=== PATIENT | female | born 1940 | race Caucasian/White ===

== ENCOUNTER 2019-07-27 15:22 | Outpatient (CLI) | payer MEDICARE, SELFPAY ==
--- NOTE | ~2019-07-27 | XR_ITS ---
XR chest 2V 07/27/2019 15:41 Indication: Cough with shortness of breath Procedure: PA and lateral views of the chest Comparison: Comparison to multiple prior studies sequentially, with oldest reviewed study dated 08/22. Findings: Cardiomegaly. Improving right basilar airspace disease, consistent with resolving pneumonia . Left lung clear. No pleural effusion or pneumothorax. Impression: 1: Improving right basilar airspace disease, consistent with resolving pneumonia. Reviewed, dictated and finalized at location A. UATOR TRANSFER STUDENTS Impression: 1: Improving right basilar airspace disease, consistent with resolving pneumoni a.
== END 2019-07-27 15:23 | disposition home or self-care (01) ==
PROVIDERS: PCP Physician Assistant; Visit Provider Physician Assistant
DX: R93.89 Abnormal findings on diagnostic imaging of other specified body structures (principal)
CPT/HCPCS: 71046

== ENCOUNTER 2019-08-10 12:40 | Outpatient (CLI) | payer MEDICARE, SELFPAY ==
--- NOTE | ~2019-08-10 | MR_ITS ---
EXAMINATION: MR brain/brain stem wo con DATE: 08/10/2019 14:08 INDICATION: Abnormal gait. TECHNIQUE: Magnetic resonance imaging (MRI) of the brain and brainstem was performed without intraven ous contrast. Sequences included sagittal and axial T1-weighted FSE, axial diffusion-weighted FS EPI, axial T2*-weighted GRE, axial T2-weighted FLAIR Propeller, and axial T2-weighted Propeller. Apparent diffusion coefficient (ADC) maps were created. COMPARISON: Brain MRI 09/09/2006 FINDINGS: There are scattered areas of nonspecific increased T2-weighted signal intensity in the cere bral white matter and natalie. There is no intracranial hemorrhage, acute infarction, or abnormal intrac ranial mass lesion. The ventricles are normal in size. There is a trace right mastoid effusion. There are likely changes of ocular lens replacement surgeries. The paranasal sinuses are clear. IMPRESSION: 1. Moderate nonspecific cerebral white matter disease and pontine disease, which likely represents ch ronic small vessel ischemic disease, worsened from 09/09/2006. Reviewed, dictated and finalized at location A. GER FURNITURE IMPRESSION: 1. Moderate nonspecific cerebral white matter disease and pontine disease, whic h likely represents chronic small vessel ischemic disease, worsened from 09/10/19 07.
== END 2019-08-10 12:41 | disposition home or self-care (01) ==
LOC: ANHIMG 12:48
PROVIDERS: PCP Physician Assistant; Visit Provider Physician Assistant
DX: R26.89 Other abnormalities of gait and mobility (principal); R27.8 Other lack of coordination; R93.0 Abnormal findings on diagnostic imaging of skull and head, not elsewhere classified
CPT/HCPCS: 70551

== ENCOUNTER 2019-12-23 12:08 | Outpatient (CLI) | payer MEDICARE, SELFPAY ==
--- NOTE | ~2019-12-23 | MR_ITS ---
EXAMINATION: MR cervical spine wo con DATE: 12/23/2019 13:05 INDICATION: Ataxia. TECHNIQUE: Magnetic resonance imaging (MRI) of the cervical spine was performed without intravenous c ontrast. Sequences included sagittal T2-weighted FSE, sagittal T2-weighted FS FSE, sagittal T1-weight ed FSE, axial MERGE, and axial T2-weighted FSE. COMPARISON: None FINDINGS: There is 8 degrees levocurvature of cervical spine. Vertebral body heights are normal. Ther e is severely decreased disc height at C3-C4 and C4-C5 and mildly decreased disc height at C5-C6. The spinal cord signal intensity is normal. The following disc levels are specifically discussed: C2-C3: The disc does not extend beyond the endplate margin. There is no uncovertebral joint osteoarth ritis. There is mild bilateral facet joint osteoarthritis. There is no neural foraminal stenosis. The re is no central canal stenosis. C3-C4: The disc is bulging. There is mild right and moderate left uncovertebral joint osteoarthritis. There is no facet joint osteoarthritis. There is mild left neural foraminal stenosis. There is mild central canal stenosis. C4-C5: The disc is bulging. There is moderate bilateral uncovertebral joint osteoarthritis. There is no facet joint osteoarthritis. There is no neural foraminal stenosis. There is mild central canal wisam nosis. C5-C6: The disc is bulging. There is moderate right and mild left uncovertebral joint osteoarthritis. There is mild right facet joint osteoarthritis. There is mild right neural foraminal stenosis. There is mild central canal stenosis. C6-C7: The disc does not extend beyond the endplate margin. There is no uncovertebral joint osteoarth ritis. There is mild right facet joint osteoarthritis. There is no neural foraminal stenosis. There i s no central canal stenosis. C7-T1: The disc does not extend beyond the endplate margin. There is no uncovertebral joint osteoarth ritis. There is severe right and mild left facet joint osteoarthritis. There is mild right neural for aminal stenosis. There is no central canal stenosis. IMPRESSION: 1. Severe cervical spondylosis. Reviewed, dictated and finalized at location A.
== END 2019-12-23 12:09 | disposition home or self-care (01) ==
PROVIDERS: PCP Internal Medicine; Visit Provider Psychiatry & Neurology Neurology
DX: R27.0 Ataxia, unspecified (principal); M47.892 Other spondylosis, cervical region
CPT/HCPCS: 72141

== ENCOUNTER 2020-03-19 17:32 | Emergency (ER) | payer MEDICARE, SELFPAY ==
--- NOTE | ~2020-03-19 | CT_ITS ---
EXAMINATION: CT abdomen pelvis wo con EXAM DATE: 03/19/2020 19:57 INDICATION: Abdominal pain for several days. TECHNIQUE: Spiral CT of the abdomen and pelvis was performed without contrast. Axial, coronal and s agittal images were reviewed. The dose-length product (DLP) for this examination was 910.42 mGy-cm. The exposure was tailored according to patient size (auto mA exposure control), and iterative recons truction (ASIR) was used as additional dose reduction technique. Comparison is made to prior examinat ion from 05/09/2018. FINDINGS: Numerous mesenteric calcifications, along the root of the mesentery are again noted, with m ild increase in density. Can't really appreciate any noncalcified soft tissue component. Could be kitty or granulomatous process, carcinoid or treated malignancy. Nodular cirrhotic appearing liver. Spleen, adrenal glands, pancreas are unremarkable. There are chol ecystectomy clips. There is no nephrolithiasis or hydronephrosis. The uterus is not identified and has likely been surgically resected. The bladder is unremarkable. There is no retroperitoneal or p elvic lymphadenopathy. There is moderate scattered arteriosclerotic disease. Small umbilical, moder ate-sized infraumbilical fat-containing hernias. The appendix is normal. The stomach and small bowel are unremarkable. There is expected amount of c olonic stool. No free intraperitoneal gas. There is cardiomegaly and mild basilar bronchiectasis. The lung bases are unremarkable. There are no osteoblastic or osteolytic lesions identified. IMPRESSION: 1. Mild interval progression in amount of mesenteric root scattered calcifications, differential lawanda gnosis including prior granulomatous process, carcinoid, treated malignancy. 2. Small umbilical, moderate infraumbilical fat-containing hernias. 3. Cirrhosis. 4. Cardiomegaly. 5. Bronchiectasis. 6. No acute intra-abdominal findings. Reviewed, dictated and finalized at location A. IMPRESSION: 1. Mild interval progression in amount of mesenteric root scattered calcificat ions, differential diagnosis including prior granulomatous process, carcinoid, treated malignancy. 2. Small umbilical, moderate infraumbilical fat-containing hernias. 3. Cirrhosis. 4. Cardiomegaly. 5. Bronchiectasis. 6. No acute intra-abdominal findings.
[2020-03-19 18:47] VITALS: BP 151/74; PULSE 55; RESP 16; TEMP 36.1; O2SAT 100
[2020-03-19 19:09] LABS: Basophils Percent Auto 0.5 % (0.2-1.2); Eosinophils Absolute Auto 0.3 K/mm3 (0-0.3); Eosinophils Percent Auto 3.2 % (0-4.4); Hematocrit 39.6 % (37.0-47.0); Hemoglobin 12.8 g/dL (12.0-15.0); Immature Granulocyte Absolute 0.03 K/mm3 (0.00-0.031); Immature Granulocyte Percent A 0.4 % (0-0.5); Lymphocytes Absolute Auto 0.53 K/mm3 (0.9-3.2); Lymphocytes Percent Auto 6.3 % (18.3-44.2); Mean Corpuscular HGB Conc 32.3 g/dl (32-36); Mean Corpuscular Volume 92.7 fl (80-100); Mean Platelet Volume 9.8 fl (7.4-10.4); Monocytes Absolute Auto 0.6 K/mm3 (0.1-0.6); Monocytes Percent Auto 7.3 % (2.6-8.5); Neutrophils Percent Auto 82.3 % (45.5-73.1); Platelet Count Result 238 k/mm3 (150-375); Red Blood Count 4.27 M/mm3 (4.2-5.4); Red Cell Distribution Width 13.5 % (11.5-14.5); White Blood Count 8.5 K/mm3 (4.5-10.0)
[2020-03-19 19:15] LABS: Alanine Aminotransferase 26 U/L (4-35); Albumin Level 3.5 g/dL (3.5-5.1); Alkaline Phosphatase 212 U/L (38-126); Anion Gap 4 mmol/L (8-16); Aspartate Amino Transferase 42 U/L (14-36); Bilirubin,Total 0.5 mg/dL (0.2-1.3); Blood Urea Nitrogen 18 mg/dL (7-17); Calcium 9.1 mg/dL (8.4-10.2); Carbon Dioxide 32 mmol/L (22-30); Chloride 102 mmol/L (98-107); Estimated CRCL calculation 48 ml/min; Estimated Glomerular Filt Rate > 60; Glucose 97 mg/dL (65-105); Lipase 62 U/L (23-300); Potassium 3.8 mmol/L (3.4-5.0); Sodium 138 mmol/L (137-145)
[2020-03-19] MEDS: FAMOTIDINE 20 MG/2 ML VIAL IV PUSH (19:34)
[2020-03-19] MEDS: SODIUM CHLORIDE 0.9% IV 1,000 ML 999 ML IV CONT (19:36)
--- NOTE | 2020-03-19 19:42 | ED.ABDPAIN ---
HPI - Abdominal Pain General Chief Complaint: Abdominal Pain Stated Complaint: ABD PAIN INT X2D VIA EMS Time Seen by Provider: 03/19/20 19:26 Source: patient Mode of arrival: ambulatory Limitations: no limitations History of Present Illness HPI narrative: Patient is a 79-year-old female who presents to emergency department for evaluation of pain to the right side of the abdomen that has been intermittent for months has had intermittent episodes since yesterday patient currently does not have pain denies any fever chills nausea vomiting urinary or bowel issues presents in no distress has taken [id number] medication with minimal improvement has not been seen for this complaint Related Data Home Medications Medication Instructions Recorded Confirmed vilazodone [Viibryd] 10 mg PO DAILY 06/14/19 02/25/20 Allergies Allergy/AdvReac Type Severity Reaction Status Date / Time Gadolinium-Containing Allergy Severe Chest Pain Verified 02/19/20 14:44 Contrast Medi wheat Allergy Mild runny nose Verified 02/19/20 14:44 ioversol Allergy Unknown Other Verified 02/19/20 14:44 morphine Allergy Unknown Liver Verified 02/19/20 14:44 function tests abnormal acetaminophen AdvReac Severe kidney Verified 02/19/20 14:44 stop working tramadol AdvReac Severe Other Verified 02/19/20 14:44 benzonatate AdvReac Unknown Headache Verified 02/19/20 14:44 codeine AdvReac Unknown Headache Verified 02/19/20 14:44 Review of Systems Review of Systems: All systems reviewed & are unremarkable except as noted in HPI and below PMFSH Past Medical History Medical History (Updated 03/19/20 @ 20:26 by Zi Brown PA-C) Depression Irregular heart beat Loss of balance Thyroid disease Surgical History Surgical History H/O: hysterectomy 1974 History of cholecystectomy 1997 History of knee replacement - 1997, 1998, 1999, 2001 History of tubal ligation 1973 Family History Family History Father Hypertension Cerebrovascular accident, Onset Age: 70 Patient's father is Mother Hypertension Family history of aortic aneurysm, Onset Age: 81 Sibling Hypertension Family history of diabetes mellitus in first degree relative Family history of coronary artery disease Family history of premature coronary heart disease Patient's brother is Family history of malignant neoplasm of brain Family history of type 2 diabetes mellitus Social History Social History Smoking status: Never smoker Second hand tobacco smoke exposure: No Alcohol intake: never Substance use type: marijuana Exam Narrative: Exam Narrative: GENERAL: Well-appearing, obese, and in no acute distress. HEAD: Normocephalic, atraumatic. EYES: PERRLA and EOMI. ENT: Nares clear, no rhinorrhea or epistaxis. Mucous membranes moist. Oropharynx without tonsillar hypertrophy exudate or other lesions. NECK: Supple. No adenopathy or masses. CHEST: Clear to auscultation. No respiratory distress. No wheezes rales or rhonchi HEART: Regular rate and rhythm. No murmur heard. Normal peripheral pulses. ABDOMEN: Soft, right-sided abdominal tenderness without rebound or guarding, nondistended, normal active bowel sounds. EXTREMITIES: Normal range of motion. No edema. SKIN: Warm, dry, no rash. NEURO: No focal deficits. Alert and oriented x3. PSYCH: Normal mood and affect. Course Course Emergency Course: Patient in the room at this time aware of case findings treatment plan diagnosis agreeing to follow-up as directed or to return if symptoms worsen or concerns. Patient without high risk changes in the imaging and blood work will be referred back to primary care and GI for further evaluation of her long-term abdominal pain Vital Signs Radha
[2020-03-19 20:27] VITALS: BP 205/56; PULSE 57; RESP 15; O2SAT 100
[2020-03-19 20:39] LABS: Add Urine Microscopic? YES; Appearance Urine Clear (Clear); Bilirubin Urine Negative (Negative); Blood Urine Negative (Negative); Color Urine Yellow (Yellow); Glucose Urine UA Negative (Negative); Ketones Urine Negative (Negative); Leukocyte Esterase Ur Trace LEU/UL (Negative); Nitrate Urine Negative (Negative); Protein Urine Negative (Negative); RBC Urine 0-2 /hpf (0-2); Specific Grav Ur 1.008 (1.001-1.035); Squamous Epithelial Cell Urine Rare /hpf (Few); Urobilinogen Urine Negative mg/dL (<2.0)
== END 2020-03-19 21:17 | disposition home or self-care (01) ==
PROVIDERS: Emergency Provider Emergency Medicine; PCP Internal Medicine
DX: R10.9 Unspecified abdominal pain (principal); F32.9 Major depressive disorder, single episode, unspecified
CPT/HCPCS: 36415; 74176; 80053; 81001; 83690; 85025; 96361; 96374; 99284; J7030

== ENCOUNTER 2020-04-17 12:45 | Outpatient (CLI) | payer MEDICARE, SELFPAY ==
--- NOTE | 2020-04-17 14:30 | NEURO_ITS ---
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 # Fairly normal and symmetrical nerve conduction study in upper extremities. # Decreased responses in lower extremities. # Needle/EMG exam revealed neurogenic changes in lower extremities but no fibs or myotonia. # Findings compatible with neuropathy. Nerve Conduction Studies Anti Sensory Summary Table Stim Site NR Peak (ms) P-T Amp (?V) Site1 Site2 Delta-P (ms) Dist (cm) Abhi (m/s) Left Median Anti Sensory (2-3nd Digit) Wrist 3.5 31.4 Wrist 2-3nd Digit 3.5 14.0 40 Wrist 3.7 58.2 Wrist 2-3nd Digit 3.5 14.0 40 Right Median Anti Sensory (2-3nd Digit) Wrist 3.3 59.1 Wrist 2-3nd Digit 3.3 14.0 42 Wrist 3.2 31.4 Wrist 2-3nd Digit 3.3 14.0 42 Left Radial Anti Sensory (Base 1st Digit) Wrist 2.4 9.9 Wrist Base 1st Digit 2.4 0.0 Right Radial Anti Sensory (Base 1st Digit) Wrist 2.6 8.6 Wrist Base 1st Digit 2.6 0.0 Left Sup Fibular Anti Sensory (Ant Lat Mall) 14 cm 4.3 6.8 14 cm Ant Lat Mall 4.3 16.0 37 Right Sup Fibular Anti Sensory (Ant Lat Mall) NO RESPONSE 14 cm NR 14 cm Ant Lat Mall 16.0 Left Sural Anti Sensory (Lat Mall) Calf 4.2 8.4 Calf Lat Mall 4.2 16.0 38 Right Sural Anti Sensory (Lat Mall) Calf 3.4 9.7 Calf Lat Mall 3.4 16.0 47 Left Ulnar Anti Sensory (5th Digit) Wrist 2.6 58.3 Wrist 5th Digit 2.6 14.0 54 Right Ulnar Anti Sensory (5th Digit) Wrist 2.5 46.7 Wrist 5th Digit 2.5 14.0 56 Motor Summary Table Stim Site NR Onset (ms) O-P Amp (mV) Site1 Site2 Delta-0 (ms) Dist (cm) Abhi (m/s) Left Median Motor (Abd Poll Brev) Wrist 3.7 2.1 Elbow Wrist 5.1 30.0 59 Elbow 8.8 0.4 Right Median Motor (Abd Poll Brev) Wrist 3.0 6.2 Elbow Wrist 4.6 28.0 61 Elbow 7.6 3.4 Left Peroneal Motor (Vastus Med) Ankle 4.1 0.9 Popit Ankle 9.4 40.0 43 Popit 13.5 0.7 Right Peroneal Motor (Vastus Med) Ankle 4.8 0.2 Popit Ankle 9.0 39.0 43 Popit 13.8 0.9 Left Tibial Motor (Abd Wilson Brev) Ankle 4.5 0.4 Knee Ankle 10.6 43.0 41 Knee 15.1 3.1 Right Tibial Motor (Abd Wilson Brev) Ankle 4.9 1.6 Knee Ankle 9.9 42.0 42 Knee 14.8 1.1 Left Ulnar Motor (Abd Dig Minimi) Wrist 3.0 4.8 A Elbow Wrist 4.8 30.0 63 A Elbow 7.8 4.3 Right Ulnar Motor (Abd Dig Minimi) Wrist 2.9 4.5 A Elbow Wrist 5.0 29.0 58 A Elbow 7.9 3.1 F Wave Studies NR F-Lat (ms) L-R F-Lat (ms) Left Median (Mrkrs) (Abd Poll Brev) 29.87 1.66 Right Median (Mrkrs) (Abd Poll Brev) 28.20 1.66 Left Peroneal (Mrkrs) (EDB) 57.10 0.12 Right Peroneal (Mrkrs) (EDB) 57.21 0.12 Left Tibial (Mrkrs) (Abd Hallucis) 55.91 0.82 Right Tibial (Mrkrs) (Abd Hallucis) 56.73 0.82 Left Ulnar (Mrkrs) (Abd Dig Min) 28.38 1.29 Right Ulnar (Mrkrs) (Abd Dig Min) 29.68 1.29 EMG Side Muscle Nerve Root Ins Act Fibs Amp Dur Recrt Comment Right 1stDorInt Ulnar C8-T1 Nml Nml Nml Nml Nml Right Ext Indicis Radial (Post Int) C7-8 Nml Nml Nml Nml Nml Right Ext Digitorum Radial (Post Int) C7-8 Nml Nml Nml Nml Nml Right BrachioRad Radial C5-6 Nml Nml Nml Nml Nml Right PronatorTeres Median C6-7 Nml Nml Nml Nml Nml
== END 2020-04-17 12:46 | disposition home or self-care (01) ==
PROVIDERS: PCP Physician Assistant; Visit Provider Psychiatry & Neurology Neurology
DX: G62.9 Polyneuropathy, unspecified (principal)
CPT/HCPCS: 95886; 95913

== ENCOUNTER 2020-05-05 12:41 | Outpatient (NON) | payer MEDICARE, SELFPAY ==
[2020-05-07 13:30] LABS: SARS-CoV-2 RNA PCR Negative
== END 2020-05-05 12:42 ==
LOC: ANHCOVIDDT 12:43
PROVIDERS: PCP Physician Assistant; Visit Provider Physician Assistant
DX: R68.89 Other general symptoms and signs (principal); Z20.828 Contact with and (suspected) exposure to other viral communicable diseases
CPT/HCPCS: 87635; C9803; U0003

== ENCOUNTER 2020-09-09 12:31 | Outpatient (CLI) | payer MEDICARE, SELFPAY ==
--- NOTE | 2020-09-09 13:02 | ECHO_ITS ---
Patient Info Name: Jenniffer Cm Age: 80 years : 1940 Gender: Female Ht: 65 in Wt: 175 lbs BSA: 1.93 m2 HR: 63 bpm BP: 182 / 84 mmHg Heart Rhythm: Atrial Fibrillation Exam Date: 09/09/2020 1:18 PM Exam Location: [facility] Patient Status: Outpatient Admit Date: 09/09/2020 Staff Ordering Physician: Kirby Rodarte PA-C Braille Translator: Lucita Dang RDCS Attending Provider: Kirby Rodarte PA-C Referring Physician: Aster COOK; Exam Type: CA echo doppler color flow Study Info Indications R01.1 - Cardiac murmur, unspecified Complete two-dimensional, color flow and Doppler transthoracic echocardiogram is performed. Summary 1. Complete two-dimensional, color flow and Doppler transthoracic echocardiogram is performed. 2. Left ventricular chamber dimension is normal. 3. Ventricular septum is moderately to severely sigmoid shaped suggestive of hypertrophic cardiomyopathy. No LVOT obstruction. 4. Left ventricular systolic function is normal, estimated at 60-65%. 5. The left ventricular diastolic function is grade I diastolic dysfunction. 6. E/e' 17 is elevated. 7. Left atrial chamber dimension is mildly enlarged. 8. There is mild aortic valve sclerosis. 9. There is mild tricuspid valve regurgitation. 10. No pulmonary hypertension, estimated pulmonary arterial systolic pressure is 35 mmHg. Left Ventricle E/e' 17 is elevated. Ventricular septum is moderately to severely sigmoid shaped suggestive of hypertrophic cardiomyopathy. No LVOT obstruction. Left ventricular chamber dimension is normal. Left ventricular systolic function is normal, estimated at 60-65%. The left ventricular diastolic function is grade I diastolic dysfunction. Right Ventricle Right ventricular chamber dimension is normal. Right ventricular systolic function is normal. Left Atria Left atrial chamber dimension is mildly enlarged. Right Atria Right atrial chamber dimension is normal. Aortic Valve The aortic valve is trileaflet. There is mild aortic valve sclerosis. There is no aortic valve stenosis. There is no aortic valve regurgitation. Pulmonic Valve There is no pulmonic regurgitation. Mitral Valve There is no mitral valve stenosis. There is no mitral valve regurgitation. Tricuspid Valve There is mild tricuspid valve regurgitation. No pulmonary hypertension, estimated pulmonary arterial systolic pressure is 35 mmHg. Pericardium/Pleural There is no pericardial effusion. Inferior Vena Cava Normal inferior vena cava with >50% collapse upon inspiration consistent with normal right atrial pressure, 5 mmHg. Aorta The aortic root size at the sinus of Valsalva is normal. Left Ventricular Outflow Tract Name Value Normal LVOT 2D LVOT Diameter 1.8 cm LVOT Doppler LVOT Peak Gradient 4 mmHg LVOT Mean Gradient 2 mmHg LVOT VTI 24 cm LVOT VTI/AV VTI Ratio 0.5 LVOT Stroke Volume 62 ml LVOT CO 3.3 l/min
== END 2020-09-09 12:32 | disposition home or self-care (01) ==
LOC: ANHCARD 12:32
PROVIDERS: PCP Physician Assistant; Visit Provider Physician Assistant
DX: R01.1 Cardiac murmur, unspecified (principal); I36.1 Nonrheumatic tricuspid (valve) insufficiency; I35.8 Other nonrheumatic aortic valve disorders
CPT/HCPCS: 93306

== ENCOUNTER 2020-10-13 15:46 | Outpatient (CLI) | payer MEDICARE, SELFPAY ==
--- NOTE | ~2020-10-13 | XR_ITS ---
EXAMINATION: XR hip RT 2V w AP pelvis EXAM DATE: 10/13/2020 16:11 INDICATION: M25.551 - Pain in right hip; lat pain, fall months ago. TECHNIQUE: Right hip frontal, 'frog leg' projections for interpretation. Frontal projection pelvis. There is no prior study for comparison. FINDINGS: Smooth right hip femoral head contour, no radiographic evidence of avascular necrosis. 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 There is mild to moderate symmetric bilateral hip primary osteoarthritis. There are no acute or subacute pelvic or right hip fractures or dislocations identified. There is no subcu taneous gas. Amorphous calcifications corresponding to the mesenteric calcifications described on prior CT reports . There are no radiopaque foreign bodies. IMPRESSION: Chronic findings as above. Reviewed, dictated and finalized at location A. IMPRESSION: Chronic findings as above.
== END 2020-10-13 15:47 | disposition home or self-care (01) ==
PROVIDERS: PCP Physician Assistant; Visit Provider Physician Assistant
DX: M25.551 Pain in right hip (principal)
CPT/HCPCS: 73502

== ENCOUNTER → 2020-10-21 06:40 | Outpatient (CLI) | payer MEDICARE, SELFPAY ==
[2020-10-21 20:06] LABS: SARS-CoV-2 RNA PCR Negative
== END ==
PROVIDERS: PCP Physician Assistant; Visit Provider Physician Assistant
DX: R09.89 Other specified symptoms and signs involving the circulatory and respiratory systems (principal); Z20.822 Contact with and (suspected) exposure to COVID-19
CPT/HCPCS: C9803; U0003; U0005

== ENCOUNTER → 2021-02-12 02:44 | Outpatient (CLI) | payer MEDICARE, SELFPAY ==
[2021-02-12 20:44] LABS: SARS-CoV-2 RNA PCR Negative
== END ==
PROVIDERS: PCP Physician Assistant; Visit Provider Physician Assistant
DX: Z20.822 Contact with and (suspected) exposure to COVID-19 (principal)
CPT/HCPCS: C9803; U0003; U0005

== ENCOUNTER 2021-03-26 10:18 | Outpatient (CLI) | payer MEDICARE, SELFPAY ==
[2021-03-26 10:52] LABS: Add Urine Microscopic? NO; Appearance Urine Clear (Clear); Bilirubin Urine Negative (Negative); Blood Urine Negative (Negative); Color Urine Straw (Yellow); Glucose Urine UA Negative (Negative); Ketones Urine Negative (Negative); Leukocyte Esterase Ur Negative LEU/UL (NEGATIVE); Nitrate Urine Negative (Negative); Protein Urine Negative (Negative); Urobilinogen Urine Negative mg/dL (<2.0)
[2021-03-26 12:00] LABS: Specific Grav Ur 1.004 (1.001-1.035)
== END 2021-03-26 10:19 | disposition home or self-care (01) ==
LOC: ANHLAB 10:21
PROVIDERS: PCP Physician Assistant; Visit Provider Physician Assistant
DX: R30.0 Dysuria (principal)
CPT/HCPCS: 81003; 87086

== ENCOUNTER 2021-04-15 15:00 | Outpatient (CLI) | payer MEDICARE, SELFPAY ==
--- NOTE | ~2021-04-15 | US_ITS ---
EXAMINATION:US venous doppler LE BI INDICATION:Leg edema TECHNIQUE: Multiple grayscale, color flow and Doppler images of the right and left lower extremity de ep venous systems were obtained and reviewed. COMPARISON:01/02/2019 FINDINGS: The common femoral, superficial femoral and popliteal veins demonstrate normal respiratory variation, augmentation and compressibility. Color flow is also seen within the posterior tibial, pe roneal, greater saphenous and profunda veins. IMPRESSION: 1: No lower extremity deep venous thrombosis. Reviewed, dictated and finalized at location A. ERN VAULT CLERK
== END 2021-04-15 15:01 | disposition home or self-care (01) ==
PROVIDERS: PCP Physician Assistant; Visit Provider Internal Medicine Cardiovascular Disease
DX: R60.9 Edema, unspecified (principal)
CPT/HCPCS: 93970

== ENCOUNTER 2021-05-25 09:18 | Outpatient (CLI) | payer MEDICARE, SELFPAY ==
--- NOTE | ~2021-05-25 | US_ITS ---
US abdomen limited INDICATION: Liver nodule PROCEDURE: Realtime right upper abdominal ultrasound. COMPARISON: No prior studies for comparison. FINDINGS: The pancreas is normal without focal mass or pancreatic ductal dilation. Liver echotexture is heterogeneous. No discrete mass identified. There is normal directional flow in the portal vein. Gallbladder is surgically absent. Common bile duct measures 5 mm. No sonographic Redman's sign. IMPRESSION: 1: Coarse heterogeneous liver echotexture without discrete mass. 2: Status post cholecystectomy. Reviewed, dictated and finalized at location A. TANNER
== END 2021-05-25 09:19 | disposition home or self-care (01) ==
LOC: ANHIMG 09:27
PROVIDERS: PCP Physician Assistant
DX: K76.9 Liver disease, unspecified (principal); Z90.49 Acquired absence of other specified parts of digestive tract
CPT/HCPCS: 76705

== ENCOUNTER 2021-11-13 12:23 | Outpatient (CLI) | payer MEDICARE, SELFPAY ==
--- NOTE | 2021-11-13 12:37 | ECHO_ITS ---
Patient Info Name: Jenniffer Cm Age: 81 years : 1940 Gender: Female Ht: 65 in Wt: 180 lbs BSA: 1.96 m2 HR: 58 bpm BP: 152 / 72 mmHg Heart Rhythm: Bradycardia Technical Quality: Fair Exam Date: 11/13/2021 12:49 PM Exam Location: [facility] Patient Status: Outpatient Admit Date: 11/13/2021 Staff Ordering Physician: Donte Esqueda DO Etymology Teacher: Lucita Dang RDCS Attending Provider: Donte Esqueda DO Exam Type: CA echo doppler color flow Study Info Complete two-dimensional, color flow and Doppler transthoracic echocardiogram is performed. Summary 1. Complete two-dimensional, color flow and Doppler transthoracic echocardiogram is performed. 2. Left ventricular chamber dimension is normal. 3. Ventricular septum is sigmoid shaped. No LVOT obstruction. 4. Left ventricular systolic function is normal, estimated at 55-60%. 5. The left ventricular diastolic function is abnormal. 6. E/e' 18 is elevated. 7. Left atrial chamber dimension is moderately enlarged. 8. Right atrial chamber dimension is mildly enlarged. 9. There is mild aortic valve sclerosis. 10. There is mild tricuspid valve regurgitation. 11. Mild pulmonary hypertension, estimated pulmonary arterial systolic pressure is 44 mmHg. Left Ventricle E/e' 18 is elevated. Ventricular septum is sigmoid shaped. No LVOT obstruction. Left ventricular chamber dimension is normal. Left ventricular systolic function is normal, estimated at 55-60%. The left ventricular diastolic function is abnormal. Right Ventricle Right ventricular systolic function is normal and with normal TAPSE 1.8 cm. Right ventricular chamber dimension is normal. Left Atria Left atrial chamber dimension is moderately enlarged. Right Atria Right atrial chamber dimension is mildly enlarged. Aortic Valve The aortic valve is trileaflet. There is mild aortic valve sclerosis. There is no aortic valve stenosis. There is no aortic valve regurgitation. Pulmonic Valve There is no pulmonic regurgitation. Mitral Valve There is no mitral valve stenosis. There is no mitral valve regurgitation. Tricuspid Valve There is mild tricuspid valve regurgitation. Mild pulmonary hypertension, estimated pulmonary arterial systolic pressure is 44 mmHg. Pericardium/Pleural There is no pericardial effusion. Inferior Vena Cava Normal inferior vena cava with >50% collapse upon inspiration consistent with normal right atrial pressure, 5 mmHg. Aorta The aortic root size at the sinus of Valsalva is normal. Left Ventricular Outflow Tract Name Value Normal LVOT 2D LVOT Diameter 1.8 cm LVOT Doppler LVOT Peak Gradient 3 mmHg LVOT Mean Gradient 2 mmHg LVOT VTI 23 cm LVOT VTI/AV VTI Ratio 0.5 LVOT Stroke Volume 60 ml LVOT CO 3.2 l/min LVOT CI 1.6 l/min/m2 Pulmonic Valve Name
== END 2021-11-13 12:24 | disposition home or self-care (01) ==
LOC: ANHCARD 12:26
PROVIDERS: PCP Physician Assistant; Visit Provider Internal Medicine Cardiovascular Disease
DX: I42.1 Obstructive hypertrophic cardiomyopathy (principal); I27.20 Pulmonary hypertension, unspecified; I51.7 Cardiomegaly
CPT/HCPCS: 93306

== ENCOUNTER 2021-12-16 15:17 | Outpatient (CLI) | payer MEDICARE, SELFPAY ==
--- NOTE | ~2021-12-16 | XR_ITS ---
XR shoulder RT min 2V 12/16/2021 16:07 Indication: Right shoulder pain. History of arthritis. Procedure: 4 views right shoulder Comparison: 03/30/2016 Findings: Chronic healed right humeral neck fracture. Moderate glenohumeral joint osteoarthritis. No acute fracture or traumatic malalignment. Surrounding osseous structures and soft tissues are unremar kable. Impression: 1: No acute fracture. 2: Moderate right glenohumeral joint osteoarthritis. Reviewed, dictated and finalized at location A. Impression: 1: No acute fracture. 2: Moderate right glenohumeral joint osteoarthritis.
--- NOTE | ~2021-12-16 | XR_ITS ---
XR shoulder LT min 2V DATE: 12/16/2021 16:07 INDICATION: Pain and clicking of left shoulder TECHNIQUE: 4 views COMPARISON: None FINDINGS: There is diffuse osteopenia. There is severe left glenohumeral joint space narrowing and prominent periarticular spurring, compati ble with severe osteoarthritis. No fracture or dislocation, periosteal reaction or bone destruction is detected. No abnormal left ede ulder soft tissue calcification. IMPRESSION: Severe left glenohumeral osteoarthritis Osteopenia Reviewed, dictated and finalized at location A.
--- NOTE | ~2021-12-16 | XR_ITS ---
XR lumbar spine 6V w bending 12/16/2021 16:07 Indication: Low back pain Procedure: 7 views of the lumbar spine including flexion and extension views. Comparison: 01/07/2004 Findings: There is mild disc narrowing at all lumbar levels. There is grade 1 degenerative spondyloli sthesis at L4-5. No fracture, subluxation or dislocation. No significant alteration of alignment with flexion/extension. There is levoscoliosis. Amorphous calcifications are identified, likely mesenteri c calcifications. There are cholecystectomy clips. Impression: 1: Moderate lumbar spondylosis with levoscoliosis and grade 1 degenerative spondylolisthesis at L4-5. Reviewed, dictated and finalized at location A. Impression: 1: Moderate lumbar spondylosis with levoscoliosis and grade 1 degenerative spon dylolisthesis at L4-5.
--- NOTE | ~2021-12-16 | XR_ITS ---
XR hip BI 2V w AP pelvis 12/16/2021 16:06 Indication: Bilateral hip pain Procedure: 5 views of the hips including AP pelvis Comparison: 10/13/2020 Findings: Pelvic rings are intact. No fracture or traumatic malalignment. Sacral foramen are symmetri c. No significant joint space narrowing. No focal soft tissue abnormality. There is lower lumbar spon dylosis. Amorphous calcifications are identified overlying the sacrum, consistent with previously rachel ntified mesenteric calcifications. Impression: 1: No significant bone or joint abnormality. Reviewed, dictated and finalized at location A. Impression: 1: No significant bone or joint abnormality.
== END 2021-12-16 15:18 | disposition home or self-care (01) ==
PROVIDERS: PCP Physician Assistant; Visit Provider Physician Assistant
DX: M19.011 Primary osteoarthritis, right shoulder (principal); M25.552 Pain in left hip; M25.551 Pain in right hip; M19.012 Primary osteoarthritis, left shoulder; M43.16 Spondylolisthesis, lumbar region
CPT/HCPCS: 72114; 73030; 73521

== ENCOUNTER 2022-04-12 15:56 | Outpatient (CLI) | payer MEDICARE, SELFPAY ==
--- NOTE | ~2022-04-12 | XR_ITS ---
EXAMINATION: XR chest 2V DATE: 04/12/2022 16:27 INDICATION: Cough TECHNIQUE: Frontal and lateral views of the chest are obtained COMPARISON: 07/27/2019 FINDINGS: The lungs are free of acute opacities. No pleural effusion or pneumothorax. The cardiomedia stinal silhouette is normal. There is moderate thoracic spondylosis. IMPRESSION: 1. No acute cardiopulmonary abnormality. Reviewed, dictated and finalized at location B. 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
== END 2022-04-12 15:57 | disposition home or self-care (01) ==
PROVIDERS: PCP Physician Assistant; Visit Provider Internal Medicine
DX: R05.9 Cough, unspecified (principal)
CPT/HCPCS: 71046

== ENCOUNTER → 2022-05-17 14:44 | Outpatient (CLI) | payer MEDICARE, SELFPAY ==
--- NOTE | ~2022-05-17 | CT_ITS ---
Non-contrast CT scan of the Abdomen and Pelvis Clinical indication: Incisional hernia Technique: 5 mm axial scans were obtained through the abdomen and pelvis without intravenous or oral contrast. Dose reduction technique was used on this scan by utilizing automated exposure control and iterative reconstruction technique. The dose-length product (DLP) was 926.84 mGy-cm. COMPARISON: 03/19/2020 Findings: Images through the lung bases reveal minimal patchy groundglass opacities, which appear ne w from prior exam. There is mild subpleural reticulation and minimal interstitial thickening at the l cristhian bases. The liver, spleen, pancreas, kidneys, and adrenals appear normal. Cholecystectomy clips noted. There is no aortic aneurysm. There is no evidence of bowel obstruction. There are 2 separate, ventral, fat-containing hernias, ess entially stable from prior exam, both essentially the midline, near the level of the umbilicus. These can be best visualized on sagittal images 92-103. Coarse calcifications of the mesenteric root are s imilar to prior exam. Images through the pelvis were performed. There is no evidence of ascites or lymphadenopathy. Urinary bladder unremarkable. Patient appears to be posthysterectomy. No pelvic mass identified. Impression: 2 fat-containing ventral hernias, as detailed above, essentially stable from prior exam. Coarse calcifications the mesenteric root are unchanged. Differential diagnosis again includes granul omatous disease, carcinoid, or other treated malignancy. Minimal groundglass opacities the lung bases. Correlate for atelectatic change or atypical infection. Probable underlying minimal bibasilar chronic interstitial pulmonary disease. Reviewed, dictated and finalized at location [] SAWYER Impression: 2 fat-containing ventral hernias, as detailed above, essentially stable from pr ior exam. Coarse calcifications the mesenteric root are unchanged. Differential diagnosis again includes granulomatous disease, carcinoid, or other treated malignancy. Minimal groundglass opacities the lung bases. Correlate for atelectatic change or atypical infection. Probable underlying minimal bibasilar chronic interstiti al pulmonary disease.
== END ==
PROVIDERS: PCP Physician Assistant; Visit Provider Surgery
DX: K40.90 Unilateral inguinal hernia, without obstruction or gangrene, not specified as recurrent (principal); K43.2 Incisional hernia without obstruction or gangrene; K43.9 Ventral hernia without obstruction or gangrene
CPT/HCPCS: 74176

== ENCOUNTER 2022-07-12 13:31 | Inpatient (IN) | payer MEDICARE, SELFPAY ==
[2022-07-12] VITALS (17 sets, daily range): BP systolic 124–148; BP diastolic 70–90; PULSE 70–96; RESP 15–24; TEMP 36.6–36.9; O2SAT 92–100; BMI 30.4
--- NOTE | ~2022-07-12 | XR_ITS ---
EXAMINATION: XR chest 1V portable DATE: 07/12/2022 17:13 INDICATION: Cough TECHNIQUE: frontal view of the chest was obtained. COMPARISON: Chest radiograph dated 04/12/2022 FINDINGS: Mild reticular opacities with bronchial wall thickening the bilateral mid and lower lung zones. No fo vince airspace consolidation, pleural effusion or pneumothorax. The cardiomediastinal silhouette is nor mal. IMPRESSION: 1. Bronchial wall thickening and mild reticular opacities without associated airspace consolidation i n the bilateral mid and lower lung zones which could represent bronchitis, reactive airway disease/as thma, mild pulmonary edema or or atypical/viral pneumonia. Reviewed, dictated and finalized at location A. 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 Bronchial wall thickening and mild reticular opacities without associated ai rspace consolidation in the bilateral mid and lower lung zones which could repr esent bronchitis, reactive airway disease/asthma, mild pulmonary edema or or at ypical/viral pneumonia.
--- NOTE | ~2022-07-12 | CT_ITS ---
EXAMINATION: CT abdomen pelvis wo con DATE: 07/12/2022 18:57 INDICATION: Abdominal pain TECHNIQUE: Computed tomography (CT) of the abdomen and pelvis was performed without intravenous contr ast. Automated exposure control and iterative reconstruction technique were employed. The dose-length product was 744.56 mGy-cm. COMPARISON: 05/17/2022 and 03/19/2020 FINDINGS: There is been some interval progression in mild patchy consolidation groundglass opacities at the dmitry ateral lung bases with associated bronchiectatic changes which suggests acute on chronic pneumonia. S table appearance of a lenticular region of pleural thickening consistent with round atelectasis/scarr ing at the posterior medial right lower lobe which is unchanged since 03/19/2020 . Mild cardiomegaly. Atherosclerotic coronary artery calcification. No pericardial or pleural effusion. Cholecystectomy c lips the gallbladder fossa. Subtle nodular liver surface suspicious for cirrhosis. Spleen, pancreas, left kidney and bilateral adrenal glands are normal. Possible 1 cm right renal cyst. Small fat-contai keysha umbilical hernia and moderate-sized fat-containing infraumbilical ventral hernia. Small amount o f fluid scattered throughout the small bowel and colon consistent with diarrhea. No bowel obstruction . A few scattered colonic diverticula without adjacent inflammatory stranding to suggest diverticulit is. The appendix is not visualized. No pericecal inflammatory change to suggest acute appendicitis.. Stable appearance of chronic chunky coarse calcifications centered at the root of the mesentery with out appreciable associated soft tissue mass. Bladder is normal. The uterus is not identified and has likely been surgically resected. No free intraperitoneal gas or fluid. No pathologically enlarged abd ominal or pelvic lymphadenopathy. There is calcified atherosclerosis of the aorta and many of the ot er arteries. Mild lumbar levoscoliosis with severe spondylosis. IMPRESSION: 1. Small amount of fluid scattered throughout the large and small bowel consistent with diarrhea. Cor relate clinically for enteritis. No other evident acute intra-abdominal/pelvic process. 2. Increase in patchy lung disease with associated chronic bronchiectasis at the bilateral lung bases consistent with acute on chronic pneumonia. 3. Cirrhosis. 4. Unchanged small fat-containing umbilical and moderate-sized fat-containing infraumbilical ventral hernias. 5. Chronic coarse calcification is at the root of mesentery without evident soft tissue component. Di fferential includes granulomatous disease, sclerosing mesenteritis, carcinoid tumor or treated lympho ma. 6. Mild cardiomegaly. Reviewed, dictated and finalized at location A. 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 Small amount of fluid scattered throughout the large and small bowel consist ent with diarrhea. Correlate clinically for enteritis. No other evident acute i ntra-abdominal/pelvic process. 2. Increase in patchy lung disease with associated chronic bronchiectasis at th e bilateral lung bases consistent with acute on chronic pneumonia. 3. Cirrhosis. 4. Unchanged small fat-containing umbilical and moderate-sized fat-containing i nfraumbilical ventral hernias. 5. Chronic coarse calcification is at the root of mesentery without evident sof t tissue component. Differential includes granulomatous disease, sclerosing mes enteritis, carcinoid tumor or treated lymphoma. 6. Mild cardiomegaly.
--- NOTE | 2022-07-12 13:51 | ECG_ITS ---
Measurements Intervals [place] Rate: 71 P: 1 IL: 202 QRS: -41 QRSD: 116 T: 71 QT: 387 QTc: 423 Interpretive Statements SINUS RHYTHM WITH OCCASIONAL SUPRAVENTRICULAR PREMATURE COMPLEXES LEFT AXIS DEVIATION INCOMPLETE RIGHT BUNDLE BRANCH BLOCK LEFT VENTRICULAR HYPERTROPHY AND ST-T CHANGE ABNORMAL ECG COMPARED TO ECG 01/01/2019 14:53:51 INCOMPLETE RIGHT BUNDLE-BRANCH BLOCK NOW PRESENT Electronically Signed On 07-12-2022 16:24:35 HOSE TURNER by Omid Puckett M.D.
[2022-07-12 14:30] LABS: Basophils Percent Auto 0.5 % (0.2-1.2); Eosinophils Absolute Auto 0.1 K/mm3 (0-0.3); Eosinophils Percent Auto 2.2 % (0-4.4); Hemoglobin 12.9 g/dL (12.0-15.0); Immature Granulocyte Absolute 0.02 K/mm3 (0.00-0.031); Immature Granulocyte Percent A 0.3 % (0-0.5); Lymphocytes Percent Auto 6.7 % (18.3-44.2); Mean Corpuscular HGB Conc 31.5 g/dl (32-36); Mean Corpuscular Hemoglobin 29.9 pg (26-34); Mean Corpuscular Volume 94.9 fl (80-100); Mean Platelet Volume 9.6 fl (7.4-10.4); Monocytes Absolute Auto 0.8 K/mm3 (0.1-0.6); Neutrophils Absolute Auto 4.6 K/mm3 (1.3-6.7); Neutrophils Percent Auto 77.3 % (45.5-73.1); Platelet Count Result 218 k/mm3 (150-375); Red Blood Count 4.32 M/mm3 (4.2-5.4); Red Cell Distribution Width 13.5 % (11.5-14.5); White Blood Count 5.9 K/mm3 (4.5-10.0)
[2022-07-12 14:37] LABS: Alanine Aminotransferase 20 U/L (6-35); Albumin Level 3.4 g/dL (3.5-5.1); Alkaline Phosphatase 238 U/L (38-126); Anion Gap 4 mmol/L (8-16); Aspartate Amino Transferase 31 U/L (14-36); Bilirubin,Total 0.5 mg/dL (0.2-1.3); Blood Urea Nitrogen 23 mg/dL (7-17); Calcium 8.2 mg/dL (8.4-10.2); Carbon Dioxide 32 mmol/L (22-30); Chloride 104 mmol/L (98-107); Estimated CRCL calculation 39 ml/min; Estimated Glomerular Filt Rate 48; Glucose 108 mg/dL (65-110); Potassium 3.8 mmol/L (3.4-5.0); Sodium 140 mmol/L (137-145)
[2022-07-12 14:56] LABS: Influenza A QL RT-PCR Negative (Negative); Influenza B QL RT-PCR Negative (Negative); SARS-CoV-2 RNA PCR Negative
[2022-07-12 17:40] LABS: Appearance Urine Slightly Cloudy (Clear); Bilirubin Urine Negative (Negative); Blood Urine Negative (Negative); Color Urine Yellow (Yellow); Glucose Urine UA Negative (Negative); Ketones Urine Negative (Negative); Leukocyte Esterase Ur Negative LEU/UL (Negative); Nitrate Urine Negative (Negative); Protein Urine Negative (Negative); Urobilinogen Urine 0.2 mg/dL (<2.0); pH Urine 5.5 (5.0-9.0)
[2022-07-12 17:47] LABS: Mucus Urine Rare /lpf; RBC Urine 0-2 /hpf (0-2); Squamous Epithelial Cell Urine Occasional /hpf (Few); WBC Urine 0-3 /hpf
[2022-07-12 17:50] LABS: Add Urine Microscopic? YES
[2022-07-12] MEDS: ALBUTEROL SULFATE NEB 2.5 MG/3 ML INH INHALATION ×2 (17:56→20:02)
[2022-07-12] MEDS: IPRATROPIUM BR 0.02% INH SOLN 0.5 MG/2.5 ML VIAL INHALATION ×2 (17:56→20:02)
--- NOTE | 2022-07-12 18:17 | ED.GENADULT ---
HPI - General Adult General Chief complaint: Weakness Stated complaint: weakness Time Seen by Provider: 07/12/22 17:02 Source: RN notes reviewed History of Present Illness HPI narrative: Patient presents emergency department from home for weakness. Patient states she began to feel ill approximately 5 days ago. States she had a cough that has been nonproductive she states that with that she has been having some mild feelings of shortness of breath as well as generalized weakness and diarrhea. States she initially started taking Robitussin for cough that helped initially but does not seem to be helping any further she states that she has several episodes of diarrhea today she denies any measured fevers but states she has been feeling hot at home she denies chills denies chest pain or vomiting. He states he does have abdominal pain described as cramping with her diarrhea Related Data Allergies Allergy/AdvReac Type Severity Reaction Status Date / Time Gadolinium-Containing Allergy Severe Chest Pain Verified 05/17/22 11:07 Contrast Medi wheat Allergy Mild runny nose Verified 05/17/22 11:07 ioversol Allergy Unknown Other Verified 05/17/22 11:07 morphine Allergy Unknown Liver Verified 05/17/22 11:07 function tests abnormal acetaminophen AdvReac Severe kidney Verified 05/17/22 11:07 stop working tramadol AdvReac Severe Other Verified 05/17/22 11:07 benzonatate AdvReac Unknown Headache Verified 05/17/22 11:07 codeine AdvReac Unknown Headache Verified 05/17/22 11:07 Review of Systems Review of Systems: Gen. reports subjective fevers denies chills ENT: Denies congestion Respiratory: Reports cough and shortness of breath CV: Denies chest pain or palpitations GI: Denies abdominal pain nausea, emesis reports diarrhea Musculoskeletal: Denies back pain or muscle pain Neuro: Reports weakness Skin: Denies rash Except as documented, all other systems reviewed and negative [facility] Past Medical History Medical History Depression Elevated alkaline phosphatase level Irregular heart beat Loss of balance Thyroid disease Surgical History Surgical History H/O: hysterectomy 1974 History of cholecystectomy 1996 History of knee replacement - 1997, 1998, 1999, 2001 History of tubal ligation 1973 Family History Family History Father Hypertension Cerebrovascular accident, Onset Age: 70 Patient's father is Mother Hypertension Family history of aortic aneurysm, Onset Age: 81 Sibling Hypertension Family history of diabetes mellitus in first degree relative Family history of coronary artery disease Family history of premature coronary heart disease Patient's brother is Family history of malignant neoplasm of brain Family history of type 2 diabetes mellitus Social History Social History Smoking status: Never smoker Second hand tobacco smoke exposure: No Alcohol intake: never Substance use type: marijuana Lack of Transportation: No Lack of Food: Never True Current Housing: I Have Housing Concerned About Future Housing: No Difficulty Paying Gas/Electric Bills: No Difficulty Paying for Meds: No Currently Unemployed: No Education: High School Diploma/GED Difficulty w/ Childcare or Family Care: No Exam Narrative: APPEARANCE: No acute distress, nontoxic, resting in bed EYES: EOMI HEENT: Normocephalic, atraumatic, OMM RESPIRATORY: No respiratory distress. Wheezing throughout the bilateral upper lung zhou with coughing only no rhonchi or rales CARDIOVASCULAR: Regular rate and rhythm without murmurs rubs or gallops. ABDOMINAL: Soft, nondistended tender to palpation diffusely throughout the abdomen no rebound or guard
[2022-07-12 18:27] LABS: Lactic Acid Reflex 0.9 mmol/L (0.7-2.0)
[2022-07-12 18:39] LABS: NT Pro B Type Natriuretic Pept 1030 pg/mL (19.9-100); Troponin I < 0.012 ng/mL (0.000-0.034)
--- NOTE | 2022-07-12 18:52 | PC.NURSE ---
Patient in CT.
[2022-07-12] MEDS: methylPREDNISolone SOD SUCC 125 MG VIAL IV PUSH (19:02)
--- NOTE | 2022-07-12 20:01 | PM.IMHP ---
H&P: HPI History of Present Illness Date/Time: 07/12/22 20:01 Chief Complaint: Cough Narrative: This is an 82-year-old female with past medical history significant for HOCM, hypothyroidism. Patient presents to the emergency room due to persistent cough for the last 3 days or so which is productive of cough feels thick green secretions, has had some chills, rigors, generalized malaise, body aches and pains, generalized weakness, shortness of breath at exertion, denies palpitations, lightheadedness, syncope or near syncope, no chest pain. Preliminary workup was significant for: Chest x-ray was reported as: FINDINGS: Mild reticular opacities with bronchial wall thickening the bilateral mid and lower lung zones. No focal airspace consolidation, pleural effusion or pneumothorax. The cardiomediastinal silhouette is normal. IMPRESSION: 1. Bronchial wall thickening and mild reticular opacities without associated airspace consolidation in the bilateral mid and lower lung zones which could represent bronchitis, reactive airway disease/asthma, mild pulmonary edema or or atypical/viral pneumonia. CT of abdomen and pelvis was reported as; IMPRESSION: 1. Small amount of fluid scattered throughout the large and small bowel consistent with diarrhea. Correlate clinically for enteritis. No other evident acute intra-abdominal/pelvic process. 2. Increase in patchy lung disease with associated chronic bronchiectasis at the bilateral lung bases consistent with acute on chronic pneumonia. 3. Cirrhosis. 4. Unchanged small fat-containing umbilical and moderate-sized fat-containing infraumbilical ventral hernias. 5. Chronic coarse calcification is at the root of mesentery without evident soft tissue component. Differential includes granulomatous disease, sclerosing mesenteritis, carcinoid tumor or treated lymphoma. 6. Mild cardiomegaly. Review of Systems Review of Systems: Cough productive of greenish sputum, chills, rigors, shortness of breath, generalized malaise, body aches and pains, muscle weakness. Constitutional: Constitutional: Reports chills, Reports fatigue, Reports fever(s), Reports lethargy, Reports malaise, Reports poor appetite and Reports weakness Eyes: Eyes: Denies change in vision ENT: Denies dysphagia, Denies vertigo, Denies dizziness and Denies odynophagia Cardiovascular: Cardiovascular: Denies chest pain, Denies syncope, Denies lightheadedness and Denies palpitations Respiratory: Respiratory: Reports change in phlegm color, Reports chest congestion, Reports cough, Reports excessive phlegm production, Reports dyspnea and Reports dyspnea on exertion Gastrointestinal: Gastrointestinal: Denies abdominal pain, Denies dyspepsia, Denies heartburn, Denies diarrhea, Denies nausea and Denies vomiting Genitourinary: Genitourinary: Denies dysuria Musculoskeletal: Musculoskeletal: Reports muscle weakness Integumentary/Breasts: Skin/Breast: Denies rash Neurologic: Denies syncope, Denies focal weakness and Denies Sensory deficit (Neuro) Psychiatric: Psychiatric: Reports no additional psychiatric complaints and Reports as per HPI Endocrine: Endocrine: Denies cold intolerance, Denies flushing, Denies heat intolerance, Denies polyphagia, Denies polydipsia and Denies palpitations Hematologic/Lymphatic: Hematologic/Lymphatic: Reports no additional hematologic/lymphatic complaints and Reports as per HPI Allergic/Immunologic: Allergic/Immunologic: Reports no additional allergic/immunologic complaints and Reports as per HPI PMFSH Past Medical History Medical History Depression Elevated alkaline phosphatase level Irregular heart beat Loss of balance Thyroid disease Surgical History Surgical History H/O: hysterectomy 1974 History of cholecystectomy 1996 History of knee replacement - 1997, 1998, 1999, 2001 History of tubal ligation
--- NOTE | 2022-07-12 23:51 | ADMGEN ---
This patient, Jenniffer Cm, was admitted to 3 [facility] Surg Room 307-01 [id number]. Patient/family oriented to hospital policies and general routines including ID bracelet, bed and alarms, visiting hours, pain management, procedures, bathroom and other care routines, personal items, smoking policy, room service/diet, and visiting hours. Information on how to activate the Rapid Response Team has been discussed. Patient/Family are encouraged to report perceived risks to care and to ask questions if they do not understand what they are told or what they should do.
[2022-07-13] VITALS (13 sets, daily range): BP systolic 125–140; BP diastolic 51–71; PULSE 65–79; RESP 18–22; TEMP 36.1–36.5; O2SAT 96–97
--- NOTE | 2022-07-13 | ECHO_ITS ---
Patient Info Name: Jenniffer Cm Age: 82 years : 1940 Gender: Female Ht: 65 in Wt: 183 lbs BSA: 1.98 m2 HR: 72 bpm BP: 140 / 68 mmHg Technical Quality: Fair Exam Date: 07/13/2022 11:15 AM Exam Location: [facility] Pulmonary Patient Status: Inpatient Admit Date: 07/12/2022 Staff Ordering Physician: Noemy Frost MD Tax Assessor: Marli Srinivasan RDCS Attending Provider: Anastasia Alaniz MD Exam Type: CA echo doppler color flow Study Info Indications R06.02 - Shortness of breath Complete two-dimensional, color flow and Doppler transthoracic echocardiogram is performed. Summary 1. Complete two-dimensional, color flow and Doppler transthoracic echocardiogram is performed. 2. Left ventricular chamber dimension is normal. 3. Ventricular septum is sigmoid shaped. No LVOT obstruction. 4. Left ventricular systolic function is normal, estimated at 65-70%. 5. There is moderately increased left ventricular wall thickness. 6. The left ventricular diastolic function is grade II diastolic dysfunction. 7. E/e' 11 is mildly elevated. 8. Left atrial chamber dimension is mildly enlarged. 9. The aortic valve is not well visualized. Cannot determine number of aortic valve leaflets. 10. There is mild aortic valve sclerosis. 11. The mitral valve has mildly calcified annulus. 12. There is mild tricuspid valve regurgitation. 13. Mild pulmonary hypertension, estimated pulmonary arterial systolic pressure is 41 mmHg. Left Ventricle E/e' 11 is mildly elevated. Ventricular septum is sigmoid shaped. No LVOT obstruction. Left ventricular chamber dimension is normal. Left ventricular systolic function is normal, estimated at 65-70%. There is moderately increased left ventricular wall thickness. The left ventricular diastolic function is grade II diastolic dysfunction. Right Ventricle Right ventricular chamber dimension is normal. Right ventricular systolic function is normal. Left Atria Left atrial chamber dimension is mildly enlarged. Right Atria Right atrial chamber dimension is normal. Aortic Valve The aortic valve is not well visualized. Cannot determine number of aortic valve leaflets. There is mild aortic valve sclerosis. There is no aortic valve stenosis. There is no aortic valve regurgitation. Pulmonic Valve There is no pulmonic regurgitation. Mitral Valve The mitral valve has mildly calcified annulus. There is no mitral valve stenosis. There is mild mitral valve regurgitation. Tricuspid Valve There is mild tricuspid valve regurgitation. Mild pulmonary hypertension, estimated pulmonary arterial systolic pressure is 41 mmHg. Pericardium/Pleural There is no pericardial effusion. Inferior Vena Cava Normal inferior vena cava with >50% collapse upon inspiration consistent with normal right atrial pressure, 5 mmHg. Aorta The aortic root size at the sinus of Valsalva is normal. Left Ventricular Outflow Tract Name Value Normal LVOT 2D LVOT Diameter 2.0 cm LVOT Doppler LVOT Peak Gradient 6 mmHg LVOT Mean Gradient 4 mmHg LVOT VTI
[2022-07-13] MEDS: traZODone HCL 50 MG TABLET 100 MG PO ×2 (02:32→20:44)
[2022-07-13] MEDS: LEVOTHYROXINE SODIUM 100 MCG TABLET 200 MCG PO (05:54)
[2022-07-13 06:50] LABS: Basophils Percent Auto 0.3 % (0.2-1.2); Hematocrit 38.4 % (37.0-47.0); Hemoglobin 12.4 g/dL (12.0-15.0); Immature Granulocyte Absolute 0.02 K/mm3 (0.00-0.031); Immature Granulocyte Percent A 0.5 % (0-0.5); Lymphocytes Absolute Auto 0.34 K/mm3 (0.9-3.2); Lymphocytes Percent Auto 9.2 % (18.3-44.2); Mean Corpuscular HGB Conc 32.3 g/dl (32-36); Mean Corpuscular Hemoglobin 30.1 pg (26-34); Mean Corpuscular Volume 93.2 fl (80-100); Mean Platelet Volume 9.5 fl (7.4-10.4); Monocytes Absolute Auto 0.2 K/mm3 (0.1-0.6); Monocytes Percent Auto 4.1 % (2.6-8.5); Neutrophils Absolute Auto 3.2 K/mm3 (1.3-6.7); Neutrophils Percent Auto 85.9 % (45.5-73.1); Platelet Count Result 188 k/mm3 (150-375); Red Blood Count 4.12 M/mm3 (4.2-5.4); Red Cell Distribution Width 13.2 % (11.5-14.5); White Blood Count 3.7 K/mm3 (4.5-10.0)
[2022-07-13 06:59] LABS: Alanine Aminotransferase 21 U/L (6-35); Albumin Level 3.6 g/dL (3.5-5.1); Alkaline Phosphatase 219 U/L (38-126); Anion Gap 6 mmol/L (8-16); Aspartate Amino Transferase 31 U/L (14-36); Bilirubin,Total 0.5 mg/dL (0.2-1.3); Blood Urea Nitrogen 21 mg/dL (7-17); Calcium 8.4 mg/dL (8.4-10.2); Carbon Dioxide 28 mmol/L (22-30); Chloride 99 mmol/L (98-107); Estimated CRCL calculation 47 ml/min; Estimated Glomerular Filt Rate 60; Glucose 157 mg/dL (65-110); Potassium 4.1 mmol/L (3.4-5.0); Sodium 133 mmol/L (137-145)
[2022-07-13] MEDS: ALBUTEROL SULFATE NEB 2.5 MG/3 ML INH INHALATION ×4 (07:40→21:15)
[2022-07-13] MEDS: IPRATROPIUM BR 0.02% INH SOLN 0.5 MG/2.5 ML VIAL INHALATION ×4 (07:40→21:15)
[2022-07-13] MEDS: ursodioL 300 MG CAPSULE PO ×2 (09:56→20:44)
[2022-07-13] MEDS: METOPROLOL SUCCINATE EXT REL 50 MG TABCR PO ×2 (09:56→20:43)
[2022-07-13] MEDS: ENOXAPARIN 40 MG/0.4 ML SYRINGE SUB-Q (10:00)
--- NOTE | 2022-07-13 13:13 | PM.IMPN ---
Progress Note: A&P Assessment and Plan (1) Diarrhea: Code(s): R19.7 - Diarrhea, unspecified Status: Acute (2) Weakness: Code(s): R53.1 - Weakness Status: Acute (3) Acute renal insufficiency: Code(s): N28.9 - Disorder of kidney and ureter, unspecified Status: Acute (4) Hypertension: Qualifiers: Hypertension type: primary hypertension Qualified Code(s): I10 - Essential (primary) hypertension Code(s): I10 - Essential (primary) hypertension Status: Acute Plan ?82-year-old female with past medical history significant for HOCM, hypothyroidism presented with cough, secretions, chills, bodyache and diarrhea. Work up s/o ?bronchitis/viral illness along with enteritis. 1)Acute Viral Illness: Causing her reps and Abdominal symptoms CXR negative for predominant consolidation D/c ceftriaxone c/w Azithromycin for 5 days Albuterol Add Mucinex Currently on RA 2)Diarrhea: Imaging s/o enteritis Await cdiff Hold off any abx for now 3)MANDY: Had mild MANDY upon presentation Resolved Avoid nephrotoxins Recheck BMP in AM Hold lasix for now BG slightly elevated in AM Obtain HBA1C in AM 4)H/o HTN C/w Metoprolol 5)DVT ppx:Hep SQ 6)code:DNR 7)PT/OT 8)Dispo:Anticipate discharge in 1-2 days if stable Time Spent With Patient Time with patient: 25 - 35 minutes Subjective Date/time seen: 07/13/22 13:13 Interval history: c/o diarrhea No SOB Feeling overall better as compared to when she came in Review of Systems Review of Systems: All systems reviewed & are unremarkable except as noted in HPI and below Constitutional: Constitutional: Reports fatigue Eyes: Eyes: Reports no additional eye complaints ENT: Reports system reviewed and no additional complaints, except as documented Cardiovascular: Cardiovascular: Reports no additional cardiovascular complaints Respiratory: Respiratory: Reports cough and Reports dyspnea on exertion Gastrointestinal: Gastrointestinal: Reports no additional gastrointestinal complaints and Reports diarrhea Musculoskeletal: Musculoskeletal: Reports no additional musculoskeletal complaints Neurologic: Reports system reviewed and no additional complaints, except as documented Exam Const: General: comfortable and no acute distress HENMT: Mouth: Yes moist mucous membranes Eyes: Sclera: sclerae normal Pupils: Equal, round and reactive pupils present Neck: Neck: supple Resp: Effort & Inspection: normal respiratory effort Auscultation: diminished lung sounds Other: coarse breath sounds B/L Cardio: Rate: regular rate Rhythm: regular rhythm GI: GI Palp: Yes Soft to palpation Auscultation: normal bowel sounds Skin: General skin exam: normal color Neuro: Speech: normal speech Extrem: General: normal to inspection Psych: Mental Status: mental status grossly normal Objective Data Vital Signs Vital Signs: Vital Signs - 24 hr 07/12/22 14:04 07/12/22 17:57 07/12/22 18:11 Temperature 98.4 F Pulse Rate 96 73 70 Respiratory Rate 16 24 H 15 Blood Pressure 126/76 Pulse Oximetry 95 Oxygen Delivery 07/12/22 18:14 07/12/22 18:17 07/12/22 18:20 Temperature 98 F Pulse Rate 72 73 Respiratory Rate 18 Blood Pressure 141/71 H Pulse Oximetry 100 97 Oxygen Delivery Room Air Room Air 07/12/22 19:30 07/12/22 19:39 07/12/22 20:04 Temperature Pulse Rate 76 73 Respiratory Rate 19 16 Blood Pressure 145/70 H Pulse Oximetry 97 96 Oxygen Delivery Room Air 07/12/22 20:12 07/12/22 21:59 07/12/22 21:34 Temperature Pulse Rate 74 82 74 Respiratory Rate 18 20 20 Blood Pressure 124/75 Pulse Oximetry 95 94 Oxygen Delivery 07/12/22 21:45 07/12/22 22:12 07/12/22 22:24 Temperature Pulse Rate 78 74 72 Respiratory Rate 23 H 21 H 24 H Blood Pressure 148/90 H Pulse Oximetry 92 95 94 Oxygen Delivery 07/12/22 22:30 07/12/22 23:00 07/13/22 05:58 Temperature
[2022-07-13 13:15] LABS: Toxigenic C. Diff NEGATIVE (NEGATIVE)
[2022-07-13] MEDS: guaiFENesin 600 MG/DEXTROMETHORPHAN 30 MG SR TAB 12 HR 1 TAB PO (20:43)
[2022-07-14] VITALS (12 sets, daily range): BP systolic 119–134; BP diastolic 63–78; PULSE 64–77; RESP 16–18; TEMP 36.2–36.5; O2SAT 97–98
--- NOTE | 2022-07-14 03:24 | PCRCNOTE ---
Window of time for administration has passed. See next scheduled administration.
[2022-07-14] MEDS: LEVOTHYROXINE SODIUM 100 MCG TABLET 200 MCG PO (05:27)
[2022-07-14 06:02] LABS: Basophils Percent Auto 0.5 % (0.2-1.2); Eosinophils Absolute Auto 0.1 K/mm3 (0-0.3); Eosinophils Percent Auto 2.1 % (0-4.4); Hematocrit 36.6 % (37.0-47.0); Hemoglobin 11.8 g/dL (12.0-15.0); Immature Granulocyte Absolute 0.03 K/mm3 (0.00-0.031); Immature Granulocyte Percent A 0.5 % (0-0.5); Lymphocytes Absolute Auto 0.74 K/mm3 (0.9-3.2); Lymphocytes Percent Auto 11.7 % (18.3-44.2); Mean Corpuscular HGB Conc 32.2 g/dl (32-36); Mean Corpuscular Hemoglobin 30.7 pg (26-34); Mean Corpuscular Volume 95.3 fl (80-100); Mean Platelet Volume 9.4 fl (7.4-10.4); Monocytes Absolute Auto 0.6 K/mm3 (0.1-0.6); Monocytes Percent Auto 10.1 % (2.6-8.5); Neutrophils Absolute Auto 4.7 K/mm3 (1.3-6.7); Neutrophils Percent Auto 75.1 % (45.5-73.1); Platelet Count Result 198 k/mm3 (150-375); Red Blood Count 3.84 M/mm3 (4.2-5.4); Red Cell Distribution Width 13.4 % (11.5-14.5); White Blood Count 6.3 K/mm3 (4.5-10.0)
[2022-07-14 06:12] LABS: Anion Gap 2 mmol/L (8-16); Blood Urea Nitrogen 25 mg/dL (7-17); Calcium 8.1 mg/dL (8.4-10.2); Carbon Dioxide 30 mmol/L (22-30); Chloride 100 mmol/L (98-107); Estimated CRCL calculation 47 ml/min; Estimated Glomerular Filt Rate 60; Glucose 97 mg/dL (65-110); Potassium 3.7 mmol/L (3.4-5.0); Sodium 132 mmol/L (137-145)
[2022-07-14 06:30] LABS: Hemoglobin A1C 5.1 % (<5.7)
[2022-07-14] MEDS: METOPROLOL SUCCINATE EXT REL 50 MG TABCR PO ×2 (07:59→20:23)
[2022-07-14] MEDS: ENOXAPARIN 40 MG/0.4 ML SYRINGE SUB-Q (07:59)
[2022-07-14] MEDS: ursodioL 300 MG CAPSULE PO ×2 (07:59→20:23)
[2022-07-14] MEDS: guaiFENesin 600 MG/DEXTROMETHORPHAN 30 MG SR TAB 12 HR 1 TAB PO ×2 (08:00→20:23)
[2022-07-14] MEDS: ALBUTEROL SULFATE NEB 2.5 MG/3 ML INH INHALATION ×3 (08:17→20:14)
[2022-07-14] MEDS: IPRATROPIUM BR 0.02% INH SOLN 0.5 MG/2.5 ML VIAL INHALATION ×3 (08:17→20:14)
[2022-07-14] MEDS: LOPERAMIDE HCL 2 MG CAPSULE PO (15:01)
--- NOTE | 2022-07-14 15:57 | PM.IMPN ---
Progress Note: A&P Assessment and Plan (1) Diarrhea: Code(s): R19.7 - Diarrhea, unspecified Status: Acute (2) Weakness: Code(s): R53.1 - Weakness Status: Acute (3) Acute renal insufficiency: Code(s): N28.9 - Disorder of kidney and ureter, unspecified Status: Acute (4) Hypertension: Qualifiers: Hypertension type: primary hypertension Qualified Code(s): I10 - Essential (primary) hypertension Code(s): I10 - Essential (primary) hypertension Status: Acute Plan ?82-year-old female with past medical history significant for HOCM, hypothyroidism presented with cough, secretions, chills, bodyache and diarrhea. Work up s/o ?bronchitis/viral illness along with enteritis. # Acute bronchitis: Causing her reps and Abdominal symptoms CXR negative for predominant consolidation D/c ceftriaxone c/w Azithromycin for 5 days Albuterol Add Mucinex Currently on RA # Diarrhea: Imaging s/o enteritis C diff negative Imodium p.r.n. # MANDY: Had mild MANDY upon presentation Resolved Avoid nephrotoxins Hold lasix for now # hyperglycemia: BG slightly elevated in AM A1c normal # H/o HTN C/w Metoprolol 07/13/2022: EF 67% grade 2 diastolic dysfunction aortic valve not visualized mild pulmonary hypertension # history of SVT ablation at [facility] in 211 # HOCM # DVT ppx: Lovenox # code:DNR # PT/OT # Dispo:Anticipate discharge in 1-2 days if stable Subjective Date/time seen: 07/14/22 15:57 Interval history: Patient continues to complain of diarrhea loose stools. Overall feeling better. C diff came back negative. Review of Systems Review of Systems: All systems reviewed & are unremarkable except as noted in HPI and below Exam Narrative: APPEARANCE:? No acute distress, nontoxic, resting in bed EYES: EOMI HEENT: Normocephalic, atraumatic, OMM RESPIRATORY: No respiratory distress.? Diminished breath sound bilateral CARDIOVASCULAR: Regular rate and rhythm without murmurs rubs or gallops. ABDOMINAL: Soft, nondistended mildly tender to palpation diffusely throughout the abdomen no rebound or guarding MUSCULOSKELETAl: Moves all extremities. No clubbing, cyanosis trace edema NEURO: Awake and alert. Following commands, speech normal, no focal deficits SKIN:: Warm, dry. No rashes lesions or abrasions PSYCHIATRIC: Normal affect/mood, Objective Data Vital Signs Vital Signs: Vital Signs - 24 hr 07/13/22 20:43 07/13/22 20:00 07/13/22 21:16 Temperature Pulse Rate 72 79 Respiratory Rate 18 Blood Pressure Pulse Oximetry Oxygen Delivery Room Air 07/13/22 21:24 07/13/22 21:26 07/13/22 22:00 Temperature 96.9 F L Pulse Rate 77 72 Respiratory Rate 18 18 Blood Pressure 125/51 L Pulse Oximetry 96 97 Oxygen Delivery Room Air 07/14/22 06:00 07/14/22 07:59 07/14/22 08:17 Temperature 97.2 F L Pulse Rate 67 68 Respiratory Rate 18 Blood Pressure 134/66 Pulse Oximetry 98 98 Oxygen Delivery Room Air 07/14/22 08:17 07/14/22 08:34 07/14/22 14:00 Temperature 97.7 F Pulse Rate 64 72 70 Respiratory Rate 18 18 16 Blood Pressure 128/63 Pulse Oximetry 98 Oxygen Delivery 07/14/22 14:11 07/14/22 14:29 Temperature Pulse Rate 68 72 Respiratory Rate 18 18 Blood Pressure Pulse Oximetry Oxygen Delivery Intake/Output Intake/Output: Intake & Output 07/11/22 07/12/22 07/13/22 07/14/22 23:59 23:59 23:59 23:59 Intake Total 300 2360 240 Output Total 200 Balance 300 2160 240 Meds/Results Medications: Active Medications Generic Name Dose Route Start Last Admin Trade Name Freq PRN Reason Stop Dose Admin Albuterol 2.5 mg 07/12/22 20:00 07/14/22 14:11 Albuterol Sulfate Neb 2.5 Mg/3 Ml Inh INHALATION 2.5 mg Q6HRT HOWIE Administration Enoxaparin Sodium 40 mg 07/13/22 09:00 07/14/22 07:59 Enoxaparin 40 Mg/0.4 Ml Syringe SUB-Q 40 mg DAILY HOWIE Administration Guaifenesin/Dextr
[2022-07-14] MEDS: traZODone HCL 50 MG TABLET 100 MG PO (20:22)
[2022-07-15] VITALS (9 sets, daily range): BP systolic 109–134; BP diastolic 59–85; PULSE 67–82; RESP 14–18; TEMP 36.3–36.4; O2SAT 95–96
[2022-07-15] MEDS: ALBUTEROL SULFATE NEB 2.5 MG/3 ML INH INHALATION ×3 (03:09→13:15)
[2022-07-15] MEDS: IPRATROPIUM BR 0.02% INH SOLN 0.5 MG/2.5 ML VIAL INHALATION ×3 (03:09→13:15)
[2022-07-15] MEDS: LEVOTHYROXINE SODIUM 100 MCG TABLET 200 MCG PO (05:29)
[2022-07-15 06:16] LABS: Basophils Percent Auto 0.3 % (0.2-1.2); Eosinophils Absolute Auto 0.3 K/mm3 (0-0.3); Eosinophils Percent Auto 4.4 % (0-4.4); Hematocrit 37.1 % (37.0-47.0); Immature Granulocyte Absolute 0.02 K/mm3 (0.00-0.031); Immature Granulocyte Percent A 0.3 % (0-0.5); Lymphocytes Absolute Auto 0.52 K/mm3 (0.9-3.2); Lymphocytes Percent Auto 8.9 % (18.3-44.2); Mean Corpuscular HGB Conc 32.3 g/dl (32-36); Mean Corpuscular Hemoglobin 31.2 pg (26-34); Mean Corpuscular Volume 96.4 fl (80-100); Mean Platelet Volume 9.3 fl (7.4-10.4); Monocytes Absolute Auto 0.6 K/mm3 (0.1-0.6); Monocytes Percent Auto 10.9 % (2.6-8.5); Neutrophils Absolute Auto 4.4 K/mm3 (1.3-6.7); Neutrophils Percent Auto 75.2 % (45.5-73.1); Platelet Count Result 198 k/mm3 (150-375); Red Blood Count 3.85 M/mm3 (4.2-5.4); Red Cell Distribution Width 13.3 % (11.5-14.5); White Blood Count 5.9 K/mm3 (4.5-10.0)
[2022-07-15 06:38] LABS: Alanine Aminotransferase 21 U/L (6-35); Albumin Level 3.2 g/dL (3.5-5.1); Alkaline Phosphatase 170 U/L (38-126); Anion Gap 4 mmol/L (8-16); Aspartate Amino Transferase 31 U/L (14-36); Bilirubin,Total 0.5 mg/dL (0.2-1.3); Blood Urea Nitrogen 18 mg/dL (7-17); Carbon Dioxide 28 mmol/L (22-30); Chloride 103 mmol/L (98-107); Estimated CRCL calculation 47 ml/min; Estimated Glomerular Filt Rate 60; Glucose 98 mg/dL (65-110); Magnesium 2.1 mg/dL (1.6-2.3); Potassium 3.7 mmol/L (3.4-5.0); Sodium 135 mmol/L (137-145)
[2022-07-15] MEDS: ENOXAPARIN 40 MG/0.4 ML SYRINGE SUB-Q (08:18)
[2022-07-15] MEDS: METOPROLOL SUCCINATE EXT REL 50 MG TABCR PO (08:18)
[2022-07-15] MEDS: guaiFENesin 600 MG/DEXTROMETHORPHAN 30 MG SR TAB 12 HR 1 TAB PO (08:19)
[2022-07-15] MEDS: ursodioL 300 MG CAPSULE PO (08:19)
--- NOTE | 2022-07-15 14:06 | PM.DS ---
DS: Admitting Diagnosis Discharge Date 07/15/2022 Admitting Diagnosis Shortness of breath DS: Discharge Diagnosis Discharge Diagnosis (1) Diarrhea: Code(s): R19.7 - Diarrhea, unspecified Status: Acute (2) Weakness: Code(s): R53.1 - Weakness Status: Acute (3) Acute renal insufficiency: Code(s): N28.9 - Disorder of kidney and ureter, unspecified Status: Acute (4) Hypertension: Qualifiers: Hypertension type: primary hypertension Qualified Code(s): I10 - Essential (primary) hypertension Code(s): I10 - Essential (primary) hypertension Status: Acute (5) Community acquired pneumonia: Code(s): J18.9 - Pneumonia, unspecified organism Status: Acute DS: Summary Hospital Course Hospital Course: 82-year-old female with past medical history significant for HOCM, hypothyroidism presented with cough, secretions, chills, bodyache and diarrhea. Work up s/o ?bronchitis/viral illness along with enteritis. # Acute bronchitis: Causing her reps and Abdominal symptoms CXR negative for predominant consolidation D/c ceftriaxone c/w Azithromycin for 5 days Albuterol Add Mucinex Currently on RA # Diarrhea: Imaging s/o enteritis C diff negative Imodium p.r.n. # MANDY: Had mild MANDY upon presentation Resolved Avoid nephrotoxins # hyperglycemia:? BG slightly elevated in AM A1c normal # H/o HTN C/w Metoprolol 07/13/2022:? EF 67% grade 2 diastolic dysfunction aortic valve not visualized mild pulmonary hypertension # history of SVT ablation at [facility] in 211 # HOCM # DVT ppx:? Lovenox # code:DNR # PT/OT # Dispo:Anticipate discharge in 1-2 days if stable Time Spent with Patient Time attestation: Total time spent providing and/or coordinating discharge services: 45 minutes Exam Narrative: APPEARANCE:? No acute distress, nontoxic, resting in bed EYES: EOMI HEENT: Normocephalic, atraumatic, OMM RESPIRATORY: No respiratory distress.? Diminished breath sound bilateral CARDIOVASCULAR: Regular rate and rhythm without murmurs rubs or gallops. ABDOMINAL: Soft, nondistended mildly tender to palpation diffusely throughout the abdomen no rebound or guarding MUSCULOSKELETAl: Moves all extremities. No clubbing, cyanosis trace edema NEURO: Awake and alert. Following commands, speech normal, no focal deficits SKIN:: Warm, dry. No rashes lesions or abrasions PSYCHIATRIC: Normal affect/mood, DS: Data Data Completed and Pending Completed studies during hospitalization: Exam Type: ? ? CA echo doppler color flow Study Info Indications ? ? R06.02 - Shortness of breath Complete two-dimensional, color flow and Doppler transthoracic echocardiogram is performed. Account #: ? ? [id number] Summary ? 1. Complete two-dimensional, color flow and Doppler transthoracic echocardiogram is performed. ? 2. Left ventricular chamber dimension is normal. ? 3. Ventricular septum is sigmoid shaped. No LVOT obstruction. ? 4. Left ventricular systolic function is normal, estimated at 65-70%. ? 5. There is moderately increased left ventricular wall thickness. ? 6. The left ventricular diastolic function is grade II diastolic dysfunction. ? 7. E/e' 11 is mildly elevated. ? 8. Left atrial chamber dimension is mildly enlarged. ? 9. The aortic valve is not well visualized. Cannot determine number of aortic valve leaflets. ? 10. There is mild aortic valve sclerosis. ? 11. The mitral valve has mildly calcified annulus. ? 12. There is mild tricuspid valve regurgitation. ? 13. Mild pulmonary hypertension, estimated pulmonary arterial systolic pressure is 41 mmHg. Left Ventricle ? E/e' 11 is mildly elevated. ? Ventricular septum is sigmoid shaped. No LVOT obstruction. ? Left ventricular chamber dimension is normal. ? Left ventricular systolic function is normal, estimated at 65-70%. ? There is moderately increased left ventricular wall thickness. ? The left ventricular diastolic fun
[2022-07-15 15:34] LABS: EDCOVIDSCREEN Negative (Negative)
[2022-07-17 16:46] LABS: Mycoplasma IgM Antibody Titer 115 U/mL (<770)
[2022-07-17 23:55] LABS: Pneumococcal Antigen Urine Not Detected (Not Detected)
[2022-07-19 15:48] LABS: Legionella pneumophila Ag Ur Not Detected (Not Detected)
== END 2022-07-15 16:15 | DRG 194 ==
LOC: ANHED 19:52 → ANH3MEDSUR 22:44
PROVIDERS: Internal Medicine; Admitting Provider Internal Medicine; Emergency Provider Emergency Medicine; PCP Physician Assistant; Visit Provider Internal Medicine
DX: J18.9 Pneumonia, unspecified organism (principal); I42.1 Obstructive hypertrophic cardiomyopathy; N17.9 Acute kidney failure, unspecified; J20.9 Acute bronchitis, unspecified; E03.9 Hypothyroidism, unspecified; I12.9 Hypertensive chronic kidney disease with stage 1 through stage 4 chronic kidney disease, or unspecified chronic kidney disease; N18.9 Chronic kidney disease, unspecified; R19.7 Diarrhea, unspecified; R73.9 Hyperglycemia, unspecified; Z66 Do not resuscitate; Z20.822 Contact with and (suspected) exposure to COVID-19; Z28.21 Immunization not carried out because of patient refusal; Z90.710 Acquired absence of both cervix and uterus; Z90.49 Acquired absence of other specified parts of digestive tract; Z96.659 Presence of unspecified artificial knee joint
CPT/HCPCS: 36415; 71045; 74176; 80048; 80053; 81001; 83036; 83605; 83735; 83880; 84484; 85025; 86738; 87040; 87426; 87449; 87493; 87636; 87899; 93005; 93306; 94640; 96365; 96372; 96375; 97161; 97165; 99285; A9270; C9803; G0378; J0456; J0696; J1650; J2930

== ENCOUNTER 2022-08-09 13:47 | Outpatient (CLI) | payer MEDICARE, SELFPAY ==
[2022-08-09 14:53] LABS: Influenza A QL RT-PCR Negative (Negative); Influenza B QL RT-PCR Negative (Negative); RSV RNA, RT-PCR Positive (Negative); SARS-CoV-2 RNA PCR Negative
== END 2022-08-09 13:48 | disposition home or self-care (01) ==
LOC: ANHLAB 13:50
PROVIDERS: PCP Physician Assistant; Visit Provider Internal Medicine
DX: J18.9 Pneumonia, unspecified organism (principal); R50.9 Fever, unspecified; Z20.822 Contact with and (suspected) exposure to COVID-19
CPT/HCPCS: 87637

== ENCOUNTER 2022-09-24 17:35 | Emergency (ER) | payer MEDICARE, SELFPAY ==
--- NOTE | ~2022-09-24 | XR_ITS ---
AP view of the pelvis and AP and lateral views of the right hip Clinical history: Pain Findings: No acute fracture or dislocation is seen. Osseous alignment is anatomic. Bilateral hip and SI joint spaces are preserved. Soft tissues are unremarkable. Impression: No significant abnormality is seen. Reviewed, dictated and finalized at [facility]. Impression: No significant abnormality is seen.
--- NOTE | ~2022-09-24 | CT_ITS ---
CT head without contrast Indication: Head trauma Technique: Serial scans were obtained through the brain without the administration of contrast. Dose reduction technique was used on this scan by utilizing automated exposure control and iterative recon struction technique. The dose-length product (DLP) was 605.33 mGy-cm. Findings: There is no evidence of intracranial hemorrhage, mass lesion, or acute infarct. The ventri cles and subarachnoid spaces are dilated, consistent with mild atrophy. Low attenuation regions are seen within the periventricular white matter bilaterally, likely representing changes from chronic mi crovascular ischemic disease. There is no evidence of edema, mass effect or midline shift. The visu alized paranasal sinuses and mastoid air cells are clear. Impression: No intracranial hemorrhage, mass, or acute infarct. Atrophy and chronic white matter changes, as above. Reviewed, dictated and finalized at location . Impression: No intracranial hemorrhage, mass, or acute infarct. Atrophy and chronic white matter changes, as above.
--- NOTE | ~2022-09-24 | XR_ITS ---
Right Knee Technique: AP, lateral, and oblique views were obtained. Clinical History: Pain COMPARISON: 03/30/2016 Findings: No fracture or dislocation is seen. Total knee arthroplasty hardware is present, similar to prior exam. No hardware convocation identified. Soft tissues are unremarkable. No joint effusion is seen. Impression: No acute abnormality. Stable knee arthroplasty hardware. Reviewed, dictated and finalized at location . Impression: No acute abnormality. Stable knee arthroplasty hardware.
--- NOTE | ~2022-09-24 | CT_ITS ---
Noncontrast CT scan of the cervical spine Technique: Multiple contiguous axial [address] images of the cervical spine were obtained and rec onstructed in 2D sagittal and coronal planes on the acquisition scanner. Dose reduction technique was used on this scan by utilizing automated exposure control, adjustment of the mA and/or kV according to patient size. Clinical History: Pain Findings: No fractures or dislocations. There is advanced degenerative disc narrowing at C3-C4 and C 4-C5, with mild degenerative disc narrowing at C5-C6. There is associated uncovertebral degenerative changes at these levels. There is advanced degenerative change at the reticulation the odontoid proce ss with the anterior arch of C1. No prevertebral soft tissue swelling. Impression: No fracture or subluxation of the cervical spine. Degenerative changes, as above. Reviewed, dictated and finalized at [facility]. Impression: No fracture or subluxation of the cervical spine. Degenerative changes, as above.
[2022-09-24 17:35] VITALS: BP 164/70; PULSE 70; RESP 22; TEMP 36.6; O2SAT 97
--- NOTE | 2022-09-24 17:36 | ECG_ITS ---
Measurements Intervals [place] Rate: 68 P: 73 [place]: 268 QRS: -45 QRSD: 118 T: 48 QT: 375 QTc: 400 Interpretive Statements SINUS RHYTHM WITH FIRST DEGREE AV BLOCK WITH OCCASIONAL SUPRAVENTRICULAR PREMATURE COMPLEXES LEFT ANTERIOR SUPERIOR HEMIBLOCK MODERATE VOLTAGE CRITERIA FOR LVH, CONSIDER NORMAL VARIANT [MEETS CRITERIA IN ONE OF: R(aVL), S(V1), R(V5), R(V5/V6)+S(V1)] ABNORMAL ECG COMPARED WITH 07/12/2022 NO DIFFERENCE Electronically Signed On 09-25-2022 7:21:45 CDT by Filipe Jackson M.D.
--- NOTE | 2022-09-24 17:54 | ED.FALL ---
HPI - Fall General Chief Complaint: Fall Stated Complaint: FALL Time Seen by Provider: 09/24/22 17:47 History of Present Illness HPI Narrative: Patient presents here after fall at her facility, she had tripped and hit the top of her head against the wall, denies any loss of consciousness, she is on Eliquis. She states that she landed on her right hip and that is what is hurting the most as well as her knee. Related Data Allergies Allergy/AdvReac Type Severity Reaction Status Date / Time Gadolinium-Containing Allergy Severe Chest Pain Verified 09/24/22 17:44 Contrast Medi ioversol Allergy Unknown Other Verified 09/24/22 17:44 morphine Allergy Unknown Liver Verified 09/24/22 17:44 function tests abnormal acetaminophen AdvReac Severe kidney Verified 09/24/22 17:44 stop working tramadol AdvReac Severe Other Verified 09/24/22 17:44 benzonatate AdvReac Unknown Headache Verified 09/24/22 17:44 codeine AdvReac Unknown Headache Verified 09/24/22 17:44 Review of Systems Review of Systems: CONST: No fever. HEENT: Minimal tenderness top of her head C/V: No chest pain RESP: No cough GI: No nausea or vomiting : No dysuria. M/S: Right hip and knee pain SKIN: No rash. NEURO: [No headache or focal numbness or weakness] PSYCH: [No depression] [facility] Past Medical History Medical History Depression Elevated alkaline phosphatase level Irregular heart beat Loss of balance Thyroid disease Surgical History Surgical History H/O: hysterectomy 1974 History of cholecystectomy 1996 History of knee replacement - 1997, 1998, 1999, 2001 History of tubal ligation 1973 Family History Family History Father Hypertension Cerebrovascular accident, Onset Age: 70 Patient's father is Mother Hypertension Family history of aortic aneurysm, Onset Age: 81 Sibling Hypertension Family history of diabetes mellitus in first degree relative Family history of coronary artery disease Family history of premature coronary heart disease Patient's brother is Family history of malignant neoplasm of brain Family history of type 2 diabetes mellitus Social History Social History Smoking status: Never smoker Second hand tobacco smoke exposure: No Alcohol intake: never Substance use: never Substance use type: marijuana Lack of Transportation: No Lack of Food: Never True Current Housing: I Have Housing Concerned About Future Housing: No Difficulty Paying Gas/Electric Bills: No Difficulty Paying for Meds: No Currently Unemployed: No Education: High School Diploma/GED Difficulty w/ Childcare or Family Care: No Spiritual care concerns: No Exam Narrative: EXAMINATION OF ORGAN SYSTEMS/BODY AREAS: Constitutional: Vital signs per nursing GENERAL:[No acute distress, non-toxic appearing.] HEAD: Normal with no signs of head trauma. EYES: EOMI, conjunctiva normal ENT: Hearing grossly intact LUNGS: Nonlabored breathing. HEART: [Regular rate and rhythm] ABD: [Soft], [nontender to palpation] EXT: Normal range of motion, some tenderness palpation bilateral knees and right hip SKIN: [No rashes or lesions.] NEURO: [Alert and oriented x 3. No gross focal sensory or strength deficits.] PSYCH: Normal affect Course Vital Signs Vital signs: Vital Signs Temperature 97.8 F 09/24/22 17:35 Pulse Rate 70 09/24/22 17:35 Respiratory Rate 22 H 09/24/22 17:35 Blood Pressure 164/70 H 09/24/22 17:35 Pulse Oximetry 97 09/24/22 17:35 Oxygen Delivery Room Air 09/24/22 17:35 Temperature 97.8 F 09/24/22 17:35 Pulse Rate 71 09/24/22 18:35 Respiratory Rate 20 09/24/22 18:35 Blood Pressure 158/67 H 09/24/22 18:35 Pulse Oximetry
[2022-09-24 18:35] VITALS: BP 158/67; PULSE 71; RESP 20; O2SAT 98
[2022-09-24 19:05] VITALS: BP 158/71; PULSE 71; RESP 12; O2SAT 98
[2022-09-24 19:45] VITALS: BP 152/72; PULSE 72; RESP 18; O2SAT 96
== END 2022-09-24 19:50 | disposition home or self-care (01) ==
PROVIDERS: Emergency Provider Emergency Medicine; PCP Physician Assistant
DX: S09.90XA Unspecified injury of head, initial encounter (principal); S79.911A Unspecified injury of right hip, initial encounter; S89.91XA Unspecified injury of right lower leg, initial encounter; Z79.01 Long term (current) use of anticoagulants; E07.9 Disorder of thyroid, unspecified; Z96.659 Presence of unspecified artificial knee joint; Z90.49 Acquired absence of other specified parts of digestive tract; Z90.710 Acquired absence of both cervix and uterus; I44.0 Atrioventricular block, first degree; I44.4 Left anterior fascicular block; R94.31 Abnormal electrocardiogram [ECG] [EKG]; W01.198A Fall on same level from slipping, tripping and stumbling with subsequent striking against other object, initial encounter
CPT/HCPCS: 70450; 72125; 73502; 73562; 93005; 99284

== ENCOUNTER → 2022-10-07 16:09 | Outpatient (CLI) | payer MEDICARE, SELFPAY ==
--- NOTE | ~2022-10-07 | XR_ITS ---
EXAMINATION: XR chest 2V Exam Date/Time: 10/07/2022 16:14 CDT HISTORY: R05.9 - Cough, unspecified Comparison: 07/12/2022 04/12/2022. RESULT: Lines, tubes, and devices: None. Lungs and pleura: Diffuse reticular opacities, slightly increased since the prior study. Calcified g ranulomas. No focal consolidation, pneumothorax, or large effusion. Cardiomediastinal silhouette: Stable. Other: No acute osseous or upper abdominal finding. IMPRESSION: Mild interstitial edema versus respiratory bronchiolitis. Reviewed, dictated and finalized at location [facility].
== END ==
PROVIDERS: PCP Physician Assistant; Visit Provider Physician Assistant
DX: R05.9 Cough, unspecified (principal); R91.8 Other nonspecific abnormal finding of lung field
CPT/HCPCS: 71046

== ENCOUNTER 2022-11-12 11:43 | Emergency (ER) | payer MEDICARE, SELFPAY ==
[2022-11-12] VITALS (12 sets, daily range): BP systolic 166–186; BP diastolic 67–88; PULSE 61–91; RESP 12–26; TEMP 36.8; O2SAT 94–100
--- NOTE | ~2022-11-12 | CT_ITS ---
EXAMINATION: CT brain wo con DATE: 11/12/2022 16:24 INDICATION: Dizziness TECHNIQUE: Computed tomography (CT) of the head was performed without intravenous contrast. The mA wa s adjusted according to patient size. Iterative reconstruction technique was employed. Exam dose: 60 5.33 mGy-cm total exam DLP. COMPARISON: September 24, 2022 CT brain FINDINGS: Right vertebral artery and more prominent dominant left vertebral artery calcification and prominent bilateral carotid siphon and supraclinoid internal carotid artery calcifications are noted. There is nonspecific diminished attenuation of the cerebral white matter, likely due to chronic smal l vessel ischemic changes. No intracranial mass lesion or hemorrhage or cerebrovascular accident is noted. No midline shift or m ass effect. There is moderate central and cortical cerebral and cerebellar volume loss consistent with patient ag e. No subdural or epidural hematoma is detected. The mastoid air cells and included paranasal sinuses are normally developed and aerated. No fracture or bone destruction of the cranial vault. 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 Reviewed, dictated and finalized at location [] IMPRESSION: Pseudoarthrosis and chronic small vessel ischemic changes of cereb ral white matter No acute intracranial finding or significant change since 09/24/2022
--- NOTE | ~2022-11-12 | XR_ITS ---
XR chest 2V DATE: 11/12/2022 13:27 INDICATION: Shortness of breath. Feeling of irregular heartbeat. TECHNIQUE: PA and lateral views COMPARISON: 10/2022 2 view chest FINDINGS: Cardiomegaly. Aortic calcification, ectasia and tortuosity. No hilar or mediastinal enlarge ment. No pulmonary infiltrate or consolidation or pulmonary vascular congestion or pneumothorax is evident. Chronic slight blunting of the costophrenic angles, stable since 10/2022. Osteopenia. Dextroscoliosis of the thoracic spine. Surgical clips, right upper quadrant, likely due to cholecystectomy. IMPRESSION: Cardiomegaly, aortic atherosclerosis Reviewed, dictated and finalized at location []
--- NOTE | 2022-11-12 11:58 | ECG_ITS ---
Measurements Intervals [place] Rate: 62 P: [place]: 0 QRS: -44 QRSD: 126 T: -9 QT: 430 QTc: 437 Interpretive Statements SINUS RHYTHM WITH FIRST-DEGREE AV BLOCK AND SINUS ARRHYTHMIA MARKED LEFT AXIS DEVIATION [QRS AXIS < -30] MODERATE INTRAVENTRICULAR CONDUCTION DELAY [110+ ms QRS DURATION] VOLTAGE CRITERIA FOR LVH [MEETS CRITERIA IN ONE OF: R(aVL), S(V1), R(V5), R(V5/V6)+S(V1)] COMPARED TO ECG 09/24/2022 17:42:07 NO SIGNIFICANT DIFFERENCE Electronically Signed On 11-12-2022 12:55:43 CDT by Filipe Jackson M.D.
--- NOTE | 2022-11-12 12:16 | ED.SOB ---
HPI - SOB/Dyspnea General Chief Complaint: Shortness of Breath/Dyspnea Stated Complaint: weakness, dyspnea Time Seen by Provider: 11/12/22 12:15 Source: patient, family and EMS Limitations: no limitations History of Present Illness HPI Narrative: PATIENT IS 82 YEARS OLD WHITE FEMALE PRESENTS TO THE ED WITH FOR INTERMITTENT FLUTTERING FEELING WHICH BEEN GOING FOR 2 WEEKS ABOUT THE SWELLING WAS WORST, ASSOCIATED WITH SHAKING, WEAKNESS AND NAUSEA. CURRENTLY PATIENT DOES NOT FEEL WELL, AND STILL FEEL WEAK. HISTORY OF ANXIETY AND DEPRESSION. CONSTIPATION ON ALLERGY MEDICATION. PATIENT DENIES ANY CHEST PAIN OR SHORTNESS OF BREATH. Related Data Allergies Allergy/AdvReac Type Severity Reaction Status Date / Time Gadolinium-Containing Allergy Severe Chest Pain Verified 11/12/22 11:50 Contrast Medi ioversol Allergy Unknown Other Verified 11/12/22 11:50 morphine Allergy Unknown Liver Verified 11/12/22 11:50 function tests abnormal acetaminophen AdvReac Severe kidney Verified 11/12/22 11:50 stop working tramadol AdvReac Severe Other Verified 11/12/22 11:50 benzonatate AdvReac Unknown Headache Verified 11/12/22 11:50 codeine AdvReac Unknown Headache Verified 11/12/22 11:50 Review of Systems Review of Systems: All systems reviewed & are unremarkable except as noted in HPI and below PMFSH Past Medical History Medical History Depression Elevated alkaline phosphatase level Irregular heart beat Loss of balance Thyroid disease Surgical History Surgical History H/O: hysterectomy 1974 History of cholecystectomy 1996 History of knee replacement - 1997, 1998, 1999, 2001 History of tubal ligation 1973 Family History Family History Father Hypertension Cerebrovascular accident, Onset Age: 70 Patient's father is Mother Hypertension Family history of aortic aneurysm, Onset Age: 81 Sibling Hypertension Family history of diabetes mellitus in first degree relative Family history of coronary artery disease Family history of premature coronary heart disease Patient's brother is Family history of malignant neoplasm of brain Family history of type 2 diabetes mellitus Social History Social History Social History: Caffeine-daily Smoking status: Never smoker Second hand tobacco smoke exposure: No Alcohol intake: never Substance use: never Substance use type: marijuana Lack of Transportation: No Lack of Food: Never True Current Housing: I Have Housing Concerned About Future Housing: No Difficulty Paying Gas/Electric Bills: No Difficulty Paying for Meds: No Currently Unemployed: No Education: High School Diploma/GED Difficulty w/ Childcare or Family Care: No Spiritual care concerns: No Exam Narrative: GENERAL APPEARANCE: WELL-DEVELOPED, WELL-NOURISHED, LOOKS ANXIOUS SKIN: NORMAL COLOR HEAD: NORMOCEPHALIC, NONTRAUMATIC EYES: CLEAR CONJUNCTIVA ENT: OROPHARYNX NORMAL, EARS NORMAL, NOSE NORMAL NECK: SUPPLE, NONTENDER CHEST AND RESPIRATORY: AIRWAY PATENT, NO RESPIRATORY DISTRESS, NO ACCESSORY MUSCLE USE HEART: REGULAR RATE/RHYTHM ABDOMEN: SOFT, NONTENDER, NO ORGANOMEGALY, QUIET BOWEL SOUNDS VASCULAR: NORMAL PERIPHERAL PULSES, NORMAL CAPILLARY REFILL. MUSCULOSKELETAL: NORMAL RANGE OF MOTION, NONTENDER BACK NEUROLOGIC: ALERT AND ORIENTED ?3, MATHEMATICIAN RESEARCH IS NORMAL TESTED, NO GROSS MOTOR DEFICIT Course Reevaluation(s) Reevaluation #1:
[2022-11-12 12:35] LABS: Basophils Percent Auto 0.7 % (0.2-1.2); Eosinophils Absolute Auto 0.3 K/mm3 (0-0.3); Eosinophils Percent Auto 4.6 % (0-4.4); Hematocrit 40.2 % (37.0-47.0); Hemoglobin 12.9 g/dL (12.0-15.0); Immature Granulocyte Absolute 0.01 K/mm3 (0.00-0.031); Immature Granulocyte Percent A 0.2 % (0-0.5); Lymphocytes Absolute Auto 0.43 K/mm3 (0.9-3.2); Lymphocytes Percent Auto 7.7 % (18.3-44.2); Mean Corpuscular HGB Conc 32.1 g/dl (32-36); Mean Corpuscular Hemoglobin 30.1 pg (26-34); Mean Corpuscular Volume 93.9 fl (80-100); Mean Platelet Volume 9.2 fl (7.4-10.4); Monocytes Absolute Auto 0.7 K/mm3 (0.1-0.6); Monocytes Percent Auto 12.5 % (2.6-8.5); Neutrophils Absolute Auto 4.2 K/mm3 (1.3-6.7); Neutrophils Percent Auto 74.3 % (45.5-73.1); Platelet Count Result 241 k/mm3 (150-375); Red Blood Count 4.28 M/mm3 (4.2-5.4); Red Cell Distribution Width 14.6 % (11.5-14.5); White Blood Count 5.6 K/mm3 (4.5-10.0)
--- NOTE | 2022-11-12 12:45 | PCRCNOTE ---
ATTEMPTED ABG X 2. UNABLE TO OBTAIN; PT. REFUSES TO BE STUCK AGAIN. DR. HARPER NOTIFIED OF THE REFUSAL.
[2022-11-12 13:10] LABS: Alanine Aminotransferase 25 U/L (6-35); Albumin Level 3.7 g/dL (3.5-5.1); Alkaline Phosphatase 236 U/L (38-126); Anion Gap 3 mmol/L (8-16); Aspartate Amino Transferase 38 U/L (14-36); Bilirubin,Total 0.5 mg/dL (0.2-1.3); Blood Urea Nitrogen 19 mg/dL (7-17); Calcium 8.6 mg/dL (8.4-10.2); Carbon Dioxide 31 mmol/L (22-30); Chloride 105 mmol/L (98-107); Estimated CRCL calculation 47 ml/min; Estimated Glomerular Filt Rate 60; Glucose 100 mg/dL (65-110); Potassium 4.2 mmol/L (3.4-5.0); Sodium 139 mmol/L (137-145)
--- NOTE | 2022-11-12 13:13 | PC.NURSE ---
called lab at this time to add on BNP and troponin
[2022-11-12 13:47] LABS: Prothrombin Time 13.1 Seconds (11.1-14.7)
[2022-11-12 13:48] LABS: Partial Thromboplastin Time 28.5 SECONDS (22.3-36.8)
[2022-11-12 13:52] LABS: D Dimer 0.65 ug/mL (<0.48)
[2022-11-12 13:56] LABS: NT Pro B Type Natriuretic Pept 1000 pg/mL (19.9-100); Troponin I < 0.012 ng/mL (0.000-0.034)
[2022-11-12 15:24] LABS: Appearance Urine Clear (Clear); Bilirubin Urine Negative (Negative); Blood Urine Negative (Negative); Color Urine Yellow (Yellow); Glucose Urine UA Negative (Negative); Ketones Urine Negative (Negative); Leukocyte Esterase Ur Negative LEU/UL (Negative); Nitrate Urine Negative (Negative); Protein Urine Negative (Negative); Specific Grav Ur 1.005 (1.001-1.035); Urobilinogen Urine 0.2 mg/dL (<2.0); pH Urine 5.5 (5.0-9.0)
[2022-11-12 15:29] LABS: Add Urine Microscopic? NO
[2022-11-12 15:59] LABS: Troponin I < 0.012 ng/mL (0.000-0.034)
== END 2022-11-12 17:24 ==
PROVIDERS: Emergency Medicine; Emergency Provider Emergency Medicine; PCP Physician Assistant
DX: R00.2 Palpitations (principal); R53.1 Weakness; F32.A Depression, unspecified
CPT/HCPCS: 36415; 36600; 70450; 71046; 80053; 81003; 83880; 84484; 85025; 85380; 85610; 85730; 93005; 99284

== ENCOUNTER 2023-02-20 13:46 | Emergency (ER) | payer MEDICARE, SELFPAY ==
--- NOTE | ~2023-02-20 | XR_ITS ---
XR chest 2V DATE: 02/20/2023 14:08 INDICATION: Shortness of breath and cough. TECHNIQUE: 2 views COMPARISON: 11/12/2022 PA and lateral chest FINDINGS: Cardiomegaly. Aortic calcification, ectasia and tortuosity. No pulmonary infiltrate or consolidation, pleural effusion or pulmonary vascular congestion or pneumo thorax is detected. Diffuse osteopenia. Kyphodextroscoliosis of the thoracic spine. Status post cholecystectomy. IMPRESSION: Cardiomegaly, aortic atherosclerosis No active pulmonary disease Reviewed, dictated and finalized at location [facility].
[2023-02-20 13:52] VITALS: BP 150/85; PULSE 95; RESP 14; TEMP 37; O2SAT 99
--- NOTE | 2023-02-20 14:11 | ED.URI ---
HPI - URI/Sore Throat General Chief Complaint: Upper Respiratory Infection Stated Complaint: Cough/Runny Nose/Shortness of Breath History of Present Illness HPI Narrative: patient presents with cough productive at times and feeling as if she may have pneumonia once again. no shortness of breath and no chest pain . patient is taking Robitussin for cough. Related Data Home Medications Medication Instructions Recorded Confirmed ursodiol 500 mg tablet 500 mg PO BID 02/20/23 02/20/23 vilazodone 20 mg tablet 20 mg PO DAILY 02/20/23 02/20/23 Allergies Allergy/AdvReac Type Severity Reaction Status Date / Time Gadolinium-Containing Allergy Severe Chest Pain Verified 02/20/23 14:03 Contrast Medi ioversol Allergy Unknown Other Verified 02/20/23 14:03 morphine Allergy Unknown Liver Verified 02/20/23 14:03 function tests abnormal acetaminophen AdvReac Severe kidney Verified 02/20/23 14:03 stop working tramadol AdvReac Severe Other Verified 02/20/23 14:03 benzonatate AdvReac Unknown Headache Verified 02/20/23 14:03 codeine AdvReac Unknown Headache Verified 02/20/23 14:03 Review of Systems Review of Systems: CONSTITUTIONAL: Denies fever, chills, or sweats. EYES: Denies visual changes, redness, or discharge. ENT: Denies rhinorrhea, congestion, sore throat, or otalgia. CARDIOVASCULAR: Denies chest pain, palpitations, or edema. RESPIRATORY: Denies cough or dyspnea. GASTROINTESTINAL: Denies abdominal pain, nausea, vomiting, or diarrhea. GENITOURINARY: Denies dysuria or hematuria. SKIN: Denies rash or itching. MUSCULOSKELETAL: Denies back pain, joint pain, or myalgia. NEUROLOGIC: Denies headache, numbness, or weakness. PSYCHIATRIC: Denies anxiety or depression. [facility] Past Medical History Medical History Depression Elevated alkaline phosphatase level Irregular heart beat Loss of balance Thyroid disease Surgical History Surgical History H/O: hysterectomy 1974 History of cholecystectomy 1996 History of knee replacement - 1997, 1998, 1999, 2001 History of tubal ligation 1973 Family History Family History Father Hypertension Cerebrovascular accident, Onset Age: 70 Patient's father is Mother Hypertension Family history of aortic aneurysm, Onset Age: 81 Sibling Hypertension Family history of diabetes mellitus in first degree relative Family history of coronary artery disease Family history of premature coronary heart disease Patient's brother is Family history of malignant neoplasm of brain Family history of type 2 diabetes mellitus Social History Social History Social History: Caffeine-daily Smoking status: Never smoker Second hand tobacco smoke exposure: No Alcohol intake: never Substance use: current Other substance usage details: CBD oil Lack of Transportation: No Lack of Food: Never True Current Housing: I Have Housing Concerned About Future Housing: No Difficulty Paying Gas/Electric Bills: No Difficulty Paying for Meds: No Currently Unemployed: No Education: High School Diploma/GED Difficulty w/ Childcare or Family Care: No Spiritual care concerns: No Comments At time of signature, agree with nursing past medical, surgical, social and family history. There is no relevant family history pertinent to the presenting complaint Exam Narrative: GENERAL: Well-appearing, well-nourished, and in no acute distress. HEAD: Normocephalic, atraumatic. EYES: PERRLA and EOMI. ENT: Nares clear, no rhinorrhea or epistaxis. Mucous membranes moist. NECK: Supple. CHEST: Clear to auscultation. No respiratory distress. HEART: Regular rate and rhythm. No murmur heard. Norm
== END 2023-02-20 14:23 | disposition home or self-care (01) ==
PROVIDERS: Emergency Provider Nurse Practitioner Family; PCP Physician Assistant
DX: J06.9 Acute upper respiratory infection, unspecified (principal); J40 Bronchitis, not specified as acute or chronic; H10.32 Unspecified acute conjunctivitis, left eye; F32.A Depression, unspecified; E03.9 Hypothyroidism, unspecified
CPT/HCPCS: 71046; 99213; G0463

== ENCOUNTER → 2023-08-05 13:55 | Outpatient (CLI) | payer MEDICARE, SELFPAY ==
--- NOTE | ~2023-08-05 | MR_ITS ---
EXAMINATION: MR hip RT wo con DATE: 08/05/2023 15:10 INDICATION: Right hip pain TECHNIQUE: Magnetic resonance imaging (MRI) of the right hip was performed without intravenous contr ast. Sequences included full-field axial PD-weighted FS FSE and T1-weighted FSE, coronal of the pelvi s with PD-weighted FS FSE, T2-weighted FS FSE and T1-weighted FSE, small field of view of the right hip with axial PD-weighted FS FSE, sagittal PD-weighted FS FSE, coronal T2-weighted FS FSE and mack l PD weighted FS FSE. Additional radial T1-weighted FGR oriented orthogonal to the acetabular rim wer e obtained for evaluation of the labrum. COMPARISON: None FINDINGS: Bones/labrum/cartilage: Mild lumbar levoscoliosis with severe spondylosis. Alignment is otherwise normal. No fracture, avascular necrosis or pathologic marrow replacing process. Mild osteoarthritis at the ri ght hip with partial thickness cartilage loss resulting in mild nonuniform joint space narrowing at t he posterior and anterosuperior aspect of the joint space. Diffuse degenerative tearing of the [place] superior to the posterior right acetabular labrum. Fluid: Symmetric physiologic amount of fluid within both hip joints. Soft tissues: Symmetric likely age-related fatty atrophy of the musculature of the lower abdomen, pelvis and proxim al thighs. The bilateral iliopsoas, gluteal and proximal hamstring tendons are normal. Several divert icula along the sigmoid colon without adjacent inflammation presenting to suggest diverticular coliti s. The uterus is not identified and has likely been surgically resected. Bladder is normal. Small fat -containing umbilical hernia measuring 4.0 x 3.3 x 2.8 cm and larger 7.0 x 6.2 x 4.5 cm fat-containin g infraumbilical ventral hernia. No pathologically enlarged pelvic/inguinal lymphadenopathy. IMPRESSION: 1. Mild right hip osteoarthritis with diffuse labral degeneration. No acute osseous abnormality. 2. Fat-containing umbilical and infraumbilical ventral hernias. 3. Diverticulosis. Reviewed, dictated and finalized at location [facility]. [facility] IMPRESSION: 1. Mild right hip osteoarthritis with diffuse labral degeneration. No acute oss eous abnormality. 2. Fat-containing umbilical and infraumbilical ventral hernias. 3. Diverticulosis.
== END ==
PROVIDERS: PCP Physician Assistant; Visit Provider Physician Assistant
DX: M25.551 Pain in right hip (principal); M16.11 Unilateral primary osteoarthritis, right hip; K42.9 Umbilical hernia without obstruction or gangrene; K57.90 Diverticulosis of intestine, part unspecified, without perforation or abscess without bleeding
CPT/HCPCS: 73721

== ENCOUNTER 2023-08-14 16:14 | Emergency (ER) | payer MEDICARE, SELFPAY ==
[2023-08-14 16:22] VITALS: BP 148/80; PULSE 77; RESP 20; TEMP 36.8; O2SAT 96
[2023-08-14 16:32] VITALS: BP 148/80; PULSE 77; RESP 20; TEMP 36.8; O2SAT 96
--- NOTE | 2023-08-14 16:36 | ED.GENADULT ---
HPI - General Adult General Chief complaint: Upper Respiratory Infection Stated complaint: sinus infection/thrush/uti Time Seen by Provider: 08/14/23 16:36 Source: patient, RN notes reviewed and old records reviewed Mode of arrival: ambulatory Limitations: no limitations History of Present Illness HPI narrative: 83 year old female who presents to [facility] care with complaints of increased sinus congestion and drainage noted today, 2 day history of mouth sores is concerned for thrush. 2 day history of urinary frequency urgency and incontinency with perineal pressure,. Patient reports that she was diagnosed with COVID on 08/08/2023 and she completed Paxlovid and reports COVID symptoms resolved. Patient reports no fevers, chills or sweats, denies any nausea or vomiting. MD complaint: urinary tract infection, mouth sores sinus congestion and drainage. Onset (ago): day(s) (2) Severity: mild Quality: aching Treatments prior to arrival: none Related Data Home Medications Medication Instructions Recorded Confirmed vilazodone 20 mg tablet 20 mg PO DAILY 02/20/23 08/14/23 Allergies Allergy/AdvReac Type Severity Reaction Status Date / Time Gadolinium-Containing Allergy Severe Chest Pain Verified 08/14/23 16:25 Contrast Medi ioversol Allergy Unknown Other Verified 08/14/23 16:25 morphine Allergy Unknown Liver Verified 08/14/23 16:25 function tests abnormal acetaminophen AdvReac Severe kidney Verified 08/14/23 16:25 stop working tramadol AdvReac Severe Other Verified 08/14/23 16:25 benzonatate AdvReac Unknown Headache Verified 08/14/23 16:25 codeine AdvReac Unknown Headache Verified 08/14/23 16:25 Review of Systems Review of Systems: CONSTITUTIONAL: Denies fever, chills, or sweats. EYES: Denies visual changes, redness, or discharge. ENT: reports rhinorrhea, congestion, no sore throat, no otalgia.reports red sores roof of mouth CARDIOVASCULAR: Denies chest pain, palpitations, or edema. RESPIRATORY: Reports cough no dyspnea. GASTROINTESTINAL: Denies abdominal pain, nausea, vomiting, or diarrhea. GENITOURINARY:Reports perineal dysuria urgency frequency with urination, incontency,no visible hematuria, no CVA tnderness SKIN: Denies rash or itching. MUSCULOSKELETAL: Denies back pain, joint pain, or myalgia. NEUROLOGIC: Denies headache, numbness, or weakness. PSYCHIATRIC: Denies anxiety or depression. All systems reviewed & are unremarkable except as noted in HPI and below PMFSH Past Medical History Medical History (Updated 08/15/23 @ 15:48 by Galilea Jaffe NP) Depression Elevated alkaline phosphatase level Irregular heart beat Loss of balance Primary biliary cirrhosis Thyroid disease Surgical History Surgical History H/O: hysterectomy 1973 History of cholecystectomy 1996 History of knee replacement - 1997, 1998, 1999, 2001 History of tubal ligation 1973 Family History Family History Father Hypertension Cerebrovascular accident, Onset Age: 70 Patient's father is Mother Hypertension Family history of aortic aneurysm, Onset Age: 81 Sibling Hypertension Family history of diabetes mellitus in first degree relative Family history of coronary artery disease Family history of premature coronary heart disease Patient's brother is Family history of malignant neoplasm of brain Family history of type 2 diabetes mellitus Social History Social History Social History: Caffeine-daily Smoking status: Never smoker Second hand tobacco smoke exposure: No Alcohol intake: never Substance use: current Other substance usage details: CBD oil Lack of Transportation: No Lack of Food: Never True Current Housing: I Have Housing Concerned About Future Housing: No Di
== END 2023-08-14 17:05 | disposition home or self-care (01) ==
PROVIDERS: Emergency Provider Registered Nurse; PCP Physician Assistant
DX: J06.9 Acute upper respiratory infection, unspecified (principal); K13.79 Other lesions of oral mucosa; N39.0 Urinary tract infection, site not specified; B96.20 Unspecified Escherichia coli [E. coli] as the cause of diseases classified elsewhere; F32.A Depression, unspecified; K74.3 Primary biliary cirrhosis; E07.9 Disorder of thyroid, unspecified
CPT/HCPCS: 81003; 87077; 87086; 87088; 87186; 99213; G0463

== ENCOUNTER 2023-10-14 13:18 | Outpatient (CLI) | payer MEDICARE, SELFPAY ==
--- NOTE | ~2023-10-14 | XR_ITS ---
Clinical Indication: Shortness of breath PA and lateral views of the chest: Comparison: 02/20/2023 Findings: The lungs are clear, without evidence of focal consolidation or pleural effusion. Cardiome diastinal silhouette is stable. Bones and soft tissues are unremarkable. Impression: Clear lungs. Reviewed, dictated and finalized at location . Impression: Clear lungs.
[2023-10-14 14:00] LABS: Basophils Percent Auto 0.5 % (0.2-1.2); Eosinophils Absolute Auto 0.2 K/mm3 (0-0.3); Eosinophils Percent Auto 3.1 % (0-4.4); Hematocrit 39.9 % (37.0-47.0); Hemoglobin 12.7 g/dL (12.0-15.0); Immature Granulocyte Absolute 0.04 K/mm3 (0.00-0.031); Immature Granulocyte Percent A 0.5 % (0-0.5); Lymphocytes Absolute Auto 0.43 K/mm3 (0.9-3.2); Lymphocytes Percent Auto 5.8 % (18.3-44.2); Mean Corpuscular HGB Conc 31.8 g/dl (32-36); Mean Corpuscular Hemoglobin 30.8 pg (26-34); Mean Corpuscular Volume 96.6 fl (80-100); Mean Platelet Volume 9.5 fl (7.4-10.4); Monocytes Absolute Auto 0.8 K/mm3 (0.1-0.6); Monocytes Percent Auto 10.9 % (2.6-8.5); Neutrophils Absolute Auto 5.9 K/mm3 (1.3-6.7); Neutrophils Percent Auto 79.2 % (45.5-73.1); Platelet Count Result 266 k/mm3 (150-375); Red Blood Count 4.13 M/mm3 (4.2-5.4); Red Cell Distribution Width 13.9 % (11.5-14.5); White Blood Count 7.4 K/mm3 (4.5-10.0)
[2023-10-14 14:04] LABS: Alanine Aminotransferase 18 U/L (6-35); Albumin Level 3.6 g/dL (3.5-5.1); Alkaline Phosphatase 206 U/L (38-126); Anion Gap 2 mmol/L (4-12); Aspartate Amino Transferase 31 U/L (14-36); Bilirubin,Total 0.5 mg/dL (0.2-1.3); Blood Urea Nitrogen 20 mg/dL (7-17); Calcium 8.6 mg/dL (8.4-10.2); Carbon Dioxide 30 mmol/L (22-30); Chloride 104 mmol/L (98-107); Estimated Glomerular Filt Rate 60; Glucose 113 mg/dL (65-110); Potassium 3.9 mmol/L (3.4-5.0); Sodium 136 mmol/L (137-145)
[2023-10-14 14:14] LABS: NT Pro B Type Natriuretic Pept 729 pg/mL (19.9-100)
== END 2023-10-14 13:19 | disposition home or self-care (01) ==
LOC: ANHLAB 13:24
PROVIDERS: PCP Physician Assistant; Visit Provider Internal Medicine
DX: R06.09 Other forms of dyspnea (principal)
CPT/HCPCS: 36415; 71046; 80053; 83880; 84443; 85025

== ENCOUNTER 2023-10-19 13:03 | Emergency (ER) | payer MEDICARE, SELFPAY ==
[2023-10-19 13:15] VITALS: BP 152/69; PULSE 79; RESP 20; TEMP 37.4; O2SAT 96
--- NOTE | 2023-10-19 13:31 | ED.GENADULT ---
HPI - General Adult General Chief complaint: Weakness Stated complaint: Fatigue Time Seen by Provider: 10/19/23 13:31 Source: patient Mode of arrival: ambulatory Limitations: no limitations History of Present Illness HPI narrative: 83-year-old female presented for complaint of weakness and fatigue x3 weeks. States she has felt similar symptoms since August when she had covid, but the past few weeks the fatigue is worse. She uses cane/walker to get to the cafeteria at her assisted living facility, which is not unusual. patient was seen by her PCP on 10/13, however she did not discuss this complaint. She was told her lab work and CXR were normal, has a pending CHRIS on 10/26. Patient endorses chronic intermittent palpitations, she denies shortness of breath, wheezing, nausea, vomiting, decreased appetite, swelling, dizziness or fever. hx Sjogren's syndrome, CHF, paroxysmal afib Related Data Home Medications Medication Instructions Recorded Confirmed vilazodone 20 mg tablet 20 mg PO DAILY 02/20/23 10/19/23 ursodiol 500 mg tablet 500 mg PO BID 10/19/23 10/19/23 Allergies Allergy/AdvReac Type Severity Reaction Status Date / Time Gadolinium-Containing Allergy Severe Chest Pain Verified 10/19/23 13:11 Contrast Medi adhesive tape Allergy Mild Rash Verified 10/19/23 13:27 ioversol Allergy Unknown Other Verified 10/19/23 13:11 morphine Allergy Unknown Liver Verified 10/19/23 13:11 function tests abnormal acetaminophen AdvReac Severe kidney Verified 10/19/23 13:11 stop working tramadol AdvReac Severe Other Verified 10/19/23 13:11 benzonatate AdvReac Unknown Headache Verified 10/19/23 13:11 codeine AdvReac Unknown Headache Verified 10/19/23 13:11 Review of Systems Review of Systems: CONSTITUTIONAL: Reports fatigue/weakness Denies body aches, fever, chills, or sweats. EYES: Denies visual changes, redness, or discharge. ENT: Denies rhinorrhea, congestion, sore throat, or otalgia. CARDIOVASCULAR: Denies chest pain, palpitations, or edema. RESPIRATORY: Denies cough or increased dyspnea. GASTROINTESTINAL: Denies abdominal pain, nausea, vomiting, or diarrhea. GENITOURINARY: Denies dysuria or hematuria. SKIN: Denies rash, itching, or wounds. MUSCULOSKELETAL: Denies new back pain, reports chronic joint pain NEUROLOGIC: Denies headache, numbness, tingling, or weakness. All systems reviewed & are unremarkable except as noted in HPI and below PMFSH Past Medical History Medical History Depression Elevated alkaline phosphatase level Irregular heart beat Loss of balance Primary biliary cirrhosis Thyroid disease Surgical History Surgical History H/O: hysterectomy 1974 History of cholecystectomy 1996 History of knee replacement - 1997, 1998, 1999, 2001 History of tubal ligation 1973 Family History Family History Father Hypertension Cerebrovascular accident, Onset Age: 70 Patient's father is Mother Hypertension Family history of aortic aneurysm, Onset Age: 81 Sibling Hypertension Family history of diabetes mellitus in first degree relative Family history of coronary artery disease Family history of premature coronary heart disease Patient's brother is Family history of malignant neoplasm of brain Family history of type 2 diabetes mellitus Social History Social History Social History: Caffeine-daily Smoking status: Never smoker Second hand tobacco smoke exposure: No Alcohol intake: never Substance use: current Other substance usage details: CBD oil Lack of Transportation: No Lack of Food: Never True Current Housing: I Have Housing Concerned About Future Housing: No Difficulty Paying Gas/Electric
--- NOTE | 2023-10-19 13:42 | ECG_ITS ---
SEE SCANNED COPY FOR CONFIRMED REPORT MTDD
== END 2023-10-19 14:18 | disposition short-term general hospital (02) ==
PROVIDERS: Emergency Provider Nurse Practitioner Family; PCP Physician Assistant
DX: R53.83 Other fatigue (principal); F32.A Depression, unspecified
CPT/HCPCS: 81003; 93005; 99213; G0463

== ENCOUNTER 2023-10-19 15:42 | Emergency (ER) | payer MEDICARE, SELFPAY ==
--- NOTE | ~2023-10-19 | CT_ITS ---
EXAMINATION:CT diagnostic chest wo con DATE: 10/19/2023 18:38 INDICATION: Shortness of breath. TECHNIQUE: Computed tomography (CT) of the chest was performed without intravenous contrast. Automate d exposure control and iterative reconstruction technique were employed. The dose-length product (DLP ) was 400.38 mGy-cm. COMPARISON: CT abdomen and pelvis 07/12/2022 FINDINGS: There is mild bronchiectasis in the lungs with a lower lung predominance. There is honeycom medardo in right middle lobe. There is septal thickening in the lungs with a lower lung predominance. No pleural effusion. Cardiomegaly is noted. There are coronary artery calcifications. No pericardial ef fusion. There is mild mediastinal and bilateral hilar lymphadenopathy. There are changes of cholecyst ectomy. There is liver surface nodularity, consistent with cirrhosis. There is thoracic kyphosis and severe spondylosis. IMPRESSION: 1. Chronic interstitial lung disease in pattern of usual interstitial pneumonia (UIP). 2. Mild mediastinal and bilateral hilar lymphadenopathy, likely reactive. 3. Cirrhosis of the liver. Reviewed, dictated and finalized at location E.
--- NOTE | ~2023-10-19 | XR_ITS ---
EXAMINATION: XR chest 1V portable DATE: 10/19/2023 17:14 INDICATION: Shortness of breath. TECHNIQUE: A single frontal view of the chest was obtained. COMPARISON: Chest 2 views 10/14/2023 FINDINGS: There is no pneumonia, pleural effusion, or pneumothorax. Cardiomegaly is noted. IMPRESSION: 1. Cardiomegaly. Reviewed, dictated and finalized at location E. IMPRESSION: 1. Cardiomegaly.
[2023-10-19 15:57] VITALS: BP 161/71; PULSE 67; RESP 18; TEMP 36.4; O2SAT 97
[2023-10-19 17:21] LABS: Basophils Absolute Auto 0.1 K/mm3 (0.0-0.1); Basophils Percent Auto 0.6 % (0.2-1.2); Eosinophils Absolute Auto 0.3 K/mm3 (0-0.3); Eosinophils Percent Auto 3.3 % (0-4.4); Hematocrit 40.1 % (37.0-47.0); Immature Granulocyte Absolute 0.03 K/mm3 (0.00-0.031); Immature Granulocyte Percent A 0.4 % (0-0.5); Lymphocytes Percent Auto 6.2 % (18.3-44.2); Mean Corpuscular HGB Conc 32.4 g/dl (32-36); Mean Corpuscular Hemoglobin 30.5 pg (26-34); Mean Corpuscular Volume 94.1 fl (80-100); Mean Platelet Volume 9.5 fl (7.4-10.4); Monocytes Absolute Auto 0.9 K/mm3 (0.1-0.6); Monocytes Percent Auto 10.9 % (2.6-8.5); Neutrophils Absolute Auto 6.4 K/mm3 (1.3-6.7); Neutrophils Percent Auto 78.6 % (45.5-73.1); Platelet Count Result 302 k/mm3 (150-375); Red Blood Count 4.26 M/mm3 (4.2-5.4); White Blood Count 8.1 K/mm3 (4.5-10.0)
[2023-10-19 17:32] LABS: Partial Thromboplastin Time 32.6 Seconds (22.3-36.8); Prothrombin Time 13.6 Seconds (11.1-14.7)
[2023-10-19 17:35] LABS: Alanine Aminotransferase 21 U/L (6-35); Albumin Level 3.8 g/dL (3.5-5.1); Alkaline Phosphatase 229 U/L (38-126); Anion Gap 4 mmol/L (4-12); Aspartate Amino Transferase 37 U/L (14-36); Bilirubin,Total 0.7 mg/dL (0.2-1.3); Blood Urea Nitrogen 20 mg/dL (7-17); Carbon Dioxide 28 mmol/L (22-30); Chloride 105 mmol/L (98-107); Estimated CRCL calculation 47 ml/min; Estimated Glomerular Filt Rate 60; Glucose 95 mg/dL (65-110); Potassium 3.9 mmol/L (3.4-5.0); Sodium 137 mmol/L (137-145)
[2023-10-19 17:42] LABS: NT Pro B Type Natriuretic Pept 1060 pg/mL (19.9-100)
--- NOTE | 2023-10-19 17:42 | ED.GENADULT ---
HPI - General Adult General Chief complaint: Weakness Stated complaint: fatigue, weakness Time Seen by Provider: 10/19/23 16:01 History of Present Illness HPI narrative: 83-year-old female presented to the emergency department for evaluation of worsening exertional shortness of breath since the patient had COVID back in August. Patient states since August she has had some physical deconditioning and worsening exertional shortness of breath. Patient denies any chest pain with this exertional shortness of breath. Patient did have follow-up with Cardiology and is scheduled for an outpatient echocardiogram. Patient denies any increase in her lower extremity swelling. Related Data Home Medications Medication Instructions Recorded Confirmed vilazodone 20 mg tablet 20 mg PO DAILY 02/20/23 10/19/23 ursodiol 500 mg tablet 500 mg PO BID 10/19/23 10/19/23 Allergies Allergy/AdvReac Type Severity Reaction Status Date / Time Gadolinium-Containing Allergy Severe Chest Pain Verified 10/19/23 13:11 Contrast Medi adhesive tape Allergy Mild Rash Verified 10/19/23 13:27 ioversol Allergy Unknown Other Verified 10/19/23 13:11 morphine Allergy Unknown Liver Verified 10/19/23 13:11 function tests abnormal acetaminophen AdvReac Severe kidney Verified 10/19/23 13:11 stop working tramadol AdvReac Severe Other Verified 10/19/23 13:11 benzonatate AdvReac Unknown Headache Verified 10/19/23 13:11 codeine AdvReac Unknown Headache Verified 10/19/23 13:11 Review of Systems Review of Systems: All systems reviewed & are unremarkable except as noted in HPI and below PMFSH Past Medical History Medical History Depression Elevated alkaline phosphatase level Irregular heart beat Loss of balance Primary biliary cirrhosis Thyroid disease Surgical History Surgical History H/O: hysterectomy 1974 History of cholecystectomy 1996 History of knee replacement - 1997, 1998, 1999, 2001 History of tubal ligation 1973 Family History Family History Father Hypertension Cerebrovascular accident, Onset Age: 70 Patient's father is Mother Hypertension Family history of aortic aneurysm, Onset Age: 81 Sibling Hypertension Family history of diabetes mellitus in first degree relative Family history of coronary artery disease Family history of premature coronary heart disease Patient's brother is Family history of malignant neoplasm of brain Family history of type 2 diabetes mellitus Social History Social History Social History: Caffeine-daily Smoking status: Never smoker Second hand tobacco smoke exposure: No Alcohol intake: never Substance use: current Other substance usage details: CBD oil Lack of Transportation: No Lack of Food: Never True Current Housing: I Have Housing Concerned About Future Housing: No Difficulty Paying Gas/Electric Bills: No Difficulty Paying for Meds: No Currently Unemployed: No Education: High School Diploma/GED Difficulty w/ Childcare or Family Care: No Spiritual care concerns: No Exam Narrative: APPEARANCE: Well appearing, no pain, no distress, well-nourished. HEAD: normocephalic, atraumatic. EYES: PERRLA/EOMI, conjunctivae clear. NOSE: Normal no drainage EARS:TMS clear with good light reflex. THROAT: Pharynx clear, no exudate. NECK: Supple. No adenopathy, no masses. RESPIRATORY: Airway patent, respirations nonlabored. Clear to auscultation bilaterally, no rales, rhonchi, wheezing. CARDIOVASCULAR: Regular rate and rhythm without murmurs rubs or gallops. ABDOMINAL: Soft, nontender, nondistended, normal bowel sounds MUSCULOSKELETAL: Moves all extremities. Plus one pitting edema bilaterally
[2023-10-19 17:57] LABS: D Dimer 0.74 ug/mL (<0.48)
[2023-10-19 18:08] VITALS: BP 181/81; PULSE 68; RESP 19; O2SAT 97
[2023-10-19 19:19] VITALS: BP 171/88; PULSE 81; RESP 17; O2SAT 94
== END 2023-10-19 19:20 | disposition home or self-care (01) ==
PROVIDERS: Emergency Provider Emergency Medicine; PCP Physician Assistant
DX: R06.00 Dyspnea, unspecified (principal)
CPT/HCPCS: 36415; 71045; 71250; 80053; 81003; 83880; 85025; 85380; 85610; 85730; 93005; 99284

== ENCOUNTER 2023-11-04 13:16 | Emergency (ER) | payer MEDICARE, SELFPAY ==
[2023-11-04 13:23] VITALS: BP 145/56; PULSE 60; RESP 18; TEMP 37; O2SAT 97
--- NOTE | 2023-11-04 13:50 | ED.URI ---
HPI - URI/Sore Throat General Chief Complaint: Upper Respiratory Infection Stated Complaint: Shortness of Breath/Cough Time Seen by Provider: 11/04/23 13:50 Source: patient Mode of arrival: ambulatory Limitations: no limitations History of Present Illness HPI Narrative: 83-year-old female presents with complaint of continued cough, intermittent shortness of breath with exertion. Patient states that she has been seen by her primary care physician for this complaint and was also seen at the ER. Patient states that she has had normal chest x-rays. Chest CT showed no pneumonia. Recently had a heart echo that was normal. Patient states the local sales manager doing the echo called her primary care physician and told him that he thought he saw pneumonia on the echo. Patient was then given antibiotics. Has been on antibiotics for 48 hours and reports no change to cough. Patient states she wants to know if she ?really has pneumonia or not ?. Afebrile. All systems reviewed and negative except as noted above. Related Data Home Medications Medication Instructions Recorded Confirmed vilazodone 20 mg tablet 20 mg PO DAILY 02/20/23 10/19/23 ursodiol 500 mg tablet 500 mg PO BID 10/19/23 11/04/23 Allergies Allergy/AdvReac Type Severity Reaction Status Date / Time Gadolinium-Containing Allergy Severe Chest Pain Verified 10/19/23 13:11 Contrast Medi adhesive tape Allergy Mild Rash Verified 10/19/23 13:27 ioversol Allergy Unknown Other Verified 10/19/23 13:11 morphine Allergy Unknown Liver Verified 10/19/23 13:11 function tests abnormal acetaminophen AdvReac Severe kidney Verified 10/19/23 13:11 stop working tramadol AdvReac Severe Other Verified 10/19/23 13:11 benzonatate AdvReac Unknown Headache Verified 10/19/23 13:11 codeine AdvReac Unknown Headache Verified 10/19/23 13:11 Review of Systems Review of Systems: CONSTITUTIONAL: Denies fever, chills, or sweats. Reports fatigue. EYES: Denies visual changes, redness, or discharge. ENT: Denies rhinorrhea, congestion, sore throat, or otalgia. CARDIOVASCULAR: Denies chest pain, palpitations, or edema. RESPIRATORY: Reports cough and dyspnea with exertion. GASTROINTESTINAL: Denies abdominal pain, nausea, vomiting, or diarrhea. GENITOURINARY: Denies dysuria or hematuria. SKIN: Denies rash or itching. MUSCULOSKELETAL: Denies back pain, joint pain, or myalgia. NEUROLOGIC: Denies headache, numbness, or weakness. PSYCHIATRIC: Denies anxiety or depression. All other systems reviewed are negative, except as documented in HPI. [facility] Past Medical History Medical History Depression Elevated alkaline phosphatase level Irregular heart beat Loss of balance Primary biliary cirrhosis Thyroid disease Surgical History Surgical History H/O: hysterectomy 1974 History of cholecystectomy 1996 History of knee replacement - 1997, 1998, 1999, 2001 History of tubal ligation 1973 Family History Family History Father Hypertension Cerebrovascular accident, Onset Age: 70 Patient's father is Mother Hypertension Family history of aortic aneurysm, Onset Age: 81 Sibling Hypertension Family history of diabetes mellitus in first degree relative Family history of coronary artery disease Family history of premature coronary heart disease Patient's brother is Family history of malignant neoplasm of brain Family history of type 2 diabetes mellitus Social History Social History Social History: Caffeine-daily Smoking status: Never smoker Second hand tobacco smoke exposure: No Alcohol intake: never Substance use: current Other substance usage details: CBD oil Lack of Transportation: No Lack of F
== END 2023-11-04 14:26 | disposition home or self-care (01) ==
PROVIDERS: Emergency Provider Nurse Practitioner Family
DX: J20.9 Acute bronchitis, unspecified (principal); F32.A Depression, unspecified
CPT/HCPCS: 99211; G0463

== ENCOUNTER 2024-01-01 13:19 | Emergency (ER) | payer MEDICARE, SELFPAY ==
--- NOTE | ~2024-01-01 | CT_ITS ---
CT abdomen pelvis wo con Ordering provider: Niki Martínez MD History: 83 years Female with . left flank pain . Comparison: July 12, 2022 Technique: CT abdomen and pelvis with IV and without oral contrast. Automated exposure control and it erative reconstruction technique were employed. The dose-length product was 967.67 mGy-cm. Findings: VISUALIZED LOWER CHEST: Cardiomegaly. Minimal fibrotic changes in the lung bases. UPPER ABDOMINAL ORGANS: Liver: Slight lobulation of the outline of the liver which may indicate cirrhosis. Clinical correlati on advised. Gallbladder: Status post cholecystectomy. Spleen: Normal. Stomach/duodenum: Small sliding hiatus hernia. Pancreas: Normal. Adrenals: Normal. Kidneys: Normal. PELVIC ORGANS: The bladder is normal. BOWEL AND MESENTERY: Colon: Diverticulitis is seen in the proximal descending colon near to the hepatic flexure with surro unding fat stranding. No evidence of free air or collection seen. Follow-up advised.. The appendix is not demonstrated. No evidence of diverticulitis seen. Small Bowel: Normal. No obstruction. Peritoneum/mesentery: No free air or free fluid. No mesenteric lymphadenopathy. Mesenteric calcificat ions are seen in the mid abdomen. RETROPERITONEUM: Mild atheromatous disease of the abdominal aorta. No retroperitoneal lymphadenopat hy. MUSCULOSKELETAL: Superficial soft tissues: A fat-containing umbilical hernia. Another fat-containing hernia is seen ju st inferior to the umbilicus. Otherwise, The superficial soft tissues are normal. Bones: Age appropriate degenerative changes of the spine. Levoscoliosis. IMPRESSION: 1. Diverticulitis in the descending colon. 2. Mesenteric root calcification unchanged from previous examination. 3. Fat containing umbilical and paraumbilical hernias. 4. Possible liver cirrhosis. Reviewed, dictated and finalized at location A.
[2024-01-01 13:23] VITALS: BP 156/81; PULSE 96; RESP 17; TEMP 36.9; O2SAT 98
[2024-01-01 14:09] LABS: Basophils Percent Auto 0.3 % (0.2-1.2); Eosinophils Absolute Auto 0.2 K/mm3 (0-0.3); Eosinophils Percent Auto 1.2 % (0-4.4); Hematocrit 39.8 % (37.0-47.0); Hemoglobin 12.9 g/dL (12.0-15.0); Immature Granulocyte Absolute 0.06 K/mm3 (0.00-0.031); Immature Granulocyte Percent A 0.5 % (0-0.5); Lymphocytes Percent Auto 2.4 % (18.3-44.2); Mean Corpuscular HGB Conc 32.4 g/dl (32-36); Mean Corpuscular Hemoglobin 30.9 pg (26-34); Mean Corpuscular Volume 95.2 fl (80-100); Mean Platelet Volume 9.5 fl (7.4-10.4); Monocytes Absolute Auto 0.9 K/mm3 (0.1-0.6); Monocytes Percent Auto 7.1 % (2.6-8.5); Neutrophils Absolute Auto 11.3 K/mm3 (1.3-6.7); Neutrophils Percent Auto 88.5 % (45.5-73.1); Platelet Count Result 243 k/mm3 (150-375); Red Blood Count 4.18 M/mm3 (4.2-5.4); Red Cell Distribution Width 14.2 % (11.5-14.5); White Blood Count 12.7 K/mm3 (4.5-10.0)
[2024-01-01 14:15] LABS: Appearance Urine Clear (Clear); Bacteria Urine None Seen /hpf; Bilirubin Urine Negative (Negative); Blood Urine Negative (Negative); Color Urine Yellow (Yellow); Glucose Urine UA Negative (Negative); Ketones Urine Negative (Negative); Leukocyte Esterase Ur 3+ LEU/UL (Negative); Nitrate Urine Negative (Negative); Non Pathogenic Casts 0-2; Protein Urine Negative (Negative); RBC Urine 0-2 /hpf (0-2); Squamous Epithelial Cell Urine None Seen /hpf (Few); Urobilinogen Urine 0.2 mg/dL (<2.0); WBC Urine >100 /hpf (0-3); pH Urine 7.5 (5.0-9.0)
[2024-01-01 14:17] LABS: Add Urine Microscopic? YES; Lipase 61 U/L (23-300)
[2024-01-01 14:23] LABS: Alanine Aminotransferase 22 U/L (6-35); Albumin Level 3.7 g/dL (3.5-5.1); Alkaline Phosphatase 215 U/L (38-126); Anion Gap 6 mmol/L (4-12); Aspartate Amino Transferase 35 U/L (14-36); Bilirubin,Total 0.8 mg/dL (0.2-1.3); Blood Urea Nitrogen 17 mg/dL (7-17); Calcium 8.7 mg/dL (8.4-10.2); Carbon Dioxide 30 mmol/L (22-30); Chloride 102 mmol/L (98-107); Estimated CRCL calculation 42 ml/min; Estimated Glomerular Filt Rate 53; Glucose 109 mg/dL (65-110); Potassium 3.7 mmol/L (3.4-5.0); Sodium 138 mmol/L (137-145)
--- NOTE | 2024-01-01 15:16 | ED.FEMALEGU ---
HPI - Female Genitourinary General Chief complaint: Urogenital-Female Stated complaint: uti Time Seen by Provider: 01/01/24 13:34 Source: patient, RN notes reviewed and old records reviewed Mode of arrival: wheelchair Limitations: no limitations History of Present Illness HPI Narrative: This is an 83 year old female who presents for evaluation of left flank pain . PAtient states she developed left flank pain on Tuesday. She also reports having intermittent urinary hesitancy and dysuria. She denies nausea, vomiting or fever. She has continued to have intermittent left flank pain. She states she had pain radiating to her lower abdomen but that has resolved. She reports history of UTIs and her last one was 1 month ago. She reports her pain is 4/10. Related Data Home Medications Medication Instructions Recorded Confirmed vilazodone 20 mg tablet 20 mg PO DAILY 02/20/23 10/19/23 ursodiol 500 mg tablet 500 mg PO BID 10/19/23 11/04/23 Allergies Allergy/AdvReac Type Severity Reaction Status Date / Time Gadolinium-Containing Allergy Severe Chest Pain Verified 01/01/24 13:25 Contrast Medi adhesive tape Allergy Mild Rash Verified 01/01/24 13:25 ioversol Allergy Unknown Other Verified 01/01/24 13:25 morphine Allergy Unknown Liver Verified 01/01/24 13:25 function tests abnormal acetaminophen AdvReac Severe kidney Verified 01/01/24 13:25 stop working tramadol AdvReac Severe Other Verified 01/01/24 13:25 benzonatate AdvReac Unknown Headache Verified 01/01/24 13:25 codeine AdvReac Unknown Headache Verified 01/01/24 13:25 Review of Systems Constitutional: Constitutional: Denies weakness Cardiovascular: Cardiovascular: Denies syncope, Denies rapid heart rate, Denies irregular heart rhythm, Denies leg edema and Denies dyspnea Respiratory: Respiratory: Denies chest congestion, Denies hemoptysis, Denies excessive phlegm production and Denies dyspnea Gastrointestinal: Gastrointestinal: Reports abdominal pain, Denies hematochezia, Denies diarrhea and Denies vomiting Genitourinary: Genitourinary: Denies hematuria, Reports dysuria and Reports flank pain Musculoskeletal: Musculoskeletal: Reports back pain, Denies joint swelling, Denies loss of height and Denies muscle weakness Neurologic: Denies syncope, Denies focal weakness and Denies weakness PMFSH Past Medical History Medical History Depression Elevated alkaline phosphatase level Irregular heart beat Loss of balance Primary biliary cirrhosis Thyroid disease Surgical History Surgical History H/O: hysterectomy 1974 History of cholecystectomy 1996 History of knee replacement - 1997, 1998, 1999, 2001 History of tubal ligation 1973 Family History Family History Father Hypertension Cerebrovascular accident, Onset Age: 70 Patient's father is Mother Hypertension Family history of aortic aneurysm, Onset Age: 81 Sibling Hypertension Family history of diabetes mellitus in first degree relative Family history of coronary artery disease Family history of premature coronary heart disease Patient's brother is Family history of malignant neoplasm of brain Family history of type 2 diabetes mellitus Social History Social History Social History: Caffeine-daily Smoking status: Never smoker Second hand tobacco smoke exposure: No Alcohol intake: never Substance use: current Other substance usage details: CBD oil Lack of Transportation: No Lack of Food: Never True Current Housing: I Have Housing Concerned About Future Housing: No Difficulty Paying Gas/Electric Bills: No Difficulty Paying for Meds: No Currently Unemployed: No Education: High School Diploma
[2024-01-01 15:23] VITALS: BP 175/99; PULSE 75; RESP 18; TEMP 36.6; O2SAT 98
[2024-01-01] MEDS: metroNIDAZOLE 500 MG TABLET PO (16:24)
[2024-01-01] MEDS: CIPROFLOXACIN 500 MG TAB PO (16:24)
== END 2024-01-01 17:12 | disposition home or self-care (01) ==
PROVIDERS: Emergency Provider General Practice; PCP Internal Medicine
DX: K57.92 Diverticulitis of intestine, part unspecified, without perforation or abscess without bleeding (principal); N39.0 Urinary tract infection, site not specified; K42.9 Umbilical hernia without obstruction or gangrene; F32.A Depression, unspecified
CPT/HCPCS: 36415; 74176; 80053; 81001; 83690; 85025; 87086; 99284; A9270

== ENCOUNTER 2024-01-05 09:56 | Emergency (ER) | payer MEDICARE, SELFPAY ==
[2024-01-05] VITALS (13 sets, daily range): BP systolic 104–153; BP diastolic 61–78; PULSE 74–85; RESP 16–20; TEMP 36.6; O2SAT 96–100
--- NOTE | ~2024-01-05 | CT_ITS ---
EXAMINATION: CT abdomen pelvis wo con DATE: 01/05/2024 10:28 INDICATION: Urinary retention. TECHNIQUE: Computed tomography (CT) of the abdomen and pelvis was performed without intravenous contr ast. Automated exposure control and iterative reconstruction technique were employed. The dose-length product was 936.07 mGy-cm. COMPARISON: CT abdomen and pelvis 01/01/2024 FINDINGS: The visualized portions of the lung bases demonstrate chronic septal thickening and mild br onchiectasis. No pleural effusion. There is right-sided pleural thickening. Cardiomegaly is noted. No pericardial effusion. There are coronary artery calcifications. The liver demonstrates surface nodul arity, consistent with cirrhosis. There are changes of cholecystectomy. The spleen, pancreas, and adr enal glands are normal. There is cortical thinning of the kidneys. There are umbilical and infraumbil ical ventral hernias containing fat. There is diverticulosis of the colon without evidence of diverti culitis. The appendix is not visualized. There is infiltrating soft tissue with calcifications at the root of the small bowel mesentery measuring up to 5.7 cm. There is calcified atherosclerosis of the aorta and many of the other arteries. There are no pathologically enlarged lymph nodes. There is no f ree intraperitoneal fluid. There is severe thoracic and lumbar spondylosis. IMPRESSION: 1. Chronic interstitial lung disease. 2. Cirrhosis of the liver. 3. Umbilical and infraumbilical ventral hernias containing fat. 4. Chronic infiltrating calcified mass at the root of the small bowel mesentery. The differential lawanda gnosis includes sclerosing mesenteritis and carcinoid. Reviewed, dictated and finalized at location A. IMPRESSION: 1. Chronic interstitial lung disease. 2. Cirrhosis of the liver. 3. Umbilical and infraumbilical ventral hernias containing fat. 4. Chronic infiltrating calcified mass at the root of the small bowel mesentery . The differential diagnosis includes sclerosing mesenteritis and carcinoid.
--- NOTE | 2024-01-05 10:16 | ED.FEMALEGU ---
HPI - Female Genitourinary General Chief complaint: Urogenital-Female Stated complaint: URINARY RETENTION, HX UTI Time Seen by Provider: 01/05/24 10:01 History of Present Illness HPI Narrative: 83-year-old female with history of CKD, PVT, PAF, hypothyroidism, hypertension, who come presents to the emergency department for urinary retention since 02:30 this morning. Patient states she last urinated at 2:30 a.m.. States it was a small amount that she did not feel like she empties her bladder. She has not urinated since. States this is never happened before. She denies abdominal pain or suprapubic pain. She does endorse nausea but no emesis. She was seen in our emergency department on 12/24/2023 for left flank pain. She had a CT performed was found to have diverticulitis and UTI. She was started on Cipro and Flagyl which she states she has been taking. She is unsure she has missed any doses. She states she was having dysuria which she was seen in the ED without has since resolved. She also endorses that she has had intermittent fevers at home but cannot identify when the see bruise were. States her T-max was 101?. She has not taken any antipyretics at home. She does endorse a history of kidney stone when she was a teenager. Related Data Home Medications Medication Instructions Recorded Confirmed vilazodone 20 mg tablet 20 mg PO DAILY 02/20/23 10/19/23 ursodiol 500 mg tablet 500 mg PO BID 10/19/23 11/04/23 Allergies Allergy/AdvReac Type Severity Reaction Status Date / Time Gadolinium-Containing Allergy Severe Chest Pain Verified 01/05/24 10:11 Contrast Medi adhesive tape Allergy Mild Rash Verified 01/05/24 10:11 ioversol Allergy Unknown Other Verified 01/05/24 10:11 morphine Allergy Unknown Liver Verified 01/05/24 10:11 function tests abnormal acetaminophen AdvReac Severe kidney Verified 01/05/24 10:11 stop working tramadol AdvReac Severe Other Verified 01/05/24 10:11 benzonatate AdvReac Unknown Headache Verified 01/05/24 10:11 codeine AdvReac Unknown Headache Verified 01/05/24 10:11 Review of Systems Review of Systems: All systems reviewed & are unremarkable except as noted in HPI and below PMFSH Past Medical History Medical History Depression Elevated alkaline phosphatase level Irregular heart beat Loss of balance Primary biliary cirrhosis Thyroid disease Surgical History Surgical History H/O: hysterectomy 1974 History of cholecystectomy 1996 History of knee replacement - 1997, 1998, 1999, 2001 History of tubal ligation 1973 Family History Family History Father Hypertension Cerebrovascular accident, Onset Age: 70 Patient's father is Mother Hypertension Family history of aortic aneurysm, Onset Age: 81 Sibling Hypertension Family history of diabetes mellitus in first degree relative Family history of coronary artery disease Family history of premature coronary heart disease Patient's brother is Family history of malignant neoplasm of brain Family history of type 2 diabetes mellitus Social History Social History Social History: Caffeine-daily Smoking status: Never smoker Second hand tobacco smoke exposure: No Alcohol intake: never Substance use: current Other substance usage details: CBD oil Lack of Transportation: No Lack of Food: Never True Current Housing: I Have Housing Concerned About Future Housing: No Difficulty Paying Gas/Electric Bills: No Difficulty Paying for Meds: No Currently Unemployed: No Education: High School Diploma/GED Difficulty w/ Childcare or Family Care: No Spiritual care concerns: No Exam Narrative: GENERAL: Well-appe
[2024-01-05 11:44] LABS: Basophils Percent Auto 0.3 % (0.2-1.2); Eosinophils Absolute Auto 0.3 K/mm3 (0-0.3); Eosinophils Percent Auto 4.8 % (0-4.4); Hematocrit 38.8 % (37.0-47.0); Hemoglobin 12.3 g/dL (12.0-15.0); Immature Granulocyte Absolute 0.04 K/mm3 (0.00-0.031); Immature Granulocyte Percent A 0.6 % (0-0.5); Lymphocytes Absolute Auto 0.26 K/mm3 (0.9-3.2); Lymphocytes Percent Auto 3.8 % (18.3-44.2); Mean Corpuscular HGB Conc 31.7 g/dl (32-36); Mean Corpuscular Hemoglobin 30.1 pg (26-34); Mean Corpuscular Volume 95.1 fl (80-100); Mean Platelet Volume 9.4 fl (7.4-10.4); Monocytes Absolute Auto 0.6 K/mm3 (0.1-0.6); Monocytes Percent Auto 9.1 % (2.6-8.5); Neutrophils Absolute Auto 5.5 K/mm3 (1.3-6.7); Neutrophils Percent Auto 81.4 % (45.5-73.1); Platelet Count Result 223 k/mm3 (150-375); Red Blood Count 4.08 M/mm3 (4.2-5.4); Red Cell Distribution Width 14.5 % (11.5-14.5); White Blood Count 6.8 K/mm3 (4.5-10.0)
[2024-01-05 11:59] LABS: Alanine Aminotransferase 20 U/L (6-35); Albumin Level 2.9 g/dL (3.5-5.1); Alkaline Phosphatase 170 U/L (38-126); Anion Gap 7 mmol/L (4-12); Aspartate Amino Transferase 35 U/L (14-36); Bilirubin,Total 0.3 mg/dL (0.2-1.3); Blood Urea Nitrogen 14 mg/dL (7-17); Calcium 8.2 mg/dL (8.4-10.2); Carbon Dioxide 25 mmol/L (22-30); Chloride 101 mmol/L (98-107); Estimated CRCL calculation 42 ml/min; Estimated Glomerular Filt Rate 53; Glucose 100 mg/dL (65-110); Sodium 133 mmol/L (137-145)
[2024-01-05 12:04] LABS: Add Urine Microscopic? NO; Appearance Urine Clear (Clear); Bilirubin Urine Negative (Negative); Blood Urine Negative (Negative); Color Urine Yellow (Yellow); Glucose Urine UA Negative (Negative); Ketones Urine Negative (Negative); Leukocyte Esterase Ur Negative LEU/UL (Negative); Nitrate Urine Negative (Negative); Protein Urine Negative (Negative); Specific Grav Ur 1.007 (1.001-1.035); Urobilinogen Urine 0.2 mg/dL (<2.0)
[2024-01-05] MEDS: SODIUM CHLORIDE 0.9% IV 1,000 ML 999 ML IV CONT (12:10)
--- NOTE | 2024-01-24 10:39 | PC.NURSE ---
LATE ENTRY This note is being entered to document information to the patient's record. The following information was omitted on [01/05/24], by [Amy Linn RN]. IV Fluids stopped at 1230
== END 2024-01-05 12:54 | disposition home or self-care (01) ==
PROVIDERS: Emergency Provider Physician Assistant; PCP Internal Medicine
DX: K63.89 Other specified diseases of intestine (principal); I12.9 Hypertensive chronic kidney disease with stage 1 through stage 4 chronic kidney disease, or unspecified chronic kidney disease; N18.9 Chronic kidney disease, unspecified; I48.0 Paroxysmal atrial fibrillation; E03.9 Hypothyroidism, unspecified; K74.60 Unspecified cirrhosis of liver; J84.9 Interstitial pulmonary disease, unspecified; K42.9 Umbilical hernia without obstruction or gangrene; Z96.659 Presence of unspecified artificial knee joint; Z87.442 Personal history of urinary calculi; Z90.49 Acquired absence of other specified parts of digestive tract; Z90.710 Acquired absence of both cervix and uterus
CPT/HCPCS: 36415; 74176; 80053; 81003; 85025; 96360; 99284; J7030

== ENCOUNTER 2024-01-08 11:52 | Emergency (ER) | payer MEDICARE, SELFPAY ==
[2024-01-08] VITALS (21 sets, daily range): BP systolic 118–149; BP diastolic 61–78; PULSE 62–94; RESP 14–31; TEMP 36.6–37.1; O2SAT 95–100
--- NOTE | ~2024-01-08 | XR_ITS ---
Clinical Indication: Weakness, shortness of breath AP and lateral views of the chest: Comparison: 10/19/2023 Findings: The lungs are clear, without evidence of focal consolidation or pleural effusion. Cardiome diastinal silhouette is stable. Bones and soft tissues are unremarkable. Impression: Clear lungs. Stable cardiomegaly. Reviewed, dictated and finalized at location . Impression: Clear lungs. Stable cardiomegaly.
--- NOTE | ~2024-01-08 | US_ITS ---
Duplex Sonography of the bilateral lower extremities: Indication: Swelling Sagittal and transverse B-mode images as well as color-flow imaging were performed on the right and l eft femoral and popliteal veins. B-mode examination was done without and with compression in the tra nsverse plane. There is good visualization of the bilateral common femoral, proximal profunda femora l, superficial femoral, greater saphenous, and popliteal veins. Normal flow was seen on color-flow im aging. Normal compressibility was demonstrated. Impression: No evidence of deep vein thrombosis involving either lower extremity. Reviewed, dictated and finalized at location M. Impression: No evidence of deep vein thrombosis involving either lower extremit y.
--- NOTE | 2024-01-08 11:57 | ECG_ITS ---
Test Date: 2024-01-08 13:01:11 Measurements Intervals Bliss Rate: 64 P: 0 WV: 0 QRS: -37 QRSD: 113 T: 74 QT: 431 QTc: 445 Interpretive Statements ATRIAL FIBRILLATION WITH ABERRANT CONDUCTION OR VENTRICULAR PREMATURE COMPLEXES MARKED LEFT AXIS DEVIATION [QRS AXIS < -30] INTRAVENTRICULAR CONDUCTION DELAY POSSIBLE LEFT VENTRICULAR HYPERTROPHY [VOLTAGE CRITERIA PLUS LAE OR QRS WIDENING] NONSPECIFIC ST & T-WAVE ABNORMALITY ABNORMAL ECG No previous ECG available for comparison Electronically Signed On 01-09-2024 15:24:42 CDT by Filipe Jackson M.D.
[2024-01-08 12:43] LABS: Basophils Percent Auto 0.5 % (0.2-1.2); Eosinophils Absolute Auto 0.3 K/mm3 (0-0.3); Eosinophils Percent Auto 4.3 % (0-4.4); Hematocrit 40.1 % (37.0-47.0); Hemoglobin 12.7 g/dL (12.0-15.0); Immature Granulocyte Absolute 0.04 K/mm3 (0.00-0.031); Immature Granulocyte Percent A 0.5 % (0-0.5); Lymphocytes Absolute Auto 0.43 K/mm3 (0.9-3.2); Lymphocytes Percent Auto 5.7 % (18.3-44.2); Mean Corpuscular HGB Conc 31.7 g/dl (32-36); Mean Corpuscular Volume 94.6 fl (80-100); Mean Platelet Volume 9.4 fl (7.4-10.4); Monocytes Absolute Auto 0.8 K/mm3 (0.1-0.6); Neutrophils Absolute Auto 5.9 K/mm3 (1.3-6.7); Platelet Count Result 297 k/mm3 (150-375); Red Blood Count 4.24 M/mm3 (4.2-5.4); Red Cell Distribution Width 14.7 % (11.5-14.5); White Blood Count 7.5 K/mm3 (4.5-10.0)
[2024-01-08 12:44] LABS: Add Urine Microscopic? NO; Appearance Urine Clear (Clear); Bilirubin Urine Negative (Negative); Blood Urine Negative (Negative); Color Urine Yellow (Yellow); Glucose Urine UA Negative (Negative); Ketones Urine Negative (Negative); Leukocyte Esterase Ur Negative LEU/UL (Negative); Nitrate Urine Negative (Negative); Protein Urine Negative (Negative); Urobilinogen Urine 0.2 mg/dL (<2.0); pH Urine 6.5 (5.0-9.0)
[2024-01-08 13:08] LABS: Alanine Aminotransferase 22 U/L (6-35); Albumin Level 3.2 g/dL (3.5-5.1); Alkaline Phosphatase 152 U/L (38-126); Anion Gap 6 mmol/L (4-12); Aspartate Amino Transferase 36 U/L (14-36); Bilirubin,Total 0.4 mg/dL (0.2-1.3); Blood Urea Nitrogen 13 mg/dL (7-17); Calcium 8.3 mg/dL (8.4-10.2); Carbon Dioxide 27 mmol/L (22-30); Chloride 103 mmol/L (98-107); Estimated CRCL calculation 47 ml/min; Estimated Glomerular Filt Rate 60; Glucose 104 mg/dL (65-110); Potassium 3.9 mmol/L (3.4-5.0); Sodium 136 mmol/L (137-145)
[2024-01-08 13:16] LABS: NT Pro B Type Natriuretic Pept 3090 pg/mL (19.9-100)
--- NOTE | 2024-01-08 14:38 | ED.WEAKNESS ---
HPI - Weakness General Chief complaint: Weakness Stated complaint: abdominal pain Time Seen by Provider: 01/08/24 12:42 History of Present Illness HPI Narrative: Patient is an 83-year-old female who presents ER with reports of leg swelling. Ongoing over last couple of days. Better if she raises her legs. Also improves she takes her Lasix. Recently had her Lasix changed to 20 mg twice a day from 40 mg twice a day. No chest pain or shortness of breath. She is on antibiotics for UTI and diverticulitis. She is unsure which she is taking. She has no fevers or chills. Mild fatigue. Denies orthopnea. Related Data Home Medications Medication Instructions Recorded Confirmed vilazodone 20 mg tablet 20 mg PO DAILY 02/20/23 10/19/23 ursodiol 500 mg tablet 500 mg PO BID 10/19/23 11/04/23 Allergies Allergy/AdvReac Type Severity Reaction Status Date / Time Gadolinium-Containing Allergy Severe Chest Pain Verified 01/08/24 11:53 Contrast Medi adhesive tape Allergy Mild Rash Verified 01/08/24 11:53 ioversol Allergy Unknown Other Verified 01/08/24 11:53 morphine Allergy Unknown Liver Verified 01/08/24 11:53 function tests abnormal acetaminophen AdvReac Severe kidney Verified 01/08/24 11:53 stop working tramadol AdvReac Severe Other Verified 01/08/24 11:53 benzonatate AdvReac Unknown Headache Verified 01/08/24 11:53 codeine AdvReac Unknown Headache Verified 01/08/24 11:53 Review of Systems Review of Systems: All systems reviewed & are unremarkable except as noted in HPI and below Constitutional: Constitutional: Reports no additional constitutional complaints ENT: Reports system reviewed and no additional complaints, except as documented Cardiovascular: Cardiovascular: Reports no additional cardiovascular complaints Respiratory: Respiratory: Reports no additional respiratory complaints Gastrointestinal: Gastrointestinal: Reports no additional gastrointestinal complaints [facility] Past Medical History Medical History Depression Elevated alkaline phosphatase level Irregular heart beat Loss of balance Primary biliary cirrhosis Thyroid disease Surgical History Surgical History H/O: hysterectomy 1974 History of cholecystectomy 1996 History of knee replacement - 1997, 1998, 1999, 2001 History of tubal ligation 1973 Family History Family History Father Hypertension Cerebrovascular accident, Onset Age: 70 Patient's father is Mother Hypertension Family history of aortic aneurysm, Onset Age: 81 Sibling Hypertension Family history of diabetes mellitus in first degree relative Family history of coronary artery disease Family history of premature coronary heart disease Patient's brother is Family history of malignant neoplasm of brain Family history of type 2 diabetes mellitus Social History Social History Social History: Caffeine-daily Smoking status: Never smoker Second hand tobacco smoke exposure: No Alcohol intake: never Substance use: current Other substance usage details: CBD oil Lack of Transportation: No Lack of Food: Never True Current Housing: I Have Housing Concerned About Future Housing: No Difficulty Paying Gas/Electric Bills: No Difficulty Paying for Meds: No Currently Unemployed: No Education: High School Diploma/GED Difficulty w/ Childcare or Family Care: No Spiritual care concerns: No Exam Narrative: GENERAL: Well-appearing, well-nourished, and in no acute distress. HEAD: Normocephalic, atraumatic. EYES: PERRL and EOMI. ENT: Mucous membranes moist. CHEST: Clear to auscultation. No respiratory distress. HEART: Irregularly irregular rate rhythm. N
[2024-01-08] MEDS: FUROSEMIDE INJ 40 MG/4 ML VIAL IV PUSH (14:47)
--- NOTE | 2024-01-10 10:53 | PC.NURSE ---
Phone call was made to [facility] to ensure patients IV was removed, they would not discuss a resident with this RN even after explaining the situation and that the individual was a patient of the ER moments prior. [facility] contacted to welfare check the patient to ensure IV was no longer intact after patient discharge. reported that patient no longer had an iv intact.
== END 2024-01-08 15:24 | disposition home or self-care (01) ==
PROVIDERS: Emergency Provider Emergency Medicine; PCP Internal Medicine
DX: I50.9 Heart failure, unspecified (principal); R60.9 Edema, unspecified
CPT/HCPCS: 36415; 71046; 80053; 81003; 83880; 85025; 93005; 93970; 96374; 99284; J1940

== ENCOUNTER 2024-01-14 13:32 | Emergency (ER) | payer MEDICARE, SELFPAY ==
--- NOTE | ~2024-01-14 | XR_ITS ---
EXAMINATION: XR chest 2V DATE: 01/14/2024 16:57 INDICATION: Congestive heart failure. TECHNIQUE: Frontal and lateral views of the chest were obtained. COMPARISON: Chest 2 views 01/08/2024 FINDINGS: There is a diffuse interstitial pattern, consistent with mild pulmonary edema. No pleural e ffusion or pneumothorax. Cardiomegaly is noted. There is an old healed fracture of proximal right hum erus. IMPRESSION: 1. Mild pulmonary edema. 2. Cardiomegaly. Reviewed, dictated and finalized at location E.
[2024-01-14 13:53] VITALS: BP 145/61; PULSE 61; RESP 18; TEMP 36.7; O2SAT 96
--- NOTE | 2024-01-14 16:19 | ECG_ITS ---
Test Date: 2024-01-14 16:45:18 Measurements Intervals [place] Rate: 61 P: 0 CA: 0 QRS: -38 QRSD: 118 T: 42 QT: 426 QTc: 432 Interpretive Statements ATRIAL FIBRILLATION MARKED LEFT AXIS DEVIATION [QRS AXIS < -30] POSSIBLE LEFT VENTRICULAR HYPERTROPHY [VOLTAGE CRITERIA PLUS LAE OR QRS WIDENING] Compared to ECG 01/08/2024 13:01:11 Ventricular premature complex(es) no longer present T-wave abnormality no longer present Electronically Signed On 01-15-2024 13:40:00 CDT by Efren Serra M.D.
--- NOTE | 2024-01-14 16:19 | ED.SOB ---
HPI - SOB/Dyspnea General Chief Complaint: Shortness of Breath/Dyspnea Stated Complaint: SOB Time Seen by Provider: 01/14/24 15:31 History of Present Illness HPI Narrative: 83-year-old female with a history of interstitial pulmonary fibrosis, CKD, PAF, hyperlipidemia, hypertension, Hypertrophic cardiomyopathy, CHF presents emergency department for CHF exacerbation. patient states today her shortness of breath has worsened, especially on exertion. States she feels extremely short of breath walking to and from the bathroom. She also reports increased lower extremity edema today. She reports a dry cough denies fever, congestion, chest pain, abdominal pain, nausea, vomiting, diarrhea. She takes 20 mg of Lasix in the morning and 40 mg at night. States she has been taking these as directed. Her appeals analyst is at [place]. Per chart review last echo was 10/27/2023 which showed moderate concentric left ventricular hypertrophy, EF at 64%, aortic cusps appear mildly sclerotic, and grade 2 diastolic dysfunction. Related Data Home Medications Medication Instructions Recorded Confirmed vilazodone 20 mg tablet 20 mg PO DAILY 02/20/23 01/12/24 ursodiol 500 mg tablet 500 mg PO BID 10/19/23 01/12/24 Allergies Allergy/AdvReac Type Severity Reaction Status Date / Time Gadolinium-Containing Allergy Severe Chest Pain Verified 01/14/24 13:57 Contrast Medi adhesive tape Allergy Mild Rash Verified 01/14/24 13:57 ioversol Allergy Unknown Other Verified 01/14/24 13:57 morphine Allergy Unknown Liver Verified 01/14/24 13:57 function tests abnormal acetaminophen AdvReac Severe kidney Verified 01/14/24 13:57 stop working tramadol AdvReac Severe Other Verified 01/14/24 13:57 benzonatate AdvReac Unknown Headache Verified 01/14/24 13:57 codeine AdvReac Unknown Headache Verified 01/14/24 13:57 Review of Systems Review of Systems: All systems reviewed & are unremarkable except as noted in HPI and below PMFSH Past Medical History Medical History Depression Elevated alkaline phosphatase level Irregular heart beat Loss of balance Primary biliary cirrhosis Thyroid disease Surgical History Surgical History H/O: hysterectomy 1974 History of cholecystectomy 1996 History of knee replacement 4- 1997, 1998, 1999, 2001 History of tubal ligation 1973 Family History Family History Father Hypertension Cerebrovascular accident, Onset Age: 70 Patient's father is Mother Hypertension Family history of aortic aneurysm, Onset Age: 81 Sibling Hypertension Family history of diabetes mellitus in first degree relative Family history of coronary artery disease Family history of premature coronary heart disease Patient's brother is Family history of malignant neoplasm of brain Family history of type 2 diabetes mellitus Social History Social History Social History: Caffeine-daily Smoking status: Never smoker Second hand tobacco smoke exposure: No Alcohol intake: never Substance use: current Other substance usage details: CBD oil Lack of Transportation: No Lack of Food: Never True Current Housing: I Have Housing Concerned About Future Housing: No Difficulty Paying Gas/Electric Bills: No Difficulty Paying for Meds: No Currently Unemployed: No Education: High School Diploma/GED Difficulty w/ Childcare or Family Care: No Spiritual care concerns: No Exam Narrative: GENERAL: Well-appearing, well-nourished, and in no acute distress. HEAD: Normocephalic, atraumatic. EYES: PERRLA and EOMI. ENT: Nares clear, no rhinorrhea or epistaxis. Mucous membranes moist. NECK: Supple. CHEST: Clear to auscultatio
--- NOTE | 2024-01-14 16:32 | PCRCNOTE ---
Pt. refused ABG, provider aware.
[2024-01-14 16:34] VITALS: BP 172/94; PULSE 61; RESP 19; O2SAT 98
[2024-01-14 16:45] LABS: Basophils Absolute Auto 0.1 K/mm3 (0.0-0.1); Basophils Percent Auto 1.1 % (0.2-1.2); Eosinophils Absolute Auto 0.3 K/mm3 (0-0.3); Eosinophils Percent Auto 3.6 % (0-4.4); Hematocrit 43.7 % (37.0-47.0); Hemoglobin 14.1 g/dL (12.0-15.0); Immature Granulocyte Absolute 0.02 K/mm3 (0.00-0.031); Immature Granulocyte Percent A 0.3 % (0-0.5); Lymphocytes Absolute Auto 0.62 K/mm3 (0.9-3.2); Lymphocytes Percent Auto 8.2 % (18.3-44.2); Mean Corpuscular HGB Conc 32.3 g/dl (32-36); Mean Corpuscular Hemoglobin 30.3 pg (26-34); Mean Corpuscular Volume 93.8 fl (80-100); Mean Platelet Volume 9.1 fl (7.4-10.4); Monocytes Absolute Auto 0.7 K/mm3 (0.1-0.6); Neutrophils Absolute Auto 5.9 K/mm3 (1.3-6.7); Neutrophils Percent Auto 77.8 % (45.5-73.1); Platelet Count Result 347 k/mm3 (150-375); Red Blood Count 4.66 M/mm3 (4.2-5.4); Red Cell Distribution Width 15.1 % (11.5-14.5); White Blood Count 7.6 K/mm3 (4.5-10.0)
[2024-01-14 16:48] VITALS: O2SAT 98
[2024-01-14 16:55] LABS: Alanine Aminotransferase 14 U/L (6-35); Albumin Level 3.3 g/dL (3.5-5.1); Alkaline Phosphatase 129 U/L (38-126); Anion Gap 7 mmol/L (4-12); Aspartate Amino Transferase 36 U/L (14-36); Bilirubin,Total 0.5 mg/dL (0.2-1.3); Blood Urea Nitrogen 11 mg/dL (7-17); Carbon Dioxide 27 mmol/L (22-30); Chloride 102 mmol/L (98-107); Estimated CRCL calculation 42 ml/min; Estimated Glomerular Filt Rate 53; Glucose 97 mg/dL (65-110); Magnesium 2.3 mg/dL (1.6-2.3); Potassium 4.2 mmol/L (3.4-5.0); Sodium 136 mmol/L (137-145)
[2024-01-14 17:01] VITALS: BP 157/74; PULSE 59; RESP 19; O2SAT 99
[2024-01-14 17:03] LABS: INR 1.1; Prothrombin Time 14.2 Seconds (11.1-14.7)
[2024-01-14 17:04] LABS: Partial Thromboplastin Time 26.5 Seconds (22.3-36.8)
[2024-01-14 17:06] LABS: NT Pro B Type Natriuretic Pept 3040 pg/mL (19.9-100); Troponin I < 0.012 ng/mL (0.000-0.034)
[2024-01-14 17:52] LABS: Influenza A QL RT-PCR Negative (Negative); Influenza B QL RT-PCR Negative (Negative); RSV RNA, RT-PCR Negative (Negative); SARS-CoV-2 RNA PCR Negative (Negative)
[2024-01-14 17:57] VITALS: O2SAT 92
[2024-01-14 18:00] VITALS: O2SAT 100
== END 2024-01-14 18:43 | disposition home or self-care (01) ==
PROVIDERS: Emergency Provider Physician Assistant; PCP Internal Medicine
DX: R06.09 Other forms of dyspnea (principal); I13.0 Hypertensive heart and chronic kidney disease with heart failure and stage 1 through stage 4 chronic kidney disease, or unspecified chronic kidney disease; N18.9 Chronic kidney disease, unspecified; I50.33 Acute on chronic diastolic (congestive) heart failure; Z20.822 Contact with and (suspected) exposure to COVID-19
CPT/HCPCS: 36415; 36600; 71046; 80053; 83735; 83880; 84484; 85025; 85610; 85730; 87637; 93005; 99284

== ENCOUNTER 2024-02-18 14:31 | Emergency (ER) | payer MEDICARE, SELFPAY ==
[2024-02-18 14:33] VITALS: BP 158/95; PULSE 79; RESP 18; TEMP 36.6; O2SAT 99
--- NOTE | 2024-02-18 14:56 | ED.GENADULT ---
HPI - General Adult General Chief complaint: Skin/Abscess/Foreign Body Stated complaint: skin tear Time Seen by Provider: 02/18/24 14:37 History of Present Illness HPI narrative: Patient is an 83-year-old female who presents ER for skin tear to left forearm. Last night DESTINEY toledo fell striking her arm causing a skin tear. There was a flap but she approximated herself. She came in today because she cannot get a ride last night. Tetanus shot up-to-date. No other additional injuries. She would like skin glue to the skin tear. Related Data Home Medications Medication Instructions Recorded Confirmed vilazodone 20 mg tablet 20 mg PO DAILY 02/20/23 01/12/24 Allergies Allergy/AdvReac Type Severity Reaction Status Date / Time Gadolinium-Containing Allergy Severe Chest Pain Verified 01/14/24 13:57 Contrast Medi adhesive tape Allergy Mild Rash Verified 01/14/24 13:57 ioversol Allergy Unknown Other Verified 01/14/24 13:57 morphine Allergy Unknown Liver Verified 01/14/24 13:57 function tests abnormal acetaminophen AdvReac Severe kidney Verified 01/14/24 13:57 stop working tramadol AdvReac Severe Other Verified 01/14/24 13:57 benzonatate AdvReac Unknown Headache Verified 01/14/24 13:57 codeine AdvReac Unknown Headache Verified 01/14/24 13:57 Review of Systems Constitutional: Constitutional: Reports no additional constitutional complaints Integumentary/Breasts: Skin/Breast: Denies pruritus, Denies erythema, Denies rash and Denies skin ulcer PMFSH Past Medical History Medical History Depression Elevated alkaline phosphatase level Irregular heart beat Loss of balance Primary biliary cirrhosis Thyroid disease Surgical History Surgical History H/O: hysterectomy 1974 History of cholecystectomy 1996 History of knee replacement - 1997, 1998, 1999, 2001 History of tubal ligation 1973 Family History Family History Father Hypertension Cerebrovascular accident, Onset Age: 70 Patient's father is Mother Hypertension Family history of aortic aneurysm, Onset Age: 81 Sibling Hypertension Family history of diabetes mellitus in first degree relative Family history of coronary artery disease Family history of premature coronary heart disease Patient's brother is Family history of malignant neoplasm of brain Family history of type 2 diabetes mellitus Social History Social History Social History: Caffeine-daily Smoking status: Never smoker Second hand tobacco smoke exposure: No Alcohol intake: never Substance use: current Other substance usage details: CBD oil Lack of Transportation: No Lack of Food: Never True Current Housing: I Have Housing Concerned About Future Housing: No Difficulty Paying Gas/Electric Bills: No Difficulty Paying for Meds: No Currently Unemployed: No Education: High School Diploma/GED Difficulty w/ Childcare or Family Care: No Spiritual care concerns: No Exam Narrative: GENERAL: Well-appearing, well-nourished, and in no acute distress. HEAD: Normocephalic, atraumatic. EXTREMITIES: Normal range of motion. No edema. SKIN: Warm, dry, no rash. Left forearm with a 4 cm flap. Well-approximated along the medial margin NEURO: No focal deficits. Alert and oriented x3. PSYCH: Normal mood and affect. Course Course Emergency Course: Skin glue applied to 50% the wound at patient request. The other half the wound was not approximated enough to apply the adhesive material. 4x4s and Coban applied to form. Discharge home. Vital Signs Vital signs: Vital Signs Temperature 97.8 F 02/18/24 14:33 Pulse Rate 79 02/18/24 14:33 Respiratory Rate 18
== END 2024-02-18 15:32 | disposition home or self-care (01) ==
PROVIDERS: Emergency Provider Emergency Medicine; PCP Internal Medicine
DX: S51.812A Laceration without foreign body of left forearm, initial encounter (principal); W45.8XXA Other foreign body or object entering through skin, initial encounter
CPT/HCPCS: 12001; 99282

== ENCOUNTER 2024-03-14 14:18 | Outpatient (CLI) | payer MEDICARE, SELFPAY ==
--- NOTE | ~2024-03-14 | XR_ITS ---
Left foot Technique: AP, oblique, and lateral views were obtained. Clinical History: Pain Findings: Question nondisplaced fracture at the base of the fourth proximal phalanx.. Joint spaces ar e preserved without erosive or degenerative change. Soft tissues are unremarkable. Impression: Questionable nondisplaced intra-articular fracture at the base of the fourth proximal phalanx. Correl ate for point tenderness. Reviewed, dictated and finalized at location . Impression: Questionable nondisplaced intra-articular fracture at the base of the fourth pr oximal phalanx. Correlate for point tenderness.
--- NOTE | ~2024-03-14 | XR_ITS ---
Right ankle Technique: AP, oblique, and lateral views were obtained. Clinical History: Pain Findings: No acute fracture or dislocation is seen. Osseous alignment is anatomic. Ankle mortise and other visualized joint spaces are preserved. Diffuse soft tissue Present, especially medially. Impression: No osseous or articular abnormality. Diffuse soft tissue edema, nonspecific. Reviewed, dictated and finalized at location . Impression: No osseous or articular abnormality. Diffuse soft tissue edema, nonspecific.
--- NOTE | ~2024-03-14 | XR_ITS ---
Left ankle Technique: AP, oblique, and lateral views were obtained. Clinical History: Pain Findings: No acute fracture or dislocation is seen. Osseous alignment is anatomic. Ankle mortise and other visualized joint spaces are preserved. Diffuse soft tissue edema present. Impression: Diffuse soft tissue edema. No acute osseous or articular abnormality. Reviewed, dictated and finalized at [facility]. Impression: Diffuse soft tissue edema. No acute osseous or articular abnormality.
== END 2024-03-14 14:19 | disposition home or self-care (01) ==
LOC: ANHIMG 14:29
PROVIDERS: PCP Internal Medicine; Visit Provider Podiatrist Foot & Ankle Surgery
DX: M25.472 Effusion, left ankle (principal); M25.471 Effusion, right ankle; M79.672 Pain in left foot; M79.671 Pain in right foot
CPT/HCPCS: 73610; 73630

== ENCOUNTER 2024-04-02 14:36 | Emergency (ER) | payer MEDICARE, SELFPAY ==
[2024-04-02 14:48] VITALS: BP 140/88; PULSE 82; RESP 20; TEMP 36.7; O2SAT 98
[2024-04-02 15:09] VITALS: PULSE 82; RESP 20; TEMP 36.7; O2SAT 98
--- NOTE | 2024-04-02 15:38 | ED_ITS ---
HPI - Female Genitourinary General Chief complaint: Urogenital-Female Stated complaint: Urinary Problem Time Seen by Provider: 04/02/24 15:10 Source: patient, RN notes reviewed and old records reviewed Mode of arrival: ambulatory Limitations: no limitations History of Present Illness HPI Narrative: 83 year old female who presents to [facility] care with complaints of 3 days of perineal pain and pain at start of urine stream with urgency and some dribbling of urine with past history of UTI with similar symptoms. Patient reports no known fevers chills or sweats, denies any nausea or vomiting, denies any back pain or any CVA tenderness.Patient does wear depends. MD elicited complaint: dysuria and UTI Pertinent past history: other (past UTI) Onset (ago): day(s) (3) Location of symptoms: perineum and urethra Severity: moderate Severity scale (1-10): 3 Quality of pain: burning Vaginal discharge: none Related Data Home Medications Medication Instructions Recorded Confirmed vilazodone 20 mg tablet 20 mg PO DAILY 02/20/23 04/02/24 empagliflozin 10 mg tablet 10 mg PO DAILY 04/02/24 04/02/24 (Jardiance) sacubitril 49 mg-valsartan 51 mg See Rx Instructions .Route .COMPLEX 04/02/24 04/02/24 tablet (Entresto) Allergies Allergy/AdvReac Type Severity Reaction Status Date / Time Gadolinium-Containing Allergy Severe Chest Pain Verified 04/02/24 14:53 Contrast Medi adhesive tape Allergy Mild Rash Verified 04/02/24 14:53 ioversol Allergy Unknown Other Verified 04/02/24 14:53 morphine Allergy Unknown Liver Verified 04/02/24 14:53 function tests abnormal acetaminophen AdvReac Severe kidney Verified 04/02/24 14:53 stop working tramadol AdvReac Severe Other Verified 04/02/24 14:53 benzonatate AdvReac Unknown Headache Verified 04/02/24 14:53 codeine AdvReac Unknown Headache Verified 04/02/24 14:53 Review of Systems Review of Systems: CONSTITUTIONAL: Denies fever, chills, or sweats. CARDIOVASCULAR: Denies chest pain, palpitations, or edema. RESPIRATORY: Denies cough or dyspnea. GASTROINTESTINAL: Denies abdominal pain, nausea, vomiting, or diarrhea. GENITOURINARY: Reports dysuria, frequency, urgency dribbling. Denies flank pain or hematuria. SKIN: Denies rash or itching. MUSCULOSKELETAL: Denies back pain or myalgia. Denies CVA tenderness NEUROLOGIC: Denies headache All systems reviewed & are unremarkable except as noted in HPI and below PMFSH Past Medical History Medical History Depression Elevated alkaline phosphatase level Irregular heart beat Loss of balance Primary biliary cirrhosis Thyroid disease Surgical History Surgical History H/O: hysterectomy 1974 History of cholecystectomy 1996 History of knee replacement - 1997, 1998, 1999, 2001 History of tubal ligation 1973 Family History Family History Father Hypertension Cerebrovascular accident, Onset Age: 70 Patient's father is Mother Hypertension Family history of aortic aneurysm, Onset Age: 81 Sibling Hypertension Family history of diabetes mellitus in first degree relative Family history of coronary artery disease Family history of premature coronary heart disease Patient's brother is Family history of malignant neoplasm of brain Family history of type 2 diabetes mellitus Social History Social History Social History: Caffeine-daily Smoking status: Never smoker Second hand tobacco smoke exposure: No Alcohol intake: never Substance use: current Other substance usage details: CBD oil Lack of Transportation: No Lack of Food: Never True Current Housing: I Have Housing Concerned About Future Housing: No Difficulty Paying Gas/Electric Bills: No Difficulty Paying for Meds: No Currently Unemployed: No Education: High School Diploma/GED Difficulty w/ Childcare or Family Care: No Spiritual care concerns: No Comments At time of signature, agree with nursing past medical, surgical, social and family history. There is no relevant family history pertinent to the presenting complaint Exam Narrative: GENERAL: Well-appearing, well-nourished, and in no acute distress. HEAD: Normocephalic, atraumatic. NECK: Supple.no lymphadenopathy CHEST: Clear to auscultation. No respiratory distress.SAO2 98% on room air HEART: Regular rate and rhythm. No murmur heard. Normal peripheral pulses. ABDOMEN: Soft, nontender, nondistended, normal active bowel sounds. No CVA tenderness,urgency, dribbling, pain at start of stream, perineal pressure discomfort. EXTREMITIES: Normal range of motion. No edema. SKIN: Warm, dry, no rash. NEURO: No focal deficits. Alert and oriented x3. Course Course Emergency Course: Patient is aware of diagnosis, understands and agrees to treatment plan.? Anticipatory guidance given.? Patient agrees to follow-up as directed and is aware of reasons to seek care at the emergency department. Portions of this record may have been created with voice recognition software Level of Care: Express Care Visit Vital Signs Vital signs: Vital Signs Temperature 36.7 C 04/02/24 14:48 Pulse Rate 82 04/02/24 14:48 Respiratory Rate 20 04/02/24 14:48 Blood Pressure 140/88 04/02/24 14:48 Pulse Oximetry 98 04/02/24 14:48 Oxygen Delivery Room Air 04/02/24 14:48 Temperature 36.7 C 04/02/24 15:09 Pulse Rate 82 04/02/24 15:09 Respiratory Rate 20 04/02/24 15:09 Blood Pressure 140/88 04/02/24 14:48 Pulse Oximetry 98 04/02/24 15:09 Oxygen Delivery Room Air 04/02/24 15:09 MDM - Female Genitourinary MDM Narrative Medical decision making narrative: Exam findings and UA show no acute concerns or changes; patient is non-toxic appearing and is in no distress.? Patient is appropriate for outpatient treatment and follow-up. Differential Diagnosis Differential diagnosis: Likely urinary tract infection, cystitis and other (dysuria) Medical Records Attestation: I reviewed the patient's medical records. Lab Data Attestation: I reviewed the patient's lab results. Lab results narrative: see urine dip reviewed: urine cloudy blood 1+, nitrate positive, Leukocytes 3+ Labs: Lab Results 04/02/24 Range/Units 15:00 POC Urine Color Yellow POC Urine Clarity Cloudy POC Urine pH 7.0 POC Ur Specif [place] 1.020 POC Urine Protein 2+ (Negative) POC Ur Glucose (UA) Negative (Negative) POC Urine Ketones Negative (Negative) POC Urine Blood 1+ (Negative) POC Urine Nitrite Positive (Negative) POC Urine Bilirubin Negative (Negative) POC Urine Urobilinogen 0.2 POC U Leukocyte Esteras 3+ (Negative) reviewed Critical Care Time Critical Care Time Critical Care Time: No Discharge Plan Discharge Clinical Impression: UTI (urinary tract infection) Patient Disposition: Home, Self-Care Condition: Stable Instructions: Antibiotic Form, Urinary Tract Infection in Women (ED) Additional Instructions: Increase fluids especially cranberry juice and water Avoid caffeine and carbonated beverages Antibiotic as directed Medicine as directed--cautioned it will cause your urine to be bright orange Tylenol/ibuprofen for pain or fever Follow-up with her primary care provider if further problems or concerns Recheck if you have fever over 101, nausea and vomiting. If your symptoms persist, change or worsen significantly before you can contact your personal physician then please, without delay, go to the emergency department for further evaluation. Follow-up with PCP in 7-10 days or sooner if needed Follow up with PCP soon in regards to your blood pressure which is elevated above threshold for referral. Blood pressure above 120/80 may indicate pre- hypertension.140/88 Prescriptions: New cefuroxime axetil 250 mg tablet 250 mg PO Q12H Qty: 20 0RF No Action vilazodone 20 mg Tablet 20 mg PO DAILY Rx Instructions: must administer with a meal/food Jardiance 10 mg tablet 10 mg PO DAILY Entresto 49-51 mg tablet See Rx Instructions .ROUTE .COMPLEX Rx Instructions: as prescribed furosemide 40 mg tablet 40 mg PO .COMPLEX Qty: 180 1RF Rx Instructions: 1/2 in AM; one in PM diphenoxylate-atropine [Lomotil] 2.5-0.025 mg tablet 1 tablet PO QID PRN (Reason: diarrhea) Qty: 20 1RF potassium chloride 20 mEq tablet extended release 40 meq PO DAILY Qty: 180 1RF trazodone 100 mg tablet 100 mg PO QHS Qty: 90 1RF ursodiol 500 mg tablet 500 mg PO BID Qty: 180 2RF levothyroxine 175 mcg tablet 175 mcg PO DAILY Qty: 90 2RF albuterol sulfate 90 mcg/actuation HFA aerosol inhaler 2 puff inhalation Q4-6H PRN (Reason: shortness of breath or wheezing) Qty: 8.5 3RF metoprolol succinate 50 mg tablet extended release 24 hr 50 mg PO BID Qty: 180 2RF Follow-up/Referrals: Andrei Regan APRN [Primary Care Provider] - Time of Disposition: 15:54 Quality Anjali Coma Scale Eyes: Open Verbal: Oriented and Alert Motor: Follows Commands Anjali Coma Total Score: 15
[2024-04-02 16:02] LABS: EDUAAPPEAR Cloudy; EDUABILI Negative (Negative); EDUABLOOD 1+ (Negative); EDUACOLOR1 Yellow; EDUAGLUCOSE Negative (Negative); EDUAKETONE Negative (Negative); EDUALEUKO 3+ (Negative); EDUANITRATE Positive (Negative); EDUAPROTEIN 2+ (Negative); EDUAUROBILI 0.2
== END 2024-04-02 16:00 | disposition home or self-care (01) ==
PROVIDERS: Emergency Provider Registered Nurse; PCP Nurse Practitioner
DX: N39.0 Urinary tract infection, site not specified (principal); B96.89 Other specified bacterial agents as the cause of diseases classified elsewhere; F32.A Depression, unspecified
CPT/HCPCS: 81003; 87086; 87186; 99213; G0463

== ENCOUNTER 2024-04-10 12:02 | Emergency (ER) | payer MEDICARE, SELFPAY ==
--- NOTE | ~2024-04-10 | CT_ITS ---
EXAMINATION: CT abdomen pelvis wo con DATE: 04/10/2024 13:02 INDICATION: Dysuria. TECHNIQUE: Computed tomography (CT) of the abdomen and pelvis was performed without intravenous contr ast. Automated exposure control and iterative reconstruction technique were employed. The dose-length product was 773.98 mGy-cm. COMPARISON: CT abdomen and pelvis 01/05/2024 FINDINGS: The visualized portions of the lung bases demonstrate chronic septal thickening and bronchi ectasis. There are small pleural effusions. Cardiomegaly is noted. There are coronary artery calcific ations. No pericardial effusion. The liver demonstrates surface nodularity, consistent with cirrhosis . There are changes of cholecystectomy. The spleen, pancreas, and adrenal glands are normal. There ar e cysts in the kidneys measuring up to 12 mm on the right. There is no urolithiasis. There is an umbi lical hernia containing fat. There is an infraumbilical ventral hernia containing fat. There is diver ticulosis of the colon without evidence of diverticulitis. There are no dilated loops of bowel. The a ppendix is not visualized. There is calcified atherosclerosis of the aorta and many of the other magali josephine. There is an infiltrative calcified mass at the root of the small bowel mesentery measuring up t o 5.3 cm. There is severe thoracic and lumbar spondylosis. Lumbar levoscoliosis is noted. IMPRESSION: 1. No urolithiasis. 2. Chronic interstitial lung disease. 3. Small pleural effusions. 4. Cirrhosis of the liver. 5. Umbilical hernia and infraumbilical ventral hernia containing fat. 6. 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 Reviewed, dictated and finalized at location [facility] IMPRESSION: 1. No urolithiasis. 2. Chronic interstitial lung disease. 3. Small pleural effusions. 4. Cirrhosis of the liver. 5. Umbilical hernia and infraumbilical ventral hernia containing fat. 6. 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
[2024-04-10 12:05] VITALS: BP 186/90; PULSE 75; RESP 16; TEMP 36.6; O2SAT 96
[2024-04-10 12:11] VITALS: TEMP 36.9
--- NOTE | 2024-04-10 12:24 | ED.FEMALEGU ---
HPI - Female Genitourinary General Chief complaint: Urogenital-Female Stated complaint: UTI Time Seen by Provider: 04/10/24 12:10 History of Present Illness HPI Narrative: Patient was seen about a week ago and was started on antibiotics for UTI, since then she has continued to have persistent symptoms that have not improved. Related Data Home Medications Medication Instructions Recorded Confirmed vilazodone 20 mg tablet 20 mg PO DAILY 02/20/23 04/02/24 empagliflozin 10 mg tablet 10 mg PO DAILY 04/02/24 04/02/24 (Jardiance) sacubitril 49 mg-valsartan 51 mg See Rx Instructions .Route .COMPLEX 04/02/24 04/02/24 tablet (Entresto) Allergies Allergy/AdvReac Type Severity Reaction Status Date / Time Gadolinium-Containing Allergy Severe Chest Pain Verified 04/02/24 14:53 Contrast Medi adhesive tape Allergy Mild Rash Verified 04/02/24 14:53 ioversol Allergy Unknown Other Verified 04/02/24 14:53 morphine Allergy Unknown Liver Verified 04/02/24 14:53 function tests abnormal acetaminophen AdvReac Severe kidney Verified 04/02/24 14:53 stop working tramadol AdvReac Severe Other Verified 04/02/24 14:53 benzonatate AdvReac Unknown Headache Verified 04/02/24 14:53 codeine AdvReac Unknown Headache Verified 04/02/24 14:53 Review of Systems Review of Systems: All systems reviewed & are unremarkable except as noted in HPI and below PMFSH Past Medical History Medical History Depression Elevated alkaline phosphatase level Irregular heart beat Loss of balance Primary biliary cirrhosis Thyroid disease Surgical History Surgical History H/O: hysterectomy 1974 History of cholecystectomy 1997 History of knee replacement - 1997, 1998, 1999, 2001 History of tubal ligation 1973 Family History Family History Father Hypertension Cerebrovascular accident, Onset Age: 70 Patient's father is Mother Hypertension Family history of aortic aneurysm, Onset Age: 81 Sibling Hypertension Family history of diabetes mellitus in first degree relative Family history of coronary artery disease Family history of premature coronary heart disease Patient's brother is Family history of malignant neoplasm of brain Family history of type 2 diabetes mellitus Social History Social History Social History: Caffeine-daily Smoking status: Never smoker Second hand tobacco smoke exposure: No Alcohol intake: never Substance use: current Other substance usage details: CBD oil Lack of Transportation: No Lack of Food: Never True Current Housing: I Have Housing Concerned About Future Housing: No Difficulty Paying Gas/Electric Bills: No Difficulty Paying for Meds: No Currently Unemployed: No Education: High School Diploma/GED Difficulty w/ Childcare or Family Care: No Spiritual care concerns: No Course Course Emergency Course: EXAMINATION OF ORGAN SYSTEMS/BODY AREAS: Constitutional: Vital signs per nursing GENERAL:[No acute distress, non-toxic appearing.] HEAD: Normal with no signs of head trauma. EYES: EOMI, conjunctiva normal ENT: Hearing grossly intact LUNGS: Nonlabored breathing. HEART: [Regular rate and rhythm] ABD: [Soft], [nontender to palpation] EXT: Normal range of motion SKIN: [No rashes or lesions.] NEURO: [Alert and oriented x 3. No gross focal sensory or strength deficits.] PSYCH: Normal affect Vital Signs Vital signs: Vital Signs Temperature 97.8 F 04/10/24 12:05 Pulse Rate 75 04/10/24 12:05 Respiratory Rate 16 04/10/24 12:05 Blood Pressure 186/90 H 04/10/24 12:05 Pulse Oximetry 96 04/10/24 12:05 Oxygen Delivery Room Air 04/10/24 12:05 Temperature 98.4 F 04/10/24 12:11 Pulse Rate 64 04/10/24 13:34 Respiratory Rate 18 04/10/24 13:34 Blood Pressure 172/91 H 04/10/24 13:34 Pulse Oximetry 100 04/10/24 13:34 Oxygen Delivery Room Air 04/10/24 12:05 MDM - Female Genitourinary MDM Narrative Medical decision making narrative: patient presents with persistent dysuria, has taken cefuroxime without improvement despite taking it for 8 days. Was supposed to have CT done today but cannot make the appointment. I did review the urine culture, noted susceptibilities, when give her a dose of ceftriaxone here. Will obtain labs and a CT to rule out infected stone or something that is preventing effectiveness of her antibiotic. Labs and CT thankfully normal, I did discuss with patient who would like to be switched to a different antibiotic, I did notice that ciprofloxacin should be sensitive so she will be started on this with follow-up to her primary care doctor to make sure her symptoms clear. Patient was return precautions discussed Lab Data 04/10/24 12:28 04/10/24 12:28 Labs: Lab Results 04/10/24 04/10/24 Range/Units 12: 13:28 WBC 8.3 (4.5-10.0) K/mm3 RBC 4.26 (4.2-5.4) M/mm3 Hgb 13.0 (12.0-15.0) g/dL Hct 40.7 (37.0-47.0) % MCV 95.5 (80-100) fl MCH 30.5 (26-34) pg MCHC 31.9 L (32-36) g/dl RDW 15.3 H (11.5-14.5) % Plt Count 274 (150-375) k/mm3 MPV 9.3 (7.4-10.4) fl Immature Gran % (Auto) 0.6 H (0-0.5) % Neut % (Auto) 82.0 H (45.5-73.1) % Lymph % (Auto) 5.3 L (18.3-44.2) % [place] % (Auto) 8.5 (2.6-8.5) % Eos % (Auto) 3.0 (0-4.4) % Baso % (Auto) 0.6 (0.2-1.2) % Lymph # (Auto) 0.44 L (0.9-3.2) K/mm3 [place] # (Auto) 0.7 H (0.1-0.6) K/mm3 Eos # (Auto) 0.3 (0-0.3) K/mm3 Baso # (Auto) 0.1 (0.0-0.1) K/mm3 Abs Immat Gran (auto) 0.05 H (0.00-0.031) K/mm3 Absolute Neuts (auto) 6.8 H (1.3-6.7) K/mm3 Absolute Nucleated RBC 0.000 (0.0-0.012) K/mm3 Nucleated RBC % 0.0 (0.0-0.2) % Sodium 137 (137-145) mmol/L Potassium 4.1 (3.4-5.0) mmol/L Chloride 105 (98-107) mmol/L Carbon Dioxide 28 (22-30) mmol/L Anion Gap 4 (4-12) mmol/L BUN 12 (7-17) mg/dL Creatinine 0.80 (0.7-1.0) mg/dL Estim Creat Clear Calc Not Reportable Estimated GFR > 60 (59 - ) Glucose 95 (65-110) mg/dL Calcium 8.8 (8.4-10.2) mg/dL Urine Color Pending Urine Appearance Pending Urine pH Pending Ur Specific [place] Pending Urine Protein Pending Urine Glucose (UA) Pending Urine Ketones Pending Ur Blood (Man) Pending Urine Nitrate Pending Urine Bilirubin Pending Urine Urobilinogen Pending Leukocyte Esterase Rfl Pending Discharge Plan Discharge Clinical Impression: Acute UTI Patient Disposition: Home, Self-Care Condition: Stable Instructions: Antibiotic Form, Dysuria (ED) Additional Instructions: Please follow up with your doctor; you can always return for any further issues. Prescriptions: New ciprofloxacin HCl [Cipro] 500 mg tablet 500 mg PO Q12H Qty: 10 0RF No Action vilazodone 20 mg Tablet 20 mg PO DAILY Rx Instructions: must administer with a meal/food Jardiance 10 mg tablet 10 mg PO DAILY Entresto 49-51 mg tablet See Rx Instructions .ROUTE .COMPLEX Rx Instructions: as prescribed cefuroxime axetil 250 mg tablet 250 mg PO Q12H Qty: 20 0RF furosemide 40 mg tablet 40 mg PO .COMPLEX Qty: 180 1RF Rx Instructions: 1/2 in AM; one in PM diphenoxylate-atropine [Lomotil] 2.5-0.025 mg tablet 1 tablet PO QID PRN (Reason: diarrhea) Qty: 20 1RF potassium chloride 20 mEq tablet extended release 40 meq PO DAILY Qty: 180 1RF trazodone 100 mg tablet 100 mg PO QHS Qty: 90 1RF ursodiol 500 mg tablet 500 mg PO BID Qty: 180 2RF levothyroxine 175 mcg tablet 175 mcg PO DAILY Qty: 90 2RF albuterol sulfate 90 mcg/actuation HFA aerosol inhaler 2 puff inhalation Q4-6H PRN (Reason: shortness of breath or wheezing) Qty: 8.5 3RF metoprolol succinate 50 mg tablet extended release 24 hr 50 mg PO BID Qty: 180 2RF Follow-up/Referrals: Andrei Regan APRN [Primary Care Provider] - 2 Days
[2024-04-10] MEDS: cefTRIAXone 2 GM/NS 100 ML 2 GM/100 ML BAG IVPB (12:27)
[2024-04-10 12:34] LABS: Basophils Absolute Auto 0.1 K/mm3 (0.0-0.1); Basophils Percent Auto 0.6 % (0.2-1.2); Eosinophils Absolute Auto 0.3 K/mm3 (0-0.3); Hematocrit 40.7 % (37.0-47.0); Immature Granulocyte Absolute 0.05 K/mm3 (0.00-0.031); Immature Granulocyte Percent A 0.6 % (0-0.5); Lymphocytes Absolute Auto 0.44 K/mm3 (0.9-3.2); Lymphocytes Percent Auto 5.3 % (18.3-44.2); Mean Corpuscular HGB Conc 31.9 g/dl (32-36); Mean Corpuscular Hemoglobin 30.5 pg (26-34); Mean Corpuscular Volume 95.5 fl (80-100); Mean Platelet Volume 9.3 fl (7.4-10.4); Monocytes Absolute Auto 0.7 K/mm3 (0.1-0.6); Monocytes Percent Auto 8.5 % (2.6-8.5); Neutrophils Absolute Auto 6.8 K/mm3 (1.3-6.7); Platelet Count Result 274 k/mm3 (150-375); Red Blood Count 4.26 M/mm3 (4.2-5.4); Red Cell Distribution Width 15.3 % (11.5-14.5); White Blood Count 8.3 K/mm3 (4.5-10.0)
[2024-04-10 12:44] LABS: Anion Gap 4 mmol/L (4-12); Blood Urea Nitrogen 12 mg/dL (7-17); Calcium 8.8 mg/dL (8.4-10.2); Carbon Dioxide 28 mmol/L (22-30); Chloride 105 mmol/L (98-107); Estimated Glomerular Filt Rate > 60; Glucose 95 mg/dL (65-110); Potassium 4.1 mmol/L (3.4-5.0); Sodium 137 mmol/L (137-145)
[2024-04-10 13:34] VITALS: BP 172/91; PULSE 64; RESP 18; O2SAT 100
[2024-04-10 13:39] LABS: Add Urine Microscopic? YES; Appearance Urine Clear (Clear); Bacteria Urine None Seen /hpf; Bilirubin Urine Negative (Negative); Blood Urine Negative (Negative); Color Urine Yellow (Yellow); Glucose Urine UA Negative (Negative); Ketones Urine Negative (Negative); Leukocyte Esterase Ur 2+ LEU/UL (Negative); Nitrate Urine Negative (Negative); Non Pathogenic Casts 0-2; Protein Urine Negative (Negative); RBC Urine 0-2 /hpf (0-2); Specific Grav Ur 1.008 (1.001-1.035); Squamous Epithelial Cell Urine None Seen /hpf (Few); Urobilinogen Urine 0.2 mg/dL (<2.0); WBC Urine 51-100 /hpf (0-3); pH Urine 6.5 (5.0-9.0)
== END 2024-04-10 13:36 | disposition home or self-care (01) ==
PROVIDERS: Emergency Provider Emergency Medicine; PCP Nurse Practitioner
DX: N39.0 Urinary tract infection, site not specified (principal); E07.9 Disorder of thyroid, unspecified; K74.3 Primary biliary cirrhosis; F32.A Depression, unspecified; Z96.659 Presence of unspecified artificial knee joint; Z90.710 Acquired absence of both cervix and uterus; Z90.49 Acquired absence of other specified parts of digestive tract; Z79.84 Long term (current) use of oral hypoglycemic drugs; Z79.899 Other long term (current) drug therapy; J84.9 Interstitial pulmonary disease, unspecified; K42.9 Umbilical hernia without obstruction or gangrene; K43.9 Ventral hernia without obstruction or gangrene; K63.9 Disease of intestine, unspecified
CPT/HCPCS: 36415; 74176; 80048; 81001; 85025; 87086; 96365; 99284; J0696

== ENCOUNTER 2024-04-18 09:39 | Inpatient (IN) | payer MEDICARE, SELFPAY ==
--- NOTE | ~2024-04-18 | XR_ITS ---
XR chest 2V Ordering provider: Evy Chin PA-C History: 84 years Female with . CHEST PAIN AND RAPID HEART RATE TODAY, HX OF AFIB . Comparison: None. FINDINGS: MEDIASTINUM: The cardiac silhouette is moderately enlarged. Congestive kim. LUNGS: No infiltrates, effusions or pneumothorax. OTHER: No free air under the diaphragm. Degenerative changes of the spine. IMPRESSION: No acute cardiopulmonary pathology. Reviewed, dictated and finalized at location A. BOSCOPE OPERATOR
--- NOTE | ~2024-04-18 | XR_ITS ---
EXAMINATION: XR chest 1V portable DATE: 04/20/2024 07:52 INDICATION: Shortness of breath. TECHNIQUE: A single frontal view of the chest was obtained. COMPARISON: Chest 2 views 04/18/2024, CT abdomen and pelvis 04/10/2024 FINDINGS: There are small pleural effusions. No pneumonia or pneumothorax. Cardiomegaly is noted. IMPRESSION: 1. Small pleural effusions. 2. Cardiomegaly. Reviewed, dictated and finalized at location A. ALING FURNACE OPERATOR
[2024-04-18 09:44] VITALS: BP 176/91; PULSE 79; RESP 16; TEMP 36.4; O2SAT 97
--- NOTE | 2024-04-18 12:31 | ECG_ITS ---
Test Date: 2024-04-18 14:25:12 Measurements Intervals [place] Rate: 61 P: 0 [place]: 0 QRS: -40 QRSD: 121 T: 81 QT: 430 QTc: 435 Interpretive Statements ATRIAL FIBRILLATION WITH ABERRANT CONDUCTION OR VENTRICULAR PREMATURE COMPLEX LEFT AXIS DEVIATION INTRAVENTRICULAR CONDUCTION DELAY LEFT VENTRICULAR HYPERTROPHYWITH ST-T CHANGE CONSIDER ANTERIOR INFARCT, AGE INDETERMINATE BASELINE ARTIFACT- I, II, III, AVR, AVL ABNORMAL ECG Compared to ECG 01/14/2024 16:45:18 NO SIGNIFICANT CHANGE Electronically Signed On 04-18-2024 14:31:22 [employer] by Donte Esqueda D.O.
--- NOTE | 2024-04-18 12:32 | ED_ITS ---
HPI - Arrhythmia/Palpitations General Chief Complaint: Arrhythmia/Palpitations <Evy Chin PA-C - Last Filed: 04/20/24 09:17> Stated Complaint: my heart <Evy Chin PA-C - Last Filed: 04/20/24 09:17> Time Seen by Provider: 04/18/24 12:32 <Evy Chin PA-C - Last Filed: 04/20/24 09:17> Focused HPI: This is a 84 year old female that presents to the ER for chest pain. Reports pressure in her chest, shortness of breath, feels like her heart is racing. Started this morning when waking up. Reports lower extremity edema. 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 GENERAL: Elderly, well-nourished, and in no acute distress. HEAD: Normocephalic, atraumatic. CHEST: Clear to auscultation. ?No respiratory distress. HEART: Regular rate and rhythm.? NEURO: ?Alert and oriented x3. Patient screened in triage and initial orders placed.? ?Additional care and disposition to be based upon?diagnostic testing and treatment. <Evy Chin PA-C - Last Filed: 04/20/24 09:17> History of Present Illness HPI narrative: 84-year-old female presenting with palpitations. States that she feels like her AFib has been acting up. States that she had severe palpitations earlier this morning associated with lightheadedness, shortness of breath, chest heaviness. States that her legs have been more swollen than normal and she has been increasingly weak. No further complaints. <Jacki Johnson MD - Last Filed: 04/18/24 21:36> Related Data Home Medications: Home Medications Medication Instructions Recorded Confirmed vilazodone 20 mg tablet 20 mg PO DAILY 02/20/23 04/18/24 <Evy Chin PA-C - Last Filed: 04/20/24 09:17> Allergies/Adverse Reactions: Allergies Allergy/AdvReac Type Severity Reaction Status Date / Time Gadolinium-Containing Allergy Severe Chest Pain Verified 04/18/24 13:47 Contrast Medi adhesive tape Allergy Mild Rash Verified 04/18/24 13:47 ioversol Allergy Unknown Other Verified 04/18/24 13:47 morphine Allergy Unknown Liver Verified 04/18/24 13:47 function tests abnormal acetaminophen AdvReac Severe kidney Verified 04/18/24 13:47 stop working tramadol AdvReac Severe Other Verified 04/18/24 13:47 benzonatate AdvReac Unknown Headache Verified 04/18/24 13:47 codeine AdvReac Unknown Headache Verified 04/18/24 13:47 <Evy Chin PA-C - Last Filed: 04/20/24 09:17> Review of Systems Review of Systems: All systems reviewed & are unremarkable except as noted in HPI and below <Jacki Johnson MD - Last Filed: 04/18/24 21:36> [facility] Past Medical History Medical History: Medical History Actinic keratosis Anxiety and depression CKD (chronic kidney disease) History of basal cell carcinoma (BCC) Chin HOCM (hypertrophic obstructive cardiomyopathy) Hyperlipidemia Hypertension Hypothyroidism Interstitial pulmonary fibrosis Meniere disease PAF (paroxysmal atrial fibrillation) Primary biliary cirrhosis Rectocele Shingles Sjogren syndrome Vertigo Vitamin D deficiency <Evy Chin PA-C - Last Filed: 04/20/24 09:17> Surgical History Surgical History: Surgical History H/O: hysterectomy 1974 History of bladder surgery bladder suspension History of cholecystectomy 1996 History of knee replacement - 1997, 1998, 1999, 2001 History of tubal ligation 1972 <Evy Chin PA-C - Last Filed: 04/20/24 09:17> Family History Family History: Family History Father Hypertension Cerebrovascular accident, Onset Age: 70 Patient's father is Mother Hypertension Family history of aortic aneurysm, Onset Age: 81 Sibling Hypertension Family history of diabetes mellitus in first degree relative Family history of coronary artery disease Family history of premature coronary heart disease Patient's brother is Family history of malignant neoplasm of brain Family history of type 2 diabetes mellitus <Evy Chin PA-C - Last Filed: 04/20/24 09:17> Social History Social History: Social History Social History: Caffeine-daily Smoking status: Never smoker Second hand tobacco smoke exposure: No Alcohol intake: never Substance use: current Other substance usage details: CBD oil Do You Feel Safe in your Home?: Yes Lack of Transportation: No Lack of Food: Never True Current Housing: I Have Housing Concerned About Future Housing: No Difficulty Paying Gas/Electric Bills: No Difficulty Paying for Meds: No Currently Unemployed: No Education: High School Diploma/GED Difficulty w/ Childcare or Family Care: No Spiritual care concerns: No <Evy Chin PA-C - Last Filed: 04/20/24 09:17> Exam Narrative: GENERAL: Nontoxic, no acute distress, pleasant cooperative HEAD: Normocephalic, atraumatic. EYES: PERRLA and EOMI. ENT: Mucous membranes dry NECK: Supple. CHEST: Clear to auscultation. No respiratory distress. HEART: irregular rhythm, regular rate ABDOMEN: Soft, nontender, nondistended EXTREMITIES: Normal range of motion.2+ Pitting edema up to mid calves SKIN: Warm, dry, no rash. NEURO: Alert and oriented x3. PSYCH: Normal mood and affect. <Evy Chin PA-C - Last Filed: 04/20/24 09:17> GENERAL: Nontoxic, no acute distress, pleasant cooperative HEAD: Normocephalic, atraumatic. EYES: PERRLA and EOMI. ENT: Mucous membranes dry NECK: Supple. CHEST: Clear to auscultation. No respiratory distress. HEART: irregular rhythm, regular rate ABDOMEN: Soft, nontender, nondistended EXTREMITIES: Normal range of motion.2+ Pitting edema up to mid calves SKIN: Warm, dry, no rash. NEURO: Alert and oriented x3. PSYCH: Normal mood and affect. <Jacki Johnson MD - Last Filed: 04/18/24 21:36> Course Vital Signs Vital signs: Vital Signs Temperature 97.5 F L 04/18/24 09:44 Pulse Rate 79 04/18/24 09:44 Respiratory Rate 16 04/18/24 09:44 Blood Pressure 176/91 H 04/18/24 09:44 Pulse Oximetry 97 04/18/24 09:44 Temperature 97.6 F 04/20/24 05:07 Pulse Rate 85 04/20/24 05:07 Respiratory Rate 20 04/20/24 05:07 Blood Pressure 148/82 H 04/20/24 05:07 Pulse Oximetry 95 04/20/24 05:07 Oxygen Delivery Room Air 04/19/24 08:00 <Evy Chin PA-C - Last Filed: 04/20/24 09:17> Vital Signs Temperature 97.5 F L 04/18/24 09:44 Pulse Rate 79 04/18/24 09:44 Respiratory Rate 16 04/18/24 09:44 Blood Pressure 176/91 H 04/18/24 09:44 Pulse Oximetry 97 04/18/24 09:44 Temperature 97.6 F 04/20/24 05:07 Pulse Rate 85 04/20/24 05:07 Respiratory Rate 20 04/20/24 05:07 Blood Pressure 148/82 H 04/20/24 05:07 Pulse Oximetry 95 04/20/24 05:07 Oxygen Delivery Room Air 04/19/24 08:00 <Jacki Johnson MD - Last Filed: 04/18/24 21:36> MDM - Arrhythmia/Palpitations MDM Narrative Medical decision making narrative: 84-year-old female presenting with dyspnea, palpitations, chest pressure. vitals are within normal limits. Exam remarkable for the above. EKG per my interpretation shows AFib, rate controlled, nonspecific ST changes, no ST elevations. Blood work with proBNP of 6300. Troponin is 0.023. On re-evaluation, the patient is resting comfortably. She states that she stop taking her Lasix a couple months ago because she felt it was not helping her. Feel she would benefit from admission for diuresis. She is agreeable with this plan. I spoke with the hospitalist who has accepted her for admission. <Jacki Johnson MD - Last Filed: 04/18/24 21:36> Differential Diagnosis Differential diagnosis: Likely palpitations, artial fibrillation and other ( CHF exacerbation, shortness of breath) <Jacki Johnson MD - Last Filed: 04/18/24 21:36> Medical Records Attestation: I reviewed the patient's medical records. <Jacki Johnson MD - Last Filed: 04/18/24 21:36> Lab Data Attestation: I reviewed the patient's lab results. <Jacki Johnson MD - Last Filed: 04/18/24 21:36> Result diagrams: 04/20/24 06:40 04/20/24 06:40 <Evy Chin PA-C - Last Filed: 04/20/24 09:17> Labs: Lab Results 04/18/24 04/18/24 04/18/24 Range/Units 13:36 15:45 16:42 WBC 7.3 (4.5-10.0) K/mm3 RBC 4.34 (4.2-5.4) M/mm3 Hgb 13.3 (12.0-15.0) g/dL Hct 41.6 (37.0-47.0) % MCV 95.9 (80-100) fl MCH 30.6 (26-34) pg MCHC 32.0 (32-36) g/dl RDW 15.2 H (11.5-14.5) % Plt Count 284 (150-375) k/mm3 MPV 9.3 (7.4-10.4) fl Immature Gran % (Auto) 0.3 (0-0.5) % Neut % (Auto) 78.3 H (45.5-73.1) % Lymph % (Auto) 7.3 L (18.3-44.2) % Harmon % (Auto) 10.6 H (2.6-8.5) % Eos % (Auto) 2.9 (0-4.4) % Baso % (Auto) 0.6 (0.2-1.2) % Lymph # (Auto) 0.53 L (0.9-3.2) K/mm3 Harmon # (Auto) 0.8 H (0.1-0.6) K/mm3 Eos # (Auto) 0.2 (0-0.3) K/mm3 Baso # (Auto) 0.0 (0.0-0.1) K/mm3 Abs Immat Gran (auto) 0.02 (0.00-0.031) K/mm3 Absolute Neuts (auto) 5.7 (1.3-6.7) K/mm3 Absolute Nucleated RBC 0.000 (0.0-0.012) K/mm3 Nucleated RBC % 0.0 (0.0-0.2) % PT 14.5 (11.1-14.7) Seconds INR 1.1 APTT 28.2 (22.3-36.8) Seconds Sodium 136 L (137-145) mmol/L Potassium 4.1 (3.4-5.0) mmol/L Chloride 105 (98-107) mmol/L Carbon Dioxide 28 (22-30) mmol/L Anion Gap 3 L (4-12) mmol/L BUN 11 (7-17) mg/dL Creatinine 1.00 (0.7-1.0) mg/dL Estim Creat Clear Calc 41 ml/min Estimated GFR 53 L (59 - ) Glucose 94 (65-110) mg/dL Calcium 8.7 (8.4-10.2) mg/dL Phosphorus (2.5-4.5) mg/dL Magnesium (1.6-2.3) mg/dL Total Bilirubin 0.9 (0.2-1.3) mg/dL AST 32 (14-36) U/L ALT 18 (6-35) U/L Alkaline Phosphatase 178 H (38-126) U/L Troponin I 0.023 0.025 (0.000-0.034) ng/mL NT-Pro-B Natriuret Pep 6380 H (19.9-100) pg/mL Total Protein 7.0 (6.3-8.2) g/dL Albumin 3.7 (3.5-5.1) g/dL Lipase 71 (23-300) U/L Urine Color Yellow (Yellow) Urine Appearance Clear (Clear) Urine pH 6.5 (5.0-9.0) Ur Specific [place] 1.008 (1.001-1.035) Urine Protein Negative (Negative) mg/dL Urine Glucose (UA) Negative (Negative) mg/dL Urine Ketones Negative (Negative) mg/dL Ur Blood (Man) Negative (Negative) Urine Nitrate Negative (Negative) Urine Bilirubin Negative (Negative) Urine Urobilinogen 0.2 (<2.0) mg/dL Leukocyte Esterase Rfl Negative (Negative) REX/UL 04/19/24 Range/Units 06:54 WBC 7.5 (4.5-10.0) K/mm3 RBC 4.18 L (4.2-5.4) M/mm3 Hgb 12.7 (12.0-15.0) g/dL Hct 40.0 (37.0-47.0) % MCV 95.7 (80-100) fl MCH 30.4 (26-34) pg MCHC 31.8 L (32-36) g/dl RDW 15.1 H (11.5-14.5) % Plt Count 248 (150-375) k/mm3 MPV 9.7 (7.4-10.4) fl Immature Gran % (Auto) 0.4 (0-0.5) % Neut % (Auto) 83.5 H (45.5-73.1) % Lymph % (Auto) 5.3 L (18.3-44.2) % Harmon % (Auto) 8.8 H (2.6-8.5) % Eos % (Auto) 1.5 (0-4.4) % Baso % (Auto) 0.5 (0.2-1.2) % Lymph # (Auto) 0.40 L (0.9-3.2) K/mm3 Harmon # (Auto) 0.7 H (0.1-0.6) K/mm3 Eos # (Auto) 0.1 (0-0.3) K/mm3 Baso # (Auto) 0.0 (0.0-0.1) K/mm3 Abs Immat Gran (auto) 0.03 (0.00-0.031) K/mm3 Absolute Neuts (auto) 6.3 (1.3-6.7) K/mm3 Absolute Nucleated RBC 0.000 (0.0-0.012) K/mm3 Nucleated RBC % 0.0 (0.0-0.2) % PT (11.1-14.7) Seconds INR APTT (22.3-36.8) Seconds Sodium 135 L (137-145) mmol/L Potassium 3.8 (3.4-5.0) mmol/L Chloride 101 (98-107) mmol/L Carbon Dioxide 32 H (22-30) mmol/L Anion Gap 2 L (4-12) mmol/L BUN 12 (7-17) mg/dL Creatinine 1.10 H (0.7-1.0) mg/dL Estim Creat Clear Calc 37 ml/min Estimated GFR 48 L (59 - ) Glucose 98 (65-110) mg/dL Calcium 8.4 (8.4-10.2) mg/dL Phosphorus 3.7 (2.5-4.5) mg/dL Magnesium 2.1 (1.6-2.3) mg/dL Total Bilirubin 0.9 (0.2-1.3) mg/dL AST 32 (14-36) U/L ALT 17 (6-35) U/L Alkaline Phosphatase 161 H (38-126) U/L Troponin I (0.000-0.034) ng/mL NT-Pro-B Natriuret Pep (19.9-100) pg/mL Total Protein 6.0 L (6.3-8.2) g/dL Albumin 3.4 L (3.5-5.1) g/dL Lipase (23-300) U/L Urine Color (Yellow) Urine Appearance (Clear) Urine pH (5.0-9.0) Ur Specific [place] (1.001-1.035) Urine Protein (Negative) mg/dL Urine Glucose (UA) (Negative) mg/dL Urine Ketones (Negative) mg/dL Ur Blood (Man) (Negative) Urine Nitrate (Negative) Urine Bilirubin (Negative) Urine Urobilinogen (<2.0) mg/dL Leukocyte Esterase Rfl (Negative) REX/UL <Evy Chin PA-C - Last Filed: 04/20/24 09:17> Lab Results 04/18/24 04/18/24 04/18/24 Range/Units 13:36 15:45 16:42 WBC 7.3 (4.5-10.0) K/mm3 RBC 4.34 (4.2-5.4) M/mm3 Hgb 13.3 (12.0-15.0) g/dL Hct 41.6 (37.0-47.0) % MCV 95.9 (80-100) fl MCH 30.6 (26-34) pg MCHC 32.0 (32-36) g/dl RDW 15.2 H (11.5-14.5) % Plt Count 284 (150-375) k/mm3 MPV 9.3 (7.4-10.4) fl Immature Gran % (Auto) 0.3 (0-0.5) % Neut % (Auto) 78.3 H (45.5-73.1) % Lymph % (Auto) 7.3 L (18.3-44.2) % Harmon % (Auto) 10.6 H (2.6-8.5) % Eos % (Auto) 2.9 (0-4.4) % Baso % (Auto) 0.6 (0.2-1.2) % Lymph # (Auto) 0.53 L (0.9-3.2) K/mm3 Harmon # (Auto) 0.8 H (0.1-0.6) K/mm3 Eos # (Auto) 0.2 (0-0.3) K/mm3 Baso # (Auto) 0.0 (0.0-0.1) K/mm3 Abs Immat Gran (auto) 0.02 (0.00-0.031) K/mm3 Absolute Neuts (auto) 5.7 (1.3-6.7) K/mm3 Absolute Nucleated RBC 0.000 (0.0-0.012) K/mm3 Nucleated RBC % 0.0 (0.0-0.2) % PT 14.5 (11.1-14.7) Seconds INR 1.1 APTT 28.2 (22.3-36.8) Seconds Sodium 136 L (137-145) mmol/L Potassium 4.1 (3.4-5.0) mmol/L Chloride 105 (98-107) mmol/L Carbon Dioxide 28 (22-30) mmol/L Anion Gap 3 L (4-12) mmol/L BUN 11 (7-17) mg/dL Creatinine 1.00 (0.7-1.0) mg/dL Estim Creat Clear Calc 41 ml/min Estimated GFR 53 L (59 - ) Glucose 94 (65-110) mg/dL Calcium 8.7 (8.4-10.2) mg/dL Phosphorus (2.5-4.5) mg/dL Magnesium (1.6-2.3) mg/dL Total Bilirubin 0.9 (0.2-1.3) mg/dL AST 32 (14-36) U/L ALT 18 (6-35) U/L Alkaline Phosphatase 178 H (38-126) U/L Troponin I 0.023 0.025 (0.000-0.034) ng/mL NT-Pro-B Natriuret Pep 6380 H (19.9-100) pg/mL Total Protein 7.0 (6.3-8.2) g/dL Albumin 3.7 (3.5-5.1) g/dL Lipase 71 (23-300) U/L Urine Color Yellow (Yellow) Urine Appearance Clear (Clear) Urine pH 6.5 (5.0-9.0) Ur Specific [place] 1.008 (1.001-1.035) Urine Protein Negative (Negative) mg/dL Urine Glucose (UA) Negative (Negative) mg/dL Urine Ketones Negative (Negative) mg/dL Ur Blood (Man) Negative (Negative) Urine Nitrate Negative (Negative) Urine Bilirubin Negative (Negative) Urine Urobilinogen 0.2 (<2.0) mg/dL Leukocyte Esterase Rfl Negative (Negative) REX/UL 11/14/24 Range/Units 06:54 WBC 7.5 (4.5-10.0) K/mm3 RBC 4.18 L (4.2-5.4) M/mm3 Hgb 12.7 (12.0-15.0) g/dL Hct 40.0 (37.0-47.0) % MCV 95.7 (80-100) fl MCH 30.4 (26-34) pg MCHC 31.8 L (32-36) g/dl RDW 15.1 H (11.5-14.5) % Plt Count 248 (150-375) k/mm3 MPV 9.7 (7.4-10.4) fl Immature Gran % (Auto) 0.4 (0-0.5) % Neut % (Auto) 83.5 H (45.5-73.1) % Lymph % (Auto) 5.3 L (18.3-44.2) % Harmon % (Auto) 8.8 H (2.6-8.5) % Eos % (Auto) 1.5 (0-4.4) % Baso % (Auto) 0.5 (0.2-1.2) % Lymph # (Auto) 0.40 L (0.9-3.2) K/mm3 Harmon # (Auto) 0.7 H (0.1-0.6) K/mm3 Eos # (Auto) 0.1 (0-0.3) K/mm3 Baso # (Auto) 0.0 (0.0-0.1) K/mm3 Abs Immat Gran (auto) 0.03 (0.00-0.031) K/mm3 Absolute Neuts (auto) 6.3 (1.3-6.7) K/mm3 Absolute Nucleated RBC 0.000 (0.0-0.012) K/mm3 Nucleated RBC % 0.0 (0.0-0.2) % PT (11.1-14.7) Seconds INR APTT (22.3-36.8) Seconds Sodium 135 L (137-145) mmol/L Potassium 3.8 (3.4-5.0) mmol/L Chloride 101 (98-107) mmol/L Carbon Dioxide 32 H (22-30) mmol/L Anion Gap 2 L (4-12) mmol/L BUN 12 (7-17) mg/dL Creatinine 1.10 H (0.7-1.0) mg/dL Estim Creat Clear Calc 37 ml/min Estimated GFR 48 L (59 - ) Glucose 98 (65-110) mg/dL Calcium 8.4 (8.4-10.2) mg/dL Phosphorus 3.7 (2.5-4.5) mg/dL Magnesium 2.1 (1.6-2.3) mg/dL Total Bilirubin 0.9 (0.2-1.3) mg/dL AST 32 (14-36) U/L ALT 17 (6-35) U/L Alkaline Phosphatase 161 H (38-126) U/L Troponin I (0.000-0.034) ng/mL NT-Pro-B Natriuret Pep (19.9-100) pg/mL Total Protein 6.0 L (6.3-8.2) g/dL Albumin 3.4 L (3.5-5.1) g/dL Lipase (23-300) U/L Urine Color (Yellow) Urine Appearance (Clear) Urine pH (5.0-9.0) Ur Specific [place] (1.001-1.035) Urine Protein (Negative) mg/dL Urine Glucose (UA) (Negative) mg/dL Urine Ketones (Negative) mg/dL Ur Blood (Man) (Negative) Urine Nitrate (Negative) Urine Bilirubin (Negative) Urine Urobilinogen (<2.0) mg/dL Leukocyte Esterase Rfl (Negative) REX/UL <Jacki Johnson MD - Last Filed: 04/18/24 21:36> Imaging Data Radiologist's impression: ITS Impressions Chest X-Ray 04/18/24 13:15 IMPRESSION: No acute cardiopulmonary pathology. <Jacki Johnson MD - Last Filed: 04/18/24 21:36> ECG Data EKG #1: ECG completion date: 04/18/24 <Evy Chin PA-C - Last Filed: 04/20/24 09:17> EKG Interpretation: normal rate, atrial fibrillation and no acute changes (Compared to EKG ) <Evy Chin PA-C - Last Filed: 04/20/24 09:17> Critical Care Time Critical Care Time Critical Care Time: No <Jacki Johnson MD - Last Filed: 04/18/24 21:36> Discharge Plan Discharge Clinical Impression: Volume overload, Atrial fibrillation with normal ventricular rate, Dyspnea <Evy Chin PA-C - Last Filed: 04/20/24 09:17> Patient Disposition: Still a Patient <Evy Chin PA-C - Last Filed: 04/20/24 09:17> Condition: Stable <Evy Chin PA-C - Last Filed: 04/20/24 09:17>
[2024-04-18 13:45] VITALS: BP 188/97; PULSE 77; RESP 27; O2SAT 97
[2024-04-18 13:47] VITALS: PULSE 61
[2024-04-18 13:47] LABS: Basophils Percent Auto 0.6 % (0.2-1.2); Eosinophils Absolute Auto 0.2 K/mm3 (0-0.3); Eosinophils Percent Auto 2.9 % (0-4.4); Hematocrit 41.6 % (37.0-47.0); Hemoglobin 13.3 g/dL (12.0-15.0); Immature Granulocyte Absolute 0.02 K/mm3 (0.00-0.031); Immature Granulocyte Percent A 0.3 % (0-0.5); Lymphocytes Absolute Auto 0.53 K/mm3 (0.9-3.2); Lymphocytes Percent Auto 7.3 % (18.3-44.2); Mean Corpuscular Hemoglobin 30.6 pg (26-34); Mean Corpuscular Volume 95.9 fl (80-100); Mean Platelet Volume 9.3 fl (7.4-10.4); Monocytes Absolute Auto 0.8 K/mm3 (0.1-0.6); Monocytes Percent Auto 10.6 % (2.6-8.5); Neutrophils Absolute Auto 5.7 K/mm3 (1.3-6.7); Neutrophils Percent Auto 78.3 % (45.5-73.1); Platelet Count Result 284 k/mm3 (150-375); Red Blood Count 4.34 M/mm3 (4.2-5.4); Red Cell Distribution Width 15.2 % (11.5-14.5); White Blood Count 7.3 K/mm3 (4.5-10.0)
[2024-04-18 13:59] LABS: Alanine Aminotransferase 18 U/L (6-35); Albumin Level 3.7 g/dL (3.5-5.1); Alkaline Phosphatase 178 U/L (38-126); Anion Gap 3 mmol/L (4-12); Aspartate Amino Transferase 32 U/L (14-36); Bilirubin,Total 0.9 mg/dL (0.2-1.3); Blood Urea Nitrogen 11 mg/dL (7-17); Calcium 8.7 mg/dL (8.4-10.2); Carbon Dioxide 28 mmol/L (22-30); Chloride 105 mmol/L (98-107); Estimated CRCL calculation 41 ml/min; Estimated Glomerular Filt Rate 53; Glucose 94 mg/dL (65-110); Lipase 71 U/L (23-300); Potassium 4.1 mmol/L (3.4-5.0); Sodium 136 mmol/L (137-145)
[2024-04-18 14:02] LABS: INR 1.1; Partial Thromboplastin Time 28.2 Seconds (22.3-36.8); Prothrombin Time 14.5 Seconds (11.1-14.7)
[2024-04-18 14:11] LABS: Troponin I 0.023 ng/mL (0.000-0.034)
[2024-04-18 14:14] LABS: NT Pro B Type Natriuretic Pept 6380 pg/mL (19.9-100)
[2024-04-18 14:57] VITALS: BP 175/92; PULSE 60; RESP 23; O2SAT 95
[2024-04-18] MEDS: FUROSEMIDE INJ 40 MG/4 ML VIAL IV PUSH ×2 (15:39→19:23)
[2024-04-18 15:56] LABS: Add Urine Microscopic? NO; Appearance Urine Clear (Clear); Bilirubin Urine Negative (Negative); Blood Urine Negative (Negative); Color Urine Yellow (Yellow); Glucose Urine UA Negative (Negative); Ketones Urine Negative (Negative); Leukocyte Esterase Ur Negative LEU/UL (Negative); Nitrate Urine Negative (Negative); Protein Urine Negative (Negative); Specific Grav Ur 1.008 (1.001-1.035); Urobilinogen Urine 0.2 mg/dL (<2.0); pH Urine 6.5 (5.0-9.0)
[2024-04-18 17:10] LABS: Troponin I 0.025 ng/mL (0.000-0.034)
--- NOTE | 2024-04-18 17:40 | P.HP_ITS ---
H&P: HPI History of Present Illness Date/Time: 04/18/24 17:40 Chief Complaint: Weakness, Shortness of Breath Narrative: 84 y/o F presents here with generalized weakness and shortness of breath with PMH of depression and thyroid disease. The patient presents here from home for further evaluation of generalized weakness, chest discomfort, palpitations, and shortness of breath. She reports onset of the symptoms this morning upon awakening. She describes the chest discomfort as bilateral upper/mid chest, squeezing/pressure more so than pain, nonradiating, constant, lasted for 5-10 minutes, and no aggravating or alleviating factors. The symptoms are also accompanied by worsening lower extremity edema, has been ongoing since 1 week ago. Also experiencing weight gain, unsure on amount, and has been going on for the past few weeks. Patient was initially concerned she was back in AFib given the palpitations and lightheadedness. However, initial EKG showed rate controlled AFib. Of note, patient does report that she self discontinued her Lasix 6 months ago citing that it I was feeling really bad and I thought to see if the Lasix was causing a problem. I did feel better when I quit. Further elaborated that the feeling bad was fatigue and general malaise. Patient follows with a tooth inspector, Leora COLMENARES. Initial VS at presentation: 97.5? F, HR 79, RR 16, 176/91, and 97% on RA. ED workup showed: No leukocytosis, no anemia, normal coags, no significant electrolyte derangements, creatinine 1.0 and GFR 53, BNP 6380, initial troponin 0.023, and UA unremarkable. CXR showed no acute cardiopulmonary pathology. Review of Systems Review of Systems: All systems reviewed & are unremarkable except as noted in HPI and below [facility] Past Medical History Medical History Actinic keratosis Anxiety and depression CKD (chronic kidney disease) History of basal cell carcinoma (BCC) Chin HOCM (hypertrophic obstructive cardiomyopathy) Hyperlipidemia Hypertension Hypothyroidism Interstitial pulmonary fibrosis Meniere disease PAF (paroxysmal atrial fibrillation) Primary biliary cirrhosis Rectocele Shingles Sjogren syndrome Vertigo Vitamin D deficiency Surgical History Surgical History H/O: hysterectomy 1974 History of bladder surgery bladder suspension History of cholecystectomy 1996 History of knee replacement - 1997, 1998, 1999, 2001 History of tubal ligation 1973 Family History Family History Father Hypertension Cerebrovascular accident, Onset Age: 70 Patient's father is Mother Hypertension Family history of aortic aneurysm, Onset Age: 81 Sibling Hypertension Family history of diabetes mellitus in first degree relative Family history of coronary artery disease Family history of premature coronary heart disease Patient's brother is Family history of malignant neoplasm of brain Family history of type 2 diabetes mellitus Social History Social History Social History: Caffeine-daily Smoking status: Never smoker Second hand tobacco smoke exposure: No Alcohol intake: never Substance use: current Other substance usage details: CBD oil Do You Feel Safe in your Home?: Yes Lack of Transportation: No Lack of Food: Never True Current Housing: I Have Housing Concerned About Future Housing: No Difficulty Paying Gas/Electric Bills: No Difficulty Paying for Meds: No Currently Unemployed: No Education: High School Diploma/GED Difficulty w/ Childcare or Family Care: No Spiritual care concerns: No Meds Home Medications and Allergies Home Medications Medication Instructions Recorded Confirmed Type vilazodone 20 mg tablet 20 mg PO DAILY 02/20/23 04/18/24 History diphenoxylate-atropine 2.5 1 tablet PO QID PRN diarrhea #20 01/18/24 04/18/24 Rx mg-0.025 mg tablet (Lomotil) tabs potassium chloride 20 mEq 40 meq PO DAILY #180 tabs 01/30/24 04/18/24 Rx tablet,extended release trazodone 100 mg tablet 100 mg PO QHS #90 tabs 01/30/24 04/18/24 Rx ursodiol 500 mg tablet 500 mg PO BID #180 tabs 01/30/24 04/18/24 Rx levothyroxine 175 mcg tablet 175 mcg PO DAILY #90 tabs 02/16/24 04/18/24 Rx albuterol sulfate 90 mcg/actuation 2 puff inhalation Q4-6H PRN 02/28/24 04/18/24 Rx aerosol inhaler shortness of breath or wheezing #8.5 grams metoprolol succinate 50 mg 50 mg PO BID #180 tabs 10/04/24 11/13/24 Rx tablet,extended release 24 hr Allergies Allergy/AdvReac Type Severity Reaction Status Date / Time Gadolinium-Containing Allergy Severe Chest Pain Verified 04/18/24 13:47 Contrast Medi adhesive tape Allergy Mild Rash Verified 04/18/24 13:47 ioversol Allergy Unknown Other Verified 04/18/24 13:47 morphine Allergy Unknown Liver Verified 04/18/24 13:47 function tests abnormal acetaminophen AdvReac Severe kidney Verified 04/18/24 13:47 stop working tramadol AdvReac Severe Other Verified 04/18/24 13:47 benzonatate AdvReac Unknown Headache Verified 04/18/24 13:47 codeine AdvReac Unknown Headache Verified 04/18/24 13:47 Vital Signs Vital Signs - 24 hr 04/18/24 09:44 04/18/24 13:45 04/18/24 13:47 Temperature 97.5 F L Pulse Rate 79 77 61 Respiratory Rate 16 27 H Blood Pressure 176/91 H 188/97 H Pulse Oximetry 97 97 Oxygen Delivery 04/18/24 13:48 04/18/24 14:57 Temperature Pulse Rate 60 Respiratory Rate 23 H Blood Pressure 175/92 H Pulse Oximetry 95 Oxygen Delivery Room Air Exam Const: Other: , female, nontoxic appearance HENMT: Face/Nose/Sinus: Normal nares present Mouth: Yes moist mucous membranes Eyes: General: appearance normal, both eyes and all related structures Sclera: sclerae normal Pupils: Equal, round and reactive pupils present EOM: EOMs intact bilaterally Resp: Effort & Inspection: normal respiratory effort Auscultation: clear to auscultation bilaterally Other: Mild tachypnea without accessory muscle use. Cardio: Rate: regular rate Rhythm: abnormal rhythm Other: S1-S2 present without murmur, rub, ectopy GI: Other: Abdomen soft, nondistended, nontender. Urinary Catheter: Urinary Catheter: patent and draining Skin: General skin exam: normal color and no rashes or lesions noted Wou nds: no wounds Neuro: Speech: normal speech Motor exam (neuro): 5/5 motor strength present throughout Sensory Exam: normal sensation Other: A&O x4 Extrem: Other: 2+ pitting edema starting at knees and e xtending to the anterior feet. Psych: Mental Status: mental status grossly normal Affect: normal affect Other: Good to fair insight and judgment, pleasant H&P: Results Labs Labs: Short CBC 04/18/24 Range/Units 13:36 WBC 7.3 (4.5-10.0) K/mm3 Hgb 13.3 (12.0-15.0) g/dL Hct 41.6 (37.0-47.0) % Plt Count 284 (150-375) k/mm3 BMP 04/18/24 13:36 Sodium 136 L Potassium 4.1 Chloride 105 Carbon Dioxide 28 BUN 11 Creatinine 1.00 Glucose 94 Calcium 8.7 Cardiac Enzymes 04/18/24 04/18/24 Range/Units 13:36 16:42 Troponin I 0.023 0.025 (0.000-0.034) ng/mL Liver Function 04/18/24 Range/Units 13:36 Total Bilirubin 0.9 (0.2-1.3) mg/dL AST 32 (14-36) U/L ALT 18 (6-35) U/L Alkaline Phosphatase 178 H (38-126) U/L Albumin 3.7 (3.5-5.1) g/dL Urine 04/18/24 Range/Units 15:45 Urine Color Yellow (Yellow) Urine Appearance Clear (Clear) Urine pH 6.5 (5.0-9.0) Ur Specific [place] 1.008 (1.001-1.035) Urine Protein Negative (Negative) mg/dL Urine Glucose (UA) Negative (Negative) mg/dL Assessment and Plan Assessment and plan (1) Acute on chronic diastolic heart failure: Code(s): I50.33 - Acute on chronic diastolic (congestive) heart failure Status: Acute Assessment and Plan: - BNP 6380 - most recent echo (10/2023): Moderate concentric LV hypertrophy, normal systolic function, pseudonormal diastolic dysfunction grade 2, estimated EF 60%. See report for details. - update echo - currently on: Lasix 40 mg bid. will continue as Lasix 40 mg IVP daily with initial bolus dose of 80 mg, assess toleration. - monitor I&Os and daily weights - trend renal function (2) CKD (chronic kidney disease): Qualifiers: Chronic kidney disease stage: unspecified stage Qualified Code(s): N18.9 - Chronic kidney disease, unspecified Code(s): N18.9 - Chronic kidney disease, unspecified Status: Chronic Assessment and Plan: - creatinine 1.0 and GFR 41, previously 0.8 and GFR >60 on 04/10/2024 - trend renal function - trend electrolytes, correct as needed (3) Hypertension: Qualifiers: Hypertension type: primary hypertension Qualified Code(s): I10 - Essential (primary) hypertension Code(s): I10 - Essential (primary) hypertension Status: Chronic Assessment and Plan: - chronic, currently 175/92 - continue home medications: Metoprolol ER 50 mg b.i.d. - monitor Plan Diet: Heart healthy GI Prophylaxis: Not currently indicated DVT Prophylaxis: SCDs Lines: Peripheral Code Status: Full code Quality VTE Prophylaxis VTE prophylaxis: mechanical ordered Hospitalist MIPS Advance Care Plan I have confirmed that the patient's Advanced Care Plan is present, code status is documented, or surrogate decision maker is listed in patient medical record.: Yes Medication Reconciliation I have utilized all available resources to obtain, update and review the patients current medications (includes all prescriptions, OTC, herbals, cannabis, and nutritional supplements).: Yes
--- NOTE | 2024-04-18 18:14 | ADMGEN ---
This patient, Jenniffer Cm, was admitted to [facility] Surg Room 321-01. Patient/family oriented to hospital policies and general routines including ID bracelet, bed and alarms, visiting hours, pain management, procedures, bathroom and other care routines, personal items, smoking policy, room service/diet, and visiting hours. Information on how to activate the Rapid Response Team has been discussed. Patient/Family are encouraged to report perceived risks to care and to ask questions if they do not understand what they are told or what they should do.
[2024-04-18 20:00] VITALS: PULSE 81
[2024-04-18 21:11] VITALS: BP 139/91; PULSE 77; RESP 18; TEMP 36.7; O2SAT 94
[2024-04-18] MEDS: traZODone HCL 50 MG TABLET 100 MG PO (21:52)
[2024-04-18] MEDS: METOPROLOL SUCCINATE EXT REL 50 MG TABCR PO (21:52)
[2024-04-19] VITALS (12 sets, daily range): BP systolic 139–152; BP diastolic 67–92; PULSE 58–92; RESP 18–20; TEMP 36.3–36.4; O2SAT 92–96
--- NOTE | 2024-04-19 | ECHO_ITS ---
Patient Info Name: Jenniffer Cm Age: 84 years : 1940 Gender: Female Ht: 65 in Wt: 190 lbs BSA: 2.02 m2 HR: 78 bpm BP: 154 / 98 mmHg Heart Rhythm: Sinus Rhythm Technical Quality: Good Exam Date: 04/19/2024 9:13 AM Exam Location: Echo Lab Patient Status: Inpatient Admit Date: 04/19/2024 Staff Ordering Physician: Flory Palomino APRN Staff Submarine Warfare Officer: Rosemary Briggs RDCS Attending Provider: Ambika Leung APRN Referring Physician: Candelario STEWART; Exam Type: CA echo doppler color flow Study Info Indications - palpatation, chf exacerbation Complete two-dimensional, color flow and Doppler transthoracic echocardiogram is performed. Summary 1. Complete two-dimensional, color flow and Doppler transthoracic echocardiogram is performed. 2. Left ventricular chamber dimension is normal. 3. Left ventricular systolic function is normal, estimated at 55-60%. 4. There is moderate concentric increased left ventricular wall thickness. 5. Ventricular septum is sigmoid shaped is suggestive of hypertrophic cardiomyopathy. No resting LVOT obstruction. 6. The left ventricular diastolic function is abnormal. 7. E/e' 21 is elevated. 8. Left atrial chamber dimension is mildly enlarged. 9. The mitral valve has mildly calcified annulus. 10. There is mild to moderate tricuspid valve regurgitation. 11. Moderate pulmonary hypertension, estimated pulmonary arterial systolic pressure is 51 mmHg. Left Ventricle E/e' 21 is elevated. Ventricular septum is sigmoid shaped is suggestive of hypertrophic cardiomyopathy. No resting LVOT obstruction. Left ventricular chamber dimension is normal. Left ventricular systolic function is normal, estimated at 55-60%. There is moderate concentric increased left ventricular wall thickness. The left ventricular diastolic function is abnormal. Right Ventricle Right ventricular systolic function is normal and with normal TAPSE 1.8 cm. Right ventricular chamber dimension is normal. Left Atria Left atrial chamber dimension is mildly enlarged. Right Atria Right atrial chamber dimension is normal. Aortic Valve The aortic valve is not well visualized. Cannot determine number of aortic valve leaflets. There is no aortic valve stenosis based on valve area and gradients. There is no aortic valve regurgitation. Pulmonic Valve There is no pulmonic regurgitation. Mitral Valve The mitral valve has mildly calcified annulus. There is no mitral valve stenosis. There is no mitral valve regurgitation. Tricuspid Valve There is mild to moderate tricuspid valve regurgitation. Moderate pulmonary hypertension, estimated pulmonary arterial systolic pressure is 51 mmHg. Pericardium/Pleural There is no pericardial effusion. Inferior Vena Cava Normal inferior vena cava with >50% collapse upon inspiration consistent with normal right atrial pressure, 5 mmHg. Aorta The aortic root size at the sinus of Valsalva is normal. Left Ventricular Outflow Tract Name Value Normal LVOT 2D LVOT Diameter 2.0 cm LVOT Doppler LVOT Peak Gradient 4 mmHg LVOT Mean Gradient 2 mmHg LVOT VTI 20 cm LVOT VTI/AV VTI Ratio 0.8 LVOT Stroke Volume 61 ml LVOT CO 4.4 l/min LVOT CI 2.2 l/min/m2 Mitral Valve Name Value Normal MV Doppler MV Decel [place] 538 cm/s2 MV PHT 72 ms MV Area (PHT) 3.0 cm2 4.0-5.0 MV Diastolic Function MV E Peak Velocity 134 cm/s MV A Peak Velocity 3 cm/s MV E/A 45.3 MV Decel Time 249 ms MV Annular TDI MV E/e' (Septal) 28.1 <=8.0 MV E/e' (Lateral) 17.5 <=8.0 MV E/e' (Average) 22.8 Tricuspid Valve Name Value Normal TV Regurgitation Doppler TR Peak Velocity 339 cm/s TR Peak Gradient 28 mmHg Estimated PAP/RSVP RA Pressure 5 mmHg <=5 PA Systolic Pressure 51 mmHg <36 RV Systolic Pressure 51 mmHg <36 Aortic Valve Name Value Normal AV Doppler AV Peak Velocity 168 cm/s AV Peak Gradient 11 mmHg AV Mean Gradient 6 mmHg AV VTI 26 cm AV Area (Cont Eq VTI) 2.3 cm2 >=3.0 AV Area (Cont Eq Abhi) 1.9 cm2 AV Regurgitation 2D LVOT Area 3.0 cm2 Ventricles Name Value Normal LV Dimensions 2D/MM IVS Diastolic Thickness (2D) 1.4 cm 0.6-1.0 LVID Diastole (2D) 4.9 cm 3.8-5.2 LVIW Diastolic Thickness (2D) 1.4 cm 0.6-0.9 LVID Systole (2D) 3.8 cm 2.2-3.5 LVOT Diameter 2.0 cm LV Mass (2D Cubed) 283.68 g 67.00-162.00 LV Mass Index (2D Cubed) 141 g/m2 43-95 Relative Wall Thickness (2D) 0.57 LV Fractional Shortening/Ejection Fraction 2D/MM LV Fractional Shortening (2D) 23 % 27-45 LV EF (2D Teicholz) 45 % 54-74 LV Diastolic Volume (4C MOD) 107 ml LV EF (4C MOD) 39 % LV Diastolic Volume (2C MOD) 124 ml LV EF (2C MOD) 52 % LV Diastolic Volume (BP MOD) 119 ml 46-106 LV Diastolic Volume Index (BP MOD) 59 ml/m2 29-61 LV Systolic Volume (BP MOD) 65 ml 14-42 LV Systolic Volume Index (BP MOD) 32 ml/m2 8-24 LV EF (BP MOD) 45 % 54-74 LV Diastolic Length (4C) 8.0 cm LV Systolic Length (4C) 7.3 cm LV Stroke Volume (4C MOD) 42 ml Atria Name Value Normal LA Dimensions LA Volume (4C A-L) 70 ml LA Volume (BP A-L) 63 ml RA Dimensions RA Area (4C) 16.5 cm2 <=18.0 Report Signatures
[2024-04-19] MEDS: LEVOTHYROXINE SODIUM 75 MCG TABLET PO (06:14)
[2024-04-19] MEDS: LEVOTHYROXINE SODIUM 100 MCG TABLET PO (06:14)
--- NOTE | 2024-04-19 07:42 | P.PNIM_ITS ---
Progress Note: A&P Assessment and Plan (1) Acute on chronic diastolic heart failure: Code(s): I50.33 - Acute on chronic diastolic (congestive) heart failure Status: Acute Assessment and Plan: - BNP 6380 - most recent echo (10/2023): Moderate concentric LV hypertrophy, normal systolic function, pseudonormal diastolic dysfunction grade 2, estimated EF 60%. See report for details. - update echo - patient was not taking Lasix at home. Will diuresis with Lasix 40 mg IVP BID today. - monitor I&Os and daily weights - trend renal function - weight 86 kg on 04/02/24. Now 81.7 kg. - net negative 2.3 L of fluid (2) CKD (chronic kidney disease): Qualifiers: Chronic kidney disease stage: unspecified stage Qualified Code(s): N18.9 - Chronic kidney disease, unspecified Code(s): N18.9 - Chronic kidney disease, unspecified Status: Chronic Assessment and Plan: - creatinine 1.0 and GFR 41, previously 0.8 and GFR >60 on 04/10/2024 - trend renal function - trend electrolytes, correct as needed (3) Hypertension: Qualifiers: Hypertension type: primary hypertension Qualified Code(s): I10 - Essential (primary) hypertension Code(s): I10 - Essential (primary) hypertension Status: Chronic Assessment and Plan: - chronic, currently 175/92 - continue home medications: Metoprolol ER 50 mg b.i.d. - may consider adding losartan for persistent hypertension Plan Diet: Heart healthy GI Prophylaxis: Not currently indicated DVT Prophylaxis: SCDs Lines: Peripheral Code Status: Full code Subjective Date/time seen: 04/19/24 07:42 Interval history: Patient is seen resting in bed in no acute distress. She states she feels much better than when she 1st presented. She was having dyspnea with exertion being unable to walk more than 10 ft without needing to break for rest periods. She was also having abdominal distention which has decreased. She has continued bilateral lower extremity edema. She is anxious to go home. Review of Systems Review of Systems: All systems reviewed & are unremarkable except as noted in HPI and below Exam Narrative: General: appears comfortable, in no acute distress Respiratory: breathing is unlabored with even chest rise/fall, lungs are clear without wheezing, rhonchi, and crackles Cardiovascular: Rate and rhythm irregular, normal s1s2, no murmur Abdomen: Soft, round, non-tender, active bowel sounds Extremities: No cyanosis,+ 3 bilateral lower pitting edema, no clubbing. Pulses 2/2 Neuro: A&O x 4 Skin: Warm, dry, intact Objective Data Vital Signs Vital Signs: Vital Signs - 24 hr 04/18/24 09:44 04/18/24 13:45 04/18/24 13:47 Temperature 97.5 F L Pulse Rate 79 77 61 Respiratory Rate 16 27 H Blood Pressure 176/91 H 188/97 H Pulse Oximetry 97 97 Oxygen Delivery 04/18/24 13:48 04/18/24 14:57 04/18/24 18:33 Temperature Pulse Rate 60 Respiratory Rate 23 H Blood Pressure 175/92 H Pulse Oximetry 95 Oxygen Delivery Room Air Room Air 04/18/24 21:11 04/19/24 06:00 04/18/24 20:00 Temperature 98.0 F 97.6 F Pulse Rate 77 78 81 Respiratory Rate 18 20 Blood Pressure 139/91 H 152/92 H Pulse Oximetry 94 94 Oxygen Delivery 04/19/24 00:00 04/19/24 04:00 Temperature Pulse Rate 60 63 Respiratory Rate Blood Pressure Pulse Oximetry Oxygen Delivery Intake/Output Intake/Output: Intake & Output 04/16/24 04/17/24 04/18/24 04/19/24 23:59 23:59 23:59 23:59 Intake Total 240 100 Output Total 2625 651 Balance -8787 -758 Meds/Results Medications: Active Medications Generic Name Dose Route Start Last Admin Trade Name Freq PRN Reason Stop Dose Admin Albuterol 2 puff 04/18/24 20:09 Albuterol Sulfate (*Sp) Aerosol 1 Puff INHALATION Q4HRT PRN shortness of breath or wheezing Diphenoxylate HCl/Atropine 1 tablet 04/18/24 20:09 Diphenoxylate/Atropine (*Crx) 2.5 Mg Tablet PO QID PRN diarrhea Furosemide 40 mg 04/18/24 18:35 04/18/24 19:23 Furosemide Inj 40 Mg/4 Ml Vial IV PUSH 40 mg DAILY HOWIE Administration Levothyroxine Sodium 100 mcg 04/19/24 06:30 04/19/24 06:14 Levothyroxine Sodium 100 Mcg Tablet PO 100 mcg DAILY@0630 HOWIE Administration Levothyroxine Sodium 75 mcg 04/19/24 06:30 04/19/24 06:14 Levothyroxine Sodium 75 Mcg Tablet PO 75 mcg DAILY@0630 HOWIE Administration Metoprolol Succinate 50 mg 04/18/24 21:00 04/18/24 21:52 Metoprolol Succinate Ext Rel 50 Mg Tabcr PO 50 mg Q12HR HOWIE Administration Miscellaneous Information 1 each 04/18/24 00:01 Nonformulary Drug (Vilazodone 20 Mg Tablet). Can Patient Use From Home? XX 05/18/24 00:00 CLARIFY HOWIE Miscellaneous Information 1 each 04/18/24 00:01 Nonformulary Drug (Ursodiol 500 Mg Tablet) Can Patient Use From Home? XX 05/18/24 00:00 CLARIFY [facility] Non-Formulary Medication 500 mg 04/19/24 09:00 Ursodiol PO 05/19/24 08:59 BID HOWIE Non-Formulary Medication 20 mg 04/19/24 09:00 Vilazodone PO 05/19/24 08:59 DAILY [facility] Perflutren Lipid Microsphere 0 ml 04/18/24 14:57 Perflutren Lipid Microspheres 1.5 Ml Vial Diluted To 10 Ml Total Volume IV PUSH 04/21/24 14:57 ONCE PRN adequate visualization Protocol Potassium Chloride 40 meq 04/19/24 09:00 Potassium Chloride 20 Meq Er Tablet PO DAILY [facility] Trazodone HCl 100 mg 04/18/24 21:00 04/18/24 21:52 Trazodone Hcl 50 Mg Tablet PO 100 mg QHS HOWIE Administration Radiology Results: ITS Impressions Chest X-Ray 04/18/24 13:15 IMPRESSION: No acute cardiopulmonary pathology. Labs Labs: Laboratory Results - last 24 hr 04/18/24 04/18/24 04/18/24 13:36 15:45 16:42 WBC 7.3 RBC 4.34 Hgb 13.3 Hct 41.6 MCV 95.9 MCH 30.6 MCHC 32.0 RDW 15.2 H Plt Count 284 MPV 9.3 Immature Gran % (Auto) 0.3 Neut % (Auto) 78.3 H Lymph % (Auto) 7.3 L [place] % (Auto) 10.6 H Eos % (Auto) 2.9 Baso % (Auto) 0.6 Lymph # (Auto) 0.53 L [place] # (Auto) 0.8 H Eos # (Auto) 0.2 Baso # (Auto) 0.0 Abs Immat Gran (auto) 0.02 Absolute Neuts (auto) 5.7 Absolute Nucleated RBC 0.000 Nucleated RBC % 0.0 PT 14.5 INR 1.1 APTT 28.2 Sodium 136 L Potassium 4.1 Chloride 105 Carbon Dioxide 28 Anion Gap 3 L BUN 11 Creatinine 1.00 Estim Creat Clear Calc 41 Estimated GFR 53 L Glucose 94 Calcium 8.7 Total Bilirubin 0.9 AST 32 ALT 18 Alkaline Phosphatase 178 H Troponin I 0.023 0.025 NT-Pro-B Natriuret Pep 6380 H Total Protein 7.0 Albumin 3.7 Lipase 71 Urine Color Yellow Urine Appearance Clear Urine pH 6.5 Ur Specific [place] 1.008 Urine Protein Negative Urine Glucose (UA) Negative Urine Ketones Negative Ur Blood (Man) Negative Urine Nitrate Negative Urine Bilirubin Negative Urine Urobilinogen 0.2 Leukocyte Esterase Rfl Negative Quality VTE Prophylaxis VTE prophylaxis: mechanical ordered
[2024-04-19 07:49] LABS: Basophils Percent Auto 0.5 % (0.2-1.2); Eosinophils Absolute Auto 0.1 K/mm3 (0-0.3); Eosinophils Percent Auto 1.5 % (0-4.4); Hemoglobin 12.7 g/dL (12.0-15.0); Immature Granulocyte Absolute 0.03 K/mm3 (0.00-0.031); Immature Granulocyte Percent A 0.4 % (0-0.5); Lymphocytes Percent Auto 5.3 % (18.3-44.2); Mean Corpuscular HGB Conc 31.8 g/dl (32-36); Mean Corpuscular Hemoglobin 30.4 pg (26-34); Mean Corpuscular Volume 95.7 fl (80-100); Mean Platelet Volume 9.7 fl (7.4-10.4); Monocytes Absolute Auto 0.7 K/mm3 (0.1-0.6); Monocytes Percent Auto 8.8 % (2.6-8.5); Neutrophils Absolute Auto 6.3 K/mm3 (1.3-6.7); Neutrophils Percent Auto 83.5 % (45.5-73.1); Platelet Count Result 248 k/mm3 (150-375); Red Blood Count 4.18 M/mm3 (4.2-5.4); Red Cell Distribution Width 15.1 % (11.5-14.5); White Blood Count 7.5 K/mm3 (4.5-10.0)
[2024-04-19 07:59] LABS: Alanine Aminotransferase 17 U/L (6-35); Albumin Level 3.4 g/dL (3.5-5.1); Alkaline Phosphatase 161 U/L (38-126); Anion Gap 2 mmol/L (4-12); Aspartate Amino Transferase 32 U/L (14-36); Bilirubin,Total 0.9 mg/dL (0.2-1.3); Blood Urea Nitrogen 12 mg/dL (7-17); Calcium 8.4 mg/dL (8.4-10.2); Carbon Dioxide 32 mmol/L (22-30); Chloride 101 mmol/L (98-107); Estimated CRCL calculation 37 ml/min; Estimated Glomerular Filt Rate 48; Glucose 98 mg/dL (65-110); Magnesium 2.1 mg/dL (1.6-2.3); Phosphorus 3.7 mg/dL (2.5-4.5); Potassium 3.8 mmol/L (3.4-5.0); Sodium 135 mmol/L (137-145)
[2024-04-19] MEDS: POTASSIUM CHLORIDE 20 MEQ ER TABLET 40 MEQ PO (08:15)
[2024-04-19] MEDS: EMPAGLIFLOZIN 10 MG TABLET PO (08:15)
[2024-04-19] MEDS: METOPROLOL SUCCINATE EXT REL 50 MG TABCR PO ×2 (08:16→20:52)
[2024-04-19] MEDS: FUROSEMIDE INJ 40 MG/4 ML VIAL IV PUSH ×2 (08:17→16:46)
[2024-04-19] MEDS: POTASSIUM CHLORIDE 20 MEQ PACKET (FOR LIQUID) 40 MEQ PO (13:15)
[2024-04-19] MEDS: traZODone HCL 50 MG TABLET 100 MG PO (20:52)
[2024-04-20] VITALS (11 sets, daily range): BP systolic 138–148; BP diastolic 74–84; PULSE 68–94; RESP 18–20; TEMP 36.2–36.4; O2SAT 94–95
[2024-04-20] MEDS: LEVOTHYROXINE SODIUM 75 MCG TABLET PO (06:26)
[2024-04-20] MEDS: LEVOTHYROXINE SODIUM 100 MCG TABLET PO (06:26)
[2024-04-20 07:01] LABS: Basophils Absolute Auto 0.1 K/mm3 (0.0-0.1); Basophils Percent Auto 0.8 % (0.2-1.2); Eosinophils Absolute Auto 0.2 K/mm3 (0-0.3); Eosinophils Percent Auto 3.1 % (0-4.4); Hematocrit 40.8 % (37.0-47.0); Hemoglobin 13.2 g/dL (12.0-15.0); Immature Granulocyte Absolute 0.02 K/mm3 (0.00-0.031); Immature Granulocyte Percent A 0.3 % (0-0.5); Lymphocytes Percent Auto 6.4 % (18.3-44.2); Mean Corpuscular HGB Conc 32.4 g/dl (32-36); Mean Corpuscular Hemoglobin 30.3 pg (26-34); Mean Corpuscular Volume 93.8 fl (80-100); Mean Platelet Volume 9.5 fl (7.4-10.4); Monocytes Absolute Auto 0.8 K/mm3 (0.1-0.6); Monocytes Percent Auto 10.5 % (2.6-8.5); Neutrophils Absolute Auto 6.2 K/mm3 (1.3-6.7); Neutrophils Percent Auto 78.9 % (45.5-73.1); Platelet Count Result 278 k/mm3 (150-375); Red Blood Count 4.35 M/mm3 (4.2-5.4); Red Cell Distribution Width 14.9 % (11.5-14.5); White Blood Count 7.8 K/mm3 (4.5-10.0)
[2024-04-20 07:14] LABS: Alanine Aminotransferase 15 U/L (6-35); Albumin Level 3.4 g/dL (3.5-5.1); Alkaline Phosphatase 138 U/L (38-126); Anion Gap 5 mmol/L (4-12); Aspartate Amino Transferase 27 U/L (14-36); Bilirubin,Total 0.8 mg/dL (0.2-1.3); Blood Urea Nitrogen 17 mg/dL (7-17); Calcium 8.7 mg/dL (8.4-10.2); Carbon Dioxide 31 mmol/L (22-30); Chloride 101 mmol/L (98-107); Estimated CRCL calculation 34 ml/min; Estimated Glomerular Filt Rate 43; Glucose 98 mg/dL (65-110); Magnesium 2.1 mg/dL (1.6-2.3); Potassium 3.7 mmol/L (3.4-5.0); Sodium 137 mmol/L (137-145)
[2024-04-20] MEDS: FUROSEMIDE INJ 40 MG/4 ML VIAL IV PUSH (09:50)
[2024-04-20] MEDS: EMPAGLIFLOZIN 10 MG TABLET PO (09:50)
[2024-04-20] MEDS: METOPROLOL SUCCINATE EXT REL 50 MG TABCR PO ×2 (09:50→20:46)
[2024-04-20] MEDS: POTASSIUM CHLORIDE 20 MEQ ER TABLET 40 MEQ PO (09:51)
--- NOTE | 2024-04-20 15:45 | PM.IMPN ---
Progress Note: A&P Assessment and Plan (1) Acute on chronic diastolic heart failure: Code(s): I50.33 - Acute on chronic diastolic (congestive) heart failure Status: Acute Assessment and Plan: - BNP 6380 - most recent echo (10/2023): Moderate concentric LV hypertrophy, normal systolic function, pseudonormal diastolic dysfunction grade 2, estimated EF 60%. See report for details. - ECHO repeated here is mostly unchanged since October 2023. - patient was not taking Lasix at home. Will diuresis with Lasix 40 mg IVP today. Transition to oral Lasix 40 mg daily starting 04/20/24. - monitor I&Os and daily weights - trend renal function - weight 86 kg on 04/02/24. Now 81.8 kg - net negative 7.6 L (2) CKD (chronic kidney disease): Qualifiers: Chronic kidney disease stage: unspecified stage Qualified Code(s): N18.9 - Chronic kidney disease, unspecified Code(s): N18.9 - Chronic kidney disease, unspecified Status: Chronic Assessment and Plan: - creatinine 1.0 and GFR 41, previously 0.8 and GFR >60 on 04/10/2024 - trend renal function - trend electrolytes, correct as needed (3) Hypertension: Qualifiers: Hypertension type: primary hypertension Qualified Code(s): I10 - Essential (primary) hypertension Code(s): I10 - Essential (primary) hypertension Status: Chronic Assessment and Plan: - chronic, currently 175/92 - continue home medications: Metoprolol ER 50 mg b.i.d. - may consider adding losartan for persistent hypertension Plan Diet: Heart healthy GI Prophylaxis: Not currently indicated DVT Prophylaxis: SCDs Lines: Peripheral Code Status: Full code Subjective Date/time seen: 04/20/24 15:45 Interval history: No acute events overnight. She continues to feel much improved since admission. She no longer has shortness of breath. She has persistent bilateral lower extremity edema but it is improving. Review of Systems Review of Systems: All systems reviewed & are unremarkable except as noted in HPI and below Exam Narrative: General: appears comfortable, in no acute distress Respiratory: breathing is unlabored with even chest rise/fall, lungs are clear without wheezing, rhonchi, and crackles Cardiovascular: Rate and rhythm irregular, normal s1s2, no murmur Abdomen: Soft, round, non-tender, active bowel sounds Extremities: No cyanosis,+ 3 bilateral lower pitting edema, no clubbing. Pulses 2/2 Neuro: A&O x 4 Skin: Warm, dry, intact Objective Data Vital Signs Vital Signs: Vital Signs - 24 hr 04/19/24 16:00 04/19/24 20:32 04/19/24 20:52 Temperature 97.3 F L Pulse Rate 91 82 87 Respiratory Rate 18 Blood Pressure 141/67 H Pulse Oximetry 96 Oxygen Delivery Fraction of Inspired Oxygen 04/19/24 20:00 04/20/24 05:07 04/20/24 00:00 Temperature 97.6 F Pulse Rate 90 85 68 Respiratory Rate 20 Blood Pressure 148/82 H Pulse Oximetry 95 Oxygen Delivery Fraction of Inspired Oxygen 04/20/24 04:00 04/20/24 08:51 04/20/24 08:03 Temperature Pulse Rate 73 75 Respiratory Rate Blood Pressure Pulse Oximetry 95 Oxygen Delivery Room Air Fraction of Inspired Oxygen 21 04/20/24 12:00 04/20/24 14:00 Temperature 97.4 F L Pulse Rate 84 88 Respiratory Rate 18 Blood Pressure 138/74 Pulse Oximetry 94 Oxygen Delivery Fraction of Inspired Oxygen Intake/Output Intake/Output: Intake & Output 04/17/24 04/18/24 04/19/24 04/20/24 23:59 23:59 23:59 23:59 Intake Total 240 1180 910 Output Total 2625 3800 6742 [id number] [id number] [id number] Meds/Results Medications: Active Medications Generic Name Dose Route Start Last Admin Trade Name Freq PRN Reason Stop Dose Admin Albuterol 2 puff 04/18/24 20:09 Albuterol Sulfate (*Sp) Aerosol 1 Puff INHALATION Q4HRT PRN shortness of breath or wheezing Diphenoxylate HCl/Atropine 1 tablet 04/18/24 20:09 Diphenoxylate/Atropine (*Crx) 2.5 Mg Tablet PO QID PRN diarrhea Empagliflozin 10 mg 04/19/24 09:00 04/20/24 09:50 Empagliflozin 10 Mg Tablet PO 10 mg DAILY HOWIE Administration Furosemide 40 mg 04/21/24 09:00 Furosemide 40 Mg Tablet PO DAILY HOWIE Levothyroxine Sodium 100 mcg 04/19/24 06:30 04/20/24 06:26 Levothyroxine Sodium 100 Mcg Tablet PO 100 mcg DAILY@0630 HOWIE Administration Levothyroxine Sodium 75 mcg 04/19/24 06:30 04/20/24 06:26 Levothyroxine Sodium 75 Mcg Tablet PO 75 mcg DAILY@0630 HOWIE Administration Metoprolol Succinate 50 mg 04/18/24 21:00 04/20/24 09:50 Metoprolol Succinate Ext Rel 50 Mg Tabcr PO 50 mg Q12HR HOWIE Administration Miscellaneous Information 1 each 04/18/24 00:01 Nonformulary Drug (Vilazodone 20 Mg Tablet). Can Patient Use From Home? XX 05/18/24 00:00 [facility] Miscellaneous Information 1 each 04/18/24 00:01 Nonformulary Drug (Ursodiol 500 Mg Tablet) Can Patient Use From Home? XX 05/18/24 00:00 [facility] Non-Formulary Medication 500 mg 04/19/24 09:00 Ursodiol PO 05/19/24 08:59 BID HOWIE Non-Formulary Medication 20 mg 04/19/24 09:00 Vilazodone PO 05/19/24 08:59 DAILY [facility] Perflutren Lipid Microsphere 0 ml 04/18/24 14:57 Perflutren Lipid Microspheres 1.5 Ml Vial Diluted To 10 Ml Total Volume IV PUSH 04/21/24 14:57 ONCE PRN adequate visualization Protocol Potassium Chloride 40 meq 04/19/24 09:00 04/20/24 09:51 Potassium Chloride 20 Meq Er Tablet PO 40 meq DAILY HOWIE Administration Trazodone HCl 100 mg 04/18/24 21:00 04/19/24 20:52 Trazodone Hcl 50 Mg Tablet PO 100 mg QHS HOWIE Administration Radiology Results: ITS Impressions Chest X-Ray 04/20/24 08:40 IMPRESSION: 1. Small pleural effusions. 2. Cardiomegaly. Labs Labs: Laboratory Results - last 24 hr 04/20/24 06:40 WBC 7.8 RBC 4.35 Hgb 13.2 Hct 40.8 MCV 93.8 MCH 30.3 MCHC 32.4 RDW 14.9 H Plt Count 278 MPV 9.5 Immature Gran % (Auto) 0.3 Neut % (Auto) 78.9 H Lymph % (Auto) 6.4 L Collin % (Auto) 10.5 H Eos % (Auto) 3.1 Baso % (Auto) 0.8 Lymph # (Auto) 0.50 L Collin # (Auto) 0.8 H Eos # (Auto) 0.2 Baso # (Auto) 0.1 Abs Immat Gran (auto) 0.02 Absolute Neuts (auto) 6.2 Absolute Nucleated RBC 0.000 Nucleated RBC % 0.0 Sodium 137 Potassium 3.7 Chloride 101 Carbon Dioxide 31 H Anion Gap 5 BUN 17 Creatinine 1.20 H Estim Creat Clear Calc 34 Estimated GFR 43 L Glucose 98 Calcium 8.7 Magnesium 2.1 Total Bilirubin 0.8 AST 27 ALT 15 Alkaline Phosphatase 138 H Total Protein 6.0 L Albumin 3.4 L Quality VTE Prophylaxis VTE prophylaxis: mechanical ordered
[2024-04-20] MEDS: traZODone HCL 50 MG TABLET 100 MG PO (20:45)
[2024-04-21] VITALS (7 sets, daily range): BP systolic 143–162; BP diastolic 83–87; PULSE 63–90; RESP 16–20; TEMP 36.4; O2SAT 96–99
[2024-04-21] MEDS: LEVOTHYROXINE SODIUM 100 MCG TABLET PO (05:41)
[2024-04-21] MEDS: LEVOTHYROXINE SODIUM 75 MCG TABLET PO (05:41)
[2024-04-21 06:45] LABS: Basophils Absolute Auto 0.1 K/mm3 (0.0-0.1); Basophils Percent Auto 0.7 % (0.2-1.2); Eosinophils Absolute Auto 0.3 K/mm3 (0-0.3); Hemoglobin 13.3 g/dL (12.0-15.0); Immature Granulocyte Absolute 0.03 K/mm3 (0.00-0.031); Immature Granulocyte Percent A 0.4 % (0-0.5); Lymphocytes Absolute Auto 0.34 K/mm3 (0.9-3.2); Lymphocytes Percent Auto 4.7 % (18.3-44.2); Mean Corpuscular HGB Conc 32.4 g/dl (32-36); Mean Corpuscular Hemoglobin 30.7 pg (26-34); Mean Corpuscular Volume 94.7 fl (80-100); Mean Platelet Volume 9.2 fl (7.4-10.4); Monocytes Absolute Auto 0.7 K/mm3 (0.1-0.6); Monocytes Percent Auto 9.7 % (2.6-8.5); Neutrophils Absolute Auto 5.9 K/mm3 (1.3-6.7); Neutrophils Percent Auto 80.5 % (45.5-73.1); Platelet Count Result 269 k/mm3 (150-375); Red Blood Count 4.33 M/mm3 (4.2-5.4); Red Cell Distribution Width 14.7 % (11.5-14.5); White Blood Count 7.3 K/mm3 (4.5-10.0)
[2024-04-21 07:12] LABS: Alanine Aminotransferase 14 U/L (6-35); Albumin Level 3.3 g/dL (3.5-5.1); Alkaline Phosphatase 129 U/L (38-126); Anion Gap 6 mmol/L (4-12); Aspartate Amino Transferase 29 U/L (14-36); Bilirubin,Total 0.7 mg/dL (0.2-1.3); Blood Urea Nitrogen 18 mg/dL (7-17); Calcium 8.6 mg/dL (8.4-10.2); Carbon Dioxide 29 mmol/L (22-30); Chloride 102 mmol/L (98-107); Estimated CRCL calculation 37 ml/min; Estimated Glomerular Filt Rate 48; Glucose 103 mg/dL (65-110); Magnesium 2.1 mg/dL (1.6-2.3); Potassium 3.9 mmol/L (3.4-5.0); Sodium 137 mmol/L (137-145)
[2024-04-21] MEDS: METOPROLOL SUCCINATE EXT REL 50 MG TABCR PO (08:57)
[2024-04-21] MEDS: FUROSEMIDE 40 MG TABLET PO (08:57)
[2024-04-21] MEDS: POTASSIUM CHLORIDE 20 MEQ ER TABLET 40 MEQ PO (08:58)
[2024-04-21] MEDS: EMPAGLIFLOZIN 10 MG TABLET PO (08:58)
--- NOTE | 2024-04-21 13:24 | PM.DS ---
DS: Admitting Diagnosis Discharge Date 04/21 Admitting Diagnosis shortness of breath DS: Discharge Diagnosis Discharge Diagnosis (1) Acute on chronic diastolic heart failure: Code(s): I50.33 - Acute on chronic diastolic (congestive) heart failure Status: Acute Assessment and Plan: - BNP 6380 - most recent echo (10/2023): Moderate concentric LV hypertrophy, normal systolic function, pseudonormal diastolic dysfunction grade 2, estimated EF 60%. See report for details. - ECHO repeated here is mostly unchanged since October 2023. - patient was not taking Lasix at home. Will diuresis with Lasix 40 mg IVP today. Transition to oral Lasix 40 mg daily starting 04/20/24. - monitor I&Os and daily weights - trend renal function - weight 86 kg on 04/02/24. Now 81.8 kg - net negative 7.6 L (2) CKD (chronic kidney disease): Qualifiers: Chronic kidney disease stage: unspecified stage Qualified Code(s): N18.9 - Chronic kidney disease, unspecified Code(s): N18.9 - Chronic kidney disease, unspecified Status: Chronic Assessment and Plan: - creatinine 1.0 and GFR 41, previously 0.8 and GFR >60 on 04/10/2024 - trend renal function - trend electrolytes, correct as needed (3) Hypertension: Qualifiers: Hypertension type: primary hypertension Qualified Code(s): I10 - Essential (primary) hypertension Code(s): I10 - Essential (primary) hypertension Status: Chronic Assessment and Plan: - chronic, currently 175/92 - continue home medications: Metoprolol ER 50 mg b.i.d. - may consider adding losartan for persistent hypertension Plan Diet: Heart healthy GI Prophylaxis: Not currently indicated DVT Prophylaxis: SCDs Lines: Peripheral Code Status: Full code DS: Summary Hospital Course Reason for hospitalization: CHF exacerbation, HFpEF Hospital Course: 84 y/o F presents here with generalized weakness and shortness of breath with PMH of depression and thyroid disease. The patient presents here from home for further evaluation of generalized weakness, chest discomfort, palpitations, and shortness of breath. She reports onset of the symptoms this morning upon awakening. She describes the chest discomfort as bilateral upper/mid chest, squeezing/pressure more so than pain, nonradiating, constant, lasted for 5-10 minutes, and no aggravating or alleviating factors. The symptoms are also accompanied by worsening lower extremity edema, has been ongoing since 1 week ago. Also experiencing weight gain, unsure on amount, and has been going on for the past few weeks. Patient was initially concerned she was back in AFib given the palpitations and lightheadedness. However, initial EKG showed rate controlled AFib. Of note, patient does report that she self discontinued her Lasix 6 months ago citing that it I was feeling really bad and I thought to see if the Lasix was causing a problem. I did feel better when I quit. Further elaborated that the feeling bad was fatigue and general malaise. Patient follows with a entry engineer, Leora COLMENARES. Initial VS at presentation: 97.5? F, HR 79, RR 16, 176/91, and 97% on RA. ED workup showed: No leukocytosis, no anemia, normal coags, no significant electrolyte derangements, creatinine 1.0 and GFR 53, BNP 6380, initial troponin 0.023, and UA unremarkable. CXR showed no acute cardiopulmonary pathology. Patient was admitted for CHF exacerbation from not taking her Lasix. She was started on IV Lasix 40 mg IVP BID. A Be catheter was placed in the ED for strict I&O. The patient was diuresed with a total of 10 L removed. Her breathing returned to baseline and her lower extremity swelling improved. Her be catheter was removed and she was able to void spontaneously. She was able to discharge home in stable condition with recommended cardiology follow up in 1 week. Time Spent with Patient Time attestation: Total time spent providing and/or coordinating discharge services: 80 Exam Narrative: General: appears comfortable, in no acute distress Respiratory: breathing is unlabored with even chest rise/fall, lungs are clear without wheezing, rhonchi, and crackles Cardiovascular: Rate and rhythm irregular, normal s1s2, no murmur Abdomen: Soft, round, non-tender, active bowel sounds Extremities: No cyanosis,+ 3 bilateral lower pitting edema, no clubbing. Pulses 2/2 Neuro: A&O x 4 Skin: Warm, dry, intact DS: Data Data Completed and Pending Labs on day of discharge: Labs from last 24 hours 04/21/24 06:35 WBC 7.3 RBC 4.33 Hgb 13.3 Hct 41.0 MCV 94.7 MCH 30.7 MCHC 32.4 RDW 14.7 H Plt Count 269 MPV 9.2 Immature Gran % (Auto) 0.4 Neut % (Auto) 80.5 H Lymph % (Auto) 4.7 L Mcmullen % (Auto) 9.7 H Eos % (Auto) 4.0 Baso % (Auto) 0.7 Lymph # (Auto) 0.34 L Mcmullen # (Auto) 0.7 H Eos # (Auto) 0.3 Baso # (Auto) 0.1 Abs Immat Gran (auto) 0.03 Absolute Neuts (auto) 5.9 Absolute Nucleated RBC 0.000 Nucleated RBC % 0.0 Sodium 137 Potassium 3.9 Chloride 102 Carbon Dioxide 29 Anion Gap 6 BUN 18 H Creatinine 1.10 H Estim Creat Clear Calc 37 Estimated GFR 48 L Glucose 103 Calcium 8.6 Magnesium 2.1 Total Bilirubin 0.7 AST 29 ALT 14 Alkaline Phosphatase 129 H Total Protein 6.0 L Albumin 3.3 L Discharge Plan Discharge Attending physician on discharge: Luis Veras Discharging Clinician: Ambika Leung Anticipated Discharge Date/Time: 04/21/24 13:00 Patient Disposition: Home, Self-Care Activity: october shower Diet: heart healthy Discharge Instructions: you were admitted after presenting with shortness a breath. you were found to be fluid overloaded from your congested heart failure. This occurred from not taking your Lasix. Is very important to continue with her prescribed medications as directed. You should also try to limit your salt intake. if you have a scale at home it is moreno to weigh yourself every morning at the same time each day. If you notice a weight gain greater than 3 lb overnight or 5 lb in 1 week then you need to contact her entry engineer as her Lasix may need to be adjusted. If you notice increased shortness of breath or worsening swelling to her lower legs this could also mean that your Lasix needs to be adjusted. Please contact your entry engineer and make an appointment to see them in 1 week. Let them know you were just hospitalized for heart failure and they will see that you are seen promptly. You should also continue to follow up with your PCP as needed. Patient Instructions: Antibiotic Form, Heart Failure (DC), Pulmonary Edema (DC), Low-Sodium Diet (DC) Stand Alone Forms: General Discharge Information Follow-up/Referrals: Jass,Andrei E., [employer] [Primary Care Provider] - Discharge Medications: New Jardiance 10 mg Tablet 10 mg PO DAILY Qty: 90 0RF furosemide 40 mg Tablet 40 mg PO DAILY Qty: 90 0RF Continued vilazodone 20 mg Tablet 20 mg PO DAILY Rx Instructions: must administer with a meal/food diphenoxylate-atropine [Lomotil] 2.5-0.025 mg tablet 1 tablet PO QID PRN (Reason: diarrhea) Qty: 20 1RF potassium chloride 20 mEq tablet extended release 40 meq PO DAILY Qty: 180 1RF trazodone 100 mg tablet 100 mg PO QHS Qty: 90 1RF ursodiol 500 mg tablet 500 mg PO BID Qty: 180 2RF levothyroxine 175 mcg tablet 175 mcg PO DAILY Qty: 90 2RF albuterol sulfate 90 mcg/actuation HFA aerosol inhaler 2 puff inhalation Q4-6H PRN (Reason: shortness of breath or wheezing) Qty: 8.5 3RF metoprolol succinate 50 mg tablet extended release 24 hr 50 mg PO BID Qty: 180 2RF Date of admission: 04/19/24 09:05 Primary Care Provider: Andrei Regan Admitting Provider: Ted Sanchez Attending physician on admission: Ambika Leung Condition: Improved Quality VTE Prophylaxis VTE prophylaxis: mechanical ordered
== END 2024-04-21 14:40 | disposition home or self-care (01) | DRG 291 ==
LOC: ANHED 13:18 → ANH3MEDSUR 15:56
PROVIDERS: Physician Assistant; Student in an Organized Health Care Education/Training Program; Admitting Provider Hospitalist; Emergency Provider Emergency Medicine; PCP Nurse Practitioner; Visit Provider Nurse Practitioner Acute Care
DX: I13.0 Hypertensive heart and chronic kidney disease with heart failure and stage 1 through stage 4 chronic kidney disease, or unspecified chronic kidney disease (principal); I50.33 Acute on chronic diastolic (congestive) heart failure; I42.1 Obstructive hypertrophic cardiomyopathy; N18.9 Chronic kidney disease, unspecified; I48.0 Paroxysmal atrial fibrillation; J84.10 Pulmonary fibrosis, unspecified; E78.5 Hyperlipidemia, unspecified; E55.9 Vitamin D deficiency, unspecified; E03.9 Hypothyroidism, unspecified; H81.09 Meniere's disease, unspecified ear; M35.00 Sjogren syndrome, unspecified; F32.A Depression, unspecified; F41.9 Anxiety disorder, unspecified; Z96.659 Presence of unspecified artificial knee joint
CPT/HCPCS: 36415; 71045; 71046; 80053; 81003; 83690; 83735; 83880; 84100; 84484; 85025; 85610; 85730; 93005; 93306; 96374; 96376; 99285; A9270; G0378; J1940

== ENCOUNTER 2024-05-22 14:49 | Outpatient (NON) | payer MEDICARE, SELFPAY ==
[2024-05-22 16:15] LABS: Add Urine Microscopic? YES; Appearance Urine Cloudy (Clear); Bacteria Urine None Seen /hpf; Bilirubin Urine Negative (Negative); Blood Urine 2+ (Negative); Color Urine Yellow (Yellow); Glucose Urine UA Negative (Negative); Ketones Urine Negative (Negative); Leukocyte Esterase Ur 3+ LEU/UL (Negative); Nitrate Urine Negative (Negative); Non Pathogenic Casts 0-2; Protein Urine 1+ mg/dL (Negative); Specific Grav Ur 1.007 (1.001-1.035); Squamous Epithelial Cell Urine None Seen /hpf (Few); Urobilinogen Urine 0.2 mg/dL (<2.0); WBC Urine >100 /hpf (0-3); pH Urine 5.5 (5.0-9.0)
== END 2024-05-22 14:50 | disposition home or self-care (01) ==
PROVIDERS: PCP Nurse Practitioner; Visit Provider Nurse Practitioner
DX: R39.9 Unspecified symptoms and signs involving the genitourinary system (principal)
CPT/HCPCS: 81001; 87086

== ENCOUNTER 2024-05-29 18:21 | Emergency (ER) | payer MEDICARE, SELFPAY ==
--- NOTE | ~2024-05-29 | XR_ITS ---
HISTORY: fall COMPARISON: None TECHNIQUE: Frontal view of the pelvis with 2 views of the left hip FINDINGS: Diffuse bony demineralization is noted. Significant degenerative disease within the visualized portion of the lumbar spine. Superior lateral joint space narrowing and sclerosis is identified within the bilateral femoral aceta bular joint spaces. Joint space narrowing and sclerosis is present within the pubic symphysis. No acute fracture or dislocation is appreciated. IMPRESSION: Degenerative disease, without acute fracture or dislocation, as detailed above. Reviewed, dictated and finalized at location A. ERN FINISHER
--- NOTE | ~2024-05-29 | CT_ITS ---
History: Ground-level fall with blunt trauma to the back of the head. PROCEDURE: CT head without contrast. COMPARISON: 11/12/2022 TECHNIQUE: Axial imaging of the head performed from the skull base to the vertex without IV contrast. Sagittal a nd coronal reformations obtained. DLP: 757 mGy-cm FINDINGS: The ventricles are age-appropriate in size, shape and position. The ventricular size is proportional to the degree of sulcal prominence, not uncommon in a senescent brain. Decreased attenuation is identified within the periventricular white matter, likely secondary to micr ovascular ischemic disease in a patient of this age. There is no mass, mass effect or midline shift. There is no extra-axial fluid collection or intracranial hemorrhage. Visualized paranasal sinuses are clear. The mastoid air cells are well aerated. No acute displaced fractures within the overlying cranium. Impression: Stable CT examination of the brain without acute intracranial hemorrhage or suspicious mass effect. Reviewed, dictated and finalized at location A. KMAKER Impression: Stable CT examination of the brain without acute intracranial hemorrhage or barbara picious mass effect.
[2024-05-29 18:24] VITALS: BP 151/85; PULSE 72; RESP 16; TEMP 36.4; O2SAT 93
--- NOTE | 2024-05-29 21:50 | ED_ITS ---
HPI - Fall General Chief Complaint: Fall Stated Complaint: fall Time Seen by Provider: 05/29/24 20:35 Source: patient and family Mode of arrival: EMS Limitations: no limitations History of Present Illness HPI Narrative: 84-year-old with a history of hypertension, hyperlipidemia, CKD here with a complaint of fall. Patient states that she had a water leak in her kitchen 10 days ago , and today she was trying to open her dishwater ,which broke lose and she states she lost her balnce fell and hit her head , complaints of left hip pain,she states cannot take any pain meds,she uses CBD . complaint: fall Onset (ago): hour(s) (4) Fall from: standing Fall witnessed: yes, by family Place fall occurred: home Loss of consciousness: none Location of injury: pelvis (left hip) Associated symptoms (after fall): denies Related Data Home Medications ?Medication ?Instructions ?Recorded ?Confirmed ?Last Taken ?Type vilazodone 20 mg tablet 20 mg PO DAILY 02/20/23 04/18/24 Unknown History Allergies Allergy/AdvReac Type Severity Reaction Status Date / Time Gadolinium-Containing Allergy Severe Chest Pain Verified 04/27/24 12:47 Contrast Medi adhesive tape Allergy Mild Rash Verified 04/27/24 12:47 ioversol Allergy Unknown Other Verified 04/27/24 12:47 morphine Allergy Unknown Liver Verified 04/27/24 12:47 function tests abnormal acetaminophen AdvReac Severe kidney Verified 04/27/24 12:47 stop working tramadol AdvReac Severe Other Verified 04/27/24 12:47 benzonatate AdvReac Unknown Headache Verified 04/27/24 12:47 codeine AdvReac Unknown Headache Verified 04/27/24 12:47 Review of Systems Review of Systems: All systems reviewed & are unremarkable except as noted in HPI and below Constitutional: Constitutional: Reports no additional constitutional complaints Eyes: Eyes: Reports no additional eye complaints ENT: Reports system reviewed and no additional complaints, except as documented Cardiovascular: Cardiovascular: Reports no additional cardiovascular complaints Respiratory: Respiratory: Reports no additional respiratory complaints Gastrointestinal: Gastrointestinal: Reports no additional gastrointestinal complaints Musculoskeletal: Musculoskeletal: Reports as per HPI Integumentary/Breasts: Skin/Breast: Reports system reviewed and no additional complaints, except as docu Neurologic: Reports system reviewed and no additional complaints, except as documented [facility] Past Medical History Medical History Urinary catheter insertion/adjustment/removal Anxiety and depression Shingles Meniere disease Sjogren syndrome Rectocele Interstitial pulmonary fibrosis Vitamin D deficiency PAF (paroxysmal atrial fibrillation) CKD (chronic kidney disease) Hyperlipidemia Hypothyroidism Hypertension HOCM (hypertrophic obstructive cardiomyopathy) Primary biliary cirrhosis Vertigo Actinic keratosis History of basal cell carcinoma (BCC) Chin Surgical History Surgical History History of bladder surgery bladder suspension History of knee replacement 1997, 1998, 1999, 2001 History of cholecystectomy 1996 H/O: hysterectomy 1973 History of tubal ligation 1972 Family History Family History (Updated 04/27/24 @ 13:19 by MARY ELLEN Gray) Father Hypertension Cerebrovascular accident, Onset Age: 70 Patient's father is Mother Hypertension Family history of aortic aneurysm, Onset Age: 81 Sibling Hypertension Family history of diabetes mellitus in first degree relative Family history of coronary artery disease Family history of premature coronary heart disease Patient's brother is Family history of malignant neoplasm of brain Family history of type 2 diabetes mellitus Sibling Diabetes mellitus Heart disease Advanced hepatic cirrhosis Social History Social History (Updated 04/27/24 @ 13:20 by MARY ELLEN Gray) Social History: Caffeine-daily Smoking status: Former smoker Second hand tobacco smoke exposure: Yes Alcohol intake: never Substance use: current Other substance usage details: CBD gummies Do You Feel Safe in your Home?: Yes Lack of Transportation: No Lack of Food: Never True Current Housing: I Have Housing Concerned About Future Housing: No Difficulty Paying Gas/Electric Bills: No Difficulty Paying for Meds: No Currently Unemployed: No Education: High School Diploma/GED Difficulty w/ Childcare or Family Care: No Living arrangements: with family Occupation/Education: retired Additional occupation/education comments: [employer]. Gender identity (if verbalized by the patient): Female Spiritual care concerns: No Exam Narrative: GENERAL: Well-appearing, well-nourished, and in no acute distress. HEAD: Normocephalic, atraumatic. EYES: PERRLA and EOMI. ENT: Nares clear, no rhinorrhea or epistaxis. Mucous membranes moist. NECK: Supple. CHEST: Clear to auscultation. No respiratory distress. HEART: Regular rate and rhythm. No murmur heard. Normal peripheral pulses. ABDOMEN: Soft, nontender, nondistended, normal active bowel sounds. EXTREMITIES: Normal range of motion. No edema.tenderness in the left hip SKIN: Warm, dry, no rash. NEURO: No focal deficits. Alert and oriented x3. PSYCH: Normal mood and affect. Course Course Emergency Course: Notified patient about her CT and x-ray findings may she declined any pain medication she states she only uses CBD. Advised fall precautions, follow-up with the primary done Vital Signs Vital signs: Vital Signs Temperature 36.4 C 05/29/24 18:24 Pulse Rate 72 05/29/24 18:24 Respiratory Rate 16 05/29/24 18:24 Blood Pressure 151/85 H 05/29/24 18:24 Pulse Oximetry 93 05/29/24 18:24 Temperature 36.4 C 05/29/24 18:24 Pulse Rate 72 05/29/24 18:24 Respiratory Rate 16 05/29/24 18:24 Blood Pressure 151/85 H 05/29/24 18:24 Pulse Oximetry 93 05/29/24 18:24 MDM - Fall Imaging Data Radiologist's impression: ITS Impressions Head CT 05/29/24 21:05 Impression: Stable CT examination of the brain without acute intracranial hemorrhage or suspicious mass effect. Hip/Pelvis X-Ray 05/29/24 21:15 IMPRESSION: Degenerative disease, without acute fracture or dislocation, as detailed above. Discharge Plan Discharge Clinical Impression: Contusion of hip, left Qualifiers: Encounter type: initial encounter Qualified Code(s): S70.02XA - Contusion of left hip, initial encounter Patient Disposition: Home, Self-Care Condition: Stable Instructions: Contusion in Adults (ED) Additional Instructions: continue home medications, follow with your doctor . Patient Language: Albanian Prescriptions: No Action vilazodone 20 mg Tablet 20 mg PO DAILY Rx Instructions: must administer with a meal/food furosemide 40 mg Tablet 40 mg PO DAILY Qty: 90 0RF diphenoxylate-atropine [Lomotil] 2.5-0.025 mg tablet 1 tablet PO QID PRN (Reason: diarrhea) Qty: 20 1RF potassium chloride 20 mEq tablet extended release 40 meq PO DAILY Qty: 180 1RF trazodone 100 mg tablet 100 mg PO QHS Qty: 90 1RF ursodiol 500 mg tablet 500 mg PO BID Qty: 180 2RF levothyroxine 175 mcg tablet 175 mcg PO DAILY Qty: 90 2RF albuterol sulfate 90 mcg/actuation HFA aerosol inhaler 2 puff inhalation Q4-6H PRN (Reason: shortness of breath or wheezing) Qty: 8.5 3RF metoprolol succinate 50 mg tablet extended release 24 hr 50 mg PO BID Qty: 180 2RF Follow-up/Referrals: Andrei Regan APRN [Primary Care Provider] - Time of Disposition: 21:58
[2024-05-29 23:00] VITALS: BP 174/86; PULSE 76; RESP 15; O2SAT 100
== END 2024-05-29 23:01 | disposition home or self-care (01) ==
PROVIDERS: Emergency Provider Family Medicine; PCP Nurse Practitioner
DX: S70.02XA Contusion of left hip, initial encounter (principal); F41.9 Anxiety disorder, unspecified; F32.A Depression, unspecified; I12.9 Hypertensive chronic kidney disease with stage 1 through stage 4 chronic kidney disease, or unspecified chronic kidney disease; N18.9 Chronic kidney disease, unspecified; I48.91 Unspecified atrial fibrillation; E78.5 Hyperlipidemia, unspecified; E03.9 Hypothyroidism, unspecified; W01.0XXA Fall on same level from slipping, tripping and stumbling without subsequent striking against object, initial encounter
CPT/HCPCS: 70450; 73502; 99284

== ENCOUNTER 2024-07-11 10:22 | Outpatient (CLI) | payer MEDICARE, SELFPAY ==
[2024-07-11 11:21] LABS: Add Urine Microscopic? YES; Appearance Urine Turbid (Clear); Bacteria Urine 1+ /hpf; Bilirubin Urine Negative (Negative); Blood Urine 1+ (Negative); Color Urine Yellow (Yellow); Glucose Urine UA Negative (Negative); Ketones Urine Negative (Negative); Leukocyte Esterase Ur 3+ LEU/UL (Negative); Nitrate Urine Negative (Negative); Protein Urine Trace mg/dL (Negative); RBC Urine 0-2 /hpf (0-2); Specific Grav Ur 1.012 (1.001-1.035); Squamous Epithelial Cell Urine None Seen /hpf (Few); Urobilinogen Urine 0.2 mg/dL (<2.0); WBC Urine >100 /hpf (0-3); pH Urine 5.5 (5.0-9.0)
--- OUTSIDE RECORDS SUMMARY | 2024-07-11 11:30 | XMS_ITS | CONTINUITY OF CARE DOCUMENT ---
Author Name jeremyyesika alicja Address Unknown Organization [facility] Address [address] [facility] [address] [place] [address] Phone [phone] Care Team Providers Care Drone Pilot Name Role Phone Jl Corey MD Unavailable MARIYA , PAYAL Unavailable [phone] MARIYA DO, PAYAL Unavailable [phone] PROBLEMS Condition Status Date Provider Notes Microalbuminuria active Jl Corey MD Pulmonary hypertension active Jl Corey MD Valvular heart disease active Jl Corey MD Renal disease, chronic, mild;NEG DUPLEX and us active Jl Corey MD Screening active Jl Corey MD Hypothyroidism active Jl Corey MD Hyperlipidemia;with high crp and lpa 117 active Jl Corey MD FAMILY HISTORY OF HEART DISEASE active Jl Corey MD covid 19;2020 and had vaccine active Jl Corey MD Primary biliary cirrhosis active Jl vidal MD mild Hypoalbuminemia completed - Jl Corey MD Elevated LFT's completed - Jl Corey MD Overweight active Jl Corey MD did not want wgoby Diastolic CHF active Jl Corey MD neg i danielle d id not want entersot a ffraid of jardicne Hypertension;neg duplex active Jl bowles MD Atrial fibrillation, chronic;tsh on rx active Jl Corey MD refuses blood thinners and watch man LBBB active Jl Corey MD ENCOUNTERS Date Type Provider Location Encounter Diag nosis - In-person encounter Office Visit Jl Corey MD [facility] Atrial fibrillation, chronic;tsh on rxDiastolic CHFOverweightPrimary biliary cirrhosisScreening - In-person encounter Office Visit Jl Corey MD [facility] Atrial fibrillation, chronic;tsh on rxHypertension;neg duplexElevated LFT'sHypoalbuminemiacovid and had vaccineFAMILY HISTORY OF HEART DISEASEHyperlipidemia;with high crp and lpa 117HypothyroidismScreening - In-person encounter Office Visit Jl Corey MD [facility] Primary biliary cirrhosis - In-person encounter Office Visit Jl Corey MD [facility] LBBBAtrial fibrillation, chronic;tsh on rxHypertension;neg duplexDiastolic CHFOverweight VITAL SIGNS Date Observation Value Provider Body Mass Index (Ratio) 28.79 kg/m2 Jacqui Corey MD blood pressure, cuff size regular Rajni Sparrow blood pressure, diastolic 101 mm[Hg] Rajni Sparrow blood pressure, systolic 154 mm[Hg] Sarita Emmanuel oxygen saturation, oximetry 93 % Charlette Sparrow pulse rate 73 /min Charlette Sparrow weight E&M 173 [lb_av] Charlette Sparrow height E&M 65 [in_i] Charlette Sparrow Body Mass Index (Ratio) 31.45 kg/m2 Jacqui Corey MD blood pressure, diastolic 112 mm[Hg] Cari Gordillo blood pressure, systolic 187 mm[Hg] Sharla Gordillo oxygen saturation, oximetry 94 % Sara Katy respiratory rate E&M 94 /min Sara Katy pulse rate 72 /min Sara Katy weight E&M 189 [lb_av] Sara Katy height E&M 65 [in_i] Sara Katy blood pressure, cuff size regular Cari baca Gordillo Body Mass Index (Ratio) 30.78 kg/m2 Jacqui Corey MD blood pressure, cuff size regular Ta bitha Echols blood pressure, diastolic 94 mm[Hg] Ta bitha Echols blood pressure, systolic 152 mm[Hg] Tab itha Echols oxygen saturation, oximetry 94 % Merced Echols respiratory rate E&M 12 /min Merced Echols pulse rate 69 /min Merced Echols weight E&M 185 [lb_av] Merced Echols height E&M 65 [in_i] Merced Echols Body Mass Index (Ratio) 31.61 kg/m2 Jacqui Corey MD blood pressure, diastolic 86 mm[Hg] Betty nkLog blood pressure, systolic 124 mm[Hg] Eileen kLog blood pressure, cuff size regular Ta bitha Echols blood pressure, diastolic 86 mm[Hg] Ta bitha Echols blood pressure, systolic 124 mm[Hg] Tab itha Echols oxygen saturation, oximetry 96 % Merced Echols pulse rate 83 /min Merced Echols weight E&M 190 [lb_av] Merced Echols height E&M 65 [in_i] Merced Echols respiratory rate E&M 12 /min Merced Echols ALLERGIES Allergy Name Onset Date Reaction Criticality Status INPE Abdominal pain and cramping High Cri ticality active XARELTO Nosebleeds High Criticality active PAIN MEDICATIONS OTC High Criticalit y active CODEINE High Criticality active CONTRAST DYE High Criticality active RESULTS Date Observation Value Provider Reference Range Interpretation Location 1 free thyroxine index 3.0 [facility] 1.2-4.9 1 triiodothyronine resin uptake 30 % [facility] 24-39 1 thyroxine, serum, total 10.0 ug/dL [facility] 4.5-12.0 1 thyroid stimulating hormone, serum 6.250 u[IU]/mL [facility] 0.450-4.500 High 1 c-reactive protein, quantitative, serum 7.54 mg/L [facility] 0.00-3.00 High 1 ferritin, serum 224 ng/mL [facility] 15-150 High 1 iron saturation percent, serum 12 % [facility] 15-55 Low 1 iron, serum 33 ug/dL [facility] 27-139 1 iron binding capacity, unsaturated 250 ug/dL [facility] 678-361 6817/10/3 1 iron binding capacity, total 283 ug/dL [facility] 021-033 1702/10/3 1 microalbumin/creatin ine ratio, urine 49 MG/G CREAT [facility] 0-29 High 1 microalbumin, random, urine 2.39 mg/dL [facility] Units converted. See lab report for original value. 1 creatinine, random, urine 48.4 mg/dL [facility] Not Estab. 1 lipoprotein, beta, serum, point, quantitative, calculated 86 mg/dL [facility] 0-99 1 HDL cholesterol, serum 78 mg/dL [facility] >39 1 triglyceride, serum, random 56 mg/dL [facility] 0-149 1 cholesterol, serum 175 mg/dL [facility] 841-505 9672/10/3 1 hemoglobin A1C, blood, as % of total hemoglobin 5.5 % [facility] 4.8-5.6 1 basophil count, absolute 0.1 x10E3/uL [facility] 0.0-0.2 1 Eosinophil Absolute Count 0.3 X10E3/UL [facility] 0.0-0.4 1 monocyte count, blood, automated 0.9 X10E3/UL [facility] 0.1-0.9 1 lymphocyte count, blood, automated 0.6 X10E3/UL [facility] 0.7-3.1 Low 1 Absolute Neutrophils 7.6 X10E3/UL [facility] 1.4-7.0 High 1 basophils as percent of blood leukocytes 1 % [facility] Not Estab. 1 eosinophils as percent of blood leukocytes 3 % [facility] Not Estab. 1 monocytes as percent of blood leukocytes 10 % [facility] Not Estab. 1 lymphocytes as percent of blood leukocytes 6 % [facility] Not Estab. 1 neutrophils as percent of blood leukocytes 80 % [facility] Not Estab. 1 platelet count 332 X10E3/UL [facility] 048-728 2618/10/3 1 red blood cell distribution width 13.4 % [facility] 11.7-15.4 1 mean corpuscular hemoglobin concentration, RBC 32.4 G/DL [facility] 31.5-35.7 1 mean corpuscular hemoglobin, RBC 30.1 pg [facility] 26.6-33.0 1 mean corpuscular volume, RBC 93 fL [facility] 79-97 1 hematocrit, blood 40.8 % [facility] 34.0-46.6 1 hemoglobin, blood 13.2 g/dL [facility] 11.1-15.9 1 erythrocyte (RBC) count 4.38 X10E6/UL [facility] 3.77-5.28 1 leukocyte count, blood 9.5 X10E3/UL [facility] 3.4-10.8 2 magnesium, serum 2.1 mg/dL [facility] 1.6-2.3 2 prothrombin time (patient) 10.9 s [facility] 9.1-12.0 2 international normalized ratio (INR) 1.0 [facility] 0.9-1.2 2 calcium, serum 8.8 mg/dL [facility] 8.7-10.3 2 carbon dioxide, venous blood 23 mmol/L [facility] 20-29 2 chloride, serum 105 mmol/L [facility] 96-106 2 potassium, serum 4.6 mmol/L [facility] 3.5-5.2 2 sodium, serum 140 mmol/L [facility] 747-404 0261/10/2 2 urea nitrogen/creatinine ratio, serum 13 [facility] 12-28 2 creatinine, serum 1.00 mg/dL [facility] 0.57-1.00 2 urea nitrogen, blood 13 mg/dL [facility] 8-27 2 blood glucose, random 94 mg/dL [facility] 70-99 HISTORY OF MEDICATION USE Medication Status Instructions Dates Provider Indications Com ments losartan 25 mg tablet active TAKE 1 TABLET BY MOUTH EVERY DAY Jl Corey MD potassium chloride 20 mEq tablet extended release active Jl Corey MD furosemide 40 mg tablet active Jl Corey MD Jardiance 10 mg tablet completed TAKE 1 TABLET BY MOUTH EVERY DAY - Charlettejayant Sparrow Entresto 49-51 mg tablet completed Take 1 tablet by mouth twice a day - Charlette Sparrow Wegovy 0.25 mg/0.5 mL pen injector completed Inject 1 pen injector subcutaneously once a week - [facility] Specialist losartan 25 mg tablet completed Take 1 tablet by mouth once daily - Jl Corey MD trazodone 100 mg tablet active Merced Echols Xarelto 20 mg tablet completed Take 1 tablet by mouth once a day - Merced Echols Xarelto 15 mg tablet completed TAKE 1 TABLET BY MOUTH EVERY DAY - Radha Owenmiglgiovanni BURKSP Inpefa 200 mg tablet completed Take 1 tablet by mouth once a day - Merced Echols levothyroxine 200 mcg tablet active Radha Owenmiglia STILL OPERATOR BATCH OR CONTINUOUS Klor-Con M20 20 mEq tablet,ER particles/twan ls completed - Radhabrittney Owenmiglgiovanni BURKSP furosemide 40 mg tablet completed - Radha Owenmiglia MELISSA albuterol sulfate 90 mcg/actuation HFA aerosol inhaler active Radha Owenmiglia STILL OPERATOR BATCH OR CONTINUOUS metoprolol succinate 50 mg tablet extended release 24 hr active Radha Wattsglgiovanni BURKSP SOCIAL HISTORY Date Observation Value Provider personal history of marijuana use no Jl Corey MD drug use no Jl Kumar alcohol use no Jl Kumar smoking status Never smoker Jl Corey MD personal history of marijuana use no Jl Corey MD drug use no Jl Kumar alcohol use no Jl Kumar smoking status Never smoker Jl Corey MD personal history of marijuana use no Radha Owenmiglia STILL OPERATOR BATCH OR CONTINUOUS drug use no Radha Ventimig geraldine STILL OPERATOR BATCH OR CONTINUOUS alcohol use no Radha Ventimig geraldine STILL OPERATOR BATCH OR CONTINUOUS smoking status Never smoker Radha Gutierrez iglgiovanni BURKSP FAMILY HISTORY Family Member Condition Full Brother CAD male <55 Father Stroke/CVA INSURANCE PROVIDERS Payer name Policy type / Coverage type [place] red green party ID [employer] MEDICARE JUDIE PPO Medicare [id number] 500 ADVANCE DIRECTIVES Name Date DISCUSSED - NO DECISION MADE TREATMENT PLAN Date Name Performer Cardiology Jl Corey MD Cardiology Jl Corey MD Cardiology: M ILLD LA AND SEVERE TR ADN MILD AND MILD MR Jl Corey MD Cardiology Jl Corey MD Cardiology Jl Corey MD Cardiology Jl Corey MD Cardiology Jl Corey MD Cardiology: n eg ct brai and aaa a1c 5.5 Jl Corey MD Cardiology: 4 9 Jl Corey MD Cardiology: 5 7 Jl Corey MD :49 Jl Corey MD :neg ct brai and aaa a1c 5.5 Burak Corey MD Cardiology:neg ct freida negg aaa Jl Corey MD Cardiology Jl Corey MD Cardiology: 5 8 Jl Corey MD Cardiology: 5 7 Jl Corey MD Cardiology Jl Corey MD Cardiology Jl Corey MD Cardiology: 3 040 EF 55 Jl Corey MD Cardiology: M ILLD LA AND SEVERE TR ADN MILD AND MILD MR Jl Corey MD Cardiology: c hronic rate controlled p atient had nosebleeds with xarelto s he refuses all AC W e did discuss risk of stoke and she verbalized understanding H er updated medication list for this problem includes: Metoprolol Succinate 50 Mg Tablet Extended Release 24 Hr (Metoprolol succinate) Jl Corey MD Cardiology Jl Corey MD :MILLD LA AND SEVERE TR ADN MILD AND MILD MR Jl Corey MD :58 Jl Corey MD :3040 EF 55 Jl Corey MD :57 Jl Corey MD Cardiology:with asso ciated SOB with minimal exertion. p lanned for stress test to r/o ischemia H er updated medication list for this problem includes: Metoprolol Succinate 50 Mg Tablet Extended Release 24 Hr (Metoprolol succinate) [facility] Cardiology:egfr of 5 3 on last labs W ill do renal duplex [facility] Cardiology:LFTs only mildly elevated on last labs [facility] Cardiology:BP above goal will add losartan H er updated medication list for this problem includes: Losartan 25 Mg Tablet (Losartan) ..... Take 1 tablet by mouth once daily Metoprolol Succinate 50 Mg Tablet Extended Release 24 Hr (Metoprolol succinate) [facility] Cardiology:chronic r ate controlled p atient had nosebleeds with xarelto s he refuses all AC W e did discuss risk of stoke and she verbalized understanding H er updated medication list for this problem includes: Metoprolol Succinate 50 Mg Tablet Extended Release 24 Hr (Metoprolol succinate) [facility] Cardiology: 3 040, ef 65 S he has continued SOB with minimal activity l ast echo 07/2022 at [facility]SH W ill upadat echo [facility] :41 Jl Corey MD :3040, ef 65 Jl Corey MD :53 Jl Corey MD Cardiology:weight loss encourage d [facility] Cardiology:controlle d T he following medications were removed from the medication list: Furosemide 40 Mg Tablet (Furosemide) Her updated medication list for this problem includes: Metoprolol Succinate 50 Mg Tablet Extended Release 24 Hr (Metoprolol succinate) [facility] Cardiology:patient h as SOB with minimal activity E cho from OSH showed EF of 64% with mild LAE C oncern for diastolic HF with history of elevated pBNP w ill get OSH records W ill plan for nuclear stress test to evaluate for ischemia C annot ambulate as uses a WC T he following medications were removed from the medication list: Furosemide 40 Mg Tablet (Furosemide) & #13;Her updated medication list for this problem includes: Metoprolol Succinate 50 Mg Tablet Extended Release 24 Hr (Metoprolol succinate) Radha Murillo STILL OPERATOR BATCH OR CONTINUOUS Cardiology:rate cont rolled on metoprolol c oncern contibuting to her SOB W ill add xarelto for AC p gwyn tele monitor g et recent labs and echo from OS R eturn post testing H er updated medication list for this problem includes: Metoprolol Succinate 50 Mg Tablet Extended Release 24 Hr (Metoprolol succinate) Radha Murillo [facility] Date Name Complete Echo Stress Regadenoson CT, Coronary Calcium Score Holter Monitor 24 Hr TSH, free T4, total T3 RPM (remote patient monitoring) Kidney Ultrasound myocardial blood elissa w (PET) Stress Cardiac PET-C T CT, Coronary Calcium Score HEMOGLOBIN A1c Microalb/Creatinine Urine, Random IRON AND TOTAL IRON BINDING CAPACITY FERRITIN CBC (INCLUDES DIFF/P LT) LIPID PANEL CRP, high sensitivit y Lipoprotein (a) Holter Monitor 24 Hr Microalb/Creatinine Urine, Random Complete Echo Renal Artery Duplex Kidney Ultrasound Complete Echo MAGNESIUM BASIC METABOLIC PANE L W/EGFR PROTHROMBIN TIME WIT H INR Stress Regadenoson Holter Monitor 24 Hr HISTORY OF PROCEDURES Procedure Date Procedure Name Provider Procedure Notes S tatus Complex e/m visit ad d on Jl Corey MD completed Complex e/m visit ad d on Jl Corey MD [04/19/2024 - rose] AUTH DENIED [ 04/11/2024 - rose] PENDING [ 04/02/2024 - roxie] completed SATINDER Corey MD complete d
--- OUTSIDE RECORDS SUMMARY | 2024-07-11 11:30 | XMS_ITS | Referral Summary ---
Author Organization [facility] Address [facility] [facility] [address] Care Team Providers Care Bagger Meat Name Role Phone Hasmukh Gonzalez MD Primary Care Provider Unavail able Source Comments [facility],non-owned Affiliates and Associated Physician Practices is amultiple site organization consisting of ambulatory clinics and hospital sitesin [place], [place] and [place]. This disclosure is being madepursuant to the Care Everywhere program and may not contain all information available regarding this patient. Last updated 18.[facility] Allergies Active Allergy Reactions Criticality Noted Date Comments Codeine Nausea and/or Vomiting,Headache 09/02/2017 Contrast-Iodinated Agents For Ct/Other Anaphylaxis,Rash High 09/02/2017 heart stopped Medications * Be aware that medications may not be up to date on this document. Alwaysverify current medications with the patient. Medication Sig Dispensed Refills Start Date End Date Status vilazodone (VIIBRYD) 10 MG tablet Take 10 mg by mouth daily with breakfast Active metoprolol tartrate (LOPRESSOR) 25 MG tablet Take 25 mg by mouth 2 times daily Active chlorthalidone (HYGROTON) 25 MG tablet Take 25 mg by mouth once daily Active ursodiol (ACTIGALL) 250 MG tablet Take 250 mg by mouth 2 times daily Active levothyroxine (SYNTHROID) 100 MCG tablet Take 100 mcg by mouth daily before breakfast Active Social History Tobacco Use Types Packs/Day Years Used Date Smoking Tobacco: Never Smokeless Tobacco: Never Alcohol Use Standard Drinks/Week Comments No 0 (1 standard drink = 0.6 oz pur e alcohol) Sex and Gender Information Value Date Recorded Sex Assigned at Not on file Gender Identity Not on file Sexual Orientation Not on file Last Filed Vital Signs Vital Sign Reading Time Taken Comments Blood Pressure 164/93 09/06/2017 1:40 PM CDT Pulse 72 09/06/2017 1:31 PM CDT Temperature 36.9 ??C (98.4 ??F) 09/06/2017 1:30 PM CD T Respiratory Rate 14 09/06/2017 1:31 PM CDT Oxygen Saturation 98% 09/06/2017 1:33 PM CDT Inhaled Oxygen Concentration - - Weight 88.9 kg (196 lb) 09/06/2017 11:30 AM CDT Height 165.1 cm (5' 5 ) 09/06/2017 11:30 AM CDT Body Mass Index 32.62 09/06/2017 11:30 AM CDT Functional Status Functional Status Response Date of Assess ment Is person deaf or have serious hearing difficult y? No 09/06/2017 Is person blind or have serious difficulty seein g? No 09/06/2017 Does person have serious dif ficulty walking/climbing stairs? No 09/06/2017 Does person have difficulty dressing/bathing? No 09/06/2017 Does person have difficulty doing errands alone? No 09/06/2017 Cognitive Status Response Date of Assessm ent Does person have difficulty concentrating/remembering/making decisions? No 09/06/2017 Plan of Treatment Not on file Medical Devices Implanted Type Area Instrument Lens Grinder Apprentice Device Identifier Shelf Expiration Date Model / Serial / Lot Wire K .035 X 5.5in Implanted:Qty: 2 on 09/06/2017 by Venice Dueñas MD at [facility] Left: Finger [employer] 1346-002-0 00 / / Description:left index derike r Care Teams Bagger Meat Relationship Specialty Start Date End Date Hasmukh Gonzalez MD PCP - General Internal Medicine 08/18/17
--- OUTSIDE RECORDS SUMMARY | 2024-07-11 11:30 | XMS_ITS | Clinical Summary ---
Author Organization [facility] Address [facility] [place] [address] Care Team Providers Care Christian Ministries Professor Name Role Phone Hasmukh Gonzalez MD Primary Care Provider Unavail able Source Comments [facility],non-owned Affiliates and Associated Physician Practices is amultiple site organization consisting of ambulatory clinics and hospital sitesin [place], [place], [place] and [place]. This disclosure is being madepursuant to the Care Everywhere program and may not contain all information available regarding this patient. Last updated 18.[facility] Allergies Active Allergy Reactions Criticality Noted Date [...] Mass Index 32.62 09/06/2017 11:30 AM CDT Plan of Treatment Health Maintenance Due Date Last Done Comments BONE DENSITY TESTING 1940 MEDICARE AWV ? 12 MONTHS 1940 DTAP/TDAP/TD VACCINES (1 - Tdap) 1961 PNEUMOCOCCAL VACCINE 50+ (1 of 1 - PCV) 1992 ZOSTER VACCINE (1 of 2) 1992 Respiratory Syncytial Virus (RSV) Vaccine Pt: or over 60 yrs (1 - 1-dose 75+ series) 2017 COVID-19 VACCINE ( - 2023-2 5 season) 2024 INFLUENZA VACCINE (#1) 2024 DEPRESSION SCREENING 06/06/2024 HEPATITIS B VACCINE Aged Out No longe r eligible based on patient's age to complete this topic HIB VACCINE Aged Out No longer eligi ble based on patient's age to complete this topic HPV VACCINE Aged Out No longer eligi ble based on patient's age to complete this topic MENINGOCOCCAL (Group B) VACCINE Aged Out No longer eligible based on patient's age to complete this topic MENINGOCOCCAL VACCINE Aged Out No juliane kenya eligible based on patient's age to complete this topic Medical Devices Implanted Type Area Cooker Process Cheese Device Identifier Shelf Expiration Date Model / Serial / Lot Wire K .035 X 5.5in Implanted:Qty: 2 on 09/06/2017 by Venice Dueñas MD at [facility] Left: Finger [employer] 1346-002-0 00 / / Description:left index finge r Care Teams Christian Ministries Professor Relationship Specialty Start Date End Date Hasmukh Gonzalez MD PCP - General Internal Medicine 08/18/17
--- OUTSIDE RECORDS SUMMARY | 2024-07-11 11:30 | XMS_ITS | Continuity of Care Document ---
Author Organization [facility] Address [address] [place] [address] Phone Care Team Providers Care Commodities Manager Name Role Phone [facility] Unavailable [...] Diagnoses Date Provider Providers Copied on Encounter [facility], [address], [place], [place], [id number], [place] tel:[phone] [facility] No Information Feb- 0 [facility] . [address], [address], [place], [place], [id number], [place]. tel:[phone] Referring Provider: Pamela Valle, [address], [place], [address]. tel:[phone] wadsworth Provider: Lucita Laura, [address] [place] [address], [address]. tel:[phone] Office/outpat ient Visit, Est [facility], [address], [place], [place], [id number], [place] tel:[phone] [facility] No Information Sep- 4-201 0 Odilia Santiago. [address], [address], [place], [address], [place]. tel:[phone] [facility], [address], [place], [place], [id number], [place] tel:[phone] [facility] No Information Apr-2 4-200 9 Odilia Santiago. [address], [address], [place], [place], [facility], [place]. tel:[phone] [facility], [address], [place], [place], [id number], [place] tel:[phone] [facility] No Information Dec-2 9-200 8 [facility] . [address], [address], [id number], [place]. tel:[phone] Consulting Provider: Mariah Bolden, [address] [place] [address], [address]. tel:[phone] [facility], [address], [place], [place], [id number], [place] tel:[phone] [facility] No Information Aug-0 8-200 8 [facility] . [address], [address], [place], [place], [id number], [place]. tel:[phone] Consulting Provider: Mariah Bolden, [address] [place] [address], [facility]. tel:[phone] [facility], [address], [place], [place], [id number], tel:[phone] [facility] No Information Jan-0 8-200 8 Odilia Evans [address] , [address], [place], [place], [facility], . tel:[phone] [facility], [address], [place], [place], [id number], tel:[phone] [facility] No Information 0 2200 8 [facility] . [address], [address], [place], [place], [id number], . tel:[phone] Referring Provider: Pamela Valle, [address], [place], [place], [facility]. tel:[phone] g Provider: Mariha Bolden, [address], [place], [facility]. tel:[phone] [facility], [address] [place] [address] [address], [place], [place], [id number], tel:[phone] [facility] No Information 0 1200 8 Odilia Evans [address] , [address], [place], [place], [facility], . tel:[phone] [facility], [address] [place] [address] [address], [place], [place], [id number], tel:[phone] [facility] No Information 200 7 Odilia Evans [address] , [address], [place], [place], [facility], . tel:[phone] Family History Family Member Type Diagnosis Age [...]
--- OUTSIDE RECORDS SUMMARY | 2024-07-11 11:30 | XMS_ITS | Patient Health Summary ---
Author Organization [facility] Address [facility] [facility] [place] [address] Care Team Providers Care Geology Faculty Member Name Role Phone Hasmukh Gonzalez MD Primary Care Provider Unavail able Note from [facility],non-owned Affiliates and Associated Physician Practices is amultiple site organization consisting of ambulatory clinics and hospital sitesin [place], [place], [place] and [place]. This disclosure is being madepursuant to the Care Everywhere program and may not contain all information available regarding this patient. Last updated 18.[facility] Allergies * Codeine(Nausea and/or Vomiting,Headache) * Contrast-Iodinated Agents For Ct/Other(Anaphylaxis,Rash) -High Criticality Medications * Be aware that medications may not be up to date on this document. Alwaysverify current medications with the patient. * vilazodone (VIIBRYD) 10 MG tablet Take 10 mg by mouth daily with breakfast * metoprolol tartrate (LOPRESSOR) 25 MG tablet Take 25 mg by mouth 2 times daily * chlorthalidone (HYGROTON) 25 MG tablet Take 25 mg by mouth once daily * ursodiol (ACTIGALL) 250 MG tablet Take 250 mg by mouth 2 times daily * levothyroxine (SYNTHROID) 100 MCG tablet Take 100 mcg by mouth daily before breakfast Social History Tobacco Use Types Packs/Day Years [...] Mass Index 32.62 09/06/2017 11:30 AM CDT Medical Devices Implanted Type Area Automotive Diagnostic Technician Device Identifier Shelf Expiration Date Model / Serial / Lot Wire K .035 X 5.5in Implanted:Qty: 2 on 09/06/2017 by Venice Dueñas MD at [facility] Left: Finger Heyy 1346-002-0 00 / Description:left index finge r Procedures * FL WILBER SURGERY LESS 60 MIN(Performed 09/06/2017) Performed for Pain * ARTHRODESIS/FUSION INTERPHALANGEAL JOINT (FINGER)(Performed 09/06/2017) Performed for Arthritis of right hand * XR HAND LEFT 3VW OR MORE(Performed 08/18/2017) Performed for Arthritis of left hand Results * FL WILBER SURGERY LESS 60 MIN (09/06/2017 1:25 PM CDT) Anatomical Region Laterality Modality Radiographic Prisca ging 09/06/2017 1:2 8 PM CDT Narrative 09/06/2017 1:26 PM CDT Fluoroscopy limited INDICATION: Hand pain 1.75 seconds fluoroscopy was provided. 7 spot fluoroscopic images were retained by the surgeon. Procedure Note Ambika Uriarte MD - 09/06/2017 Fluoroscopy limited INDICATION: Hand pain 1.75 seconds fluoroscopy was provided. 7 spot fluoroscopic images were retained by the surgeon. Venice Dueñas MD FLUOROSCOPY ORDERABL ES * XR HAND LEFT 3VW OR MORE (08/18/2017 10:24 AM CDT) Anatomical Region Laterality Modality Wrist / Hand Radiographic Prisca ging 08/18/2017 3:22 PM CDT Narrative 08/18/2017 3:24 PM CDT Left Hand 3 Views INDICATION: Left-sided hand and joint pain FINDINGS: ??At the second digit DIP joint and to a much lesser extent third digit DIP joint there is erosive change at the articulation, question erosive osteoarthritis or possibly gout. The trapezium has been partially resected. Remaining joint spaces are preserved. No fracture. Procedure Note Binu Castañeda MD - 08/18/2017 Left Hand 3 Views INDICATION: Left-sided hand and joint pain FINDINGS: At the second digit DIP joint and to a much lesser extent third digit DIP joint there is erosive change at the articulation, question erosive osteoarthritis or possibly gout. The trapezium has been partially resected. Remaining joint spaces are preserved. No fracture. S. Porfirio Dueñas MD DIAGNOSTIC IMAGING O RDERABLES Care Teams Geology Faculty Member Relationship Specialty Start Date End Date Hasmukh Gonzalez MD PCP - General Internal Medicine 08/18/17
== END 2024-07-11 10:23 | disposition home or self-care (01) ==
PROVIDERS: PCP Nurse Practitioner; Visit Provider Nurse Practitioner
DX: R39.9 Unspecified symptoms and signs involving the genitourinary system (principal)
CPT/HCPCS: 81001; 87086

== ENCOUNTER 2024-07-13 12:36 | Emergency (ER) | payer MEDICARE, SELFPAY ==
--- NOTE | ~2024-07-13 | XR_ITS ---
EXAMINATION: XR chest 2V DATE: 07/13/2024 14:43 INDICATION: Shortness of breath. Congestive heart failure. TECHNIQUE: Frontal and lateral views of the chest were obtained. COMPARISON: Chest single view 04/20/2024 FINDINGS: There is a diffuse interstitial pattern, consistent with mild pulmonary edema. No pleural e ffusion or pneumothorax. Cardiomegaly is noted. IMPRESSION: 1. Mild pulmonary edema. 2. Cardiomegaly. Reviewed, dictated and finalized at location A. LBENZENE CONVERTER HELPER
--- OUTSIDE RECORDS SUMMARY | 2024-07-13 12:39 | XMS_ITS | CONTINUITY OF CARE DOCUMENT ---
Author Name alicja jeremyyesika Address Unknown Organization [facility] Address [address] [place] [address] Phone [phone] Care Team Providers Care Manager Industrial Name Role Phone Jl Corey MD Unavailable MARIYA DO, PAYAL Unavailable [phone] MARIYA DO, PAYAL Unavailable [phone] PROBLEMS Condition Status Date Provider Notes Microalbuminuria active Jl Corey MD Pulmonary hypertension active Jl Corey MD Valvular heart disease active Jl Corey MD Renal disease, chronic, mild;NEG DUPLEX and us active Jl Corey MD LBBB active Jl Corey MD Atrial fibrillation, chronic;tsh on rx active Jl Corey MD refuses blood thinners and watch man Hypertension;neg duplex active Jl bowles MD Diastolic CHF active Jl Corey MD neg i danielle d id not want entersot a ffraid of jardicne Overweight active Jl Corey MD did not want wgoby Elevated LFT's completed - Jl Corey MD Hypoalbuminemia completed - Jl Corey MD Primary biliary cirrhosis active Jl vidal MD mild covid 19;2020 and had vaccine active Jl Corey MD FAMILY HISTORY OF HEART DISEASE active Jl Corey MD Hyperlipidemia;with high crp and lpa 117 active Jl Corey MD Hypothyroidism active Jl Corey MD Screening active Jl Corey MD ENCOUNTERS Date Type Provider Location Encounter Diag nosis - In-person encounter Office Visit Jl Corey MD [facility] Atrial fibrillation, chronic;tsh on rxDiastolic CHFOverweightPrimary biliary cirrhosisScreening - In-person encounter Office Visit Jl Corey MD [facility] Atrial fibrillation, chronic;tsh on rxHypertension;neg duplexElevated LFT'sHypoalbuminemiacovid and had vaccineFAMILY HISTORY OF HEART DISEASEHyperlipidemia;with high crp and lpa 117HypothyroidismScreening - In-person encounter Office Visit Jl Corey MD [facility] Primary biliary cirrhosis - In-person encounter Office Visit Jl Corey MD [facility] LBBBAtrial fibrillation, chronic;tsh on rxHypertension;neg duplexDiastolic [...] Charlette Sparrow height E&M 65 [in_i] [facility] Body Mass Index (Ratio) 31.45 kg/m2 Jacqui Corey MD blood pressure, diastolic 112 mm[Hg] Cari Gordillo blood pressure, systolic 187 mm[Hg] Sharla Gordillo oxygen saturation, oximetry 94 % Sara [place] respiratory rate E&M 94 /min Sara [place] pulse rate 72 /min Sara [place] weight E&M 189 [lb_av] Sara [place] height E&M 65 [in_i] Sara [place] blood pressure, cuff size regular Cari baca [...] iron binding capacity, unsaturated 250 ug/dL [employer] [phone]/10/3 1 iron binding capacity, total 283 ug/dL [employer] [phone]/10/3 1 microalbumin/creatin ine ratio, urine 49 MG/G [...] 0-149 1 cholesterol, serum 175 mg/dL [employer] 397-596 8696/10/3 1 hemoglobin A1C, blood, as % of [...] Estab. 1 platelet count 332 X10E3/UL [employer] [phone]/10/3 1 red blood cell distribution width 13.4 [...] 3.5-5.2 2 sodium, serum 140 mmol/L [employer] [phone]/10/2 2 urea nitrogen/creatinine ratio, serum 13 [employer] [...] pen injector subcutaneously once a week - [facility] losartan 25 mg tablet completed Take [...] levothyroxine 200 mcg tablet active Radha Owenmiglia PRICING MANAGER Klor-Con M20 20 mEq tablet,ER particles/twan ls completed - Radhabrittney Owenmiglgiovanni BURKSP furosemide 40 mg tablet completed - Radha Owenmiglia MELISSA albuterol sulfate 90 mcg/actuation HFA aerosol inhaler active Radha Owenmiglia PRICING MANAGER metoprolol succinate 50 mg tablet extended release [...] history of marijuana use no Radha Owenmiglia PRICING MANAGER drug use no Radha Ventimig geraldine PRICING MANAGER alcohol use no Radha Ventimig geraldine PRICING MANAGER smoking status Never smoker Radha Gutierrez iglgiovanni BURKSP FAMILY HISTORY Family Member Condition Full Brother CAD male <55 Father Stroke/CVA INSURANCE PROVIDERS Payer name Policy type / Coverage type [place] party ID [employer] MEDICARE JUDIE PPO Medicare [id number] 500 ADVANCE DIRECTIVES Name Date DISCUSSED - NO DECISION MADE TREATMENT PLAN Date Name Performer Cardiology Jl Corey MD Cardiology Jl Corey MD Cardiology: M ILLD WI AND SEVERE TR ADN MILD AND MILD [...] 57 Jl Corey MD Cardiology: M ILLD WI AND SEVERE TR ADN MILD AND MILD [...] Corey MD Cardiology Jl Corey MD :MILLD WI AND SEVERE TR ADN MILD AND MILD MR Jl Corey MD :58 Jl Corey MD :3040 EF 55 Jl Corey MD :57 Jl Corey MD Cardiology:with asso ciated SOB with minimal exertion. p lanned for stress test to r/o ischemia H er updated medication list for this problem includes: Metoprolol Succinate 50 Mg Tablet Extended Release 24 Hr (Metoprolol succinate) [facility] Cardiology:egfr of 5 3 on last labs W ill do renal duplex [facility] Cardiology:LFTs only mildly elevated on last labs [facility] Cardiology:BP above goal will add losartan H er updated medication list for this problem includes: Losartan 25 Mg Tablet (Losartan) ..... Take 1 tablet by mouth once daily Metoprolol Succinate 50 Mg Tablet Extended Release 24 Hr (Metoprolol succinate) [facility] Cardiology:chronic r ate controlled p atient had nosebleeds with xarelto s he refuses all AC W e did discuss risk of stoke and she verbalized understanding H er updated medication list for this problem includes: Metoprolol Succinate 50 Mg Tablet Extended Release 24 Hr (Metoprolol succinate) [facility] Cardiology: 3 040, ef 65 S he has continued SOB with minimal activity l ast echo 07/2022 at [facility] ill upadat echo [facility] :41 Jl Corey MD :3040, ef 65 Jl Corey MD :53 Jl Corey MD Cardiology:weight loss encourage d [facility] Cardiology:controlle d T he following medications were removed from the medication list: Furosemide 40 Mg Tablet (Furosemide) Her updated medication list for this problem includes: Metoprolol Succinate 50 Mg Tablet Extended Release 24 Hr (Metoprolol succinate) [facility] Cardiology:patient h as SOB with minimal activity [...] Release 24 Hr (Metoprolol succinate) Radha Murillo PRICING MANAGER Cardiology:rate cont rolled on metoprolol c oncern contibuting to her SOB W ill add xarelto for AC p gwyn tele monitor g et recent labs and echo from [facility] post testing H er updated medication list for this problem includes: Metoprolol Succinate 50 Mg Tablet Extended Release 24 Hr (Metoprolol succinate) Radha Murillo [facility] Date Name Complete Echo Stress Regadenoson CT, [...]
--- OUTSIDE RECORDS SUMMARY | 2024-07-13 12:39 | XMS_ITS | Referral Summary ---
Author Organization [facility] Address [facility] [facility] [place] [address] Care Team Providers Care Switchman Name Role Phone Hasmukh Gonzalez MD Primary Care Provider Unavail able Source Comments [facility],non-owned Affiliates and Associated Physician Practices is amultiple site organization consisting of ambulatory clinics and hospital sitesin [place], [place], [place] and [place]. This disclosure is being madepursuant to the Care Everywhere program and may not contain all information available regarding this patient. Last updated 18.[facility] Allergies Active Allergy Reactions Criticality Noted Date [...] 72 09/06/2017 1:31 PM CDT Temperature 36.9 C (98.4 F) 09/06/2017 1:30 PM CDT Respiratory Rate 14 09/06/2017 1:31 PM CDT [...] on file Medical Devices Implanted Type Area Coiled Tubing Supervisor Device Identifier Shelf Expiration Date Model / Serial / Lot Wire K .035 X 5.5in Implanted:Qty: 2 on 09/06/2017 by Venice Dueñas MD at [facility] Left: Finger [employer] 1346-002-0 00 / / Description:left index finge r Insurance Payer Benefit Plan / Group Subscriber ID Effective Dates Phone Address Type MEDICARE MEDICARE PART A AND B [id number] Effective for all dates [address] [place] [address] Medicare [facility] BL[employer]OSS TRADITIONAL [id number] 2015-Jordan brito [address] [place] [address] PPO Care Teams Switchman Relationship Specialty Start Date End Date Hasmukh Gonzalez MD PCP - General Internal Medicine 08/18/17
--- OUTSIDE RECORDS SUMMARY | 2024-07-13 12:39 | XMS_ITS ---
Author Organization [facility] Address [address] [place] [address] Care Team Providers Care Rag Baler Name Role Phone Kirby Rodarte Primary Care Provider UnavailSophie Cool Unavailable [phone] Mackenzie Obando Unavailable [phone] REASON FOR VISIT ARC follow-up Encounters Encounter Location Date Provider Diagnosis [facility] [address] [place] [address] 08/10/2023 Mackenzie Obando Plan Of Treatment No Information Progress Notes * Bart ACKERMANOB:1940 (84 yo F)Acc No.[id number]:08/10/2023 Progress Notes Patient: Jenniffer WARD Provider: Robin Obando MD :1940 A ge:83 Y S ex:Female Date:08/10/2023 Address:[address], [id number] Pcp:Kirby Rodarte Subjective: * Chief Complaints: * 1 . [facility]C follow-up. * Medical History: Objective: * Vitals: Assessment: Plan: * Treatment: * Billing Information: * Visit Code: * Procedure Codes: * Electronic signature of Cony Obando MD on 07/13/2024 at 12:39 PM HUMANE AGENT Sign off status: Pending * Provider: Robin Obando MD Date: 0 08/10/2023 Generated for Giovanni corbin/Latricia/Praful on: 0 07/13/2024 12:39 PM HUMANE AGENT
--- OUTSIDE RECORDS SUMMARY | 2024-07-13 12:39 | XMS_ITS ---
Author Organization [facility] Address [address] [place] [address] Care Team Providers Care Director Perioperative Name Role Phone Anoop Robles Unavailable [phone] Agnieszka Sorenson Unavailable [phone] Allergies Allergen (clinical drug ingredient) Drug/Non Drug Allergy documented on EMR Reaction Allergy Type Onset Date Status Iodinated contrast media (substance) IODINATED CONTRAST MEDIA (uncoded) Unknown Allergy 07/07/2023 Active codeine Codeine Unknown Drug Allergy 07/07/2023 Active REASON FOR VISIT F/U RX Viibyrd Medications Medication SIG (Take, Route, Frequency, Duration) Notes Start Date End Date Status Klor-Con M20 20 MEQ Oral 07/07/2023 Active traZODone HCl 100 MG Oral 07/07/2023 Active Vilazodone HCl 40 MG 1 tablet with food Oral Once a day for 90 days Active Olopatadine HCl 0.1 % Ophthalmic 07/07/2023 Active Ursodiol 500 mg Oral 07/07/2023 Act francesca Furosemide 40 MG Oral 07/07/2023 Ac tive Metoprolol Succinate ER 50 MG Oral 07/07/2023 Active Levothyroxine Sodium 200 MCG Oral 07/07/2023 Active Social History Sex Assigned At : Social History Observation Description Sex Assigned At Female Vital Signs Respiratory Rate 18 /min 02/20/2024 Height 65.00 in 02/20/2024 Weight 190 lbs 02/20/2024 BMI 31.61 kg/m2 02/20/2024 Height-cm 165.10 cm 02/20/2024 Weight-kg 86.18 kg 02/20/2024 Encounters Encounter Location Date [facility] [address] [place] [address] 02/20/2024 Agnieszka Sorenson MDD (major depressiv e disorder), recurrent episode, mild F33.0 ; Generalized anxiety disorder F41.1 ; Primary insomnia F51.01 and Other amnesia R41.3 Assessments Encounter Date Diagnosis (ICD Code) Assessment Notes Treatment Notes Treatment Clinical Notes Section Notes 02/20/2024 MDD (major depressive disorder), recurrent episode, mild (ICD-10 - F33.0) 1. 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 recently has AFib Viibyrd 40 mg daily- having more depression and anxiety eat 350 calories with Viibryd SSRI side effects discussed including but not limited to, gastric upset, nausea, vomiting, diarrhea and/or constipation, weight changes, sexual side effects including loss of libido, increased suicidal thoughts/behavi ors in children and young adults, and serotonin syndrome educated on all medications, benefits, side effects and risk, and educated on depression, anxiety, and , mood d/o and educated on compliance of medications, appointment's, continue therapy discussion with patient about course of treatment and patient instructions. 2. Generalized anxiety disorder -Viibyrd 40 mg daily 3. Primary insomnia - Trazodone 100 mg night PCP prescribes 4. Memory impairment - monitor 02/20/2024 Generalized anxiety disorder (ICD-10 - F41.1) 1. 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 recently has AFib Viibyrd 40 mg daily- having more depression and anxiety eat 350 calories with Viibryd SSRI side effects discussed including but not limited to, gastric upset, nausea, vomiting, diarrhea and/or constipation, weight changes, sexual side effects including loss of libido, increased suicidal thoughts/behavi ors in children and young adults, and serotonin syndrome educated on all medications, benefits, side effects and risk, and educated on depression, anxiety, and , mood d/o and educated on compliance of medications, appointment's, continue therapy discussion with patient about course of treatment and patient instructions. 2. Generalized anxiety disorder -Viibyrd 40 mg daily 3. Primary insomnia - Trazodone 100 mg night PCP prescribes 4. Memory impairment - monitor 02/20/2024 Primary insomnia (ICD-10 - F51.01) 1. 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 recently has AFib Viibyrd 40 mg daily- having more depression and anxiety eat 350 calories with Viibryd SSRI side effects discussed including but not limited to, gastric upset, nausea, vomiting, diarrhea and/or constipation, weight changes, sexual side effects including loss of libido, increased suicidal thoughts/behavi ors in children and young adults, and serotonin syndrome educated on all medications, benefits, side effects and risk, and educated on depression, anxiety, and , mood d/o and educated on compliance of medications, appointment's, continue therapy discussion with patient about course of treatment and patient instructions. 2. Generalized anxiety disorder -Viibyrd 40 mg daily 3. Primary insomnia - Trazodone 100 mg night PCP prescribes 4. Memory impairment - monitor 02/20/2024 Other amnesia (ICD-10 - R41.3) 1. 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 recently has AFib Viibyrd 40 mg daily- having more depression and anxiety eat 350 calories with Viibryd SSRI side effects discussed including but not limited to, gastric upset, nausea, vomiting, diarrhea and/or constipation, weight changes, sexual side effects including loss of libido, increased suicidal thoughts/behavi ors in children and young adults, and serotonin syndrome educated on all medications, benefits, side effects and risk, and educated on depression, anxiety, and , mood d/o and educated on compliance of medications, appointment's, continue therapy discussion with patient about course of treatment and patient instructions. 2. Generalized anxiety disorder -Viibyrd 40 mg daily 3. Primary insomnia - Trazodone 100 mg night PCP prescribes 4. Memory impairment - monitor 02/20/2024 Other referral to the local chapter or national office of the Alzheimer's Association ( ; http://www.alz. org), the Alzheimer's Disease Education and Referral Center (ADEAR) ( ; http://www.halley. nih.gov/Alzheim ers/), 1. 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 recently has AFib Viibyrd 40 mg daily- having more depression and anxiety eat 350 calories with Viibryd SSRI side effects discussed including but not limited to, gastric upset, nausea, vomiting, diarrhea and/or constipation, weight changes, sexual side effects including loss of libido, increased suicidal thoughts/behavi ors in children and young adults, and serotonin syndrome educated on all medications, benefits, side effects and risk, and educated on depression, anxiety, and , mood d/o and educated on compliance of medications, appointment's, continue therapy discussion with patient about course of treatment and patient instructions. 2. Generalized anxiety disorder -Viibyrd 40 mg daily 3. Primary insomnia - Trazodone 100 mg night PCP prescribes 4. Memory impairment - monitor Plan Of Treatment Medication Medication Name Sig Start Date Stop Date Notes Vilazodone HCl 40 MG 1 tablet with food Oral Once a day for 90 days Treatment Notes Assessment Notes Other referral to the local chapter or national office of the Alzheimer's Association ( ; http://www.alz.org), the Alzheimer's Disease Education and Referral Center (ADEAR) ( ; http://www.halley.nih.gov/Alzheimers/), Next Appt Details Follow Up: 6 Months, Reason: f/u Viibyrd Progress Notes * BRANT ACKERMANOB:1940 (83 yo F)Acc No.[id number]:02/20/2024 Patient: FINA WARD Provider: NATALI COSTA :1940 A ge:83 Y S ex:Female Date:02/20/2024 Address:[id number] Subjective: * Chief Complaints: * 1 . F/U RX Viibyrd. 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 they used agent orange in house and DEET and sprayed everything down and dripped from luna when I was young and all furniture also sprayed with it all, and I feel depresion and anxiety is a lot better I neede increase Viibyrd, and back hoem now 01/21/24 and doing good and has beginning stage dementia and I do not have much energy with heart and S itting in W/C today I am much much better with the whelm and cry, no hopeless or helpless, Sleep would be good if I did not need bathroom and wear depends now r/t can not get there fast enough, doing good with kidney issues and appetite ok I eat with rx, weight stable, and concentration and focus good reading a lot and tv, ?memory been hit and miss, depends on day and a lot going on I see foot doctor today for nails, no psychosis no chauncey, no SI/HI, Medical MJ DROPS CBD gummi and hx oil is going great. 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 * ROS: David viji reports no fever, no significant weight gain, and no significant weight loss; hx h eadaches. She reports d ifficulty hearing; H EARING AIDS. She reports d ry mouth. 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 on 2 antibiotics She reports i ncomplete emptying b ut reports no difficulty urinating and no increased frequency. UTI presently on rx She reports a rthralgias/joint pain, back pain, and difficulty walking; W/C see chiropractor and foot provider neuropathy. Neurologic:: s ee chiropractor headaches She reports mild depression, sleep disturbances, restless sleep, mild anxiety, and memory loss b ut reports feeling safe in a relationship, no alcohol abuse, no hallucinations, no suicidal thoughts, no mood swings, and no agitation. Endocrine:: t hyroid. She reports wears glasses/contact lenses. She reports no cough and no shortness of breath. reported cirrohosis. * Medical History: David plattlems: Acute COVID-19, Generalized anxiety disorder, Memory impairment, Primary insomnia, Recurrent major depression, ,, AFIB, BILARY Cirrohosis. * Medications: T aking Metoprolol Succinate ER 50 MG Tablet Extended Release 24 Hour Oral , Taking Levothyroxine Sodium 200 MCG Tablet Oral , Taking Furosemide 40 MG Tablet Oral , Taking Klor-Con M20 20 MEQ Tablet Extended Release Oral , Taking traZODone HCl 100 MG Tablet Oral , Taking Olopatadine HCl 0.1 % Solution Ophthalmic , Taking Ursodiol 500 mg Tablet Oral , Taking Vilazodone HCl 40 MG Tablet 1 tablet with food Oral Once a day , Notes to Pharmacist: d/c 20 mg dose * Allergies: I ODINATED CONTRAST MEDIA: Allergy - Onset Date 07/07/2023, Codeine: Allergy - Onset Date 07/07/2023. Objective: * Vitals: R R:18/min, Wt:190lbs, Wt-k.18 kg, Ht: 65.00 in, Ht-cm: 165.10 cm, BMI:31.61Index, Body Surface Area: 1.99. * Examination: P sychiatry: Dementia . Appearance: w ell-groomed, well-nourished, appears stated age sitting in W/C. Abnormal body movements: n one. Affect / mood: a ppropriate, full range. Aggression: l ow. Anger control: g ood. Attention: g ood. Attitude: c ooperative. Homicidal ideation: n one. Suicidal ideation: n one. Memory status: n o impairment noted. Degree of awareness of surroundings: w ithin normal limits.? Delusions: n o. Hallucinations: n o. Impulse control: g ood. Insight: g ood. Intellectual functioning: a verage. Comprehension - Intellectual function: a verage. Judgement: g ood. Orientation: a wake, alert and oriented x 3. Perceptual disorders: n o perceptual disorder noted. Psychomotor activity: w ithin normal range w /c. Speech / language: a ppropriate pitch/modulation, clear and coherent, normal rate, volume, and articulation (RVR), proper grammar used. Thought content: a ppropriate. Thought process: i ntact. F unctional Assessment: Thompson Index of ADL . Physical Functioning . 1 point for independence, 0 for help. Assessment: * Assessment: 1. M DD (major depressive disorder), recurrent episode, mild - F33.0 (Primary) 2 . G eneralized anxiety disorder - F41.1 3 . P rimary insomnia - F51.01? 4. O ther amnesia - R41.3 1. 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 recently has AFib Viibyrd 40 mg daily- having more depression and anxiety eat 350 calories with Viibryd SSRI side effects discussed including but not limited to, gastric upset, nausea, vomiting, diarrhea and/or constipation, weight changes, sexual side effects including loss of libido, increased suicidal thoughts/behaviors in children and young adults, and serotonin syndrome educated on all medications, benefits, side effects and risk, and educated on depression, anxiety, and , mood d/o and educated on compliance of medications, appointment's, continue therapy discussion with patient about course of treatment and patient instructions. 2. Generalized anxiety disorder -Viibyrd 40 mg daily 3. Primary insomnia - Trazodone 100 mg night PCP prescribes 4. Memory impairment - monitor Plan: * Treatment: 2. O thers Notes: referral to the local [facility] office of the Alzheimer's Association ( ;http://www.alz.org), the Alzheimer'sDisease Education and Referral Center (ADEME) ( ;http://www.halley.nih.gov/Alzh kath/), * Procedure Codes: G 2211 VISIT COMPLEXITY INHERENT TO ONGOING CARE RELATED TO A PATIENT'S SINGLE, SERIOUS CONDITION OR A COMPLEX CONDITION * Follow Up: 6 Months (Reason: f/u Viibyrd) * Billing Information: * Visit Code: 40299 OFFICE OUTPATIENT VISIT 25 MINUTES DETAILED HISTORY AND EXAM/MODERATE MEDICAL DECISION MAKING. * Procedure Codes: G2211 VISIT COMPLEXITY INHERENT TO ONGOING CARE RELATED TO A PATIENT'S SINGLE, SERIOUS CONDITION OR A COMPLEX CONDITION. 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 they used agent orange in house and DEET and sprayed everything down and dripped from luna when I was young and all furniture also sprayed with it all, and I feel depresion and anxiety is a lot better I neede increase Viibyrd, and back hoem now 01/21/24 and doing good and has beginning stage dementia and I do not have much energy with heart and Sitting in W/C today I am much much better with the whelm and cry, no hopeless or helpless, Sleep would be good if I did not need bathroom and wear depends now r/t can not get there fast enough, doing good with kidney issues and appetite ok I eat with rx, weight stable, and concentration and focus good reading a lot and tv, memory been hit and miss, depends on day and a lot going on I see foot doctor today for nails, no psychosis no chauncey, no SI/HI, Medical MJ DROPS CBD gummi and hx oil is going great. 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 not driving now chronic pain DementiaReported by patient.Quality: short term memory loss; forgetting names or everyday words; difficulty with coordination (Cane) Severity: mild Onset/Timing: gradual onset Context: sleep disturbance Associated Symptoms: depression; anxiety; (normal) walking (cane)Notes:refuse medication remember childhood and sometimes have to stop and think about things RX HX Remeron, Viibryd, Trazodone Examination Category Sub-Category Detail Notes Category Not es Psychiatry Appearance: well-groomed, we ll-nourished, appears stated age sitting in W/C Attitude: cooperative Psychomotor activity: within normal rang e w/c Abnormal body movements: none Attention: good Degree of awareness of surroundings: wit hin normal limits Orientation: awake, alert and dung ented x 3 Affect / mood: appropriate, full ra nge Speech / language: appropriate pitch/mo dulation, clear and coherent, normal rate, volume, and articulation (RVR), proper grammar used Insight: good Judgement: good Thought process: intact Thought content: appropriate Perceptual disorders: no perceptual diso rder noted Aggression: low Anger control: good Suicidal ideation: none Homicidal ideation: none Intellectual functioning: average Impulse control: good Memory status: no impairment noted Delusions: no Hallucinations: no Comprehension - Intellectual function: a verage Dementia Safety concern scree keysha for dangerousness to self and environment risks provided:: Yes What action was taken to mitigate the risk?: Education provided Topics discussed for environmental risks:: Home safety risks that could arise from cooking or smoking, Access to firearms or other weapons, Access to potentially dangerous chemicals and other materials Topics discussed for dangerousness to self:: Medication misuse, Financial mismanagement Safety concern mitigation recommendation provided:: Not required Screening Result:: Negative Caregiver education and support provided : Yes Functional Assessment Thompson Index of ADL Score:: 6 1 point for independence, 0 for help 1 point for independence, 0 for help Physical Functioning Personal hygiene: i ncluding combing hair, brushing teeth, shaving, applying makeup, washing/drying face and hands (exclude baths and showers): Independent Bathing: how client takes fu ll-body bath/shower or sponge bath (exclude washing of back and hair). Includes how each part of body is bathed: arms, upper and lower legs, chest, abdomen, perineal area. (code for most dependent episode in last 7 days): Independent Dressing upper body: how cli ent dresses and undresses (street clothes, underwear) above the waist, includes prostheses, orthotics, fasteners, pullovers, etc.: Independent Dressing lower body: how cli ent dresses and undresses (street clothes, underwear), from the waist down, includes prostheses, orthotics, belts, pants, skirts, shoes, and fasteners: Independent (1) Eating - Including taking in food by any method, including tube feedings: Independent Toilet use: including using the toilet room or commode, bedpan, urinal, transferring on/off toilet, cleaning self after toilet use or incontinent episode, changing pad, managing any special devices required (ostomy or catheter), and adjusting clothes.: Independent Transfer: including moving t o and between surfaces--to/from bed, chair, wheelchair, standing position (excludes to/from bath/toilet): Independent Transportation: Great difficulty does no t drive in years Continence:: Independent (1) wear depend s
--- OUTSIDE RECORDS SUMMARY | 2024-07-13 12:39 | XMS_ITS | Patient Health Record ---
Author Organization [facility] Address [address] [place] [address] Care Team Providers Care Inspector Shells Name Role Phone Aster Kirby Primary Care Provider UnavailSophie Cool Unavailable [phone] Mackenzie Obando Unavailable [phone] ZZ-Migration, Provider Unavailable Unavailab le Allergies Allergen (clinical drug ingredient) Drug/Non Drug Allergy documented on EMR Reaction Allergy Type Onset Date Status CONTRAST DYE (uncoded) other reaction Allergy Active codeine Codeine stomach upset Drug Allergy Act francesca Reason For Referral No Information Medications Medication SIG (Take, Route, Frequency, Duration) Notes Start Date End Date Status VILAZODONE HYDROCHLORIDE 20 MG 1 TAB(S) ORALLY ONCE A DAY for 7 DAY(S) *Please review for potential replacement for e-prescription and drug interaction check* 07/13/2023 Active Ursodiol 500 MG 1 tab(s) orally twice a day for 30 days 07/13/2023 Active Furosemide 40 MG 1 tab(s) orally once a day Active Levothyroxine Sodium 200 MCG 1 tab(s) orally once a day for 30 day(s) 07/13/2023 Active Levocetirizine Dihydrochloride 5 MG 1 tab(s) orally once a day (in the evening) for 30 day(s) 07/13/2023 Active NASAL WASHES N/A DIRECTED INTRANASALLY NEEDED for 30 *Please review for potential replacement for e-prescription and drug interaction check* 07/13/2023 Active traZODone HCl 100 MG as directed orally 07/13/2023 Active Klor-Con 20 MEQ 1 ea orally 2 times a day for 30 day(s) 07/13/2023 Active Metoprolol Succinate ER 50 MG 1 tab(s) orally once a day Active LEVOCETIRIZINE 5 mg 1 tab(s) orally once a day (in the evening) for 30 day(s) 07/13/2023 Active URSODIOL 500 mg 1 tab(s) orally twice a day for 30 days 07/13/2023 Active KLOR-CON 20 mEq 1 ea orally 2 times a day for 30 day(s) 07/13/2023 Active TRAZODONE HYDROCHLORIDE 100 mg as directed orally 07/13/2023 A ctive METOPROLOL 50 mg 1 tab(s) orally once a day Active LEVOTHYROXINE SODIUM 200 mcg (0.2 mg) 1 tab(s) orally once a day for 30 day(s) 07/13/2023 Active FUROSEMIDE 40 mg 1 tab(s) orally once a day Active Social History Tobacco Use: Social History Observation Description Date Details (start date - stop date) Never Smoker NA - NA Smoking Smart Form: Question Answer Notes Are you a: never smoker Problems Problem Type SNOMED Code ICD Code Onset Dates Problem Status W/U Status Risk Notes Problem Chronic allergic conjunctivitis (40114571) Other chronic allergic conjunctivitis (H10.45) Active confirmed Problem Allergic rhinitis caused by pollen (disorder) (97296233) Allergic rhinitis due to pollen (J30.1) Active confirmed Problem Allergic rhinitis (78205613) Other allergic rhinitis (J30.89) Active confirmed Problem 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 confirmed Problem Allergic rhinitis caused by animal hair and dander (488878762387058) Allergic rhinitis due to animal (cat) (dog) hair and dander (J30.81) Active confirmed Vital Signs Oximetry 97 % 07/13/2023 Blood pressure diastolic 80 mm Hg 07/13/2023 Height 65 in 07/13/2023 Blood pressure systolic 143 mm Hg 07/13/2023 Weight 191.8 lbs 07/13/2023 BMI 31.91 kg/m2 07/13/2023 Encounters Encounter Location Date Provider Diagnosis [facility] [address] [place] [id number] 11/19/2023 Provider ZZ-Migration Allergic rhinitis due to pollen J30.1 [facility] [address] [place] [address] 07/13/2023 Mackenzie Obando Allergic rhinitis du e to pollen J30.1 ; Congenital perforated nasal septum Q30.3 ; Allergic rhinitis due to animal (cat) (dog) hair and dander J30.81 ; Other allergic rhinitis J30.89 and Other chronic allergic conjunctivitis H10.45 Assessments Encounter Date Diagnosis (ICD Code) Assessment Notes Treatment Notes Treatment Clinical Notes Section Notes 07/13/2023 Allergic rhinitis due to pollen (ICD-10 - J30.1) Given the history and symptoms, skin testing was performed to common aeroallergens to determine atopic status. clearly suffers from atopic disease based upon our skin testing and clinical history. Accordingly, we have introduced a new, aggressive medication regimen, discussed nasal washes and allergy-specific avoidance measures. We also discussed adjunctive therapies including subcutaneous, specific allergen immunotherapy as relates to the treatment and prevention of atopic disease. They are currently considering the risks, benefits and alternatives to this care. Risks: bleeding, infection, allergic reaction, anaphylaxis; Benefits: reduced need for medications, improved symptoms, disease modification. Alternatives: watch/wait, change medication regimen, improve allergy avoidance measures. Follow-up in 1 month for interval evaluation and management 07/13/2023 Congenital perforated nasal septum (ICD-10 - Q30.3) hold on nasal sprays at this time due to septal perforation. We discussed saline rinses and saline gel spray. Samples given 11/19/2023 Allergic rhinitis due to pollen (ICD-10 - J30.1) 07/13/2023 Allergic rhinitis due to animal (cat) (dog) hair and dander (ICD-10 - J30.81) Follow allergen avoidance, meds and consider SCIT as an adjunctive treatment to current regimen 07/13/2023 Other allergic rhinitis (ICD-10 - J30.89) Follow allergen avoidance, meds and consider SCIT as an adjunctive treatment to current regimen 07/13/2023 Other chronic allergic conjunctivitis (ICD-10 - H10.45) Given ocular signs and symptoms I encouraged allergy avoidance measures and meds as above. If symptoms persist, consider adding additional medications including intraocular antihistamine/mas t cell stabilizer, PRN and consider SCIT as an adjunctive measure Plan Of Treatment No Information Insurance Providers Payer Name Payer Address Payer Phone Subscriber Number Group Number Insured Name Patient Relationship to Insured Coverage Start Date Coverage End Date [employer] Choice POS II [address] [place] [address] [id number] Jenniffer Cm Self - patient is the insured Medical (General) History Medical History History ICD Code hypothyroidism primary biliary cirrhosis osteoarthritis heart murmur Surgical History Surgery Date(Month/Year) tubal ligation 1973 hysterectomy 1974 cholecystectomy 1987 knee replacements [id number] Hospitalization History Reason Date(Month/Year) pneumonia 07/2022 childbirth 1973 childbirth 1968 childbirth 1964 childbirth 1962
--- OUTSIDE RECORDS SUMMARY | 2024-07-13 12:39 | XMS_ITS | Patient Health Summary ---
Author Organization [facility] Address [facility] [place] [address] Care Team Providers Care Automatic Pinsetter Adjuster Name Role Phone Hasmukh Gonzalez MD Primary Care Provider Unavail able Note from [facility],non-owned Affiliates and Associated Physician Practices is amultiple site organization consisting of ambulatory clinics and hospital sitesin [place], [place], [place] and [place]. This disclosure is being madepursuant to the Care Everywhere program and may not contain all information available regarding this patient. Last updated 18.[facility] [employer] Allergies * Codeine(Nausea and/or Vomiting,Headache) * Contrast-Iodinated [...] AM CDT Medical Devices Implanted Type Area Coater Associate Device Identifier Shelf Expiration Date Model / Serial / Lot Wire K .035 X 5.5in Implanted:Qty: 2 on 09/06/2017 by Venice Dueñas MD at [facility] Left: Finger [employer] [id number] 00 / / Description:left index finge r Procedures * [...] S. Porfirio Dueñas MD DIAGNOSTIC IMAGING [facility] Care Teams Automatic Pinsetter Adjuster Relationship Specialty Start Date End Date Hasmukh Gonzalez MD PCP - General Internal Medicine 08/18/17
[2024-07-13 12:40] VITALS: BP 185/83; PULSE 59; RESP 20; TEMP 36.5; O2SAT 96
--- OUTSIDE RECORDS SUMMARY | 2024-07-13 12:40 | XMS_ITS ---
Author Organization [facility] [employer] Address [address] [place] [address] Care Team Providers Care Cnc Set Up Operator Name Role Phone Anoop Robles Unavailable [phone] Agnieszka Sorenson Unavailable [phone] Allergies Allergen (clinical drug ingredient) Drug/Non Drug Allergy documented on EMR Reaction Allergy Type Onset Date Status Iodinated contrast media (substance) IODINATED CONTRAST MEDIA (uncoded) Unknown Allergy 07/07/2023 Active codeine Codeine Unknown Drug Allergy 07/07/2023 Active REASON FOR VISIT Follow Up Medications Medication SIG (Take, Route, Frequency, Duration) Notes Start Date End Date Status Ursodiol 500 mg Oral 07/07/2023 Act francesca Vilazodone HCl 40 MG 1 tablet with food Oral Once a day for 90 days d/c 20 mg dose 07/07/2023 Active Metoprolol Succinate ER 50 MG Oral 07/07/2023 Active Levothyroxine Sodium 200 MCG Oral 07/07/2023 Active Furosemide 40 MG Oral 07/07/2023 Ac tive Olopatadine HCl 0.1 % Ophthalmic 07/07/2023 Active traZODone HCl 100 MG Oral 07/07/2023 Active Klor-Con M20 20 MEQ Oral 07/07/2023 Active Social History Sex Assigned At : Social History Observation Description Sex Assigned At Female Household Question Answer Notes Marital status: Problems Problem Type SNOMED Code ICD Code Onset Dates Problem Status W/U Status Risk Notes Problem [id number] MDD (major depressive disorder), recurrent episode, mild (F33.0) Active confirmed Problem Generalized anxiety disorder (07096757) Generalized anxiety disorder (F41.1) 02/01/202 4 Active confirmed Problem Primary insomnia (1279162) Primary insomnia (F51.01) 4 Active confirmed Problem Amnesia (71494220) Other amnesia (R41.3) 4 Active confirmed Vital Signs Blood pressure systolic 141 mm Hg 01/09/20 24 Blood pressure diastolic 84 mm Hg 024 Heart Rate 89 /min 01/09/2024 Height 65.00 in 01/09/2024 Weight 141.2 lbs 01/09/2024 BMI 23.49 kg/m2 01/09/2024 Height-cm 165.10 cm 01/09/2024 Weight-kg 64.05 kg 01/09/2024 Encounters Encounter Location Date Provider Diagnosis [facility] [employer] [facility] [address] [facility] [address] [place] [address] 01/09/2024 Agnieszka Sorenson MDD (major depressiv e disorder), recurrent episode, mild F33.0 ; Generalized anxiety disorder F41.1 ; Primary insomnia F51.01 and Other amnesia R41.3 Assessments Encounter Date Diagnosis (ICD Code) Assessment Notes Treatment Notes Treatment Clinical Notes Section Notes 01/09/2024 MDD (major depressive disorder), recurrent episode, mild (ICD-10 - F33.0) 1. Recurrent major depression - labs recently- will obtain increase Viibyrd 40 mg daily- having more depression [...] PCP prescribes 4. Memory impairment - monitor R41.3: Other amnesia 01/09/2024 Generalized anxiety disorder (ICD-10 - F41.1) 1. Recurrent major depression - labs recently- will obtain increase Viibyrd 40 mg daily- having more depression [...] PCP prescribes 4. Memory impairment - monitor R41.3: Other amnesia 01/09/2024 Primary insomnia (ICD-10 - F51.01) 1. Recurrent major depression - labs recently- will obtain increase Viibyrd 40 mg daily- having more depression [...] PCP prescribes 4. Memory impairment - monitor R41.3: Other amnesia 01/09/2024 Other amnesia (ICD-10 - R41.3) 1. Recurrent major depression - labs recently- will obtain increase Viibyrd 40 mg daily- having more depression [...] PCP prescribes 4. Memory impairment - monitor R41.3: Other amnesia Plan Of Treatment Medication Medication Name Sig Start Date Stop Date Notes Vilazodone HCl 40 MG 1 tablet with food Oral Once a day for 90 days 07/07/2023 d/c 20 mg dose Next Appt Details Follow Up: 6 Weeks, Reason: F/U RX increase Viibyrd Progress Notes * HOLLY ACKERMANEDOB:1940 (83 yo F)Acc No.[id number]:01/09/2024 Patient: FINA WARD Provider: NATALI COSTA :1940 A ge:83 Y S ex:Female Date:01/09/2024 Address:[address] [place] [address], [id number] Subjective: * Chief Complaints: * 1 . Follow Up. * HPI: H istory of Presenting Problem: Anxiety/Depression f/uReported by michael hallman.Quality: s ymptoms improved Severity: d enies suicidal ideations; able to maintain relationships; does not interfere with activities of daily living Duration: i nfrequent; stablizing Onset/Timing: g radual Context: h ealth issues chronic moving out assisted living soon Modifying Factors: m edications as directed Associated Symptoms: d enies homicidal ideations; no significant weight gain; no significant weight loss; no visual/auditory hallucinations; no delusions; no shortness of breath; mood good; no crying spells; no panic; no isolation; appetite good; energy good; no apathy; maintaining functionality; a nxiety; s leep disturbances; d ecreased energy Notes: Medical and moving home Follow up depression and anxiety chronic since last visit 6 month f/u I been doing not best with having UTI and GI issues and on 2 anitobiotics and cause me diarrhea and I been on rx 1 week and 3 more days, stress level is getting to me, I cried yesterday afternoon, Miquel moving back home next week and had work done on home for handicap bathroom, I am still at [facility] and not good there, and not all bad, it i sbad enough I need to go home and health is failing he will be 88 years old and think he may have dementia. He is forgetting things, Sitting in W/C today I get over whelm then cry, remodel is done and having someone clean the house for me just so many things going on with me sick and providers appts, and tryign to pack is getting to me, I have help with packing, n o hopeless or helpless Sleep would be good if I did not need bathroom and wear depends now r/t can not get there fast enough, I am also having kidney issues and hearts act up and LLE swell up then, I see oiler and greaser next week, a nd appetite slack off and I eat with rx, weight stable, but part of it fluid, a nd concentration and focus good I play [employer] and read, tv, memory been pretty good, a nd not much energy no psychosis no chauncey, no SI/HI, Medical MJ DROPS CBD gummi and hx oil is going great. 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 chronic pain DementiaReported by michael hallman.Quality: s hort term memory loss; f orgetting names or everyday words; d ifficulty with coordination ( Cane) Severity: m ild Onset/Timing: g radual onset Context: s leep disturbance Associated Symptoms: d epression; a nxiety; (normal) walking (cane)Notes:refuse medication remember childhood and sometimes have to stop and think about things Major Depressive DisorderReported by michael hallman.Onset/Timing: a s long as patient can remember Severity: m ild Context: h istory of depression Modifying Factors: p sychotropic medication Associated Symptoms: p articipates in usual acitivities; no suicidal ideations; no hallucinations; no delusions; d ifficulty concentrating; f atigue; s leep disturbances RX HX Remeron, Viibryd, Trazodone. * ROS: Michael hallman reports no fever, no significant weight gain, and no significant weight loss; hx h eadaches. She reports d ifficulty hearing; H EARING AIDS. She reports d ry mouth. She reports no palpitations; H X CHF 12/22, SOB see oiler and greaser seeing oiler and greaser had heart monitor hx She reports no abdominal pain, no nausea, no vomiting, no constipation, normal appetite, and no GERD; o ccasional diarrhea. on 2 antibiotics She reports i ncomplete emptying b ut reports no difficulty urinating and no increased frequency. UTI presently on rx She reports a rthralgias/joint pain, back pain, and difficulty walking; W/C see chiropractor neuropathy. Neurologic:: s ee chiropractor headaches She reports d epression, sleep disturbances, restless sleep, anxiety, and memory loss b ut reports feeling safe in a relationship, no alcohol abuse, no hallucinations, no suicidal thoughts, no mood swings, and no agitation. Endocrine:: t hyroid. She reports wears glasses/contact lenses. She reports no cough and no shortness of breath. * Medical History: P roblems: Acute COVID-19, Generalized anxiety disorder, Memory impairment, Primary insomnia, Recurrent major depression, ,. * Social History: H ousehold: H ousehold M arital status: m arried. * Medications: T aking Metoprolol Succinate ER 50 MG Tablet Extended Release 24 Hour Oral , Taking Levothyroxine Sodium 200 MCG Tablet Oral , Taking Furosemide 40 MG Tablet Oral , Taking Klor-Con M20 20 MEQ Tablet Extended Release Oral , Taking traZODone HCl 100 MG Tablet Oral , Taking Vilazodone HCl 20 MG Tablet Oral , Taking Olopatadine HCl 0.1 % Solution Ophthalmic , Taking Ursodiol 500 mg Tablet Oral , Medication List reviewed and reconciled with the patient * Allergies: I ODINATED CONTRAST MEDIA: Allergy - Onset Date 07/07/2023, Codeine: Allergy - Onset Date 07/07/2023. Objective: * Vitals: B P:141/84mm Hg, HR:89/min, Wt:141.2lbs, Wt-k.05 kg, Ht: 65.00 in, Ht-cm: 165.10 cm, BMI:23.49Index, Body Surface Area: 1.71. * Examination: P sychiatry: Appearance: w ell-groomed, well-nourished, appears stated age [...] content: a ppropriate. Thought process: i ntact. Assessment: * Assessment: 1. M DD (major depressive disorder), recurrent episode, mild - F33.0 (Primary) 2 . G eneralized anxiety disorder - F41.1 3 . P rimary insomnia - F51.01? 4. O ther amnesia - R41.3 1. Recurrent major depressio n - labs recently- will obtain increase Viibyrd 40 mg daily- having more depression [...] and educated on compliance of medications, appointment's, c ontinue therapy d iscussion with patient about course of treatment and patient instructions. 2. Generalized anxiety disorder - Viibyrd 40 mg daily 3. Primary insomnia - Trazodone 100 mg night PCP prescribes 4. Memory impairment - monitor R41.3: Other amnesia Plan: * Treatment: * Procedure Codes: G 2211 VISIT COMPLEXITY INHERENT TO ONGOING CARE RELATED TO A PATIENT'S SINGLE, SERIOUS CONDITION OR A COMPLEX CONDITION * Follow Up: 6 Weeks (Reason: F/U RX increase Viibyrd) * Billing Information: * Visit Code: 48117 OFFICE OUTPATIENT VISIT 25 MINUTES DETAILED HISTORY AND EXAM/MODERATE MEDICAL DECISION MAKING. * Procedure Codes: G2211 VISIT COMPLEXITY INHERENT TO ONGOING CARE RELATED TO A PATIENT'S SINGLE, SERIOUS CONDITION OR A COMPLEX CONDITION. * Sign off status: Completed true * Provider: ANDREA COSTAP Date: 0 01/09/2024 Generated for Giovanni corbin/Latricia/Praful on: 0 07/13/2024 12:39 PM CONSTRUCTION TECHNOLOGY INSTRUCTOR History and Physical Notes * HPI (History of Present Illness) Category Sub-Category Detail Notes Category Not es History of Presenting Problem Anxiety/Depression f/uReported by patient.Quality: symptoms improved Severity: denies suicidal ideations; able to maintain relationships; does not interfere with activities of daily living Duration: infrequent; stablizing Onset/Timing: gradual Context: health issues chronic moving out assisted living soon Modifying Factors: medications as directed Associated Symptoms: denies homicidal ideations; no significant weight gain; no significant weight loss; no visual/auditory hallucinations; no delusions; no shortness of breath; mood good; no crying spells; no panic; no isolation; appetite good; energy good; no apathy; maintaining functionality; anxiety; sleep disturbances; decreased energy Notes: Medical and moving home Follow up depression and anxiety chronic since last visit 6 month f/u I been doing not best with having UTI and GI issues and on 2 anitobiotics and cause me diarrhea and I been on rx 1 week and 3 more days, stress level is getting to me, I cried yesterday afternoon, Miquel moving back home next week and had work done on home for handicap bathroom, I am still at [facility] and not good there, and not all bad, it i sbad enough I need to go home and health is failing he will be 88 years old and think he may have dementia. He is forgetting things, Sitting in W/C today I get over whelm then cry, remodel is done and having someone clean the house for me just so many things going on with me sick and providers appts, and tryign to pack is getting to me, I have help with packing, no hopeless or helpless Sleep would be good if I did not need bathroom and wear depends now r/t can not get there fast enough, I am also having kidney issues and hearts act up and LLE swell up then, I see oiler and greaser next week, and appetite slack off and I eat with rx, weight stable, but part of it fluid, and concentration and focus good I play bingo and read, tv, memory been pretty good, and not much energy no psychosis no chauncey, no SI/HI, Medical MJ DROPS CBD gummi and hx oil is going great. 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 chronic pain DementiaReported by patient.Quality: short term memory loss; forgetting names or everyday words; difficulty with coordination (Cane) Severity: mild Onset/Timing: gradual onset Context: sleep disturbance Associated Symptoms: depression; anxiety; (normal) walking (cane)Notes:refuse medication remember childhood and sometimes have to stop and think about things Major Depressive DisorderReported by patient.Onset/Timing: as long as patient can remember Severity: mild Context: history of depression Modifying Factors: psychotropic medication Associated Symptoms: participates in usual acitivities; no suicidal ideations; no hallucinations; no delusions; difficulty concentrating; fatigue; sleep disturbances RX HX Remeron, Viibryd, Trazodone Examination Category [...]
--- OUTSIDE RECORDS SUMMARY | 2024-07-13 12:40 | XMS_ITS ---
Author Organization [facility] Address [address] [place] [address] Care Team Providers Care Special Service Representative Name Role Phone Kirby Rodarte Primary Care Provider UnavailSophie Cool Unavailable [phone] ZZ-Migration, Provider Unavailable Unavailab le Allergies Allergen (clinical drug ingredient) Drug/Non Drug Allergy documented on EMR Reaction Allergy Type Onset Date Status CONTRAST DYE (uncoded) other reaction Allergy Active codeine Codeine stomach upset Drug Allergy Act francesca [facility] [place] Conversion Encounter Medications Medication SIG (Take, Route, Frequency, Duration) Notes Start Date End Date Status VILAZODONE HYDROCHLORIDE 20 MG 1 TAB(S) ORALLY ONCE A DAY for 7 DAY(S) *Please review for potential replacement for e-prescription and drug interaction check* 07/13/2023 Active Ursodiol 500 MG 1 tab(s) orally twice a day for 30 days 07/13/2023 Active Levothyroxine Sodium 200 [...] a day for 30 day(s) 07/13/2023 Active Encounters Encounter Location Date Provider Diagnosis [facility] [place] [address] [place] [address] 11/19/2023 Provider Lindsay Allergic rhinitis due to pollen J30.1 Assessments Encounter Date Diagnosis (ICD Code) Assessment Notes Treatment Notes Treatment Clinical Notes Section Notes 11/19/2023 Allergic rhinitis due to pollen (ICD-10 - J30.1) Plan Of Treatment Medication Medication Name Sig Start Date Stop Date Notes Levocetirizine Dihydrochloride 5 MG 1 tab(s) orally once a day (in the evening) for 30 day(s) 07/13/2023 NASAL WASHES N/A DIRECTED INTRANASALLY NEEDED for 30 07/13/2023 *Please review for potential replacement for e-prescription and drug interaction check* Progress Notes * Bart ACKERMANOB:1940 (84 yo F)Acc No.[id number]:11/19/2023 Patient: Jenniffer WARD Provider: David Jeffers :1940 A ge:83 Y S ex:Female Date:11/19/2023 Address:[address] [place] [address], [address], [id number] Pcp:Kirby Rodarte Subjective: * Chief Complaints: * 1 . [facility] [place] Conversion Encounter. * Medical History: * Medications: [...] * Procedure Codes: * Electronic signature of Prov susan SHAHID-Migration on 07/13/2024 at 12:40 PM CARDIAC TECH Sign off status: Pending * Provider: David coyne Migration Date: 0 11/19/2023 Generated for Giovanni corbin/Latricia/Mckenzieitting on: 0 07/13/2024 12:40 PM CARDIAC TECH
--- OUTSIDE RECORDS SUMMARY | 2024-07-13 12:40 | XMS_ITS ---
Author Organization [facility] Address [address] [place] [address] Care Team Providers Care Pocket And Pulley Machine Operator Name Role Phone Kirby Rodarte Primary Care Provider UnavailSophie Cool Unavailable [phone] Mackenzie Obando Unavailable [phone] Allergies Allergen (clinical drug ingredient) Drug/Non Drug Allergy documented on EMR Reaction Allergy Type Onset Date Status contrast dye (uncoded) other reaction Allergy Active codeine codeine stomach upset Drug Allergy Act francesca REASON FOR VISIT Chronic upper airway symptoms concerning for uncontrolled atopic disease Medications Medication SIG (Take, Route, Frequency, Duration) Notes Start Date End Date Status LEVOCETIRIZINE 5 mg 1 tab(s) orally once a day (in the evening) for 30 day(s) 07/13/2023 Active URSODIOL 500 mg 1 tab(s) orally twic e a day for 30 days 07/13/2023 Active NASAL WASHES N/A as directed intranas ally as needed for 30 07/13/2023 Active KLOR-CON 20 mEq 1 ea orally 2 times a day for 30 day(s) 07/13/2023 Active TRAZODONE HYDROCHLORIDE 100 mg as directed orally 07/13/2023 Active VILAZODONE HYDROCHLORIDE 20 mg 1 tab(s) orally once a day for 7 day(s) 07/13/2023 Active METOPROLOL 50 mg 1 tab(s) orally once [...] Problem Status W/U Status Risk Notes Problem 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 Samples given 07/13/2023 Allergic rhinitis due to animal (cat) [...] as an adjunctive measure Plan Of Treatment Medication Medication Name Sig Start Date Stop Date Notes LEVOCETIRIZINE 5 mg 1 tab(s) orally once a day (in the evening) for 30 day(s) 07/13/2023 NASAL WASHES N/A as directed intranas ally as needed for 30 07/13/2023 Treatment Notes Assessment Notes Allergic rhinitis due to pollen Given th e history and symptoms, skin testing was performed [...] 1 month for interval evaluation and management Congenital perforated nasal septum hold on nasal sprays at this time due to septal perforation. We discussed saline rinses and saline gel spray. Samples given Allergic rhinitis due to ani mal (cat) (dog) hair and dander Follow allergen avoidance, meds and consider SCIT as an adjunctive treatment to current regimen Other allergic rhinitis Follow allergen avoidance, meds and consider SCIT as an adjunctive treatment to current regimen Other chronic allergic conjunctivitis Gi inés ocular signs and symptoms I encouraged allergy avoidance measures and meds as above. If symptoms persist, consider adding additional medications including intraocular antihistamine/mast cell stabilizer, PRN and consider SCIT as an adjunctive measure Next Appt Details Follow Up: 4 Weeks, Reason: Evaluation and Management Procedure Notes * Category Sub-Category Detail Notes Skin Testing Epicutaneous skin testing was performed to common aeroallergens,revealing positive reactions to, karla, cocklebur, pigweed, plantain, cat hair, dust mite (p), Alternaria alternata, Aspergillus fumigates, Aspergillus niger, Aureobasidium (Pullularia), Bipolaris (Helmintho.), Botrytis cinera, Mercedes albicans, Cladosporium, Epidermophyton, Mucor plumbeus, Rhizopus nigricans, Rhodotorula mucil, Sarocladium strictum, Stemphylium botryosum, smut (corn), positive and negative controls responded appropriately Number of Skin Tests Performed (including contro ls): Aeroallergen: Yes Epicutaneous: 72 Progress Notes * Bart ACKERMANOB:1940 (83 yo F)Acc No.[id number]:07/13/2023 Progress Notes Patient: Jenniffer WARD Provider: Robin Obando MD :1940 A ge:83 Y S ex:Female Date:07/13/2023 Address:[address] [place] [address], [address], [facility] Pcp:Kirby Rodarte Subjective: * Chief Complaints: * C hronic upper airway symptoms concerning for uncontrolled atopic disease * HPI: * Introduction: I had the pleasure of seeing Robin Ackerman, an 83 year old with Sjogren's and recent congestion and rhinorrhea presenting for evaluation of allergic rhinitis.? She is alone for today's visit. S he reports frequest headaches, sinusitis, congestion and rhinorrhea. Decrease in sense of smell. Nasal symptoms are occurring throughout the year without regard to season. She is taking Neisha. and has not tried nasal sprays. Cut grass increases above symptoms. Strong scents are also problematic. S he has a history of Sjogren's and hole in septum which she says is from picking scabs. She was treated with antibiotics 2-3 times for sinusitis in the last year. N o dogs or cats in home. She is currently living in Assisted Living and apartment was built less than 10 years ago. She is controlling Sjogren's with CBD. S he has never undergone allergy skin testing or received allergy immunotherapy, She denies a history of physician-diagnosed allergic rhinitis, recurrent sinusitis or otitis media, recurrent pneumonia, asthma/RAD, eczema, food allergies, urticaria/angioedema, medication allergies, contact dermatitis, latex allergy, eosinophilic esophagitis or stinging insect hypersensitivity, . * ROS: A LLERGY: Positive p er the HPI and history, otherwise unremarkable.? S PECIAL SENSES: Positve for n one. C ONSTITUTIONAL: Positive for n one. E NT: Positive p er the HPI and history, otherwise unremarkable.? R ESPIRATORY: Positive p er the HPI and history, otherwise unremakable.? O PHTHALMOLOGY: Positive for p er the HPI and history, otherwise unremarkable. E NDOCRINOLOGY: Positive for n one. C ARDIOLOGY: Positive for n one. G ASTROENTEROLOGY: Positive for n one. U ROLOGY: Positive for n one. D ERMATOLOGY: Positive for p er the HPI and history, otherwise unremakable. N EUROLOGY: Positive for n one. H EMATOLOGY/LYMPH: Positive for n one. M USCULOSKELETAL: Positive for n one. P SYCHOLOGY: Positive for n one. A ll other review of systems per the HPI and history, otherwise unremarkable. * Medical History: * Surgical History: t ubal ligation 1972hysterectomy 1974cholecystectomy 1986knee replacements [id number] * Hospitalization/Major Diagno stic Procedure: c hildbirth 1962childbirth 1964childbirth 1968childbirth 1973pneumonia 07/2022 * Family History: F ather: . M other: . 2 brother(s) , 5 sister(s) . 1 son(s) , 2 daughter(s) - healthy. . dad- stroke, asthma, mom- abdominal anerusym, 2 siblings left 1 brother- diabetes,. * Social History: M arital Status What is your marital status? m arried S moking Smart Form Are you a: n ever smoker E nvironmental History Living environment: a partment Where is the home located? s uburb H ome description Do you own any pets? N o * Medications: T akingmetoprolol 50 mg tablet, extended release 1 tab(s) orally once a day furosemide 40 mg tablet 1 tab(s) orally once a day Levothyroxine Sodium 200 mcg (0.2 mg) tablet 1 tab(s) orally once a day Vilazodone Hydrochloride 20 mg tablet 1 tab(s) orally once a day ursodiol 500 mg tablet 1 tab(s) orally twice a day TraZODone Hydrochloride 100 mg tablet as directed orally Klor-Con 20 mEq powder for reconstitution 1 ea orally 2 times a day Medication List reviewed and reconciled with the patientTaking metoprolol 50 mg tablet, extended release 1 tab(s) orally once a day Taking furosemide 40 mg tablet 1 tab(s) orally once a day Taking Levothyroxine Sodium 200 mcg (0.2 mg) tablet 1 tab(s) orally once a day Taking Vilazodone Hydrochloride 20 mg tablet 1 tab(s) orally once a day Taking ursodiol 500 mg tablet 1 tab(s) orally twice a day Taking TraZODone Hydrochloride 100 mg tablet as directed orally Taking Klor-Con 20 mEq powder for reconstitution 1 ea orally 2 times a day Medication List reviewed and reconciled with the patient * Allergies: c odeine: stomach upsetcontrast dye: other reactionno[Allergies Verified] Objective: * Vitals: B P:143/80mm Hg, HR:61/min, Pulse Oximetry:97%, Ht: 65 in, Wt: 191.8 lbs, BMI:31.91Index. * Examination: G eneral examination: General appearance: p leasant, well-developed, well-nourished. HEENT: c onjunctiva are clear bilaterally, no tenderness to palpation of the sinuses, TM's without evidence of acute infection, turbinates with pink mucosa, clear rhinorrhea is present, no polyps noted, septal perforation present, posterior oropharynx is clear, no exudates, no tongue swelling, and uvula is midline. Oral cavity: n ormal, no lesions. Neck, thyroid : s upple, non-tender, no anterior cervical lymphadenopathy. Breasts : n ot performed. Heart: R RR, S1-S2, no murmurs, no rubs, no gallops. Lungs: c lear to auscultation and percussion in all lung zhou, no wheezes or crackles. Neurologic exam: u nremarkable. Skin: n ormal, no rash, dermatographism, urticaria, angioedema. Peripheral pulses: n ormal (2+) bilaterally. Back: n ormal. Extremities: n ormal ROM, no clubbing, no cyanosis, no edema. Genitalia: n ot performed. Influenza Vaccine not administered Assessment: * Assessment: 1. A llergic rhinitis due to pollen - J30.1 (Primary) 2 . 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 A llergic rhinitis due to animal (cat) (dog) hair and dander - J30.81 4. O ther allergic rhinitis - J30.89 5 . O ther chronic allergic conjunctivitis - H10.45 Plan: * Treatment: 2. C ongenital perforated nasal septum Notes: hold on nasal sprays at this time due to septal perforation. We discussed saline rinses and saline gel spray. Samples given 3. A llergic rhinitis due to animal (cat) (dog) hair and dander Notes: Follow allergen avoidance, meds and consider SCIT as an adjunctive treatment to current regimen 4. O ther allergic rhinitis Notes: Follow allergen avoidance, meds and consider SCIT as an adjunctive treatment to current regimen 5. O ther chronic allergic conjunctivitis Notes: Given ocular signs and symptoms I encouraged allergy avoidance measures and meds as above. If symptoms persist, consider adding additional medications including intraocular antihistamine/mast cell stabilizer, PRN and consider SCIT as an adjunctive measure * Procedures: S kin Testing: Epicutaneous s kin testing was performed to common aeroallergens,revealing positive reactions to, karla, cocklebur, pigweed, plantain, cat hair, dust mite (p), Alternaria alternata, Aspergillus fumigates, Aspergillus niger, Aureobasidium (Pullularia), Bipolaris (Helmintho.), Botrytis cinera, Mercedes albicans, Cladosporium, Epidermophyton, Mucor plumbeus, Rhizopus nigricans, Rhodotorula mucil, Sarocladium strictum, Stemphylium botryosum, smut (corn), positive and negative controls responded appropriately. Number of Skin Tests Performed (including controls): A eroallergen Y es E picutaneous 7 2 * Procedure Codes: 9 5004 PRICK TESTS, Units: 72.00 91137 PT-FOCUSED HLTH RISK [id number] DOC MEDS VERIFIED W/PT OR SDT8807 FLU IMM NO ORD/ADMIN DOC LIZY * Preventive Medicine: Counseling: M edication instruction: W atch for side effects of prescribed medications, Nasal steroid/antihistamine instruction: avoid septum. E ducation: G ENERAL EDUCATION: Our staff spent an additional 30 minutes in direct contact with the patient educating them on their current diagnoses and proper treatment and prevention of symptoms and the proper use of medications. E ducation 2: A RC EDUCATION: Our staff discussed the appropriate allergen avoidance measures and medication utilization including upper airway hygiene with daily nasal washes given the patient's clinical status and diagnoses. SCIT EDUCATION: Discussed allergy immunotherapy including the relative risks, benefits and alternatives to this treatment as an adjunctive measure to current therapy, Allergy Immunotherapy: Risks: bleeding, infection, allergic reaction, anaphylaxis = severe allergic reaction that can cause ; Benefits: reduced need for medications, improved symptoms, disease modification. Alternatives: watch/wait, change medication regimen, improve allergy avoidance measures, Our staff discussed the warning signs of anaphylaxis and the indications to use self-injectable epinephrine and seek urgent or emergent care. P atient education material sent to portal? Y es * Follow Up: 4 Weeks (Reason: Evaluation and Management) * Billing Information: * Visit Code: 46262 Office Visit, New Pt., Level 3. Modifiers: 25 * Procedure Codes: 94757 PRICK TESTS. Units: 72.00. 19448 PT-FOCUSED HLTH RISK ASSMT. G8427 DOC MEDS VERIFIED W/PT OR RE. G8483 FLU IMM NO ORD/ADMIN DOC LIZY. Images * 07/13/2023 skin prick testin g * HER OF THE EMOTIONALLY DISTURBED Sign off status: Completed true * Provider: Robin Obando MD Date: 0 07/13/2023 Generated for Giovanni corbin/Latricia/Mckenzieitting on: 07/13/2024 12:39 PM TEACHER OF THE EMOTIONALLY DISTURBED History and Physical Notes * HPI (History of Present Illness) Category Sub-Category Detail Notes Category Not es *Introduction I had the pleasure o f seeing Jenniffer Ackerman, an 83 year old with Sjogren's and recent congestion and rhinorrhea presenting for evaluation of allergic rhinitis. She is alone for today's visit. She reports frequest headaches, sinusitis, congestion and rhinorrhea. Decrease in sense of smell. Nasal symptoms are occurring throughout the year without regard to season. She is taking Neisha. and has not tried nasal sprays. Cut grass increases above symptoms. Strong scents are also problematic. She has a history of Sjogren's and hole in septum which she says is from picking scabs. She was treated with antibiotics 2-3 times for sinusitis in the last year. No dogs or cats in home. She is currently living in Assisted Living and apartment was built less than 10 years ago. She is controlling Sjogren's with CBD. She has never undergone allergy skin testing or received allergy immunotherapy, She denies a history of physician-diagnosed allergic rhinitis, recurrent sinusitis or otitis media, recurrent pneumonia, asthma/RAD, eczema, food allergies, urticaria/angioedema, medication allergies, contact dermatitis, latex allergy, eosinophilic esophagitis or stinging insect hypersensitivity, Examination Category Sub-Category Detail Notes Category Not es General examination HEENT: conjunctiva are clear bilaterally, no tenderness to palpation of the sinuses, TM's without evidence of acute infection, turbinates with pink mucosa, clear rhinorrhea is present, no polyps noted, septal perforation present, posterior oropharynx is clear, no exudates, no tongue swelling, and uvula is midline Neck, thyroid : supple, non-tender, no anterior cervical lymphadenopathy Heart: RRR, S1-S2, no murmu rs, no rubs, no gallops Lungs: clear to auscultatio n and percussion in all lung zhou, no wheezes or crackles Extremities: normal ROM, no clubb ing, no cyanosis, no edema General appearance: pleasant, well-devel oped, well-nourished Skin: normal, no rash, jamie matographism, urticaria, angioedema Neurologic exam: unremarkable Oral cavity: normal, no lesions Breasts : not performed Peripheral pulses: normal (2+) bilatera lly Back: normal Genitalia: not performed Influenza Vaccine not administered Reason:: Mamta ent Reason Type of Patient Reason:: Refused
--- OUTSIDE RECORDS SUMMARY | 2024-07-13 12:40 | XMS_ITS | Clinical Summary ---
Author Organization [facility] Address [facility] [place] [address] Care Team Providers Care Risk Reduction Counselor Name Role Phone Hasmukh Gonzalez MD Primary Care Provider Unavail able Source Comments [facility],non-owned Affiliates and Associated Physician Practices is amultiple site organization consisting of ambulatory clinics and hospital sitesin [place], [place], [place] and [place]. This disclosure is being madepursuant to the Care Everywhere program and may not contain all information available regarding this patient. Last updated 18.[facility] Allergies Active Allergy Reactions Criticality Noted Date [...] Comments BONE DENSITY TESTING 1940 MEDICARE AWV 12 MONTHS 1940 DTAP/TDAP/TD VACCINES (1 - [...] this topic Medical Devices Implanted Type Area Cryptoanalysis Teacher Device Identifier Shelf Expiration Date Model / Serial / Lot Wire K .035 X 5.5in Implanted:Qty: 2 on 09/06/2017 by Venice Dueñas MD at [facility] Left: Finger [employer] 1346-002-0 00 / / Description:left index finge r Care Teams Risk Reduction Counselor Relationship Specialty Start Date End Date Hasmukh Gonzalez MD PCP - General Internal Medicine 08/18/17
--- OUTSIDE RECORDS SUMMARY | 2024-07-13 12:40 | XMS_ITS | Continuity of Care Document ---
Author Organization [facility] Address [address] [place] [address] Phone Care Team Providers Care Tailer Off Name Role Phone [facility] Unavailable [...] Diagnoses Date Provider Providers Copied on Encounter [facility], [address], [place], [place], [id number], [place] tel:[phone] [facility] No Information Feb-201 0 [facility] . [address] [facility], [address], [place], [place], [address], [place]. tel:[phone] Referring Provider: Pamela Valle, [address], [place], [address]. tel:[phone] wadsworth Provider: Lucita Laura, [address] [place] [address], [address]. tel:[phone] Office/outpat ient Visit, Est [facility], [address], [place], [place], [address], [place] tel:[phone] [facility] No Information Sep- 4-201 0 Odilia Santiago. [address], [address], [place], [address], [place]. tel:[phone] [facility], [address], [place], [place], [address], [place] tel:[phone] [facility] No Information Apr-2 4-200 9 Odilia Santiago. [address], [address], [place], [place], [facility], [place]. tel:[phone] [facility], [address], [place], [place], [address], [place] tel:[phone] [facility] No Information Dec-2 9-200 8 [facility] . [address] [facility], [address], [id number], [place]. tel:[phone] Consulting Provider: Mariah Bolden, [address] [place] [address], [address]. tel:[phone] [facility], [address], [place], [place], [address], [place] tel:[phone] [facility] No Information Aug-0 8-200 8 [facility] . [address] [facility], [address], [place], [place], [address], [place]. tel:[phone] Consulting Provider: Mariah Bolden, [address] [place] [address], [facility]. tel:[phone] [facility], [address], [place], [place], [address], tel:[phone] [facility] No Information Jan-0 8-200 8 Odilia Evans [address], [place], [place], [facility], . tel:[phone] [facility], [address], [place], [place], [address], tel:[phone] [facility] No Information 0 2200 8 [facility] . [address] [facility], [address], [place], [place], [address], . tel:[phone] Referring Provider: Pamela Valle, [address], [place], [facility]. tel:[phone] g Provider: Mariah Bolden, [address] [place], [place], [facility]. tel:[phone] [facility], [address] [place] [address] [address], [place], [place], [address], tel:[phone] [facility] No Information 0 1200 8 Odilia Evans [address] , [address], [place], [facility], . tel:[phone] [facility], [address] [place] [address] [address], [place], [place], [address], tel:[phone] [facility] No Information 200 7 Odilia Evans [address] , [address], [place], [place], [facility], . tel:[phone] Family History Family Member Type Diagnosis Age At Onset No Information Payers Payer name Insurance type Covered constitution party ID Authoriza tion(s) No Information Social History [...]
--- OUTSIDE RECORDS SUMMARY | 2024-07-13 12:41 | XMS_ITS ---
Author Organization [facility] Address [facility] [facility] [address] [place] [address] Care Team Providers Care Dog License Officer Supervisor Name Role Phone Anoop Robles Unavailable [phone] Social History Sex Assigned At : Social History Observation Description Sex Assigned At Female Encounters Encounter Location Date Provider Diagnosis [facility] [employer] 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
--- NOTE | 2024-07-13 12:51 | ECG_ITS ---
Test Date: 2024-07-13 13:01:00 Measurements Intervals [place] Rate: 59 P: 0 MD: 0 QRS: -39 QRSD: 114 T: 71 QT: 426 QTc: 422 Interpretive Statements ATRIAL FIBRILLATION WITH SLOW VENTRICULAR RESPONSE LEFT AXIS DEVIATION INTRAVENTRICULAR CONDUCTION DELAY PATTERN CONSISTENT WITH PULMONARY DISEASE LEFT VENTRICULAR HYPERTROPHY WITH ST-T CHANGE CONSIDER INFERIOR INFARCT, AGE INDETERMINATE BASELINE ARTIFACT- I, III, AVR, AVL ABNORMAL ECG Compared to ECG 04/18/2024 14:25:12 NO SIGNIFICANT CHANGE Electronically Signed On 07-13-2024 15:46:01 CARE REP by Donte Esqueda D.O.
[2024-07-13 13:11] LABS: Basophils Percent Auto 0.5 % (0.2-1.2); Eosinophils Absolute Auto 0.2 K/mm3 (0-0.3); Eosinophils Percent Auto 2.4 % (0-4.4); Hematocrit 38.4 % (37.0-47.0); Hemoglobin 12.3 g/dL (12.0-15.0); Immature Granulocyte Absolute 0.04 K/mm3 (0.00-0.031); Immature Granulocyte Percent A 0.5 % (0-0.5); Lymphocytes Absolute Auto 0.43 K/mm3 (0.9-3.2); Lymphocytes Percent Auto 5.4 % (18.3-44.2); Mean Corpuscular Hemoglobin 30.6 pg (26-34); Mean Corpuscular Volume 95.5 fl (80-100); Mean Platelet Volume 9.4 fl (7.4-10.4); Monocytes Absolute Auto 0.7 K/mm3 (0.1-0.6); Monocytes Percent Auto 9.3 % (2.6-8.5); Neutrophils Absolute Auto 6.5 K/mm3 (1.3-6.7); Neutrophils Percent Auto 81.9 % (45.5-73.1); Platelet Count Result 237 k/mm3 (150-375); Red Blood Count 4.02 M/mm3 (4.2-5.4); Red Cell Distribution Width 15.2 % (11.5-14.5); White Blood Count 7.9 K/mm3 (4.5-10.0)
[2024-07-13 13:24] LABS: Alanine Aminotransferase 22 U/L (6-35); Albumin Level 3.2 g/dL (3.5-5.1); Alkaline Phosphatase 207 U/L (38-126); Anion Gap 15 mmol/L (4-12); Aspartate Amino Transferase 31 U/L (14-36); Bilirubin,Total 0.8 mg/dL (0.2-1.3); Blood Urea Nitrogen 17 mg/dL (7-17); Calcium 8.7 mg/dL (8.4-10.2); Carbon Dioxide 25 mmol/L (22-30); Chloride 98 mmol/L (98-107); Estimated CRCL calculation 42 ml/min; Estimated Glomerular Filt Rate 55; Glucose 118 mg/dL (65-110); Sodium 138 mmol/L (137-145)
[2024-07-13 13:27] LABS: Prothrombin Time 13.6 Seconds (11.1-14.7)
[2024-07-13 13:28] LABS: Partial Thromboplastin Time 27.1 Seconds (22.3-36.8)
[2024-07-13 13:36] LABS: NT Pro B Type Natriuretic Pept 4660 pg/mL (19.9-100); Troponin I 0.014 ng/mL (0.000-0.034)
--- NOTE | 2024-07-13 14:51 | ED_ITS ---
HPI - SOB/Dyspnea General Chief Complaint: Shortness of Breath/Dyspnea <Elke Burrell PA-C - Last Filed: 07/13/24 14:51> Stated Complaint: sob, chf exacerbation, weak <Elke Burrell PA-C - Last Filed: 07/13/24 14:51> Time Seen by Provider: 07/13/24 15:46 <Elke Burrell PA-C - Last Filed: 07/13/24 14:51> Focused HPI: 84-year-old female with history of CHF presents to the ED with concerns for CHF exacerbation. Patient states over the past 3 days she has felt increasingly more swollen with lower extremity edema, abdominal distension and tightness, states it feels like her clothes are fitting tightly, subjectively reports she has gained weight but has not checked her weight. She reports associated shortness of breath orthopnea. States in the past when she has presented this way it has been due to CHF. She has been taking 40 mg of Lasix daily without improvement. She has not increased her Lasix dose. Denies cough or congestion, fever. GENERAL: Well-appearing, well-nourished, and in no acute distress. HEAD: Normocephalic, atraumatic. CHEST: Clear to auscultation. ?No respiratory distress. HEART: Regular rate and rhythm.? NEURO: ?Alert and oriented x3. Patient screened in triage and initial orders placed.? ?Additional care and disposition to be based upon?diagnostic testing and treatment. <Elke Burrell PA-C - Last Filed: 07/13/24 14:51> Focused HPI: 84-year-old female with history of CHF presents to the ED with concerns for CHF exacerbation. Patient states over the past 3 days she has felt increasingly more swollen with lower extremity edema, abdominal distension and tightness, states it feels like her clothes are fitting tightly, subjectively reports she has gained weight but has not checked her weight. She reports associated shortness of breath orthopnea. States in the past when she has presented this way it has been due to CHF. She has been taking I half dose of her normal Lasix as she has been peeing too frequently. She has not increased her Lasix dose. Denies cough or congestion, fever. GENERAL: Well-appearing, well-nourished, and in no acute distress. HEAD: Normocephalic, atraumatic. CHEST: Clear to auscultation. ?No respiratory distress. HEART: Regular rate and rhythm.? NEURO: ?Alert and oriented x3. Patient screened in triage and initial orders placed.? ?Additional care and disposition to be based upon?diagnostic testing and treatment. <Galo Mccauley MD - Last Filed: 07/13/24 19:44> History of Present Illness HPI Narrative: Agree with the HPI above. <Galo Mccauley MD - Last Filed: 07/13/24 19:44> Related Data Home Medications: Home Medications ?Medication ?Instructions ?Recorded ?Confirmed ?Last Taken ?Type vilazodone 20 mg tablet 20 mg PO DAILY 02/20/23 04/18/24 Unknown History <Elke Burrell PA-C - Last Filed: 07/13/24 14:51> Allergies/Adverse Reactions: Allergies Allergy/AdvReac Type Severity Reaction Status Date / Time Gadolinium-Containing Allergy Severe Chest Pain Verified 04/27/24 12:47 Contrast Medi adhesive tape Allergy Mild Rash Verified 04/27/24 12:47 ioversol Allergy Unknown Other Verified 04/27/24 12:47 morphine Allergy Unknown Liver Verified 04/27/24 12:47 function tests abnormal acetaminophen AdvReac Severe kidney Verified 04/27/24 12:47 stop working tramadol AdvReac Severe Other Verified 04/27/24 12:47 benzonatate AdvReac Unknown Headache Verified 04/27/24 12:47 codeine AdvReac Unknown Headache Verified 04/27/24 12:47 <Elke Burrell PA-C - Last Filed: 07/13/24 14:51> Review of Systems 2 Review of Systems: As reviewed above in HPI <Galo Mccauley MD - Last Filed: 07/13/24 19:44> PMFSH Past Medical History Medical History: Medical History Urinary catheter insertion/adjustment/removal Anxiety and depression Shingles Meniere disease Sjogren syndrome Rectocele Interstitial pulmonary fibrosis Vitamin D deficiency PAF (paroxysmal atrial fibrillation) CKD (chronic kidney disease) Hyperlipidemia Hypothyroidism Hypertension HOCM (hypertrophic obstructive cardiomyopathy) Primary biliary cirrhosis Vertigo Actinic keratosis History of basal cell carcinoma (BCC) Chin <Elke Burrell PA-C - Last Filed: 07/13/24 14:51> Surgical History Surgical History: Surgical History History of bladder surgery bladder suspension History of knee replacement - 1997, 1998, 1999, 2001 History of cholecystectomy 1996 H/O: hysterectomy 1974 History of tubal ligation 1972 <Elke Burrell PA-C - Last Filed: 07/13/24 14:51> Family History Family History: Family History Father Hypertension Cerebrovascular accident, Onset Age: 70 Patient's father is Mother Hypertension Family history of aortic aneurysm, Onset Age: 81 Sibling Hypertension Family history of diabetes mellitus in first degree relative Family history of coronary artery disease Family history of premature coronary heart disease Patient's brother is Family history of malignant neoplasm of brain Family history of type 2 diabetes mellitus Sibling Diabetes mellitus Heart disease Advanced hepatic cirrhosis <Elke Burrell PA-C - Last Filed: 07/13/24 14:51> Social History Social History: Social History Social History: Caffeine-daily Smoking status: Former smoker Second hand tobacco smoke exposure: Yes Alcohol intake: never Substance use: current Other substance usage details: CBD gummies Do You Feel Safe in your Home?: Yes Lack of Transportation: No Lack of Food: Never True Current Housing: I Have Housing Concerned About Future Housing: No Difficulty Paying Gas/Electric Bills: No Difficulty Paying for Meds: No Currently Unemployed: No Education: High School Diploma/GED Difficulty w/ Childcare or Family Care: No Living arrangements: with family Occupation/Education: retired Additional occupation/education comments: [employer]. Gender identity (if verbalized by the patient): Female Spiritual care concerns: No <JAYLA Faulkner Last Filed: 07/13/24 14:51> Exam 2 Narrative: GENERAL: [Well-appearing, well-nourished, and in no acute distress.] HEAD: [Normocephalic, atraumatic.] EYES: [PERRLA and EOMI.] ENT: Nares clear, no rhinorrhea or epistaxis. Mucous membranes moist. NECK: Supple. CHEST: [Clear to auscultation. No respiratory distress.] HEART: [Regular rate and rhythm]. No murmur heard. [Normal peripheral pulses.] ABDOMEN: [Soft, nondistended], [nontender], [No rigidity or guarding] EXTREMITIES: Normal range of motion. [ 1+ pitting edema] SKIN: Warm, dry, no rash. NEURO: [No focal deficits]. Alert and oriented [x3.] PSYCH: [Normal mood and affect.] <Galo Mccauley MD - Last Filed: 07/13/24 19:44> Course Vital Signs Vital signs: Vital Signs Temperature 36.5 C 07/13/24 12:40 Pulse Rate 59 L 07/13/24 12:40 Respiratory Rate 20 07/13/24 12:40 Blood Pressure 185/83 H 07/13/24 12:40 Pulse Oximetry 96 07/13/24 12:40 Oxygen Delivery Room Air 07/13/24 12:40 Temperature 36.5 C 07/13/24 12:40 Pulse Rate 59 L 07/13/24 18:15 Respiratory Rate 18 07/13/24 18:15 Blood Pressure 157/73 H 07/13/24 18:15 Pulse Oximetry 95 07/13/24 18:15 Oxygen Delivery Room Air 07/13/24 15:58 <Elke Burrell PA-C - Last Filed: 07/13/24 14:51> Vital Signs Temperature 36.5 C 07/13/24 12:40 Pulse Rate 59 L 07/13/24 12:40 Respiratory Rate 20 07/13/24 12:40 Blood Pressure 185/83 H 07/13/24 12:40 Pulse Oximetry 96 07/13/24 12:40 Oxygen Delivery Room Air 07/13/24 12:40 Temperature 36.5 C 07/13/24 12:40 Pulse Rate 59 L 07/13/24 18:15 Respiratory Rate 18 07/13/24 18:15 Blood Pressure 157/73 H 07/13/24 18:15 Pulse Oximetry 95 07/13/24 18:15 Oxygen Delivery Room Air 07/13/24 15:58 <Galo Mccauley MD - Last Filed: 07/13/24 19:44> MDM - SOB/Dyspnea MDM Narrative Medical decision making narrative: 84-year-old female with a past medical history including congestive heart failure with previous heart failure exacerbations presenting to the emergency room with chief complaint of lower extremity swelling, weight gain, subjective dyspnea. She is otherwise comfortable appearing, not any acute distress, aside from some stable hypertension has no other vital concerns such as tachycardia, fever or hypoxia. Saturating well on room air with clear breath sounds throughout. She does have 1+ pitting edema to bilateral extremities. When questioned further she states that she has not been taking her full Lasix dose these past few weeks that she has cut down to 20 mg daily instead of her 40 mg daily as she was peeing too frequently. patient has any pain, nausea, vomiting, abdominal pain, back pain. She is not particular. Emesis but could be slightly hypervolemic given her presentation and concerns. Cardiac workup was ordered including CBC, CMP, troponin, chest x-ray, BNP. She was given 80 mg of IV Lasix and an external female catheter was ordered. Workup shows no leukocytosis or anemia. Negative troponin. Coag studies within normal limits. Negative troponin. BNP was mildly elevated but in line within normal previous elevations. She has some mild alk-phos elevations which are chronic as well. Normal electrolytes, normal glucose, normal renal function panel. Chest x-ray shows very mild edema but no pneumothorax or pneumonia. patient was re-evaluated after Lasix and felt significant improvement. At this time I believe she would benefit from going back to her normal dose of Lasix however if she is not able to handle 40 mg at 1 time she was encouraged to take 20 mg in the morning and 20 mg at night and follow-up with regular doctor. Patient felt comfortable and safe for discharge, will follow-up and return if she has any new or worsening concerns at any time. <Galo Mccauley MD - Last Filed: 07/13/24 19:44> Medical Records Attestation: I reviewed the patient's medical records. <Galo Mccauley MD - Last Filed: 07/13/24 19:44> Lab Data Attestation: I reviewed the patient's lab results. <Galo Mccauley MD - Last Filed: 07/13/24 19:44> Result diagrams: 07/13/24 13:06 07/13/24 13:06 <Elke Burrell PA-C - Last Filed: 07/13/24 14:51> Labs: Lab Results 07/13/24 Range/Units 13:06 WBC 7.9 (4.5-10.0) K/mm3 RBC 4.02 L (4.2-5.4) M/mm3 Hgb 12.3 (12.0-15.0) g/dL Hct 38.4 (37.0-47.0) % MCV 95.5 (80-100) fl MCH 30.6 (26-34) pg MCHC 32.0 (32-36) g/dl RDW 15.2 H (11.5-14.5) % Plt Count 237 (150-375) k/mm3 MPV 9.4 (7.4-10.4) fl Immature Gran % (Auto) 0.5 (0-0.5) % Neut % (Auto) 81.9 H (45.5-73.1) % Lymph % (Auto) 5.4 L (18.3-44.2) % Gibson % (Auto) 9.3 H (2.6-8.5) % Eos % (Auto) 2.4 (0-4.4) % Baso % (Auto) 0.5 (0.2-1.2) % Lymph # (Auto) 0.43 L (0.9-3.2) K/mm3 Gibson # (Auto) 0.7 H (0.1-0.6) K/mm3 Eos # (Auto) 0.2 (0-0.3) K/mm3 Baso # (Auto) 0.0 (0.0-0.1) K/mm3 Abs Immat Gran (auto) 0.04 H (0.00-0.031) K/mm3 Absolute Neuts (auto) 6.5 (1.3-6.7) K/mm3 Absolute Nucleated RBC 0.000 (0.0-0.012) K/mm3 Nucleated RBC % 0.0 (0.0-0.2) % PT 13.6 (11.1-14.7) Seconds INR 1.0 APTT 27.1 (22.3-36.8) Seconds Sodium 138 (137-145) mmol/L Potassium 4.0 (3.4-5.0) mmol/L Chloride 98 (98-107) mmol/L Carbon Dioxide 25 (22-30) mmol/L Anion Gap 15 H (4-12) mmol/L BUN 17 (7-17) mg/dL Creatinine 0.97 (0.7-1.0) mg/dL Estim Creat Clear Calc 42 ml/min Estimated GFR 55 L (59 - ) Glucose 118 H (65-110) mg/dL Calcium 8.7 (8.4-10.2) mg/dL Total Bilirubin 0.8 (0.2-1.3) mg/dL AST 31 (14-36) U/L ALT 22 (6-35) U/L Alkaline Phosphatase 207 H (38-126) U/L Troponin I 0.014 (0.000-0.034) ng/mL NT-Pro-B Natriuret Pep 4660 H (19.9-100) pg/mL Total Protein 6.0 L (6.3-8.2) g/dL Albumin 3.2 L (3.5-5.1) g/dL <Elke Burrell PA-C - Last Filed: 07/13/24 14:51> Lab Results 07/13/24 Range/Units 13:06 WBC 7.9 (4.5-10.0) K/mm3 RBC 4.02 L (4.2-5.4) M/mm3 Hgb 12.3 (12.0-15.0) g/dL Hct 38.4 (37.0-47.0) % MCV 95.5 (80-100) fl MCH 30.6 (26-34) pg MCHC 32.0 (32-36) g/dl RDW 15.2 H (11.5-14.5) % Plt Count 237 (150-375) k/mm3 MPV 9.4 (7.4-10.4) fl Immature Gran % (Auto) 0.5 (0-0.5) % Neut % (Auto) 81.9 H (45.5-73.1) % Lymph % (Auto) 5.4 L (18.3-44.2) % Gibson % (Auto) 9.3 H (2.6-8.5) % Eos % (Auto) 2.4 (0-4.4) % Baso % (Auto) 0.5 (0.2-1.2) % Lymph # (Auto) 0.43 L (0.9-3.2) K/mm3 Gibson # (Auto) 0.7 H (0.1-0.6) K/mm3 Eos # (Auto) 0.2 (0-0.3) K/mm3 Baso # (Auto) 0.0 (0.0-0.1) K/mm3 Abs Immat Gran (auto) 0.04 H (0.00-0.031) K/mm3 Absolute Neuts (auto) 6.5 (1.3-6.7) K/mm3 Absolute Nucleated RBC 0.000 (0.0-0.012) K/mm3 Nucleated RBC % 0.0 (0.0-0.2) % PT 13.6 (11.1-14.7) Seconds INR 1.0 APTT 27.1 (22.3-36.8) Seconds Sodium 138 (137-145) mmol/L Potassium 4.0 (3.4-5.0) mmol/L Chloride 98 (98-107) mmol/L Carbon Dioxide 25 (22-30) mmol/L Anion Gap 15 H (4-12) mmol/L BUN 17 (7-17) mg/dL Creatinine 0.97 (0.7-1.0) mg/dL Estim Creat Clear Calc 42 ml/min Estimated GFR 55 L (59 - ) Glucose 118 H (65-110) mg/dL Calcium 8.7 (8.4-10.2) mg/dL Total Bilirubin 0.8 (0.2-1.3) mg/dL AST 31 (14-36) U/L ALT 22 (6-35) U/L Alkaline Phosphatase 207 H (38-126) U/L Troponin I 0.014 (0.000-0.034) ng/mL NT-Pro-B Natriuret Pep 4660 H (19.9-100) pg/mL Total Protein 6.0 L (6.3-8.2) g/dL Albumin 3.2 L (3.5-5.1) g/dL <Galo Mccauley MD - Last Filed: 07/13/24 19:44> Imaging Data Attestation: I personally reviewed and interpreted this imaging study as follows: < Galo Mccauley MD - Last Filed: 07/13/24 19:44> My impression: Impressions Chest X-Ray 07/13/24 14:43 IMPRESSION: 1. Mild pulmonary edema. 2. Cardiomegaly. <Galo Mccauley MD - Last Filed: 07/13/24 19:44> Discharge Plan Discharge Clinical Impression: Acute exacerbation of chronic heart failure, Mild shortness of breath <Elke Burrell PA-C - Last Filed: 07/13/24 14:51> Patient Disposition: Home, Self-Care <Elke Burrell PA-C - Last Filed: 07/13/24 14:51> Condition: Stable <Elke Burrell PA-C - Last Filed: 07/13/24 14:51> Instructions: Antibiotic Form, Furosemide (By mouth), Heart Failure (ED) <Elke Burrell PA-C - Last Filed: 07/13/24 14:51> Additional Instructions: you have a very minor exacerbation of heart failure likely secondary to taking only half of your Lasix medication. Your laboratory studies were otherwise very reassuring, please take your Lasix 20 mg in the morning and 20 mg at night, follow-up with regular doctor and conference assistant or return if you have any increasing difficulty in breathing, chest discomfort, inability to tolerate p.o. intake or any other concerns. <Elke Burrell PA-C - Last Filed: 07/13/24 14:51> Patient Language: Yoruba <JAYLA Faulkner Last Filed: 07/13/24 14:51> Prescriptions: No Action vilazodone 20 mg Tablet 20 mg PO DAILY Rx Instructions: must administer with a meal/food furosemide 40 mg Tablet 40 mg PO DAILY Qty: 90 0RF diphenoxylate-atropine [Lomotil] 2.5-0.025 mg tablet 1 tablet PO QID PRN (Reason: diarrhea) Qty: 20 1RF potassium chloride 20 mEq tablet extended release 40 meq PO DAILY Qty: 180 1RF ursodiol 500 mg tablet 500 mg PO BID Qty: 180 2RF levothyroxine 175 mcg tablet 175 mcg PO DAILY Qty: 90 2RF albuterol sulfate 90 mcg/actuation HFA aerosol inhaler 2 puff inhalation Q4-6H PRN (Reason: shortness of breath or wheezing) Qty: 8.5 3RF metoprolol succinate 50 mg tablet extended release 24 hr 50 mg PO BID Qty: 180 2RF trazodone 100 mg tablet 100 mg PO QHS Qty: 90 2RF amoxicillin-pot clavulanate 875-125 mg tablet 1 tablet PO BID 7 Days Qty: 14 0RF <Elke Burrell PA-C - Last Filed: 07/13/24 14:51> Follow-up/Referrals: Andrei Regan, SOFTWARE DEVELOPER INTERN [Primary Care Provider] - <Elke Burrell PA-C - Last Filed: 07/13/24 14:51> Time of Disposition: 19:43 <Elke Burrell PA-C - Last Filed: 07/13/24 14:51> 19:43 <Galo Mccauley MD - Last Filed: 07/13/24 19:44>
--- OUTSIDE RECORDS SUMMARY | 2024-07-13 15:52 | XMS_ITS | Clinical Summary ---
Author Organization [facility] Address [facility] [place] [address] Care Team Providers Care Environmental Emergencies Assistant Name Role Phone Hasmukh Gonzalez MD Primary Care Provider Unavail able Source Comments [facility],non-owned Affiliates and Associated Physician Practices is amultiple site organization consisting of ambulatory clinics and hospital sitesin [place], [place], [place] and [place]. This disclosure is being madepursuant to the Care Everywhere program and may not contain all information available regarding this patient. Last updated 18.[facility] Allergies Active Allergy Reactions Criticality Noted Date [...] this topic Medical Devices Implanted Type Area Chicken Vaccinator Device Identifier Shelf Expiration Date Model / Serial / Lot Wire K .035 X 5.5in Implanted:Qty: 2 on 09/06/2017 by Venice Dueñas MD at [facility] Left: Finger [employer] 1346-002-0 00 / / Description:left index finge r Care Teams Environmental Emergencies Assistant Relationship Specialty Start Date End Date Hasmukh Gonzalez MD PCP - General Internal Medicine 08/18/17
--- OUTSIDE RECORDS SUMMARY | 2024-07-13 15:52 | XMS_ITS | CONTINUITY OF CARE DOCUMENT ---
Author Name alicja jeremyyesika Address Unknown Organization [facility] Address [address] [place] [address] Phone [phone] Care Team Providers Care Fan Mail Editor Name Role Phone Jl Corey MD Unavailable [phone] MARIYA DO, PAYAL Unavailable [phone] MARIYA DO, PAYAL Unavailable [phone] PROBLEMS Condition Status Date Provider Notes Microalbuminuria [...] In-person encounter Office Visit Jl Corey MD [facility] Atrial fibrillation, chronic;tsh on rxDiastolic CHFOverweightPrimary biliary cirrhosisScreening - In-person encounter Office Visit Jl Corey MD [facility] Atrial fibrillation, chronic;tsh on rxHypertension;neg duplexElevated LFT'sHypoalbuminemiacovid and had vaccineFAMILY HISTORY OF HEART DISEASEHyperlipidemia;with high crp and lpa 117HypothyroidismScreening - In-person encounter Office Visit Jl Corey MD [facility] Primary biliary cirrhosis - In-person encounter Office Visit Jl Corey MD [facility] LBBBAtrial fibrillation, chronic;tsh on rxHypertension;neg duplexDiastolic [...] Charlette Sparrow height E&M 65 [in_i] [facility] Body Mass Index (Ratio) 31.45 kg/m2 Jacqui Corey MD blood pressure, diastolic 112 mm[Hg] Cari Gordillo blood pressure, systolic 187 mm[Hg] Sharla Gordillo oxygen saturation, oximetry 94 % Sara Golva respiratory rate E&M 94 /min Sara Golva pulse rate 72 /min Sara Golva weight E&M 189 [lb_av] Sara Golva height E&M 65 [in_i] Sara Golva blood pressure, cuff size regular Cari baca [...] iron binding capacity, unsaturated 250 ug/dL [employer] 298-201 4528/10/3 1 iron binding capacity, total 283 ug/dL [employer] [phone]/10/3 1 microalbumin/creatin ine ratio, urine 49 MG/G [...] 0-149 1 cholesterol, serum 175 mg/dL [employer] 305-373 7908/10/3 1 hemoglobin A1C, blood, as % of [...] Estab. 1 platelet count 332 X10E3/UL [employer] [phone]/10/3 1 red blood cell distribution width 13.4 [...] 3.5-5.2 2 sodium, serum 140 mmol/L [employer] 601-490 4498/10/2 2 urea nitrogen/creatinine ratio, serum 13 [employer] [...] levothyroxine 200 mcg tablet active Radha Owenmiglia NURSE OFFICE Klor-Con M20 20 mEq tablet,ER particles/twan ls completed - Radhabrittney Owenmiglgiovanni BURKSP furosemide 40 mg tablet completed - Radha Owenmiglia MELISSA albuterol sulfate 90 mcg/actuation HFA aerosol inhaler active Radha Owenmiglia NURSE OFFICE metoprolol succinate 50 mg tablet extended release [...] history of marijuana use no Radha Owenmiglia NURSE OFFICE drug use no Radha Ventimig geraldine NURSE OFFICE alcohol use no Radha Ventimig geraldine NURSE OFFICE smoking status Never smoker Radha Gutierrez iglgiovanni BURKSP FAMILY HISTORY Family Member Condition Full Brother CAD male <55 Father Stroke/CVA INSURANCE PROVIDERS Payer name Policy type / Coverage type [place] red democrat ID [employer] MEDICARE JUDIE PPO Medicare [id number] 500 ADVANCE DIRECTIVES Name Date DISCUSSED - NO DECISION MADE TREATMENT PLAN Date Name Performer Cardiology Jl Corey MD Cardiology Jl Corey MD Cardiology: M ILLD MS AND SEVERE TR ADN MILD AND MILD [...] 57 Jl Corey MD Cardiology: M ILLD MS AND SEVERE TR ADN MILD AND MILD [...] Corey MD Cardiology Jl Corey MD :MILLD MS AND SEVERE TR ADN MILD AND MILD MR Jl Corey MD :58 Jl Corey MD :[id number] EF 55 Jl Corey MD :57 Jl Corey MD Cardiology:with asso ciated SOB with minimal exertion. p lanned for stress test to r/o ischemia H er updated medication list for this problem includes: Metoprolol Succinate 50 Mg Tablet Extended Release 24 Hr (Metoprolol succinate) [facility] Cardiology:egfr of 5 3 on last labs W ill do renal duplex [facility] Cardiology:LFTs only mildly elevated on last labs [facility] Cardiology:BP above goal will add losartan H er updated medication list for this problem includes: Losartan 25 Mg Tablet (Losartan) ..... Take 1 tablet by mouth once daily Metoprolol Succinate 50 Mg Tablet Extended Release 24 Hr (Metoprolol succinate) [facility] Cardiology:chronic r ate controlled p atient had nosebleeds with xarelto s he refuses all AC W e did discuss risk of stoke and she verbalized understanding H er updated medication list for this problem includes: Metoprolol Succinate 50 Mg Tablet Extended Release 24 Hr (Metoprolol succinate) [facility] Cardiology: 3 040, ef 65 S he has continued SOB with minimal activity l ast echo 07/2022 at [facility] W ill upadat echo [facility] :41 Jl Corey MD :3040, ef 65 Jl Corey MD :53 Jl Corey MD Cardiology:weight loss encourage d [facility] Cardiology:controlle d T he following medications were removed from the medication list: Furosemide 40 Mg Tablet (Furosemide) Her updated medication list for this problem includes: Metoprolol Succinate 50 Mg Tablet Extended Release 24 Hr (Metoprolol succinate) [facility] Cardiology:patient h as SOB with minimal [...] Release 24 Hr (Metoprolol succinate) Radha Murillo NURSE OFFICE Cardiology:rate cont rolled on metoprolol c oncern contibuting to her SOB W ill add xarelto for AC p gwyn tele monitor g et recent labs and echo from [facility] eturn post testing H er updated medication list for this problem includes: Metoprolol Succinate 50 Mg Tablet Extended Release 24 Hr (Metoprolol succinate) Radha Murillo [facility] Date Name Complete Echo Stress [...]
--- OUTSIDE RECORDS SUMMARY | 2024-07-13 15:52 | XMS_ITS | Referral Summary ---
Author Organization [facility] Address [facility] [facility] [place] [facility] [place] [address] Care Team Providers Care Preparation Room Manager Name Role Phone Hasmukh Gonzalez MD Primary Care Provider Unavail able Source Comments [facility],non-owned Affiliates and Associated Physician Practices is amultiple site organization consisting of ambulatory clinics and hospital sitesin [place], [place], [place] and [place]. This disclosure is being madepursuant to the Care Everywhere program and may not contain all information available regarding this patient. Last updated 18.[facility] Allergies Active Allergy Reactions Criticality Noted Date [...] on file Medical Devices Implanted Type Area It Intern Device Identifier Shelf Expiration Date Model / Serial / Lot Wire K .035 X 5.5in Implanted:Qty: 2 on 09/06/2017 by Venice Dueñas MD at [facility] Left: Finger [employer] 1346-002-0 00 / / Description:left index finge r Care Teams Preparation Room Manager Relationship Specialty Start Date End Date Hasmukh Gonzalez MD PCP - General Internal Medicine 08/18/17
--- OUTSIDE RECORDS SUMMARY | 2024-07-13 15:52 | XMS_ITS | Patient Health Summary ---
Author Organization [facility] Address [facility] [facility] [place] [address] Care Team Providers Care Construction Materials Tester Name Role Phone Hasmukh Gonzalez MD Primary Care Provider Unavail able Note from [facility],non-owned Affiliates and Associated Physician Practices is amultiple site organization consisting of ambulatory clinics and hospital sitesin [place], [place], [place] and [place]. This disclosure is being madepursuant to the Care Everywhere program and may not contain all information available regarding this patient. Last updated 18.[facility] ? Allergies * Codeine(Nausea and/or Vomiting,Headache) * Contrast-Iodinated [...] AM CDT Medical Devices Implanted Type Area Real Estate Broker Associate Device Identifier Shelf Expiration Date Model / Serial / Lot Wire K .035 X 5.5in Implanted:Qty: 2 on 09/06/2017 by Venice Dueñas MD at [facility] Left: Finger [employer] 1346-002-0 00 / / Description:left index finge [...] S. Porfirio Dueñas MD [facility] Care Teams Construction Materials Tester Relationship Specialty Start Date End Date Hasmukh Gonzalez MD PCP - General Internal Medicine 08/18/17
--- OUTSIDE RECORDS SUMMARY | 2024-07-13 15:52 | XMS_ITS | Patient Health Record ---
Author Organization [facility] [employer] Address [address] [place] [address] Care Team Providers Care Drywall Foreman Name Role Phone TravisTatyana piercey Unavailable [phone] Agnieszka Sorenson Unavailable [phone] Migration, Provider Unavailable Unavailable Allergies Allergen (clinical drug ingredient) Drug/Non Drug Allergy documented on EMR Reaction Allergy Type Onset Date Status Iodinated contrast media (substance) IODINATED CONTRAST MEDIA (uncoded) Unknown Allergy 07/07/2023 Active codeine Codeine Unknown Drug Allergy 07/07/2023 Active Reason For Referral No Information Medications Medication SIG (Take, Route, Frequency, Duration) Notes Start Date End Date Status Klor-Con M20 20 MEQ Oral 07/07/2023 Active traZODone HCl 100 MG Oral 07/07/2023 Active Furosemide 40 MG Oral 07/07/2023 Ac tive Vilazodone HCl 40 MG 1 tablet with food Oral Once a day for 90 days Active Metoprolol Succinate ER 50 MG Oral 07/07/2023 Active Levothyroxine Sodium 200 MCG Oral 07/07/2023 Active Olopatadine HCl 0.1 % Ophthalmic 07/07/2023 Active Ursodiol 500 mg Oral 07/07/2023 Act francesca Immunizations Vaccine Route Administration Date Status Comme nts Pfizer [employer] Covid-19 Vac cine 2nd dose Unknown 01/01/2021 Administered Pfizer [employer]ion[employer] Covid-19 Vac cine 2nd dose Unknown 01/22/2021 Administered Social History Sex Assigned At : Social History Observation Description Sex Assigned At Female Household Question Answer Notes Marital status: Problems Problem Type SNOMED Code ICD Code Onset Dates Problem Status W/U Status Risk Notes Problem Generalized anxiety disorder (66627469) Generalized anxiety disorder (F41.1) 4 Active confirmed Problem Primary insomnia (0428667) Primary insomnia (F51.01) 4 Active confirmed Problem Amnesia (62086439) Other amnesia (R41.3) 4 Active confirmed Problem 271696910 MDD (major depressive disorder), recurrent episode, mild (F33.0) Active confirmed Vital Signs Heart Rate 89 /min 01/09/2024 Respiratory Rate 18 /min 02/20/2024 Height-cm 165.10 cm 02/20/2024 Blood pressure diastolic 84 mm Hg 01/09/2024 Weight-kg 86.18 kg 02/20/2024 Height 65.00 in 02/20/2024 Blood pressure systolic 141 mm Hg 01/09/2024 Weight 190 lbs 02/20/2024 BMI 31.61 kg/m2 02/20/2024 Encounters Encounter Location Date Provider Diagnosis [address] [address] 01/05/2024 Agnieszka Sorenson [address] [address] 01/09/2024 Agnieszka Sorenson MDD (major depressive disorder), recurrent episode, mild F33.0 ; Generalized anxiety disorder F41.1 ; Primary insomnia F51.01 and Other amnesia R41.[address] [address] 02/20/2024 Agnieszka Therroxane MDD (major depressive disorder), recurrent episode, mild F33.0 ; Generalized anxiety disorder F41.1 ; Primary insomnia F51.01 and Other amnesia R41.[address] [address] 10/22/2023 Provider Migration [address] [address] 10/23/2023 Provider Migration [address] [address] 04/10/2024 Anoop Robles Assessments Encounter Date Diagnosis (ICD Code) Assessment Notes Treatment Notes Treatment Clinical Notes Section Notes 01/09/2024 Generalized anxiety disorder (ICD-10 - F41.1) [...] impairment - monitor R41.3: Other amnesia 01/09/2024 MDD (major depressive disorder), recurrent episode, [...] Memory impairment - monitor R41.3: Other amnesia 02/20/2024 MDD (major depressive disorder), recurrent episode, mild (ICD-10 - F33.0) 1. Recurrent major depression - labs recently- will obtain seen public health service officer recently has AFib Viibyrd 40 mg daily- [...] depression - labs recently- will obtain seen public health service officer recently has AFib Viibyrd 40 mg daily- [...] PCP prescribes 4. Memory impairment - monitor 01/09/2024 Primary insomnia (ICD-10 - F51.01) 1. [...] Memory impairment - monitor R41.3: Other amnesia 02/20/2024 Primary insomnia (ICD-10 - F51.01) 1. Recurrent major depression - labs recently- will obtain seen public health service officer recently has AFib Viibyrd 40 mg daily- [...] depression - labs recently- will obtain seen public health service officer recently has AFib Viibyrd 40 mg daily- [...] depression - labs recently- will obtain seen public health service officer recently has AFib Viibyrd 40 mg daily- [...] Memory impairment - monitor Plan Of Treatment No Information Insurance Providers Payer Name Payer Address Payer Phone Subscriber Number Group Number Insured Name Patient Relationship to Insured Coverage Start Date Coverage End Date Medicare-I l Medicare [address] [place] [address] [id number] FINA ACKERMAN Self - patient is the insured Aetna [address] [place] [address] [id number] FINA ACKERMAN Self - patient is the insured Medical (General) History Medical History History ICD Code Problems: Acute COVID-19 Generalized anxiety disorder Memory impairment Primary insomnia Recurrent major depression , AFIB BILARY Cirrohosis Surgical History Surgery Date(Month/Year) Removal of gallbladder (35620) Hysterectomy (43872) Cataract surgery (71700) Appendectomy (83255) Other
--- OUTSIDE RECORDS SUMMARY | 2024-07-13 15:52 | XMS_ITS | Continuity of Care Document ---
Author Organization [facility] [place] [address] [place] [address] Phone Care Team Providers Care Newborn Photographer Name Role Phone [facility] Unavailable [...] Diagnoses Date Provider Providers Copied on Encounter [facility], [address], [place], [place], [address], [place] tel:[phone] [facility] No Information Feb-201 0 [facility] . [address] [facility], [address], [place], [place], [address], [place]. tel:[phone] Referring Provider: Pamela Valle, [address], [place], [address]. tel:[phone] wadsworth Provider: Lucita Laura, [address] [place] [address], [address]. tel:[phone] Office/outpat ient Visit, Est [facility], [address], [place], [place], [address], [place] tel:[phone] [facility] No Information Sep- 4-201 0 Odilia Santiago. [address], [address], [place], [address], [place]. tel:[phone] [facility], [address], [place], [place], [address], [place] tel:[phone] [facility] No Information Apr-2 4-200 9 Odilia Santiago. [address], [address], [place], [place], [facility], [place]. tel:[phone] [facility], [address], [place], [place], [address], [place] tel:[phone] [facility] No Information Dec-2 9-200 8 [facility] . [address] [facility], [address], [id number], [place]. tel:[phone] Consulting Provider: Mariah Bolden, [address] [place] [address], [address]. tel:[phone] [facility], [address], [place], [place], [address], [place] tel:[phone] [facility] No Information Aug-0 8-200 8 [facility] . [address] [facility], [address], [place], [place], [address], [place]. tel:[phone] Consulting Provider: Mariah Bolden, [address] [place] [address], [facility]. tel:[phone] [facility], [address], [place], [place], [address], tel:[phone] [facility] No Information Jan-0 8-200 8 Odilia Evans [address], [place], [place], [facility], . tel:[phone] [facility], [address], [place], [place], [address], tel:[phone] [facility] No Information 0 2200 8 [facility] . [address] [facility], [address], [place], [place], [address], . tel:[phone] Referring Provider: Pamela Valle, [address], [place], [place], [facility]. tel:[phone] g Provider: Mariah Bolden, [address] [place], [place], [facility]. tel:[phone] [facility], [address] [place] [address] [address], [place], [place], [address], tel:[phone] [facility] No Information 0 1200 8 Odilia Evans [address] , [address], [place], [place], [facility], . tel:[phone] [facility], [address] [place] [address] [address], [place], [place], [address], tel:[phone] [facility] No Information 200 7 Odilia Evans [address] , [address], [place], [place], [facility], . tel:[phone] Family History Family Member Type Diagnosis Age [...]
[2024-07-13 15:54] VITALS: BP 186/110; PULSE 61; RESP 28; O2SAT 94
[2024-07-13] MEDS: FUROSEMIDE INJ 100 MG/10 ML VIAL 80 MG IV PUSH (17:12)
[2024-07-13 17:39] VITALS: BP 162/90; PULSE 59; RESP 22; O2SAT 98
[2024-07-13 18:15] VITALS: BP 157/73; PULSE 59; RESP 18; O2SAT 95
--- NOTE | 2024-07-13 19:45 | PC.NURSE ---
Patients nephew called for transport home
[2024-07-13 19:46] VITALS: BP 157/83; PULSE 58; RESP 18; TEMP 36.5; O2SAT 97
== END 2024-07-13 20:25 | disposition home or self-care (01) ==
PROVIDERS: Emergency Medicine; Emergency Provider Student in an Organized Health Care Education/Training Program; PCP Nurse Practitioner
DX: I13.0 Hypertensive heart and chronic kidney disease with heart failure and stage 1 through stage 4 chronic kidney disease, or unspecified chronic kidney disease (principal); I50.9 Heart failure, unspecified; T50.1X6A Underdosing of loop [high-ceiling] diuretics, initial encounter; Z91.A28 Caregiver's intentional underdosing of medication regimen for other reason; N18.9 Chronic kidney disease, unspecified; I48.0 Paroxysmal atrial fibrillation; I42.1 Obstructive hypertrophic cardiomyopathy; E78.5 Hyperlipidemia, unspecified; E03.9 Hypothyroidism, unspecified; E55.9 Vitamin D deficiency, unspecified; J84.10 Pulmonary fibrosis, unspecified; K74.3 Primary biliary cirrhosis; M35.00 Sjogren syndrome, unspecified; F32.A Depression, unspecified; F41.9 Anxiety disorder, unspecified; Z96.659 Presence of unspecified artificial knee joint; Z85.828 Personal history of other malignant neoplasm of skin; Z87.891 Personal history of nicotine dependence; Z90.710 Acquired absence of both cervix and uterus; Z90.49 Acquired absence of other specified parts of digestive tract; Z79.899 Other long term (current) drug therapy; I45.9 Conduction disorder, unspecified; R94.31 Abnormal electrocardiogram [ECG] [EKG]; I51.7 Cardiomegaly
CPT/HCPCS: 36415; 71046; 80053; 83880; 84484; 85025; 85610; 85730; 93005; 96374; 99284; J1940

== ENCOUNTER 2024-07-31 11:43 | Emergency (ER) | payer MEDICARE, SELFPAY ==
[2024-07-31] VITALS (16 sets, daily range): BP systolic 156–172; BP diastolic 76–91; PULSE 53–67; RESP 14–29; TEMP 36.5–36.6; O2SAT 94–100
--- NOTE | ~2024-07-31 | XR_ITS ---
EXAMINATION: XR chest 2V Exam Date/Time: 07/31/2024 15:00 DRUG REGULATORY AFFAIRS SPECIALIST HISTORY: dyspnea Comparison: None. RESULT: Lines, tubes, and devices: None. Lungs and pleura: Mild diffuse reticular opacities. No focal consolidation, pleural effusion, or pne umothorax.. Cardiomediastinal silhouette: Stable. Other: No acute osseous or upper abdominal finding. IMPRESSION: Mild interstitial edema versus chronic senescent/interstitial change. Reviewed, dictated and finalized at location K. REGULATORY AFFAIRS SPECIALIST
--- OUTSIDE RECORDS SUMMARY | 2024-07-31 13:47 | XMS_ITS | Referral Summary ---
Author Organization [facility] [employer] Address [address] [facility] [place] [address] Care Team Providers Care Telephone Maintainer Name Role Phone Hasmukh Gonzalez MD Primary Care Provider Unavail able Source Comments [facility] [employer],non-owned Affiliates and Associated Physician Practices is amultiple site organization consisting of ambulatory clinics and hospital sitesin [place], [place], [place] and [place]. This disclosure is being madepursuant to the Care Everywhere program and may not contain all information available regarding this patient. Last updated 18.[facility] [employer] Allergies Active Allergy Reactions Criticality Noted Date [...] on file Medical Devices Implanted Type Area Department Traffic Freight Router Device Identifier Shelf Expiration Date Model / Serial / Lot Wire K .035 X 5.5in Implanted:Qty: 2 on 09/06/2017 by Venice Dueñas MD at [facility] Left: Finger [employer] 1346-002-0 00 / / Description:left index finge r Care Teams Telephone Maintainer Relationship Specialty Start Date End Date Hasmukh Gonzalez MD PCP - General Internal Medicine 08/18/17
--- OUTSIDE RECORDS SUMMARY | 2024-07-31 13:47 | XMS_ITS | CONTINUITY OF CARE DOCUMENT ---
Author Name alicja jeremyyesika Address Unknown Organization [facility] Address [address] [place] [address] Phone [phone] Care Team Providers Care Flight Communications Operator Name Role Phone Jl Corey MD Unavailable [phone] MARIYA DO, PAYAL Unavailable [phone] MARIYA DO, PAYAL Unavailable [phone] PROBLEMS Condition Status Date Provider Notes Microalbuminuria [...] In-person encounter Office Visit Jl Corey MD [facility] Atrial fibrillation, chronic;tsh on rxDiastolic CHFOverweightPrimary biliary cirrhosisScreening - In-person encounter Office Visit Jl Corey MD [facility] Atrial fibrillation, chronic;tsh on rxHypertension;neg duplexElevated LFT'sHypoalbuminemiacovid and had vaccineFAMILY HISTORY OF HEART DISEASEHyperlipidemia;with high crp and lpa 117HypothyroidismScreening - In-person encounter Office Visit Jl Corey MD [facility] Primary biliary cirrhosis - In-person encounter Office Visit Jl Corey MD [facility] LBBBAtrial fibrillation, chronic;tsh on rxHypertension;neg duplexDiastolic [...] Charlette Sparrow height E&M 65 [in_i] [facility] Body Mass Index (Ratio) 31.45 kg/m2 Jacqui Corey MD blood pressure, diastolic 112 mm[Hg] Cari Gordillo blood pressure, systolic 187 mm[Hg] Sharla Gordillo oxygen saturation, oximetry 94 % Sara Walhalla respiratory rate E&M 94 /min Sara Walhalla pulse rate 72 /min Sara Walhalla weight E&M 189 [lb_av] Sara Walhalla height E&M 65 [in_i] Sara Walhalla blood pressure, cuff size regular Cari baca [...] iron binding capacity, unsaturated 250 ug/dL [employer] [phone]/10/3 1 iron binding capacity, total 283 ug/dL [employer] [phone]/10/3 1 microalbumin/creatin ine ratio, urine 49 MG/G [...] 0-149 1 cholesterol, serum 175 mg/dL [employer] [phone]/10/3 1 hemoglobin A1C, blood, as % of [...] Estab. 1 platelet count 332 X10E3/UL [employer] [phone]/10/3 1 red blood cell distribution width 13.4 [...] 3.5-5.2 2 sodium, serum 140 mmol/L [employer] [phone]/10/2 2 urea nitrogen/creatinine ratio, serum 13 [employer] [...] pen injector subcutaneously once a week - [facility] Specialist losartan 25 mg tablet completed [...] levothyroxine 200 mcg tablet active Radha Owenmiglia PERCH MACHINE INSPECTOR Klor-Con M20 20 mEq tablet,ER particles/twan ls completed - Radhabrittney Owenmiglgiovanni BURKSP furosemide 40 mg tablet completed - Radha Owenmiglia MELISSA albuterol sulfate 90 mcg/actuation HFA aerosol inhaler active Radha Owenmiglia PERCH MACHINE INSPECTOR metoprolol succinate 50 mg tablet extended release [...] history of marijuana use no Radha Owenmiglia PERCH MACHINE INSPECTOR drug use no Radha Ventimig geraldine PERCH MACHINE INSPECTOR alcohol use no Radha Ventimig geraldine PERCH MACHINE INSPECTOR smoking status Never smoker Radha Gutierrez iglgiovanni BURKSP FAMILY HISTORY Family Member Condition Full Brother CAD male <55 Father Stroke/CVA INSURANCE PROVIDERS Payer name Policy type / Coverage type [place] red republican ID AETNA MEDICARE JUDIE PPO Medicare [id number] 500 ADVANCE DIRECTIVES Name Date DISCUSSED - NO DECISION MADE TREATMENT PLAN Date Name Performer Cardiology Jl Corey MD Cardiology Jl Corey MD Cardiology: M ILLD [place] AND SEVERE TR ADN MILD AND MILD [...] 55 Jl Corey MD Cardiology: M ILLD [place] AND SEVERE TR ADN MILD AND MILD [...] Corey MD Cardiology Jl Corey MD :MILLD [place] AND SEVERE TR ADN MILD AND MILD MR Jl Corey MD :58 Jl Corey MD :3040 EF 55 Jl Corey MD :57 Jl Corey MD Cardiology:with asso ciated SOB with minimal exertion. p lanned for stress test to r/o ischemia H er updated medication list for this problem includes: Metoprolol Succinate 50 Mg Tablet Extended Release 24 Hr (Metoprolol succinate) [facility] Cardiology:egfr of 5 3 on last labs W ill do renal duplex [facility] Cardiology:LFTs only mildly elevated on last labs [facility] Cardiology:BP above goal will add losartan H er updated medication list for this problem includes: Losartan 25 Mg Tablet (Losartan) ..... Take 1 tablet by mouth once daily Metoprolol Succinate 50 Mg Tablet Extended Release 24 Hr (Metoprolol succinate) [facility] Cardiology:chronic r ate controlled p atient had nosebleeds with xarelto s he refuses all AC W e did discuss risk of stoke and she verbalized understanding H er updated medication list for this problem includes: Metoprolol Succinate 50 Mg Tablet Extended Release 24 Hr (Metoprolol succinate) [facility] Cardiology: 3 040, ef 65 S he has continued SOB with minimal activity l ast echo 07/2022 at [facility] ill upadat echo [facility] :41 Jl Corey MD :3040, ef 65 Jl Corey MD :53 Jl Corey MD Cardiology:weight loss encourage d [facility] Cardiology:controlle d T he following medications were removed from the medication list: Furosemide 40 Mg Tablet (Furosemide) Her updated medication list for this problem includes: Metoprolol Succinate 50 Mg Tablet Extended Release 24 Hr (Metoprolol succinate) [facility] Cardiology:patient h as SOB with [...] Release 24 Hr (Metoprolol succinate) Radha Murillo PERCH MACHINE INSPECTOR Cardiology:rate cont rolled on metoprolol c oncern contibuting to her SOB W ill add xarelto for AC p gwyn tele monitor g et recent labs and echo from [facility] post testing H er updated medication list for this problem includes: Metoprolol Succinate 50 Mg Tablet Extended Release 24 Hr (Metoprolol succinate) Radha Murillo [facility] Date Name Complete Echo Stress Regadenoson CT, [...] tatus Complex e/m visit ad d on lJ Corey MD completed Complex e/m visit ad d on Jl Corey MD [04/19/2024 - rose] AUTH DENIED [ 04/11/2024 - rose] PENDING [ 04/02/2024 - roxie] completed SATINDER Corey MD complete d
--- OUTSIDE RECORDS SUMMARY | 2024-07-31 13:47 | XMS_ITS ---
Author Organization [facility] [employer] Address [address] [place] [address] Care Team Providers Care Assistant Community Manager Name Role Phone Anoop Robles Unavailable [phone] Agnieszka Sorenson Unavailable [phone] Allergies Allergen (clinical drug ingredient) Drug/Non Drug [...] 02/20/2024 Encounters Encounter [facility] [address] [place] [address] 02/20/2024 Agnieszka Sorenson MDD (major depressiv e disorder), recurrent episode, mild F33.0 ; Generalized anxiety disorder F41.1 ; Primary insomnia F51.01 and Other amnesia R41.3 Assessments Encounter Date Diagnosis (ICD Code) Assessment Notes Treatment Notes Treatment Clinical Notes Section Notes 02/20/2024 MDD (major depressive disorder), recurrent episode, mild (ICD-10 - F33.0) 1. Recurrent major depression - labs recently- will obtain seen orientation and mobility instructor recently has AFib Viibyrd 40 mg daily- [...] depression - labs recently- will obtain seen orientation and mobility instructor recently has AFib Viibyrd 40 mg daily- [...] depression - labs recently- will obtain seen orientation and mobility instructor recently has AFib Viibyrd 40 mg daily- [...] depression - labs recently- will obtain seen orientation and mobility instructor recently has AFib Viibyrd 40 mg daily- [...] depression - labs recently- will obtain seen orientation and mobility instructor recently has AFib Viibyrd 40 mg daily- [...] Notes * BRANT ACKERMANOB:1940 (83 yo F)Acc No.[id number]:02/20/2024 Patient: FINA WARD Provider: NATALI COSTA :1940 A ge:83 Y S ex:Female Date:02/20/2024 Address:[facility] Subjective: * Chief Complaints: * 1 . [...] gummi and hx oil is going great. Medical Equipment Technician Azael not driving now chronic pain DementiaReported [...] palpitations; H X CHF 12/22, SOB see orientation and mobility instructor Darren JOHNSON seeing orientation and mobility instructor hx heart monitor hx She reports no [...] n - labs recently- will obtain seen orientation and mobility instructor recently has AFib Viibyrd 40 mg daily- [...] O thers Notes: referral to the [place] [facility] office of the Alzheimer's Association ( ;http://www.alz.org), the Alzheimer'sDisease Education and Referral Center (ADEAZ) ( ;http://www.halley.nih.gov/Alzh ktah/), * Procedure Codes: G 2211 VISIT COMPLEXITY INHERENT TO ONGOING CARE RELATED TO A PATIENT'S SINGLE, SERIOUS CONDITION OR A COMPLEX CONDITION * Follow Up: 6 Months (Reason: f/u Viibyrd) * Billing Information: * Visit Code: 74684 OFFICE OUTPATIENT VISIT 25 MINUTES DETAILED HISTORY AND EXAM/MODERATE MEDICAL DECISION MAKING. * Procedure Codes: G2211 VISIT COMPLEXITY INHERENT TO ONGOING CARE RELATED TO A PATIENT'S SINGLE, SERIOUS CONDITION OR A COMPLEX CONDITION. * Sign off status: Completed true * Provider: NATALI COSTA Date: 0 02/20/2024 Generated for Giovanni corbin/Faxing/eTransmitting on: 0 07/31/2024 01:47 PM WOOD MILLER History and Physical Notes * HPI (History [...] gummi and hx oil is going great. Medical Equipment Technician Azael not driving now chronic pain DementiaReported [...]
--- OUTSIDE RECORDS SUMMARY | 2024-07-31 13:47 | XMS_ITS | Patient Health Summary ---
Author Organization [facility] [employer] Address [facility] [facility] [place] [address] Care Team Providers Care Table Cut Off Saw Operator Name Role Phone Hasmukh Gonzalez MD Primary Care Provider Unavail able Note from [facility],non-owned Affiliates and Associated Physician Practices is amultiple site organization consisting of ambulatory clinics and hospital sitesin [place], [place], [place] and [place]. This disclosure is being madepursuant to the Care Everywhere program and may not contain all information available regarding this patient. Last updated 18.[facility] [employer] Allergies * Codeine(Nausea and/or Vomiting,Headache) * Contrast-Iodinated [...] AM CDT Medical Devices Implanted Type Area Book Repairer Device Identifier Shelf Expiration Date Model / Serial / Lot Wire K .035 X 5.5in Implanted:Qty: 2 on 09/06/2017 by Venice Dueñas MD at [facility] Left: Finger [employer] 1346-002-0 00 / / Description:left index finge [...] Region Laterality Modality Wrist / Hand Radiographic Pricsa ging 08/18/2017 3:22 PM CDT Narrative 08/18/2017 [...] S. Porfirio Dueñas MD DIAGNOSTIC IMAGING [facility] Care Teams Table Cut Off Saw Operator Relationship Specialty Start Date End Date Hasmukh Gonzalez MD PCP - General Internal Medicine 08/18/17
--- OUTSIDE RECORDS SUMMARY | 2024-07-31 13:48 | XMS_ITS ---
Author Organization [facility] Address [address] [place] [address] Care Team Providers Care Storage Management Architect Name Role Phone Anoop Robles Unavailable [phone] Agnieszka Sorenson Unavailable [phone] Allergies Allergen (clinical drug ingredient) Drug/Non Drug [...] Problem Status W/U Status Risk Notes Problem 249129534 MDD (major depressive disorder), recurrent episode, mild (F33.0) Active confirmed Problem Generalized anxiety disorder (31416121) Generalized anxiety disorder (F41.1) 02/01/202 4 Active confirmed Problem Primary insomnia (5220230) Primary insomnia (F51.01) 4 Active confirmed Problem Amnesia (37270479) Other amnesia (R41.3) 4 Active confirmed Vital Signs Blood pressure systolic 141 mm Hg 01/09/20 24 Blood pressure diastolic 84 mm Hg 024 Heart Rate 89 /min 01/09/2024 Height 65.00 in 01/09/2024 Weight 141.2 lbs 01/09/2024 BMI 23.49 kg/m2 01/09/2024 Height-cm 165.10 cm 01/09/2024 Weight-kg 64.05 kg 01/09/2024 Encounters Encounter Location Date Provider Diagnosis [facility] [address] [facility] [address] [place] [address] 01/09/2024 Agnieszka Sorenson MDD (major depressiv e [...] Notes * HOLLY ACKERMANEDOB:1940 (83 yo F)Acc No.[id number]:01/09/2024 Patient: FINA WARD Provider: NATALI COSTA :1940 A ge:83 Y S ex:Female Date:01/09/2024 Address:[address] [place] [address], [facility] Subjective: * Chief Complaints: * 1 . [...] for handicap bathroom, I am still at [facility] and not good there, and not [...] and LLE swell up then, I see ve teacher next week, a nd appetite slack off and I eat with rx, weight stable, but part of it fluid, a nd concentration and focus good I play Soocial and read, tv, memory been pretty good, a nd not much energy no psychosis no chauncey, no SI/HI, Medical MJ DROPS CBD gummi and hx oil is going great. Button Puncher Azael not driving now chronic pain DementiaReported [...] palpitations; H X CHF 12/22, SOB see ve teacher seeing ve teacher had heart monitor hx She reports no [...] Viibyrd) * Billing Information: * Visit Code: 95435 OFFICE OUTPATIENT VISIT 25 MINUTES DETAILED HISTORY AND EXAM/MODERATE MEDICAL DECISION MAKING. * Procedure Codes: G2211 VISIT COMPLEXITY INHERENT TO ONGOING CARE RELATED TO A PATIENT'S SINGLE, SERIOUS CONDITION OR A COMPLEX CONDITION. * Sign off status: Completed true * Provider: ANDREA COSTAP Date: 01/09/2024 Generated for Giovanni corbin/Latricia/Praful on: 07/31/2024 01:48 PM CHURN DRILLER History and Physical Notes * HPI (History [...] for handicap bathroom, I am still at [facility] and not good there, and not [...] and LLE swell up then, I see ve teacher next week, and appetite slack off and I eat with rx, weight stable, but part of it fluid, and concentration and focus good I play bingo and read, tv, memory been pretty good, and not much energy no psychosis no chauncey, no SI/HI, Medical MJ DROPS CBD gummi and hx oil is going great. Button Puncher Azael not driving now chronic pain DementiaReported [...]
--- OUTSIDE RECORDS SUMMARY | 2024-07-31 13:48 | XMS_ITS | Patient Health Record ---
Author Organization [facility] Address [address] [place] [address] Care Team Providers Care Metal Dresser Name Role Phone Aster Kirby Primary Care Provider UnavailSophie Cool Unavailable [phone] Mackenzie Obando Unavailable [phone] ZZ-Migration, Provider Unavailable Unavailab le Allergies Allergen [...] Status Risk Notes Problem Chronic allergic conjunctivitis (05716144) Other chronic allergic conjunctivitis (H10.45) Active confirmed Problem Allergic rhinitis caused by pollen (disorder) (79891403) Allergic rhinitis due to pollen (J30.1) Active confirmed Problem Allergic rhinitis (71351312) Other allergic rhinitis (J30.89) Active confirmed Problem 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 confirmed Problem Allergic rhinitis caused by animal hair and dander (167754528618258) Allergic rhinitis due to animal (cat) (dog) hair and dander (J30.81) Active confirmed Encounters Encounter Location Date Provider Diagnosis DYLON Martino [address] [place] [address] 11/19/2023 Provider Lindsay Allergic rhinitis due to pollen J30.1 Assessments Encounter Date Diagnosis (ICD Code) Assessment Notes Treatment Notes Treatment Clinical Notes Section Notes 11/19/2023 Allergic rhinitis due to pollen (ICD-10 - J30.1) Plan Of Treatment No Information Insurance Providers Payer Name Payer Address Payer Phone Subscriber Number Group Number Insured Name Patient Relationship to Insured Coverage Start Date Coverage End Date Aet[employer] Choice POS II [address] [place] [address] [id number] Jenniffer Cm Self - patient is the insured 4 Medical (General) History Medical History History ICD Code hypothyroidism primary biliary cirrhosis osteoarthritis heart murmur Surgical History Surgery Date(Month/Year) tubal ligation 1972 hysterectomy 1973 cholecystectomy 1986 knee replacements 3990-1411 Hospitalization History Reason Date(Month/Year) pneumonia 07/2022 childbirth 1973 childbirth 1967 childbirth 1964 childbirth 1962
--- OUTSIDE RECORDS SUMMARY | 2024-07-31 13:48 | XMS_ITS ---
Author Organization [facility] Address [address] [place] [address] Care Team Providers Care Event Security Officer Name Role Phone Kirby Rodarte Primary Care Provider UnavailSophie Cool Unavailable [phone] Mackenzie Obando Unavailable [phone] Allergies Allergen (clinical drug ingredient) Drug/Non Drug [...] 07/13/2023 Encounters Encounter Location Date Provider Diagnosis [facility] [address] [address] 07/13/2023 Mackenzie Obando Allergic rhinitis du e [...] Notes * Bart ACKERMANOB:1940 (83 yo F)Acc No.[id number]:07/13/2023 Progress Notes Patient: Jenniffer WARD Provider: Robin Obando MD :1940 A ge:83 Y S ex:Female Date:07/13/2023 Address:[address] [place] [address], [address], [facility] Pcp:Kirby Rodarte Subjective: * Chief Complaints: * [...] t ubal ligation 1972hysterectomy 1974cholecystectomy 1986knee replacements 2420-2810 * Hospitalization/Major Diagno stic Procedure: c hildbirth [...] n ot performed. Influenza Vaccine not administered R belem: P atient Reason T ype of Patient Reason: R efused Assessment: * Assessment: 1. A llergic rhinitis [...] Codes: 9 5004 PRICK TESTS, Units: 72.00 83939 PT-FOCUSED HLTH RISK [id number] DOC MEDS VERIFIED W/PT OR RJJ1038 FLU IMM NO ORD/ADMIN DOC LIZY * [...] Management) * Billing Information: * Visit Code: 50726 Office Visit, New Pt., Level 3. Modifiers: 25 * Procedure Codes: 70332 PRICK TESTS. Units: 72.00. 40338 PT-FOCUSED HLTH RISK ASSMT. G8427 DOC MEDS VERIFIED W/PT OR RE. G8483 FLU IMM NO ORD/ADMIN DOC LIZY. Images * 07/13/2023 skin prick testin g * UET CHEF Sign off status: Completed true * Provider: Robin Obando MD Date: 07/13/2023 Generated for Giovanni corbin/Latricia/Mckenzieitting on: 07/31/2024 01:48 PM BANQUET CHEF History and Physical Notes * HPI (History [...]
--- OUTSIDE RECORDS SUMMARY | 2024-07-31 13:48 | XMS_ITS ---
Author Organization [facility] Address [address] [place] [address] Care Team Providers Care Chief Arson Division Name Role Phone Kirby Rodarte Primary Care Provider UnavailSophie Cool Unavailable [phone] Mackenzie Obando Unavailable [phone] REASON FOR VISIT ARC follow-up Encounters Encounter Location Date Provider Diagnosis [facility] [address] [place] [address] 08/10/2023 Mackenzie Obando Plan Of Treatment No Information Progress Notes * Bart ACKERMANOB:1940 (84 yo F)Acc No.[id number]:08/10/2023 Progress Notes Patient: Jenniffer WARD Provider: Robin Obando MD :1940 A ge:83 Y S ex:Female Date:08/10/2023 Address:[address], [address], [facility] Pcp:Kirby Rodarte Subjective: * Chief Complaints: * 1 . ARC follow-up. * Medical History: Objective: * Vitals: Assessment: Plan: * Treatment: * Billing Information: * Visit Code: * Procedure Codes: * Electronic signature of Cony Obando MD on 07/31/2024 at 01:48 PM FOOD DEMONSTRATOR Sign off status: Pending * Provider: Robin Obando MD Date: 0 08/10/2023 Generated for Giovanni corbin/Latricia/Praful on: 0 07/31/2024 01:48 PM FOOD DEMONSTRATOR
--- OUTSIDE RECORDS SUMMARY | 2024-07-31 13:49 | XMS_ITS | Patient Health Record ---
Author Organization [facility] Address [address] [place] [address] Care Team Providers Care Delta System Freight Car Cleaner Name Role Phone TravisTatyana piercey Unavailable [phone] Agnieszka Sorenson Unavailable [phone] Migration, Provider Unavailable Unavailable Allergies Allergen (clinical [...] Status Risk Notes Problem Generalized anxiety disorder (44443326) Generalized anxiety disorder (F41.1) 4 Active confirmed Problem Primary insomnia (6013468) Primary insomnia (F51.01) 4 Active confirmed Problem Amnesia (53431776) Other amnesia (R41.3) 4 Active confirmed Problem 689312270 MDD (major depressive disorder), recurrent episode, mild (F33.0) Active confirmed Vital Signs Heart Rate 89 /min 01/09/2024 Respiratory Rate 18 /min 02/20/2024 Height-cm 165.10 cm 02/20/2024 Blood pressure diastolic 84 mm Hg 01/09/2024 Weight-kg 86.18 kg 02/20/2024 Height 65.00 in 02/20/2024 Blood pressure systolic 141 mm Hg 01/09/2024 Weight 190 lbs 02/20/2024 BMI 31.61 kg/m2 02/20/2024 Encounters Encounter Location Date Provider Diagnosis [address] [address] 01/05/2024 Agnieszka Sorenson [address] [address] 01/09/2024 Agnieszka Sorenson MDD (major depressive disorder), recurrent episode, mild F33.0 ; Generalized anxiety disorder F41.1 ; Primary insomnia F51.01 and Other amnesia R41.[address] [address] 02/20/2024 Agnieszka Therroxane MDD (major depressive disorder), recurrent episode, mild F33.0 ; Generalized anxiety disorder F41.1 ; Primary insomnia F51.01 and Other amnesia R41.[address] [address] 10/22/2023 Provider Migration [address] [address] 10/23/2023 Provider Migration [address] [address] 04/10/2024 Anoop Robles Assessments Encounter Date Diagnosis [...] depression - labs recently- will obtain seen service greeter recently has AFib Viibyrd 40 mg daily- [...] depression - labs recently- will obtain seen service greeter recently has AFib Viibyrd 40 mg daily- [...] depression - labs recently- will obtain seen service greeter recently has AFib Viibyrd 40 mg daily- [...] depression - labs recently- will obtain seen service greeter recently has AFib Viibyrd 40 mg daily- [...] depression - labs recently- will obtain seen service greeter recently has AFib Viibyrd 40 mg daily- [...] Date Medicare-I l Medicare [address] [place] [address] [id number] FINA ACKERMAN Self - patient is the insured Aetna [address] [place] [address] [id number] FINA ACKERMAN Self - patient is the insured Medical (General) History Medical History History ICD Code Problems: Acute COVID-19 Generalized anxiety disorder Memory impairment Primary insomnia Recurrent major depression , AFIB BILARY Cirrohosis Surgical History Surgery Date(Month/Year) Removal of gallbladder (10237) Hysterectomy (83956) Cataract surgery (87817) Appendectomy (99908) Other
--- OUTSIDE RECORDS SUMMARY | 2024-07-31 13:49 | XMS_ITS | Clinical Summary ---
Author Organization [facility] Address [facility] [facility] [place] [address] Care Team Providers Care Jig Filler Name Role Phone Hasmukh Gonzalez MD Primary Care Provider Unavail able Source Comments [facility],non-owned Affiliates and Associated Physician Practices is amultiple site organization consisting of ambulatory clinics and hospital sitesin [place], [place], [place] and [place]. This disclosure is being madepursuant to the Care Everywhere program and may not contain all information available regarding this patient. Last updated 18.[facility] Allergies Active Allergy Reactions Criticality Noted Date [...] this topic Medical Devices Implanted Type Area Airport Operations Specialist Device Identifier Shelf Expiration Date Model / Serial / Lot Wire K .035 X 5.5in Implanted:Qty: 2 on 09/06/2017 by Venice Dueñas MD at [facility] Left: Finger [employer] [id number] 00 / / Description:left index finge r Care Teams Jig Filler Relationship Specialty Start Date End Date Hasmukh Gonzalez MD PCP - General Internal Medicine 08/18/17
--- OUTSIDE RECORDS SUMMARY | 2024-07-31 13:49 | XMS_ITS ---
Author Organization [facility] Address [address] [place] [address] Care Team Providers Care Observer Gravity Prospecting Name Role Phone Kirby Rodarte Primary Care Provider UnavailSophie Cool Unavailable [phone] ZZ-Migration, Provider Unavailable Unavailab le Allergies Allergen (clinical drug ingredient) Drug/Non Drug Allergy documented on EMR Reaction Allergy Type Onset Date Status CONTRAST DYE (uncoded) other reaction Allergy Active codeine Codeine stomach upset Drug Allergy Act francesca [facility] Conversion Encounter Medications Medication SIG (Take, [...] Active Encounters Encounter Location Date Provider Diagnosis [facility] [address] [place] [address] 11/19/2023 Provider Lindsay Allergic rhinitis due to [...] Notes * Bart ACKERMANOB:1940 (84 yo F)Acc No.[id number]:11/19/2023 Patient: Jenniffer WARD Provider: David Jeffers :1940 A ge:83 Y S ex:Female Date:11/19/2023 Address:[address] [place] [address], [address], [facility] Pcp:Kirby Rodarte Subjective: * Chief Complaints: * [address] [facility] Conversion Encounter. * Medical History: * [...] Electronic signature of Prov susan SHAHID-Migration on 07/31/2024 at 01:48 PM PHYSICIAN'S ASSISTANT Sign off status: Pending * Provider: David coyne Migration Date: 0 11/19/2023 Generated for Giovanni corbin/Latricia/Mckenzieitting on: 0 07/31/2024 01:48 PM PHYSICIAN'S ASSISTANT
--- OUTSIDE RECORDS SUMMARY | 2024-07-31 13:49 | XMS_ITS ---
Author Organization [facility] Address [facility] [facility] [address] [place] [address] Care Team Providers Care Solar Sales Manager Name Role Phone Anoop Robles Unavailable [phone] Social History Sex Assigned At : Social History Observation Description Sex Assigned At Female Encounters Encounter Location Date Provider Diagnosis [facility] [address] [address] 04/10/2024 Anoop Robles Plan Of Treatment No Information Progress Notes * BRANT ACKERMANOB:1940 (84 yo F)Acc No.[id number]:04/10/2024 Patient: FINA WARD :1940 A ge:84 Y S ex:Female [place], [address] * true * Date: Generated for Amayai shaquille/Latricia/eTransmitting on: 0 07/31/2024 01:48 PM BITUMINOUS PAVING MACHINE OPERATOR
--- NOTE | 2024-07-31 14:30 | ECG_ITS ---
Test Date: 2024-07-31 15:53:01 Measurements Intervals Cascade Rate: 61 P: 0 OK: 0 QRS: -40 QRSD: 116 T: 72 QT: 439 QTc: 445 Interpretive Statements ATRIAL FIBRILLATION LEFT AXIS DEVIATION INTRAVENTRICULAR CONDUCTION DELAY PATTERN CONSISTENT WITH PULMONARY DISEASE LEFT VENTRICULAR HYPERTROPHY WITH ST-T CHANGE BASELINE ARTIFACT- I, II, III, AVR, AVL, AVF, V1 Compared to ECG 07/13/2024 13:01:00 NO SIGNIFICANT CHANGE Electronically Signed On 07-31-2024 16:39:29 BUSINESS STRATEGY MANAGER by Donte Esqueda D.O.
--- NOTE | 2024-07-31 14:33 | ED_ITS ---
HPI - SOB/Dyspnea General Chief Complaint: Shortness of Breath/Dyspnea <Roni Dacosta PA-C - Last Filed: 07/31/24 14:37> Stated Complaint: weakness, sob <Roni Dacosta PA-C - Last Filed: 07/31/24 14:37> Time Seen by Provider: 07/31/24 18:00 <Roni Dacosta PA-C - Last Filed: 07/31/24 14:37> Focused HPI: This is a 20-year-old female who presents to the ED for chief complaint of dyspnea on exertion and generalized weakness for the past 2-3 days. Patient reports history of CHF and does endorse bilateral lower extremity swelling. States she is taking her 40 mg of Lasix daily and that this prescription has not changed. Endorses a central chest pressure sensation but no chest pain. States that she had a near syncopal episode while making breakfast this morning and had to lower herself to the chair. Denies fevers, chills, body aches, cough, palpitations, numbness, weakness GENERAL: Well-appearing, well-nourished, and in no acute distress. HEAD: Normocephalic, atraumatic. CHEST: Clear to auscultation. No respiratory distress. HEART: Regular rate and rhythm. EXT: 3+ to 4+ pitting edema to BLE. no erythema. Normal pulses NEURO: Alert and oriented x3. Patient screened in triage and initial orders placed. Additional care and disposition to be based upon diagnostic testing and treatment. <Roni Dacosta PA-C - Last Filed: 07/31/24 14:37> Source: patient <Roni Dacosta PA-C - Last Filed: 07/31/24 14:37> Mode of arrival: ambulatory <JAYLA Gonzalez Last Filed: 07/31/24 14:37> Limitations: no limitations <Roni Dacosta PA-C - Last Filed: 07/31/24 14:37> History of Present Illness HPI Narrative: I agree with the evaluation, assessment and documentation by Roni Dacosta PA-C. <Dorota Carvalho APRN - Last Filed: 07/31/24 21:40> Related Data Home Medications: Home Medications ?Medication ?Instructions ?Recorded ?Confirmed ?Last Taken ?Type vilazodone 20 mg tablet 20 mg PO DAILY 02/20/23 04/18/24 Unknown History <Roni Dacosta PA-C - Last Filed: 07/31/24 14:37> Allergies/Adverse Reactions: Allergies Allergy/AdvReac Type Severity Reaction Status Date / Time Gadolinium-Containing Allergy Severe Chest Pain Verified 07/31/24 15:49 Contrast Medi adhesive tape Allergy Mild Rash Verified 07/31/24 15:49 ioversol Allergy Unknown Other Verified 07/31/24 15:49 morphine Allergy Unknown Liver Verified 07/31/24 15:49 function tests abnormal acetaminophen AdvReac Severe kidney Verified 07/31/24 15:49 stop working tramadol AdvReac Severe Other Verified 07/31/24 15:49 benzonatate AdvReac Unknown Headache Verified 07/31/24 15:49 codeine AdvReac Unknown Headache Verified 07/31/24 15:49 <Roni Dacosta PA-C - Last Filed: 07/31/24 14:37> Review of Systems 2 Review of Systems: All systems reviewed & are unremarkable except as noted in HPI and below <Dorota Carvalho APRN - Last Filed: 07/31/24 21:40> [facility] Past Medical History Medical History: Medical History Urinary catheter insertion/adjustment/removal Anxiety and depression Shingles Meniere disease Sjogren syndrome Rectocele Interstitial pulmonary fibrosis Vitamin D deficiency PAF (paroxysmal atrial fibrillation) CKD (chronic kidney disease) Hyperlipidemia Hypothyroidism Hypertension HOCM (hypertrophic obstructive cardiomyopathy) Primary biliary cirrhosis Vertigo Actinic keratosis History of basal cell carcinoma (BCC) Chin <Roni Dacosta PA-C - Last Filed: 07/31/24 14:37> Surgical History Surgical History: Surgical History History of bladder surgery bladder suspension History of knee replacement - 1997, 1998, 1999, 2001 History of cholecystectomy 1996 H/O: hysterectomy 1974 History of tubal ligation 1972 <Roni Dacosta PA-C - Last Filed: 07/31/24 14:37> Family History Family History: Family History Father Hypertension Cerebrovascular accident, Onset Age: 70 Patient's father is Mother Hypertension Family history of aortic aneurysm, Onset Age: 81 Sibling Hypertension Family history of diabetes mellitus in first degree relative Family history of coronary artery disease Family history of premature coronary heart disease Patient's brother is Family history of malignant neoplasm of brain Family history of type 2 diabetes mellitus Sibling Diabetes mellitus Heart disease Advanced hepatic cirrhosis <Roni Dacosta PA-C - Last Filed: 07/31/24 14:37> Social History Social History: Social History Social History: Caffeine-daily Smoking status: Former smoker Second hand tobacco smoke exposure: Yes Alcohol intake: never Substance use: current Other substance usage details: CBD gummies Do You Feel Safe in your Home?: Yes Lack of Transportation: No Lack of Food: Never True Current Housing: I Have Housing Concerned About Future Housing: No Difficulty Paying Gas/Electric Bills: No Difficulty Paying for Meds: No Currently Unemployed: No Education: High School Diploma/GED Difficulty w/ Childcare or Family Care: No Living arrangements: with family Occupation/Education: retired Additional occupation/education comments: [employer]. Gender identity (if verbalized by the patient): Female Spiritual care concerns: No <Roni Dacosta PA-C - Last Filed: 07/31/24 14:37> Exam 2 Narrative: GENERAL: Well appearing, obese, non-toxic, in no acute distress. HEAD: Normocephalic, atraumatic. NECK: Supple. No adenopathy, no masses. RESPIRATORY: Airway patent, respirations mildly labored with exertion. Clear to auscultation bilaterally, no rales, rhonchi, wheezing. CARDIOVASCULAR: Regular rate and rhythm without murmurs, rubs, or gallops. Peripheral pulses 2+ and equal bilaterally. ABDOMINAL: Soft, nontender, nondistended, no hepatosplenomegaly. Normoactive BS. MUSCULOSKELETAL: Moves all extremities. Strength/ROM intact without gross deformities. SKIN: Warm, dry, normal color. No rashes. NEURO: A&O X3. Speech clear. Cranial nerves II-XII grossly intact. No ataxic movements. PSYCHIATRIC: Appropriate mood and affect. Normal interaction. <Dorota Carvalho APRN - Last Filed: 07/31/24 21:40> Course Vital Signs Vital signs: Vital Signs Temperature 36.5 C 07/31/24 12:12 Pulse Rate 64 07/31/24 12:12 Respiratory Rate 23 H 07/31/24 12:12 Blood Pressure 156/80 H 07/31/24 12:12 Pulse Oximetry 94 07/31/24 12:12 Oxygen Delivery Room Air 07/31/24 12:12 Temperature 36.6 C 07/31/24 14:09 Pulse Rate 57 L 07/31/24 20:45 Respiratory Rate 23 H 07/31/24 20:45 Blood Pressure 172/76 H 07/31/24 18:39 Pulse Oximetry 97 07/31/24 20:45 Oxygen Delivery Room Air 07/31/24 15:43 <Roni Dacosta PA-C - Last Filed: 07/31/24 14:37> Vital Signs Temperature 36.5 C 07/31/24 12:12 Pulse Rate 64 07/31/24 12:12 Respiratory Rate 23 H 07/31/24 12:12 Blood Pressure 156/80 H 07/31/24 12:12 Pulse Oximetry 94 07/31/24 12:12 Oxygen Delivery Room Air 07/31/24 12:12 Temperature 36.6 C 07/31/24 14:09 Pulse Rate 57 L 07/31/24 20:45 Respiratory Rate 23 H 07/31/24 20:45 Blood Pressure 172/76 H 07/31/24 18:39 Pulse Oximetry 97 07/31/24 20:45 Oxygen Delivery Room Air 07/31/24 15:43 <Dorota Carvalho APRN - Last Filed: 07/31/24 21:40> MDM - SOB/Dyspnea MDM Narrative Medical decision making narrative: This is a 20-year-old female who presents to the ED for chief complaint of dyspnea on exertion and generalized weakness for the past 2-3 days. Patient reports history of CHF and does endorse bilateral lower extremity swelling. States she is taking her 40 mg of Lasix daily and that this prescription has not changed. Endorses a central chest pressure sensation but no chest pain. States that she had a near syncopal episode while making breakfast this morning and had to lower herself to the chair. Denies fevers, chills, body aches, cough, palpitations, numbness, weakness. Labs Ordered: UA, CBC, CMP, BMP, and INR, PTT Imaging Ordered: Chest x-ray Medications Ordered: Lasix 40 mg IV push Results: Pt's chest x-ray indicates Mild interstitial edema versus chronic senescent/interstitial change. Diagnosis: Congestive heart failure, acute exacerbation Risks: Emergency Heart Failure Mortality Risk Grade (EHMRG) from [email or web address] on 07/31/2024 All calculations should be rechecked by clinician prior to use RESULT SUMMARY: -69.4 points EHMRG Score 0.5 % 7-day mortality rate (risk group: 1) INPUTS: Age ?> 84 years Transported by EMS ?> 0 = No Systolic blood pressure ?> 171 mmHg Heart rate ?> 60 beats/min Oxygen saturation ?> 94 % Creatinine ?> 0.93 mg/dL Potassium ?> 0 = 4.0 to 4.5 mmol/L Troponin >ULN ?> 0 = No Active cancer ?> 0 = No Metolazone use at home ?> 0 = No Consults: None necessary Patient Education/Shared MDM: Results of bloodwork and chest x-ray shared with patient. She endorses significant improvement following medication administration stating, I'm not short of breath anymore! RN helped pt ambulate around department and she did so without increased SOB. She will not be discharged home with any new prescriptions. Strict return precautions provided. Patient verbalized understanding is in agreement with plan. Vital signs stable at time of discharge. All questions answered. <Dorota Carvalho APRN - Last Filed: 07/31/24 21:40> Differential Diagnosis Differential diagnosis: Likely acute exacerbation of chronic obstructive airways disease, congestive heart failure, community acquired pneumonia and asthma with exacerbation <Dorota Carvalho APRN - Last Filed: 07/31/24 21:40> Lab Data Attestation: I reviewed the patient's lab results. <Dorota Carvalho APRN - Last Filed: 07/31/24 21:40> Result diagrams: 07/31/24 15:47 07/31/24 15:47 <Roni Dacosta PA-C - Last Filed: 07/31/24 14:37> Labs: Lab Results 07/31/24 07/31/24 07/31/24 Range/Units 15:47 17:07 19:04 WBC 7.6 (4.5-10.0) K/mm3 RBC 4.25 (4.2-5.4) M/mm3 Hgb 13.1 (12.0-15.0) g/dL Hct 40.7 (37.0-47.0) % MCV 95.8 (80-100) fl MCH 30.8 (26-34) pg MCHC 32.2 (32-36) g/dl RDW 14.8 H (11.5-14.5) % Plt Count 244 (150-375) k/mm3 MPV 9.8 (7.4-10.4) fl Immature Gran % (Auto) 0.3 (0-0.5) % Neut % (Auto) 78.6 H (45.5-73.1) % Lymph % (Auto) 7.5 L (18.3-44.2) % [place] % (Auto) 9.9 H (2.6-8.5) % Eos % (Auto) 3.2 (0-4.4) % Baso % (Auto) 0.5 (0.2-1.2) % Lymph # (Auto) 0.57 L (0.9-3.2) K/mm3 [place] # (Auto) 0.8 H (0.1-0.6) K/mm3 Eos # (Auto) 0.2 (0-0.3) K/mm3 Baso # (Auto) 0.0 (0.0-0.1) K/mm3 Abs Immat Gran (auto) 0.02 (0.00-0.031) K/mm3 Absolute Neuts (auto) 6.0 (1.3-6.7) K/mm3 Absolute Nucleated RBC 0.000 (0.0-0.012) K/mm3 Nucleated RBC % 0.0 (0.0-0.2) % PT 13.1 (11.1-14.7) Seconds INR 0.9 APTT 25.9 (22.3-36.8) Seconds Sodium 140 (137-145) mmol/L Potassium 4.2 (3.4-5.0) mmol/L Chloride 105 (98-107) mmol/L Carbon Dioxide 29 (22-30) mmol/L Anion Gap 6 (4-12) mmol/L BUN 16 (7-17) mg/dL Creatinine 0.93 (0.7-1.0) mg/dL Estim Creat Clear Calc 43 ml/min Estimated GFR 58 L (59 - ) Glucose 93 (65-110) mg/dL Calcium 9.0 (8.4-10.2) mg/dL Magnesium 2.0 (1.6-2.3) mg/dL Total Bilirubin 0.8 (0.2-1.3) mg/dL AST 28 (14-36) U/L ALT 16 (6-35) U/L Alkaline Phosphatase 187 H (38-126) U/L Troponin I 0.014 0.016 (0.000-0.034) ng/mL NT-Pro-B Natriuret Pep 4050 H (19.9-100) pg/mL Total Protein 6.0 L (6.3-8.2) g/dL Albumin 3.5 (3.5-5.1) g/dL Urine Color Yellow (Yellow) Urine Appearance Clear (Clear) Urine pH 6.5 (5.0-9.0) Ur Specific [place] 1.009 (1.001-1.035) Urine Protein Negative (Negative) mg/dL Urine Glucose (UA) Negative (Negative) mg/dL Urine Ketones Negative (Negative) mg/dL Ur Blood (Man) Negative (Negative) Urine Nitrate Negative (Negative) Urine Bilirubin Negative (Negative) Urine Urobilinogen 0.2 (<2.0) mg/dL Leukocyte Esterase Rfl Negative (Negative) REX/UL <Roni Dacosta PA-C - Last Filed: 07/31/24 14:37> Lab Results 07/31/24 07/31/24 07/31/24 Range/Units 15:47 17:07 19:04 WBC 7.6 (4.5-10.0) K/mm3 RBC 4.25 (4.2-5.4) M/mm3 Hgb 13.1 (12.0-15.0) g/dL Hct 40.7 (37.0-47.0) % MCV 95.8 (80-100) fl MCH 30.8 (26-34) pg MCHC 32.2 (32-36) g/dl RDW 14.8 H (11.5-14.5) % Plt Count 244 (150-375) k/mm3 MPV 9.8 (7.4-10.4) fl Immature Gran % (Auto) 0.3 (0-0.5) % Neut % (Auto) 78.6 H (45.5-73.1) % Lymph % (Auto) 7.5 L (18.3-44.2) % [place] % (Auto) 9.9 H (2.6-8.5) % Eos % (Auto) 3.2 (0-4.4) % Baso % (Auto) 0.5 (0.2-1.2) % Lymph # (Auto) 0.57 L (0.9-3.2) K/mm3 [place] # (Auto) 0.8 H (0.1-0.6) K/mm3 Eos # (Auto) 0.2 (0-0.3) K/mm3 Baso # (Auto) 0.0 (0.0-0.1) K/mm3 Abs Immat Gran (auto) 0.02 (0.00-0.031) K/mm3 Absolute Neuts (auto) 6.0 (1.3-6.7) K/mm3 Absolute Nucleated RBC 0.000 (0.0-0.012) K/mm3 Nucleated RBC % 0.0 (0.0-0.2) % PT 13.1 (11.1-14.7) Seconds INR 0.9 APTT 25.9 (22.3-36.8) Seconds Sodium 140 (137-145) mmol/L Potassium 4.2 (3.4-5.0) mmol/L Chloride 105 (98-107) mmol/L Carbon Dioxide 29 (22-30) mmol/L Anion Gap 6 (4-12) mmol/L BUN 16 (7-17) mg/dL Creatinine 0.93 (0.7-1.0) mg/dL Estim Creat Clear Calc 43 ml/min Estimated GFR 58 L (59 - ) Glucose 93 (65-110) mg/dL Calcium 9.0 (8.4-10.2) mg/dL Magnesium 2.0 (1.6-2.3) mg/dL Total Bilirubin 0.8 (0.2-1.3) mg/dL AST 28 (14-36) U/L ALT 16 (6-35) U/L Alkaline Phosphatase 187 H (38-126) U/L Troponin I 0.014 0.016 (0.000-0.034) ng/mL NT-Pro-B Natriuret Pep 4050 H (19.9-100) pg/mL Total Protein 6.0 L (6.3-8.2) g/dL Albumin 3.5 (3.5-5.1) g/dL Urine Color Yellow (Yellow) Urine Appearance Clear (Clear) Urine pH 6.5 (5.0-9.0) Ur Specific [place] 1.009 (1.001-1.035) Urine Protein Negative (Negative) mg/dL Urine Glucose (UA) Negative (Negative) mg/dL Urine Ketones Negative (Negative) mg/dL Ur Blood (Man) Negative (Negative) Urine Nitrate Negative (Negative) Urine Bilirubin Negative (Negative) Urine Urobilinogen 0.2 (<2.0) mg/dL Leukocyte Esterase Rfl Negative (Negative) REX/UL <Dorota Carvalho APRN - Last Filed: 07/31/24 21:40> Imaging Data Attestation: I personally reviewed and interpreted this imaging study as follows: < Dorota Carvalho APRN - Last Filed: 07/31/24 21:40> Radiologist's impression: Impressions Chest X-Ray 07/31/24 15:09 IMPRESSION: Mild interstitial edema versus chronic senescent/interstitial change. <Dorota Carvalho APRN - Last Filed: 07/31/24 21:40> Discharge Plan Discharge Clinical Impression: Congestive heart failure, Dyspnea due to congestive heart failure <Roni Dacosta PA-C - Last Filed: 07/31/24 14:37> Patient Disposition: Home, Self-Care <Roni Dacosta PA-C - Last Filed: 07/31/24 14:37> Condition: Stable <Roni Dacosta PA-C - Last Filed: 07/31/24 14:37> Instructions: Antibiotic Form, Heart Failure (ED) <Roni Dacosta PA-C - Last Filed: 07/31/24 14:37> Additional Instructions: Please return to the ER with an worsening symptoms. Follow-up with primary care provider in the next 2-3 days. Take all regularly scheduled medications as prescribed. <Roni Dacosta PA-C - Last Filed: 07/31/24 14:37> Patient Language: Afghan <Roni Dacosta PA-C - Last Filed: 07/31/24 14:37> Prescriptions: No Action vilazodone 20 mg Tablet 20 mg PO DAILY Rx Instructions: must administer with a meal/food furosemide 40 mg Tablet 40 mg PO DAILY Qty: 90 0RF diphenoxylate-atropine [Lomotil] 2.5-0.025 mg tablet 1 tablet PO QID PRN (Reason: diarrhea) Qty: 20 1RF potassium chloride 20 mEq tablet extended release 40 meq PO DAILY Qty: 180 1RF ursodiol 500 mg tablet 500 mg PO BID Qty: 180 2RF levothyroxine 175 mcg tablet 175 mcg PO DAILY Qty: 90 2RF albuterol sulfate 90 mcg/actuation HFA aerosol inhaler 2 puff inhalation Q4-6H PRN (Reason: shortness of breath or wheezing) Qty: 8.5 3RF metoprolol succinate 50 mg tablet extended release 24 hr 50 mg PO BID Qty: 180 2RF trazodone 100 mg tablet 100 mg PO QHS Qty: 90 2RF <Roni Dacosta PA-C - Last Filed: 07/31/24 14:37> Follow-up/Referrals: Andrei Regan APRN [Primary Care Provider] - <Roni Dacosta PA-C - Last Filed: 07/31/24 14:37>
[2024-07-31 16:04] LABS: Basophils Percent Auto 0.5 % (0.2-1.2); Eosinophils Absolute Auto 0.2 K/mm3 (0-0.3); Eosinophils Percent Auto 3.2 % (0-4.4); Hematocrit 40.7 % (37.0-47.0); Hemoglobin 13.1 g/dL (12.0-15.0); Immature Granulocyte Absolute 0.02 K/mm3 (0.00-0.031); Immature Granulocyte Percent A 0.3 % (0-0.5); Lymphocytes Absolute Auto 0.57 K/mm3 (0.9-3.2); Lymphocytes Percent Auto 7.5 % (18.3-44.2); Mean Corpuscular HGB Conc 32.2 g/dl (32-36); Mean Corpuscular Hemoglobin 30.8 pg (26-34); Mean Corpuscular Volume 95.8 fl (80-100); Mean Platelet Volume 9.8 fl (7.4-10.4); Monocytes Absolute Auto 0.8 K/mm3 (0.1-0.6); Monocytes Percent Auto 9.9 % (2.6-8.5); Neutrophils Percent Auto 78.6 % (45.5-73.1); Platelet Count Result 244 k/mm3 (150-375); Red Blood Count 4.25 M/mm3 (4.2-5.4); Red Cell Distribution Width 14.8 % (11.5-14.5); White Blood Count 7.6 K/mm3 (4.5-10.0)
[2024-07-31 16:08] LABS: Alanine Aminotransferase 16 U/L (6-35); Albumin Level 3.5 g/dL (3.5-5.1); Alkaline Phosphatase 187 U/L (38-126); Anion Gap 6 mmol/L (4-12); Aspartate Amino Transferase 28 U/L (14-36); Bilirubin,Total 0.8 mg/dL (0.2-1.3); Blood Urea Nitrogen 16 mg/dL (7-17); Carbon Dioxide 29 mmol/L (22-30); Chloride 105 mmol/L (98-107); Estimated CRCL calculation 43 ml/min; Estimated Glomerular Filt Rate 58; Glucose 93 mg/dL (65-110); Potassium 4.2 mmol/L (3.4-5.0); Sodium 140 mmol/L (137-145)
[2024-07-31 16:19] LABS: NT Pro B Type Natriuretic Pept 4050 pg/mL (19.9-100); Troponin I 0.014 ng/mL (0.000-0.034)
[2024-07-31 16:25] LABS: INR 0.9; Prothrombin Time 13.1 Seconds (11.1-14.7)
[2024-07-31 16:26] LABS: Partial Thromboplastin Time 25.9 Seconds (22.3-36.8)
[2024-07-31 17:28] LABS: Add Urine Microscopic? NO; Appearance Urine Clear (Clear); Bilirubin Urine Negative (Negative); Blood Urine Negative (Negative); Color Urine Yellow (Yellow); Glucose Urine UA Negative (Negative); Ketones Urine Negative (Negative); Leukocyte Esterase Ur Negative LEU/UL (Negative); Nitrate Urine Negative (Negative); Protein Urine Negative (Negative); Specific Grav Ur 1.009 (1.001-1.035); Urobilinogen Urine 0.2 mg/dL (<2.0); pH Urine 6.5 (5.0-9.0)
--- OUTSIDE RECORDS SUMMARY | 2024-07-31 17:54 | XMS_ITS | Clinical Summary ---
Author Organization [facility] [place] Address [facility] [facility] [place] [address] Care Team Providers Care Signs And Displays Salesperson Name Role Phone Hasmukh Gonzalez MD Primary Care Provider Unavail able Source Comments [facility],non-owned Affiliates and Associated Physician Practices is amultiple site organization consisting of ambulatory clinics and hospital sitesin [place], [place], [place] and [place]. This disclosure is being madepursuant to the Care Everywhere program and may not contain all information available regarding this patient. Last updated 18.[facility] Allergies Active Allergy Reactions Criticality Noted Date [...] this topic Medical Devices Implanted Type Area Oil Field Laborer Device Identifier Shelf Expiration Date Model / Serial / Lot Wire K .035 X 5.5in Implanted:Qty: 2 on 09/06/2017 by Venice Dueñas MD at [facility] Left: Finger [employer] 1346-002-0 00 / / Description:left index finge r Care Teams Signs And Displays Salesperson Relationship Specialty Start Date End Date Hasmukh Gonzalez MD PCP - General Internal Medicine 08/18/17
--- OUTSIDE RECORDS SUMMARY | 2024-07-31 17:54 | XMS_ITS | Patient Health Summary ---
Author Organization [facility] [employer] [facility] Address [facility] [place] [address] Care Team Providers Care Manager Loan Name Role Phone Hasmukh Gonzalez MD Primary Care Provider Unavail able Note from [facility],non-owned Affiliates and Associated Physician Practices is amultiple site organization consisting of ambulatory clinics and hospital sitesin [place], [place], [place] and [place]. This disclosure is being madepursuant to the Care Everywhere program and may not contain all information available regarding this patient. Last updated 18.[facility] [employer] [facility] Allergies * Codeine(Nausea and/or Vomiting,Headache) * Contrast-Iodinated [...] AM CDT Medical Devices Implanted Type Area Waste Paper [place] Operator Device Identifier Shelf Expiration Date Model / Serial / Lot Wire K .035 X 5.5in Implanted:Qty: 2 on 09/06/2017 by Venice Dueñas MD at [facility] Left: Finger [employer] 1346-002-0 00 / / Description:left index finge [...] S. Porfirio Dueñas MD [facility]STIC [facility] Care Teams Manager Loan Relationship Specialty Start Date End Date Hasmukh Gonzalez MD PCP - General Internal Medicine 08/18/17
--- OUTSIDE RECORDS SUMMARY | 2024-07-31 17:54 | XMS_ITS | Referral Summary ---
Author Organization [facility] Address [address] [place] [address] Care Team Providers Care Audio Visual Engineer Name Role Phone Hasmukh Gonzalez MD Primary Care Provider Unavail able Source Comments [facility],non-owned Affiliates and Associated Physician Practices is amultiple site organization consisting of ambulatory clinics and hospital sitesin [place], [place], [place] and [place]. This disclosure is being madepursuant to the Care Everywhere program and may not contain all information available regarding this patient. Last updated 18.[facility] Allergies Active Allergy Reactions Criticality Noted Date [...] on file Medical Devices Implanted Type Area Remote Encoding Center Manager Device Identifier Shelf Expiration Date Model / Serial / Lot Wire K .035 X 5.5in Implanted:Qty: 2 on 09/06/2017 by Venice Dueñas MD at [facility] Left: Finger [employer] 1346-002-0 00 / / Description:left index finge r Care Teams Audio Visual Engineer Relationship Specialty Start Date End Date Hasmukh Gonzalez MD PCP - General Internal Medicine 08/18/17
--- OUTSIDE RECORDS SUMMARY | 2024-07-31 17:54 | XMS_ITS | CONTINUITY OF CARE DOCUMENT ---
Author Name alicja jeremyyesika Address Unknown Organization [facility] Address [address] [place] [address] Phone [phone] Care Team Providers Care Data Communications Analyst Name Role Phone Jl Corey MD Unavailable [phone] MARIYA DO, PAYAL Unavailable [phone] MARIYA DO, PAYAL Unavailable [phone] PROBLEMS Condition Status Date Provider Notes Microalbuminuria [...] not want wgoby Elevated LFT's completed - lJ Corey MD Hypoalbuminemia completed - Jl Corey [...] In-person encounter Office Visit Jl Corey MD [facility] Atrial fibrillation, chronic;tsh on rxDiastolic CHFOverweightPrimary biliary cirrhosisScreening - In-person encounter Office Visit Jl Corey MD [facility] Atrial fibrillation, chronic;tsh on rxHypertension;neg duplexElevated LFT'sHypoalbuminemiacovid and had vaccineFAMILY HISTORY OF HEART DISEASEHyperlipidemia;with high crp and lpa 117HypothyroidismScreening - In-person encounter Office Visit Jl Corey MD [facility] Primary biliary cirrhosis - In-person encounter Office Visit Jl Corey MD [facility] LBBBAtrial fibrillation, chronic;tsh on rxHypertension;neg duplexDiastolic [...] Gordillo oxygen saturation, oximetry 94 % Sara [place] respiratory rate E&M 94 /min Sara [place] pulse rate 72 /min Sara [place] weight E&M 189 [lb_av] Sara [place] height E&M 65 [in_i] Sara [place] blood pressure, cuff size regular Cari baca [...] iron binding capacity, unsaturated 250 ug/dL [employer]Log[employer] [phone]/10/3 1 iron binding capacity, total 283 ug/dL [employer] 220-588 3143/10/3 1 microalbumin/creatin ine ratio, urine 49 MG/G [...] 0-149 1 cholesterol, serum 175 mg/dL [employer] 780-029 7512/10/3 1 hemoglobin A1C, blood, as % of [...] Estab. 1 platelet count 332 X10E3/UL [employer] [phone]/10/3 1 red blood cell distribution width 13.4 [...] 3.5-5.2 2 sodium, serum 140 mmol/L [employer] 607-284 2873/10/2 2 urea nitrogen/creatinine ratio, serum 13 LinkLogic [...] pen injector subcutaneously once a week - [facility] Specialist losartan 25 mg tablet [...] levothyroxine 200 mcg tablet active Radha Owenmiglia SHOT COAT TENDER Klor-Con M20 20 mEq tablet,ER particles/twan ls completed - Radhabrittney Owenmiglgiovanni BURKSP furosemide 40 mg tablet completed - Radha Owenmiglia MELISSA albuterol sulfate 90 mcg/actuation HFA aerosol inhaler active Radha Owenmiglia SHOT COAT TENDER metoprolol succinate 50 mg tablet extended release [...] history of marijuana use no Radha Owenmiglia SHOT COAT TENDER drug use no Radha Ventimig geraldine SHOT COAT TENDER alcohol use no Radha Ventimig geraldine SHOT COAT TENDER smoking status Never smoker Radha Gutierrez iglgiovanni BURKSP FAMILY HISTORY Family Member Condition Full Brother CAD male <55 Father Stroke/CVA INSURANCE PROVIDERS Payer name Policy type / Coverage type [place] red [place] party ID AETNA MEDICARE JUDIE PPO Medicare [id number] 500 ADVANCE DIRECTIVES Name Date DISCUSSED - NO DECISION MADE TREATMENT PLAN Date Name Performer Cardiology Jl Corey MD Cardiology Jl Corey MD Cardiology: M ILLD NE AND SEVERE TR ADN MILD AND MILD [...] 57 Jl Corey MD Cardiology: M ILLD NE AND SEVERE TR ADN MILD AND MILD [...] Corey MD Cardiology Jl Corey MD :MILLD NE AND SEVERE TR ADN MILD AND MILD MR Jl Corey MD :58 Jl Corey MD :3040 EF 55 Jl Corey MD :57 Jl Corey MD Cardiology:with asso ciated SOB with minimal exertion. p lanned for stress test to r/o ischemia H er updated medication list for this problem includes: Metoprolol Succinate 50 Mg Tablet Extended Release 24 Hr (Met[facility]rolol succinate) [facility] Cardiology:egfr of 5 3 on last labs W ill do renal duplex [facility] Cardiology:LFTs only mildly elevated on last labs [facility] Cardiology:BP above goal will add losartan H er updated medication list for this problem includes: Losartan 25 Mg Tablet (Losartan) ..... Take 1 tablet by mouth once daily Metoprolol Succinate 50 Mg Tablet Extended Release 24 Hr (Metoprolol succinate) [facility] Cardiology:chronic r ate controlled p atient had nosebleeds with xarelto s he refuses all AC W e did discuss risk of stoke and she verbalized understanding H er updated medication list for this problem includes: Metoprolol Succinate 50 Mg Tablet Extended Release 24 Hr (Metoprolol succinate) [facility] Cardiology: 3 040, ef 67 S he has continued SOB with minimal activity l ast echo 07/2022 at [facility] W ill upadat echo [facility] :41 Jl Corey MD :3040, ef 65 Jl Corey MD :53 Jl Corey MD Cardiology:weight loss encourage d [facility] Cardiology:controlle d T he following medications were removed from the medication list: Furosemide 40 Mg Tablet (Furosemide) Her updated medication list for this problem includes: Metoprolol Succinate 50 Mg Tablet Extended Release 24 Hr (Metoprolol succinate) [facility] Cardiology:patient h as SOB with minimal [...] Release 24 Hr (Metoprolol succinate) Radha Murillo SHOT COAT TENDER Cardiology:rate cont rolled on metoprolol c oncern contibuting to her SOB W ill add xarelto for AC p gwyn tele monitor g et recent labs and echo from [facility] post testing H er updated medication list for this problem includes: Metoprolol Succinate 50 Mg Tablet Extended Release 24 Hr (Metoprolol succinate) Radha Murillo [facility] Date Name Complete Echo Stress Regadenoson CT, [...]
[2024-07-31] MEDS: FUROSEMIDE INJ 40 MG/4 ML VIAL IV PUSH (18:34)
--- NOTE | 2024-07-31 18:46 | ECG_ITS ---
Test Date: 2024-07-31 19:03:39 Measurements Intervals [place] Rate: 61 P: 0 CO: 0 QRS: -42 QRSD: 114 T: 73 QT: 433 QTc: 438 Interpretive Statements ATRIAL FIBRILLATION LEFT AXIS DEVIATION PATTERN CONSISTENT WITH PULMONARY DISEASE LEFT VENTRICULAR HYPERTROPHY WITH ST-T CHANGE BASELINE ARTIFACT- I, I, II, III, AVR, AVL, AVF, V4-V6 ABNORMAL ECG Compared to ECG 07/31/2024 15:53:01 NO SIGNIFICANT CHANGE Electronically Signed On 08-01-2024 06:54:17 ENERGY SCHEDULER by Donte Eqsueda D.O.
[2024-07-31 19:33] LABS: Troponin I 0.016 ng/mL (0.000-0.034)
== END 2024-07-31 22:11 | disposition home or self-care (01) ==
PROVIDERS: Physician Assistant; Emergency Provider Registered Nurse; PCP Nurse Practitioner
DX: R06.00 Dyspnea, unspecified (principal); I50.9 Heart failure, unspecified; E55.9 Vitamin D deficiency, unspecified; H81.09 Meniere's disease, unspecified ear; N18.9 Chronic kidney disease, unspecified; E78.5 Hyperlipidemia, unspecified; E03.9 Hypothyroidism, unspecified; F41.8 Other specified anxiety disorders; Z87.891 Personal history of nicotine dependence; I13.0 Hypertensive heart and chronic kidney disease with heart failure and stage 1 through stage 4 chronic kidney disease, or unspecified chronic kidney disease
CPT/HCPCS: 36415; 71046; 80053; 81003; 83735; 83880; 84484; 85025; 85610; 85730; 93005; 96374; 99284; J1940

== ENCOUNTER 2024-09-30 08:20 | Emergency (ER) | payer MEDICARE, SELFPAY ==
--- OUTSIDE RECORDS SUMMARY | 2024-09-30 08:22 | XMS_ITS | CONTINUITY OF CARE DOCUMENT ---
Author Name alicja jeremyyesika Address Unknown Organization [facility] Address [address] [place] [address] Phone [phone] Care Team Providers Care Heating And Ventilating Drafter Name Role Phone Jl Corey MD Unavailable MARIYA DO, PAYAL Unavailable [phone] MARIYA DO, PAYAL Unavailable [phone] PROBLEMS Condition Status Date Provider Notes Microalbuminuria [...] encounter Office Visit Jl Corey MD [place] [facility] Atrial fibrillation, chronic;tsh on rxDiastolic CHFOverweightPrimary biliary cirrhosisScreening - In-person encounter Office Visit Jl Corey MD [place] [facility] Atrial fibrillation, chronic;tsh on rxHypertension;neg duplexElevated LFT'sHypoalbuminemiacovid and had vaccineFAMILY HISTORY OF HEART DISEASEHyperlipidemia;with high crp and lpa 117HypothyroidismScreening - In-person encounter Office Visit Jl Corey MD [facility] Primary biliary cirrhosis - In-person encounter Office Visit Jl Corey MD [place] [facility] LBBBAtrial fibrillation, chronic;tsh on rxHypertension;neg duplexDiastolic [...] Charlette Sparrow height E&M 65 [in_i] [facility] Body [facility] Index (Ratio) 31.45 kg/m2 Jacqui Corey MD blood pressure, diastolic 112 mm[Hg] Cari Gordillo blood pressure, systolic 187 mm[Hg] Sharla Gordillo oxygen saturation, oximetry 94 % Sara [place] respiratory rate E&M 94 /min Sara [place] pulse rate 72 /min Sara [place] weight E&M 189 [lb_av] Sara [place] height E&M 65 [in_i] Sara [place] blood pressure, cuff size regular Cari baca [...] iron binding capacity, unsaturated 250 ug/dL [employer] 934-235 4132/10/3 1 iron binding capacity, total 283 ug/dL [employer] 635-599 6787/10/3 1 microalbumin/creatin ine ratio, urine 49 MG/G [...] 0-149 1 cholesterol, serum 175 mg/dL [employer] 095-023 4715/10/3 1 hemoglobin A1C, blood, as % of [...] Estab. 1 platelet count 332 X10E3/UL [employer] 070-525 9200/10/3 1 red blood cell distribution width 13.4 [...] 3.5-5.2 2 sodium, serum 140 mmol/L [employer] 058-796 5932/10/2 2 urea nitrogen/creatinine ratio, serum 13 LinkLogic [...] subcutaneously once a week - [facility] Specialist losartan 25 mg tablet [...] levothyroxine 200 mcg tablet active Radha Owenmiglia SPINDLE PLUMBER Klor-Con M20 20 mEq tablet,ER particles/twan ls completed - Radhabrittney Owenmiglgiovanni BURKSP furosemide 40 mg tablet completed - Radha Owenmiglia MELISSA albuterol sulfate 90 mcg/actuation HFA aerosol inhaler active Radha Owenmiglia SPINDLE PLUMBER metoprolol succinate 50 mg tablet extended release [...] history of marijuana use no Radha Owenmiglia SPINDLE PLUMBER drug use no Radha Ventimig geraldine SPINDLE PLUMBER alcohol use no Radha Ventimig geraldine SPINDLE PLUMBER smoking status Never smoker Radha Gutierrez iglgiovanni BURKSP FAMILY HISTORY Family Member Condition Full Brother CAD male <55 Father Stroke/CVA INSURANCE PROVIDERS Payer name Policy type / Coverage type [place] red republican ID AETNA MEDICARE JUDIE PPO Medicare [id number] 500 ADVANCE DIRECTIVES Name Date DISCUSSED - NO DECISION MADE TREATMENT PLAN Date Name Performer Cardiology Jl Corey MD Cardiology Jl Corey MD Cardiology: M ILLD IA AND SEVERE TR ADN MILD AND MILD [...] 57 Jl Corey MD Cardiology: M ILLD IA AND SEVERE TR ADN MILD AND MILD [...] Corey MD Cardiology Jl Corey MD :MILLD IA AND SEVERE TR ADN MILD AND MILD MR Jl Corey MD :58 Jl Corey MD :3040 EF 55 Jl Corey MD :57 Jl Corey MD Cardiology:with asso ciated SOB with minimal exertion. p lanned for stress test to r/o ischemia H er updated medication list for this problem includes: Metoprolol Succinate 50 Mg Tablet Extended Release 24 Hr (Metoprolol succinate) [facility] Cardiology:egfr of 5 3 on last labs W ill do renal duplex [facility] Cardiology:LFTs only mildly elevated on last labs [facility] Cardiology:BP above goal will add losartan H er updated medication list for this problem includes: Losartan 25 Mg Tablet (Losartan) ..... Take 1 tablet by mouth once daily Metoprolol Succinate 50 Mg Tablet Extended Release 24 Hr (Metoprolol succinate) [facility] Cardiology:chronic r ate controlled p atient had nosebleeds with xarelto s he refuses all AC W e did discuss risk of stoke and she verbalized understanding H er updated medication list for this problem includes: Metoprolol Succinate 50 Mg Tablet Extended Release 24 Hr (Metoprolol succinate) [facility] Cardiology: 3 040, ef 65 S he has continued SOB with minimal activity l ast echo 07/2022 at OSH W ill upadat echo [facility] :41 Jl Corey MD :3040, ef 65 Jl Corey MD :53 Jl Corey MD Cardiology:weight loss encourage d [facility] Cardiology:controlle d T he following medications were removed from the medication list: Furosemide 40 Mg Tablet (Furosemide) Her updated medication list for this problem includes: Metoprolol Succinate 50 Mg Tablet Extended Release 24 Hr (Metoprolol succinate) [facility] Cardiology:patient h as SOB with minimal [...] Release 24 Hr (Metoprolol succinate) Radha Murillo SPINDLE PLUMBER Cardiology:rate cont rolled on metoprolol c oncern contibuting to her SOB W ill add xarelto for AC p gwyn tele monitor g et recent labs and echo from [facility] post testing H er updated medication list for this problem includes: Metoprolol Succinate 50 Mg Tablet Extended Release 24 Hr (Metoprolol succinate) Radha Murillo [facility] Date Name Complete Echo Stress Regadenoson CT, [...]
--- OUTSIDE RECORDS SUMMARY | 2024-09-30 08:22 | XMS_ITS | Patient Health Record ---
Author Organization [facility] [place] ([address]) Address [address] [place] [address] Care Team Providers Care Geophysical Computer Name Role Phone Kirby Rodarte Primary Care Provider UnavailSophie Cool Unavailable [phone] ZZ-Migration, Provider Unavailable Unavailab le Allergies Allergen [...] Status Risk Notes Problem Chronic allergic conjunctivitis (68327571) Other chronic allergic conjunctivitis (H10.45) Active confirmed Problem Allergic rhinitis caused by pollen (disorder) (29802368) Allergic rhinitis due to pollen (J30.1) Active confirmed Problem Allergic rhinitis (07261365) Other allergic rhinitis (J30.89) Active confirmed Problem 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 confirmed Problem Allergic rhinitis caused by animal hair and dander (604082450932549) Allergic rhinitis due to animal (cat) (dog) hair and dander (J30.81) Active confirmed Encounters Encounter Location Date Provider Diagnosis DYLON Martino [address] [place] [id number] 11/19/2023 Provider Lindsay Allergic rhinitis due to [...] Date [employer] [address] [place] [address] [id number] Jenniffer Cm Self - patient is the insured 4 Medical (General) History Medical History History ICD Code hypothyroidism primary biliary cirrhosis osteoarthritis heart murmur Surgical History Surgery Date(Month/Year) tubal ligation 1972 hysterectomy 1973 cholecystectomy 1986 knee replacements 2222-3840 Hospitalization History Reason Date(Month/Year) pneumonia 07/2022 childbirth 1973 childbirth 1967 childbirth 1964 childbirth 1962
--- OUTSIDE RECORDS SUMMARY | 2024-09-30 08:23 | XMS_ITS ---
Author Organization [facility] [employer] [place] ([address]) Address [address] [place] [address] Care Team Providers Care Loan Collector Name Role Phone Kirby Rodarte Primary Care Provider UnavailSophie Cool Unavailable [phone] ZZ-Migration, Provider Unavailable Unavailab le Allergies Allergen (clinical drug ingredient) Drug/Non Drug Allergy documented on EMR Reaction Allergy Type Onset Date Status CONTRAST DYE (uncoded) other reaction Allergy Active codeine Codeine stomach upset Drug Allergy Act francesca REASON FOR VISIT [facility] Conversion Encounter Medications Medication SIG (Take, [...] Active Encounters Encounter Location Date Provider Diagnosis [facility] [place] [address] 11/19/2023 Provider ZEHRA-Aury Allergic rhinitis due to pollen J30.1 Assessments [...] Notes * Bart ACKERMANOB:1940 (84 yo F)Acc No.[id number]:11/19/2023 Patient: José Jenniffer OLVEAR Provider: David Jeffers :1940 A ge:83 Y S ex:Female Date:11/19/2023 Address:[address] [place] [address], [address], [facility] Pcp:Kirby Rodarte Subjective: * Chief Complaints: * 1 . [facility] Conversion Encounter. * Medical History: * [...] Electronic signature of Juan Luis SHAHID-Migration on 09/30/2024 at 08:22 AM CDT Sign off status: Pending * Provider: David coyne Migration Date: 0 11/19/2023 Generated for Giovanni crobin/Latricia/Praful on: 0 09/30/2024 08:22 AM CDT
--- OUTSIDE RECORDS SUMMARY | 2024-09-30 08:23 | XMS_ITS | Patient Health Record ---
Author Organization [facility] [place] Address [address] [place] [address] Care Team Providers Care Legal Counsel Name Role Phone Kartik Hines DO Primary Care Provider UnavailAgnieszka Hankins Unavailable [phone] Anoop Robles Unavailable [phone] Migration, Provider Unavailable Unavailable Allergies Allergen (clinical drug ingredient) Drug/Non Drug Allergy documented on EMR Reaction Allergy Type Onset Date Status Iodinated contrast media (substance) IODINATED CONTRAST MEDIA (uncoded) Unknown Allergy 07/07/2023 Active codeine Codeine Unknown Drug Allergy 07/07/2023 Active Reason For Referral No Information Medications Medication SIG (Take, Route, Frequency, Duration) Notes Start Date End Date Status Furosemide 40 MG Oral 07/07/2023 Ac tive Vilazodone HCl 40 MG 1 tablet with food Oral Once a day for 90 days Active Levothyroxine Sodium 200 MCG Oral 07/07/2023 Active traZODone HCl 100 MG Oral 07/07/2023 Active Klor-Con M20 20 MEQ Oral 07/07/2023 Active Metoprolol Succinate ER 50 MG Oral 07/07/2023 Active Vilazodone HCl 40 MG 1 tablet with food Oral Once a day for 90 days appointment needed Active Mirtazapine 7.5 MG 1 tablet at bedtime Orally Once a day for 90 days 09/17/2024 Active Ursodiol 500 mg Oral 07/07/2023 Act francesca Olopatadine HCl 0.1 % Ophthalmic 07/07/2023 Active Immunizations Vaccine Route Administration Date Status Comme [...] Status Risk Notes Problem Generalized anxiety disorder (05577404) Generalized anxiety disorder (F41.1) 07/07/19 Active confirmed Problem Primary insomnia (0729324) Primary insomnia (F51.01) 07/07/19 Active confirmed Problem Amnesia (25728849) Other amnesia (R41.3) 07/07/19 Active confirmed Problem Screening for cardiovascular system disease (595557082) Encounter for screening for cardiovascular disorders (Z13.6) Active confirmed Problem 080492240 MDD (major depressive disorder), recurrent episode, mild (F33.0) Active confirmed Vital Signs Heart Rate 99 /min 09/17/2024 Respiratory Rate 18 /min 02/20/2024 Height-cm 165.10 cm 09/17/2024 Blood pressure diastolic 77 mm Hg 09/17/2024 Weight-kg 79.38 kg 09/17/2024 Height 65.00 in 09/17/2024 Blood pressure systolic 108 mm Hg 09/17/2024 Weight 175 lbs 09/17/2024 BMI 29.12 kg/m2 09/17/2024 Encounters Encounter Location Date Provider Diagnosis [facility] [employer] [facility] [address] [facility] [address] [place] [address] 01/05/2024 Agnieszka Sorenson [facility] [employer] [place] [address] [facility] [address] [place] [address] 01/09/2024 Agnieszka Sorenson MDD (major depressiv e disorder), recurrent episode, mild F33.0 ; Generalized anxiety disorder F41.1 ; Primary insomnia F51.01 and Other amnesia R41.3 [facility] [employer] [facility] [address] [place] [address] 02/20/2024 Agnieszka Sorenson MDD (major depressiv e disorder), recurrent episode, mild F33.0 ; Generalized anxiety disorder F41.1 ; Primary insomnia F51.01 and Other amnesia R41.3 [facility] [employer] [facility] [address] [place] [address] 09/17/2024 Agnieszka Sorenson MDD (major depressiv e disorder), recurrent episode, mild F33.0 ; Generalized anxiety disorder F41.1 ; Primary insomnia F51.01 ; Other amnesia R41.3 and Encounter for screening for cardiovascular disorders Z13.6 [facility] [place] [address] [facility] [address] [place] [address] 10/22/2023 [facility] [address] [facility] [address] [place] [address] 10/23/2023 Provider Migration [address] [facility] [address] [place] [address] 04/10/2024 [facility] [place] [address] [facility] [address] [facility] [address] [place] [address] 08/06/2024 Agnieszka Sorenson Assessments Encounter Date Diagnosis (ICD Code) Assessment [...] depression - labs recently- will 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 Memory impairment - monitor 09/17/2024 MDD (major depressive disorder), recurrent episode, mild (ICD-10 - F33.0) 1. 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 Primary insomnia - sleep hygiene Trazodone 50- 100 mg night PRN PCP prescribes 4. Memory impairment - patient does not want medications monitor 09/17/2024 Generalized anxiety disorder (ICD-10 - F41.1) 1. 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 Primary insomnia - sleep hygiene Trazodone 50- 100 mg night PRN PCP prescribes 4. Memory impairment - patient does not want medications monitor 02/20/2024 Generalized anxiety disorder (ICD-10 - F41.1) 1. 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 Memory impairment - monitor 09/17/2024 Primary insomnia (ICD-10 - F51.01) 1. 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 Primary insomnia - sleep hygiene Trazodone 50- 100 mg night PRN PCP prescribes 4. Memory impairment - patient does not want medications monitor 09/17/2024 Other amnesia (ICD-10 - R41.3) 1. 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 Primary insomnia - sleep hygiene Trazodone 50- 100 mg night PRN PCP prescribes 4. Memory impairment - patient does not want medications monitor 02/20/2024 Other amnesia (ICD-10 - R41.3) 1. 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 Memory impairment - monitor 09/17/2024 Encounter for screening for cardiovascular disorders (ICD-10 - Z13.6) 1. 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 Primary insomnia - sleep hygiene Trazodone 50- 100 mg night PRN PCP prescribes 4. Memory impairment - patient does not want medications monitor 02/20/2024 Other referral to the local chapter or national office of the Alzheimer's Association (9-513-045-098 0; http://www.alz .org), the Alzheimer's Disease Education and Referral Center (ADEAR) ([phone] 0; http://www.halley .nih.gov/Alzhe imers/), 1. 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 AFib Viibyrd 40 mg [...] Memory impairment - monitor Plan Of Treatment Next Appt Details Provider Name:Agnieszka Sorenson , 12/17/2024 01:00:00 PM, [facility] [address] [facility] [address], [place], [address], Insurance Providers Payer Name Payer Address Payer Phone Subscriber Number Group Number Insured Name Patient Relationship to Insured Coverage Start Date Coverage End Date Medicare-I l Medicare [address] [place] [phone] [id number] FINA ACKERMAN Self - patient is the insured Aet [address] [place] [address] [id number] FINA ACKERMAN Self - patient is the insured Medical (General) History Medical History History ICD Code Problems: Acute COVID-19 Generalized anxiety disorder Memory impairment Primary insomnia Recurrent major depression , AFIB BILARY Cirrohosis Surgical History Surgery Date(Month/Year) Removal of gallbladder (42299) Hysterectomy (15523) Cataract surgery (04096) Appendectomy (01033) Other
--- OUTSIDE RECORDS SUMMARY | 2024-09-30 08:23 | XMS_ITS | Continuity of Care Document ---
Author Organization [facility] Address [address] [place] [address] Phone Care Team Providers Care Staffing Coordinator Name Role Phone [facility] Unavailable [...] Diagnoses Date Provider Providers Copied on Encounter [facility], [address], [place], [place], [address], [place] tel:[phone] [facility] No Information Feb- 5201 0 [facility] . [address] [facility], [address], [place], [place], [address], [place]. tel:[phone] Referring Provider: Pamela Valle, [address], [place], [address]. tel:[phone] [place] Provider: Lucita Laura, [address] [place] [address], [address]. tel:[phone] Office/outpat ient Visit, Est [facility], [address], [place], [place], [address], [place] tel:[phone] [facility] No Information Sep- 4-201 [address], [place], [address], [place]. tel:[phone] [facility], [address], [place], [place], [address], [place] tel:[phone] [facility] No Information Apr-2 4-[address], [place], [place], [facility], [place]. tel:[phone] [facility], [address], [place], [place], [address], [place] tel:[phone] [facility] No Information Dec-2 9-200 8 [facility] . [address] [facility], [address], [id number], [place]. tel:[phone] Consulting Provider: Mariah Bolden, [address] [place] [address], [address]. tel:[phone] [facility], [address], [place], [place], [address], [place] tel:[phone] [facility] No Information Aug-0 8-200 8 [facility] . [address] [facility], [address], [place], [place], [address], [place]. tel:[phone] Consulting Provider: Mariah Bolden, [address] [place] [address], [facility]. tel:[phone] [facility], [address], [place], [place], [address], tel:[phone] [facility] No Information Jan-0 8-[address] , [address], [place], [place], [facility], . tel:[phone] [facility], [address], [place], [place], [address], tel:[phone] [facility] No Information 0 2200 8 [facility] . [address] [facility], [address], [place], [place], [address], . tel:[phone] Referring Provider: Pamela Valle, [address], [place], [place], [facility]. tel:[phone] g Provider: Mariah Bolden, [address] [place], [place], [facility]. tel:[phone] [facility], [address] [place] [address] [address], [place], [place], [address], tel:[phone] [facility] No Information 0 [address] , [address], [place], [place], [facility], . tel:[phone] [facility], [address] [place] [address] [address], [place], [place], [address], tel:[phone] [facility] No Information [address] , [address], [place], [place], [facility], . tel:[phone] Family History Family Member Type Diagnosis Age At Onset No Information Payers Payer name Insurance type Covered green party ID Authoriza tion(s) No Information Social [...]
--- OUTSIDE RECORDS SUMMARY | 2024-09-30 08:23 | XMS_ITS | Clinical Summary ---
Author Organization [facility] [employer] Address [facility] [facility] [place] [address] Care Team Providers Care Roll Wrapper Name Role Phone Hasmukh Gonzalez MD Primary Care Provider Unavail able Source Comments [facility] [employer],non-owned Affiliates and Associated Physician Practices is amultiple site organization consisting of ambulatory clinics and hospital sitesin [place], [place], [place]. This disclosure is being madepursuant to the Care Everywhere program and may not contain all information available regarding this patient. Last updated 18.[facility] [employer] Allergies Active Allergy Reactions Criticality Noted Date Comments Codeine Nausea and/or Vomiting,Headache 09/02/2017 Contrast-Iodinated Agents For Ct/Other Anaphylaxis,Rash High 09/02/2017 heart stopped Medications * Be aware that medications may not be up to date on this document. Alwaysverify current medications with the patient. 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 [employer] Gender Identity Not on file Sexual Orientation [...] Last Done Comments BONE DENSITY TESTING 1940 DTAP/TDAP/TD VACCINES (1 - Tdap) 1961 PNEUMOCOCCAL VACCINE 50+ (1 of 1 - PCV) 1992 ZOSTER VACCINE (1 of 2) 1992 Respiratory Syncytial Virus (RSV) Vaccine Pt: or over 60 yrs (1 - 1-dose 75+ series) 2017 COVID-19 VACCINE (1 - 2023-2 5 season) 2024 DEPRESSION SCREENING 06/06/2024 INFLUENZA VACCINE (Season Ended) 2025 HEPATITIS B VACCINE Aged Out No longe r eligible based on patient's age to complete this topic HIB VACCINE Aged Out No longer eligi ble based on patient's age to complete this topic HPV VACCINE Aged Out No longer eligi ble based on patient's age to complete this topic MENINGOCOCCAL (Group B) VACC INE SHARED DECISION-MAKING Aged Out No longer eligibl e based on patient's age to complete this topic MENINGOCOCCAL GROUPS A/C/Y/W VACCINE Aged Out No longer eligible b ased on patient's age to complete this topic Medical Devices Implanted Type Area Application Designer Device Identifier Shelf Expiration Date Model / Serial / Lot Wire K .035 X 5.5in Implanted:Qty: 2 on 09/06/2017 by Venice Dueñas MD at [facility] Left: Finger [employer] [id number] 00 / / Description:left index finge r Insurance MEDICARE [facility] Care Teams Roll Wrapper Relationship Specialty Start Date End Date Hasmukh Gonzalez MD PCP - General Internal Medicine 08/18/17
--- OUTSIDE RECORDS SUMMARY | 2024-09-30 08:23 | XMS_ITS ---
Author Organization [facility] [place] ([address]) Address [address] [place] [address] Care Team Providers Care Wood Milling Machine Operator Name Role Phone Kirby Rodarte Primary Care Provider UnavailSophie Cool Unavailable [phone] Mackenzie Obando Unavailable [phone] Allergies Allergen (clinical drug ingredient) Drug/Non Drug [...] 07/13/2023 Encounters Encounter Location Date Provider Diagnosis [facility] [address] [facility] [address] [place] [address] 07/13/2023 Mackenzie Obando Allergic rhinitis du e [...] Aeroallergen: Yes Epicutaneous: 72 Progress Notes * Wili ACKERMANeDOB:1940 (83 yo F)Acc No.[id number]:07/13/2023 Progress Notes Patient: Jenniffer WARD Provider: Robin Obando MD :1940 A ge:83 Y S ex:Female Date:07/13/2023 Address:[address] [place] [address], [address], [facility] Pcp:Kirby Rodarte Subjective: * Chief [...] t ubal ligation 1972hysterectomy 1974cholecystectomy 1986knee replacements 5923-6612 * Hospitalization/Major Diagno stic Procedure: c hildbirth [...] Codes: 9 5004 PRICK TESTS, Units: 72.00 63616 PT-FOCUSED HLTH RISK [id number] DOC MEDS VERIFIED W/PT OR CGN8569 FLU IMM NO ORD/ADMIN DOC LIZY * [...] Management) * Billing Information: * Visit Code: 59849 Office Visit, New Pt., Level 3. Modifiers: 25 * Procedure Codes: 52105 PRICK TESTS. Units: 72.00. 58534 PT-FOCUSED HLTH RISK ASSMT. G8427 DOC MEDS VERIFIED W/PT OR RE. G8483 FLU IMM NO ORD/ADMIN DOC LIZY. Images * 07/13/2023 skin prick testin g * TIONS COORDINATOR Sign off status: Completed true * Provider: Robin Obando MD Date: 0 07/13/2023 Generated for Giovanni corbin/Latricia/Mckenzieitting on: 0 09/30/2024 08:22 AM CDT History and Physical Notes * HPI (History [...]
--- OUTSIDE RECORDS SUMMARY | 2024-09-30 08:23 | XMS_ITS ---
Author Organization [facility] [place] ([address]) Address [address] [place] [address] Care Team Providers Care River Rat Name Role Phone Kirby Rodarte Primary Care Provider UnavailSophie Cool Unavailable [phone] Mackenzie Obando Unavailable [phone] REASON FOR VISIT ARC follow-up Encounters Encounter Location Date Provider Diagnosis [facility] [address] [place] [address] 08/10/2023 Mackenzie Obando Plan Of Treatment No Information Progress Notes * Bart ACKERMANOB:1940 (84 yo F)Acc No.[id number]:08/10/2023 Progress Notes Patient: Ibeth WARDyce Provider: Robin Obando MD :1940 A ge:83 Y S ex:Female Date:08/10/2023 Address:[address] [facility] Pcp:Kirby Rodarte Subjective: * Chief Complaints: * 1 . ARC follow-up. * Medical History: Objective: * Vitals: Assessment: Plan: * Treatment: * Billing Information: * Visit Code: * Procedure Codes: * Electronic signature of Cony Obando MD on 09/30/2024 at 08:22 AM CDT Sign off status: Pending * Provider: Robin Obando MD Date: 0 08/10/2023 Generated for Giovanni corbin/Latricia/Praful on: 0 09/30/2024 08:22 AM CDT
[2024-09-30 08:32] VITALS: BP 151/106; PULSE 78; RESP 20; TEMP 36.3; O2SAT 97
--- NOTE | 2024-09-30 08:49 | ED.EPISTAXIS ---
HPI - Epistaxis General Chief complaint: Epistaxis Stated complaint: epistaxis Time Seen by Provider: 09/30/24 08:27 History of Present Illness HPI Narrative: 84-year-old female presents emergency department after evaluation for injuring the left internal naris after scratching at this morning. Patient presented the ED with bleeding from both nares. Patient states she does have a septal defect. Related Data Home Medications ?Medication ?Instructions ?Recorded ?Confirmed ?Last Taken ?Type vilazodone 20 mg tablet 20 mg PO DAILY 02/20/23 09/06/24 Unknown History Allergies Allergy/AdvReac Type Severity Reaction Status Date / Time Gadolinium-Containing Allergy Severe Chest Pain Verified 09/06/24 10:32 Contrast Medi adhesive tape Allergy Mild Rash Verified 09/06/24 10:28 ioversol Allergy Unknown Other Verified 09/06/24 10:28 morphine Allergy Unknown Liver Verified 09/06/24 10:28 function tests abnormal acetaminophen AdvReac Severe kidney Verified 09/06/24 10:28 stop working tramadol AdvReac Severe Other Verified 09/06/24 10:28 benzonatate AdvReac Unknown Headache Verified 09/06/24 10:28 codeine AdvReac Unknown Headache Verified 09/06/24 10:32 Review of Systems Review of Systems: All systems reviewed & are unremarkable except as noted in HPI and below PMFSH Past Medical History Medical History BMI 28.0-28.9,adult Urinary catheter insertion/adjustment/removal Anxiety and depression Shingles Meniere disease Sjogren syndrome Rectocele Interstitial pulmonary fibrosis Vitamin D deficiency PAF (paroxysmal atrial fibrillation) CKD (chronic kidney disease) Hyperlipidemia Hypothyroidism Hypertension HOCM (hypertrophic obstructive cardiomyopathy) Primary biliary cirrhosis Vertigo Actinic keratosis History of basal cell carcinoma (BCC) Chin Surgical History Surgical History History of bladder surgery bladder suspension History of knee replacement - 1997, 1998, 1999, 2001 History of cholecystectomy 1996 H/O: hysterectomy 1973 History of tubal ligation 1972 Family History Family History Father Hypertension Cerebrovascular accident, Onset Age: 70 Patient's father is Mother Hypertension Family history of aortic aneurysm, Onset Age: 81 Sibling Hypertension Family history of diabetes mellitus in first degree relative Family history of coronary artery disease Family history of premature coronary heart disease Patient's brother is Family history of malignant neoplasm of brain Family history of type 2 diabetes mellitus Sibling Diabetes mellitus Heart disease Advanced hepatic cirrhosis Social History Social History (Reviewed 09/06/24 @ 10:27 by Jean-Claude Hawthorne [facility]) Social History: Caffeine-daily Smoking status: Former smoker Second hand tobacco smoke exposure: Yes Alcohol intake: never Substance use: current Other substance usage details: CBD gummies Do You Feel Safe in your Home?: Yes Lack of Transportation: No Lack of Food: Never True Current Housing: I Have Housing Concerned About Future Housing: No Difficulty Paying Gas/Electric Bills: No Difficulty Paying for Meds: No Currently Unemployed: No Education: High School Diploma/GED Difficulty w/ Childcare or Family Care: No Living arrangements: with family Occupation/Education: retired Additional occupation/education comments: [employer]. Gender identity (if verbalized by the patient): Female Spiritual care concerns: No Exam Narrative: APPEARANCE: Well appearing, no pain, no distress, well-nourished. HEAD: normocephalic, atraumatic. EYES: PERRLA/EOMI, conjunctivae clear. NOSE: Epistaxis from left naris primarily but was septum defect is from both nares, EARS:TMS clear with good light reflex. THROAT: Pharynx clear, no exudate. NECK: Supple. No adenopathy, no masses. RESPIRATORY: Airway patent, respirations nonlabored. Clear to auscultation bilaterally, no rales, rhonchi, wheezing. CARDIOVASCULAR: Regular rate and rhythm without murmurs rubs or gallops. ABDOMINAL: Soft, nontender, nondistended, normal bowel sounds MUSCULOSKELETAL: Moves all extremities. Strength/ROM intact, No edema, No calf tenderness. NEURO: Alert. Cranial nerves II through XII intact. Good gait. Good coordination SKIN: Warm, dry. Normal Color Course Vital Signs Vital signs: Vital Signs Temperature 97.3 F L 09/30/24 08:32 Pulse Rate 78 09/30/24 08:32 Respiratory Rate 20 09/30/24 08:32 Blood Pressure 151/106 H 09/30/24 08:32 Pulse Oximetry 97 09/30/24 08:32 Temperature 97.3 F L 09/30/24 08:32 Pulse Rate 61 09/30/24 10:53 Respiratory Rate 19 09/30/24 10:53 Blood Pressure 111/65 09/30/24 10:53 Pulse Oximetry 99 09/30/24 10:53 Procedures Epistaxis Control bilateral: Epistaxis Control Time: 08:50 Time Out Performed: Yes Nose Prepped With: oxymetazoline Direct Inspection: yes and unable to visualize Clots Removed by: blowing nose Cautery Used: none Device Inserted: hemostatic dressing left: Epistaxis Control Time: 09:57 Time Out Performed: Yes Nose Prepped With: phenylephrine Direct Inspection: yes and anterior source identified Clots Removed by: blowing nose Cautery Used: none Device Inserted: nasal tampon Device Size: 5 Patient Tolerated Procedure: well and no complications MDM - Epistaxis MDM Narrative Medical decision making narrative: 84-year-old female presents emergency department for evaluation for significant epistaxis from the left naris. Both nostrils were packed with Afrin-soaked gauze and did have some improvement in the bleeding. A rhino rocket with TXA was placed in the left naris and bleeding was resolved. Patient will have close follow-up with ENT. Differential Diagnosis Differential diagnosis: Likely anterior epistaxis and posterior epistaxis Critical Care Time Critical Care Time Critical Care Time: Yes Total Critical Care Time: 35 Discharge Plan Discharge Clinical Impression: Acute anterior epistaxis Patient Disposition: Home Condition: Stable Instructions: Antibiotic Form, Nosebleed (ED) Additional Instructions: Have close follow-up with ENT. You will need to have the rhino rocket removed 1-2 days. If you have any worsening symptoms then please call or return to the emergency department. Patient Language: Central African Prescriptions: No Action vilazodone 20 mg Tablet 20 mg PO DAILY Rx Instructions: must administer with a meal/food losartan 25 mg tablet 25 mg PO DAILY Qty: 90 0RF furosemide 40 mg tablet 20 mg PO TID Qty: 90 3RF diphenoxylate-atropine [Lomotil] 2.5-0.025 mg tablet 1 tablet PO QID PRN (Reason: diarrhea) Qty: 20 1RF levothyroxine 175 mcg tablet 175 mcg PO DAILY Qty: 90 2RF albuterol sulfate 90 mcg/actuation HFA aerosol inhaler 2 puff inhalation Q4-6H PRN (Reason: shortness of breath or wheezing) Qty: 8.5 3RF metoprolol succinate 50 mg tablet extended release 24 hr 50 mg PO BID Qty: 180 2RF trazodone 100 mg tablet 100 mg PO QHS Qty: 90 2RF potassium chloride 20 mEq tablet extended release 40 meq PO DAILY Qty: 180 1RF ursodiol 500 mg tablet 500 mg PO BID Qty: 180 2RF Follow-up/Referrals: Tho Hayward MD [Physician] - Andrei Regan APRN [Primary Care Provider] -
--- OUTSIDE RECORDS SUMMARY | 2024-09-30 09:03 | XMS_ITS | Clinical Summary ---
Author Organization [facility] [employer] Address [facility] [facility] [place] [address] Care Team Providers Care Military Pay Technician Name Role Phone Hasmukh Gonzalez MD Primary Care Provider Unavail able Source Comments [facility] [employer],non-owned Affiliates and Associated Physician Practices is amultiple site organization consisting of ambulatory clinics and hospital sitesin [place], [place], [place] and [place]. This disclosure is being madepursuant to the Care Everywhere program and may not contain all information available regarding this patient. 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
--- OUTSIDE RECORDS SUMMARY | 2024-09-30 09:03 | XMS_ITS | Continuity of Care Document ---
Author Organization [facility] Address [address] [place] [address] Phone Care Team Providers Care Microbiology Instructor Name Role Phone [facility] Unavailable [...] Diagnoses Date Provider Providers Copied on Encounter [facility], [address], [place], [place], [address], [place] tel:[phone] [facility] No Information Feb- 5201 0 [facility] . [address], [address], [place], [place], [address], [place]. tel:[phone] Referring Provider: Pamela Valle, [address], [place], [address]. tel:[phone] wadsworth Provider: Lucita Laura, [address] [place] [address], [address]. tel:[phone] Office/outpat ient Visit, Est [facility], [address], [place], [place], [address], [place] tel:[phone] [facility] No Information Sep- 4-201 0 Odilia Santiago. [address], [address], [place], [address], [place]. tel:[phone] [facility], [address], [place], [place], [address], [place] tel:[phone] [facility] No Information Apr-2 4-200 9 Odilia Santiago. [address], [address], [place], [place], [facility], [place]. tel:[phone] [facility], [address], [place], [place], [address], [place] tel:[phone] [facility] No Information Dec-2 9-200 8 [facility] . [address] [facility] [facility], [address], [id number], [place]. tel:[phone] Consulting Provider: Mariah Bolden, [address] [place] [address], [address]. tel:[phone] [facility], [address], [place], [place], [address], [place] tel:[phone] [facility] No Information Aug-0 8-200 8 [facility] . [address], [address], [place], [place], [address], [place]. tel:[phone] Consulting Provider: Mariah Bolden, [address] [place] [address], [facility]. tel:[phone] [facility], [address], [place], [place], [address], tel:[phone] [facility] No Information Jan-0 8-200 8 Odilia Evans [address] , [address], [place], [facility], . tel:[phone] [facility], [address], [place], [place], [address], tel:[phone] [facility] No Information 0 2200 8 [facility] . [address], [address], [place], [place], [address], . tel:[phone] Referring Provider: Pamela Valle, [address], [place], [facility]. tel:[phone] g Provider: Mariah Bolden, [address] [place], [place], [facility]. tel:[phone] [facility], [address] [place] [address] [address], [place], [place], [address], tel:[phone] [facility] No Information 0 1200 8 Odilia Evans [address] , [address], [place], [facility], . tel:[phone] [facility], [address] [place] [address] [address], [place], [place], [address], tel:[phone] [facility] No Information 200 7 Odilia Evans [address] , [address], [place], [facility], . tel:[phone] Family History Family Member Type Diagnosis Age [...]
[2024-09-30] MEDS: OXYMETAZOLINE HCL 0.05% NAS 15 ML BTL (*BKC) 1 SPRAY NASAL (09:39)
[2024-09-30 10:53] VITALS: BP 111/65; PULSE 61; RESP 19; O2SAT 99
== END 2024-09-30 11:12 | disposition home or self-care (01) ==
PROVIDERS: Emergency Provider Emergency Medicine; PCP Nurse Practitioner
DX: R04.0 Epistaxis (principal); I48.0 Paroxysmal atrial fibrillation; I12.9 Hypertensive chronic kidney disease with stage 1 through stage 4 chronic kidney disease, or unspecified chronic kidney disease; N18.9 Chronic kidney disease, unspecified; I42.1 Obstructive hypertrophic cardiomyopathy; K74.3 Primary biliary cirrhosis; J84.10 Pulmonary fibrosis, unspecified; E55.9 Vitamin D deficiency, unspecified; H81.09 Meniere's disease, unspecified ear; M35.00 Sjogren syndrome, unspecified; F41.9 Anxiety disorder, unspecified; F32.A Depression, unspecified; Z96.659 Presence of unspecified artificial knee joint; Z85.828 Personal history of other malignant neoplasm of skin; Z87.891 Personal history of nicotine dependence; Z90.49 Acquired absence of other specified parts of digestive tract; Z90.710 Acquired absence of both cervix and uterus; Z79.899 Other long term (current) drug therapy
CPT/HCPCS: 30901; 99283; A9270

== ENCOUNTER 2024-10-08 14:05 | Emergency (ER) | payer MEDICARE, SELFPAY ==
--- NOTE | ~2024-10-08 | CT_ITS ---
CT brain wo con Ordering provider: Adam Blake MD History: 84 years Female with . trauma . Comparison: None. Technique: CT of the head without contrast. Radiation reduction technique utilized.The dose-length pr oduct was 681 mGy-cm. FINDINGS: BRAIN PARENCHYMA AND CSF SPACES: Mild leukoaraiosis and diffuse cortical atrophy. Mild atheromatous d isease. No midline shift, mass effect or hemorrhage. The brain parenchyma and CSF spaces are otherwi se normal. VISUALIZED PARANASAL SINUSES: Well aerated. MASTOIDS: Well aerated. BONES: The bones appear intact. SOFT TISSUES: Visualized nasopharynx is normal. Superficial soft tissues are normal. IMPRESSION: No acute intracranial findings. Reviewed, dictated and finalized at location A.
--- NOTE | ~2024-10-08 | CT_ITS ---
CT cervical spine wo con Ordering provider: Adam Blake MD History: . trauma . Comparison: None. Technique: CT of the cervical spine was performed without contrast. Sagittal and coronal reformatted images were also obtained and reviewed. Automated exposure control and iterative reconstruction dewayne hnique were employed. The dose-length product was 325.17 mGy-cm. FINDINGS: VERTEBRAE: No subluxation or acute fracture. The occipital condyles are intact. Small bony fragments or calcification is seen superior to the posterior arch of C1 and near to the left occipital atlanto axial joint most likely chronic.. DISC SPACES: Narrowing of the disc C3-C4 and C4-C5. Multilevel facet joint disease. PARASPINOUS SOFT TISSUES: Bilateral carotid calcifications. Mediastinal lymphadenopathy. Evaluation f or lymphoma or other etiology is advised. The largest lymph node measures 2 cm. Minimal opacification the right upper lobe which may indicate pneumonia versus atelectasis. IMPRESSION: No definite acute osseous abnormality cervical spine. Small bony fragments near to the left C1 latera l arch and near to the occipital atlantoaxial joint most likely chronic. Multilevel degenerative disc disease. Reviewed, dictated and finalized at location A. IMPRESSION: No definite acute osseous abnormality cervical spine. Small bony fragments near to the left C1 lateral arch and near to the occipital atlantoaxial joint most likely chronic. Multilevel degenerative disc disease.
[2024-10-08 14:16] VITALS: BP 173/90; PULSE 75; RESP 18; TEMP 36.6; O2SAT 99
--- OUTSIDE RECORDS SUMMARY | 2024-10-08 15:24 | XMS_ITS ---
Author Organization [facility] [email or web address] [facility] [place] ([address]) Address [address] [place] [address] Care Team Providers Care Robotic Machine Tender Production Name Role Phone Kirby Rodarte Primary Care Provider UnavailSophie Cool Unavailable [phone] [employer], Provider Unavailable Unavailab le Allergies Allergen (clinical drug ingredient) Drug/Non Drug Allergy documented on EMR Reaction Allergy Type Onset Date Status CONTRAST DYE (uncoded) other reaction Allergy Active codeine Codeine stomach upset Drug Allergy Act francesca REASON FOR VISIT [facility] To [facility] Conversion Encounter Medications Medication SIG (Take, Route, [...] Active Encounters Encounter Location Date Provider Diagnosis [facility] [place] [address] 11/19/2023 Provider ZEHRA-Aury Allergic rhinitis due to [...] Notes * Bart ACKERMANOB:1940 (84 yo F)Acc No.[id number]:11/19/2023 Patient: José Jenniffer OLVERA Provider: David Jeffers :1940 A ge:83 Y S ex:Female Date:11/19/2023 Address:[address] [place] [address], [address], [id number] Pcp:Kirby Rodarte Subjective: * Chief Complaints: * 1 . [facility] To [facility] Conversion Encounter. * Medical History: * Medications: [...] Electronic signature of Prov susan SHAHID-Migration on 10/08/2024 at 03:24 PM CDT Sign off status: Pending * Provider: David coyne Migration Date: 0 11/19/2023 Generated for Giovanni corbin/Latricia/Praful on: 0 10/08/2024 03:24 PM CDT
--- OUTSIDE RECORDS SUMMARY | 2024-10-08 15:24 | XMS_ITS ---
Author Organization [facility] [place] ([address]) Address [address] [place] [address] Care Team Providers Care Pile Driving Nozzleman Name Role Phone Kirby Rodarte Primary Care Provider UnavailSophie Cool Unavailable [phone] Mackenzie Obando Unavailable [phone] Allergies Allergen (clinical drug ingredient) Drug/Non Drug [...] 07/13/2023 Encounters Encounter Location Date Provider Diagnosis [facility] [address] [facility] [address] [place] [address] 07/13/2023 Mackenzie Obando Allergic rhinitis du e [...] Notes * Wili ACKERMANeDOB:1940 (83 yo F)Acc No.[id number]:07/13/2023 Progress Notes Patient: Jenniffer WARD Provider: Robin Obando MD :1940 A ge:83 Y S ex:Female Date:07/13/2023 Address:[address] [place] [address], [address], [id number] Pcp:Kirby Rodarte Subjective: * Chief Complaints: [...] t ubal ligation 1972hysterectomy 1974cholecystectomy 1986knee replacements [id number] * Hospitalization/Major Diagno stic Procedure: c hildbirth [...] Codes: 9 5004 PRICK TESTS, Units: 72.00 68485 PT-FOCUSED HLTH RISK [id number] DOC MEDS VERIFIED W/PT OR WQI7253 FLU IMM NO ORD/ADMIN DOC LIZY * [...] Management) * Billing Information: * Visit Code: 56779 Office Visit, New Pt., Level 3. Modifiers: 25 * Procedure Codes: 54898 PRICK TESTS. Units: 72.00. 46347 PT-FOCUSED HLTH RISK ASSMT. G8427 DOC MEDS VERIFIED W/PT OR RE. G8483 FLU IMM NO ORD/ADMIN DOC LIZY. Images * 07/13/2023 skin prick testin g * ER MAINTENANCE CLEANING Sign off status: Completed true * Provider: Robin Obando MD Date: 0 07/13/2023 Generated for Giovanni corbin/Latricia/Mckenzieitting on: 0 10/08/2024 03:24 PM CDT History and Physical Notes * HPI [...]
--- OUTSIDE RECORDS SUMMARY | 2024-10-08 15:24 | XMS_ITS | Patient Health Record ---
Author Organization [facility] [place] ([address]) Address [address] [place] [address] Care Team Providers Care Mud Boss Name Role Phone Kirby Rodarte Primary Care Provider UnavailSophie Cool Unavailable [phone] [employer], Provider Unavailable Unavailab le Allergies Allergen [...] Status Risk Notes Problem Chronic allergic conjunctivitis (74515487) Other chronic allergic conjunctivitis (H10.45) Active confirmed Problem Allergic rhinitis caused by pollen (disorder) (85460803) Allergic rhinitis due to pollen (J30.1) Active confirmed Problem Allergic rhinitis (58902995) Other allergic rhinitis (J30.89) Active confirmed Problem 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 confirmed Problem Allergic rhinitis caused by animal hair and dander (595678940331289) Allergic rhinitis due to animal (cat) (dog) hair and dander (J30.81) Active confirmed Encounters Encounter Location Date Provider Diagnosis DYLON Martino [address] [place] [address] 11/19/2023 Provider Lindsay Allergic rhinitis due to [...] Date [employer] II [address] [place] [address] [phone] Jenniffer Cm Self - patient is the insured 4 Medical (General) History Medical History History ICD Code hypothyroidism primary biliary cirrhosis osteoarthritis heart murmur Surgical History Surgery Date(Month/Year) tubal ligation 1972 hysterectomy 1973 cholecystectomy 1986 knee replacements [id number] Hospitalization History Reason Date(Month/Year) pneumonia 07/2022 childbirth 1973 childbirth 1967 childbirth 1964 childbirth 1962
--- OUTSIDE RECORDS SUMMARY | 2024-10-08 15:24 | XMS_ITS | Continuity of Care Document ---
Author Organization [facility] Address [address] [place] [address] Phone Care Team Providers Care Bridge Tender Name Role Phone [facility] Unavailable [...] Diagnoses Date Provider Providers Copied on Encounter [facility], [address], [place], [place], [address], [place] tel:[phone] [facility] No Information Feb- 0 [facility] . [address] [facility], [address], [place], [place], [address], [place]. tel:[phone] Referring Provider: Pamela Valle, [address], [place], [address]. tel:[phone] wadsworth Provider: Lucita Laura, [address] [place] [address], [address]. tel:[phone] Office/outpat ient Visit, Est [facility], [address], [place], [place], [address], [place] tel:[phone] [facility] No Information Sep- 4-201 0 Odilia Santiago. [address], [place], [address], [place]. tel:[phone] [facility], [address], [place], [place], [address], [place] tel:[phone] [facility] No Information Apr-2 4-200 9 Odilia Santiago. [address], [place], [address], [place]. tel:[phone] [facility], [address], [place], [place], [address], [place] tel:[phone] [facility] No Information Dec-2 9-200 8 [facility] . [address] [facility], [address], [address], [place]. tel:[phone] Consulting Provider: Mariah Bolden, [address] [place] [address], [address]. tel:[phone] [facility], [address], [place], [place], [address], [place] tel:[phone] [facility] No Information Aug-0 8-200 8 [facility] . [address] [facility], [address], [place], [place], [address], [place]. tel:[phone] Consulting Provider: Mariah Bolden, [address] [place] [address], [facility]. tel:[phone] [facility], [address], [place], [place], [address], tel:[phone] [facility] No Information Jan-0 8-200 8 Odilia Evans [address], [place], [facility], . tel:[phone] [facility], [address], [place], [place], [address], tel:[phone] [facility] No Information 0 2200 8 [facility] . [address] [facility], [address], [place], [place], [address], . tel:[phone] Referring Provider: Pamela Valle, [address], [place], [facility]. tel:[phone] g Provider: Mariah Bolden, [address] [place], [place], [facility]. tel:[phone] [facility], [address] [place] [address] [address], [place], [place], [address], tel:[phone] [facility] No Information 0 1200 8 Odilia Evans [address], [place], [facility], . tel:[phone] [facility], [address] [place] [address] [address], [place], [place], [address], tel:[phone] [facility] No Information 200 7 Odilia Evans [address] , [address], [place], [facility], . tel:[phone] Family History Family Member Type Diagnosis Age At Onset No Information Payers Payer name Insurance type Covered alliance party ID Authoriza tion(s) No Information Social [...]
--- OUTSIDE RECORDS SUMMARY | 2024-10-08 15:24 | XMS_ITS | CONTINUITY OF CARE DOCUMENT ---
Author Name alicja jeremyyesika Address Unknown Organization [facility] Address [address] [place] [address] Phone [phone] Care Team Providers Care Health And Wellness Coach Name Role Phone Jl Corey MD Unavailable MARIYA DO, PAYAL Unavailable [phone] MARIYA DO, PAYAL Unavailable [phone] PROBLEMS Condition Status Date Provider Notes Microalbuminuria [...] In-person encounter Office Visit Jl Corey MD [facility] Atrial fibrillation, chronic;tsh on rxDiastolic CHFOverweightPrimary biliary cirrhosisScreening - In-person encounter Office Visit Jl Corey MD [facility] Atrial fibrillation, chronic;tsh on rxHypertension;neg duplexElevated LFT'sHypoalbuminemiacovid and had vaccineFAMILY HISTORY OF HEART DISEASEHyperlipidemia;with high crp and lpa 117HypothyroidismScreening - In-person encounter Office Visit Jl Corey MD [facility] Primary biliary cirrhosis - In-person encounter Office Visit Jl Corey MD [facility] LBBBAtrial fibrillation, chronic;tsh on rxHypertension;neg duplexDiastolic [...] Charlette Sparrow height E&M 65 [in_i] [facility] Body Mass Index (Ratio) 31.45 kg/m2 Jacqui Corey MD blood pressure, diastolic 112 mm[Hg] Cari Gordillo blood pressure, systolic 187 mm[Hg] Sharla Gordillo oxygen saturation, oximetry 94 % Sara Onida respiratory rate E&M 94 /min Sara Onida pulse rate 72 /min Sara Onida weight E&M 189 [lb_av] Sara Onida height E&M 65 [in_i] Sara Onida blood pressure, cuff size regular Cari baca [...] iron binding capacity, unsaturated 250 ug/dL [employer] [phone]/10/3 1 iron binding capacity, total 283 ug/dL [employer] [phone]/10/3 1 microalbumin/creatin ine ratio, urine 49 MG/G [...] 0-149 1 cholesterol, serum 175 mg/dL [employer] [phone]/10/3 1 hemoglobin A1C, blood, as % of [...] Estab. 1 platelet count 332 X10E3/UL [employer] [phone]/10/3 1 red blood cell distribution width 13.4 [...] 3.5-5.2 2 sodium, serum 140 mmol/L [employer] [phone]/10/2 2 urea nitrogen/creatinine ratio, serum 13 [employer] [...] pen injector subcutaneously once a week - [facility] Specialist losartan 25 mg tablet completed Take [...] levothyroxine 200 mcg tablet active Radha Owenmiglia CIRCUIT BREAKER SUPERVISOR Klor-Con M20 20 mEq tablet,ER particles/twan ls completed - Radhabrittney Owenmiglgiovanni BURKSP furosemide 40 mg tablet completed - Radha Owenmiglia MELISSA albuterol sulfate 90 mcg/actuation HFA aerosol inhaler active Radha Owenmiglia CIRCUIT BREAKER SUPERVISOR metoprolol succinate 50 mg tablet extended release [...] history of marijuana use no Radha Owenmiglia CIRCUIT BREAKER SUPERVISOR drug use no Radha Ventimig geraldine CIRCUIT BREAKER SUPERVISOR alcohol use no Radha Ventimig geraldine CIRCUIT BREAKER SUPERVISOR smoking status Never smoker Radha Gutierrez iglgiovanni BURKSP FAMILY HISTORY Family Member Condition Full Brother CAD male <55 Father Stroke/CVA INSURANCE PROVIDERS Payer name Policy type / Coverage type [place] [employer] democr[employer] ID [employer] MEDICARE JUDIE PPO Medicare [id number] 500 ADVANCE DIRECTIVES Name Date DISCUSSED - NO DECISION MADE TREATMENT PLAN Date Name Performer Cardiology Jl Corey MD Cardiology Jl Corey MD Cardiology: M ILLD MA AND SEVERE TR ADN MILD AND MILD [...] 57 Jl Corey MD Cardiology: M ILLD MA AND SEVERE TR ADN MILD AND MILD [...] Corey MD Cardiology Jl Corey MD :MILLD MA AND SEVERE TR ADN MILD AND MILD MR Jl Corey MD :58 Jl Corey MD :3040 EF 55 Jl Corey MD :57 Jl Corey MD Cardiology:with asso ciated SOB with minimal exertion. p lanned for stress test to r/o ischemia H er updated medication list for this problem includes: Metoprolol Succinate 50 Mg Tablet Extended Release 24 Hr (Metoprolol succinate) [facility] Cardiology:egfr of 5 3 on last labs W ill do renal duplex [facility] Cardiology:LFTs only mildly elevated on last labs [facility] Cardiology:BP above goal will add losartan H er updated medication list for this problem includes: Losartan 25 Mg Tablet (Losartan) ..... Take 1 tablet by mouth once daily Metoprolol Succinate 50 Mg Tablet Extended Release 24 Hr (Metoprolol succinate) [facility] Cardiology:chronic r ate controlled p atient had nosebleeds with xarelto s he refuses all AC W e did discuss risk of stoke and she verbalized understanding H er updated medication list for this problem includes: Metoprolol Succinate 50 Mg Tablet Extended Release 24 Hr (Metoprolol succinate) [facility] Cardiology: 3 040, ef 65 S he has continued SOB with minimal activity l ast echo 07/2022 at [facility] W ill upadat echo [facility] :41 Jl Corey MD :3040, ef 65 Jl Corey MD :53 Jl Corey MD Cardiology:weight loss encourage d [facility] Cardiology:controlle d T he following medications were removed from the medication list: Furosemide 40 Mg Tablet (Furosemide) Her updated medication list for this problem includes: Metoprolol Succinate 50 Mg Tablet Extended Release 24 Hr (Metoprolol succinate) [facility] Cardiology:patient h as SOB with [...] Release 24 Hr (Metoprolol succinate) Radha Murillo CIRCUIT BREAKER SUPERVISOR Cardiology:rate cont rolled on metoprolol c oncern contibuting to her SOB W ill add xarelto for AC p gwyn tele monitor g et recent labs and echo from [facility] eturn post testing H er updated medication list for this problem includes: Metoprolol Succinate 50 Mg Tablet Extended Release 24 Hr (Metoprolol succinate) Radha Murillo [facility] Date Name Complete Echo Stress Regadenoson [...]
--- OUTSIDE RECORDS SUMMARY | 2024-10-08 15:24 | XMS_ITS ---
Author Organization [facility] ([address]) Address [address] [place] [address] Care Team Providers Care Greenskeeper Name Role Phone Kirby Rodarte Primary Care Provider UnavailSophie Cool Unavailable [phone] Mackenzie Obando Unavailable [phone] REASON FOR VISIT ARC follow-up Encounters Encounter Location Date Provider Diagnosis [facility] [address] [place] [address] 08/10/2023 Mackenzie Obando Plan Of Treatment No Information Progress Notes * Bart ACKERMANOB:1940 (84 yo F)Acc No.[id number]:08/10/2023 Progress Notes Patient: Ibeth WARDyce Provider: Robin Obando MD :1940 A ge:83 Y S ex:Female Date:08/10/2023 Address:[address], [facility] Pcp:Kirby Rodarte Subjective: * Chief Complaints: * 1 . ARC follow-up. * Medical History: Objective: * Vitals: Assessment: Plan: * Treatment: * Billing Information: * Visit Code: * Procedure Codes: * Electronic signature of Cony Obando MD on 10/08/2024 at 03:24 PM CDT Sign off status: Pending * Provider: Robin Obando MD Date: 0 08/10/2023 Generated for Giovanni corbin/Latricia/Praful on: 0 10/08/2024 03:24 PM CDT
--- OUTSIDE RECORDS SUMMARY | 2024-10-08 15:24 | XMS_ITS | Clinical Summary ---
Author Organization [facility] Address [address] [place] [address] Care Team Providers Care Stitch Bonding Machine Tender Helper Name Role Phone Hasmukh Gonzalez MD Primary Care Provider Unavail able Source Comments [facility],non-owned Affiliates and Associated Physician Practices is amultiple site organization consisting of ambulatory clinics and hospital sitesin [place], [place], [place] and [place]. This disclosure is being madepursuant to the Care Everywhere program and may not contain all information available regarding this patient. 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
--- OUTSIDE RECORDS SUMMARY | 2024-10-08 15:25 | XMS_ITS | Patient Health Record ---
Author Organization [facility] [employer] Address [address] [place] [address] Care Team Providers Care Energy Rater Name Role Phone Kartik Hines DO Primary Care Provider UnavailAgnieszka Hankins Unavailable [phone] Anoop Robles Unavailable [phone] Migration, Provider Unavailable Unavailable Allergies Allergen (clinical [...] Status Risk Notes Problem Generalized anxiety disorder (46860886) Generalized anxiety disorder (F41.1) 07/07/19 Active confirmed Problem Primary insomnia (1225103) Primary insomnia (F51.01) 07/07/19 Active confirmed Problem Amnesia (58985365) Other amnesia (R41.3) 07/07/19 Active confirmed Problem Screening for cardiovascular system disease (034467612) Encounter for screening for cardiovascular disorders (Z13.6) Active confirmed Problem 851231414 MDD (major depressive disorder), recurrent episode, mild (F33.0) Active confirmed Vital Signs Heart Rate 99 /min 09/17/2024 Respiratory Rate 18 /min 02/20/2024 Height-cm 165.10 cm 09/17/2024 Blood pressure diastolic 77 mm Hg 09/17/2024 Weight-kg 79.38 kg 09/17/2024 Height 65.00 in 09/17/2024 Blood pressure systolic 108 mm Hg 09/17/2024 Weight 175 lbs 09/17/2024 BMI 29.12 kg/m2 09/17/2024 Encounters Encounter Location Date Provider Diagnosis [facility] [employer] [facility] [address] [facility] [address] [place] [address] 01/05/2024 Agnieszka Sorenson [facility] [employer] [place] [address] [facility] [address] [place] [address] 01/09/2024 Agnieszka Sorenson MDD (major depressiv e disorder), recurrent episode, mild F33.0 ; Generalized anxiety disorder F41.1 ; Primary insomnia F51.01 and Other amnesia R41.3 [facility] [employer] [facility] [address] [place] [address] 02/20/2024 Agnieszka Sorenson MDD (major depressiv e disorder), recurrent episode, mild F33.0 ; Generalized anxiety disorder F41.1 ; Primary insomnia F51.01 and Other amnesia R41.3 [facility] [employer] [facility] [address] [place] [address] 09/17/2024 Agnieszka Sorenson MDD (major depressiv e disorder), recurrent episode, mild F33.0 ; Generalized anxiety disorder F41.1 ; Primary insomnia F51.01 ; Other amnesia R41.3 and Encounter for screening for cardiovascular disorders Z13.6 [facility] [place] [address] [facility] [address] [place] [address] 10/22/2023 Provider Migration [facility] [address] [facility] [address] [place] [address] 10/23/2023 Provider Migration [address] [facility] [address] [place] [address] 04/10/2024 Anoop Robles [facility] [place] [address] [facility] [address] [facility] [address] [place] [address] 08/06/2024 Angieszka Sorenson Assessments Encounter Date Diagnosis (ICD Code) [...] depression - labs recently- will obtain seen personnel assistant recently has AFib Viibyrd 40 mg daily- [...] has dementia labs recently- will obtain seen personnel assistant recently has hx AFib Discuss and educated [...] has dementia labs recently- will obtain seen personnel assistant recently has hx AFib Discuss and educated [...] depression - labs recently- will obtain seen personnel assistant recently has AFib Viibyrd 40 mg daily- [...] depression - labs recently- will obtain seen personnel assistant recently has AFib Viibyrd 40 mg daily- [...] has dementia labs recently- will obtain seen personnel assistant recently has hx AFib Discuss and educated [...] has dementia labs recently- will obtain seen personnel assistant recently has hx AFib Discuss and educated [...] depression - labs recently- will obtain seen personnel assistant recently has AFib Viibyrd 40 mg daily- [...] has dementia labs recently- will obtain seen personnel assistant recently has hx AFib Discuss and educated [...] or national office of the Alzheimer's Association (0-840-532-488 0; http://www.alz .org), the Alzheimer's Disease Education and Referral Center (ADEAR) (6-795-268-406 0; http://www.halley .nih.gov/Alzhe imers/), 1. Recurrent major depression - labs recently- will obtain seen personnel assistant recently has AFib Viibyrd 40 mg daily- [...] Provider Name:Agnieszka Sorenson , 12/17/2024 01:00:00 PM, [facility] [address] [facility] [address], [place], [address], Insurance Providers Payer Name Payer Address Payer Phone Subscriber Number Group Number Insured Name Patient Relationship to Insured Coverage Start Date Coverage End Date Medicare-I l Medicare [address] [place] [address] [id number] FINA ACKERMAN Self - patient is the insured Aet [address] [place] [address] [phone] [id number] FINA ACKERMAN Self - patient is the insured Medical (General) History Medical History History ICD Code Problems: Acute COVID-19 Generalized anxiety disorder Memory impairment Primary insomnia Recurrent major depression , AFIB BILARY Cirrohosis Surgical History Surgery Date(Month/Year) Removal of gallbladder (75806) Hysterectomy (24016) Cataract surgery (01723) Appendectomy (72990) Other
[2024-10-08 16:29] VITALS: BP 149/94; PULSE 98; RESP 18; O2SAT 100
--- NOTE | 2024-10-08 17:22 | ED.GENADULT ---
HPI - General Adult General Chief complaint: Fall Stated complaint: fall Time Seen by Provider: 10/08/24 14:10 History of Present Illness HPI narrative: Patient is a 84-year-old female who presents ER after a fall. She had put on her sweatshirt and was having trouble with her collar. She bent over so her could help her and when she stood back up she just kept going and fell backwards striking her head on the ground. No LOC. Reports pain to left side of her neck. No numbness or tingling of the arms or legs. No additional concern for injury. She is not on any blood thinning medications. Related Data Home Medications ?Medication ?Instructions ?Recorded ?Confirmed ?Last Taken ?Type vilazodone 20 mg tablet 20 mg PO DAILY 02/20/23 10/02/24 Unknown History mirtazapine 7.5 mg tablet mg PO 10/02/24 10/02/24 Unknown History Allergies Allergy/AdvReac Type Severity Reaction Status Date / Time Gadolinium-Containing Allergy Severe Chest Pain Verified 10/08/24 14:26 Contrast Medi adhesive tape Allergy Mild Rash Verified 10/08/24 14:26 ioversol Allergy Unknown Other Verified 10/08/24 14:26 morphine Allergy Unknown Liver Verified 10/08/24 14:26 function tests abnormal acetaminophen AdvReac Severe kidney Verified 10/08/24 14:26 stop working tramadol AdvReac Severe Other Verified 10/08/24 14:26 benzonatate AdvReac Unknown Headache Verified 10/08/24 14:26 codeine AdvReac Unknown Headache Verified 10/08/24 14:26 Review of Systems Review of Systems: All systems reviewed & are unremarkable except as noted in HPI and below Constitutional: Constitutional: Reports no additional constitutional complaints Cardiovascular: Cardiovascular: Reports no additional cardiovascular complaints Respiratory: Respiratory: Reports no additional respiratory complaints Musculoskeletal: Musculoskeletal: Reports no additional musculoskeletal complaints Neurologic: Reports system reviewed and no additional complaints, except as documented PMFSH Past Medical History Medical History BMI 28.0-28.9,adult Urinary catheter insertion/adjustment/removal Anxiety and depression Shingles Meniere disease Sjogren syndrome Rectocele Interstitial pulmonary fibrosis Vitamin D deficiency PAF (paroxysmal atrial fibrillation) CKD (chronic kidney disease) Hyperlipidemia Hypothyroidism Hypertension HOCM (hypertrophic obstructive cardiomyopathy) Primary biliary cirrhosis Vertigo Actinic keratosis History of basal cell carcinoma (BCC) Chin Surgical History Surgical History History of bladder surgery bladder suspension History of knee replacement - 1997, 1998, 1999, 2001 History of cholecystectomy 1996 H/O: hysterectomy 1974 History of tubal ligation 1973 Family History Family History Father Hypertension Cerebrovascular accident, Onset Age: 70 Patient's father is Mother Hypertension Family history of aortic aneurysm, Onset Age: 81 Sibling Hypertension Family history of diabetes mellitus in first degree relative Family history of coronary artery disease Family history of premature coronary heart disease Patient's brother is Family history of malignant neoplasm of brain Family history of type 2 diabetes mellitus Sibling Diabetes mellitus Heart disease Advanced hepatic cirrhosis Social History Social History Social History: Caffeine-daily Smoking status: Former smoker Second hand tobacco smoke exposure: Yes Alcohol intake: never Substance use: current Other substance usage details: CBD gummies Do You Feel Safe in your Home?: Yes Lack of Transportation: No Lack of Food: Never True Current Housing: I Have Housing Concerned About Future Housing: No Difficulty Paying Gas/Electric Bills: No Difficulty Paying for Meds: No Currently Unemployed: No Education: High School Diploma/GED Difficulty w/ Childcare or Family Care: No Living arrangements: with family Occupation/Education: retired Additional occupation/education comments: [employer]. Gender identity (if verbalized by the patient): Female Spiritual care concerns: No Exam Narrative: GENERAL: Well-appearing, well-nourished, and in no acute distress. HEAD: Normocephalic, atraumatic. ENT: Mucous membranes moist. NECK: Supple. Mild left paraspinal tenderness more cephalad region. No midline tenderness or step-off. CHEST: Clear to auscultation. No respiratory distress. HEART: Regular rate and rhythm. Normal peripheral pulses. EXTREMITIES: Normal range of motion. No edema. Normal strength in the extremities. SKIN: Warm, dry, no rash. NEURO: No focal deficits. Alert and oriented x3. PSYCH: Normal mood and affect. Course Course Emergency Course: Discussed imaging results with neurosurgery Dr. Grant smart. Recommends [place] collar and outpatient follow-up. Vital Signs Vital signs: Vital Signs Temperature 97.8 F 10/08/24 14:16 Pulse Rate 75 10/08/24 14:16 Respiratory Rate 18 10/08/24 14:16 Blood Pressure 173/90 H 10/08/24 14:16 Pulse Oximetry 99 10/08/24 14:16 Oxygen Delivery Room Air 10/08/24 14:16 Temperature 97.8 F 10/08/24 14:16 Pulse Rate 98 10/08/24 16:29 Respiratory Rate 18 10/08/24 16:29 Blood Pressure 149/94 H 10/08/24 16:29 Pulse Oximetry 100 10/08/24 16:29 Oxygen Delivery Room Air 10/08/24 14:16 Medical Decision Making Vital Signs Vital Signs: Vital Signs Temperature 97.8 F 10/08/24 14:16 Pulse Rate 75 10/08/24 14:16 Respiratory Rate 18 10/08/24 14:16 Blood Pressure 173/90 H 10/08/24 14:16 Pulse Oximetry 99 10/08/24 14:16 Oxygen Delivery Room Air 10/08/24 14:16 Temperature 97.8 F 10/08/24 14:16 Pulse Rate 98 10/08/24 16:29 Respiratory Rate 18 10/08/24 16:29 Blood Pressure 149/94 H 10/08/24 16:29 Pulse Oximetry 100 10/08/24 16:29 Oxygen Delivery Room Air 10/08/24 14:16 Discharge Plan Discharge Clinical Impression: Injury of neck, Fall Patient Disposition: Home Condition: Stable Instructions: Atka J Collar (ED) Additional Instructions: Your CT scan showed a bony abnormality. The neuro surgeon is recommended he wear a soft cervical collar any time your awake and moving but you can sleep without the collar on. Return to the ER if you have recurrent fall, you have new focal weakness or numbness in arm or leg, or you have additional concerns. Patient Language: Syriac Prescriptions: No Action vilazodone 20 mg Tablet 20 mg PO DAILY Rx Instructions: must administer with a meal/food losartan 25 mg tablet 25 mg PO DAILY Qty: 90 0RF furosemide 40 mg tablet 20 mg PO TID Qty: 90 3RF mirtazapine 7.5 mg tablet PO diphenoxylate-atropine [Lomotil] 2.5-0.025 mg tablet 1 tablet PO QID PRN (Reason: diarrhea) Qty: 20 1RF levothyroxine 175 mcg tablet 175 mcg PO DAILY Qty: 90 2RF metoprolol succinate 50 mg tablet extended release 24 hr 50 mg PO BID Qty: 180 2RF potassium chloride 20 mEq tablet extended release 40 meq PO DAILY Qty: 180 1RF ursodiol 500 mg tablet 500 mg PO BID Qty: 180 2RF Follow-up/Referrals: Philip Godinez MD [Physician] - 1 Week Andrei Regan APRN [Primary Care Provider] -
== END 2024-10-08 17:32 | disposition home or self-care (01) ==
PROVIDERS: Emergency Provider Emergency Medicine; PCP Nurse Practitioner
DX: S19.9XXA Unspecified injury of neck, initial encounter (principal); W18.30XA Fall on same level, unspecified, initial encounter; F41.8 Other specified anxiety disorders; H81.09 Meniere's disease, unspecified ear; M35.00 Sjogren syndrome, unspecified; E55.9 Vitamin D deficiency, unspecified; I48.0 Paroxysmal atrial fibrillation; N18.9 Chronic kidney disease, unspecified; E78.5 Hyperlipidemia, unspecified; E03.9 Hypothyroidism, unspecified; I10 Essential (primary) hypertension
CPT/HCPCS: 70450; 72125; 99284; L0140

== ENCOUNTER 2024-10-26 15:06 | Outpatient (CLI) | payer MEDICARE, SELFPAY ==
--- NOTE | ~2024-10-26 | MR_ITS ---
MRI of the brain Clinical History: Head injury Technique: Axial and sagittal T1-weighted images were acquired. These were followed by axial T2-weigh subhash, diffusion weighted, gradient, and FLAIR images. COMPARISON: 08/10/2019 Findings: There is no acute infarct, intracranial hemorrhage, or mass lesion. There are extensive chr onic white matter changes throughout the periventricular white matter bilaterally. Ventricles and subarachnoid spaces are mildly dilated. Orbits are unremarkable. Paranasal sinuses and mastoid air cells are clear. Major intracranial flow voids appear intact. Sagittal midline structures are intact. IMPRESSION: No acute infarct, intracranial hemorrhage, or mass lesion. Severe chronic microvascular ischemic change and mild generalized atrophy. Reviewed, dictated and finalized at location .
== END 2024-10-26 15:07 | disposition home or self-care (01) ==
PROVIDERS: PCP Internal Medicine; Visit Provider Internal Medicine
DX: I67.2 Cerebral atherosclerosis (principal); G31.9 Degenerative disease of nervous system, unspecified; S09.90XA Unspecified injury of head, initial encounter; X58.XXXA Exposure to other specified factors, initial encounter; H53.9 Unspecified visual disturbance
CPT/HCPCS: 70551

== ENCOUNTER 2024-12-21 17:05 | Emergency (ER) | payer MEDICARE, SELFPAY ==
[2024-12-21] VITALS (10 sets, daily range): BP systolic 147–194; BP diastolic 75–102; PULSE 62–72; RESP 18–34; TEMP 36.6–36.7; O2SAT 92–100
--- NOTE | ~2024-12-21 | XR_ITS ---
EXAMINATION: XR chest 1V portable Exam Date/Time: 12/21/2024 19:20 CDT HISTORY: CHF Comparison: 07/31/2024. RESULT: Lines, tubes, and devices: None. Lungs and pleura: No focal consolidation, pleural effusion, or pneumothorax. Mild diffuse reticular opacities. Cardiomediastinal silhouette: Stable. Other: No acute osseous or upper abdominal finding. IMPRESSION: Mild interstitial edema versus chronic interstitial/senescent change. Reviewed, dictated and finalized at location K.
--- OUTSIDE RECORDS SUMMARY | 2024-12-21 17:06 | XMS_ITS | Continuity of Care Document ---
Author Organization [facility]ly [facility] Address [address] [place] [address] Phone Care Team Providers Care Quality Tester Name Role Phone [facility] Unavailable [...] Diagnoses Date Provider Providers Copied on Encounter [facility], [address], [place], [place], [address], [place] tel:[phone] SEC [facility] No Information Feb- 5201 0 [facility] . [address], [address], [place], [place], [address], [place]. tel:[phone] Referring Provider: Pamela Valle, [address], [place], [address]. tel:[phone] wadsworth Provider: Lucita Laura, [address] [place] [address], [address]. tel:[phone] Office/outpat ient Visit, Est [facility], [address], [place], [place], [address], [place] tel:[phone] [facility] No Information Sep- 4-201 0 Odilia Santiago. [address], [address], [place], [address], [place]. tel:[phone] [facility], [address], [place], [place], [address], [place] tel:[phone] [facility] No Information Apr-2 4-200 9 Odilia Santiago. [address], [address], [place], [address], [place]. tel:[phone] [facility], [address], [place], [place], [address], [place] tel:[phone] [facility] No Information Dec-2 9-200 8 [facility] . [address], [address], [id number], [place]. tel:[phone] Consulting Provider: Mariah Bolden, [address] [place] [address], [address]. tel:[phone] [facility], [address], [place], [place], [address], [place] tel:[phone] [facility] No Information Aug-0 8-200 8 [facility] . [address], [address], [place], [place], [address], [place]. tel:[phone] Consulting Provider: Mariah Bolden, [address] [place] [address], [facility]. tel:[phone] [facility], [address], [place], [place], [address], tel:[phone] [facility] No Information Jan-0 8-200 8 Odilia Evans [address] , [address], [place], [place], [facility], . tel:[phone] [facility], [address], [place], [place], [address], tel:[phone] [facility] No Information 0 2200 8 [facility] . [address], [address], [place], [place], [address], . tel:[phone] Referring Provider: Pamela Valle, [address], [place], [place], [facility]. tel:[phone] g Provider: Mariah Bolden, [address] [place], [place], [facility]. tel:[phone] [facility], [address] [place] [address] [address], [place], [place], [address], tel:[phone] [facility] No Information 0 1200 8 Odilia Evans [address] , [address], [place], [place], [facility], . tel:[phone] [facility], [address] [place] [address] [address], [place], [place], [address], tel:[phone] [facility] No Information 200 7 Odilia Evans [address] , [address], [place], [place], [facility], . tel:[phone] Family History Family Member Type Diagnosis Age At Onset No Information Payers Payer name Insurance type Covered republican ID Authoriza tion(s) No Information Social History [...]
--- OUTSIDE RECORDS SUMMARY | 2024-12-21 17:07 | XMS_ITS | Patient Health Record ---
Author Organization [facility] [place] ([address]) Address [address] [place] [address] Care Team Providers Care Scada Operator Name Role Phone Kiryb Rodarte Primary Care Provider Sophie Pereyra Unavailable [phone] Allergies Allergen (clinical drug ingredient) Drug/Non Drug [...] a day; Duration: 30 days 07/13/2023 Active Furosemide 40 MG [...] a day; Duration: 30 day(s) 07/13/2023 Active Metoprolol Succinate ER 50 MG 1 tab(s) orally once a day Active LEVOCETIRIZINE 5 mg 1 tab(s) orally once a day (in the evening); Duration: 30 day(s) 07/13/2023 Active URSODIOL 500 mg 1 tab(s) orally twice a day; Duration: 30 days 07/13/2023 Active KLOR-CON 20 mEq 1 ea orally 2 times a day; Duration: 30 day(s) 07/13/2023 Active TRAZODONE HYDROCHLORIDE 100 mg as directed orally 07/13/2023 A ctive METOPROLOL 50 mg 1 tab(s) orally once a day Active LEVOTHYROXINE SODIUM 200 mcg (0.2 mg) 1 tab(s) orally once a day; Duration: 30 day(s) 07/13/2023 Active FUROSEMIDE 40 mg [...] Status Risk Notes Problem Chronic allergic conjunctivitis (55620797) Other chronic allergic conjunctivitis (H10.45) Active confirmed Problem Allergic rhinitis caused by pollen (disorder) (66979578) Allergic rhinitis due to pollen (J30.1) Active confirmed Problem Allergic rhinitis (52002457) Other allergic rhinitis (J30.89) Active confirmed Problem 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 confirmed Problem Allergic rhinitis caused by animal hair and dander (918711418469050) Allergic rhinitis due to animal (cat) (dog) hair and dander (J30.81) Active confirmed Plan Of Treatment No Information Insurance Providers Payer Name Payer Address Payer Phone Subscriber Number Group Number Insured Name Patient Relationship to Insured Coverage Start Date Coverage End Date Aetna Choice POS II [address] [place] [phone] [id number] Jenniffer Cm Self - patient is the insured Medical (General) History Medical History History ICD Code hypothyroidism primary biliary cirrhosis osteoarthritis heart murmur Surgical History Surgery Date(Month/Year) tubal ligation 1973 hysterectomy 1974 cholecystectomy 1987 knee replacements Hospitalization History Reason Date(Month/Year) pneumonia 07/2022 childbirth 1971 childbirth 1968 childbirth 1964 childbirth 1962
--- OUTSIDE RECORDS SUMMARY | 2024-12-21 17:07 | XMS_ITS | Patient Health Record ---
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 Role Phone Kartik Hines DO Primary Care Provider UnavailAgnieszka Hankins Unavailable [phone] Anoop Robles Unavailable [phone] Allergies Allergen (clinical drug ingredient) Drug/Non Drug [...] Act francesca Vilazodone HCl 40 MG 1 TABLET WITH FOOD BY MOUTH ONCE A DAY 90; Duration: 90 Active Mirtazapine 30 MG 1 tablet at bedtime Orally Once a day; Duration: 90 days d/c 15 mg dose Active Metoprolol Succinate ER 50 MG Oral 07/07/2023 Active Levothyroxine Sodium 200 MCG Oral 07/07/2023 Active traZODone HCl 100 MG Oral 07/07/2023 Active Olopatadine HCl 0.1 % Ophthalmic 07/07/2023 Active Furosemide 40 MG Oral 07/07/2023 Ac tive Klor-Con M20 20 MEQ Oral 07/07/2023 Active Immunizations Vaccine Route Administration Date [...] Status Risk Notes Problem Generalized anxiety disorder (86853116) Generalized anxiety disorder (F41.1) 07/07/19 Active confirmed Problem Primary insomnia (9425923) Primary insomnia (F51.01) 07/07/19 Active confirmed Problem Amnesia (87424079) Other amnesia (R41.3) 07/07/19 Active confirmed Problem Screening for cardiovascular system disease (730982799) Encounter for screening for cardiovascular disorders (Z13.6) Active confirmed Problem Dietary management surveillance (836089502) Dietary counseling and surveillance (Z71.3) Active confirmed Problem Mild recurrent major depression (68719214) MDD (major depressive disorder), recurrent episode, mild (F33.0) Active confirmed Vital Signs Heart Rate 69 /min 11/08/2024 Respiratory Rate 19 /min 11/08/2024 Height-cm 165.10 cm 11/08/2024 Blood pressure diastolic 83 mm Hg 11/08/2024 Weight-kg 77.11 kg 11/08/2024 Height 65.00 in 11/08/2024 Blood pressure systolic 150 mm Hg 11/08/2024 Weight 175 lbs 09/17/2024 BMI 28.29 kg/m2 11/08/2024 Encounters Encounter Location Date Provider Diagnosis [facility] [employer] [facility] [address] [place] [address] 01/05/2024 Agnieszka Sorenson [facility] [employer] [facility] [address] [place] [address] 01/09/2024 Agnieszka Sorenson MDD (major depressiv e disorder), recurrent episode, mild F33.0 ; Generalized anxiety disorder F41.1 ; Primary insomnia F51.01 and Other amnesia R41.3 [facility] [employer] [facility] [address] [place] [address] 02/20/2024 Agnieszka Sorenson MDD (major depressiv e disorder), recurrent episode, mild F33.0 ; Generalized anxiety disorder F41.1 ; Primary insomnia F51.01 and Other amnesia R41.3 [facility] [employer] [facility] [address] [place] [address] 09/17/2024 Agnieszka Sorenson MDD (major depressiv e disorder), recurrent episode, mild F33.0 ; Generalized anxiety disorder F41.1 ; Primary insomnia F51.01 ; Other amnesia R41.3 and Encounter for screening for cardiovascular disorders Z13.6 [facility] [address] [place] [address] 11/08/2024 Agnieszka Therroxane Encounter for screen ing for depression Z13.31 ; MDD (major depressive disorder), recurrent episode, mild F33.0 ; Encounter for screening for cardiovascular disorders Z13.6 ; Dietary counseling and surveillance Z71.3 ; Generalized anxiety disorder F41.1 ; Primary insomnia F51.01 and Other amnesia R41.3 [facility] [address] [facility] [address] [place] [address] 04/10/2024 Anoop Robles [place] [address] [facility] [address] [place] [address] 08/06/2024 Agnieszka Sorenson [place] [address] [facility] [address] [place] [address] 11/09/2024 Agnieszka Sorenson Assessments Encounter Date Diagnosis (ICD [...] depression - 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 has hx AFib Discuss and educated on ALL RX patient reported Remeron 15 mg at bedtime for depression and anxiety not helping as much as before and would like to increase dose Increase Remeron 30 mg at bedtime Viibyrd 40 mg daily- hx depression and [...] impairment - patient does not want medications SLUMS= 28 11/08/24 See nuerologist uses walker hx fall 6 weeks ago and seen ER and CT head monitor 02/20/2024 Other referral to the local chapter or national office of the Alzheimer's Association (4-617-508-390 0; http://www.alz .org), the Alzheimer's Disease Education and Referral Center (ADEAR) (6-079-106-438 0; http://www.halley .nih.gov/Alzjackelin stern/), 1. 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 Memory impairment - monitor 11/08/2024 Other referral to the local chapter or national office of the Alzheimer's Association (7-148-844-804 0; http://www.alz .org), the Alzheimer's Disease Education and Referral Center (ADEAR) (6-621-178-852 0; http://www.halley .nih.gov/Alzhe jarred/), 1. 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 has hx AFib Discuss and educated on ALL RX patient reported Remeron 15 mg at bedtime for depression and anxiety not helping as much as before and would like to increase dose Increase Remeron 30 mg at bedtime Viibyrd 40 mg daily- hx depression and [...] impairment - patient does not want medications SLUMS= 28 6/5/25 See nuerologist uses walker hx fall 6 weeks ago and seen ER and CT head monitor Plan Of Treatment Next Appt Details Provider Name:Agnieszka Sorenson , 02/28/2025 02:00:00 PM, [address], [place], [address], Insurance Providers Payer Name Payer Address Payer Phone Subscriber Number Group Number Insured Name Patient Relationship to Insured Coverage Start Date Coverage End Date Medicare-I l Medicare [address] [place] [phone] [id number] FINA ACKERMAN Self - patient is the insured Aetna [address] [place] [address] [id number] FINA ACKERMAN Self - patient is the insured Medical (General) History Medical History History ICD Code Problems: Acute COVID-19 Generalized anxiety disorder Memory impairment Primary insomnia Recurrent major depression , AFIB BILARY Cirrohosis Surgical History Surgery Date(Month/Year) Removal of gallbladder (26073) Hysterectomy (99591) Cataract surgery (82851) Appendectomy (28670) Other
--- OUTSIDE RECORDS SUMMARY | 2024-12-21 17:07 | XMS_ITS ---
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 Role Phone Kirby Rodarte Primary Care Provider UnavailSophie Cool Unavailable [phone] Mackenzie Obando Unavailable [phone] REASON FOR VISIT [facility] follow-up Encounters Encounter Location Date Provider Diagnosis [facility] [address] [place] [address] 08/10/2023 Mackenzie Obando Plan Of Treatment No Information Progress Notes * Bart ACKERMANOB:1940 (84 yo F)Acc No.[id number]:08/10/2023 Progress Notes Patient: Ibeth WARDyce Provider: Robin [...] Electronic signature of Cony Obando MD on 12/21/2024 at 05:06 PM CDT Sign off status: Pending * Provider: Robin Obando MD Date: 0 08/10/2023 Generated for Giovanni corbin/Latricia/Praful on: 0 12/21/2024 05:06 PM CDT
--- OUTSIDE RECORDS SUMMARY | 2024-12-21 17:07 | XMS_ITS ---
Author Organization [facility] [place] ([address]) Address [address] [place] [address] Care Team Providers Care Potline Monitor Name Role Phone Kirby Rodarte Primary Care Provider UnavailSophie Cool Unavailable [phone] [facility], Provider Unavailable Unavailab le Allergies Allergen (clinical drug ingredient) Drug/Non Drug Allergy documented on EMR Reaction Allergy Type Onset Date Status CONTRAST DYE (uncoded) other reaction Allergy Active codeine Codeine stomach upset Drug Allergy Act francesca REASON FOR VISIT [facility] Conversion Encounter Medications Medication SIG (Take, [...] Encounters Encounter Location Date [facility] [place] [address] 11/19/2023 Provider [place] Allergic rhinitis due to [...] Notes * Bart ACKERMANOB:1940 (84 yo F)Acc No.[id number]:11/19/2023 Patient: Jenniffer WARD Provider: David Jeffers :1940 A ge:83 Y S ex:Female Date:11/19/2023 Address:[address] [place] [address], [address] Pcp:Kirby Rodarte Subjective: * Chief Complaints: * [facility] . [facility] Conversion Encounter. * Medical History: * [...] Electronic signature of Juan Luis SHAHID-Migration on 12/21/2024 at 05:06 PM CDT Sign off status: Pending * Provider: David coyne Migration Date: 11/19/2023 Generated for Giovanni corbin/Latricia/Praful on: 12/21/2024 05:06 PM CDT
--- OUTSIDE RECORDS SUMMARY | 2024-12-21 17:07 | XMS_ITS | Clinical Summary ---
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 This disclosure is being madepursuant to the Care Everywhere program and may not contain all information available regarding this patient. 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 Gender Identity Not on file Sexual Orientation [...] 11:30 AM CDT Height 165.1 cm (5' 5) 09/06/2017 11:30 AM CDT Body Mass Index [...] season) 2024 DEPRESSION SCREENING 06/06/2024 INFLUENZA VACCINE (#1) 2025 HEPATITIS B VACCINE Aged Out No [...] this topic Medical Devices Implanted Type Area Intercell Connector Placer Device Identifier Shelf Expiration Date Model / Serial / Lot Wire K .035 X 5.5in Implanted:Qty: 2 on 09/06/2017 by Venice Dueñas MD at [facility] Left: Finger [place] [employer] [id number] 00 / / Description:left index finge r Insurance MEDICARE [facility] Care Teams Vice President Of Manufacturing Relationship Specialty Start Date End Date Hasmukh Gonzalez MD PCP - General Internal Medicine 08/18/17
--- NOTE | 2024-12-21 19:06 | ECG_ITS ---
Test Date: 2024-12-21 19:24:52 Measurements Intervals [place] Rate: 68 P: 0 [place]: 0 QRS: -40 QRSD: 121 T: 108 QT: 419 QTc: 446 Interpretive Statements ATRIAL FIBRILLATION LEFT AXIS DEVIATION [QRS AXIS < -30] LEFT BUNDLE BRANCH BLOCK [120+ ms QRS DURATION, 80+ ms Q/S IN V1/V2, 85+ ms R IN I/aVL/V5/V6] ABNORMAL ECG Compared to ECG 07/31/2024 19:03:39 NO SIGNIFICANT CHANGE Electronically Signed On 12-22-2024 08:48:10 CDT by Filipe Jackson M.D.
[2024-12-21 19:33] LABS: Hematocrit 39.3 % (37.0-47.0); Hemoglobin 12.2 g/dL (12.0-15.0); Immature Granulocyte Percent A 0.5 % (0-0.5); Lymphocytes Absolute Auto 0.48 K/mm3 (0.9-3.2); Mean Corpuscular HGB Conc 31.0 g/dl (32-36); Mean Corpuscular Hemoglobin 29.0 pg (26-34); Mean Corpuscular Volume 93.6 fl (80-100); Nucleated Red Blood Cells Absolute Auto 0.000 K/mm3 (0.0-0.012); Nucleated Red Blood Cells Perc 0.0 % (0.0-0.2); Platelet Count Result 263 k/mm3 (150-375); Red Blood Count 4.20 M/mm3 (4.2-5.4); White Blood Count 7.4 K/mm3 (4.5-10.0)
[2024-12-21 19:46] LABS: Alanine Aminotransferase 13 U/L (6-35); Albumin Level 3.4 g/dL (3.5-5.1); Alkaline Phosphatase 239 U/L (38-126); Anion Gap 4 mmol/L (4-12); Aspartate Amino Transferase 32 U/L (14-36); Bilirubin,Total 0.7 mg/dL (0.2-1.3); Blood Urea Nitrogen 16 mg/dL (7-17); Calcium 9.0 mg/dL (8.4-10.2); Carbon Dioxide 27 mmol/L (22-30); Chloride 104 mmol/L (98-107); Estimated CRCL calculation 40 ml/min; Estimated Glomerular Filt Rate 54; Glucose 92 mg/dL (65-110); Magnesium 2.1 mg/dL (1.6-2.3); Potassium 4.0 mmol/L (3.4-5.0); Sodium 135 mmol/L (137-145); Total Protein 6.1 g/dL (6.3-8.2)
--- NOTE | 2024-12-21 19:49 | ED_ITS ---
HPI - Extremity Problem General Chief complaint: Extremity Problem,Nontraumatic Stated complaint: leg swelling Time Seen by Provider: 12/21/24 19:05 History of Present Illness HPI Narrative: 84-year-old female with a past medical history including congestive heart failure and hypertension. She takes Lasix and something for blood pressure but she is not sure what. She presents to the emergency department with bilateral lower extremity leg swelling worsening over last few weeks. She has a history of kidney disease as well but takes 1 dose of Lasix in the morning. She called her regular doctor who told her to go the emergency department for evaluation. She occasionally goes to the ER for leg swelling according to her and gets ?drainage.In the ER. Patient denies any chest pain but does state that she is mildly more short of breath with exertion but not at rest. No chest pain or chest pressure with exertion. No nausea, vomiting, headache, vision changes, loss of consciousness, syncope. Leg swelling is symmetric, no history of DVT. No calf pain or asymmetry. No redness or fever. She was otherwise in her normal state of health. Related Data Home Medications ?Medication ?Instructions ?Recorded ?Confirmed ?Last Taken ?Type vilazodone 20 mg tablet 20 mg PO DAILY 02/20/23 11/29/24 Unknown History mirtazapine 7.5 mg tablet mg PO 10/02/24 11/29/24 Unknown History levothyroxine 200 mcg tablet mcg PO 10/16/24 11/29/24 Unknown History potassium chloride 20 mEq 30 meq PO DAILY 10/24/24 11/29/24 Unknown History tablet,extended release Allergies Allergy/AdvReac Type Severity Reaction Status Date / Time Gadolinium-Containing Allergy Severe Chest Pain Verified 11/29/24 07:44 Contrast Medi adhesive tape Allergy Mild Rash Verified 11/29/24 07:44 ioversol Allergy Unknown Other Verified 11/29/24 07:44 morphine Allergy Unknown Liver Verified 11/29/24 07:44 function tests abnormal acetaminophen AdvReac Severe kidney Verified 11/29/24 07:44 stop working tramadol AdvReac Severe Other Verified 11/29/24 07:44 trazodone AdvReac Intermediate Edema Verified 11/29/24 07:44 benzonatate AdvReac Unknown Headache Verified 11/29/24 07:44 codeine AdvReac Unknown Headache Verified 11/29/24 07:44 Review of Systems 2 Review of Systems: As reviewed above in HPI [facility] Past Medical History Medical History Primary biliary cirrhosis BMI 28.0-28.9,adult Urinary catheter insertion/adjustment/removal Anxiety and depression Shingles Meniere disease Sjogren syndrome Rectocele Interstitial pulmonary fibrosis Vitamin D deficiency PAF (paroxysmal atrial fibrillation) CKD (chronic kidney disease) Hyperlipidemia Hypothyroidism Hypertension HOCM (hypertrophic obstructive cardiomyopathy) Vertigo Actinic keratosis History of basal cell carcinoma (BCC) Chin Surgical History Surgical History History of bladder surgery bladder suspension History of knee replacement - 1997, 1998, 1999, 2001 History of cholecystectomy 1996 H/O: hysterectomy 1973 History of tubal ligation 1972 Family History Family History Father Hypertension Cerebrovascular accident, Onset Age: 70 Patient's father is Mother Hypertension Family history of aortic aneurysm, Onset Age: 81 Sibling Hypertension Family history of diabetes mellitus in first degree relative Family history of coronary artery disease Family history of premature coronary heart disease Patient's brother is Family history of malignant neoplasm of brain Family history of type 2 diabetes mellitus Sibling Diabetes mellitus Heart disease Advanced hepatic cirrhosis Social History Social History Social History: Caffeine-daily Smoking status: Former smoker Second hand tobacco smoke exposure: Yes Alcohol intake: never Substance use: never Substance use type: does not use Other substance usage details: CBD gummies Do You Feel Safe in your Home?: Yes Lack of Transportation: No Lack of Food: Never True Current Housing: I Have Housing Concerned About Future Housing: No Difficulty Paying Gas/Electric Bills: No Difficulty Paying for Meds: No Currently Unemployed: No Education: High School Diploma/GED Difficulty w/ Childcare or Family Care: No Living arrangements: with family Occupation/Education: retired Additional occupation/education comments: [employer]. Gender identity (if verbalized by the patient): Female Spiritual care concerns: No Exam 2 Narrative: GENERAL: [Well-appearing, well-nourished, and in no acute distress.] HEAD: [Normocephalic, atraumatic.] EYES: [PERRLA and EOMI.] ENT: Nares clear, no rhinorrhea or epistaxis. Mucous membranes moist. NECK: Supple. CHEST: [Clear to auscultation. No respiratory distress.] HEART: [Regular rate and rhythm]. No murmur heard. [Normal peripheral pulses.] ABDOMEN: [Soft, nondistended], [nontender], [No rigidity or guarding] EXTREMITIES: Normal range of motion. 2+ bilateral edema SKIN: Warm, dry, no rash. NEURO: [No focal deficits]. Alert and oriented [x3.] PSYCH: [Normal mood and affect.] Course Vital Signs Vital signs: Vital Signs Temperature 36.6 C 12/21/24 17:07 Pulse Rate 70 12/21/24 17:07 Respiratory Rate 18 12/21/24 17:07 Blood Pressure 162/85 H 12/21/24 17:07 Pulse Oximetry 95 12/21/24 17:07 Oxygen Delivery Room Air 12/21/24 17:07 Temperature 36.7 C 12/21/24 23:33 Pulse Rate 69 12/21/24 23:33 Respiratory Rate 34 H 12/21/24 23:33 Blood Pressure 147/75 H 12/21/24 23:33 Pulse Oximetry 95 12/21/24 23:33 Oxygen Delivery Room Air 12/21/24 19:04 MDM - Extremity (Nontraumatic) MDM Narrative Medical decision making narrative: 84-year-old female with a past medical history including congestive heart failure and hypertension. She takes Lasix and something for blood pressure but she is not sure what. She presents to the emergency department with bilateral lower extremity leg swelling worsening over last few weeks. She has a history of kidney disease as well but takes 1 dose of Lasix in the morning. She called her regular doctor who told her to go the emergency department for evaluation. She occasionally goes to the ER for leg swelling according to her and gets ?drainage.In the ER. Patient denies any chest pain but does state that she is mildly more short of breath with exertion but not at rest. No chest pain or chest pressure with exertion. No nausea, vomiting, headache, vision changes, loss of consciousness, syncope. Leg swelling is symmetric, no history of DVT. No calf pain or asymmetry. No redness or fever. She was otherwise in her normal state of health. Patient is not any acute distress but does have obvious symmetric pitting edema to the legs consistent with mild to moderate CHF exacerbation given her complaints of subjective dyspnea with exertion. She has clear breath sounds however and is saturating 100% on room air. No tachycardia but she is mildly hypertensive. Awake alert oriented with no neurological findings or concerns of chest pain. She has symmetric strong pulses. CHF exacerbation likely going on but other problems such as electrolyte disturbances, pleural effusions, pulmonary edema, hypertensive heart failure hypertensive emergency less likely. CBC, CMP, magnesium, BNP, chest x-ray and EKG obtained. Will obtain baseline creatinine and proceed with diuresis based on results. Patient's workup shows no leukocytosis or anemia. Normal platelet count. Electrolytes are unremarkable. Normal creatinine, normal glucose, normal LFTs. Chronically elevated alk-phos. BNP elevated at 3560. Patient given 80 mg of IV Lasix with good effect and patient is able urinate. Urinalysis obtained shows no infection. Patient is improved and her x-ray just shows minor interstitial edema but no pleural effusions. Plan at this time will be for discharge home with b.i.d. dosing of Lasix instead of her once daily dose. She was comfortable with the plan and will follow-up with regular doctor. Lab Data 12/21/24 19:26 12/21/24 19:26 Labs: Lab Results 12/21/24 12/21/24 Range/Units 19:26 22:14 WBC 7.4 (4.5-10.0) K/mm3 RBC 4.20 (4.2-5.4) M/mm3 Hgb 12.2 (12.0-15.0) g/dL Hct 39.3 (37.0-47.0) % MCV 93.6 (80-100) fl MCH 29.0 (26-34) pg MCHC 31.0 L (32-36) g/dl RDW 14.8 H (11.5-14.5) % Plt Count 263 (150-375) k/mm3 MPV 9.3 (7.4-10.4) fl Immature Gran % (Auto) 0.5 (0-0.5) % Neut % (Auto) 77.3 H (45.5-73.1) % Lymph % (Auto) 6.5 L (18.3-44.2) % [place] % (Auto) 11.3 H (2.6-8.5) % Eos % (Auto) 4.0 (0-4.4) % Baso % (Auto) 0.4 (0.2-1.2) % Lymph # (Auto) 0.48 L (0.9-3.2) K/mm3 [place] # (Auto) 0.8 H (0.1-0.6) K/mm3 Eos # (Auto) 0.3 (0-0.3) K/mm3 Baso # (Auto) 0.0 (0.0-0.1) K/mm3 Abs Immat Gran (auto) 0.04 H (0.00-0.031) K/mm3 Absolute Neuts (auto) 5.7 (1.3-6.7) K/mm3 Absolute Nucleated RBC 0.000 (0.0-0.012) K/mm3 Nucleated RBC % 0.0 (0.0-0.2) % Sodium 135 L (137-145) mmol/L Potassium 4.0 (3.4-5.0) mmol/L Chloride 104 (98-107) mmol/L Carbon Dioxide 27 (22-30) mmol/L Anion Gap 4 (4-12) mmol/L BUN 16 (7-17) mg/dL Creatinine 0.99 (0.7-1.0) mg/dL Estim Creat Clear Calc 40 ml/min Estimated GFR 54 L (59 - ) Glucose 92 (65-110) mg/dL Calcium 9.0 (8.4-10.2) mg/dL Magnesium 2.1 (1.6-2.3) mg/dL Total Bilirubin 0.7 (0.2-1.3) mg/dL AST 32 (14-36) U/L ALT 13 (6-35) U/L Alkaline Phosphatase 239 H (38-126) U/L NT-Pro-B Natriuret Pep 3560 H (19.9-100) pg/mL Total Protein 6.1 L (6.3-8.2) g/dL Albumin 3.4 L (3.5-5.1) g/dL Urine Color Yellow (Yellow) Urine Appearance Clear (Clear) Urine pH 7.0 (5.0-9.0) Ur Specific [place] 1.005 (1.001-1.035) Urine Protein Negative (Negative) mg/dL Urine Glucose (UA) Negative (Negative) mg/dL Urine Ketones Negative (Negative) mg/dL Ur Blood (Man) Negative (Negative) Urine Nitrate Negative (Negative) Urine Bilirubin Negative (Negative) Urine Urobilinogen 0.2 (<2.0) mg/dL Leukocyte Esterase Rfl Trace H (Negative) REX/UL Urine RBC 0-2 (0-2) /hpf Urine WBC 0-5 (0-3) /hpf Ur Squamous Epith Cells None seen (Few) /hpf Urine Bacteria None seen /hpf Urine Casts 0-2 Discharge Plan Discharge Clinical Impression: CHF exacerbation, Localized swelling of left lower extremity Patient Disposition: Home Condition: Stable Instructions: Antibiotic Form, Heart Failure (DC) Additional Instructions: Your signs and symptoms are consistent with a CHF exacerbation and we have given you intravenous Lasix at a high dose. Next steps are to increase her Lasix dose at home including taking your pill once in the morning and once at night. Do this for a few days and follow-up with regular primary care provider to see if you have any improvement in symptoms. If you have any worsening symptoms or new/emergent concerns return to the ED. your urine shows no signs of infection and your labs are appearing normal. Patient Language: Nicaraguan Prescriptions: No Action vilazodone 20 mg Tablet 20 mg PO DAILY Rx Instructions: must administer with a meal/food furosemide 40 mg tablet 20 mg PO TID Qty: 90 3RF mirtazapine 7.5 mg tablet PO potassium chloride 20 mEq tablet extended release 30 meq PO DAILY hydrocortisone 10 mg tablet 10 mg PO BID Qty: 14 0RF levothyroxine 200 mcg tablet PO ursodiol 500 mg tablet 500 mg PO BID Qty: 180 2RF metoprolol succinate 50 mg tablet extended release 24 hr See Rx Instructions .ROUTE .COMPLEX Qty: 180 0RF Dose Instruction: TAKE 1 TABLET BY MOUTH TWICE A DAY Rx Instructions: TAKE 1 TABLET BY MOUTH TWICE A DAY amoxicillin 250 mg capsule 250 mg PO Q8H Qty: 21 0RF losartan 25 mg tablet 25 mg PO DAILY Qty: 90 1RF Follow-up/Referrals: Kartik Hines DO [Primary Care Provider] - Time of Disposition: 23:40
--- OUTSIDE RECORDS SUMMARY | 2024-12-21 19:54 | XMS_ITS | Continuity of Care Document ---
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 [address], [address], [place], [place], [id number], [place]. tel:[phone] Referring Provider: Pamela Valle, [address], [place], [address]. tel:[phone] wadsworth Provider: Lucita Laura, [address] [place] [address], [address]. tel:[phone] Office/outpat ient Visit, Est [facility], [address], [place], [place], [id number], [place] tel:[phone] [facility] No Information Sep- 4-201 0 Odilia Santiago. [address], [address], [place], [address], [place]. tel:[phone] [facility], [address], [place], [place], [address], [place] tel:[phone] [facility] No Information Apr-2 4-200 9 Odilia Santiago. [address], [address], [place], [address], [place]. tel:[phone] [facility], [address], [place], [place], [address], [place] tel:[phone] [facility] No Information Dec-2 9-200 8 [facility] . [address], [address], [id number], [place]. tel:[phone] Consulting Provider: Mariah Bolden, [address] [place] [address], [address]. tel:[phone] [facility], [address], [place], [place], [address], [place] tel:[phone] [facility] No Information Aug-0 8-200 8 [facility] . [address], [address], [place], [place], [address], [place]. tel:[phone] Consulting Provider: Mariah Bolden, [address] [place] [address], [facility]. tel:[phone] [facility], [address], [place], [place], [id number], tel:[phone] [facility] No Information Jan-0 8-200 8 Odilia Evans [address] , [address], [place], [place], [facility], . tel:[phone] [facility], [address], [place], [place], [id number], tel:[phone] [facility] No Information 0 2200 8 [facility] . [address], [address], [place], [place], [address], . tel:[phone] Referring Provider: Pamela Valle, [address], [place], [place], [facility]. tel:[phone] g Provider: Mariah Bolden, [address] [place], [place], [facility]. tel:[phone] [facility], [address] [place] [address] [address], [place], [place], [address], tel:[phone] [facility] No Information 0 1200 8 Odilia Evans [address] , [address], [place], [place], [facility], . tel:[phone] [facility], [address] [place] [address] [address], [place], [place], [address], tel:[phone] [facility] No Information 200 7 Odilia Evans [address] , [address], [place], [place], [facility], . tel:[phone] Family History Family Member Type Diagnosis Age [...]
--- OUTSIDE RECORDS SUMMARY | 2024-12-21 19:54 | XMS_ITS | Clinical Summary ---
Author Organization [facility] Address [facility] [facility] [place] [address] Care Team Providers Care Store Shopper Name Role Phone Hasmukh Gonzalez MD Primary Care Provider Unavail able Source Comments [facility],non-owned Affiliates and Associated Physician Practices is amultiple site organization consisting of ambulatory clinics and hospital sitesin [place], [place], [place] and [place]. This disclosure is being madepursuant to the Care Everywhere program and may not contain all information available regarding this patient. Last updated 18.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
[2024-12-21 19:56] LABS: NT Pro B Type Natriuretic Pept 3560 pg/mL (19.9-100)
[2024-12-21] MEDS: FUROSEMIDE INJ 100 MG/10 ML VIAL 80 MG IV PUSH (21:01)
[2024-12-21 22:26] LABS: Add Urine Microscopic? YES; Appearance Urine Clear (Clear); Glucose Urine UA Negative (Negative); Leukocyte Esterase Ur Trace LEU/UL (Negative); Nitrate Urine Negative (Negative); Non Pathogenic Casts 0-2; Specific Grav Ur 1.005 (1.001-1.035)
== END 2024-12-22 00:22 | disposition home or self-care (01) ==
PROVIDERS: Emergency Provider Student in an Organized Health Care Education/Training Program; PCP Internal Medicine
DX: I13.0 Hypertensive heart and chronic kidney disease with heart failure and stage 1 through stage 4 chronic kidney disease, or unspecified chronic kidney disease (principal); I50.9 Heart failure, unspecified; R22.42 Localized swelling, mass and lump, left lower limb; N18.9 Chronic kidney disease, unspecified; I48.0 Paroxysmal atrial fibrillation; E55.9 Vitamin D deficiency, unspecified; K74.3 Primary biliary cirrhosis; H81.09 Meniere's disease, unspecified ear; J84.10 Pulmonary fibrosis, unspecified; M35.00 Sjogren syndrome, unspecified; F41.9 Anxiety disorder, unspecified; F32.A Depression, unspecified; Z96.659 Presence of unspecified artificial knee joint; Z85.828 Personal history of other malignant neoplasm of skin; Z87.891 Personal history of nicotine dependence; Z90.49 Acquired absence of other specified parts of digestive tract; Z90.710 Acquired absence of both cervix and uterus; Z79.899 Other long term (current) drug therapy; I48.91 Unspecified atrial fibrillation; I44.7 Left bundle-branch block, unspecified
CPT/HCPCS: 36415; 71045; 80053; 81001; 83735; 83880; 85025; 93005; 96374; 99284; J1938

== ENCOUNTER 2024-12-31 10:38 | Emergency (ER) | payer MEDICARE, SELFPAY ==
[2024-12-31 10:43] VITALS: BP 110/84; PULSE 110; RESP 24; TEMP 37.1; O2SAT 89
[2024-12-31 10:45] VITALS: PULSE 110; RESP 23; O2SAT 86
[2024-12-31] MEDS: IPRATROPIUM 0.5 MG/ALBUTEROL SULFATE 2.5 MG AMPUL.NEB 3 ML INHALATION (10:50)
--- NOTE | 2024-12-31 10:50 | ED_ITS ---
HPI - SOB/Dyspnea General Chief Complaint: Shortness of Breath/Dyspnea Stated Complaint: SOB Time Seen by Provider: 12/31/24 10:40 Source: patient and RN notes reviewed Mode of arrival: ambulatory Limitations: no limitations History of Present Illness HPI Narrative: 84-year-old female presents Express Care complaining of shortness of breath for approximately 4 days. Patient also reports cough and tactile fevers. Patient was sent from her PCP office to come here for further evaluation. Patient reports shortness of breath at rest. Patient has a history of heart failure, chronic kidney disease, pneumonia, AFib. Patient reports feeling less short of breath when she is sitting upright. Patient denies any chest pain, leg swelling, nausea, vomiting, or any other symptoms. Related Data Home Medications ?Medication ?Instructions ?Recorded ?Confirmed ?Last Taken ?Type levothyroxine 200 mcg tablet mcg PO 10/16/24 11/29/24 Unknown History potassium chloride 20 mEq 30 meq PO DAILY 10/24/24 11/29/24 Unknown History tablet,extended release furosemide 40 mg tablet 20 mg PO DAILY 12/31/24 12/31/24 Unknown History vilazodone 40 mg tablet 40 mg PO DAILY 12/31/24 12/31/24 Unknown History Allergies Allergy/AdvReac Type Severity Reaction Status Date / Time Gadolinium-Containing Allergy Severe Chest Pain Verified 12/31/24 14:48 Contrast Medi adhesive tape Allergy Mild Rash Verified 12/31/24 14:48 ioversol Allergy Unknown Other Verified 12/31/24 14:48 morphine Allergy Unknown Liver Verified 12/31/24 14:48 function tests abnormal acetaminophen AdvReac Severe kidney Verified 12/31/24 14:48 stop working tramadol AdvReac Severe Other Verified 12/31/24 14:48 trazodone AdvReac Intermediate Edema Verified 12/31/24 14:48 benzonatate AdvReac Unknown Headache Verified 12/31/24 14:48 codeine AdvReac Unknown Headache Verified 12/31/24 14:48 Review of Systems Review of Systems: CONSTITUTIONAL: Positive for tactile fever. Negative for chills, or sweats. EYES: Denies visual changes, redness, or discharge. ENT: Denies rhinorrhea, congestion, sore throat, or otalgia. CARDIOVASCULAR: Denies chest pain, palpitations, dizziness, lightheadedness, or edema. RESPIRATORY: Positive for cough, wheezing, and dyspnea. GASTROINTESTINAL: Denies abdominal pain, nausea, vomiting, or diarrhea. GENITOURINARY: Denies dysuria or hematuria. SKIN: Denies rash or itching. MUSCULOSKELETAL: Denies back pain, joint pain, or myalgia. NEUROLOGIC: Denies headache, numbness, or weakness. PSYCHIATRIC: Denies anxiety or depression. All other systems reviewed are negative, except as documented in HPI. [facility] Past Medical History Medical History Primary biliary cirrhosis BMI 28.0-28.9,adult Urinary catheter insertion/adjustment/removal Anxiety and depression Shingles Meniere disease Sjogren syndrome Rectocele Interstitial pulmonary fibrosis Vitamin D deficiency PAF (paroxysmal atrial fibrillation) CKD (chronic kidney disease) Hyperlipidemia Hypothyroidism Hypertension HOCM (hypertrophic obstructive cardiomyopathy) Vertigo Actinic keratosis History of basal cell carcinoma (BCC) Chin Surgical History Surgical History History of bladder surgery bladder suspension History of knee replacement - 1997, 1998, 1999, 2001 History of cholecystectomy 1996 H/O: hysterectomy 1974 History of tubal ligation 1973 Family History Family History Father Hypertension Cerebrovascular accident, Onset Age: 70 Patient's father is Mother Hypertension Family history of aortic aneurysm, Onset Age: 81 Sibling Hypertension Family history of diabetes mellitus in first degree relative Family history of coronary artery disease Family history of premature coronary heart disease Patient's brother is Family history of malignant neoplasm of brain Family history of type 2 diabetes mellitus Sibling Diabetes mellitus Heart disease Advanced hepatic cirrhosis Social History Social History Social History: Caffeine-daily Smoking status: Former smoker Second hand tobacco smoke exposure: Yes Alcohol intake: never Substance use: never Substance use type: does not use Other substance usage details: CBD gummies Do You Feel Safe in your Home?: Yes Lack of Transportation: No Lack of Food: Never True Current Housing: I Have Housing Concerned About Future Housing: No Difficulty Paying Gas/Electric Bills: No Difficulty Paying for Meds: No Currently Unemployed: No Education: Associate Degree Difficulty w/ Childcare or Family Care: No Living arrangements: with family Occupation/Education: retired 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 Gender identity (if verbalized by the patient): Female Spiritual care concerns: No Comments At the time of my signature, I reviewed and agree with the nursing past medical, surgical, social, and family history. There is no relevant family history pertinent to the patient complaint. Exam Narrative: GENERAL: This is a well-nourished, well-developed adult, in respiratory distress. They are non ill-appearing, nontoxic appearing. HEAD: normocephalic, atraumatic. EYES: Sclera clear/white. Conjunctiva normal. Vision is grossly intact. Extraocular movements intact EARS: External ears normal, Hearing grossly intact. NOSE: External nose normal THROAT: Mucous membranes moist, NECK: Neck supple, CARDIOVASCULAR: Irregular rate and irregular rhythm without murmurs, gallops, or rubs. RESPIRATORY: Clear to auscultation. Breath sounds equal bilaterally. Expiratory wheezes heard throughout. Respiratory rate tachypneic, respiratory effort is labored, intercostal retractions and accessory muscle use. Patient able speak in full sentences. SKIN: warm, Dry, intact with no suspicious lesions or rash, good texture and turgor. NEURO: awake, alert, and oriented to person, place and time. There were no obvious focal neurologic abnormalities. EXTREMITIES: No joint tenderness, effusion, or edema noted. BACK: Nontender without deformity. Course Course Emergency Course: Portions of this record may have been created with voice recognition software Level of Care: Express Care Visit Vital Signs Vital signs: Vital Signs Temperature 98.7 F 12/31/24 10:43 Pulse Rate 110 H 12/31/24 10:43 Respiratory Rate 24 H 12/31/24 10:43 Blood Pressure 110/84 12/31/24 10:43 Pulse Oximetry 89 L 12/31/24 10:43 Oxygen Delivery Room Air 12/31/24 10:43 Temperature 98.7 F 12/31/24 10:43 Pulse Rate 110 H 12/31/24 10:45 Respiratory Rate 23 H 12/31/24 10:45 Blood Pressure 110/84 12/31/24 10:43 Pulse Oximetry 86 L 12/31/24 10:45 Oxygen Delivery Room Air 12/31/24 10:43 Reviewed Transfer Transfered to: [facility] Transfer rationale: Shortness of breath, respiratory distress, low oxygen saturations, patient requiring higher level care Accepting physician: Dr. Coley MDM - SOB/Dyspnea MDM Narrative Medical decision making narrative: Patient oxygen saturation low on room air. Patient is in acute respiratory distress. Patient given oxygen with improved shortness of breath symptoms. Patient Given DuoNeb for wheezing. Given patient's symptoms, it is recommend the patient seek a higher level care and proceed immediately to the emergency department. Patient is agreeable to go to [facility]. Patient agreeable to go by [facility] ambulance. EMS contacted. Report called over to [facility] and spoke to Dr. Coley who is aware this patient and accepted the patient for transfer. Differential Diagnosis Differential diagnosis: Likely acute exacerbation of chronic obstructive airways disease, congestive heart failure, community acquired pneumonia and other (Atria l fibrillation, pulmonary embolism, respiratory distress, ARDS) Critical Care Time Critical Care Time Critical Care Time: No Discharge Plan Discharge Clinical Impression: Respiratory distress Patient Disposition: Acute Care Hospital Condition: Stable Patient Language: Algerian Prescriptions: No Action potassium chloride 20 mEq tablet extended release 40 meq PO DAILY levothyroxine 200 mcg tablet 200 mcg PO DAILY vilazodone 40 mg tablet 40 mg PO DAILY furosemide 40 mg tablet 20 mg PO DAILY ursodiol 500 mg tablet 500 mg PO BID Qty: 180 2RF metoprolol succinate 50 mg tablet extended release 24 hr See Rx Instructions .ROUTE .COMPLEX Qty: 180 0RF Dose Instruction: TAKE 1 TABLET BY MOUTH TWICE A DAY Rx Instructions: TAKE 1 TABLET BY MOUTH TWICE A DAY losartan 25 mg tablet 25 mg PO DAILY Qty: 90 1RF Follow-up/Referrals: Kartik Hines DO [Primary Care Provider] - Time of Disposition: 10:56
== END 2024-12-31 11:00 | disposition short-term general hospital (02) ==
PROVIDERS: PCP Internal Medicine
DX: R06.03 Acute respiratory distress (principal); Z87.891 Personal history of nicotine dependence; I12.9 Hypertensive chronic kidney disease with stage 1 through stage 4 chronic kidney disease, or unspecified chronic kidney disease; N18.9 Chronic kidney disease, unspecified; E55.9 Vitamin D deficiency, unspecified; I48.0 Paroxysmal atrial fibrillation; E78.5 Hyperlipidemia, unspecified; E03.9 Hypothyroidism, unspecified; I42.1 Obstructive hypertrophic cardiomyopathy; Z85.828 Personal history of other malignant neoplasm of skin; M35.00 Sjogren syndrome, unspecified; K74.3 Primary biliary cirrhosis; J84.89 Other specified interstitial pulmonary diseases
CPT/HCPCS: 94640; 99215; G0463

== ENCOUNTER 2024-12-31 11:19 | Inpatient (IN) | payer MEDICARE, SELFPAY ==
[2024-12-31] VITALS (15 sets, daily range): BP systolic 115–162; BP diastolic 63–118; PULSE 84–198; RESP 16–26; TEMP 36.4–36.9; O2SAT 96–100; BMI 28.8
--- NOTE | ~2024-12-31 | XR_ITS ---
XR chest 1V portable 12/31/2024 12:21 Indication: Shortness of breath Procedure: AP portable chest Comparison: Comparison to multiple prior studies sequentially, with oldest reviewed study dated 04/06. Findings: Cardiomegaly with pulmonary edema. No significant pleural effusion. No acute osseous abnorm ality. No pneumothorax. Impression: 1: Cardiomegaly with pulmonary edema. Reviewed, dictated and finalized at location B. Impression: 1: Cardiomegaly with pulmonary edema.
--- NOTE | ~2024-12-31 | XR_ITS ---
EXAMINATION: XR chest 1V portable Exam Date/Time: 01/02/2025 18:18 CDT HISTORY: fever Comparison: 12/31/2024. RESULT: Lines, tubes, and devices: Cholecystomy clips. Lungs and pleura: Increasing patchy groundglass opacity in the left upper lung, overlying stable mod erate diffuse reticular and scattered patchy groundglass opacities. Nodular opacity over the peripher al left upper lung, not present in the prior exam, likely artifactual. Minimal bilateral costophrenic angle blunting. Cardiomediastinal silhouette: Stable. Other: No acute osseous or upper abdominal finding. IMPRESSION: Increased left upper lung opacities may represent infection in the appropriate clinical context. Pulm onary edema. Small bilateral pleural effusions Reviewed, dictated and finalized at location K. IMPRESSION: Increased left upper lung opacities may represent infection in the appropriate clinical context. Pulmonary edema. Small bilateral pleural effusions
--- NOTE | 2024-12-31 11:29 | ECG_ITS ---
Test Date: 2024-12-31 11:34:21 Measurements Intervals [place] Rate: 90 P: 0 AK: 0 QRS: -43 QRSD: 129 T: 111 QT: 367 QTc: 451 Interpretive Statements ATRIAL FIBRILLATION LEFTWARD AXIS VOLTAGE CRITERIA FOR LLEFT VENTRICULAR HYPERTROPHY Electronically Signed On 01-01-2025 16:03:09 CDT by Jose De Jesus Beebe D.O
--- NOTE | 2024-12-31 11:38 | ED_ITS ---
HPI - General Adult General Chief complaint: Shortness of Breath/Dyspnea Stated complaint: SOB Time Seen by Provider: 12/31/24 11:19 History of Present Illness HPI narrative: 84-year-old female history of atrial fibrillation, CHF present to the emergency department for evaluation for worsening shortness breath over the course of the last week but acutely worsened over the last few days. Patient did call EMS and was found to be hypoxic in the 80s on room air. Patient arrived to the emergency department approximately 6 L and was saturating 100%. Patient was quickly titrated on to 2 L and is still saturating well. Patient was in no distress at time of initial evaluation. Patient does have lower extremity edema which she states is worse today than it has been a last 4 days. Patient denies any associated chest pain. Related Data Home Medications ?Medication ?Instructions ?Recorded ?Confirmed ?Last Taken ?Type levothyroxine 200 mcg tablet 200 mcg PO DAILY 10/16/24 12/31/24 Unknown History potassium chloride 20 mEq 40 meq PO DAILY 10/24/24 12/31/24 Unknown History tablet,extended release furosemide 40 mg tablet 20 mg PO DAILY 12/31/24 12/31/24 Unknown History vilazodone 40 mg tablet 40 mg PO DAILY 12/31/24 12/31/24 Unknown History Allergies Allergy/AdvReac Type Severity Reaction Status Date / Time Gadolinium-Containing Allergy Severe Chest Pain Verified 12/31/24 14:48 Contrast Medi adhesive tape Allergy Mild Rash Verified 12/31/24 14:48 ioversol Allergy Unknown Other Verified 12/31/24 14:48 morphine Allergy Unknown Liver Verified 12/31/24 14:48 function tests abnormal acetaminophen AdvReac Severe kidney Verified 12/31/24 14:48 stop working tramadol AdvReac Severe Other Verified 12/31/24 14:48 trazodone AdvReac Intermediate Edema Verified 12/31/24 14:48 benzonatate AdvReac Unknown Headache Verified 12/31/24 14:48 codeine AdvReac Unknown Headache Verified 12/31/24 14:48 Review of Systems 2 Review of Systems: All systems reviewed & are unremarkable except as noted in HPI and below PMFSH Past Medical History Medical History Primary biliary cirrhosis BMI 28.0-28.9,adult Urinary catheter insertion/adjustment/removal Anxiety and depression Shingles Meniere disease Sjogren syndrome Rectocele Interstitial pulmonary fibrosis Vitamin D deficiency PAF (paroxysmal atrial fibrillation) CKD (chronic kidney disease) Hyperlipidemia Hypothyroidism Hypertension HOCM (hypertrophic obstructive cardiomyopathy) Vertigo Actinic keratosis History of basal cell carcinoma (BCC) Chin Surgical History Surgical History History of bladder surgery bladder suspension History of knee replacement - 1997, 1998, 1999, 2001 History of cholecystectomy 1996 H/O: hysterectomy 1974 History of tubal ligation 1973 Family History Family History Father Hypertension Cerebrovascular accident, Onset Age: 70 Patient's father is Mother Hypertension Family history of aortic aneurysm, Onset Age: 81 Sibling Hypertension Family history of diabetes mellitus in first degree relative Family history of coronary artery disease Family history of premature coronary heart disease Patient's brother is Family history of malignant neoplasm of brain Family history of type 2 diabetes mellitus Sibling Diabetes mellitus Heart disease Advanced hepatic cirrhosis Social History Social History Social History: Caffeine-daily Smoking status: Former smoker Second hand tobacco smoke exposure: Yes Alcohol intake: never Substance use: never Substance use type: does not use Other substance usage details: CBD gummies Do You Feel Safe in your Home?: Yes Lack of Transportation: No Lack of Food: Never True Current Housing: I Have Housing Concerned About Future Housing: No Difficulty Paying Gas/Electric Bills: No Difficulty Paying for Meds: No Currently Unemployed: No Education: Associate Degree Difficulty w/ Childcare or Family Care: No Living arrangements: with family Occupation/Education: 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 EYES: PERRLA/EOMI, conjunctivae clear. NOSE: Normal no drainage EARS:TMS clear with good light reflex. THROAT: Pharynx clear, no exudate. NECK: Supple. No adenopathy, no masses. RESPIRATORY: Congestive lung sounds with expiratory wheeze CARDIOVASCULAR: Regular rate and rhythm without murmurs rubs or gallops. ABDOMINAL: Soft, nontender, nondistended, normal bowel sounds MUSCULOSKELETAL: Lower extremity edema NEURO: Alert. Cranial nerves II through XII intact. Good gait. Good coordination SKIN: Warm, dry. Normal Color Course Vital Signs Vital signs: Vital Signs Temperature 97.6 F 12/31/24 11:25 Pulse Rate 97 12/31/24 11:25 Respiratory Rate 24 H 12/31/24 11:25 Blood Pressure 154/118 H 12/31/24 11:25 Pulse Oximetry 99 12/31/24 11:25 Oxygen Delivery Nasal Cannula 12/31/24 11:25 Oxygen Flow Rate 2 12/31/24 11:25 Temperature 97.7 F 12/31/24 14:52 Pulse Rate 84 12/31/24 16:00 Respiratory Rate 26 H 12/31/24 14:45 Blood Pressure 136/63 12/31/24 14:52 Pulse Oximetry 96 12/31/24 14:52 Oxygen Delivery Nasal Cannula 12/31/24 14:45 Oxygen Flow Rate 2 12/31/24 14:45 Medical Decision Making [facility] Narrative Medical decision making narrative: 84-year-old female presents emergency department for evaluation for increased shortness of breath. Patient does have a new O2 requirement. Patient is currently afebrile with no leukocytosis hemoglobin of 13.0. Patient's INR is 1.2. No significant abnormalities on the patient's CMP patient does have an elevated proBNP of 8280, urine is negative for infection. Chest x-ray does show evidence of pulmonary edema. Patient does report increased sputum production. Urine cultures were ordered and patient was started on antibiotics in the emergency department. On initial evaluation patient did have some expiratory wheezes she was treated with nebulized albuterol. Was also treated with IV Lasix. Case was discussed with hospitalist and patient was accepted for admission. Differential Diagnosis Differential Diagnosis: COVID, RSV influenza, pneumonia, pulmonary edema, COPD Vital Signs Vital Signs: Vital Signs Temperature 97.6 F 12/31/24 11:25 Pulse Rate 97 12/31/24 11:25 Respiratory Rate 24 H 12/31/24 11:25 Blood Pressure 154/118 H 12/31/24 11:25 Pulse Oximetry 99 12/31/24 11:25 Oxygen Delivery Nasal Cannula 12/31/24 11:25 Oxygen Flow Rate 2 12/31/24 11:25 Temperature 97.7 F 12/31/24 14:52 Pulse Rate 84 12/31/24 16:00 Respiratory Rate 26 H 12/31/24 14:45 Blood Pressure 136/63 12/31/24 14:52 Pulse Oximetry 96 12/31/24 14:52 Oxygen Delivery Nasal Cannula 12/31/24 14:45 Oxygen Flow Rate 2 12/31/24 14:45 Lab Data Lab results reviewed: Yes I reviewed the patient's lab results. 12/31/24 11:39 12/31/24 11:39 Labs: Lab Results 12/31/24 12/31/24 Range/Units 11:39 12:03 WBC 9.8 (4.5-10.0) K/mm3 RBC 4.49 (4.2-5.4) M/mm3 Hgb 13.0 (12.0-15.0) g/dL Hct 41.1 (37.0-47.0) % MCV 91.5 (80-100) fl MCH 29.0 (26-34) pg MCHC 31.6 L (32-36) g/dl RDW 14.4 (11.5-14.5) % Plt Count 319 (150-375) k/mm3 MPV 9.5 (7.4-10.4) fl Immature Gran % (Auto) 0.5 (0-0.5) % Neut % (Auto) 85.2 H (45.5-73.1) % Lymph % (Auto) 4.0 L (18.3-44.2) % Morehouse % (Auto) 8.8 H (2.6-8.5) % Eos % (Auto) 1.0 (0-4.4) % Baso % (Auto) 0.5 (0.2-1.2) % Lymph # (Auto) 0.39 L (0.9-3.2) K/mm3 Morehouse # (Auto) 0.9 H (0.1-0.6) K/mm3 Eos # (Auto) 0.1 (0-0.3) K/mm3 Baso # (Auto) 0.1 (0.0-0.1) K/mm3 Abs Immat Gran (auto) 0.05 H (0.00-0.031) K/mm3 Absolute Neuts (auto) 8.4 H (1.3-6.7) K/mm3 Absolute Nucleated RBC 0.000 (0.0-0.012) K/mm3 Nucleated RBC % 0.0 (0.0-0.2) % Sodium 135 L (137-145) mmol/L Potassium 3.9 (3.4-5.0) mmol/L Chloride 104 (98-107) mmol/L Carbon Dioxide 24 (22-30) mmol/L Anion Gap 7 (4-12) mmol/L BUN 14 (7-17) mg/dL Creatinine 0.85 (0.7-1.0) mg/dL Estim Creat Clear Calc 40 ml/min Estimated GFR > 60 (59 - ) Glucose 112 H (65-110) mg/dL Lactic Acid 1.5 (0.7-2.0) mmol/L Calcium 8.5 (8.4-10.2) mg/dL Total Bilirubin 1.0 (0.2-1.3) mg/dL AST 49 H (14-36) U/L ALT 23 (6-35) U/L Alkaline Phosphatase 295 H (38-126) U/L C-Reactive Protein 12.2 H (<1.0) mg/dL NT-Pro-B Natriuret Pep 8280 H (19.9-100) pg/mL Total Protein 6.6 (6.3-8.2) g/dL Albumin 3.3 L (3.5-5.1) g/dL Imaging Data Radiologist's impression: Impressions Chest X-Ray 12/31/24 12:46 Impression: 1: Cardiomegaly with pulmonary edema. Discharge Plan Discharge Clinical Impression: Pneumonia, CHF (congestive heart failure) Patient Disposition: Still a Patient Condition: Serious
[2024-12-31] MEDS: ALBUTEROL SULFATE NEB 2.5 MG/3 ML INH 5 MG INHALATION (11:39)
[2024-12-31 11:48] LABS: Hematocrit 41.1 % (37.0-47.0); Hemoglobin 13.0 g/dL (12.0-15.0); Immature Granulocyte Percent A 0.5 % (0-0.5); Lymphocytes Absolute Auto 0.39 K/mm3 (0.9-3.2); Mean Corpuscular HGB Conc 31.6 g/dl (32-36); Mean Corpuscular Hemoglobin 29.0 pg (26-34); Mean Corpuscular Volume 91.5 fl (80-100); Nucleated Red Blood Cells Absolute Auto 0.000 K/mm3 (0.0-0.012); Nucleated Red Blood Cells Perc 0.0 % (0.0-0.2); Platelet Count Result 319 k/mm3 (150-375); Red Blood Count 4.49 M/mm3 (4.2-5.4); White Blood Count 9.8 K/mm3 (4.5-10.0)
--- OUTSIDE RECORDS SUMMARY | 2024-12-31 12:02 | XMS_ITS | Continuity of Care Document ---
Author Organization [facility] Address [address] [place] [address] Phone Care Team Providers Care Alterations Sewer Name Role Phone [facility] Unavailable [...] Diagnoses Date Provider Providers Copied on Encounter [facility], [address], [place], [place], [id number], [place] tel:[phone] [facility] No Information Feb- 5201 0 [facility] . [address], [address], [place], [place], [address], [place]. tel:[phone] Referring Provider: Pamela Valle, [address], [place], [address]. tel:[phone] wadsworth Provider: Lucita Laura, [address] [place] [address], [address]. tel:[phone] Office/outpat ient Visit, Est [facility] [place], [address], [place], [place], [id number], [place] tel:[phone] [facility] No Information Sep- 4-201 0 Odilia Santiago. [address], [address], [place], [address], [place]. tel:[phone] [facility], [address], [place], [place], [id number], [place] tel:[phone] [facility] No Information Apr-2 4-200 9 Odilia Santiago. [address], [address], [place], [address], [place]. tel:[phone] [facility], [address], [place], [place], [id number], [place] tel:[phone] [facility] No Information Dec-2 9-200 8 [facility] . [address], [address], [id number], [place]. tel:[phone] Consulting Provider: Mariah Bolden, [address] [place] [address], [address]. tel:[phone] [facility], [address], [place], [place], [id number], [place] tel:[phone] [facility] No Information Aug-0 8-200 8 [facility] . [address], [address], [place], [place], [address], [place]. tel:[phone] Consulting Provider: Mariah Bolden, [address] [place] [address], [facility]. tel:[phone] [facility], [address], [place], [place], [address], tel:[phone] [facility] No Information Jan-0 8-200 8 Odilia Evans [address] , [address], [place], [place], [facility], . tel:[phone] [facility], [address], [place], [place], [id number], tel:[phone] [facility] No Information 0 2200 8 [facility] . [address], [address], [place], [place], [id number], . tel:[phone] Referring Provider: Pamela Valle, [address], [place], [place], [facility]. tel:[phone] g Provider: Mariah Bolden, [address] [place], [place], [facility]. tel:[phone] [facility], [address] [place] [address] [address], [place], [place], [address], tel:[phone] [facility] No Information 0 1200 8 Odilia Evans [address] , [address], [place], [place], [facility], . tel:[phone] [facility], [address] [place] [address] [address], [place], [place], [address], tel:[phone] [facility] No Information 200 7 Odilia Evans [address] , [address], [place], [place], [facility], . tel:[phone] Family History Family Member Type Diagnosis Age [...]
--- OUTSIDE RECORDS SUMMARY | 2024-12-31 12:02 | XMS_ITS | Patient Health Record ---
Author Organization [facility] [place] ([address]) Address [address] [place] [address] Care Team Providers Care Orthodontist Vice President Name Role Phone Kirby Rodarte Primary Care Provider Sophie Pereyra Unavailable [phone] Allergies Allergen (clinical drug ingredient) Drug/Non Drug [...] Status Risk Notes Problem Chronic allergic conjunctivitis (37696975) Other chronic allergic conjunctivitis (H10.45) Active confirmed Problem Allergic rhinitis caused by pollen (disorder) (12401071) Allergic rhinitis due to pollen (J30.1) Active confirmed Problem Allergic rhinitis (00895619) Other allergic rhinitis (J30.89) Active confirmed Problem 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 confirmed Problem Allergic rhinitis caused by animal hair and dander (034072550752513) Allergic rhinitis due to animal (cat) (dog) hair and dander (J30.81) Active confirmed Plan Of Treatment No Information Insurance Providers Payer Name Payer Address Payer Phone Subscriber Number Group Number Insured Name Patient Relationship to Insured Coverage Start Date Coverage End Date [employer] POS II [address] [place] [phone] [id number] Jenniffer Cm Self - patient is the insured Medical (General) History Medical History History ICD Code hypothyroidism primary biliary cirrhosis osteoarthritis heart murmur Surgical History Surgery Date(Month/Year) tubal ligation 1973 hysterectomy 1974 cholecystectomy 1987 knee replacements Hospitalization History Reason Date(Month/Year) pneumonia 07/2022 childbirth 1973 childbirth 1968 childbirth 1964 childbirth 1962
--- OUTSIDE RECORDS SUMMARY | 2024-12-31 12:02 | XMS_ITS ---
Author Organization [facility] ([address]) Address [address] [place] [address] Care Team Providers Care Composition Siding Worker Name Role Phone Kirby Rodarte Primary Care Provider UnavailSophie Cool Unavailable [phone] Mackenzie Obando Unavailable [phone] REASON FOR VISIT ARC follow-up Encounters Encounter Location Date Provider Diagnosis [facility] [address] [place] [address] 08/10/2023 Mackenzie Obando Plan Of Treatment No Information Progress Notes * Bart ACKERMANOB:1940 (84 yo F)Acc No.[id number]:08/10/2023 Progress Notes Patient: Ibeth WARDyce Provider: Robin Obando MD :1940 A ge:83 Y S ex:Female Date:08/10/2023 Address:[address], [facility] Pcp:Kirby Rodarte Subjective: * Chief Complaints: * 1 . ARC follow-up. * Medical History: Objective: * Vitals: Assessment: Plan: * Treatment: * Billing Information: * Visit Code: * Procedure Codes: * Electronic signature of Cony Obando MD on 12/31/2024 at 12:02 PM CDT Sign off status: Pending * Provider: Robin Obando MD Date: 0 08/10/2023 Generated for Giovanni corbin/Latricia/Praful on: 0 12/31/2024 12:02 PM CDT
--- OUTSIDE RECORDS SUMMARY | 2024-12-31 12:03 | XMS_ITS ---
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 Name Role Phone Kirby Rodarte Primary Care Provider UnavailSophie Cool Unavailable [phone] [employer], Provider Unavailable Unavailab le Allergies Allergen (clinical drug ingredient) Drug/Non Drug Allergy documented on EMR Reaction Allergy Type Onset Date Status CONTRAST DYE (uncoded) other reaction Allergy Active codeine Codeine stomach upset Drug Allergy Act francesca REASON FOR VISIT [facility] Conversion Encounter Medications Medication SIG (Take, [...] Active Encounters Encounter Location Date [facility] [place] [address] 11/19/2023 Provider Lindsay Allergic rhinitis due to [...] Notes * Bart ACKERMANOB:1940 (84 yo F)Acc No.[id number]:11/19/2023 Patient: Jenniffer WARD Provider: David Jeffers :1940 A ge:83 Y S ex:Female Date:11/19/2023 Address:[address] [place] [address], [address] Pcp:Kirby Rodarte Subjective: * Chief Complaints: * [facility] . [facility] En[facility]. * Medical History: * [...] Electronic signature of Juan Luis SHAHID-Migration on 12/31/2024 at 12:02 PM CDT Sign off status: Pending * Provider: David coyne Migration Date: 11/19/2023 Generated for Giovanni corbin/Latricia/Praful on: 12/31/2024 12:02 PM CDT
--- OUTSIDE RECORDS SUMMARY | 2024-12-31 12:03 | XMS_ITS | Clinical Summary ---
Author Organization [facility] [employer] Address [facility] [facility] [place] [address] Care Team Providers Care Metal Mover Name Role Phone Hasmukh Gonzalez MD Primary Care Provider Unavail able Source Comments [facility] [employer],non-owned Affiliates and Associated Physician Practices is amultiple site organization consisting of ambulatory clinics and hospital sitesin [place], [place], [place] and [place]. This disclosure is being madepursuant to the Care Everywhere program and may not contain all information available regarding this patient. 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
--- OUTSIDE RECORDS SUMMARY | 2024-12-31 12:03 | XMS_ITS | Patient Health Record ---
Author Organization [facility] [employer] Address [address] [place] [address] Care Team Providers Care Off Track Betting Manager Name Role Phone Kartik Hines DO Primary Care Provider UnavailAgnieszka Hankins Unavailable [phone] Anoop Robles Unavailable [phone] Allergies Allergen (clinical drug ingredient) Drug/Non Drug [...] Status Risk Notes Problem Generalized anxiety disorder (21107329) Generalized anxiety disorder (F41.1) 07/07/19 Active confirmed Problem Primary insomnia (0710321) Primary insomnia (F51.01) 07/07/19 Active confirmed Problem Amnesia (18083949) Other amnesia (R41.3) 07/07/19 Active confirmed Problem Screening for cardiovascular system disease (848596500) Encounter for screening for cardiovascular disorders (Z13.6) Active confirmed Problem Dietary management surveillance (088366154) Dietary counseling and surveillance (Z71.3) Active confirmed Problem Mild recurrent major depression (24732360) MDD (major depressive disorder), recurrent episode, mild (F33.0) Active confirmed Vital Signs Heart Rate 69 /min 11/08/2024 Respiratory Rate 19 /min 11/08/2024 Height-cm 165.10 cm 11/08/2024 Blood pressure diastolic 83 mm Hg 11/08/2024 Weight-kg 77.11 kg 11/08/2024 Height 65.00 in 11/08/2024 Blood pressure systolic 150 mm Hg 11/08/2024 Weight 175 lbs 09/17/2024 BMI 28.29 kg/m2 11/08/2024 Encounters Encounter Location Date Provider Diagnosis [facility] [address] [place] [address] 01/05/2024 Agnieszka Sorenson [facility] [address] [place] [address] 01/09/2024 Agnieszka Sorenson MDD (major depressiv e disorder), recurrent episode, mild F33.0 ; Generalized anxiety disorder F41.1 ; Primary insomnia F51.01 and Other amnesia R41.3 [facility] [address] [place] [address] 02/20/2024 Agnieszka Sorenson MDD (major depressiv e disorder), recurrent episode, mild F33.0 ; Generalized anxiety disorder F41.1 ; Primary insomnia F51.01 and Other amnesia R41.3 [facility] [address] [place] [address] 09/17/2024 Agnieszka Sorenson MDD (major depressiv e disorder), recurrent episode, mild F33.0 ; Generalized anxiety disorder F41.1 ; Primary insomnia F51.01 ; Other amnesia R41.3 and Encounter for screening for cardiovascular disorders Z13.6 [facility] [address] [place] [address] 11/08/2024 Agnieszka Sorenson Encounter for screen ing for depression Z13.31 ; MDD (major depressive disorder), recurrent episode, mild F33.0 ; Encounter for screening for cardiovascular disorders Z13.6 ; Dietary counseling and surveillance Z71.3 ; Generalized anxiety disorder F41.1 ; Primary insomnia F51.01 and Other amnesia R41.3 [facility] [address] [facility] [address] [place] [address] 04/10/2024 Anoop Robles [place] [address] [facility] [address] [place] [address] 08/06/2024 Agnieszka Sorenson [place] [address] [facility] [address] [place] [address] 11/09/2024 Agnieszka Sorenson Assessments Encounter Date Diagnosis [...] Memory impairment - monitor R41.3: Other amnesia 09/17/2024 MDD (major depressive disorder), recurrent episode, mild (ICD-10 - F33.0) 1. 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 Memory impairment - monitor 11/08/2024 Encounter for screening for depression (ICD-10 - Z13.31) 1. 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 Memory impairment - monitor 11/08/2024 Generalized anxiety disorder (ICD-10 - F41.1) 1. 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 has silvino AFib Discuss and educated on ALL RX [...] medications SLUMS= 28 11/08/24 See nuerologist jerson renae hx fall 6 weeks ago and seen ER and CT head monitor 02/20/2024 Other referral to the local chapter or national office of the Alzheimer's Association (3-397-914-276 0; http://www.alz .org), the Alzheimer's Disease Education and Referral Center (ADEAR) (4-566-184-448 0; http://www.halley .nih.gov/Alzjackelin stern/), 1. 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 has hx AFib Discuss and educated on [...] Provider Name:Agnieszka Sorenson , 02/28/2025 02:00:00 PM, [address], [place], [address], Insurance Providers Payer Name Payer Address Payer Phone Subscriber Number Group Number Insured Name Patient Relationship to Insured Coverage Start Date Coverage End Date Medicare-I l Medicare [address] [employer] [facility] [place] [phone] [id number] FINA ACKERMAN Self - patient is the insured [employer] [address] [place] [address] [id number] FINA ACKERMAN Self - patient is the insured Medical (General) History Medical History History ICD Code Problems: Acute COVID-19 Generalized anxiety disorder Memory impairment Primary insomnia Recurrent major depression , AFIB BILARY Cirrohosis Surgical History Surgery Date(Month/Year) Removal of gallbladder (64228) Hysterectomy (87661) Cataract surgery (44407) Appendectomy (99144) Other
[2024-12-31] MEDS: FUROSEMIDE INJ 40 MG/4 ML VIAL IV PUSH ×2 (12:05→20:21)
[2024-12-31 12:12] LABS: Alanine Aminotransferase 23 U/L (6-35); Albumin Level 3.3 g/dL (3.5-5.1); Alkaline Phosphatase 295 U/L (38-126); Anion Gap 7 mmol/L (4-12); Aspartate Amino Transferase 49 U/L (14-36); Bilirubin,Total 1.0 mg/dL (0.2-1.3); Blood Urea Nitrogen 14 mg/dL (7-17); Calcium 8.5 mg/dL (8.4-10.2); Carbon Dioxide 24 mmol/L (22-30); Chloride 104 mmol/L (98-107); Estimated CRCL calculation 40 ml/min; Estimated Glomerular Filt Rate > 60; Glucose 112 mg/dL (65-110); Potassium 3.9 mmol/L (3.4-5.0); Sodium 135 mmol/L (137-145); Total Protein 6.6 g/dL (6.3-8.2)
[2024-12-31 12:17] LABS: NT Pro B Type Natriuretic Pept 8280 pg/mL (19.9-100)
[2024-12-31 12:28] LABS: CRP 12.2 mg/dL (<1.0)
[2024-12-31] MEDS: cefTRIAXone 1 GM in SODIUM CHLORIDE 0.9% IV 50 ML 100 ML IVPB (13:04)
[2024-12-31] MEDS: ALBUTEROL SULFATE NEB 2.5 MG/3 ML INH INHALATION ×2 (13:26→20:49)
[2024-12-31 13:38] LABS: Add Urine Microscopic? YES; Appearance Urine Clear (Clear); Glucose Urine UA Negative (Negative); Leukocyte Esterase Ur Trace LEU/UL (Negative); Nitrate Urine Negative (Negative); Non Pathogenic Casts 0-2; Specific Grav Ur 1.005 (1.001-1.035)
[2024-12-31] MEDS: AZITHROMYCIN IV 500 MG in SODIUM CHLORIDE 0.9% IV 250 ML IVPB (13:40)
--- NOTE | 2024-12-31 13:40 | P.HP_ITS ---
H&P: HPI History of Present Illness Date/Time: 12/31/24 13:40 Chief Complaint: Shortness of Breath Narrative: 84 y/o F with PMH of Afib, CHF, CKD, Sjogren's, Meniere's, hypertension, hyperlipidemia, primary biliary cirrhosis, and hypothyroidism presents here with shortness of breath. The patient presents here from home via EMS for further evaluation of shortness of breath. She reports onset approximately 5-6 days ago which was concurrent with the patient self holding her diuretic. She reports she stopped taking it as it was inconvenient, she was not feeling well and wanted to stay in bed, and her legs were not swollen at the time. Shortness of breath is accompanied by worsening lower extremity edema, wheezing, increased sputum production, fever (highest at home was 101.3F), chills, minimal diarrhea, and cough. She denies chest pain, nausea, or vomiting. Per EMS report, the patient was hypoxic in the 80s on room air upon their arrival. She was initially saturating 99% on 2L nasal cannula. She was trialed on room air and her O2 saturation dropped to 86- 89%. Initial VS at presentation: 97.6? F, HR 97, RR 24, 154/118, and 99% on 2L nasal cannula. ED workup showed: No leukocytosis, no anemia, no significant electrolyte derangements, renal function within normal limits, glucose 112, lactic 1.5, CRP 12.2, BNP 8280, and UA showed trace leuk esterase otherwise unremarkable. CXR showed cardiomegaly with pulmonary edema. Review of Systems Review of Systems: All systems reviewed & are unremarkable except as noted in HPI and below [facility] Past Medical History Medical History Primary biliary cirrhosis BMI 28.0-28.9,adult Urinary catheter insertion/adjustment/removal Anxiety and depression Shingles Meniere disease Sjogren syndrome Rectocele Interstitial pulmonary fibrosis Vitamin D deficiency PAF (paroxysmal atrial fibrillation) CKD (chronic kidney disease) Hyperlipidemia Hypothyroidism Hypertension HOCM (hypertrophic obstructive cardiomyopathy) Vertigo Actinic keratosis History of basal cell carcinoma (BCC) Chin Surgical History Surgical History History of bladder surgery bladder suspension History of knee replacement 4- 1997, 1998, 1999, 2001 History of cholecystectomy 1996 H/O: hysterectomy 1974 History of tubal ligation 1973 Family History Family History Father Hypertension Cerebrovascular accident, Onset Age: 70 Patient's father is Mother Hypertension Family history of aortic aneurysm, Onset Age: 81 Sibling Hypertension Family history of diabetes mellitus in first degree relative Family history of coronary artery disease Family history of premature coronary heart disease Patient's brother is Family history of malignant neoplasm of brain Family history of type 2 diabetes mellitus Sibling Diabetes mellitus Heart disease Advanced hepatic cirrhosis Social History Social History Social History: Caffeine-daily Smoking status: Former smoker Second hand tobacco smoke exposure: Yes Alcohol intake: never Substance use: never Substance use type: does not use Other substance usage details: CBD gummies Do You Feel Safe in your Home?: Yes Lack of Transportation: No Lack of Food: Never True Current Housing: I Have Housing Concerned About Future Housing: No Difficulty Paying Gas/Electric Bills: No Difficulty Paying for Meds: No Currently Unemployed: No Education: Associate Degree Difficulty w/ Childcare or Family Care: No Living arrangements: with family Occupation/Education: retired Additional occupation/education comments: [employer]. Gender identity (if verbalized by the patient): Female Spiritual care concerns: No Meds Home Medications and Allergies Home Medications ?Medication ?Instructions ?Recorded ?Confirmed ?Type ursodiol 500 mg tablet 500 mg PO BID #180 tabs 08/21/24 12/31/24 Rx levothyroxine 200 mcg tablet 200 mcg PO DAILY 10/16/24 12/31/24 History potassium chloride 20 mEq 40 meq PO DAILY 10/24/24 12/31/24 History tablet,extended release metoprolol succinate 50 mg See Rx Instructions .Route 10/25/24 12/31/24 Rx tablet,extended release 24 hr .COMPLEX #180 tabs losartan 25 mg tablet 25 mg PO DAILY #90 tabs 12/04/24 12/31/24 Rx furosemide 40 mg tablet 20 mg PO DAILY 12/31/24 12/31/24 History mirtazapine 30 mg tablet 30 mg PO QHS 12/31/24 12/31/24 History vilazodone 40 mg tablet 40 mg PO DAILY 12/31/24 12/31/24 History Allergies Allergy/AdvReac Type Severity Reaction Status Date / Time Gadolinium-Containing Allergy Severe Chest Pain Verified 12/31/24 14:48 Contrast Medi adhesive tape Allergy Mild Rash Verified 12/31/24 14:48 ioversol Allergy Unknown Other Verified 12/31/24 14:48 morphine Allergy Unknown Liver Verified 12/31/24 14:48 function tests abnormal acetaminophen AdvReac Severe kidney Verified 12/31/24 14:48 stop working tramadol AdvReac Severe Other Verified 12/31/24 14:48 trazodone AdvReac Intermediate Edema Verified 12/31/24 14:48 benzonatate AdvReac Unknown Headache Verified 12/31/24 14:48 codeine AdvReac Unknown Headache Verified 12/31/24 14:48 Vital Signs Vital Signs - 24 hr 12/31/24 11:25 12/31/24 11:36 12/31/24 11:36 Temperature 97.6 F Pulse Rate 97 91 Respiratory Rate 24 H Blood Pressure 154/118 H Pulse Oximetry 99 98 Oxygen Delivery Nasal Cannula Nasal Cannula Oxygen Flow Rate 2 2 12/31/24 11:36 12/31/24 11:39 12/31/24 13:24 Temperature 97.6 F Pulse Rate 89 88 198 H Respiratory Rate 24 H 24 H 20 Blood Pressure 154/118 H 115/88 Pulse Oximetry 100 99 Oxygen Delivery Oxygen Flow Rate 12/31/24 13:27 Temperature Pulse Rate 95 Respiratory Rate 17 Blood Pressure Pulse Oximetry Oxygen Delivery Oxygen Flow Rate Exam Const: General: comfortable and no acute distress Other: , female, elderly, nontoxic appearance HENMT: Face/Nose/Sinus: Normal nares present Mouth: Yes moist mucous membranes Eyes: General: appearance normal, both eyes and all related structures Sclera: sclerae normal Pupils: Equal, round and reactive pupils present EOM: EOMs intact bilaterally Resp: Effort & Inspection: normal respiratory effort Other: Mild upper airway congestion, no overt wheezing. No crackles appreciated. Cardio: Rate: regular rate Rhythm: regular rhythm Other: Infrequent ectopy, no murmur. GI: Other: Abdomen soft, nondistended, nontender. Normoactive bowel sounds in all quadrants. Skin: General skin exam: normal color and no rashes or lesions noted Wounds: no wounds Neuro: Speech: normal speech Motor exam (neuro): 5/5 motor strength present throughout Sensory Exam: normal sensation Other: A&O x4 Extrem: Other: 2+ pitting edema to bilateral lower extr emities, symmetric. No weeping or wounds. Psych: Mental Status: mental status grossly normal Affect: normal affect Other: Good insight judgment, pleasant H&P: Results Labs Labs: Short CBC 12/31/24 Range/Units 11:39 WBC 9.8 (4.5-10.0) K/mm3 Hgb 13.0 (12.0-15.0) g/dL Hct 41.1 (37.0-47.0) % Plt Count 319 (150-375) k/mm3 BMP 12/31/24 11:39 Sodium 135 L Potassium 3.9 Chloride 104 Carbon Dioxide 24 BUN 14 Creatinine 0.85 Glucose 112 H Calcium 8.5 Liver Function 12/31/24 Range/Units 11:39 Total Bilirubin 1.0 (0.2-1.3) mg/dL AST 49 H (14-36) U/L ALT 23 (6-35) U/L Alkaline Phosphatase 295 H (38-126) U/L Albumin 3.3 L (3.5-5.1) g/dL Urine 12/31/24 Range/Units 13:27 Urine Color Yellow (Yellow) Urine Appearance Clear (Clear) Urine pH 6.0 (5.0-9.0) Ur Specific [place] 1.005 (1.001-1.035) Urine Protein Negative (Negative) mg/dL Urine Glucose (UA) Negative (Negative) mg/dL Assessment and Plan Assessment and plan (1) Acute on chronic diastolic heart failure: Code(s): I50.33 - Acute on chronic diastolic (congestive) heart failure Status: Acute Assessment and Plan: - BNP 8280 - most recent echo (04/2024): Systolic function 55-60%, ventricular septum sigmoid shaped suggestive of hypertrophic cardiomyopathy with no resting LVOT obstruction, diastolic function abnormal, [id number] valvular disease, moderate pulmonary hypertension. - update echo - hold home p.o. Lasix 20 mg daily, will continue as Lasix 40 mg IV b.i.d. - monitor I&Os and daily weights - trend renal function (2) Community acquired pneumonia: Qualifiers: Laterality: unspecified laterality Qualified Code(s): J18.9 - Pneumonia, unspecified organism Code(s): J18.9 - Pneumonia, unspecified organism Status: Acute Assessment and Plan: Patient reported shortness of breath, likely secondary to CHF exacerbation. However she is also reporting wheezing, fever, cough, chills, and increased sp utum production. Reviewed CXR imaging, no focal consolidation appreciated. Patient's CRP elevated at 12.2 raising concerns for infectious process. Given constellation of clinical symptoms and elevated CRP, starting treatment for suspected pneumonia. Discussed plan with patient and she would like to forgo CT for definitive diagnosis. - CXR: cardiomegaly with pulmonary edema - started on CAP tx: Ceftriaxone and azithromycin on 12/31 - supportive care: Ibuprofen, Mucinex, Albuterol robert - continue supplemental O2 to maintain O2 sat greater than 92%, wean as tolerated. Currently requiring 2L nasal cannula. (3) CKD (chronic kidney disease): Qualifiers: Chronic kidney disease stage: unspecified stage Qualified Code(s): N18.9 - Chronic kidney disease, unspecified Code(s): N18.9 - Chronic kidney disease, unspecified Status: Chronic Assessment and Plan: - creatinine 0.85, BUN 14, and GFR >60 upon initial evaluation on 12/31 - baseline creatinine: 0.9-1.2 - trend renal function - trend electrolytes, correct as needed (4) Hypertension: Qualifiers: Hypertension type: primary hypertension Qualified Code(s): I10 - Essential (primary) hypertension Code(s): I10 - Essential (primary) hypertension Status: Chronic Assessment and Plan: - chronic, currently 147/86 - continue home medications: Losartan, Metoprolol - monitor Plan Diet: Heart healthy GI Prophylaxis: N/a DVT Prophylaxis: Lovenox SQ IV fluids: None Lines/Tubes: Peripheral IV Code Status: Full code Quality VTE Prophylaxis VTE prophylaxis: pharmacologic ordered Hospitalist [facility] Advance Care Plan I have confirmed that the patient's Advanced Care Plan is present, code status is documented, or surrogate decision maker is listed in patient medical record.: Yes Medication Reconciliation I have utilized all available resources to obtain, update and review the patients current medications (includes all prescriptions, OTC, herbals, cannabis, and nutritional supplements).: Yes
--- NOTE | 2024-12-31 14:25 | ADMGEN ---
This patient, Jenniffer Cm, was admitted to Medical Room 248-. Patient/family oriented to hospital policies and general routines including ID bracelet, bed and alarms, visiting hours, pain management, procedures, bathroom and other care routines, personal items, smoking policy, room service/diet, and visiting hours. Information on how to activate the Rapid Response Team has been discussed. Patient/Family are encouraged to report perceived risks to care and to ask questions if they do not understand what they are told or what they should do.
[2024-12-31 18:12] LABS: INR 1.2; Partial Thromboplastin Time 30.6 Seconds (22.3-36.8); Prothrombin Time 15.5 Seconds (11.1-14.7)
[2024-12-31] MEDS: MIRTAZAPINE 30 MG TABLET PO (23:30)
[2024-12-31] MEDS: METOPROLOL SUCCINATE EXT REL 50 MG TABCR PO (23:30)
[2025-01-01] VITALS (21 sets, daily range): BP systolic 137–149; BP diastolic 57–80; PULSE 82–101; RESP 16–20; TEMP 37–37.3; O2SAT 86–98
--- NOTE | 2025-01-01 | ECHO_ITS ---
Patient Info Name: Jenniffer Cm Age: 84 years : 1940 Gender: Female Ht: 65 in Wt: 140 lbs BSA: 1.71 m2 HR: 82 bpm BP: 149 / 72 mmHg Heart Rhythm: Atrial Fibrillation Technical Quality: Good Exam Date: 01/01/2025 11:41 AM Patient Status: O Admit Date: 12/31/2024 Exam Type: CA echo doppler color flow Complete two-dimensional, color flow and Doppler transthoracic echocardiogram is performed. Staff Referring Physician: Zion Coley Book Cutter: Michelle Lauren Attending Provider: Andree Gomez MD Summary 1. Complete two-dimensional, color flow and Doppler transthoracic echocardiogram is performed. 2. Moderate left atrial enlargement. 3. Left ventricular hypertrophy with preserved systolic function. 4. Trivial MR. 5. Mildly sclerotic aortic valve with well maintained leaflet excursion. 6. Mild RV dysfunction. 7. Moderate tricuspid regurgitation velocity of this indicates evidence of severely elevated pulmonary artery pressure. Left Ventricle Left ventricular chamber dimension is normal. Left ventricular systolic function is normal, estimated at 55-60. There is mild concentric increased left ventricular wall thickness. Right Ventricle Right ventricular chamber dimension is mildly enlarged. Left Atria Left atrial chamber dimension is moderately enlarged. Right Atria Right atrial chamber dimension is mildly enlarged. Aortic Valve The aortic valve is trileaflet. There is mild aortic valve sclerosis. Pulmonic Valve The pulmonic valve is not well visualized. Mitral Valve The mitral valve has normal leaflets. There is trace mitral valve regurgitation. Tricuspid Valve The tricuspid valve leaflets are normal. There is moderate tricuspid valve regurgitation. Severe pulmonary hypertension, estimated pulmonary arterial systolic pressure is 73 mmHg. Pericardium/Pleural The pericardium appears normal. Aorta The aortic root size at the sinus of Valsalva is normal. Left Ventricular Outflow Tract Name Value Normal LVOT 2D LVOT Diameter 1.7 cm LVOT Doppler LVOT Peak Velocity 121 cm/s LVOT Peak Gradient 4 mmHg LVOT Mean Gradient 2 mmHg LVOT VTI 20 cm LVOT VTI/AV VTI Ratio 0.6 LVOT Stroke Volume 47 ml LVOT CO 3.8 l/min LVOT CI 2.2 l/min/m2 Pulmonic Valve Name Value Normal RVOT Doppler RVOT Peak Velocity 93 cm/s RVOT Peak Gradient 3 mmHg RVOT Mean Gradient 2 mmHg PV Doppler PV Peak Velocity 116 cm/s PV Peak Gradient 5 mmHg Mitral Valve Name Value Normal MV Diastolic Function MV E Peak Velocity 120 cm/s MV A Peak Velocity 28 cm/s MV E/A 4.2 MV Decel Time (PW) 161 ms MV Annular TDI MV E/e' (Septal) 18.0 MV E/e' (Lateral) 12.7 MV E/e' (Average) 15.3 Tricuspid Valve Name Value Normal TV Regurgitation Doppler TR Peak Velocity 452 cm/s TR Peak Gradient 82 mmHg Estimated PAP/RSVP PA Systolic Pressure 73 mmHg <36 Aortic Valve Name Value Normal AV Doppler AV Peak Velocity 202 cm/s AV Peak Gradient 15 mmHg AV Mean Gradient 9 mmHg AV VTI 34 cm AV Area (Cont Eq VTI) 1.4 cm2 >=3.0 AV Area (Cont Eq Abhi) 1.4 cm2 AV DI (Abhi) 0.60 AV Regurgitation 2D LVOT Area 2.3 cm2 Ventricles Name Value Normal LV Dimensions 2D/MM IVS Diastolic Thickness (2D) 1.0 cm 0.6-1.0 LVID Diastole (2D) 4.3 cm 3.8-5.2 LVIW Diastolic Thickness (2D) 1.2 cm 0.6-0.9 LVID Systole (2D) 2.8 cm 2.2-3.5 LVOT Diameter 1.7 cm LV Mass (2D Cubed) 168.68 g 67.00-162.00 LV Mass Index (2D Cubed) 98 g/m2 43-95 Relative Wall Thickness (2D) 0.56 <=0.42 LV Fractional Shortening/Ejection Fraction 2D/MM LV Fractional Shortening (2D) 35 % 27-45 LV EF (2D Teichholz) 65 % LV Diastolic Volume (4C MOD) 94 ml LV EF (4C MOD) 44 % LV Diastolic Volume (2C MOD) 117 ml LV EF (2C MOD) 76 % LV Diastolic Volume (BP MOD) 108 ml 46-106 LV Diastolic Volume Index (BP MOD) 63 ml/m2 29-61 LV Systolic Volume (BP MOD) 52 ml 14-42 LV Systolic Volume Index (BP MOD) 30 ml/m2 8-24 LV EF (BP MOD) 52 % 54-74 LV Diastolic Length (4C) 7.4 cm LV Systolic Length (4C) 6.9 cm LV Stroke Volume (4C MOD) 41 ml Atria Name Value Normal LA Dimensions LA Volume (4C A-L) 64 ml LA Volume (BP A-L) 63 ml RA Dimensions RA Systolic Major [place] Length (4C) 5.7 cm 2.2-2.8 RA Area (4C) 16.2 cm2 <=18.0 Report Signatures
[2025-01-01] MEDS: ALBUTEROL SULFATE NEB 2.5 MG/3 ML INH INHALATION ×4 (02:33→20:54)
[2025-01-01 05:24] LABS: Hematocrit 35.5 % (37.0-47.0); Hemoglobin 11.0 g/dL (12.0-15.0); Immature Granulocyte Percent A 0.6 % (0-0.5); Lymphocytes Absolute Auto 0.52 K/mm3 (0.9-3.2); Mean Corpuscular HGB Conc 31.0 g/dl (32-36); Mean Corpuscular Hemoglobin 28.6 pg (26-34); Mean Corpuscular Volume 92.4 fl (80-100); Nucleated Red Blood Cells Absolute Auto 0.000 K/mm3 (0.0-0.012); Nucleated Red Blood Cells Perc 0.0 % (0.0-0.2); Platelet Count Result 321 k/mm3 (150-375); Red Blood Count 3.84 M/mm3 (4.2-5.4); White Blood Count 9.0 K/mm3 (4.5-10.0)
[2025-01-01] MEDS: LEVOTHYROXINE SODIUM 100 MCG TABLET 200 MCG PO (05:40)
[2025-01-01 05:48] LABS: Anion Gap 3 mmol/L (4-12); Blood Urea Nitrogen 15 mg/dL (7-17); Calcium 8.0 mg/dL (8.4-10.2); Carbon Dioxide 29 mmol/L (22-30); Chloride 98 mmol/L (98-107); Estimated CRCL calculation 43 ml/min; Estimated Glomerular Filt Rate 58; Glucose 107 mg/dL (65-110); Potassium 3.6 mmol/L (3.4-5.0); Sodium 130 mmol/L (137-145)
--- NOTE | 2025-01-01 06:05 | PC.NURSE ---
This nurse spoke with pt about having her bring in Ursodiol 500 mg and Vilazodone 40 mg as these medications are included in her home meds, however they are non formulary. Pt states her will bring those medications in today.
[2025-01-01] MEDS: SODIUM CHLORIDE 0.9% IV 500 ML 100 ML IV CONT (07:35)
[2025-01-01] MEDS: LOSARTAN POTASSIUM 25 MG TABLET PO (08:23)
[2025-01-01] MEDS: METOPROLOL SUCCINATE EXT REL 50 MG TABCR PO ×2 (08:23→20:27)
[2025-01-01] MEDS: FUROSEMIDE INJ 40 MG/4 ML VIAL IV PUSH (08:23)
[2025-01-01] MEDS: POTASSIUM CHLORIDE 20 MEQ ER TABLET 40 MEQ PO (08:24)
[2025-01-01] MEDS: cefTRIAXone 1 GM in SODIUM CHLORIDE 0.9% IV 50 ML 100 ML IVPB (12:28)
[2025-01-01] MEDS: AZITHROMYCIN IV 500 MG in SODIUM CHLORIDE 0.9% IV 250 ML IVPB (12:52)
--- NOTE | 2025-01-01 12:53 | PM.IMPN ---
Subjective Date/time seen: 01/01/25 12:53 Interval history: This pt is examined today sitting at the bedside in no acute distress. She has just had her oxygen weaned to not needing any and she reports that she has been feeling better today. ECHO is ordered and is pending results. She remaind on IV lasix at this time at 40 mg BID. Her home dose was supposed to be 20 mg daily po. She admits that she did not take her Lasix for several days at home because she felt as though it was not working as it is supposed to. She now understands the importance of taking it no matter what. Her Lasix today will be started back at home dose by mouth to ensure she can tolerate. Potential for discharge tomorrow unless pt again requires supplemental oxygen. Review of Systems Review of Systems: All systems reviewed & are unremarkable except as noted in HPI and below Exam Const: General: comfortable and no acute distress Other: , female, elderly, nontoxic appearance HENMT: Face/Nose/Sinus: Normal nares present Mouth: Yes moist mucous membranes Eyes: General: appearance normal, both eyes and all related structures Sclera: sclerae normal Pupils: Equal, round and reactive pupils present EOM: EOMs intact bilaterally Resp: Effort & Inspection: normal respiratory effort Auscultation: clear to auscultation bilaterally Cardio: Rate: regular rate Rhythm: regular rhythm Heart sounds: no gallops, no murmurs and no rubs GI: GI Palp: Yes Soft to palpation and No Tenderness to palpation present (GI) Auscultation: normal bowel sounds Skin: General skin exam: normal color and no rashes or lesions noted Wounds: no wounds Neuro: Cranial nerves: Yes Equal, round and reactive pupils present Speech: normal speech Motor exam (neuro): 5/5 motor strength present throughout Sensory Exam: normal sensation Other: A&O x4 Extrem: General: edema Other: Trace pitting edema to BLE. No wounds. Psych: Mental Status: mental status grossly normal Affect: normal affect Objective Data Vital Signs Vital Signs: Vital Signs - 24 hr 12/31/24 13:24 12/31/24 13:27 12/31/24 14:07 Temperature Pulse Rate 198 H 95 93 Respiratory Rate 20 17 20 Blood Pressure 115/88 147/86 H Pulse Oximetry 99 100 Oxygen Delivery Oxygen Flow Rate 12/31/24 14:45 12/31/24 14:52 12/31/24 16:00 Temperature 97.7 F Pulse Rate 89 84 Respiratory Rate 26 H Blood Pressure 136/63 Pulse Oximetry 96 96 Oxygen Delivery Nasal Cannula Oxygen Flow Rate 2 12/31/24 20:00 12/31/24 20:00 12/31/24 20:43 Temperature 98.4 F Pulse Rate 90 90 84 Respiratory Rate 16 20 Blood Pressure 162/75 H Pulse Oximetry 100 100 Oxygen Delivery Nasal Cannula Oxygen Flow Rate 2 12/31/24 20:49 12/31/24 20:57 12/31/24 23:17 Temperature Pulse Rate 88 88 Respiratory Rate 16 16 Blood Pressure Pulse Oximetry 100 Oxygen Delivery Nasal Cannula Oxygen Flow Rate 2 12/31/24 23:30 01/01/25 00:00 01/01/25 02:33 Temperature Pulse Rate 90 87 88 Respiratory Rate 16 Blood Pressure Pulse Oximetry Oxygen Delivery Oxygen Flow Rate 01/01/25 02:40 01/01/25 04:00 01/01/25 05:31 Temperature 99.2 F Pulse Rate 88 82 83 Respiratory Rate 16 20 Blood Pressure 149/72 H Pulse Oximetry 98 Oxygen Delivery Oxygen Flow Rate 01/01/25 07:48 01/01/25 07:48 01/01/25 07:53 Temperature Pulse Rate 88 88 Respiratory Rate 16 16 Blood Pressure Pulse Oximetry 97 Oxygen Delivery Nasal Cannula Oxygen Flow Rate 2 01/01/25 08:00 01/01/25 08:00 01/01/25 08:23 Temperature Pulse Rate 88 89 Respiratory Rate Blood Pressure Pulse Oximetry 96 Oxygen Delivery Room Air Oxygen Flow Rate Intake/Output Intake/Output: Intake & Output 12/29/24 12/30/24 12/31/24 01/01/25 23:59 23:59 23:59 23:59 Intake Total 530 520 Output Total 700 1500 Balance -170 -047 Meds/Results Medications: Active Medications Generic Name Dose Route Start Last Admin Trade Name Freq PRN Reason Stop Dose Admin Albuterol 2.5 mg 12/31/24 14:00 01/01/25 07:51 Albuterol Sulfate Neb 2.5 Mg/3 Ml Inh INHALATION 2.5 mg Q6HRT HOWIE Administration Enoxaparin Sodium 40 mg 01/01/25 09:00 01/01/25 11:49 Enoxaparin 40 Mg/0.4 Ml Syringe SUB-Q Not Given DAILY HOWIE Furosemide 40 mg 12/31/24 21:00 01/01/25 08:23 Furosemide Inj 40 Mg/4 Ml Vial IV PUSH 40 mg Q12HR HOWIE Administration Guaifenesin 600 mg 12/31/24 14:07 Guaifenesin 12 Hr 600 Mg Tabcr PO Q12HR PRN Congestion Ceftriaxone Sodium 1 gm/ 50 mls @ 100 mls/hr 01/01/25 13:00 01/01/25 12:28 Sodium Chloride IVPB 100 mls/hr Q24H HOWIE Administration Azithromycin 500 mg/ Sodium 250 mls @ 250 mls/hr 01/01/25 14:00 01/01/25 12:52 Chloride IVPB 01/04/25 14:59 250 mls/hr Q24H HOWIE Administration Ibuprofen 600 mg 12/31/24 14:07 Ibuprofen 600 Mg Tablet PO Q6H PRN Cramping Levothyroxine Sodium 200 mcg 01/01/25 06:30 01/01/25 05:40 Levothyroxine Sodium 100 Mcg Tablet PO 200 mcg DAILY@0630 HOWIE Administration Losartan Potassium 25 mg 01/01/25 09:00 01/01/25 08:23 Losartan Potassium 25 Mg Tablet PO 25 mg DAILY HOWIE Administration Metoprolol Succinate 50 mg 12/31/24 23:10 01/01/25 08:23 Metoprolol Succinate Ext Rel 50 Mg Tabcr PO 50 mg Q12HR HOWIE Administration Mirtazapine 30 mg 12/31/24 23:05 12/31/24 23:30 Mirtazapine 30 Mg Tablet PO 30 mg HS HOWIE Administration Miscellaneous Information 1 each 12/31/24 00:01 Ursodiol 500 Mg Tablet Is Nonform, Can Pt Bring From Home? XX 01/30/25 00:00 CLARIFY HOWIE Miscellaneous Information 1 each 12/31/24 00:01 Vilazodone 40 Mg Tablet Is Nonform, Can Pt Bring From Home? XX 01/30/25 00:00 CLARIFY HOWIE Non-Formulary Medication 500 mg 01/01/25 09:00 Ursodiol PO 01/31/25 08:59 BID HOWIE Non-Formulary Medication 40 mg 01/01/25 09:00 Vilazodone PO 01/31/25 08:59 DAILY HOWIE Perflutren Lipid Microsphere 0 ml 12/31/24 14:10 Perflutren Lipid Microspheres 1.5 Ml Vial Diluted To 10 Ml Total Volume IV PUSH 01/03/25 14:10 ONCE PRN adequate visualization Protocol Potassium Chloride 40 meq 01/01/25 09:00 01/01/25 08:24 Potassium Chloride 20 Meq Er Tablet PO 40 meq DAILY HOWIE Administration Radiology Results: ITS Impressions Chest X-Ray 12/31/24 12:46 Impression: 1: Cardiomegaly with pulmonary edema. Labs Labs: Laboratory Results - last 24 hr 12/31/24 12/31/24 01/01/25 13:27 17:30 05:02 WBC 9.0 RBC 3.84 L Hgb 11.0 L Hct 35.5 L MCV 92.4 MCH 28.6 MCHC 31.0 L RDW 14.4 Plt Count 321 MPV 9.2 Immature Gran % (Auto) 0.6 H Neut % (Auto) 77.8 H Lymph % (Auto) 5.8 L [place] % (Auto) 12.4 H Eos % (Auto) 3.0 Baso % (Auto) 0.4 Lymph # (Auto) 0.52 L [place] # (Auto) 1.1 H Eos # (Auto) 0.3 Baso # (Auto) 0.0 Abs Immat Gran (auto) 0.05 H Absolute Neuts (auto) 7.0 H Absolute Nucleated RBC 0.000 Nucleated RBC % 0.0 PT 15.5 H INR 1.2 APTT 30.6 Sodium 130 L Potassium 3.6 Chloride 98 Carbon Dioxide 29 Anion Gap 3 L BUN 15 Creatinine 0.92 Estim Creat Clear Calc 43 Estimated GFR 58 L Glucose 107 Calcium 8.0 L Urine Color Yellow Urine Appearance Clear Urine pH 6.0 Ur Specific [place] 1.005 Urine Protein Negative Urine Glucose (UA) Negative Urine Ketones Negative Ur Blood (Man) Negative Urine Nitrate Negative Urine Bilirubin Negative Urine Urobilinogen 0.2 Leukocyte Esterase Rfl Trace H Urine RBC 0-2 Urine WBC 0-5 Ur Squamous Epith Cells None seen Urine Bacteria None seen Urine Casts 0-2 Quality VTE Prophylaxis VTE prophylaxis: pharmacologic ordered
[2025-01-01] MEDS: MIRTAZAPINE 30 MG TABLET PO (20:28)
[2025-01-02] VITALS (21 sets, daily range): BP systolic 132–152; BP diastolic 71–85; PULSE 72–118; RESP 20–22; TEMP 36.8–37.9; O2SAT 86–96
[2025-01-02 05:13] LABS: Hematocrit 36.8 % (37.0-47.0); Hemoglobin 11.3 g/dL (12.0-15.0); Immature Granulocyte Percent A 0.6 % (0-0.5); Lymphocytes Absolute Auto 0.40 K/mm3 (0.9-3.2); Mean Corpuscular HGB Conc 30.7 g/dl (32-36); Mean Corpuscular Hemoglobin 28.5 pg (26-34); Mean Corpuscular Volume 92.9 fl (80-100); Nucleated Red Blood Cells Absolute Auto 0.000 K/mm3 (0.0-0.012); Nucleated Red Blood Cells Perc 0.0 % (0.0-0.2); Platelet Count Result 326 k/mm3 (150-375); Red Blood Count 3.96 M/mm3 (4.2-5.4); White Blood Count 8.3 K/mm3 (4.5-10.0)
[2025-01-02 05:44] LABS: Alanine Aminotransferase 17 U/L (6-35); Albumin Level 2.9 g/dL (3.5-5.1); Alkaline Phosphatase 228 U/L (38-126); Anion Gap 3 mmol/L (4-12); Aspartate Amino Transferase 35 U/L (14-36); Bilirubin,Total 0.6 mg/dL (0.2-1.3); Blood Urea Nitrogen 15 mg/dL (7-17); Calcium 8.4 mg/dL (8.4-10.2); Carbon Dioxide 27 mmol/L (22-30); Chloride 100 mmol/L (98-107); Estimated CRCL calculation 44 ml/min; Estimated Glomerular Filt Rate > 60; Glucose 101 mg/dL (65-110); Magnesium 2.1 mg/dL (1.6-2.3); Potassium 3.7 mmol/L (3.4-5.0); Sodium 130 mmol/L (137-145); Total Protein 5.7 g/dL (6.3-8.2)
[2025-01-02] MEDS: LEVOTHYROXINE SODIUM 100 MCG TABLET 200 MCG PO (05:53)
[2025-01-02] MEDS: ALBUTEROL SULFATE NEB 2.5 MG/3 ML INH INHALATION ×3 (08:53→21:29)
[2025-01-02] MEDS: FUROSEMIDE 20 MG TABLET PO (09:35)
[2025-01-02] MEDS: ENOXAPARIN 40 MG/0.4 ML SYRINGE SUB-Q (09:35)
[2025-01-02] MEDS: METOPROLOL SUCCINATE EXT REL 50 MG TABCR PO ×2 (09:35→20:37)
[2025-01-02] MEDS: POTASSIUM CHLORIDE 20 MEQ ER TABLET 40 MEQ PO (09:36)
[2025-01-02] MEDS: LOSARTAN POTASSIUM 25 MG TABLET PO (09:36)
[2025-01-02] MEDS: cefTRIAXone 1 GM in SODIUM CHLORIDE 0.9% IV 50 ML 100 ML IVPB (12:32)
[2025-01-02] MEDS: AZITHROMYCIN IV 500 MG in SODIUM CHLORIDE 0.9% IV 250 ML IVPB (13:12)
--- NOTE | 2025-01-02 15:41 | P.PNIM_ITS ---
Progress Note: A&P Assessment and Plan (1) CHF (congestive heart failure): Code(s): I50.9 - Heart failure, unspecified Status: Acute (2) Pneumonia: Code(s): J18.9 - Pneumonia, unspecified organism Status: Acute Plan (1) Acute on chronic diastolic heart failure: Code(s): I50.33 - Acute on chronic diastolic (congestive) heart failure Status: Acute Assessment and Plan: - BNP 8280 - most recent echo (04/2024): Systolic function 55-60%, ventricular septum sigmoid shaped suggestive of hypertrophic cardiomyopathy with no resting LVOT obstruction, diastolic function abnormal, [id number] valvular disease, moderate pulmonary hypertension. - update echo - hold home p.o. Lasix 20 mg daily, will continue as Lasix 40 mg IV b.i.d. - monitor I&Os and daily weights - trend renal function (2) Community acquired pneumonia: Qualifiers: Laterality: unspecified laterality Qualified Code(s): J18.9 - Pneumonia, unspecified organism Code(s): J18.9 - Pneumonia, unspecified organism Status: Acute Assessment and Plan: Patient has a cough and shortness breath - CXR: cardiomegaly with pulmonary edema - started on CAP tx: Ceftriaxone and azithromycin on 12/31 - supportive care: Ibuprofen, Mucinex, Albuterol robert - continue supplemental O2 to maintain O2 sat greater than 92%, wean as tolerated. Currently requiring 2L nasal cannula. Repeat chest x-ray Pending urinalysis (3) CKD (chronic kidney disease): Qualifiers: Chronic kidney disease stage: unspecified stage Qualified Code(s): N18.9 - Chronic kidney disease, unspecified Code(s): N18.9 - Chronic kidney disease, unspecified Status: Chronic Assessment and Plan: - creatinine 0.85, BUN 14, and GFR >60 upon initial evaluation on 12/31 - baseline creatinine: 0.9-1.2 - trend renal function - trend electrolytes, correct as needed (4) Hypertension: Qualifiers: Hypertension type: primary hypertension Qualified Code(s): I10 - Essential (primary) hypertension Code(s): I10 - Essential (primary) hypertension Status: Chronic Assessment and Plan: - chronic, currently 147/86 - continue home medications: Losartan, Metoprolol - monitor Subjective Date/time seen: 01/02/25 15:41 Interval history: I saw exam patient today. Patient has cough, with scant phlegm, has fever in the evening Blood pressure stable Exam Narrative: GENERAL: Pleasant, in no acute distress. Well-nourished. - EYES: EOMI. Anicteric. - HENT: Moist mucous membranes. - LUNGS: Clear to auscultation bilateral ly, no wheezing, rhonchi, or rales. - CARDIOVASCULAR: Regular rate and rhyth m. No murmur. No JVD. - ABDOMEN: Soft, non-tender and non-dist ended. No palpable masses. - EXTREMITIES: No edema. Peripheral puls es 2+. Non-tender. - NEUROLOGIC: No focal neurological defi cits. CN II-XII grossly intact. - PSYCHIATRIC: Awake, Alert and oriented x 3. Appropriate mood and affect. - SKIN: No rashes or lesions. Warm. - LYMPH: No cervical lymphadenopathy. Objective Data Vital Signs Vital Signs: Vital Signs - 24 hr 01/01/25 16:00 01/01/25 20:00 01/01/25 20:07 Temperature 98.6 F Pulse Rate 93 88 101 H Respiratory Rate 19 Blood Pressure 137/57 L Pulse Oximetry 93 Oxygen Delivery Oxygen Flow Rate 01/01/25 20:20 01/01/25 20:27 01/01/25 20:54 Temperature Pulse Rate 101 H 91 Respiratory Rate 18 Blood Pressure Pulse Oximetry Oxygen Delivery Room Air Oxygen Flow Rate 01/01/25 21:02 01/01/25 21:25 01/02/25 00:00 Temperature Pulse Rate 91 89 82 Respiratory Rate 18 16 Blood Pressure Pulse Oximetry 86 L 94 Oxygen Delivery Room Air Nasal Cannula Oxygen Flow Rate 1 01/02/25 04:00 01/02/25 04:33 01/02/25 08:00 Temperature 98.3 F Pulse Rate 82 73 80 Respiratory Rate 20 Blood Pressure 152/77 H Pulse Oximetry 96 Oxygen Delivery Oxygen Flow Rate 01/02/25 08:56 01/02/25 08:56 01/02/25 09:04 Temperature Pulse Rate 93 93 72 Respiratory Rate 20 20 20 Blood Pressure Pulse Oximetry 86 L Oxygen Delivery Room Air Oxygen Flow Rate 01/02/25 09:35 01/02/25 09:43 01/02/25 11:25 Temperature Pulse Rate 87 Respiratory Rate Blood Pressure Pulse Oximetry 95 88 L Oxygen Delivery Nasal Cannula Nasal Cannula Oxygen Flow Rate 1 0.5 01/02/25 12:00 01/02/25 13:50 01/02/25 14:20 Temperature 100.3 F H Pulse Rate 81 118 H 74 Respiratory Rate 22 H 20 Blood Pressure 150/85 H Pulse Oximetry 91 Oxygen Delivery Oxygen Flow Rate 01/02/25 14:25 01/02/25 14:31 Temperature Pulse Rate 84 Respiratory Rate 20 Blood Pressure Pulse Oximetry 91 Oxygen Delivery Nasal Cannula Oxygen Flow Rate 1 Intake/Output Intake/Output: Intake & Output 12/30/24 12/31/24 01/01/25 01/02/25 23:59 23:59 23:59 23:59 Intake Total 530 1910 1692.5 Output Total 700 2700 400 Balance -170 -790 1292.5 Meds/Results Medications: Active Medications Generic Name Dose Route Start Last Admin Trade Name Freq PRN Reason Stop Dose Admin Albuterol 2.5 mg 12/31/24 14:00 01/02/25 14:20 Albuterol Sulfate Neb 2.5 Mg/3 Ml Inh INHALATION 2.5 mg Q6HRT ROBERT Administration Enoxaparin Sodium 40 mg 01/01/25 09:00 01/02/25 09:35 Enoxaparin 40 Mg/0.4 Ml Syringe SUB-Q 40 mg DAILY ROBERT Administration Furosemide 20 mg 01/02/25 09:00 01/02/25 09:35 Furosemide 20 Mg Tablet PO 20 mg DAILY ROBERT Administration Guaifenesin 600 mg 12/31/24 14:07 Guaifenesin 12 Hr 600 Mg Tabcr PO Q12HR PRN Congestion Ceftriaxone Sodium 1 gm/ 50 mls @ 100 mls/hr 01/01/25 13:00 01/02/25 13:11 Sodium Chloride IVPB Infused Q24H ROBERT Infusion Azithromycin 500 mg/ Sodium 250 mls @ 250 mls/hr 01/01/25 14:00 01/02/25 13:51 Chloride IVPB 01/04/25 14:59 250 mls/hr Q24H ROBERT Infusion Ibuprofen 600 mg 12/31/24 14:07 Ibuprofen 600 Mg Tablet PO Q6H PRN Cramping Levothyroxine Sodium 200 mcg 01/01/25 06:30 01/02/25 05:53 Levothyroxine Sodium 100 Mcg Tablet PO 200 mcg DAILY@0630 ROBERT Administration Losartan Potassium 25 mg 01/01/25 09:00 01/02/25 09:36 Losartan Potassium 25 Mg Tablet PO 25 mg DAILY ROBERT Administration Metoprolol Succinate 50 mg 12/31/24 23:10 01/02/25 09:35 Metoprolol Succinate Ext Rel 50 Mg Tabcr PO 50 mg Q12HR ROBERT Administration Mirtazapine 30 mg 12/31/24 23:05 01/01/25 20:28 Mirtazapine 30 Mg Tablet PO 30 mg HS ROBERT Administration Miscellaneous Information 1 each 12/31/24 00:01 Ursodiol 500 Mg Tablet Is Nonform, Can Pt Bring From Home? XX 01/30/25 00:00 CLARIFY ROBERT Miscellaneous Information 1 each 12/31/24 00:01 Vilazodone 40 Mg Tablet Is Nonform, Can Pt Bring From Home? XX 01/30/25 00:00 CLARIFY ROBERT Non-Formulary Medication 500 mg 01/01/25 09:00 Ursodiol PO 01/31/25 08:59 BID ROBERT Non-Formulary Medication 40 mg 01/01/25 09:00 Vilazodone PO 01/31/25 08:59 DAILY ROBERT Perflutren Lipid Microsphere 0 ml 12/31/24 14:10 Perflutren Lipid Microspheres 1.5 Ml Vial Diluted To 10 Ml Total Volume IV PUSH 01/03/25 14:10 ONCE PRN adequate visualization Protocol Potassium Chloride 40 meq 01/01/25 09:00 01/02/25 09:36 Potassium Chloride 20 Meq Er Tablet PO 40 meq DAILY ROBERT Administration Radiology Results: ITS Impressions Chest X-Ray 12/31/24 12:46 Impression: 1: Cardiomegaly with pulmonary edema. Labs Labs: Laboratory Results - last 24 hr 01/02/25 04:25 WBC 8.3 RBC 3.96 L Hgb 11.3 L Hct 36.8 L MCV 92.9 MCH 28.5 MCHC 30.7 L RDW 14.3 Plt Count 326 MPV 9.4 Immature Gran % (Auto) 0.6 H Neut % (Auto) 77.7 H Lymph % (Auto) 4.8 L [place] % (Auto) 12.2 H Eos % (Auto) 4.2 Baso % (Auto) 0.5 Lymph # (Auto) 0.40 L [place] # (Auto) 1.0 H Eos # (Auto) 0.4 H Baso # (Auto) 0.0 Abs Immat Gran (auto) 0.05 H Absolute Neuts (auto) 6.5 Absolute Nucleated RBC 0.000 Nucleated RBC % 0.0 Sodium 130 L Potassium 3.7 Chloride 100 Carbon Dioxide 27 Anion Gap 3 L BUN 15 Creatinine 0.89 Estim Creat Clear Calc 44 Estimated GFR > 60 Glucose 101 Calcium 8.4 Magnesium 2.1 Total Bilirubin 0.6 AST 35 ALT 17 Alkaline Phosphatase 228 H Total Protein 5.7 L Albumin 2.9 L
[2025-01-02] MEDS: MIRTAZAPINE 30 MG TABLET PO (20:34)
[2025-01-02 23:50] LABS: Add Urine Microscopic? YES; Appearance Urine Clear (Clear); Glucose Urine UA Negative (Negative); Leukocyte Esterase Ur Negative LEU/UL (Negative); Nitrate Urine Negative (Negative); Non Pathogenic Casts 0-2; Specific Grav Ur 1.017 (1.001-1.035)
[2025-01-03] VITALS (21 sets, daily range): BP systolic 136–152; BP diastolic 62–80; PULSE 72–92; RESP 17–20; TEMP 36.5–37.6; O2SAT 91–98
[2025-01-03] MEDS: ALBUTEROL SULFATE NEB 2.5 MG/3 ML INH INHALATION ×4 (02:13→20:04)
[2025-01-03] MEDS: LEVOTHYROXINE SODIUM 100 MCG TABLET 200 MCG PO (05:20)
[2025-01-03] MEDS: LOSARTAN POTASSIUM 25 MG TABLET PO (08:47)
[2025-01-03] MEDS: METOPROLOL SUCCINATE EXT REL 50 MG TABCR PO ×2 (08:47→20:19)
[2025-01-03] MEDS: ENOXAPARIN 40 MG/0.4 ML SYRINGE SUB-Q (08:47)
[2025-01-03] MEDS: POTASSIUM CHLORIDE 20 MEQ ER TABLET 40 MEQ PO (08:47)
--- NOTE | 2025-01-03 10:12 | P.PNIM_ITS ---
Progress Note: A&P Assessment and Plan (1) CHF (congestive heart failure): Code(s): I50.9 - Heart failure, unspecified Status: Acute (2) Pneumonia: Code(s): J18.9 - Pneumonia, unspecified organism Status: Acute Plan (1) Acute on chronic diastolic heart failure: Code(s): I50.33 - Acute on chronic diastolic (congestive) heart failure Status: Acute Assessment and Plan: - BNP 8280 - most recent echo (04/2024): Systolic function 55-60%, ventricular septum sigmoid shaped suggestive of hypertrophic cardiomyopathy with no resting LVOT obstruction, diastolic function abnormal, [id number] valvular disease, moderate pulmonary hypertension. - update echo - hold home p.o. Lasix 20 mg daily, increase Lasix 40 mg IV bid iv - monitor I&Os and daily weights - trend renal function (2) Community acquired pneumonia: Qualifiers: Laterality: unspecified laterality Qualified Code(s): J18.9 - Pneumonia, unspecified organism Code(s): J18.9 - Pneumonia, unspecified organism Status: Acute Assessment and Plan: Patient has a cough and shortness breath - CXR: cardiomegaly with pulmonary edema - started on CAP tx: Ceftriaxone and azithromycin on 12/31 - supportive care: Ibuprofen, Mucinex, Albuterol robert - continue supplemental O2 to maintain O2 sat greater than 92%, wean as tolerated. Currently requiring 2L nasal cannula. Repeat chest x-ray : 01/02 Increased left upper lung opacities urinalysis unremarkable (3) CKD (chronic kidney disease): Qualifiers: Chronic kidney disease stage: unspecified stage Qualified Code(s): N18.9 - Chronic kidney disease, unspecified Code(s): N18.9 - Chronic kidney disease, unspecified Status: Chronic Assessment and Plan: - creatinine 0.85, BUN 14, and GFR >60 upon initial evaluation on 12/31 - baseline creatinine: 0.9-1.2 - trend renal function - trend electrolytes, correct as needed (4) Hypertension: Qualifiers: Hypertension type: primary hypertension Qualified Code(s): I10 - Essential (primary) hypertension Code(s): I10 - Essential (primary) hypertension Status: Chronic Assessment and Plan: - chronic, currently 147/86 - continue home medications: Losartan, Metoprolol - monitor Subjective Date/time seen: 01/03/25 10:12 Interval history: I saw exam patient today. Patient feels tired, denies chest pain abdomen pain nausea vomiting Patient walk with administrative assistant receptionist, still has some shortness breath Exam Narrative: GENERAL: Pleasant, in no acute distress. Well-nourished. - EYES: EOMI. Anicteric. - HENT: Moist mucous membranes. - LUNGS: Coarse breath sound bilaterall y - CARDIOVASCULAR: Regular rate and rhyth m. No murmur. No JVD. - ABDOMEN: Soft, non-tender and non-dist ended. No palpable masses. - EXTREMITIES: No edema. Peripheral puls es 2+. Non-tender. - NEUROLOGIC: No focal neurological defi cits. CN II-XII grossly intact. - PSYCHIATRIC: Awake, Alert and oriented x 3. Appropriate mood and affect. - SKIN: No rashes or lesions. Warm. - LYMPH: No cervical lymphadenopathy. Objective Data Vital Signs Vital Signs: Vital Signs - 24 hr 01/02/25 11:25 01/02/25 12:00 01/02/25 13:50 Temperature 100.3 F H Pulse Rate 81 118 H Respiratory Rate 22 H Blood Pressure 150/85 H Pulse Oximetry 88 L 91 Oxygen Delivery Nasal Cannula Oxygen Flow Rate 0.5 01/02/25 14:20 01/02/25 14:25 01/02/25 14:31 Temperature Pulse Rate 74 84 Respiratory Rate 20 20 Blood Pressure Pulse Oximetry 91 Oxygen Delivery Nasal Cannula Oxygen Flow Rate 1 01/02/25 16:00 01/02/25 20:00 01/02/25 20:28 Temperature Pulse Rate 78 84 Respiratory Rate Blood Pressure Pulse Oximetry 94 Oxygen Delivery Nasal Cannula Oxygen Flow Rate 1 01/02/25 20:37 01/02/25 21:30 01/02/25 21:32 Temperature 98.4 F Pulse Rate 84 84 Respiratory Rate 20 Blood Pressure 132/71 Pulse Oximetry 95 94 Oxygen Delivery Nasal Cannula Oxygen Flow Rate 1 01/02/25 21:32 01/02/25 21:39 01/03/25 00:00 Temperature Pulse Rate 80 83 73 Respiratory Rate 20 20 Blood Pressure Pulse Oximetry Oxygen Delivery Oxygen Flow Rate 01/03/25 02:14 01/03/25 02:20 01/03/25 04:00 Temperature Pulse Rate 72 74 78 Respiratory Rate 17 17 Blood Pressure Pulse Oximetry Oxygen Delivery Oxygen Flow Rate 01/03/25 06:00 01/03/25 07:32 01/03/25 07:32 Temperature 98.9 F Pulse Rate 76 77 Respiratory Rate 20 20 Blood Pressure 152/80 H Pulse Oximetry 93 98 Oxygen Delivery Nasal Cannula Oxygen Flow Rate 1 01/03/25 07:41 01/03/25 07:54 01/03/25 08:47 Temperature Pulse Rate 83 80 Respiratory Rate 20 Blood Pressure Pulse Oximetry 91 Oxygen Delivery Room Air Oxygen Flow Rate Intake/Output Intake/Output: Intake & Output 12/31/24 01/01/25 01/02/25 01/03/25 23:59 23:59 23:59 23:59 Intake Total 530 1910 2020.0 200 Output Total 700 2700 925 175 Balance -170 -790 1095.0 25 Meds/Results Medications: Active Medications Generic Name Dose Route Start Last Admin Trade Name Freq PRN Reason Stop Dose Admin Albuterol 2.5 mg 12/31/24 14:00 01/03/25 07:32 Albuterol Sulfate Neb 2.5 Mg/3 Ml Inh INHALATION 2.5 mg Q6HRT ROBERT Administration Enoxaparin Sodium 40 mg 01/01/25 09:00 01/03/25 08:47 Enoxaparin 40 Mg/0.4 Ml Syringe SUB-Q 40 mg DAILY ROBERT Administration Guaifenesin 600 mg 12/31/24 14:07 Guaifenesin 12 Hr 600 Mg Tabcr PO Q12HR PRN Congestion Ceftriaxone Sodium 1 gm/ 50 mls @ 100 mls/hr 01/01/25 13:00 01/02/25 13:11 Sodium Chloride IVPB Infused Q24H ROBERT Infusion Azithromycin 500 mg/ Sodium 250 mls @ 250 mls/hr 01/01/25 14:00 01/02/25 14:12 Chloride IVPB 01/04/25 14:59 Infused Q24H ROBERT Infusion Ibuprofen 600 mg 12/31/24 14:07 Ibuprofen 600 Mg Tablet PO Q6H PRN Cramping Levothyroxine Sodium 200 mcg 01/01/25 06:30 01/03/25 05:20 Levothyroxine Sodium 100 Mcg Tablet PO 200 mcg DAILY@0630 ROBERT Administration Losartan Potassium 25 mg 01/01/25 09:00 01/03/25 08:47 Losartan Potassium 25 Mg Tablet PO 25 mg DAILY ROBERT Administration Metoprolol Succinate 50 mg 12/31/24 23:10 01/03/25 08:47 Metoprolol Succinate Ext Rel 50 Mg Tabcr PO 50 mg Q12HR ROBERT Administration Mirtazapine 30 mg 12/31/24 23:05 01/02/25 20:34 Mirtazapine 30 Mg Tablet PO 30 mg HS ROBERT Administration Miscellaneous Information 1 each 12/31/24 00:01 01/03/25 08:44 Ursodiol 500 Mg Tablet Is Nonform, Can Pt Bring From Home? XX 01/30/25 00:00 Not Given CLARIFY ROBERT Miscellaneous Information 1 each 12/31/24 00:01 01/03/25 08:44 Vilazodone 40 Mg Tablet Is Nonform, Can Pt Bring From Home? XX 01/30/25 00:00 Not Given CLARIFY ROBERT Non-Formulary Medication 500 mg 01/01/25 09:00 Ursodiol PO 01/31/25 08:59 BID ROBERT Non-Formulary Medication 40 mg 01/01/25 09:00 Vilazodone PO 01/31/25 08:59 DAILY ROBERT Perflutren Lipid Microsphere 0 ml 12/31/24 14:10 Perflutren Lipid Microspheres 1.5 Ml Vial Diluted To 10 Ml Total Volume IV PUSH 01/03/25 14:10 ONCE PRN adequate visualization Protocol Potassium Chloride 40 meq 01/01/25 09:00 01/03/25 08:47 Potassium Chloride 20 Meq Er Tablet PO 40 meq DAILY ROBERT Administration Radiology Results: ITS Impressions Chest X-Ray 01/02/25 18:43 IMPRESSION: Increased left upper lung opacities may represent infection in the appropriate clinical context. Pulmonary edema. Small bilateral pleural effusions Labs Labs: Laboratory Results - last 24 hr 01/02/25 23:36 Urine Color Yellow Urine Appearance Clear Urine pH 5.5 Ur Specific [place] 1.017 Urine Protein Trace Urine Glucose (UA) Negative Urine Ketones Negative Ur Blood (Man) Negative Urine Nitrate Negative Urine Bilirubin Negative Urine Urobilinogen 0.2 Ur Leukocyte Esterase Negative Urine RBC 0-2 Urine WBC 0-5 Ur Squamous Epith Cells None seen Urine Bacteria None seen Urine Casts 0-2
[2025-01-03 10:35] LABS: Hematocrit 36.3 % (37.0-47.0); Hemoglobin 11.4 g/dL (12.0-15.0); Immature Granulocyte Percent A 0.6 % (0-0.5); Lymphocytes Absolute Auto 0.47 K/mm3 (0.9-3.2); Mean Corpuscular HGB Conc 31.4 g/dl (32-36); Mean Corpuscular Hemoglobin 28.9 pg (26-34); Mean Corpuscular Volume 91.9 fl (80-100); Nucleated Red Blood Cells Absolute Auto 0.000 K/mm3 (0.0-0.012); Nucleated Red Blood Cells Perc 0.0 % (0.0-0.2); Platelet Count Result 342 k/mm3 (150-375); Red Blood Count 3.95 M/mm3 (4.2-5.4); White Blood Count 8.7 K/mm3 (4.5-10.0)
[2025-01-03] MEDS: SODIUM CHLORIDE 1 GM TABLET PO ×3 (10:47→17:28)
[2025-01-03] MEDS: FUROSEMIDE INJ 40 MG/4 ML VIAL IV PUSH ×2 (10:48→17:28)
[2025-01-03 10:56] LABS: Anion Gap 6 mmol/L (4-12); Blood Urea Nitrogen 14 mg/dL (7-17); Calcium 8.4 mg/dL (8.4-10.2); Carbon Dioxide 28 mmol/L (22-30); Chloride 100 mmol/L (98-107); Estimated CRCL calculation 43 ml/min; Estimated Glomerular Filt Rate 58; Glucose 121 mg/dL (65-110); Potassium 4.2 mmol/L (3.4-5.0); Sodium 134 mmol/L (137-145)
[2025-01-03] MEDS: cefTRIAXone 1 GM in SODIUM CHLORIDE 0.9% IV 50 ML 100 ML IVPB (12:53)
[2025-01-03] MEDS: AZITHROMYCIN IV 500 MG in SODIUM CHLORIDE 0.9% IV 250 ML IVPB (13:18)
[2025-01-03] MEDS: MIRTAZAPINE 30 MG TABLET PO (20:20)
[2025-01-04] VITALS (18 sets, daily range): BP systolic 132–147; BP diastolic 63–84; PULSE 65–112; RESP 18–20; TEMP 36.2–37.1; O2SAT 92–100
[2025-01-04] MEDS: ALBUTEROL SULFATE NEB 2.5 MG/3 ML INH INHALATION ×4 (01:28→20:45)
[2025-01-04 05:14] LABS: Hematocrit 36.2 % (37.0-47.0); Hemoglobin 11.3 g/dL (12.0-15.0); Immature Granulocyte Percent A 0.8 % (0-0.5); Lymphocytes Absolute Auto 0.51 K/mm3 (0.9-3.2); Mean Corpuscular HGB Conc 31.2 g/dl (32-36); Mean Corpuscular Hemoglobin 28.4 pg (26-34); Mean Corpuscular Volume 91.0 fl (80-100); Nucleated Red Blood Cells Absolute Auto 0.000 K/mm3 (0.0-0.012); Nucleated Red Blood Cells Perc 0.0 % (0.0-0.2); Platelet Count Result 347 k/mm3 (150-375); Red Blood Count 3.98 M/mm3 (4.2-5.4); White Blood Count 7.7 K/mm3 (4.5-10.0)
[2025-01-04] MEDS: LEVOTHYROXINE SODIUM 100 MCG TABLET 200 MCG PO (05:16)
[2025-01-04 05:36] LABS: Anion Gap 4 mmol/L (4-12); Blood Urea Nitrogen 17 mg/dL (7-17); Calcium 8.5 mg/dL (8.4-10.2); Carbon Dioxide 30 mmol/L (22-30); Chloride 102 mmol/L (98-107); Estimated CRCL calculation 37 ml/min; Estimated Glomerular Filt Rate 49; Glucose 107 mg/dL (65-110); Potassium 4.0 mmol/L (3.4-5.0); Sodium 136 mmol/L (137-145)
[2025-01-04] MEDS: METOPROLOL SUCCINATE EXT REL 50 MG TABCR PO ×2 (08:47→21:20)
[2025-01-04] MEDS: SODIUM CHLORIDE 1 GM TABLET PO ×3 (08:47→16:03)
[2025-01-04] MEDS: LOSARTAN POTASSIUM 25 MG TABLET PO (08:47)
[2025-01-04] MEDS: ENOXAPARIN 40 MG/0.4 ML SYRINGE SUB-Q (08:48)
[2025-01-04] MEDS: POTASSIUM CHLORIDE 20 MEQ ER TABLET 40 MEQ PO (08:48)
[2025-01-04] MEDS: FUROSEMIDE INJ 40 MG/4 ML VIAL IV PUSH ×2 (08:49→16:03)
--- NOTE | 2025-01-04 09:28 | PM.IMPN ---
Progress Note: A&P Assessment and Plan (1) CHF (congestive heart failure): Code(s): I50.9 - Heart failure, unspecified Status: Acute (2) Pneumonia: Code(s): J18.9 - Pneumonia, unspecified organism Status: Acute Plan (1) Acute on chronic diastolic heart failure: Code(s): I50.33 - Acute on chronic diastolic (congestive) heart failure Status: Acute Assessment and Plan: - BNP 8280 - most recent echo (04/2024): Systolic function 55-60%, ventricular septum sigmoid shaped suggestive of hypertrophic cardiomyopathy with no resting LVOT obstruction, diastolic function abnormal, [id number] valvular disease, moderate pulmonary hypertension. - update echo - hold home p.o. Lasix 20 mg daily, increase Lasix 40 mg IV bid iv - monitor I&Os and daily weights; negative input output 1.5 L yesterday Kidney function is stable (2) Community acquired pneumonia: Qualifiers: Laterality: unspecified laterality Qualified Code(s): J18.9 - Pneumonia, unspecified organism Code(s): J18.9 - Pneumonia, unspecified organism Status: Acute Assessment and Plan: Patient has a cough and shortness breath - CXR: cardiomegaly with pulmonary edema - started on CAP tx: Ceftriaxone and azithromycin on 12/31 - supportive care: Ibuprofen, Mucinex, Albuterol robert - continue supplemental O2 to maintain O2 sat greater than 92%, wean as tolerated. Currently requiring 2L nasal cannula. Repeat chest x-ray : 01/02 Increased left upper lung opacities urinalysis unremarkable Changed to Augmentin p.o. today for total 7 days. Discussed with ID pharmacist (3) Qualifiers: Chronic kidney disease stage: unspecified stage Qualified Code(s): N18.9 - Chronic kidney disease, unspecified Code(s): N18.9 - Chronic kidney disease, unspecified Status: Chronic Assessment and Plan: - creatinine 0.85, BUN 14, and GFR >60 upon initial evaluation on 12/31 - baseline creatinine: 0.9-1.2 Patient on IV Lasix, creatinine is stable (4) Hypertension: Qualifiers: Hypertension type: primary hypertension Qualified Code(s): I10 - Essential (primary) hypertension Code(s): I10 - Essential (primary) hypertension Status: Chronic Assessment and Plan: - chronic, currently 147/86 - continue home medications: Losartan, Metoprolol - monitor Patient has a general weakness, may benefit from rehab [facility] Consult PT OT adoption social worker for evaluation and assisting placement Subjective Date/time seen: 01/04/25 09:28 Interval history: I saw exam patient today. Patient feels better today, dyspnea is improving Patient has a negative balance input output about 1.5 L Patient still has general weakness Denies lightheadedness, focal weakness Exam Narrative: GENERAL: Pleasant, in no acute distress. Well-nourished. - EYES: EOMI. Anicteric. - HENT: Moist mucous membranes. - LUNGS: Coarse breath sound bilaterally - CARDIOVASCULAR: Regular rate and rhythm. No murmur. No JVD. - ABDOMEN: Soft, non-tender and non-distended. No palpable masses. - EXTREMITIES: No edema. Peripheral pulses 2+. Non-tender. - NEUROLOGIC: No focal neurological deficits. CN II-XII grossly intact. - PSYCHIATRIC: Awake, Alert and oriented x 3. Appropriate mood and affect. - SKIN: No rashes or lesions. Warm. - LYMPH: No cervical lymphadenopathy. Objective Data Vital Signs Vital Signs: Vital Signs - 24 hr 01/03/25 12:00 01/03/25 13:28 01/03/25 13:33 Temperature Pulse Rate 90 92 89 Respiratory Rate 20 20 Blood Pressure Pulse Oximetry Oxygen Delivery Oxygen Flow Rate 01/03/25 14:00 01/03/25 16:00 01/03/25 20:00 Temperature 99.6 F Pulse Rate 87 87 81 Respiratory Rate 20 Blood Pressure 136/62 Pulse Oximetry 93 Oxygen Delivery Oxygen Flow Rate 01/03/25 20:04 01/03/25 20:06 01/03/25 20:12 Temperature Pulse Rate 80 80 Respiratory Rate 20 Blood Pressure Pulse Oximetry 94 96 Oxygen Delivery Nasal Cannula Nasal Cannula Oxygen Flow Rate 1 1 01/03/25 20:14 01/03/25 20:19 01/04/25 00:00 Temperature 97.7 F Pulse Rate 78 78 79 Respiratory Rate 18 Blood Pressure 137/68 Pulse Oximetry 96 Oxygen Delivery Oxygen Flow Rate 01/04/25 01:28 01/04/25 04:00 01/04/25 05:27 Temperature 97.7 F Pulse Rate 65 79 68 Respiratory Rate 20 18 Blood Pressure 147/83 H Pulse Oximetry 96 Oxygen Delivery Oxygen Flow Rate 01/04/25 08:25 01/04/25 08:25 01/04/25 08:33 Temperature Pulse Rate 79 77 Respiratory Rate 20 20 Blood Pressure Pulse Oximetry 92 Oxygen Delivery Nasal Cannula Oxygen Flow Rate 1 01/04/25 08:47 Temperature Pulse Rate 80 Respiratory Rate Blood Pressure Pulse Oximetry Oxygen Delivery Oxygen Flow Rate Intake/Output Intake/Output: Intake & Output 01/01/25 01/02/25 01/03/25 01/04/25 23:59 23:59 23:59 23:59 Intake Total 1910 2020.0 1460 Output Total 2700 925 1925 550 Balance -790 1095.0 -465 -550 Meds/Results Medications: Active Medications Generic Name Dose Route Start Last Admin Trade Name Freq PRN Reason Stop Dose Admin Albuterol 2.5 mg 12/31/24 14:00 01/04/25 08:25 Albuterol Sulfate Neb 2.5 Mg/3 Ml Inh INHALATION 2.5 mg Q6HRT ROBERT Administration Enoxaparin Sodium 40 mg 01/01/25 09:00 01/04/25 08:48 Enoxaparin 40 Mg/0.4 Ml Syringe SUB-Q 40 mg DAILY ROBERT Administration Furosemide 40 mg 01/03/25 17:00 01/04/25 08:49 Furosemide Inj 40 Mg/4 Ml Vial IV PUSH 40 mg BID ROBERT Administration Guaifenesin 600 mg 12/31/24 14:07 Guaifenesin 12 Hr 600 Mg Tabcr PO Q12HR PRN Congestion Ceftriaxone Sodium 1 gm/ 50 mls @ 100 mls/hr 01/01/25 13:00 01/03/25 13:23 Sodium Chloride IVPB Infused Q24H ROBERT Infusion Azithromycin 500 mg/ Sodium 250 mls @ 250 mls/hr 01/01/25 14:00 01/03/25 14:18 Chloride IVPB 01/04/25 14:59 Infused Q24H ROBERT Infusion Ibuprofen 600 mg 12/31/24 14:07 Ibuprofen 600 Mg Tablet PO Q6H PRN Cramping Levothyroxine Sodium 200 mcg 01/01/25 06:30 01/04/25 05:16 Levothyroxine Sodium 100 Mcg Tablet PO 200 mcg DAILY@0630 ROBERT Administration Losartan Potassium 25 mg 01/01/25 09:00 01/04/25 08:47 Losartan Potassium 25 Mg Tablet PO 25 mg DAILY ROBERT Administration Metoprolol Succinate 50 mg 12/31/24 23:10 01/04/25 08:47 Metoprolol Succinate Ext Rel 50 Mg Tabcr PO 50 mg Q12HR ROBERT Administration Mirtazapine 30 mg 12/31/24 23:05 01/03/25 20:20 Mirtazapine 30 Mg Tablet PO 30 mg HS ROBERT Administration Potassium Chloride 40 meq 01/01/25 09:00 01/04/25 08:48 Potassium Chloride 20 Meq Er Tablet PO 40 meq DAILY ROBERT Administration Sodium Chloride 1 gm 01/03/25 10:30 01/04/25 08:47 Sodium Chloride 1 Gm Tablet PO 1 gm TID ROBERT Administration Radiology Results: ITS Impressions Chest X-Ray 01/02/25 18:43 IMPRESSION: Increased left upper lung opacities may represent infection in the appropriate clinical context. Pulmonary edema. Small bilateral pleural effusions Labs Labs: Laboratory Results - last 24 hr 01/03/25 01/04/25 10:25 04:47 WBC 8.7 7.7 RBC 3.95 L 3.98 L Hgb 11.4 L 11.3 L Hct 36.3 L 36.2 L MCV 91.9 91.0 MCH 28.9 28.4 MCHC 31.4 L 31.2 L RDW 14.3 14.3 Plt Count 342 347 MPV 8.7 9.0 Immature Gran % (Auto) 0.6 H 0.8 H Neut % (Auto) 80.7 H 76.2 H Lymph % (Auto) 5.4 L 6.7 L [place] % (Auto) 11.0 H 11.7 H Eos % (Auto) 1.8 3.9 Baso % (Auto) 0.5 0.7 Lymph # (Auto) 0.47 L 0.51 L [place] # (Auto) 1.0 H 0.9 H Eos # (Auto) 0.2 0.3 Baso # (Auto) 0.0 0.1 Abs Immat Gran (auto) 0.05 H 0.06 H Absolute Neuts (auto) 7.1 H 5.8 Absolute Nucleated RBC 0.000 0.000 Nucleated RBC % 0.0 0.0 Sodium 134 L 136 L Potassium 4.2 4.0 Chloride 100 102 Carbon Dioxide 28 30 Anion Gap 6 4 BUN 14 17 Creatinine 0.92 1.08 H Estim Creat Clear Calc 43 37 Estimated GFR 58 L 49 L Glucose 121 H 107 Calcium 8.4 8.5
[2025-01-04] MEDS: cefTRIAXone 1 GM in SODIUM CHLORIDE 0.9% IV 50 ML 100 ML IVPB (12:40)
[2025-01-04] MEDS: AZITHROMYCIN 250 MG TABLET 500 MG PO (13:27)
[2025-01-04] MEDS: MIRTAZAPINE 30 MG TABLET PO (21:19)
[2025-01-05] VITALS (22 sets, daily range): BP systolic 127–140; BP diastolic 53–81; PULSE 71–87; RESP 18–20; TEMP 36.2–36.6; O2SAT 91–100
[2025-01-05] MEDS: ALBUTEROL SULFATE NEB 2.5 MG/3 ML INH INHALATION ×4 (02:08→20:29)
[2025-01-05] MEDS: LEVOTHYROXINE SODIUM 100 MCG TABLET 200 MCG PO (05:46)
[2025-01-05 09:10] LABS: Hematocrit 37.4 % (37.0-47.0); Hemoglobin 11.8 g/dL (12.0-15.0); Immature Granulocyte Percent A 0.6 % (0-0.5); Lymphocytes Absolute Auto 0.45 K/mm3 (0.9-3.2); Mean Corpuscular HGB Conc 31.6 g/dl (32-36); Mean Corpuscular Hemoglobin 28.9 pg (26-34); Mean Corpuscular Volume 91.7 fl (80-100); Nucleated Red Blood Cells Absolute Auto 0.000 K/mm3 (0.0-0.012); Nucleated Red Blood Cells Perc 0.0 % (0.0-0.2); Platelet Count Result 403 k/mm3 (150-375); Red Blood Count 4.08 M/mm3 (4.2-5.4); White Blood Count 7.8 K/mm3 (4.5-10.0)
[2025-01-05] MEDS: FUROSEMIDE INJ 40 MG/4 ML VIAL IV PUSH (09:12)
[2025-01-05] MEDS: SODIUM CHLORIDE 1 GM TABLET PO ×3 (09:12→17:39)
[2025-01-05] MEDS: POTASSIUM CHLORIDE 20 MEQ ER TABLET 40 MEQ PO (09:12)
[2025-01-05] MEDS: METOPROLOL SUCCINATE EXT REL 50 MG TABCR PO ×2 (09:13→20:57)
[2025-01-05] MEDS: ENOXAPARIN 40 MG/0.4 ML SYRINGE SUB-Q (09:14)
[2025-01-05] MEDS: LOSARTAN POTASSIUM 25 MG TABLET PO (09:14)
[2025-01-05 09:36] LABS: Anion Gap 5 mmol/L (4-12); Blood Urea Nitrogen 20 mg/dL (7-17); Calcium 8.7 mg/dL (8.4-10.2); Carbon Dioxide 32 mmol/L (22-30); Chloride 100 mmol/L (98-107); Estimated CRCL calculation 38 ml/min; Estimated Glomerular Filt Rate 50; Glucose 117 mg/dL (65-110); Potassium 3.8 mmol/L (3.4-5.0); Sodium 137 mmol/L (137-145)
--- NOTE | 2025-01-05 09:45 | PM.IMPN ---
Progress Note: A&P Assessment and Plan (1) CHF (congestive heart failure): Code(s): I50.9 - Heart failure, unspecified Status: Acute (2) Pneumonia: Code(s): J18.9 - Pneumonia, unspecified organism Status: Acute Plan Acute on chronic diastolic heart failure: Code(s): I50.33 - Acute on chronic diastolic (congestive) heart failure Status: Acute Assessment and Plan: - BNP 8280 - most recent echo (04/2024): Systolic function 55-60%, ventricular septum sigmoid shaped suggestive of hypertrophic cardiomyopathy with no resting LVOT obstruction, diastolic function abnormal, [id number] valvular disease, moderate pulmonary hypertension. - update echo Transition from home p.o. Lasix 20 mg daily to Lasix 40 mg IV bid iv - monitor I&Os and daily weights; negative input output 1.5 L 01/04 Kidney function is stable Compensated Changed to Lasix 20 mg b.i.d. p.o. Community acquired pneumonia: Qualifiers: Laterality: unspecified laterality Qualified Code(s): J18.9 - Pneumonia, unspecified organism Code(s): J18.9 - Pneumonia, unspecified organism Status: Acute Assessment and Plan: Patient has a cough and shortness breath - CXR: cardiomegaly with pulmonary edema - started on CAP tx: Ceftriaxone and azithromycin on 12/31 - supportive care: Ibuprofen, Mucinex, Albuterol robert - continue supplemental O2 to maintain O2 sat greater than 92%, wean as tolerated. Currently requiring 2L nasal cannula. Repeat chest x-ray : 01/02 Increased left upper lung opacities urinalysis unremarkable Changed to Augmentin p.o. today for total 7 days. Discussed with ID pharmacist Qualifiers: Chronic kidney disease stage: unspecified stage Qualified Code(s): N18.9 - Chronic kidney disease, unspecified Code(s): N18.9 - Chronic kidney disease, unspecified Status: Chronic Assessment and Plan: - creatinine 0.85, BUN 14, and GFR >60 upon initial evaluation on 12/31 - baseline creatinine: 0.9-1.2 Patient on IV Lasix, creatinine is stable (4) Hypertension: Qualifiers: Hypertension type: primary hypertension Qualified Code(s): I10 - Essential (primary) hypertension Code(s): I10 - Essential (primary) hypertension Status: Chronic Assessment and Plan: - chronic, currently 147/86 - continue home medications: Losartan, Metoprolol - monitor Patient has a general weakness, may benefit from rehab [facility] Consult PT OT marriage and family social worker for evaluation and assisting placement Subjective Date/time seen: 01/05/25 09:45 Interval history: I saw exam patient today. Patient has a negative balance input output about 1.3 L Patient still has general weakness, but exercise tolerance has increased Denies lightheadedness, focal weakness, dyspnea at rest Exam Narrative: GENERAL: Pleasant, in no acute distress. Well-nourished. - EYES: EOMI. Anicteric. - HENT: Moist mucous membranes. - LUNGS: Lungs clear - CARDIOVASCULAR: Regular rate and rhythm. No murmur. No JVD. - ABDOMEN: Soft, non-tender and non-distended. No palpable masses. - EXTREMITIES: No edema. Peripheral pulses 2+. Non-tender. - NEUROLOGIC: No focal neurological deficits. CN II-XII grossly intact. - PSYCHIATRIC: Awake, Alert and oriented x 3. Appropriate mood and affect. - SKIN: No rashes or lesions. Warm. - LYMPH: No cervical lymphadenopathy. Objective Data Vital Signs Vital Signs: Vital Signs - 24 hr 01/04/25 12:00 01/04/25 13:48 01/04/25 13:54 Temperature Pulse Rate 77 85 82 Respiratory Rate 20 20 Blood Pressure Pulse Oximetry Oxygen Delivery Oxygen Flow Rate 01/04/25 14:00 01/04/25 16:00 01/04/25 20:00 Temperature 98.7 F Pulse Rate 83 88 112 H Respiratory Rate 18 Blood Pressure 145/84 H Pulse Oximetry 100 Oxygen Delivery Oxygen Flow Rate 01/04/25 20:45 01/04/25 20:53 01/04/25 21:20 Temperature Pulse Rate 77 82 82 Respiratory Rate 20 20 Blood Pressure Pulse Oximetry Oxygen Delivery Oxygen Flow Rate 01/04/25 21:54 01/05/25 00:00 01/05/25 02:08 Temperature 97.2 F L Pulse Rate 92 83 79 Respiratory Rate 20 20 Blood Pressure 132/63 Pulse Oximetry 96 Oxygen Delivery Oxygen Flow Rate 01/05/25 02:18 01/05/25 04:00 01/05/25 05:38 Temperature 97.8 F Pulse Rate 77 77 71 Respiratory Rate 20 18 Blood Pressure 127/81 Pulse Oximetry 100 Oxygen Delivery Oxygen Flow Rate 01/05/25 07:23 01/05/25 07:27 01/05/25 07:28 Temperature Pulse Rate 75 78 Respiratory Rate 18 20 Blood Pressure Pulse Oximetry 96 Oxygen Delivery Nasal Cannula Oxygen Flow Rate 4 01/05/25 09:13 Temperature Pulse Rate 83 Respiratory Rate Blood Pressure Pulse Oximetry Oxygen Delivery Oxygen Flow Rate Intake/Output Intake/Output: Intake & Output 01/02/25 01/03/25 01/04/25 01/05/25 23:59 23:59 23:59 23:59 Intake Total 2020.0 1460 720 690 Output Total 925 1925 3050 350 Balance 1095.0 -465 -2330 340 Meds/Results Medications: Active Medications Generic Name Dose Route Start Last Admin Trade Name Freq PRN Reason Stop Dose Admin Albuterol 2.5 mg 12/31/24 14:00 01/05/25 07:23 Albuterol Sulfate Neb 2.5 Mg/3 Ml Inh INHALATION 2.5 mg Q6HRT ROBERT Administration Amoxicillin/Clavulanate Potassium 1 tablet 01/04/25 13:00 01/05/25 09:13 Amoxicillin/Clavulanate K 875-125 Mg Tab PO 01/06/25 21:01 1 tablet Q12HR ROBERT Administration Enoxaparin Sodium 40 mg 01/01/25 09:00 01/05/25 09:14 Enoxaparin 40 Mg/0.4 Ml Syringe SUB-Q 40 mg DAILY ROBERT Administration Furosemide 40 mg 01/03/25 17:00 01/05/25 09:12 Furosemide Inj 40 Mg/4 Ml Vial IV PUSH 40 mg BID ROBERT Administration Guaifenesin 600 mg 12/31/24 14:07 Guaifenesin 12 Hr 600 Mg Tabcr PO Q12HR PRN Congestion Ibuprofen 600 mg 12/31/24 14:07 Ibuprofen 600 Mg Tablet PO Q6H PRN Cramping Levothyroxine Sodium 200 mcg 01/01/25 06:30 01/05/25 05:46 Levothyroxine Sodium 100 Mcg Tablet PO 200 mcg DAILY@0630 ROBERT Administration Losartan Potassium 25 mg 01/01/25 09:00 01/05/25 09:14 Losartan Potassium 25 Mg Tablet PO 25 mg DAILY ROBERT Administration Metoprolol Succinate 50 mg 12/31/24 23:10 01/05/25 09:13 Metoprolol Succinate Ext Rel 50 Mg Tabcr PO 50 mg Q12HR ROBERT Administration Mirtazapine 30 mg 12/31/24 23:05 01/04/25 21:19 Mirtazapine 30 Mg Tablet PO 30 mg HS ROBERT Administration Potassium Chloride 40 meq 01/01/25 09:00 01/05/25 09:12 Potassium Chloride 20 Meq Er Tablet PO 40 meq DAILY ROBERT Administration Sodium Chloride 1 gm 01/03/25 10:30 01/05/25 09:12 Sodium Chloride 1 Gm Tablet PO 1 gm TID ROBERT Administration Radiology Results: ITS Impressions Chest X-Ray 01/02/25 18:43 IMPRESSION: Increased left upper lung opacities may represent infection in the appropriate clinical context. Pulmonary edema. Small bilateral pleural effusions Labs Labs: Laboratory Results - last 24 hr 01/05/25 08:33 WBC 7.8 RBC 4.08 L Hgb 11.8 L Hct 37.4 MCV 91.7 MCH 28.9 MCHC 31.6 L RDW 14.2 Plt Count 403 H MPV 9.0 Immature Gran % (Auto) 0.6 H Neut % (Auto) 78.1 H Lymph % (Auto) 5.8 L [place] % (Auto) 10.9 H Eos % (Auto) 4.0 Baso % (Auto) 0.6 Lymph # (Auto) 0.45 L [place] # (Auto) 0.9 H Eos # (Auto) 0.3 Baso # (Auto) 0.1 Abs Immat Gran (auto) 0.05 H Absolute Neuts (auto) 6.1 Absolute Nucleated RBC 0.000 Nucleated RBC % 0.0 Sodium 137 Potassium 3.8 Chloride 100 Carbon Dioxide 32 H Anion Gap 5 BUN 20 H Creatinine 1.05 H Estim Creat Clear Calc 38 Estimated GFR 50 L Glucose 117 H Calcium 8.7
[2025-01-05] MEDS: FUROSEMIDE 20 MG TABLET PO (17:39)
[2025-01-05] MEDS: MIRTAZAPINE 30 MG TABLET PO (20:57)
[2025-01-06] VITALS (17 sets, daily range): BP systolic 130–142; BP diastolic 56–72; PULSE 72–92; RESP 18–20; TEMP 36.2–36.8; O2SAT 89–97
[2025-01-06] MEDS: ALBUTEROL SULFATE NEB 2.5 MG/3 ML INH INHALATION ×3 (02:16→13:21)
[2025-01-06] MEDS: LEVOTHYROXINE SODIUM 100 MCG TABLET 200 MCG PO (05:31)
[2025-01-06] MEDS: POTASSIUM CHLORIDE 20 MEQ ER TABLET 40 MEQ PO (08:24)
[2025-01-06] MEDS: SODIUM CHLORIDE 1 GM TABLET PO (08:24)
[2025-01-06] MEDS: ENOXAPARIN 40 MG/0.4 ML SYRINGE SUB-Q (08:24)
[2025-01-06] MEDS: LOSARTAN POTASSIUM 25 MG TABLET PO (08:25)
[2025-01-06] MEDS: FUROSEMIDE 20 MG TABLET PO (08:25)
[2025-01-06] MEDS: METOPROLOL SUCCINATE EXT REL 50 MG TABCR PO (08:25)
--- NOTE | 2025-01-06 14:16 | PM.DS ---
DS: Admitting Diagnosis Discharge Date 01/06/2025 Admitting Diagnosis Shortness of breath DS: Discharge Diagnosis Discharge Diagnosis (1) CHF (congestive heart failure): Code(s): I50.9 - Heart failure, unspecified Status: Acute (2) Hypertension: Qualifiers: Hypertension type: primary hypertension Qualified Code(s): I10 - Essential (primary) hypertension Code(s): I10 - Essential (primary) hypertension Status: Chronic (3) Community acquired pneumonia: Qualifiers: Laterality: unspecified laterality Qualified Code(s): J18.9 - Pneumonia, unspecified organism Code(s): J18.9 - Pneumonia, unspecified organism Status: Acute (4) CKD (chronic kidney disease): Qualifiers: Chronic kidney disease stage: unspecified stage Qualified Code(s): N18.9 - Chronic kidney disease, unspecified Code(s): N18.9 - Chronic kidney disease, unspecified Status: Chronic DS: Summary Hospital Course Hospital Course: 84 y/o F with PMH of Afib, CHF, CKD, Sjogren's, Meniere's, hypertension, hyperlipidemia, primary biliary cirrhosis, and hypothyroidism presents here with shortness of breath. The patient presents here from home via EMS for further evaluation of shortness of breath. She reports onset approximately 5-6 days prior to admission which was concurrent with the patient self holding her diuretic. She reports she stopped taking it as it was inconvenient, she was not feeling well and wanted to stay in bed, and her legs were not swollen at the time. Shortness of breath is accompanied by worsening lower extremity edema, wheezing, increased sputum production, fever (highest at home was 101.3F), chills, minimal diarrhea, and cough. She denies chest pain, nausea, or vomiting. Per EMS report, the patient was hypoxic in the 80s on room air upon their arrival. She was initially saturating 99% on 2L nasal cannula. She was trialed on room air and her O2 saturation dropped to 86-89%. Initial VS at presentation: 97.6? F, HR 97, RR 24, 154/118, and 99% on 2L nasal cannula. ED workup showed: No leukocytosis, no anemia, no significant electrolyte derangements, renal function within normal limits, glucose 112, lactic 1.5, CRP 12.2, BNP 8280, and UA showed trace leuk esterase otherwise unremarkable. CXR showed cardiomegaly with pulmonary edema. --- Updated TTE on 01/01/2025: 1. Complete two-dimensional, color flow and Doppler transthoracic echocardiogram is performed. 2. Moderate left atrial enlargement. 3. Left ventricular hypertrophy with preserved systolic function. 4. Trivial MR. 5. Mildly sclerotic aortic valve with well maintained leaflet excursion. 6. Mild RV dysfunction. 7. Moderate tricuspid regurgitation velocity of this indicates evidence of severely elevated pulmonary artery pressure. Acute decompensated diastolic heart failure treated with Lasix 40 mg IV b.i.d., transition to Lasix 20 mg p.o. b.i.d.. Breathing well on room air, lower extremity edema resolved. Patient declined to be discharged to longterm for rehab. Although, she did do well with therapy. Discharged to home with home health in stable condition Community-acquired pneumonia, suspected bacterial treated with ceftriaxone and azithromycin, which was transition to Augmentin p.o. for total 7 days. CKD stable. Patient was full code during the admission. Reports she has f/u with cardiology, advised it is important to keep and follow up on heart failure. Time Spent with Patient Time attestation: Total time spent providing and/or coordinating discharge services: Time spent: Greater than 30 minutes Exam Const: General: comfortable and no acute distress Eyes: Pupils: Equal, round and reactive pupils present Neck: Neck: supple Resp: Effort & Inspection: normal respiratory effort Auscultation: clear to auscultation bilaterally Cardio: Rate: regular rate Rhythm: regular rhythm GI: Inspection: non-distended GI Palp: Yes Soft to palpation Extrem: General: no edema Discharge Plan Discharge Attending physician on discharge: Cece Gonzalez Consulting providers: Kacey Faye Discharging Clinician: Cece Gonzalez Patient Disposition: Home with Home Health Service Activity: no shower Diet: as tolerated Patient Instructions: Antibiotic Form, Heart Failure (DC) Patient Language: Gabonese Stand Alone Forms: General Discharge Information Follow-up/Referrals: Kartik Hines DO [Primary Care Provider] - Discharge Medications: New furosemide 20 mg Tablet 20 mg PO BID Qty: 60 0RF Continued potassium chloride 20 mEq tablet extended release 40 meq PO DAILY levothyroxine 200 mcg tablet 200 mcg PO DAILY vilazodone 40 mg tablet 40 mg PO DAILY mirtazapine 30 mg tablet 30 mg PO QHS ursodiol 500 mg tablet 500 mg PO BID Qty: 180 2RF metoprolol succinate 50 mg tablet extended release 24 hr See Rx Instructions .ROUTE .COMPLEX Qty: 180 0RF Dose Instruction: TAKE 1 TABLET BY MOUTH TWICE A DAY Rx Instructions: TAKE 1 TABLET BY MOUTH TWICE A DAY losartan 25 mg tablet 25 mg PO DAILY Qty: 90 1RF Discontinued furosemide 40 mg tablet 20 mg PO DAILY Date of admission: 01/02/25 10:43 Primary Care Provider: Kartik Hines Admitting Provider: Andree Gomez Attending physician on admission: Andree Gomez Condition: Improved Hospitalist MIPS Heart Failure (Exclusion) Patient has history of Heart Transplant or Left Ventricular Assistive Device?: No IF YES, STOP HERE Heart Failure (Qualifier) Patient has current or prior documentation of LVEF less than or equal to 40%, or mod/servere depressed LVSF?: No IF NO, STOP HERE
== END 2025-01-06 15:45 | disposition home health service (06) | DRG 193 ==
LOC: ANHED 12:02 → ANH2MED 13:57
PROVIDERS: Hospitalist; Nurse Practitioner Adult Health; Student in an Organized Health Care Education/Training Program; Admitting Provider Family Medicine; Emergency Provider Emergency Medicine; PCP Internal Medicine; Visit Provider General Practice
DX: J18.9 Pneumonia, unspecified organism (principal); I50.33 Acute on chronic diastolic (congestive) heart failure; I13.0 Hypertensive heart and chronic kidney disease with heart failure and stage 1 through stage 4 chronic kidney disease, or unspecified chronic kidney disease; I42.1 Obstructive hypertrophic cardiomyopathy; N18.9 Chronic kidney disease, unspecified; F41.8 Other specified anxiety disorders; I48.0 Paroxysmal atrial fibrillation; E78.5 Hyperlipidemia, unspecified; E03.9 Hypothyroidism, unspecified; K74.3 Primary biliary cirrhosis; Z96.659 Presence of unspecified artificial knee joint; Z85.828 Personal history of other malignant neoplasm of skin; Z90.49 Acquired absence of other specified parts of digestive tract; Z90.710 Acquired absence of both cervix and uterus
CPT/HCPCS: 36415; 53060; 71045; 80048; 80053; 81001; 83605; 83735; 83880; 85025; 85610; 85730; 86140; 87040; 93005; 93306; 94640; 96365; 96366; 96367; 96372; 96375; 96376; 97161; 97165; 99215; A9270; G0378; G0463; J0456; J0696; J1650; J1938; J7040; J7050

== ENCOUNTER 2025-01-11 12:40 | Emergency (ER) | payer MEDICARE, SELFPAY ==
--- NOTE | ~2025-01-11 | XR_ITS ---
EXAMINATION: XR chest 1V portable DATE: 01/11/2025 13:53 INDICATION: Shortness of breath TECHNIQUE: frontal view of the chest was obtained. COMPARISON: Chest radiograph dated 01/02/2025 FINDINGS: Chronic coarse increased initial pattern in the mid and lower lung zones with mild usual interstitial pneumonia (UIP) pattern chronic interstitial lung disease evident on CT dated 10/19/2023. Difficult t o exclude mild superimposed pulmonary edema. No new airspace opacities, pleural effusion or pneumotho rax. Borderline heart size accounting for AP technique. Cholecystectomy clips in right upper quadrant . IMPRESSION: 1. Unchanged mild diffuse coarse interstitial pattern in the bilateral mid and lower lungs consistent with chronic interstitial lung disease although superimposed mild pulmonary edema cannot be excluded . 2. Borderline heart size. Reviewed, dictated and finalized at location A. IMPRESSION: 1. Unchanged mild diffuse coarse interstitial pattern in the bilateral mid and lower lungs consistent with chronic interstitial lung disease although superimp osed mild pulmonary edema cannot be excluded. 2. Borderline heart size.
[2025-01-11 12:40] VITALS: BP 154/80; PULSE 75; RESP 20; TEMP 36.6; O2SAT 95
--- NOTE | 2025-01-11 13:02 | ECG_ITS ---
Test Date: 2025-01-11 13:10:03 Measurements Intervals Marana Rate: 67 P: 0 NM: 0 QRS: -41 QRSD: 128 T: 108 QT: 415 QTc: 439 Interpretive Statements ATRIAL FIBRILLATION WITH ABERRANT CONDUCTION OR VENTRICULAR PREMATURE COMPLEXES LEFT AXIS DEVIATION INTRAVENTRICULAR CONDUCTION DELAY LEFT VENTRICULAR HYPERTROPHY WITH ST-T CHANGE ANTEROSEPTAL INFARCT, AGE INDETERMINATE BASELINE ARTIFACT- I, II, III, AVR, AVL, AVF, V1-V2 ABNORMAL ECG Compared to ECG 12/31/2024 11:34:21 NO SIGNIFICANT CHANGE Electronically Signed On 01-11-2025 13:22:32 CDT by Donte Esqueda D.O.
--- OUTSIDE RECORDS SUMMARY | 2025-01-11 13:11 | XMS_ITS | Continuity of Care Document ---
Author Organization [facility] Address [address] [place] [address] Phone Care Team Providers Care Physiotherapy Practice Manager Name Role Phone [facility] [...] Diagnoses Date Provider Providers Copied on Encounter [facility], [address], [place], [place], [address], [place] tel:[phone] [facility] No Information Feb-201 0 [facility] . [address] [facility], [address], [place], [place], [address], [place]. tel:[phone] Referring Provider: Pamela Valle, [address], [place], [address]. tel:[phone] wadsworth Provider: Lucita Laura, [address] [place] [address], [address]. tel:[phone] Office/outpat ient Visit, Est [facility], [address], [place], [place], [address], [place] tel:[phone] [facility] No Information Sep- 4-201 0 Odilia Santiago. [address], [address], [place], [address], [place]. tel:[phone] [facility], [address], [place], [place], [address], [place] tel:[phone] [facility] No Information Apr-2 4-200 9 Odilia Santiago. [address], [address], [place], [place], [facility], [place]. tel:[phone] [facility], [address], [place], [place], [address], [place] tel:[phone] [facility] No Information Dec-2 9-200 8 [facility] . [address] [facility], [address], [id number], [place]. tel:[phone] Consulting Provider: Mariah Bolden, [address] [place] [address], [address]. tel:[phone] [facility], [address], [place], [place], [address], [place] tel:[phone] [facility] No Information Aug-0 8-200 8 [facility] . [address] [facility], [address], [place], [place], [address], [place]. tel:[phone] Consulting Provider: Mariah Bolden, [address] [place] [address], [facility]. tel:[phone] [facility], [address], [place], [place], [address], tel:[phone] [facility] No Information Jan-0 8-200 8 Odilia Evans [address] , [address], [place], [place], [facility], . tel:[phone] [facility], [address], [place], [place], [address], tel:[phone] [facility] No Information 0 2200 8 [facility] . [address] [facility], [address], [place], [place], [address], . tel:[phone] Referring Provider: Pamela Valle, [address], [place], [place], [facility]. tel:[phone] g Provider: Mariah Bolden, [address] [place], [place], [facility]. tel:[phone] [facility], [address] [place] [address] [address], [place], [place], [address], tel:[phone] [facility] No Information 0 1200 8 Odilia Evans [address] , [address], [place], [place], [facility], . tel:[phone] [facility], [address] [place] [address] [address], [place], [place], [address], tel:[phone] [facility] No Information 200 7 Odilia Evans [address] , [address], [place], [place], [facility], . tel:[phone] Family History Family Member Type Diagnosis Age [...]
--- OUTSIDE RECORDS SUMMARY | 2025-01-11 13:11 | XMS_ITS ---
Author Organization [facility] [place] ([address]) Address [address] [place] [address] Care Team Providers Care Cocoa Powder Mixer Operator Name Role Phone Kirby Rodarte Primary Care Provider UnavailSophie Cool Unavailable [phone] Mackenzie Obando Unavailable [phone] REASON FOR VISIT ARC follow-up Encounters Encounter Location Date Provider Diagnosis [facility] [address] [place] [address] 08/10/2023 Mackenzie Obando Plan Of Treatment No Information Progress Notes * Bart ACKERMANOB:1940 (84 yo F)Acc No.[id number]:08/10/2023 Progress Notes Patient: Jenniffer WARD Provider: Robin Obando MD :1940 A ge:83 Y S ex:Female Date:08/10/2023 Address:[address], [facility] Pcp:Kirby Rodarte Subjective: * Chief Complaints: * 1 . [facility] follow-up. * Medical History: Objective: * Vitals: Assessment: Plan: * Treatment: * Billing Information: * Visit Code: * Procedure Codes: * Electronic signature of Cony Obando MD on 01/11/2025 at 01:11 PM CDT Sign off status: Pending * Provider: Robin Obando MD Date: 0 08/10/2023 Generated for Giovanni corbin/Latricia/Praful on: 0 01/11/2025 01:11 PM CDT
--- OUTSIDE RECORDS SUMMARY | 2025-01-11 13:11 | XMS_ITS | Patient Health Record ---
Author Organization [facility] [place] ([address]) Address [address] [place] [address] Care Team Providers Care Cnc Cutting Operator Name Role Phone Kirby Rodarte Primary Care Provider Sophie Pereyra Unavailable [phone] Allergies Allergen (clinical drug ingredient) Drug/Non Drug [...] Status Risk Notes Problem Chronic allergic conjunctivitis (79869383) Other chronic allergic conjunctivitis (H10.45) Active confirmed Problem Allergic rhinitis caused by pollen (disorder) (96428619) Allergic rhinitis due to pollen (J30.1) Active confirmed Problem Allergic rhinitis (06248737) Other allergic rhinitis (J30.89) Active confirmed Problem 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 confirmed Problem Allergic rhinitis caused by animal hair and dander (484132549788277) Allergic rhinitis due to animal (cat) (dog) hair and dander (J30.81) Active confirmed Plan Of Treatment No Information Insurance Providers Payer Name Payer Address Payer Phone Subscriber Number Group Number Insured Name Patient Relationship to Insured Coverage Start Date Coverage End Date [employer] Choice POS II [address] [place] [phone] [id number] Jenniffer Cm Self - patient is the insured Medical (General) History Medical History History ICD Code hypothyroidism primary biliary cirrhosis osteoarthritis heart murmur Surgical History Surgery Date(Month/Year) tubal ligation 1973 hysterectomy 1974 cholecystectomy 1987 knee replacements Hospitalization History Reason Date(Month/Year) pneumonia 07/2022 childbirth 1973 childbirth 1968 childbirth 1964 childbirth 1962
--- OUTSIDE RECORDS SUMMARY | 2025-01-11 13:12 | XMS_ITS | Patient Health Record ---
Author Organization [facility] Address [address] [place] [address] Care Team Providers Care Bundle Clerk Name Role Phone Kartik Hines DO Primary Care Provider UnavailAgnieszka Hankins Unavailable [phone] Anoop Robles Unavailable [phone] Allergies Allergen (clinical drug ingredient) Drug/Non Drug [...] Status Risk Notes Problem Generalized anxiety disorder (41283033) Generalized anxiety disorder (F41.1) 07/07/19 Active confirmed Problem Primary insomnia (1239520) Primary insomnia (F51.01) 07/07/19 Active confirmed Problem Amnesia (82848559) Other amnesia (R41.3) 07/07/19 Active confirmed Problem Screening for cardiovascular system disease (007168177) Encounter for screening for cardiovascular disorders (Z13.6) Active confirmed Problem Dietary management surveillance (272710263) Dietary counseling and surveillance (Z71.3) Active confirmed Problem Mild recurrent major depression (19661461) MDD (major depressive disorder), recurrent episode, mild (F33.0) Active confirmed Vital Signs Heart Rate 69 /min 11/08/2024 Respiratory Rate 19 /min 11/08/2024 Blood pressure diastolic 83 mm Hg 11/08/2024 Height-cm 165.10 cm 11/08/2024 Weight-kg 77.11 kg 11/08/2024 Height 65.00 in 11/08/2024 Blood pressure systolic 150 mm Hg 11/08/2024 Weight 175 lbs 09/17/2024 BMI 28.29 kg/m2 11/08/2024 Encounters Encounter Location Date Provider Diagnosis [facility] [place] [address] [address] 02/20/2024 Agnieszka Sorenson MDD (major depressiv e disorder), recurrent episode, mild F33.0 ; Generalized anxiety disorder F41.1 ; Primary insomnia F51.01 and Other amnesia R41.3 [facility] [address] [facility] [address] [address] 09/17/2024 Agnieszka Sorenson MDD (major depressiv e disorder), recurrent episode, mild F33.0 ; Generalized anxiety disorder F41.1 ; Primary insomnia F51.01 ; Other amnesia R41.3 and Encounter for screening for cardiovascular disorders Z13.6 [facility] [place] [address] [address] 11/08/2024 Agnieszka Sorenson Encounter for screen ing for depression Z13.31 ; MDD (major depressive disorder), recurrent episode, mild F33.0 ; Encounter for screening for cardiovascular disorders Z13.6 ; Dietary counseling and surveillance Z71.3 ; Generalized anxiety disorder F41.1 ; Primary insomnia F51.01 and Other amnesia R41.3 [facility] [place] [address] [facility] [address] [address] [place] [address] 04/10/2024 Anoop Robles [facility] [place] [address] [facility] [address] [place] [address] 08/06/2024 Agnieszka Sorenson [facility] [place] [address] [facility] [address] [place] [address] 11/09/2024 Agnieszka Sorenson Assessments Encounter Date Diagnosis (ICD Code) Assessment Notes Treatment Notes Treatment Clinical Notes Section Notes 02/20/2024 MDD (major depressive disorder), recurrent episode, mild (ICD-10 - F33.0) 1. Recurrent major depression - labs recently- will obtain seen product mgmt dev manager recently has AFib Viibyrd 40 mg daily- [...] has dementia labs recently- will obtain seen product mgmt dev manager recently has hx AFib Discuss and educated [...] dementia labs recently PCP- will obtain seen product mgmt dev manager has hx AFib Discuss and educated on [...] dementia labs recently PCP- will obtain seen product mgmt dev manager has hx AFib Discuss and educated on [...] dementia labs recently PCP- will obtain seen product mgmt dev manager has hx AFib Discuss and educated on [...] has dementia labs recently- will obtain seen product mgmt dev manager recently has hx AFib Discuss and educated [...] depression - labs recently- will obtain seen product mgmt dev manager recently has AFib Viibyrd 40 mg daily- [...] depression - labs recently- will obtain seen product mgmt dev manager recently has AFib Viibyrd 40 mg daily- [...] has dementia labs recently- will obtain seen product mgmt dev manager recently has hx AFib Discuss and educated [...] dementia labs recently PCP- will obtain seen product mgmt dev manager has hx AFib Discuss and educated on [...] dementia labs recently PCP- will obtain seen product mgmt dev manager has hx AFib Discuss and educated on [...] has dementia labs recently- will obtain seen product mgmt dev manager recently has hx AFib Discuss and educated [...] depression - labs recently- will obtain seen product mgmt dev manager recently has AFib Viibyrd 40 mg daily- [...] has dementia labs recently- will obtain seen product mgmt dev manager recently has hx AFib Discuss and educated [...] dementia labs recently PCP- will obtain seen product mgmt dev manager has hx AFib Discuss and educated on [...] dementia labs recently PCP- will obtain seen product mgmt dev manager has hx AFib Discuss and educated on [...] monitor 02/20/2024 Other referral to the local [facility] or national office of the Alzheimer's Association ([phone] 0; http://www.alz .org), the Alzheimer's Disease Education and Referral Center ([facility]) ([phone] 0; http://www.halley .nih.gov/Alzhe imers/), 1. 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 seen product mgmt dev manager has hx AFib Discuss and educated on [...] Provider Name:Agnieszka Sorenson , 02/28/2025 02:00:00 PM, [address], [facility] [address], [place], [address], Insurance Providers Payer Name Payer Address Payer Phone Subscriber Number Group Number Insured Name Patient Relationship to Insured Coverage Start Date Coverage End Date Medicare-I l Medicare [address] [place] [phone] [id number] FINA ACKERMAN Self - patient is the insured Aet [address] [place] [address] [id number] FINA ACKERMAN Self - patient is the insured Medical (General) History Medical History History ICD Code Problems: Acute COVID-19 Generalized anxiety disorder Memory impairment Primary insomnia Recurrent major depression , AFIB BILARY Cirrohosis Surgical History Surgery Date(Month/Year) Removal of gallbladder (48557) Hysterectomy (38708) Cataract surgery (38120) Appendectomy (94948) Other
--- OUTSIDE RECORDS SUMMARY | 2025-01-11 13:12 | XMS_ITS | Clinical Summary ---
Author Organization [facility] Address [facility] [facility] [place] [address] Care Team Providers Care Academic Services Professional Name Role Phone Hasmukh Gonzalez MD Primary Care Provider Unavail able Source Comments [facility],non-owned Affiliates and Associated Physician Practices is amultiple site organization consisting of ambulatory clinics and hospital sitesin [place], [place], [place] and [place]. This disclosure is being madepursuant to the Care Everywhere program and may not contain all information available regarding this patient. Last updated 18.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
--- OUTSIDE RECORDS SUMMARY | 2025-01-11 13:12 | XMS_ITS ---
Author Organization [facility] [employer] [place] ([address]) Address [address] [place] [address] Care Team Providers Care Beef Pusher Name Role Phone Kirby Rodarte Primary Care Provider UnavailSophie Cool Unavailable [phone] [employer], Provider Unavailable Unavailab le Allergies Allergen (clinical drug ingredient) Drug/Non Drug Allergy documented on EMR Reaction Allergy Type Onset Date Status CONTRAST DYE (uncoded) other reaction Allergy Active codeine Codeine stomach upset Drug Allergy Act francesca REASON FOR VISIT [facility] Conversion Encounter Medications Medication SIG (Take, [...] Active Encounters Encounter Location Date [facility] [place] [address] 11/19/2023 Provider Lindsay Allergic rhinitis due to [...] Notes * Bart ACKERMANOB:1940 (84 yo F)Acc No.[id number]:11/19/2023 Patient: Jenniffer WARD Provider: David Jeffers :1940 A ge:83 Y S ex:Female Date:11/19/2023 Address:[address] [place] [address], [address] Pcp:Kirby Rodarte Subjective: * Chief Complaints: * 1 . [facility] Conversion Encounter. * Medical History: * [...] Electronic signature of Juan Luis SHAHID-Migration on 01/11/2025 at 01:11 PM CDT Sign off status: Pending * Provider: David coyne Migration Date: 0 11/19/2023 Generated for Giovanni corbin/Latricia/Praful on: 0 01/11/2025 01:11 PM CDT
[2025-01-11 13:22] LABS: Hematocrit 37.6 % (37.0-47.0); Hemoglobin 11.6 g/dL (12.0-15.0); Immature Granulocyte Percent A 0.9 % (0-0.5); Lymphocytes Absolute Auto 0.58 K/mm3 (0.9-3.2); Mean Corpuscular HGB Conc 30.9 g/dl (32-36); Mean Corpuscular Hemoglobin 28.2 pg (26-34); Mean Corpuscular Volume 91.3 fl (80-100); Nucleated Red Blood Cells Absolute Auto 0.000 K/mm3 (0.0-0.012); Nucleated Red Blood Cells Perc 0.0 % (0.0-0.2); Platelet Count Result 421 k/mm3 (150-375); Red Blood Count 4.12 M/mm3 (4.2-5.4); White Blood Count 8.7 K/mm3 (4.5-10.0)
--- NOTE | 2025-01-11 13:22 | ED_ITS ---
HPI - General Adult General Chief complaint: Weakness Stated complaint: weakness Time Seen by Provider: 01/11/25 12:52 History of Present Illness HPI narrative: 84-year-old female history of CHF presents to the emergency department for evaluation for worsening shortness of breath. Patient does have a recent admission to the hospital for noncompliance with her diuretic and pneumonia. Patient was discharged on Tuesday. Patient states at that time she was started on a sodium tablet due to having low-sodium. Patient thought that it was strange that she would be taking his sodium tablets and Lasix so patient did stop taking her Lasix. Patient has not been taking her Lasix since Tuesday. Patient does complain of increased worsening shortness of breath and lower extremity edema. Patient is present with her nephew. Related Data Home Medications ?Medication ?Instructions ?Recorded ?Confirmed ?Last Taken ?Type levothyroxine 200 mcg tablet 200 mcg PO DAILY 10/16/24 12/31/24 Unknown History potassium chloride 20 mEq 40 meq PO DAILY 10/24/24 12/31/24 Unknown History tablet,extended release mirtazapine 30 mg tablet 30 mg PO QHS 12/31/24 12/31/24 Unknown History vilazodone 40 mg tablet 40 mg PO DAILY 12/31/24 12/31/24 Unknown History Allergies Allergy/AdvReac Type Severity Reaction Status Date / Time Gadolinium-Containing Allergy Severe Chest Pain Verified 12/31/24 14:48 Contrast Medi adhesive tape Allergy Mild Rash Verified 12/31/24 14:48 ioversol Allergy Unknown Other Verified 12/31/24 14:48 morphine Allergy Unknown Liver Verified 12/31/24 14:48 function tests abnormal acetaminophen AdvReac Severe kidney Verified 12/31/24 14:48 stop working tramadol AdvReac Severe Other Verified 12/31/24 14:48 trazodone AdvReac Intermediate Edema Verified 12/31/24 14:48 benzonatate AdvReac Unknown Headache Verified 12/31/24 14:48 codeine AdvReac Unknown Headache Verified 12/31/24 14:48 Review of Systems 2 Review of Systems: All systems reviewed & are unremarkable except as noted in HPI and below PMFSH Past Medical History Medical History Primary biliary cirrhosis BMI 28.0-28.9,adult Urinary catheter insertion/adjustment/removal Anxiety and depression Shingles Meniere disease Sjogren syndrome Rectocele Interstitial pulmonary fibrosis Vitamin D deficiency PAF (paroxysmal atrial fibrillation) CKD (chronic kidney disease) Hyperlipidemia Hypothyroidism Hypertension HOCM (hypertrophic obstructive cardiomyopathy) Vertigo Actinic keratosis History of basal cell carcinoma (BCC) Chin Surgical History Surgical History History of bladder surgery bladder suspension History of knee replacement - 1997, 1998, 1999, 2001 History of cholecystectomy 1996 H/O: hysterectomy 1974 History of tubal ligation 1972 Family History Family History Father Hypertension Cerebrovascular accident, Onset Age: 70 Patient's father is Mother Hypertension Family history of aortic aneurysm, Onset Age: 81 Sibling Hypertension Family history of diabetes mellitus in first degree relative Family history of coronary artery disease Family history of premature coronary heart disease Patient's brother is Family history of malignant neoplasm of brain Family history of type 2 diabetes mellitus Sibling Diabetes mellitus Heart disease Advanced hepatic cirrhosis Social History Social History Social History: Caffeine-daily Smoking status: Former smoker Second hand tobacco smoke exposure: Yes Alcohol intake: never Substance use: never Substance use type: does not use Other substance usage details: CBD gummies Do You Feel Safe in your Home?: Yes Lack of Transportation: No Lack of Food: Never True Current Housing: I Have Housing Concerned About Future Housing: No Difficulty Paying Gas/Electric Bills: No Difficulty Paying for Meds: No Currently Unemployed: No Education: Associate Degree Difficulty w/ Childcare or Family Care: No Living arrangements: with family Occupation/Education: retired 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 Gender identity (if verbalized by the patient): Female Spiritual care concerns: No Exam 2 Narrative: APPEARANCE: Well appearing, no pain, no distress, well-nourished. HEAD: normocephalic, atraumatic. EYES: PERRLA/EOMI, conjunctivae clear. NOSE: Normal no drainage EARS:TMS clear with good light reflex. THROAT: Pharynx clear, no exudate. NECK: Supple. No adenopathy, no masses. RESPIRATORY: Airway patent, respirations nonlabored. Clear to auscultation bilaterally, no rales, rhonchi, wheezing. CARDIOVASCULAR: Regular rate and rhythm without murmurs rubs or gallops. ABDOMINAL: Soft, nontender, nondistended, normal bowel sounds MUSCULOSKELETAL: Bilateral lower extremity edema NEURO: Alert. Cranial nerves II through XII intact. Good gait. Good coordination SKIN: Warm, dry. Normal Color Course Vital Signs Vital signs: Vital Signs Temperature 97.8 F 01/11/25 12:40 Pulse Rate 75 01/11/25 12:40 Respiratory Rate 20 01/11/25 12:40 Blood Pressure 154/80 H 01/11/25 12:40 Pulse Oximetry 95 01/11/25 12:40 Oxygen Delivery Room Air 01/11/25 12:40 Temperature 97.8 F 01/11/25 12:40 Pulse Rate 70 01/11/25 16:38 Respiratory Rate 20 01/11/25 16:38 Blood Pressure 135/75 01/11/25 16:38 Pulse Oximetry 97 01/11/25 16:38 Oxygen Delivery Room Air 01/11/25 12:40 Medical Decision Making MDM Narrative Medical decision making narrative: 84-year-old female presents emergency to the department for evaluation for increased shortness of breath. Patient has not been taking her Lasix since she was discharged. Patient was treated with IV Lasix in the emergency department has had significant urinary output. Patient was able to ambulate in the emergency department without lightheaded or dizziness. Patient is currently afebrile with no leukocytosis hemoglobin 11.6. Patient's INR is 1.1. Patient kidney function is similar to her baseline. Patient has no evidence of urinary tract infection. Chest x-ray does show some pulmonary edema. EKG shows rate controlled atrial fibrillation. Differential Diagnosis Differential Diagnosis: Pulmonary edema, pneumonia, thrush, pneumothorax Vital Signs Vital Signs: Vital Signs Temperature 97.8 F 01/11/25 12:40 Pulse Rate 75 01/11/25 12:40 Respiratory Rate 20 01/11/25 12:40 Blood Pressure 154/80 H 01/11/25 12:40 Pulse Oximetry 95 01/11/25 12:40 Oxygen Delivery Room Air 01/11/25 12:40 Temperature 97.8 F 01/11/25 12:40 Pulse Rate 70 01/11/25 16:38 Respiratory Rate 20 01/11/25 16:38 Blood Pressure 135/75 01/11/25 16:38 Pulse Oximetry 97 01/11/25 16:38 Oxygen Delivery Room Air 01/11/25 12:40 Lab Data Lab results reviewed: Yes I reviewed the patient's lab results. 01/11/25 13:15 01/11/25 13:15 Labs: Lab Results 01/11/25 01/11/25 Range/Units 13:15 13:39 WBC 8.7 (4.5-10.0) K/mm3 RBC 4.12 L (4.2-5.4) M/mm3 Hgb 11.6 L (12.0-15.0) g/dL Hct 37.6 (37.0-47.0) % MCV 91.3 (80-100) fl MCH 28.2 (26-34) pg MCHC 30.9 L (32-36) g/dl RDW 14.4 (11.5-14.5) % Plt Count 421 H (150-375) k/mm3 MPV 8.7 (7.4-10.4) fl Immature Gran % (Auto) 0.9 H (0-0.5) % Neut % (Auto) 77.3 H (45.5-73.1) % Lymph % (Auto) 6.7 L (18.3-44.2) % Stephenson % (Auto) 9.4 H (2.6-8.5) % Eos % (Auto) 4.9 H (0-4.4) % Baso % (Auto) 0.8 (0.2-1.2) % Lymph # (Auto) 0.58 L (0.9-3.2) K/mm3 Stephenson # (Auto) 0.8 H (0.1-0.6) K/mm3 Eos # (Auto) 0.4 H (0-0.3) K/mm3 Baso # (Auto) 0.1 (0.0-0.1) K/mm3 Abs Immat Gran (auto) 0.08 H (0.00-0.031) K/mm3 Absolute Neuts (auto) 6.7 (1.3-6.7) K/mm3 Absolute Nucleated RBC 0.000 (0.0-0.012) K/mm3 Nucleated RBC % 0.0 (0.0-0.2) % PT 13.8 (11.1-14.7) Seconds INR 1.1 APTT 25.4 (22.3-36.8) Seconds Sodium 137 (137-145) mmol/L Potassium 4.0 (3.4-5.0) mmol/L Chloride 108 H (98-107) mmol/L Carbon Dioxide 24 (22-30) mmol/L Anion Gap 5 (4-12) mmol/L BUN 17 (7-17) mg/dL Creatinine 0.93 (0.7-1.0) mg/dL Estim Creat Clear Calc 42 ml/min Estimated GFR 58 L (59 - ) Glucose 87 (65-110) mg/dL Calcium 8.7 (8.4-10.2) mg/dL Total Bilirubin 0.3 (0.2-1.3) mg/dL AST 36 (14-36) U/L ALT 23 (6-35) U/L Alkaline Phosphatase 223 H (38-126) U/L NT-Pro-B Natriuret Pep 3920 H (19.9-100) pg/mL Total Protein 5.9 L (6.3-8.2) g/dL Albumin 3.1 L (3.5-5.1) g/dL Urine Color Yellow (Yellow) Urine Appearance Clear (Clear) Urine pH 6.0 (5.0-9.0) Ur Specific [place] 1.005 (1.001-1.035) Urine Protein Negative (Negative) mg/dL Urine Glucose (UA) Negative (Negative) mg/dL Urine Ketones Negative (Negative) mg/dL Ur Blood (Man) Negative (Negative) Urine Nitrate Negative (Negative) Urine Bilirubin Negative (Negative) Urine Urobilinogen 0.2 (<2.0) mg/dL Add Ur Microanalysis Reviewed Leukocyte Esterase Rfl Trace H (Negative) REX/UL Urine RBC 0-2 (0-2) /hpf Urine WBC 0-5 (0-3) /hpf Ur Squamous Epith Cells None seen (Few) /hpf Urine Bacteria None seen /hpf Urine Casts 0-2 Imaging Data Radiologist's impression: Impressions Chest X-Ray 01/11/25 13:55 IMPRESSION: 1. Unchanged mild diffuse coarse interstitial pattern in the bilateral mid and lower lungs consistent with chronic interstitial lung disease although superimposed mild pulmonary edema cannot be excluded. 2. Borderline heart size. ECG Data EKG #1: EKG Interpretation: normal rate, atrial fibrillation, non-specific ST changes, widened QRS, NL axis and no acute changes Discharge Plan Discharge Clinical Impression: Pulmonary edema Patient Disposition: Home Condition: Stable Instructions: Antibiotic Form, Pulmonary Edema (ED) Additional Instructions: Resume taking your Lasix as directed. Have close follow-up with your primary care physician. If you have any worsening symptoms then please call or return to the emergency department. Patient Language: Armenian Prescriptions: No Action potassium chloride 20 mEq tablet extended release 40 meq PO DAILY levothyroxine 200 mcg tablet 200 mcg PO DAILY vilazodone 40 mg tablet 40 mg PO DAILY mirtazapine 30 mg tablet 30 mg PO QHS furosemide 20 mg Tablet 20 mg PO BID Qty: 60 0RF ursodiol 500 mg tablet 500 mg PO BID Qty: 180 2RF metoprolol succinate 50 mg tablet extended release 24 hr See Rx Instructions .ROUTE .COMPLEX Qty: 180 0RF Dose Instruction: TAKE 1 TABLET BY MOUTH TWICE A DAY Rx Instructions: TAKE 1 TABLET BY MOUTH TWICE A DAY losartan 25 mg tablet 25 mg PO DAILY Qty: 90 1RF Follow-up/Referrals: Kartik Hines DO [Primary Care Provider] -
[2025-01-11 13:32] LABS: INR 1.1; Partial Thromboplastin Time 25.4 Seconds (22.3-36.8); Prothrombin Time 13.8 Seconds (11.1-14.7)
[2025-01-11 13:42] LABS: Alanine Aminotransferase 23 U/L (6-35); Albumin Level 3.1 g/dL (3.5-5.1); Alkaline Phosphatase 223 U/L (38-126); Anion Gap 5 mmol/L (4-12); Aspartate Amino Transferase 36 U/L (14-36); Bilirubin,Total 0.3 mg/dL (0.2-1.3); Blood Urea Nitrogen 17 mg/dL (7-17); Calcium 8.7 mg/dL (8.4-10.2); Carbon Dioxide 24 mmol/L (22-30); Chloride 108 mmol/L (98-107); Estimated CRCL calculation 42 ml/min; Estimated Glomerular Filt Rate 58; Glucose 87 mg/dL (65-110); Potassium 4.0 mmol/L (3.4-5.0); Sodium 137 mmol/L (137-145); Total Protein 5.9 g/dL (6.3-8.2)
[2025-01-11 13:50] LABS: NT Pro B Type Natriuretic Pept 3920 pg/mL (19.9-100)
[2025-01-11] MEDS: FUROSEMIDE INJ 40 MG/4 ML VIAL IV PUSH (13:57)
[2025-01-11 14:10] LABS: Add Urine Microscopic? YES; Appearance Urine Clear (Clear); Glucose Urine UA Negative (Negative); Leukocyte Esterase Ur Trace LEU/UL (Negative); Need Manual Microscopic Reviewed; Nitrate Urine Negative (Negative); Non Pathogenic Casts 0-2; Specific Grav Ur 1.005 (1.001-1.035)
[2025-01-11 14:42] VITALS: BP 172/76; PULSE 80; RESP 20; O2SAT 98
[2025-01-11 16:38] VITALS: BP 135/75; PULSE 70; RESP 20; O2SAT 97
== END 2025-01-11 16:50 | disposition home or self-care (01) ==
PROVIDERS: Emergency Provider Emergency Medicine; PCP Internal Medicine
DX: J81.1 Chronic pulmonary edema (principal); F41.8 Other specified anxiety disorders; H81.09 Meniere's disease, unspecified ear; M35.00 Sjogren syndrome, unspecified; E55.9 Vitamin D deficiency, unspecified; N18.9 Chronic kidney disease, unspecified; I48.0 Paroxysmal atrial fibrillation; E78.5 Hyperlipidemia, unspecified; I12.9 Hypertensive chronic kidney disease with stage 1 through stage 4 chronic kidney disease, or unspecified chronic kidney disease; E03.9 Hypothyroidism, unspecified; Z87.891 Personal history of nicotine dependence
CPT/HCPCS: 36415; 71045; 80053; 81001; 83880; 85025; 85610; 85730; 93005; 96374; 99284; J1938

== ENCOUNTER 2025-03-06 12:53 | Outpatient (CLI) | payer MEDICARE, SELFPAY ==
--- OUTSIDE RECORDS SUMMARY | 2025-03-06 12:57 | XMS_ITS | Clinical Summary ---
Author Organization [facility] [employer] Address [facility] [place] [address] Care Team Providers Care Vending Machine Attendant Name Role Phone Hasmukh Gonzalez MD Primary Care Provider Unavail able Source Comments [facility]non-owned Affiliates and Associated Physician Practices is amultiple site organization consisting of ambulatory clinics and hospital sitesin [place], [place], [place] and [place]. This disclosure is being madepursuant to the Care Everywhere program and may not contain all information available regarding this patient. Last updated 18.[facility] Allergies Active Allergy Reactions Criticality Noted Date [...] on file Legal Sex Female 6:06 AM [employer] Gender Identity Not on file Sexual Orientation [...] yrs (1 - 1-dose 75+ series) 2017 DEPRESSION SCREENING 06/06/2024 COVID-19 VACCINE (1 - 2023-2 5 season) 2025 INFLUENZA VACCINE (#1) 2025 HEPATITIS B VACCINE [...] this topic Medical Devices Implanted Type Area Truck Washer Device Identifier Shelf Expiration Date Model / Serial / Lot Wire K .035 X 5.5in Implanted:Qty: 2 on 09/06/2017 by Venice Dueñas MD at [facility] Left: Finger [place] [employer] [id number] 00 / / Description:left index finge r Insurance MEDICARE [facility] Care Teams Vending Machine Attendant Relationship Specialty Start Date End Date Hasmukh Gonzalez MD PCP - General Internal Medicine 08/18/17
== END 2025-03-06 12:54 | disposition home or self-care (01) ==
LOC: ANHAUDASC 12:53
PROVIDERS: PCP Internal Medicine; Visit Provider Otolaryngology
DX: H90.3 Sensorineural hearing loss, bilateral (principal)
CPT/HCPCS: 92557; 92567

== ENCOUNTER 2025-03-26 13:48 | Observation (INO) | payer MEDICARE, SELFPAY ==
--- OUTSIDE RECORDS SUMMARY | 2010-02-17 19:00 | XMS_ITS | Continuity of Care Document ---
Author Organization [facility] [place] Address [address] [place] [address] Phone Care Team Providers Care Web Specialist Name Role Phone [facility] Unavailable Unavail able Lucita Laura Unavailable Unavailable Procedures Procedure Date Vision Svcs Frames Purchases Progressive Lens, Plastic Tint Photochromatic, Plastic Anti-reflective Coating Prism Lens/es Medical Tax Office/outpatient Visit, Est Refraction Eye Exam & Treatment Refraction Anti-reflective Coating Progressive Lens, Plastic No Charge Glasses Check Progressive Lens, Plastic Frames Deluxe Anti-reflective Coating Tint Photochromatic, Plastic Tax - Medical Prism Lens/es Eye Exam & Treatment Refraction Eye Exam & Treatment Refraction Advance Directives Directive Yes / No Effective Date File Name No Information Encounters Encounter Description Practice Location Reason(s) For Visit Diagnoses Date Provider Providers Copied on Encounter [facility], [address], [place], [place], [id number], [place] tel:[phone] [facility] No Information Feb- 5201 0 [facility] . [address], [address], [place], [place], [address], [place]. tel:[phone] Referring Provider: Pamela Valle, [address], [place], [address]. tel:[phone] wadsworth Provider: Lucita Laura, [address] [place] [address], [address]. tel:[phone] Office/outpat ient Visit, Est [facility], [address], [place], [place], [id number], [place] tel:[phone] [facility] No Information Sep- 4-201 0 Odilia Santiago. [address], [address], [place], [address], [place]. tel:[phone] [facility], [address], [place], [place], [id number], [place] tel:[phone] [facility] No Information Apr-2 4-200 9 Odilia Santiago. [address], [address], [place], [place], [facility], [place]. tel:[phone] [facility], [address], [place], [place], [id number], [place] tel:[phone] [facility] No Information Dec-2 9-200 8 [facility] . [address] [facility] [address], [address], [id number], [place]. tel:[phone] Consulting Provider: Mariah Bolden, [address] [place] [address], [address]. tel:[phone] [facility], [address], [place], [place], [address], [place] tel:[phone] [facility] No Information Aug-0 8-200 8 [facility] . [address], [address], [place], [place], [address], [place]. tel:[phone] Consulting Provider: Mariah Bolden, [address] [place] [address], [facility]. tel:[phone] [facility], [address], [place], [place], [id number], tel:[phone] [facility] No Information Jan-0 8-200 8 Odilia Evans [address], [place], [place], [facility], . tel:[phone] [facility], [address], [place], [place], [address], tel:[phone] [facility] No Information 0 2200 8 [facility] . [address], [address], [place], [place], [address], . tel:[phone] Referring Provider: Pamela Valle, [address], [place], [place], [facility]. tel:[phone] g Provider: Mariah Bolden, [address] [place], [place], [facility]. tel:[phone] [facility], [address] [place] [address] [address], [place], [place], [address], tel:[phone] [facility] No Information 0 1200 8 Odilia Evans [address] , [address], [place], [place], [facility], . tel:[phone] [facility], [address] [place] [address] [address], [place], [place], [address], tel:[phone] [facility] No Information 200 7 Odilia Evans [address] , [address], [place], [place], [facility], . tel:[phone] Family History Family Member Type Diagnosis Age At Onset No Information Payers Payer name Insurance type Covered democrat ID Authoriza tion(s) No Information Social History Type Description Quantity Date Captured Comments Sex Female Smoking Status No Information Chief Complaint And Reason For Visit No Information Reason For Referral Reason For Referral No Information History Of Present Illness Encounter Date Complaint History Of Prese nt Illness No Information Functional Status Date Functional Assessmen t No Information Instructions Date Instruction Additional Infor mation No Information Assessments Type Assessment Date No Information Patient Care Teams Name Effective Dates (start - stop) Status Members No Information
--- OUTSIDE RECORDS SUMMARY | 2023-11-19 16:30 | XMS_ITS ---
Author Organization [facility] [employer] ([address]) Address [address] [place] [address] Care Team Providers Care Equipment Service Lead Name Role Phone Kirby Rodarte Primary Care Provider UnavailSophie Cool Unavailable [phone] ZZ-Migration, Provider Unavailable Unavailab le Allergies Allergen (clinical drug ingredient) Drug/Non Drug Allergy documented on EMR Reaction Allergy Type Onset Date Status CONTRAST DYE (uncoded) other reaction Allergy Active codeine Codeine stomach upset Drug Allergy Act francesca REASON FOR VISIT [facility] To [facility] Conversion Encounter Medications Medication SIG (Take, Route, Frequency, Duration) Notes Start Date End Date Status VILAZODONE HYDROCHLORIDE 20 MG 1 TAB(S) ORALLY ONCE A DAY; Duration: 7 DAY(S) *Please review for potential replacement for e-prescription and drug interaction check* 07/13/2023 Active Ursodiol 500 MG 1 tab(s) orally twice a day; Duration: 30 days 07/13/2023 Active Levothyroxine Sodium 200 MCG 1 tab(s) orally once a day; Duration: 30 day(s) 07/13/2023 Active Levocetirizine Dihydrochloride 5 MG 1 tab(s) orally once a day (in the evening); Duration: 30 day(s) 07/13/2023 Active NASAL WASHES N/A DIRECTED INTRANASALLY NEEDED; Duration: 30 *Please review for potential replacement for e-prescription and drug interaction check* 07/13/2023 Active Metoprolol Succinate ER 50 MG 1 tab(s) orally once a day Active Furosemide 40 MG 1 tab(s) orally once a day Active traZODone HCl 100 MG as directed orally 07/13/2023 Active Klor-Con 20 MEQ 1 ea orally 2 times a day; Duration: 30 day(s) 07/13/2023 Active Encounters Encounter Location Date [facility] [place] [address] 11/19/2023 Provider Lindsay Allergic rhinitis due to pollen J30.1 Assessments Encounter Date Diagnosis (ICD Code) Assessment Notes Treatment Notes Treatment Clinical Notes Section Notes 11/19/2023 Allergic rhinitis due to pollen (ICD-10 - J30.1) Plan Of Treatment Medication Medication Name Sig Start Date Stop Date Notes Levocetirizine Dihydrochloride 5 MG 1 tab(s) orally once a day (in the evening); Duration: 30 day(s) 07/13/2023 NASAL WASHES N/A DIRECTED INTRANASALLY NEEDED; Duration: 30 07/13/2023 *Please review for potential replacement for e-prescription and drug interaction check* Progress Notes * Bart ACKERMANOB:1940 (84 yo F)Acc No.[id number]:11/19/2023 Patient: Jenniffer WARD Provider: David Jeffers :1940 A ge:83 Y S ex:Female Date:11/19/2023 Address:[address] [place] [address], [id number] Pcp:Kirby Rodarte Subjective: * Chief Complaints: * [facility] Conversion Encounter. * Medical History: * Medications: T aking Metoprolol Succinate ER 50 MG Tablet Extended Release 24 Hour 1 tab(s) orally once a day , Taking Furosemide 40 MG Tablet 1 tab(s) orally once a day , Taking Levothyroxine Sodium 200 MCG Tablet 1 tab(s) orally once a day , Taking VILAZODONE HYDROCHLORIDE 20 MG TABLET 1 TAB(S) ORALLY ONCE A DAY , Notes to Pharmacist: *Please review for potential replacement for e-prescription and drug interaction check*, Taking Ursodiol 500 MG Tablet 1 tab(s) orally twice a day , Taking traZODone HCl 100 MG Tablet as directed orally , Taking Klor-Con 20 MEQ Packet 1 ea orally 2 times a day * Allergies: C odeine: stomach upset, CONTRAST DYE: other reaction. Objective: * Vitals: Assessment: * Assessment: 1. A llergic rhinitis due to pollen - J30.1 (Primary) Plan: * Treatment: * Billing Information: * Visit Code: * Procedure Codes: * Electronic signature of Juan Luis SHAHID-Migration on 03/26/2025 at 07:34 PM CDT Sign off status: Pending * Provider: David coyne Migration Date: 0 11/19/2023 Generated for Giovanni corbin/Latricia/Praful on: 1 07:34 PM CDT
--- OUTSIDE RECORDS SUMMARY | 2023-11-19 16:30 | XMS_ITS ---
Author Organization [facility] [employer] [place] ([address]) Address [address] [place] [address] Care Team Providers Care Immunopathologist Name Role Phone Kirby Rodarte Primary Care Provider UnavailSophie Cool Unavailable [phone] ZZ-M[employer], Provider Unavailable Unavailab le Allergies Allergen (clinical drug ingredient) Drug/Non Drug Allergy documented on EMR Reaction Allergy Type Onset Date Status CONTRAST DYE (uncoded) other reaction Allergy Active codeine Codeine stomach upset Drug Allergy Act francesca REASON FOR VISIT [facility] To [facility] Conversion Encounter Medications Medication SIG (Take, Route, [...] Active Encounters Encounter Location Date [facility] [place] [address] 11/19/2023 Provider Lindsay Allergic rhinitis due to [...] Notes * Bart ACKERMANOB:1940 (84 yo F)Acc No.[id number]:11/19/2023 Patient: Jenniffer WARD Provider: David Jeffers :1940 A ge:83 Y S ex:Female Date:11/19/2023 Address:[address] [place] [address], [id number] Pcp:Kirby Rodarte Subjective: * Chief Complaints: * 1 . [facility] En[facility]. * Medical History: * Medications: [...] Electronic signature of Juan Luis SHAHID-Migration on 03/29/2025 at 10:28 AM CDT Sign off status: Pending * Provider: David coyne Migration Date: 0 11/19/2023 Generated for Giovanni corbin/Latricia/Praful on: 1 10:28 AM CDT
--- OUTSIDE RECORDS SUMMARY | 2025-02-28 09:00 | XMS_ITS ---
Author Organization [facility] Address [address] [place] [address] [address] Care Team Providers Care Sock Examiner Name Role Phone Kartik Hines DO Primary Care Provider Agnieszka Mitchell Unavailable [phone] REASON FOR VISIT Has an upset stomach and wants to stay in her bedroom Social History Sex Assigned At : Social History Observation Description Sex Assigned At Female Encounters Encounter Location Date Provider Diagnosis [facility] [place] [id number] [facility] [address] [address] 02/28/2025 Agnieszka Sorenson Plan Of Treatment Next Appt Details Provider Name:Agnieszka Sorenson , 09/09/2025 01:00:00 PM, [facility], [address], [address], Progress Notes * BRANT ACKERMANOB:1940 (84 yo F)Acc No.[id number]:02/28/2025 Patient: FINA WARD Provider: NATALI COSTA :1940 A ge:84 Y S ex:Female Date:02/28/2025 [facility] [facility] Pcp:Kartik Hines DO Subjective: * Chief Complaints: * H as an upset stomach and wants to stay in her bedroom Billing Information: * Procedure Codes: * Electronic signature of NATALI Prabhakar on 03/26/2025 at 07:35 PM CDT Sign off status: Pending * Provider: DENIS COSTAP Date: 0 02/28/2025 Generated for Giovanni Eugene/Praful on: 1 07:35 PM CDT
--- OUTSIDE RECORDS SUMMARY | 2025-02-28 09:00 | XMS_ITS ---
Author Organization [facility] [employer] [facility] Address [address] [place] [address] [address] Care Team Providers Care Mail Machine Operator Name Role Phone Kartik Hines DO Primary Care Provider Agnieszka Mitchell Unavailable [phone] REASON FOR VISIT Has an upset stomach and wants to stay in her bedroom Social History Sex Assigned At : Social History Observation Description Sex Assigned At Female Encounters Encounter Location Date Provider Diagnosis [facility] [employer] [place] [address] [facility] [address] [address] 02/28/2025 Agnieszka Sorenson Plan Of Treatment Next Appt Details Provider Name:Agnieszka Sorenson , 09/09/2025 01:00:00 PM, [facility] [facility] [address], [address], [address], Progress Notes * BRANT ACKERMANOB:1940 (84 yo F)Acc No.[id number]:02/28/2025 Patient: FINA WARD Provider: NATALI COSTA :1940 A ge:84 Y S ex:Female Date:02/28/2025 Address[address] [facility] Pcp:Kartik Hines DO Subjective: * Chief Complaints: * H as an upset stomach and wants to stay in her bedroom Billing Information: * Procedure Codes: * Electronic signature of NATALI Prabhakar on 03/29/2025 at 10:28 AM CDT Sign off status: Pending * Provider: ANDREA COSATP Date: 0 02/28/2025 Generated for Giovanni corbin/Latricia/Praful on: 1 10:28 AM CDT
--- OUTSIDE RECORDS SUMMARY | 2025-03-04 08:45 | XMS_ITS ---
Author Organization [facility] Address [facility] [address] [facility] [address] [place] [address] Care Team Providers Care Core Driller Helper Name Role Phone Kartik Hines DO Primary Care Provider Agnieszka Mitchell Unavailable [phone] REASON FOR VISIT not feeling well Social History Sex Assigned At : Social History Observation Description Sex Assigned At Female Encounters Encounter Location Date Provider Diagnosis [facility] [employer] [place] [address] [facility] [address] [place] [address] 03/04/2025 Agnieszka Sorenson Plan Of Treatment Next Appt Details Provider Name:Agnieszka Sorenson , 09/09/2025 01:00:00 PM, [address], [facility] [address], [place], [address], Progress Notes * TYRON WAGNERCARLOEDOB:1940 (84 yo F)Acc No.[id number]:03/04/2025 Patient: FINA WARD Provider: NATALI COSTA :1940 A ge:84 Y S ex:Female Date:03/04/2025 [facility] [facility] [facility] Pcp:Kartik Hines DO Subjective: * Chief Complaints: * N ot feeling well Billing Information: * Procedure Codes: * Electronic signature of NATALI Prabhakar on 03/26/2025 at 07:35 PM CDT Sign off status: Pending * Provider: NATALI COSTA Date: 0 03/04/2025 Generated for Giovanni corbin/Latricia/Praful on: 1 07:35 PM CDT
--- OUTSIDE RECORDS SUMMARY | 2025-03-04 08:45 | XMS_ITS ---
Author Organization [facility] Was it Filmed [facility] Address [facility] [address] [facility] [address] [place] [address] Care Team Providers Care Conference Planning Manager Name Role Phone Kartik Hines DO Primary Care Provider Agnieszka Mitcehll Unavailable [phone] REASON FOR VISIT not feeling well Social History Sex Assigned At : Social History Observation Description Sex Assigned At Female Encounters Encounter Location Date Provider Diagnosis [facility] [email or web address] [place] [address] [facility] [address] [place] [address] 03/04/2025 Agnieszka Sorenson Plan Of Treatment Next Appt Details Provider Name:Agnieszka Sorenson , 09/09/2025 01:00:00 PM, [address], [facility] [address], [place], [address], Progress Notes * TYRON WAGNERCARLOEDOB:1940 (84 yo F)Acc No.[id number]:03/04/2025 Patient: FINA WARD Provider: NATALI COSTA :1940 A ge:84 Y S ex:Female Date:03/04/2025 [facility] [facility] Pcp:Kartik Hines DO Subjective: * Chief Complaints: * N ot feeling well Billing Information: * Procedure Codes: * Electronic signature of NATALI Prabhakar on 03/29/2025 at 10:28 AM CDT Sign off status: Pending * Provider: NATALI COSTA Date: 0 03/04/2025 Generated for Giovanni corbin/Latricia/Praful on: 1 10:28 AM CDT
[2025-03-26] VITALS (9 sets, daily range): BP systolic 149–170; BP diastolic 68–96; PULSE 59–66; RESP 16–20; TEMP 36.6–37; O2SAT 86–98; BMI 28.7
--- NOTE | ~2025-03-26 | XR_ITS ---
EXAMINATION: XR chest 2V, 03/26/2025 14:50 CDT HISTORY: sob, hx chf with acute swelling COMPARISON: No comparisons available. Technique: 2 views obtained. Findings: COPD changes. No pneumothorax. Moderate cardiomegaly. Mediastinal and hilar contours are within normal limits. Bony thorax no acute abnormality. Impression: Mild CHF Reviewed, dictated and finalized at location P. Impression: Mild CHF
--- NOTE | 2025-03-26 13:55 | ECG_ITS ---
Test Date: 2025-03-26 14:02:16 Measurements Intervals [place] Rate: 64 P: 0 NH: 0 QRS: -43 QRSD: 130 T: 75 QT: 416 QTc: 431 Interpretive Statements ATRIAL FIBRILLATION LEFT AXIS DEVIATION LEFT VENTRICULAR HYPERTROPHY WITH ST-T CHANGE POSSIBLE ANTERIOR MYOCARDIAL INFARCTION , OF INDETERMINATE AGE CONSIDER INFERIOR INFARCT, AGE INDETERMINATE BASELINE ARTIFACT- I, II, III, AVR, AVL, AVF ABNORMAL ECG Compared to ECG 01/11/2025 13:10:03 NO SIGNIFICANT CHANGE Electronically Signed On 03-26-2025 14:53:31 CDT by Donte Esqueda D.O.
[2025-03-26 14:19] LABS: Hematocrit 43.8 % (37.0-47.0); Hemoglobin 13.6 g/dL (12.0-15.0); Immature Granulocyte Percent A 0.5 % (0-0.5); Lymphocytes Absolute Auto 0.52 K/mm3 (0.9-3.2); Mean Corpuscular HGB Conc 31.1 g/dl (32-36); Mean Corpuscular Hemoglobin 29.8 pg (26-34); Mean Corpuscular Volume 95.8 fl (80-100); Nucleated Red Blood Cells Absolute Auto 0.000 K/mm3 (0.0-0.012); Nucleated Red Blood Cells Perc 0.0 % (0.0-0.2); Platelet Count Result 271 k/mm3 (150-375); Red Blood Count 4.57 M/mm3 (4.2-5.4); White Blood Count 8.0 K/mm3 (4.5-10.0)
[2025-03-26 14:33] LABS: INR 1.0; Prothrombin Time 13.2 Seconds (11.1-14.7)
[2025-03-26 14:34] LABS: Partial Thromboplastin Time 26.1 Seconds (22.3-36.8)
[2025-03-26 14:36] LABS: Alanine Aminotransferase 16 U/L (6-35); Albumin Level 3.7 g/dL (3.5-5.1); Alkaline Phosphatase 208 U/L (38-126); Anion Gap 7 mmol/L (4-12); Aspartate Amino Transferase 34 U/L (14-36); Bilirubin,Total 0.6 mg/dL (0.2-1.3); Blood Urea Nitrogen 20 mg/dL (7-17); Calcium 8.7 mg/dL (8.4-10.2); Carbon Dioxide 28 mmol/L (22-30); Chloride 103 mmol/L (98-107); Estimated CRCL calculation 37 ml/min; Estimated Glomerular Filt Rate 49; Glucose 102 mg/dL (65-110); Potassium 3.8 mmol/L (3.4-5.0); Sodium 138 mmol/L (137-145); Total Protein 6.8 g/dL (6.3-8.2)
[2025-03-26 14:47] LABS: NT Pro B Type Natriuretic Pept 3810 pg/mL (19.9-100); Troponin I 0.015 ng/mL (0.000-0.034)
--- NOTE | 2025-03-26 16:26 | ED.GENADULT ---
HPI - General Adult General Chief complaint: Shortness of Breath/Dyspnea Stated complaint: CHF, SOB, leg swelling Time Seen by Provider: 03/26/25 14:53 History of Present Illness HPI narrative: This is a 84-year-old female with a history of CHF and sjogren's syndrome presenting for difficulty breathing. Patient noticed that she has had increased lower extremity edema as well as dyspnea on exertion. She feels like she is fluid overloaded. Because of her Sjogren's she says that she always has to have water on her and she is taking sips throughout the day. She does not check her weight on a daily basis. She takes 20 mg of Lasix twice daily. She denies fevers, productive cough, chest pain, abdominal pain, urinary symptoms. Related Data Home Medications ?Medication ?Instructions ?Recorded ?Confirmed ?Last Taken ?Type potassium chloride 20 mEq 40 meq PO DAILY 10/24/24 03/14/25 Unknown History tablet,extended release mirtazapine 30 mg tablet 30 mg PO QHS 12/31/24 03/14/25 Unknown History vilazodone 40 mg tablet 40 mg PO DAILY 12/31/24 03/14/25 Unknown History Allergies Allergy/AdvReac Type Severity Reaction Status Date / Time Gadolinium-Containing Allergy Severe Chest Pain Verified 03/14/25 15:15 Contrast Medi adhesive tape Allergy Mild Rash Verified 03/14/25 15:15 ioversol Allergy Unknown Other Verified 03/14/25 15:15 morphine Allergy Unknown Liver Verified 03/14/25 15:15 function tests abnormal acetaminophen AdvReac Severe kidney Verified 03/14/25 15:15 stop working tramadol AdvReac Severe Other Verified 03/14/25 15:15 trazodone AdvReac Intermediate Edema Verified 03/14/25 15:15 benzonatate AdvReac Unknown Headache Verified 03/14/25 15:15 codeine AdvReac Unknown Headache Verified 03/14/25 15:15 [facility] Past Medical History Medical History Atrial fibrillation with normal ventricular rate Primary biliary cirrhosis BMI 28.0-28.9,adult Urinary catheter insertion/adjustment/removal Anxiety and depression Shingles Meniere disease Sjogren syndrome Rectocele Interstitial pulmonary fibrosis Vitamin D deficiency PAF (paroxysmal atrial fibrillation) CKD (chronic kidney disease) Hyperlipidemia Hypothyroidism Hypertension HOCM (hypertrophic obstructive cardiomyopathy) Vertigo Actinic keratosis History of basal cell carcinoma (BCC) Chin Surgical History Surgical History History of bladder surgery bladder suspension History of knee replacement - 1997, 1998, 1999, 2001 History of cholecystectomy 1996 H/O: hysterectomy 1974 History of tubal ligation 1973 Family History Family History Father Hypertension Cerebrovascular accident, Onset Age: 70 Mother Hypertension Family history of aortic aneurysm, Onset Age: 81 Sibling Hypertension Family history of diabetes mellitus in first degree relative Family history of coronary artery disease Family history of premature coronary heart disease Patient's brother is Family history of malignant neoplasm of brain Family history of type 2 diabetes mellitus Sibling Diabetes mellitus Heart disease Advanced hepatic cirrhosis Social History Social History Social History: Caffeine-daily Smoking status: Former smoker Second hand tobacco smoke exposure: Yes Alcohol intake: never Substance use: never Substance use type: does not use Other substance usage details: CBD gummies Do You Feel Safe in your Home?: Yes Lack of Transportation: No Lack of Food: Never True Current Housing: I Have Housing Concerned About Future Housing: No Difficulty Paying Gas/Electric Bills: No Difficulty Paying for Meds: No Currently Unemployed: No Education: High School Diploma/GED Difficulty w/ Childcare or Family Care: No Living arrangements: with family Occupation/Education: retired Additional occupation/education comments: [employer]. Gender identity (if verbalized by the patient): Female Spiritual care concerns: No Exam Narrative: APPEARANCE: No apparent distress. Head: atraumatic. EYES: EOMI, NOSE: Atraumatic NECK: Trachea midline RESPIRATORY: No increased rate of breathing, bibasilar rales, patient desaturated to 86% while attempting to walk around the emergency department and became severely winded. CARDIOVASCULAR: RRR, +2 edema lower extremities ABDOMINAL: Non-distended MUSCULOSKELETAl: No obvious deformities NEURO: Alert. Moving 4/4 extremities SKIN:: Warm, dry. Normal color PSYCHIATRIC: Normal affect Course Vital Signs Vital signs: Vital Signs Temperature 97.8 F 03/26/25 13:54 Pulse Rate 59 L 03/26/25 13:54 Respiratory Rate 20 03/26/25 13:54 Blood Pressure 158/70 H 03/26/25 13:54 Pulse Oximetry 97 03/26/25 13:54 Oxygen Delivery Room Air 03/26/25 13:54 Temperature 97.8 F 03/26/25 13:54 Pulse Rate 64 03/26/25 14:41 Respiratory Rate 17 03/26/25 14:41 Blood Pressure 158/73 H 03/26/25 14:41 Pulse Oximetry 86 L 03/26/25 16:27 Oxygen Delivery Room Air 03/26/25 15:04 Medical Decision Making MDM Narrative Medical decision making narrative: -Course: 84-year-old female with history of CHF and Sjogren's he drinks water throughout the day presenting lower extremity edema and dyspnea on exertion. Patient has edema of the lower extremities. She has bibasilar crackles. At rest the patient is resting comfortably and speaking full sentences. However on ambulation the patient desaturates into the 80s and becomes severely winded. Chest x-ray showed mild pulmonary edema. BNP elevated at 3800. Initial troponin 0.015. EKG showed rate controlled AFib. Patient is a 40 mg of IV Lasix. She will be admitted hospital for CHF exacerbation. Viral swabs are pending. will be followed by admitting service. -DDX includes but is not limited to: She says exacerbation, pneumonia, COPD, viral syndrome Vital Signs Vital Signs: Vital Signs Temperature 97.8 F 03/26/25 13:54 Pulse Rate 59 L 03/26/25 13:54 Respiratory Rate 20 03/26/25 13:54 Blood Pressure 158/70 H 03/26/25 13:54 Pulse Oximetry 97 03/26/25 13:54 Oxygen Delivery Room Air 03/26/25 13:54 Temperature 97.8 F 03/26/25 13:54 Pulse Rate 64 03/26/25 14:41 Respiratory Rate 17 03/26/25 14:41 Blood Pressure 158/73 H 03/26/25 14:41 Pulse Oximetry 86 L 03/26/25 16:27 Oxygen Delivery Room Air 03/26/25 15:04 Lab Data 03/26/25 14:11 03/26/25 14:11 Labs: Lab Results 03/26/25 Range/Units 14:11 WBC 8.0 (4.5-10.0) K/mm3 RBC 4.57 (4.2-5.4) M/mm3 Hgb 13.6 (12.0-15.0) g/dL Hct 43.8 (37.0-47.0) % MCV 95.8 (80-100) fl MCH 29.8 (26-34) pg MCHC 31.1 L (32-36) g/dl RDW 16.3 H (11.5-14.5) % Plt Count 271 (150-375) k/mm3 MPV 9.4 (7.4-10.4) fl Immature Gran % (Auto) 0.5 (0-0.5) % Neut % (Auto) 82.1 H (45.5-73.1) % Lymph % (Auto) 6.5 L (18.3-44.2) % [place] % (Auto) 7.5 (2.6-8.5) % Eos % (Auto) 2.6 (0-4.4) % Baso % (Auto) 0.8 (0.2-1.2) % Lymph # (Auto) 0.52 L (0.9-3.2) K/mm3 [place] # (Auto) 0.6 (0.1-0.6) K/mm3 Eos # (Auto) 0.2 (0-0.3) K/mm3 Baso # (Auto) 0.1 (0.0-0.1) K/mm3 Abs Immat Gran (auto) 0.04 H (0.00-0.031) K/mm3 Absolute Neuts (auto) 6.5 (1.3-6.7) K/mm3 Absolute Nucleated RBC 0.000 (0.0-0.012) K/mm3 Nucleated RBC % 0.0 (0.0-0.2) % PT 13.2 (11.1-14.7) Seconds INR 1.0 APTT 26.1 (22.3-36.8) Seconds Sodium 138 (137-145) mmol/L Potassium 3.8 (3.4-5.0) mmol/L Chloride 103 (98-107) mmol/L Carbon Dioxide 28 (22-30) mmol/L Anion Gap 7 (4-12) mmol/L BUN 20 H (7-17) mg/dL Creatinine 1.08 H (0.7-1.0) mg/dL Estim Creat Clear Calc 37 ml/min Estimated GFR 49 L (59 - ) Glucose 102 (65-110) mg/dL Calcium 8.7 (8.4-10.2) mg/dL Total Bilirubin 0.6 (0.2-1.3) mg/dL AST 34 (14-36) U/L ALT 16 (6-35) U/L Alkaline Phosphatase 208 H (38-126) U/L Troponin I 0.015 (0.000-0.034) ng/mL NT-Pro-B Natriuret Pep 3810 H (19.9-100) pg/mL Total Protein 6.8 (6.3-8.2) g/dL Albumin 3.7 (3.5-5.1) g/dL Discharge Plan Discharge Clinical Impression: CHF (congestive heart failure), Hypoxic respiratory failure Patient Disposition: Still a Patient Condition: Stable Patient Language: German Prescriptions: No Action potassium chloride 20 mEq tablet extended release 40 meq PO DAILY furosemide 20 mg tablet 20 mg PO BID Qty: 60 5RF metoprolol succinate 50 mg tablet extended release 24 hr See Rx Instructions .ROUTE .COMPLEX Qty: 180 2RF Dose Instruction: TAKE 1 TABLET BY MOUTH TWICE A DAY Rx Instructions: TAKE 1 TABLET BY MOUTH TWICE A DAY ursodiol 500 mg tablet 500 mg PO BID Qty: 180 2RF vilazodone 40 mg tablet 40 mg PO DAILY mirtazapine 30 mg tablet 30 mg PO QHS losartan 25 mg tablet 25 mg PO DAILY Qty: 90 1RF levothyroxine 200 mcg tablet See Rx Instructions .ROUTE .COMPLEX Qty: 90 3RF Dose Instruction: TAKE 1 TABLET BY MOUTH DAILY Rx Instructions: TAKE 1 TABLET BY MOUTH DAILY amoxicillin-pot clavulanate 875-125 mg tablet 1 tablet PO BID Qty: 20 0RF Follow-up/Referrals: Adnrei Regan APRN [Primary Care Provider, Internal Medicine]
--- NOTE | 2025-03-26 16:27 | PC.NURSE ---
ambulatory O2 sat was 86% on RA EDP made aware
[2025-03-26] MEDS: FUROSEMIDE INJ 40 MG/4 ML VIAL IV PUSH (16:38)
[2025-03-26 17:35] LABS: Influenza A QL RT-PCR Negative (Negative); Influenza B QL RT-PCR Negative (Negative); RSV RNA, RT-PCR Negative (Negative); SARS-CoV-2 RNA PCR Negative (Negative)
--- NOTE | 2025-03-26 17:56 | PM.IMHP ---
H&P: HPI History of Present Illness Date/Time: 03/26/25 17:56 Chief Complaint: Shortness of Breath Narrative: 84 y/o F with PMH of Afib, CHF, CKD, Sjogren's, Meniere's, hypertension, hyperlipidemia, primary biliary cirrhosis, and hypothyroidism presents here with shortness of breath. The patient presents here from home via EMS for further evaluation of shortness of breath. She reports onset of dyspnea and bilateral lower extremity swelling over the past several days. She reports she feels fluid overloaded. She has a history of CHF and is on 20 mg of Lasix b.i.d.. She reports compliance with her diuretic. However, she does also have a history of Sjogren's for which she has water on her at all times and takes multiple sips throughout the day and does not always follow a low sodium diet. She denies associated productive cough, fever, chills, body aches, chest pain, abdominal pain, or urinary symptoms. She is unsure if she has had any weight gain as she does not check her weight on a daily basis. Notes she was recently diagnosed with a UTI, has 3 doses left of her abx course. Initial VS at presentation: 97.8? F, HR 59, R 20, 158/70, and 97% on RA. ED workup showed: No leukocytosis, no anemia, normal coags, creatinine 1.08 and GFR 49, BNP 3810, and viral PCR negative. CXR showed mild CHF. EKG showed atrial fibrillation, rate 64, and no significant changes compared to prior. Review of Systems Review of Systems: All systems reviewed & are unremarkable except as noted in HPI and below [facility] Past Medical History Medical History Atrial fibrillation with normal ventricular rate Primary biliary cirrhosis BMI 28.0-28.9,adult Urinary catheter insertion/adjustment/removal Anxiety and depression Shingles Meniere disease Sjogren syndrome Rectocele Interstitial pulmonary fibrosis Vitamin D deficiency PAF (paroxysmal atrial fibrillation) CKD (chronic kidney disease) Hyperlipidemia Hypothyroidism Hypertension HOCM (hypertrophic obstructive cardiomyopathy) Vertigo Actinic keratosis History of basal cell carcinoma (BCC) Chin Surgical History Surgical History History of bladder surgery bladder suspension History of knee replacement 4- 1997, 1998, 1999, 2001 History of cholecystectomy 1996 H/O: hysterectomy 1974 History of tubal ligation 1973 Family History Family History Father Hypertension Cerebrovascular accident, Onset Age: 70 Mother Hypertension Family history of aortic aneurysm, Onset Age: 81 Sibling Hypertension Family history of diabetes mellitus in first degree relative Family history of coronary artery disease Family history of premature coronary heart disease Patient's brother is Family history of malignant neoplasm of brain Family history of type 2 diabetes mellitus Sibling Diabetes mellitus Heart disease Advanced hepatic cirrhosis Social History Social History Social History: Caffeine-daily Smoking status: Never smoker Second hand tobacco smoke exposure: Yes Alcohol intake: never Substance use: never Substance use type: does not use Other substance usage details: CBD gummies Do You Feel Safe in your Home?: Yes Lack of Transportation: No Lack of Food: Never True Current Housing: I Have Housing Concerned About Future Housing: No Difficulty Paying Gas/Electric Bills: No Difficulty Paying for Meds: No Currently Unemployed: No Education: High School Diploma/GED Difficulty w/ Childcare or Family Care: No Living arrangements: with family Occupation/Education: retired Additional occupation/education comments: [employer]. Gender identity (if verbalized by the patient): Female Spiritual care concerns: No Meds Home Medications and Allergies Home Medications ?Medication ?Instructions ?Recorded ?Confirmed ?Type potassium chloride 20 mEq 40 meq PO DAILY 10/24/24 03/26/25 History tablet,extended release losartan 25 mg tablet 25 mg PO DAILY #90 tabs 12/04/24 03/26/25 Rx mirtazapine 30 mg tablet 30 mg PO QHS 12/31/24 03/26/25 History vilazodone 40 mg tablet 40 mg PO DAILY 12/31/24 03/26/25 History levothyroxine 200 mcg tablet See Rx Instructions .Route 01/21/25 03/26/25 Rx .COMPLEX #90 tabs furosemide 20 mg tablet 20 mg PO BID #60 tabs 02/05/25 03/26/25 Rx metoprolol succinate 50 mg See Rx Instructions .Route 02/05/25 03/26/25 Rx tablet,extended release 24 hr .COMPLEX #180 tabs ursodiol 500 mg tablet 500 mg PO BID #180 tabs 02/05/25 03/26/25 Rx amoxicillin 875 mg-potassium 1 tablet PO BID #20 tabs 03/18/25 03/26/25 Rx clavulanate 125 mg tablet Allergies Allergy/AdvReac Type Severity Reaction Status Date / Time Gadolinium-Containing Allergy Severe Chest Pain Verified 03/26/25 18:42 Contrast Medi adhesive tape Allergy Mild Rash Verified 03/26/25 18:42 ioversol Allergy Unknown Other Verified 03/26/25 18:42 morphine Allergy Unknown Liver Verified 03/26/25 18:42 function tests abnormal acetaminophen AdvReac Severe kidney Verified 03/26/25 18:42 stop working tramadol AdvReac Severe Other Verified 03/26/25 18:42 trazodone AdvReac Intermediate Edema Verified 03/26/25 18:42 benzonatate AdvReac Unknown Headache Verified 03/26/25 18:42 codeine AdvReac Unknown Headache Verified 03/26/25 18:42 Vital Signs Vital Signs - 24 hr 03/26/25 13:54 03/26/25 14:41 03/26/25 15:04 Temperature 97.8 F Pulse Rate 59 L 64 Respiratory Rate 20 17 Blood Pressure 158/70 H 158/73 H Pulse Oximetry 97 94 98 Oxygen Delivery Room Air Room Air 03/26/25 16:02 03/26/25 16:27 03/26/25 16:36 Temperature Pulse Rate 59 L 64 Respiratory Rate 20 20 Blood Pressure 158/68 H 153/80 H Pulse Oximetry 96 86 L 96 Oxygen Delivery Exam Const: General: comfortable and no acute distress Other: , female, elderly, nontoxic appearance HENMT: Face/Nose/Sinus: Normal nares present Mouth: Yes dry mucous membranes Eyes: General: appearance normal, both eyes and all related structures Sclera: sclerae normal Pupils: Equal, round and reactive pupils present EOM: EOMs intact bilaterally Resp: Effort & Inspection: normal respiratory effort Auscultation: clear to auscultation bilaterally Cardio: Rate: regular rate Other: Faint bibasilar crackles, no wheezing. GI: Other: Abdomen soft, nondistended, nontender. Normoactive bowel sounds in all quadrants. Skin: General skin exam: normal color and no rashes or lesions noted Wounds: no wounds Neuro: Speech: normal speech Motor exam (neuro): 5/5 motor strength present throughout Sensory Exam: normal sensation Other: A&O x4 Extrem: Other: 3+ pitting edema to BLE, symmetric and extends to her upper shins, no edema noted to thighs. Psych: Mental Status: mental status grossly normal Affect: normal affect Other: Good insight and judgment, very pleasant H&P: Results Labs Labs: Short CBC 03/26/25 Range/Units 14:11 WBC 8.0 (4.5-10.0) K/mm3 Hgb 13.6 (12.0-15.0) g/dL Hct 43.8 (37.0-47.0) % Plt Count 271 (150-375) k/mm3 BMP 03/26/25 14:11 Sodium 138 Potassium 3.8 Chloride 103 Carbon Dioxide 28 BUN 20 H Creatinine 1.08 H Glucose 102 Calcium 8.7 Cardiac Enzymes 03/26/25 Range/Units 14:11 Troponin I 0.015 (0.000-0.034) ng/mL Liver Function 03/26/25 Range/Units 14:11 Total Bilirubin 0.6 (0.2-1.3) mg/dL AST 34 (14-36) U/L ALT 16 (6-35) U/L Alkaline Phosphatase 208 H (38-126) U/L Albumin 3.7 (3.5-5.1) g/dL Assessment and Plan Assessment and plan (1) Acute on chronic diastolic heart failure: Code(s): I50.33 - Acute on chronic diastolic (congestive) heart failure Status: Acute Assessment and Plan: Here with symptoms (i.e. shortness of breath and lower extremity edema) consistent with CHF exacerbation. CXR also showing mild CHF. Reports compliance with home diuretic, however does drink water throughout the day due to her history of Sjogren's which may be contributing to her current exacerbation. Initial plan to discharge home, however the patient became hypoxic at 86% on room air with ambulation. Will plan to start IV diurese inpatient and reassess ambulatory O2 prior to discharge. - BNP 3810 - most recent echo (12/2024): Moderate LA enlargement, LVH with preserved systolic function, trivial MR, mildly sclerotic AV, mild RV dysfunction, moderate TR. - hold home p.o. Lasix 20 mg daily, will continue as Lasix 40 mg IV b.i.d. - monitor I&Os and daily weights - trend renal function (2) CKD (chronic kidney disease): Qualifiers: Chronic kidney disease stage: unspecified stage Qualified Code(s): N18.9 - Chronic kidney disease, unspecified Code(s): N18.9 - Chronic kidney disease, unspecified Status: Chronic Assessment and Plan: - creatinine 1.08, BUN 20, GFR 49 upon admission on 03/26 - baseline creatinine: 0.9-1.2 - trend renal function - trend electrolytes, correct as needed (3) Hypertension: Qualifiers: Hypertension type: primary hypertension Qualified Code(s): I10 - Essential (primary) hypertension Code(s): I10 - Essential (primary) hypertension Status: Chronic Assessment and Plan: - chronic, currently 153/80, stable. - continue home medications: Losartan, Metoprolol - monitor Plan Diet: Heart healthy GI Prophylaxis: N/a DVT Prophylaxis: Lovenox SQ IV fluids: None, diuresing Lines/Tubes: Peripheral IV Code Status: Full code Quality VTE Prophylaxis VTE prophylaxis: pharmacologic ordered Hospitalist [facility] Advance Care Plan I have confirmed that the patient's Advanced Care Plan is present, code status is documented, or surrogate decision maker is listed in patient medical record.: Yes Medication Reconciliation I have utilized all available resources to obtain, update and review the patients current medications (includes all prescriptions, OTC, herbals, cannabis, and nutritional supplements).: Yes
--- NOTE | 2025-03-26 18:19 | PC.NURSE ---
Female external catheter placed on patient
--- NOTE | 2025-03-26 18:30 | ADMGEN ---
This patient, Jenniffer Cm, was admitted to Medical Room 257-01. Patient/family oriented to hospital policies and general routines including ID bracelet, bed and alarms, visiting hours, pain management, procedures, bathroom and other care routines, personal items, smoking policy, room service/diet, and visiting hours. Information on how to activate the Rapid Response Team has been discussed. Patient/Family are encouraged to report perceived risks to care and to ask questions if they do not understand what they are told or what they should do.
--- OUTSIDE RECORDS SUMMARY | 2025-03-26 19:34 | XMS_ITS | Patient Health Record ---
Author Organization [facility] [place] ([address]) Address [address] [place] [address] Care Team Providers Care Cash Checker Name Role Phone Kirby Rodarte Primary Care Provider Sophie Pereyra Unavailable [phone] Allergies Allergen (clinical drug ingredient) Drug/Non Drug [...] Status Risk Notes Problem Chronic allergic conjunctivitis (88444233) Other chronic allergic conjunctivitis (H10.45) Active confirmed Problem Allergic rhinitis caused by pollen (disorder) (16416462) Allergic rhinitis due to pollen (J30.1) Active confirmed Problem Allergic rhinitis (44821205) Other allergic rhinitis (J30.89) Active confirmed Problem 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 confirmed Problem Allergic rhinitis caused by animal hair and dander ([id number]) Allergic rhinitis due to animal (cat) (dog) hair and dander (J30.81) Active confirmed Plan Of Treatment No Information Insurance Providers Payer Name Payer Address Payer Phone Subscriber Number Group Number Insured Name Patient Relationship to Insured Coverage Start Date Coverage End Date [employer] POS II [id number] [place] [phone] [id number] Jenniffer Cm Self - patient is the insured Medical (General) History Medical History History ICD Code hypothyroidism primary biliary cirrhosis osteoarthritis heart murmur Surgical History Surgery Date(Month/Year) tubal ligation 1973 hysterectomy 1974 cholecystectomy 1987 knee replacements Hospitalization History Reason Date(Month/Year) pneumonia 07/2022 childbirth 1973 childbirth 1968 childbirth 1964 childbirth 1962
--- OUTSIDE RECORDS SUMMARY | 2025-03-26 19:35 | XMS_ITS | Clinical Summary ---
Author Organization [facility] [employer] Address [facility] [facility] [place] [address] Care Team Providers Care Pool Servicer Name Role Phone Hasmukh Gonzalez MD Primary Care Provider Unavail able Source Comments [facility] [employer],non-owned Affiliates and Associated Physician Practices is amultiple site organization consisting of ambulatory clinics and hospital sitesin [place], [place], [place] and [place]. This disclosure is being madepursuant to the Care Everywhere program and may not contain all information available regarding this patient. 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
--- OUTSIDE RECORDS SUMMARY | 2025-03-26 19:36 | XMS_ITS | Patient Health Record ---
Author Organization [facility] [employer] Address [address] [place] [address] Care Team Providers Care Occupational Analyst Name Role Phone Kartik Hines DO Primary Care Provider UnavailAgnieszka Hankins Unavailable [phone] Anoop Robles Unavailable [phone] Allergies Allergen (clinical drug ingredient) Drug/Non Drug Allergy documented on EMR Reaction Allergy Type Onset Date Status Iodinated contrast media (substance) IODINATED CONTRAST MEDIA (uncoded) Unknown Allergy 07/07/2023 Active codeine Codeine Unknown Drug Allergy 07/07/2023 Active Reason For Referral No Information Medications Medication SIG (Take, Route, Frequency, Duration) Notes Start Date End Date Status Klor-Con M20 20 MEQ Tablet Extended Release Oral 07/07/2023 Active traZODone HCl 100 MG Tablet Oral 07/07/2023 Active Vilazodone HCl 40 MG Tablet 1 tablet wit h food Oral Once a day; Duration: 90 days 03/11/2025 Active Levothyroxine Sodium 200 MCG Tablet Oral 07/07/2023 Active Mirtazapine 30 MG Tablet 1 tablet at bed time Orally Once a day; Duration: 90 days 03/11/2025 Active Furosemide 40 MG Tablet Oral 07/07/2023 Active Vilazodone HCl 40 MG Tablet 1 TABLET WIT H FOOD BY MOUTH ONCE A DAY 90; Duration: 90 Active Olopatadine HCl 0.1 % Solution Ophthalmic 07/07/2023 Active Ursodiol 500 mg Tablet Oral 07/07/2023 Active Metoprolol Succinate ER 50 MG Tablet Extended Release 24 Hour Oral 07/07/2023 Active Immunizations Vaccine Route Administration Date Status Lilliam vences Holvi Covid-19 Vac cine 2nd dose Unknown 01/01/2021 Administered [employer] Covid-19 Vac cine 2nd dose Unknown 01/22/2021 Administered Social History Sex Assigned At : Social History Observation Description Sex Assigned At Female Social History Household: Social Info Question Answer Notes Household Marital status: Additional Details Category Social Info Options Details Migrated Social History Migrated Social History Alcohol Intake: None 05/11/2018,Tobacco Years: Never smoker 05/11/2018,Smoking Status: 0 07/07/2023 Problems Problem Type SNOMED Code ICD Code Onset Dates Problem Status W/U Status Risk Notes Problem Generalized anxiety disorder (16841134) Generalized anxiety disorder (F41.1) 07/07/19 Active confirmed Problem Primary insomnia (4273554) Primary insomnia (F51.01) 07/07/19 Active confirmed Problem Amnesia (97436046) Other amnesia (R41.3) 07/07/19 Active confirmed Problem Screening for cardiovascular system disease (303869157) Encounter for screening for cardiovascular disorders (Z13.6) Active confirmed Problem Dietary management surveillance (229245207) Dietary counseling and surveillance (Z71.3) Active confirmed Problem Mild recurrent major depression (75394545) MDD (major depressive disorder), recurrent episode, mild (F33.0) Active confirmed Vital Signs Heart Rate 77 /min 03/11/2025 Respiratory Rate 16 /min 03/11/2025 Height-cm 165.1 cm 03/11/2025 Blood pressure diastolic 76 mm Hg 03/11/2025 Weight-kg 77.11 kg 11/08/2024 Height 65.00 in 03/11/2025 Blood pressure systolic 148 mm Hg 03/11/2025 Weight 175 lbs 09/17/2024 BMI 28.29 kg/m2 11/08/2024 Encounters Encounter Location Date Provider Diagnosis [facility] [address] [facility] [address] [place] [address] 09/17/2024 Agnieszka Sorenson MDD (major depressiv e disorder), recurrent episode, mild F33.0 ; Generalized anxiety disorder F41.1 ; Primary insomnia F51.01 ; Other amnesia R41.3 and Encounter for screening for cardiovascular disorders Z13.6 [facility] [address] [place] [address] 11/08/2024 Agnieszka Sorenson Encounter for screen ing for depression Z13.31 ; MDD (major depressive disorder), recurrent episode, mild F33.0 ; Encounter for screening for cardiovascular disorders Z13.6 ; Dietary counseling and surveillance Z71.3 ; Generalized anxiety disorder F41.1 ; Primary insomnia F51.01 and Other amnesia R41.3 [facility] [address] [facility] [address] [place] [address] 03/11/2025 Agnieszka [facility]roxane Encounter for screen ing for depression Z13.31 ; MDD (major depressive disorder), recurrent episode, mild F33.0 ; Generalized anxiety disorder F41.1 ; Primary insomnia F51.01 and Other amnesia R41.3 [facility] [address] [facility] [address] [place] [address] 04/10/2024 Anoop Robles [facility] [address] [address] 08/06/2024 Agnieszka Sorenson [facility] [address] [facility] [address] [place] [address] 11/09/2024 Agnieszka Sorenson Assessments Encounter Date Diagnosis (ICD Code) Assessment Notes Treatment Notes Treatment Clinical Notes Section Notes 09/17/2024 MDD (major depressive disorder), recurrent episode, mild (ICD-10 - F33.0) 1. 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 has hx AFib Discuss and educated on adding Remeron 7.5 mg at bedtime for depression and anxiety Viibyrd 40 mg daily- hx depression and anxiety eat 350 calories with Viibryd SSRI side effects discussed including but not limited to, gastric upset, nausea, vomiting, diarrhea and/or constipation, weight changes, sexual side effects including loss of libido, increased suicidal thoughts/behav iors in children and young adults, and serotonin [...] dementia labs recently PCP- 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 Theseexercises can help prevent falls, improve mobility, and enhance overall function. Perform them in asafe space, use support if needed, and stop if you feel pain or dizziness.1. Gait Training Exercises- Walk in a straight line for 10-20 feet, heel-to-toe.- Step over small objects (cones or rolled towels).- Practice walking sideways and backwards.- Use a treadmill if available, under supervision.2. Balance Exercises- Stand on one foot for 10-30 seconds; switch legs.- Walk heel-to-toe in a straight line.- Use a balance board or cushion to challenge stability.- Practice rising from a chair without using your hands.3. Strength Training Exercises- [id number]: rise from a chair repeatedly.- Wall push-ups: stand at arm's length from a wall and push.- Step-ups on a low step or stairs.- Leg lifts while seated or lying down.Consult your primary care provider (PCP) before starting these exercises, especially if you havemedical conditions or difficulty performing them 1. 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 Discuss and educated on ALL RX Remeron 30 mg at bedtime Viibyrd 40 mg daily- hx depression and anxiety eat 350 calories with Viibryd SSRI side effects discussed including but not limited to, gastric upset, nausea, vomiting, diarrhea and/or constipation, weight changes, sexual side effects including loss of libido, increased suicidal thoughts/behav iors in children and young adults, and serotonin [...] not want medications SLUMS= 28 11/08/24 See neurologist uses walker hx fall early 2024 monitor Plan Of Treatment Next Appt Details Provider Name:Agnieszka Sorenson , 09/09/2025 01:00:00 PM, [address], [address], [place], [address], Insurance Providers Payer Name Payer Address Payer Phone Subscriber Number Group Number Insured Name Patient Relationship to Insured Coverage Start Date Coverage End Date Medicare-I l Medicare [address] [place] [address] [id number] FINA ACKERMAN Self - patient is the insured [employer] [address] [place] [address] [id number] FINA ACKERMAN Self - patient is the insured Medical (General) History Medical History History ICD Code Problems: Acute COVID-19 Generalized anxiety disorder Memory impairment Primary insomnia Recurrent major depression , AFIB BILARY Cirrohosis Surgical History Surgery Date(Month/Year) Removal of gallbladder (17430) Hysterectomy (03717) Cataract surgery (23935) Appendectomy (34758) Other
[2025-03-26] MEDS: MIRTAZAPINE 30 MG TABLET PO (23:00)
[2025-03-26] MEDS: METOPROLOL SUCCINATE EXT REL 50 MG TABCR PO (23:00)
[2025-03-27] VITALS (9 sets, daily range): BP systolic 147–163; BP diastolic 69–83; PULSE 54–87; RESP 15–20; TEMP 36.2–37; O2SAT 90–95
[2025-03-27 05:16] LABS: Hematocrit 38.1 % (37.0-47.0); Hemoglobin 12.0 g/dL (12.0-15.0); Immature Granulocyte Percent A 0.5 % (0-0.5); Lymphocytes Absolute Auto 0.45 K/mm3 (0.9-3.2); Mean Corpuscular HGB Conc 31.5 g/dl (32-36); Mean Corpuscular Hemoglobin 29.9 pg (26-34); Mean Corpuscular Volume 95.0 fl (80-100); Nucleated Red Blood Cells Absolute Auto 0.000 K/mm3 (0.0-0.012); Nucleated Red Blood Cells Perc 0.0 % (0.0-0.2); Platelet Count Result 237 k/mm3 (150-375); Red Blood Count 4.01 M/mm3 (4.2-5.4); White Blood Count 8.1 K/mm3 (4.5-10.0)
[2025-03-27 05:38] LABS: Anion Gap 3 mmol/L (4-12); Blood Urea Nitrogen 18 mg/dL (7-17); Calcium 8.3 mg/dL (8.4-10.2); Carbon Dioxide 29 mmol/L (22-30); Chloride 105 mmol/L (98-107); Estimated CRCL calculation 36 ml/min; Estimated Glomerular Filt Rate 48; Glucose 94 mg/dL (65-110); Potassium 3.9 mmol/L (3.4-5.0); Sodium 137 mmol/L (137-145)
[2025-03-27] MEDS: LEVOTHYROXINE SODIUM 100 MCG TABLET PO (06:05)
--- NOTE | 2025-03-27 07:32 | PM.IMPN ---
Progress Note: A&P Assessment and Plan (1) Acute on chronic diastolic heart failure: Code(s): I50.33 - Acute on chronic diastolic (congestive) heart failure Status: Acute Assessment and Plan: Here with symptoms (i.e. shortness of breath and lower extremity edema) consistent with CHF exacerbation. CXR also showing mild CHF. Reports compliance with home diuretic, however does drink water throughout the day due to her history of Sjogren's which may be contributing to her current exacerbation. Initial plan to discharge home, however the patient became hypoxic at 86% on room air with ambulation. Will plan to start IV diurese inpatient and reassess ambulatory O2 prior to discharge. BNP 3810 most recent echo (12/2024): Moderate LA enlargement, LVH with preserved systolic function, trivial MR, mildly sclerotic AV, mild RV dysfunction, moderate TR. hold home p.o. Lasix 20 mg daily, will continue as Lasix 40 mg IV b.i.d. monitor I&Os and daily weights trend renal function (2) CKD (chronic kidney disease): Qualifiers: Chronic kidney disease stage: unspecified stage Qualified Code(s): N18.9 - Chronic kidney disease, unspecified Code(s): N18.9 - Chronic kidney disease, unspecified Status: Chronic Assessment and Plan: creatinine 1.08, BUN 20, GFR 49 upon admission on 03/26 baseline creatinine: 0.9-1.2 trend renal function trend electrolytes, correct as needed (3) Hypertension: Qualifiers: Hypertension type: primary hypertension Qualified Code(s): I10 - Essential (primary) hypertension Code(s): I10 - Essential (primary) hypertension Status: Chronic Assessment and Plan: chronic, currently 148/72, stable continue home medications: Losartan, Metoprolol monitor Plan Diet: Heart healthy GI Prophylaxis: N/a DVT Prophylaxis: Lovenox SQ IV fluids: None, diuresing Lines/Tubes: Peripheral IV Code Status: Full code Subjective Date/time seen: 03/27/25 07:32 Interval history: 84 y/o F with PMH of Afib, CHF, CKD, Sjogren's, Meniere's, hypertension, hyperlipidemia, primary biliary cirrhosis, and hypothyroidism presents here with shortness of breath. 03/27/2025 Patient sitting comfortably in bed at time of examination. Endorses significant improvement in breathing. Still appears volume overloaded on exam but also improving. Continue IV Lasix, look for possible discharge tomorrow. Review of Systems Review of Systems: All systems reviewed & are unremarkable except as noted in HPI and below Exam Narrative: 2+ pitting edema to BLE, symmetric and extends to her upper shins, no edema noted to thighs. Const: General: comfortable and no acute distress Other: , female, elderly, nontoxic appearance HENMT: Face/Nose/Sinus: Normal nares present Mouth: Yes dry mucous membranes Eyes: General: appearance normal, both eyes and all related structures Sclera: sclerae normal Pupils: Equal, round and reactive pupils present EOM: EOMs intact bilaterally Resp: Effort & Inspection: normal respiratory effort Auscultation: clear to auscultation bilaterally Cardio: Rate: regular rate Other: Faint bibasilar crackles, no wheezing. GI: Other: Abdomen soft, nondistended, nontender. Normoactive bowel sounds in all quadrants. Skin: General skin exam: normal color and no rashes or lesions noted Wounds: no wounds Neuro: Cranial nerves: Yes Equal, round and reactive pupils present Speech: normal speech Motor exam (neuro): 5/5 motor strength present throughout Sensory Exam: normal sensation Other: A&O x4 Extrem: Other: 3+ pitting edema to BLE, symmetric and extends to her upper shins, no edema noted to thighs. Psych: Mental Status: mental status grossly normal Affect: normal affect Other: Good insight and judgment, very pleasant Objective Data Vital Signs Vital Signs: Vital Signs - 24 hr 03/26/25 13:54 03/26/25 14:41 03/26/25 15:04 Temperature 97.8 F Pulse Rate 59 L 64 Respiratory Rate 20 17 Blood Pressure 158/70 H 158/73 H Pulse Oximetry 97 94 98 Oxygen Delivery Room Air Room Air 03/26/25 16:02 03/26/25 16:27 03/26/25 16:36 Temperature Pulse Rate 59 L 64 Respiratory Rate 20 20 Blood Pressure 158/68 H 153/80 H Pulse Oximetry 96 86 L 96 Oxygen Delivery 03/26/25 18:09 03/26/25 20:00 03/26/25 20:00 Temperature 98.6 F Pulse Rate 66 60 Respiratory Rate 20 16 Blood Pressure 170/96 H 149/79 H Pulse Oximetry 95 95 Oxygen Delivery Room Air 03/26/25 20:00 03/26/25 23:00 03/27/25 00:00 Temperature 98.5 F Pulse Rate 61 60 69 Respiratory Rate 18 Blood Pressure 147/73 H Pulse Oximetry 90 Oxygen Delivery 03/27/25 00:00 03/27/25 04:00 03/27/25 04:00 Temperature 98.6 F Pulse Rate 67 65 69 Respiratory Rate 20 Blood Pressure 163/69 H Pulse Oximetry 93 Oxygen Delivery Intake/Output Intake/Output: Intake & Output 03/24/25 03/25/25 03/26/25 03/27/25 23:59 23:59 23:59 23:59 Intake Total 100 Output Total 450 Balance -350 Meds/Results Medications: Active Medications Generic Name Dose Route Start Last Admin Trade Name Freq PRN Reason Stop Dose Admin Amoxicillin/Clavulanate Potassium 1 tablet 03/27/25 09:00 Amoxicillin/Clavulanate K 875-125 Mg Tab PO 03/28/25 09:01 Q12HR [facility] Enoxaparin Sodium 40 mg 03/27/25 09:00 Enoxaparin 40 Mg/0.4 Ml Syringe SUB-Q DAILY HOWIE Furosemide 40 mg 03/27/25 21:00 Furosemide Inj 40 Mg/4 Ml Vial IV PUSH BID [facility] Levothyroxine Sodium 100 mcg 03/27/25 06:30 03/27/25 06:05 Levothyroxine Sodium 100 Mcg Tablet PO 100 mcg DAILY@0630 HOWIE Administration Losartan Potassium 25 mg 03/27/25 09:00 Losartan Potassium 25 Mg Tablet PO DAILY HOWIE Metoprolol Succinate 50 mg 03/26/25 22:30 03/26/25 23:00 Metoprolol Succinate Ext Rel 50 Mg Tabcr PO 50 mg Q12HR HOWIE Administration Mirtazapine 30 mg 03/26/25 22:35 03/26/25 23:00 Mirtazapine 30 Mg Tablet PO 30 mg QHS HOWIE Administration Miscellaneous Information 1 each 03/26/25 00:01 Ursodiol 500 Mg Tablet Is Nonformulary, Can Patient Bring From Home? XX 04/25/25 00:00 CLARIFY HOWIE Miscellaneous Information 1 each 03/26/25 00:01 Vilazodone 40 Mg Tablet Is Nonform, Can Patient Bring From Home? XX 04/25/25 00:00 CLARIFY [facility] Non-Formulary Medication 500 mg 03/27/25 09:00 Ursodiol PO 04/26/25 08:59 BID [facility] Non-Formulary Medication 40 mg 03/27/25 09:00 Vilazodone PO 04/26/25 08:59 DAILY [facility] Potassium Chloride 40 meq 03/27/25 09:00 Potassium Chloride 20 Meq Er Tablet PO DAILY [facility] Radiology Results: ITS Impressions Chest X-Ray 03/26/25 15:00 Impression: Mild CHF Labs Labs: Laboratory Results - last 24 hr 03/26/25 03/26/25 03/27/25 14:11 16:54 04:44 WBC 8.0 8.1 RBC 4.57 4.01 L Hgb 13.6 12.0 Hct 43.8 38.1 MCV 95.8 95.0 MCH 29.8 29.9 MCHC 31.1 L 31.5 L RDW 16.3 H 16.2 H Plt Count 271 237 MPV 9.4 9.4 Immature Gran % (Auto) 0.5 0.5 Neut % (Auto) 82.1 H 80.2 H Lymph % (Auto) 6.5 L 5.5 L [place] % (Auto) 7.5 10.1 H Eos % (Auto) 2.6 3.2 Baso % (Auto) 0.8 0.5 Lymph # (Auto) 0.52 L 0.45 L [place] # (Auto) 0.6 0.8 H Eos # (Auto) 0.2 0.3 Baso # (Auto) 0.1 0.0 Abs Immat Gran (auto) 0.04 H 0.04 H Absolute Neuts (auto) 6.5 6.5 Absolute Nucleated RBC 0.000 0.000 Nucleated RBC % 0.0 0.0 PT 13.2 INR 1.0 APTT 26.1 Sodium 138 137 Potassium 3.8 3.9 Chloride 103 105 Carbon Dioxide 28 29 Anion Gap 7 3 L BUN 20 H 18 H Creatinine 1.08 H 1.10 H Estim Creat Clear Calc 37 36 Estimated GFR 49 L 48 L Glucose 102 94 Calcium 8.7 8.3 L Total Bilirubin 0.6 AST 34 ALT 16 Alkaline Phosphatase 208 H Troponin I 0.015 NT-Pro-B Natriuret Pep 3810 H Total Protein 6.8 Albumin 3.7 Influenza A (RT-PCR) Negative Influenza B (RT-PCR) Negative RSV (RT-PCR) Negative SARS-CoV-2 RNA (RT-PCR) Negative Quality VTE Prophylaxis VTE prophylaxis: pharmacologic ordered
[2025-03-27] MEDS: ENOXAPARIN 40 MG/0.4 ML SYRINGE SUB-Q (08:45)
[2025-03-27] MEDS: METOPROLOL SUCCINATE EXT REL 50 MG TABCR PO ×2 (08:45→20:45)
[2025-03-27] MEDS: POTASSIUM CHLORIDE 20 MEQ ER TABLET 40 MEQ PO (08:45)
[2025-03-27] MEDS: LOSARTAN POTASSIUM 25 MG TABLET PO (08:45)
[2025-03-27] MEDS: FUROSEMIDE INJ 40 MG/4 ML VIAL IV PUSH ×2 (10:07→18:00)
[2025-03-27] MEDS: MIRTAZAPINE 30 MG TABLET PO (20:45)
[2025-03-28] VITALS (9 sets, daily range): BP systolic 139–148; BP diastolic 60–64; PULSE 60–98; RESP 16; TEMP 36.5–36.6; O2SAT 90–98
[2025-03-28] MEDS: LEVOTHYROXINE SODIUM 100 MCG TABLET PO (06:19)
[2025-03-28 07:41] LABS: Hematocrit 41.7 % (37.0-47.0); Hemoglobin 13.1 g/dL (12.0-15.0); Immature Granulocyte Percent A 0.3 % (0-0.5); Lymphocytes Absolute Auto 0.37 K/mm3 (0.9-3.2); Mean Corpuscular HGB Conc 31.4 g/dl (32-36); Mean Corpuscular Hemoglobin 29.8 pg (26-34); Mean Corpuscular Volume 94.8 fl (80-100); Nucleated Red Blood Cells Absolute Auto 0.000 K/mm3 (0.0-0.012); Nucleated Red Blood Cells Perc 0.0 % (0.0-0.2); Platelet Count Result 256 k/mm3 (150-375); Red Blood Count 4.40 M/mm3 (4.2-5.4); White Blood Count 7.4 K/mm3 (4.5-10.0)
[2025-03-28 08:14] LABS: Alanine Aminotransferase 13 U/L (6-35); Albumin Level 3.3 g/dL (3.5-5.1); Alkaline Phosphatase 182 U/L (38-126); Anion Gap 3 mmol/L (4-12); Aspartate Amino Transferase 36 U/L (14-36); Bilirubin,Total 0.8 mg/dL (0.2-1.3); Blood Urea Nitrogen 23 mg/dL (7-17); Calcium 8.7 mg/dL (8.4-10.2); Carbon Dioxide 33 mmol/L (22-30); Chloride 101 mmol/L (98-107); Estimated CRCL calculation 35 ml/min; Estimated Glomerular Filt Rate 46; Glucose 102 mg/dL (65-110); Potassium 4.2 mmol/L (3.4-5.0); Sodium 137 mmol/L (137-145); Total Protein 6.0 g/dL (6.3-8.2)
[2025-03-28 08:18] LABS: NT Pro B Type Natriuretic Pept 2090 pg/mL (19.9-100)
--- NOTE | 2025-03-28 08:40 | P.DS_ITS ---
DS: Admitting Diagnosis Discharge Date 03/28/2025 Admitting Diagnosis CHF exacerbation DS: Discharge Diagnosis Discharge Diagnosis (1) Acute on chronic diastolic heart failure: Code(s): I50.33 - Acute on chronic diastolic (congestive) heart failure Status: Acute Assessment and Plan: Here with symptoms (i.e. shortness of breath and lower extremity edema) consistent with CHF exacerbation. CXR also showing mild CHF. Reports compliance with home diuretic, however does drink water throughout the day due to her history of Sjogren's which may be contributing to her current exacerbation. Initial plan to discharge home, however the patient became hypoxic at 86% on room air with ambulation. Will plan to start IV diurese inpatient and reassess ambulatory O2 prior to discharge. * BNP 3810 * most recent echo (12/2024): Moderate LA enlargement, LVH with preserved systolic function, trivial MR, mildly sclerotic AV, mild RV dysfunction, moderate TR. * hold home p.o. Lasix 20 mg daily, will continue as Lasix 40 mg IV b.i.d. * monitor I&Os and daily weights * trend renal function (2) CKD (chronic kidney disease): Qualifiers: Chronic kidney disease stage: unspecified stage Qualified Code(s): N18.9 - Chronic kidney disease, unspecified Code(s): N18.9 - Chronic kidney disease, unspecified Status: Chronic Assessment and Plan: * creatinine 1.08, BUN 20, GFR 49 upon admission on 03/26 * baseline creatinine: 0.9-1.2 * trend renal function * trend electrolytes, correct as needed (3) Hypertension: Qualifiers: Hypertension type: primary hypertension Qualified Code(s): I10 - Essential (primary) hypertension Code(s): I10 - Essential (primary) hypertension Status: Chronic Assessment and Plan: * chronic, currently 148/72, stable * continue home medications: Losartan, Metoprolol * monitor Plan Diet: Heart healthy GI Prophylaxis: N/a DVT Prophylaxis: Lovenox SQ IV fluids: None, diuresing Lines/Tubes: Peripheral IV Code Status: Full code DS: Summary Hospital Course Reason for hospitalization: Shortness of breath Hospital Course: Per HPI: 84 y/o F with PMH of Afib, CHF, CKD, Sjogren's, Meniere's, hypertension, hyperlipidemia, primary biliary cirrhosis, and hypothyroidism presents here with shortness of breath. The patient presents here from home via EMS for further evaluation of shortness of breath. She reports onset of dyspnea and bilateral lower extremity swelling over the past several days. She reports she feels fluid overloaded. She has a history of CHF and is on 20 mg of Lasix b.i.d.. She reports compliance with her diuretic. However, she does also have a history of Sjogren's for which she has water on her at all times and takes multiple sips throughout the day and does not always follow a low sodium diet. She denies associated productive cough, fever, chills, body aches, chest pain, abdominal pain, or urinary symptoms. She is unsure if she has had any weight gain as she does not check her weight on a daily basis. Notes she was recently diagnosed with a UTI, has 3 doses left of her abx course. Initial VS at presentation: 97.8? F, HR 59, R 20, 158/70, and 97% on RA. ED workup showed: No leukocytosis, no anemia, normal coags, creatinine 1.08 and GFR 49, BNP 3810, and viral PCR negative. CXR showed mild CHF. EKG showed atrial fibrillation, rate 64, and no significant changes compared to prior. Hospital Course: Throughout hospitalization, blood work and vital signs have remained stable. BNP decreased from 3810->2090. Lower extremities appear much less fluid overloaded, distal pulses intact. Patient states that her lower extremity swelling is at her baseline at this point. She feels as though her breathing is also at her baseline. Patient is otherwise hemodynamically stable. Lung zhou are clear to auscultation and patient remains off of O2. Patient expressed great interest in being discharged and she is otherwise hemodynamically stable for discharge at this point. She will be instructed to follow-up with her PCP and/or coremaker for further possible adjustments to her diuretics. Home O2 evaluation was ordered for prior to discharge. Prior to discharge, patient den ied any shortness on breath, nausea/vomiting, headache/dizziness, lower extremity pain or swelling worse than normal, abdominal pain. Patient can be safety discharged home at this time. Status at Discharge Functional status at discharge: independent ambulation Overall status at discharge: patient is back to baseline Time Spent with Patient Time attestation: Total time spent providing and/or coordinating discharge services:28 Exam Narrative: 1+ pitting edema to BLE, symmetric and e xtends to her upper shins, no edema noted to thighs. Const: General: comfortable and no acute distress Other: , female, elderly, nontoxic appearance HENMT: Face/Nose/Sinus: Normal nares present Mouth: Yes dry mucous membranes Eyes: General: appearance normal, both eyes and all related structures Sclera: sclerae normal Pupils: Equal, round and reactive pupils present EOM: EOMs intact bilaterally Resp: Effort & Inspection: normal respiratory effort Auscultation: clear to auscultation bilaterally Cardio: Rate: regular rate Other: Faint bibasilar crackles, no wheezing. GI: Other: Abdomen soft, nondistended, nontender. Normoactive bowel sounds in all quadrants. Skin: General skin exam: normal color and no rashes or lesions noted Wounds: no wounds Neuro: Cranial nerves: Yes Equal, round and reactive pupils present Speech: normal speech Motor exam (neuro): 5/5 motor strength present throughout Sensory Exam: normal sensation Other: A&O x4 Extrem: Other: 3+ pitting edema to BLE, symmetric and e xtends to her upper shins, no edema noted to thighs. Psych: Mental Status: mental status grossly normal Affect: normal affect Other: Good insight and judgment, very pleasant DS: Data Data Completed and Pending Labs on day of discharge: Labs from last 24 hours 03/28/25 07:35 WBC Pending RBC Pending Hgb Pending Hct Pending MCV Pending MCH Pending MCHC Pending RDW Pending Plt Count Pending MPV Pending Immature Gran % (Auto) Pending Neut % (Auto) Pending Lymph % (Auto) Pending Douglas % (Auto) Pending Eos % (Auto) Pending Baso % (Auto) Pending Lymph # (Auto) Pending [place] # (Auto) Pending Eos # (Auto) Pending Baso # (Auto) Pending Abs Immat Gran (auto) Pending Absolute Neuts (auto) Pending Absolute Nucleated RBC Pending Nucleated RBC % Pending Sodium 137 Potassium 4.2 Chloride 101 Carbon Dioxide 33 H Anion Gap 3 L BUN 23 H Creatinine 1.13 H Estim Creat Clear Calc 35 Estimated GFR 46 L Glucose 102 Calcium 8.7 Total Bilirubin 0.8 AST 36 ALT 13 Alkaline Phosphatase 182 H NT-Pro-B Natriuret Pep 2090 H Total Protein 6.0 L Albumin 3.3 L Discharge Plan Discharge Attending physician on discharge: Ferny Shanks Consulting providers: Davian Childress Discharging Clinician: Davian Childress Anticipated Discharge Date/Time: 03/28/25 08:39 Patient Disposition: Home Activity: as tolerated Diet: regular Discharge Instructions: Discharge disposition: Home Take medications as prescribed Monitor blood pressures Take caution while standing, rising, or moving Change positions slowly taking a break between each position change If you standing feel dizzy sit back down and take a break Encouraged to continue with yearly vaccinations Return to the emergency department if you develop sudden shortness of breath, chest pain, nausea, vomiting, upset stomach or intractable diarrhea Return to the emergency department if you develop fever greater than 101.5 Follow-up with the primary care physician within 1-2 weeks. Discuss with them the possibility of increasing your Lasix. Thank you for choosing [facility] for your healthcare needs Patient Instructions: Antibiotic Form, Heart Failure (GEN) Patient Language: Albanian Stand Alone Forms: General Discharge Information Follow-up/Referrals: Andrei Regan APRN [Primary Care Provider, Internal Medicine] Discharge Medications: Continued potassium chloride 20 mEq tablet extended release 40 meq PO DAILY furosemide 20 mg tablet 20 mg PO BID Qty: 60 5RF metoprolol succinate 50 mg tablet extended release 24 hr See Rx Instructions .ROUTE .COMPLEX Qty: 180 2RF Dose Instruction: TAKE 1 TABLET BY MOUTH TWICE A DAY Rx Instructions: TAKE 1 TABLET BY MOUTH TWICE A DAY ursodiol 500 mg tablet 500 mg PO BID Qty: 180 2RF vilazodone 40 mg tablet 40 mg PO DAILY mirtazapine 30 mg tablet 30 mg PO QHS losartan 25 mg tablet 25 mg PO DAILY Qty: 90 1RF levothyroxine 200 mcg tablet See Rx Instructions .ROUTE .COMPLEX Qty: 90 3RF Dose Instruction: TAKE 1 TABLET BY MOUTH DAILY Rx Instructions: TAKE 1 TABLET BY MOUTH DAILY Discontinued amoxicillin-pot clavulanate 875-125 mg tablet 1 tablet PO BID Qty: 20 0RF Date of admission: 03/26/25 16:41 Primary Care Provider: Andrei Regan Admitting Provider: Luis Veras Attending physician on admission: Luis Veras Condition: Stable Quality VTE Prophylaxis VTE prophylaxis: pharmacologic ordered
[2025-03-28] MEDS: METOPROLOL SUCCINATE EXT REL 50 MG TABCR PO (09:24)
[2025-03-28] MEDS: LOSARTAN POTASSIUM 25 MG TABLET PO (09:24)
[2025-03-28] MEDS: POTASSIUM CHLORIDE 20 MEQ ER TABLET 40 MEQ PO (09:24)
[2025-03-28] MEDS: ENOXAPARIN 40 MG/0.4 ML SYRINGE SUB-Q (09:24)
[2025-03-28] MEDS: FUROSEMIDE INJ 40 MG/4 ML VIAL IV PUSH (09:25)
--- NOTE | 2025-03-28 11:11 | HOMEO2EVAL ---
Evaluation was performed at [facility] Home Oxygen Evaluation RC: Home Oxygen (O2) Evaluation Start: 03/27/25 13:12 Freq: ONCE Status: Active Protocol: RPE Activity Type Activity Date Activity User E-sign Co-sign Detail Recorded Client Recorded Date Recorded By Document 03/28/25 10:45 [email or web address] [email or web address] 03/28/25 11:11 DJO Document 03/28/25 10:50 [email or web address] [email or web address] 03/28/25 11:11 DJO Document 03/28/25 11:00 [email or web address] [email or web address] 03/28/25 11:11 DJO 03/28/25 03/28/25 03/28/25 10:45 10:50 11:00 Home O2 Evaluation [Oxygen] -Test Phase Resting Exercise Resting -Oxygen Delivery Room Air Room Air Room Air [Pulse Oximetry] -Pulse Oximetry (90-100 %) 96 90 96 [Pulse Rate] -Pulse Rate (60-100 beats/min) 86 98 88 [Evaluation] -Activity Tolerance Fair [Charges] -Evaluation Charges O2 Evaluation by Pulmonary
--- OUTSIDE RECORDS SUMMARY | 2025-03-29 10:28 | XMS_ITS | Clinical Summary ---
Author Organization [email or web address] Address [facility] [place] [address] Care Team Providers Care Relief Mate Name Role Phone Hasmukh Gonzalez MD Primary Care Provider Unavail able Source Comments [email or web address],non-owned Affiliates and Associated Physician Practices is amultiple site organization consisting of ambulatory clinics and hospital sitesin [place], [place], [place] and [place]. This disclosure is being madepursuant to the Care Everywhere program and may not contain all information available regarding this patient. Last updated 18.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
--- OUTSIDE RECORDS SUMMARY | 2025-03-29 10:28 | XMS_ITS | Patient Health Record ---
Author Organization [facility] ([address]) Address [address] [place] [address] Care Team Providers Care Cigar Maker Name Role Phone Kirby Rodarte Primary Care Provider Sophie Pereyra Unavailable [phone] Allergies Allergen (clinical drug ingredient) Drug/Non Drug [...] Status Risk Notes Problem Chronic allergic conjunctivitis (11117313) Other chronic allergic conjunctivitis (H10.45) Active confirmed Problem Allergic rhinitis caused by pollen (disorder) (46936453) Allergic rhinitis due to pollen (J30.1) Active confirmed Problem Allergic rhinitis (52073776) Other allergic rhinitis (J30.89) Active confirmed Problem 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 confirmed Problem Allergic rhinitis caused by animal hair and dander ([id number]) Allergic rhinitis due to animal (cat) (dog) hair and dander (J30.81) Active confirmed Plan Of Treatment No Information Insurance Providers Payer Name Payer Address Payer Phone Subscriber Number Group Number Insured Name Patient Relationship to Insured Coverage Start Date Coverage End Date [employer] POS II [address] [place] [phone] [id number] Jenniffer Cm Self - patient is the insured Medical (General) History Medical History History ICD Code hypothyroidism primary biliary cirrhosis osteoarthritis heart murmur Surgical History Surgery Date(Month/Year) tubal ligation 1973 hysterectomy 1974 cholecystectomy 1987 knee replacements Hospitalization History Reason Date(Month/Year) pneumonia 07/2022 childbirth 1973 childbirth 1968 childbirth 1964 childbirth 1962
--- OUTSIDE RECORDS SUMMARY | 2025-03-29 10:29 | XMS_ITS | Patient Health Record ---
Author Organization [facility] Address [address] [place] [address] Care Team Providers Care Cashiers Supervisor Name Role Phone Kartik Hines DO Primary Care Provider UnavailAgnieszka Hankins Unavailable [phone] Anoop Robles Unavailable [phone] Allergies Allergen (clinical drug ingredient) Drug/Non Drug [...] Vaccine Route Administration Date Status Lilliam vences Kynogon Covid-19 Vac cine 2nd dose Unknown 01/01/2021 Administered Poptipntech Covid-19 Vac cine 2nd dose Unknown 01/22/2021 [...] Status Risk Notes Problem Generalized anxiety disorder (77913150) Generalized anxiety disorder (F41.1) 07/07/19 Active confirmed Problem Primary insomnia (0910794) Primary insomnia (F51.01) 07/07/19 Active confirmed Problem Amnesia (84117571) Other amnesia (R41.3) 07/07/19 Active confirmed Problem Screening for cardiovascular system disease (971827924) Encounter for screening for cardiovascular disorders (Z13.6) Active confirmed Problem Dietary management surveillance (263782823) Dietary counseling and surveillance (Z71.3) Active confirmed Problem Mild recurrent major depression (24876807) MDD (major depressive disorder), recurrent episode, mild (F33.0) Active confirmed Vital Signs Heart Rate 77 /min 03/11/2025 Respiratory Rate 16 /min 03/11/2025 Height-cm 165.1 cm 03/11/2025 Blood pressure diastolic 76 mm Hg 03/11/2025 Weight-kg 77.11 kg 11/08/2024 Height 65.00 in 03/11/2025 Blood pressure systolic 148 mm Hg 03/11/2025 Weight 175 lbs 09/17/2024 BMI 28.29 kg/m2 11/08/2024 Encounters Encounter Location Date Provider Diagnosis [facility] [address] [facility] [address] [place] [address] 09/17/2024 Agnieszka Sorenson MDD (major depressiv e disorder), recurrent episode, mild F33.0 ; Generalized anxiety disorder F41.1 ; Primary insomnia F51.01 ; Other amnesia R41.3 and Encounter for screening for cardiovascular disorders Z13.6 [facility] [address] [place] [address] 11/08/2024 Agnieszka Sorenson Encounter for screen ing for depression Z13.31 ; MDD (major depressive disorder), recurrent episode, mild F33.0 ; Encounter for screening for cardiovascular disorders Z13.6 ; Dietary counseling and surveillance Z71.3 ; Generalized anxiety disorder F41.1 ; Primary insomnia F51.01 and Other amnesia R41.3 [facility] [address] [facility] [address] [place] [address] 03/11/2025 Agnieszka [facility] Encounter for screen ing for depression Z13.31 ; MDD (major depressive disorder), recurrent episode, mild F33.0 ; Generalized anxiety disorder F41.1 ; Primary insomnia F51.01 and Other amnesia R41.3 [facility] [address] [facility] [address] [place] [address] 04/10/2024 Anoop Robles [facility] [address] [address] 08/06/2024 Agnieszka Sorenson [facility] [address] [facility] [address] [place] [address] 11/09/2024 Agnieszka Sorenson Assessments Encounter Date Diagnosis (ICD Code) Assessment Notes Treatment Notes Treatment Clinical Notes Section Notes 09/17/2024 MDD (major depressive disorder), recurrent episode, mild (ICD-10 - F33.0) 1. Recurrent major depression - has dementia labs recently- will obtain seen bottle caser recently has hx AFib Discuss and educated [...] dementia labs recently PCP- will obtain seen bottle caser has hx AFib Discuss and educated on [...] dementia labs recently PCP- will obtain seen bottle caser has hx AFib Discuss and educated on [...] has dementia labs PCP- will obtain seen bottle caser has hx AFib Discuss and educated on [...] has dementia labs PCP- will obtain seen bottle caser has hx AFib Discuss and educated on [...] dementia labs recently PCP- will obtain seen bottle caser has hx AFib Discuss and educated on [...] has dementia labs PCP- will obtain seen bottle caser has hx AFib Discuss and educated on [...] has dementia labs recently- will obtain seen bottle caser recently has hx AFib Discuss and educated [...] has dementia labs recently- will obtain seen bottle caser recently has hx AFib Discuss and educated [...] has dementia labs PCP- will obtain seen bottle caser has hx AFib Discuss and educated on [...] dementia labs recently PCP- will obtain seen bottle caser has hx AFib Discuss and educated on [...] has dementia labs PCP- will obtain seen bottle caser has hx AFib Discuss and educated on [...] walker hx fall early 2024 monitor 11/08/2024 Generalized anxiety disorder (ICD-10 - F41.1) 1. 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 seen bottle caser has hx AFib Discuss and educated on [...] has dementia labs recently- will obtain seen bottle caser recently has hx AFib Discuss and educated [...] patient does not want medications monitor 09/17/2024 Encounter for screening for cardiovascular disorders (ICD-10 - Z13.6) 1. Recurrent major depression - has dementia labs recently- will obtain seen bottle caser recently has hx AFib Discuss and educated [...] dementia labs recently PCP- will obtain seen bottle caser has hx AFib Discuss and educated on [...] dementia labs recently PCP- will obtain seen bottle caser has hx AFib Discuss and educated on [...] monitor 11/08/2024 Other referral to the local [facility] or national office of the Alzheimer's Association ( ; http://www.[employer].or g), the Alzheimer's Disease Education and Referral Center (ADEAR) ( ; http://www.halley.ni h.gov/Alzheimers/ ), 1. 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 seen bottle caser has hx AFib Discuss and educated on [...] without using your hands.3. Strength Training Exercises- [id number]: rise from a chair repeatedly.- Wall push-ups: stand at arm's length from a wall and push.- Step-ups on a low step or stairs.- Leg lifts while seated or lying down.Consult your primary care provider (PCP) before starting these exercises, especially if you havemedical conditions or difficulty performing them 1. 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 obtain seen bottle caser has hx AFib Discuss and educated on [...] Provider Name:Agnieszka Sorenson , 09/09/2025 01:00:00 PM, [address], [address], [place], [address], Insurance Providers Payer Name Payer Address Payer Phone Subscriber Number Group Number Insured Name Patient Relationship to Insured Coverage Start Date Coverage End Date Medicare-I l Medicare [address] [place] [address] [id number] FINA ACKERMAN Self - patient is the insured [employer] [address] [place] [address] [id number] FINA ACKERMAN Self - patient is the insured Medical (General) History Medical History History ICD Code Problems: Acute COVID-19 Generalized anxiety disorder Memory impairment Primary insomnia Recurrent major depression , AFIB BILARY Cirrohosis Surgical History Surgery Date(Month/Year) Removal of gallbladder (55276) Hysterectomy (53253) Cataract surgery (18591) Appendectomy (76459) Other
== END 2025-03-28 11:45 | disposition home or self-care (01) ==
LOC: ANHED 16:55 → ANH2MED 19:08
PROVIDERS: Physician Assistant; Student in an Organized Health Care Education/Training Program; Admitting Provider Internal Medicine; Emergency Provider Emergency Medicine; PCP Nurse Practitioner; Visit Provider General Practice
DX: I13.0 Hypertensive heart and chronic kidney disease with heart failure and stage 1 through stage 4 chronic kidney disease, or unspecified chronic kidney disease (principal); I50.33 Acute on chronic diastolic (congestive) heart failure; N18.9 Chronic kidney disease, unspecified; I48.91 Unspecified atrial fibrillation; J81.1 Chronic pulmonary edema; J84.10 Pulmonary fibrosis, unspecified; R09.89 Other specified symptoms and signs involving the circulatory and respiratory systems; I48.0 Paroxysmal atrial fibrillation; E78.5 Hyperlipidemia, unspecified; I42.1 Obstructive hypertrophic cardiomyopathy; K74.3 Primary biliary cirrhosis; E03.9 Hypothyroidism, unspecified; H81.09 Meniere's disease, unspecified ear; M35.00 Sjogren syndrome, unspecified; N81.6 Rectocele; Z20.822 Contact with and (suspected) exposure to COVID-19; Z87.448 Personal history of other diseases of urinary system; Z86.79 Personal history of other diseases of the circulatory system; Z85.828 Personal history of other malignant neoplasm of skin; Z87.2 Personal history of diseases of the skin and subcutaneous tissue; Z96.659 Presence of unspecified artificial knee joint; Z90.49 Acquired absence of other specified parts of digestive tract; Z90.710 Acquired absence of both cervix and uterus; Z82.49 Family history of ischemic heart disease and other diseases of the circulatory system; Z82.3 Family history of stroke; Z83.3 Family history of diabetes mellitus; Z80.8 Family history of malignant neoplasm of other organs or systems
CPT/HCPCS: 36415; 71046; 80048; 80053; 83880; 84484; 85025; 85610; 85730; 87637; 93005; 94618; 96374; 99285; A9270; J1650; J1938